=== PATIENT | male | born 1945 | race Caucasian/White ===

== ENCOUNTER 2024-10-17 13:34 | Outpatient (OUT) | payer MEDICARE, BC, SELFPAY ==
--- NOTE | 2024-10-17 13:45 | ECG_ITS ---
[facility] Test Date: 2024-10-17 Pat Name: SINGH BOWMAN Department: Room: - Gender: Male Manager Sap: : 1945 Requested By: MEDINA BUTLER Order Number: [id number] Brayan MD: DWIGHT BARNETT M.D. Measurements Intervals [place] Rate: 78 P: ME: QRS: 12 QRSD: 99 T: 62 QT: 390 QTc: 445 Interpretive Statements ATRIAL FIBRILLATION NONSPECIFIC T-WAVE ABNORMALITY ABNORMAL RHYTHM ECG No previous ECG available for comparison Electronically Signed On 10-17-2024 18:41:51 EDT by DWIGHT BARNETT M.D.
--- NOTE | 2024-10-17 14:52 | XR_ITS ---
[address] [address] Patient Name: SINGH BOWMAN MRN: [id number] date: 1945 Sex: M Assigned Patient Location: [facility] Current Patient Location: [facility] Accession/Order Number: [id number] Exam Date: 10/17/2024 17:53 Report Date: 10/17/2024 17:55 At the request of: MEDINA BUTLER MD Procedure: XR chest 2V Plain film chest 2 view HISTORY: Presurgical evaluation COMPARISON: None FINDINGS: SUPPORT DEVICES: None POSTSURGICAL CHANGES: None HEART: Within normal limits PULMONARY RADHA: Within normal limits MEDIASTINUM: Unremarkable LUNGS AND PLEURA: No acute lung process, pleural effusion or pneumothorax identified. BONY STRUCTURES: Thoracic hyperostosis ADDITIONAL FINDINGS None XR/XR chest 2V IMPRESSION: No acute process. Impression dictated by: Nii Minaya M.D.10/17/2024 5:55 PM Dictation Location: [place] [address] Electronically authenticated by: [id number] Y Date: 10/17/2024 17:55
[2024-10-17 14:57] LABS: Anion Gap 10.8; BUN Creatinine Ratio 13.4; Calcium 8.8 mg/dL (8.5-10.1); Carbon Dioxide 27.4 mmol/L (21.0-32.0); Chloride 104 mmol/L (98-107); Estimated GFR (African America >60 (>=60 mL/min/1.73m^2); Estimated GFR (Non-African Ame 55 (>=60 mL/min/1.73m^2); Glucose 112 mg/dL (74-106); Potassium 4.2 mmol/L (3.5-5.1); Sodium 138 mmol/L (136-145)
[2024-10-17 15:11] LABS: Basophils Absolute Auto 0.1 10^3/uL (0.0-0.1); Basophils Percent Auto 0.7 % (0.2-2.0); Eosinophils Absolute Auto 0.1 10^3/uL (0.0-0.7); Eosinophils Percent Auto 1.1 % (0.9-7.0); Hematocrit 39.8 % (42.0-54.0); Hemoglobin 12.7 g/dL (14.0-18.0); INR 1.23; Immature Granulocytes Abs Auto 0.04 10^3/uL (0.00-0.03); Immature Granulocytes Pct Auto 0.5 % (0.0-0.5); Lymphocytes Absolute Auto 0.8 10^3/uL (1.2-3.8); Mean Corpuscular HGB Conc 31.9 g/dL (29.9-35.2); Mean Corpuscular Hemoglobin 28.7 pg (25.9-34.0); Mean Corpuscular Volume 89.8 fL (80.0-94.0); Mean Platelet Volume 8.6 fL (9.5-13.5); Monocytes Absolute Auto 0.7 10^3/uL (0.3-0.8); Monocytes Percent Auto 7.9 % (1.7-12.0); Neutrophils Absolute Auto 6.9 10^3/uL (1.4-6.5); Neutrophils Percent Auto 80.8 % (43.0-75.0); Partial Thromboplastin Time 39.6 sec (22.3-36.2); Platelet Count 472 10^3/uL (150-450); Prothrombin Time 12.8 sec (9.0-11.6); Red Blood Count 4.43 10^6/uL (4.70-6.10); Red Cell Distribution Width 13.5 % (11.0-15.0); White Blood Count 8.6 10^3/uL (4.0-11.0)
== END 2024-10-17 13:35 | disposition home or self-care (01) ==
LOC: PST 13:36
PROVIDERS: PCP Family Medicine; Visit Provider Urology
DX: Z01.810 Encounter for preprocedural cardiovascular examination (principal); Z01.812 Encounter for preprocedural laboratory examination; N40.1 Benign prostatic hyperplasia with lower urinary tract symptoms
CPT/HCPCS: 36415; 71046; 80048; 85025; 85610; 85730; 93005

== ENCOUNTER 2024-10-17 13:42 | Outpatient (OUT) | payer MEDICARE, BC, SELFPAY ==
[2024-10-17 15:37] LABS: Free T4 2.69 ng/dL (0.76-1.46)
[2024-10-17 15:44] LABS: Free T3 4.44 pg/mL (2.18-3.98); Thyroid Stimulating Hormone <0.007 uIU/mL (0.358-3.740)
== END 2024-10-17 13:43 | disposition home or self-care (01) ==
LOC: LAB 13:43
PROVIDERS: PCP Family Medicine; Visit Provider Internal Medicine
DX: Z01.810 Encounter for preprocedural cardiovascular examination (principal); Z01.812 Encounter for preprocedural laboratory examination; E05.90 Thyrotoxicosis, unspecified without thyrotoxic crisis or storm
CPT/HCPCS: 36415; 80048; 84439; 84443; 84481; 85025; 85610; 85730

== ENCOUNTER 2024-11-01 11:15 | Day surgery (SDC) | payer MEDICARE, BC, SELFPAY ==
[2024-10-17 14:20] VITALS: BP 135/70; PULSE 99; TEMP 36.6; O2SAT 100; BMI 25.0
[2024-11-01] VITALS (18 sets, daily range): BP systolic 102–172; BP diastolic 71–107; PULSE 69–112; TEMP 36.2–36.9; O2SAT 90–97; BMI 23.8
--- OUTSIDE RECORDS SUMMARY | 2024-11-01 11:30 | XMS_ITS | CCD ---
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 Role Phone RACHIDMARY GRACE Referring Unavailable RACHID, MARY GRACE Powell Primary Care Unavailable JUNIE, MENNATALLAH M Admitting Unavailable JUNIE, MENNATALLAH M Attending Unavailable RACHID, MARY GRACE Powell Primary Care Unavailable JUNIE, MENNATALLAH M Attending Unavailable JUINE, MENNATALLAH M Referring Unavailable RACHID, MARY GRACE Powell Primary Care Unavailable JUNIE, MENNATALLAH M Attending Unavailable JUNIE, MENNATALLAH M Referring Unavailable RACHID, MARY GRACE Powell Primary Care Unavailable HERMELINDA GALAN Attending Unavailable RACHID, MARY GRACE Powell Primary Care Unavailable HERMELINDA GALAN Attending Unavailable RACHID, MARY GRACE Powell Primary Care Unavailable EMILIANO ALANIZ Attending Unavailable RACHID, MARY GRACE Powell Referring Unavailable RACHID, MARY GRACE Powell Primary Care Unavailable MEGAN LINO Referring Unavailable RACHID, MARY GRACE Powell Primary Care Unavailable Román IRON CUTTER, Michell R Unavailable Mary Grace Rashid MD Andre Primary Care Provider Román IRON CUTTER, Michell R Unavailable Brooks Jeffery LPN Unavailable RACHID MARY GRACE Powell Primary Care Physician [phone] Medina BUTLER Attending Unavailable Medina BUTLER Attending Unavailable Medina BUTLER Attending Unavailable Medina BUTLER Attending Unavailable Medina BUTLER Attending Unavailable Rachid PALMA, Mary Grace Andre Primary Care Provider Mary Grace Rashid MD Unavailable Rachid PALMA, Mary Grace Andre Primary Care Provider ODELL ROJAS Attending Unavailable RACHID MARY GRACE Powell Referring Unavailable RACHID MARY GRACE Powell Primary Care Unavailable SHIKHA ROWELL Attending Unavailable RACHID MARY GRACE Powell Referring Unavailable SHIKHA ROWELL Attending Unavailable DAVID BYRNE Attending Unavailable MARY GRACE RASHID Referring Unavailable CORNELIO ISSA Attending Unavailable DAVID BYRNE Referring Unavailable MARY GRACE RASHID Attending Unavailable MARY GRACE RASHID Referring Unavailable Medications Current Medications Medication Drug Class(es) Dates Sig (Normalized) Sig (Original) apixaban 5 mg oral tablet (20 sources) Factor Xa Inhibitor Start: 06-15-2022 End: 12-12-2023 take 1 tablet by mouth twice daily apixaban (ELIQUIS) 5 mg tablet TAKE 1 TABLET BY MOUTH TWICE A DAY 60 tablet 11 12/12/2023 Active atorvastatin 20 mg oral tablet (20 sources) HMG-CoA Reductase Inhibitor Start: 06-25-2021 End: 10-19-2024 take 1 tablet by mouth once daily atorvastatin (Lipitor) 20 MG tablet Indications: Mixed hyperlipidemia (CMS/HCC) Take 1 tablet (20 mg) by mouth Daily 90 tablet 11 07/31/2024 Active 24 hr dilTIAZem hydrochloride 180 mg extended release oral capsule (2 sources) Calcium Channel Dara Start: 10-10-2024 take 1 capsule by mouth every twenty-four hours in the morning dilTIAZem XR (DILACOR XR) 180 MG 24 hr capsule Take 1 capsule (180 mg total) by mouth in the morning. 30 capsule 1 10/10/2024 Active donepezil hydrochloride 5 mg oral tablet (6 sources) Start: 10-01-2024 End: 10-01-2025 take 1 tablet by mouth at bedtime donepezil (Aricept) 5 MG tablet Indications: Moderate late onset Alzheimer's dementia, unspecified whether behavioral, psychotic, or mood disturbance or anxiety (CMS/HCC) Take 1 tablet (5 mg) by mouth at bedtime 30 tablet 3 10/01/2024 10/01/2025 Active finasteride 5 mg oral tablet (20 sources) 5-alpha Reductase Inhibitor Start: 10-26-2023 take 1 tablet by mouth once daily finasteride (Proscar) 5 MG tablet Indications: Enlarged prostate TAKE ONE TABLET BY MOUTH DAILY 90 tablet 3 10/26/2023 Active hydroCHLOROthiazide 50 mg / triamterene 75 mg oral tablet (15 sources) Potassium-spar ing Diuretic, Thiazide Diuretic Start: 08-24-2022 End: 10-19-2024 take 1 tablet by mouth once in the morning triamterene-hydroCH LOROthiazid (MAXZIDE) 75-50 mg per tablet Take 1 tablet by mouth in the morning. 30 tablet 11 08/24/2022 10/19/2024 Discontinued (Discontinued by another clinician) Start: 08-24-2022 End: 08-17-2024 take 1 tablet by mouth in the morning triamterene-hydrochlorothiazide (Maxzide ) 75-50 MG tablet Take 1 tablet by mouth in the morning. 08/24/2022 08/17/2024 Discontinued (Therapy completed) methazolAMIDE 50 mg oral tablet (1 source) take 1 tablet by mouth in the morning, then take 1 tablet by mouth at bedtime methazolAMIDE (NEPTAZANE) 50 mg tablet Take 1 tablet (50 mg total) by mouth in the morning and 1 tablet (50 mg total) before bedtime. Active methIMAzole 10 mg oral tablet (9 sources) Thyroid Hormone Synthesis Inhibitor Start: 09-18-19 End: 03-17-20 take 1 tablet by mouth in the morning methIMAzole (Tapazole) 10 MG tablet Indications: Hyperthyroidism (CMS/HCC) Take 1 tablet (10 mg) by mouth in the morning and 1 tablet (10 mg) before bedtime. 180 tablet 1 09/18/2024 03/17/2025 Active metoprolol tartrate 25 mg oral tablet (14 sources) beta-Adrenergic Dara Start: 09-10-19 take 25 mg by mouth once daily metoprolol 25 mg, Oral, Daily, Refills(s) 0 Start Date: 09/10/24 Status: Ordered Start: 09-06-2024 End: 09-06-2025 take 1 tablet by mouth once daily metoprolol succinate XL (Toprol-XL) 25 MG 24 hr tablet Indications: Hyperthyroidism (CMS/HCC) Take 1 tablet (25 mg) by mouth Daily Do not crush or chew. 30 tablet 11 09/06/2024 09/06/2025 Active predniSONE 20 mg oral tablet (7 sources) Start: 09-06-2024 End: 09-20-2024 take 1 tablet by mouth once daily predniSONE (Deltasone) 20 MG tablet Indications: Hyperthyroidism (CMS/HCC) Take 1 tablet (20 mg) by mouth Daily for 14 days 14 tablet 09/06/2024 09/20/2024 Active tamsulosin hydrochloride 0.4 mg oral capsule (20 sources) alpha-Adrenerg ic Dara Start: 09-23-2023 End: 04-12-2025 take 1 capsule by mouth once daily tamsulosin (Flomax) 0.4 MG 24 hr capsule Indications: Enlarged prostate Take 1 capsule (0.4 mg) by mouth Daily 90 capsule 11 04/12/2024 04/12/2025 Active Completed/Discontinued Medications Medication Drug Class(es) Dates Sig (Normalized) Sig (Original) acetaminophen 500 mg oral capsule (4 sources) End: 10-06-2023 acetaminophen 500 mg capsule 2 tablet 0 10/06/2023 Discontinued amiodarone hydrochloride 200 mg oral tablet (5 sources) Antiarrhythmic End: 08-17-2024 amiodarone (Pacerone) 200 MG tablet 1 (one) time each day at the same time. 08/17/2024 Discontinued (Med list cleanup) aspirin 81 mg chewable tablet (5 sources) Platelet Aggregation Inhibitor, Nonsteroidal Anti-inflammatory Drug End: 08-17-2024 ASPIRIN 81 MG chewable tablet 1 (one) time each day at the same time. 08/17/2024 Discontinued (Med list cleanup) ciprofloxacin 500 mg oral tablet (2 sources) Quinolone Antimicrobial Start: 09-10-2024 take 1 tablet by mouth once daily Cipro 500 mg Tab 500 mg = 1 tab(s), Oral, Daily, take one tab day before procedure and one tab after procedure, # 2 tab(s), Refills(s) 0, Pharmacy: [id number], 188, cm, 09/10/24 11:28:00 EST, Height/Length Dosing, 91.1, kg, 09/10/24 11:28:00 EST, Weight Dosing Start Date: 09/10/24 Status: Ordered Problems Active Problems Problem Classification Problem Date Documented Date Episodic/Chronic Biliary tract disease (2 sources) Gallstone 09-10-2024 Episodic Cardiac dysrhythmias (20 sources) Paroxysmal atrial fibrillation; Translations: [Longstanding persistent atrial fibrillation] Onset: 06-01-2021 Resolved: 08-16-2023 01-25-2023 Chronic Conditions associated with dizziness or vertigo (20 sources) Meniere's disease of right inner ear; Translations: [Meniere's disease, right ear] Onset: 01-25-2023 01-25-2023 Chronic Delirium, dementia, and amnestic and other cognitive disorders (8 sources) Senile dementia; 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] Onset: 10-04-2024 10-01-2024 Chronic Disorders of lipid metabolism (20 sources) Mixed hyperlipidemia; Translations: [Mixed hyperlipidemia] Onset: 04-22-2016 01-25-2023 Chronic Essential hypertension (2 sources) Hypertensive disorder 09-10-2024 Chronic Headache; including migraine (2 sources) Headache 09-10-2024 Episodic Hyperplasia of prostate (20 sources) Large prostate ; Translations: [Benign prostatic hyperplasia without lower urinary tract symptoms] Onset: 04-22-2016 04-12-2024 Chronic Osteoarthritis (2 sources) Arthritis 09-10-2024 Chronic Other diseases of bladder and urethra (2 sources) Diverticulum of bladder; Translations: [Diverticulum of bladder] Onset: 09-11-2024 Chronic Other ear and sense organ disorders (20 sources) Bilateral hearing loss; Translations: [Unspecified hearing loss, bilateral] Onset: 01-25-2023 01-25-2023 Chronic Other ear and sense organ disorders (20 sources) Mixed conductive AND sensorineural hearing loss; Translations: [Mixed conductive and sensorineural hearing loss, unilateral, right ear with restricted hearing on the contralateral side] Onset: 01-25-2023 01-25-2023 Chronic Other nervous system disorders (20 sources) Neuropathy; Translations: [Polyneuropathy, unspecified] Onset: 04-22-2016 01-25-2023 Chronic Other nervous system disorders (20 sources) Chronic pain; Translations: [Other chronic pain] Onset: 12-22-2020 01-25-2023 Chronic Residual codes; unclassified (6 sources) Memory impairment; Translations: [Other amnesia] 08-17-2024 Episodic Residual codes; unclassified (2 sources) Tobacco user 09-10-2024 Episodic Substance-related disorders (1 source) Smoker 09-11-2024 Chronic Comment on above: Added secondary to d ocumentation in Social History. Thyroid disorders (20 sources) Hyperthyroidism; Translations: [Thyrotoxicosis, unspecified without thyrotoxic crisis or storm] Onset: 10-04-2024 08-19-2024 Chronic Unclassified (2 sources) Pre-op Exam Onset: 11-16-2023 Unclassified (1 source) history of colon polyps Onset: 10-14-2023 Unclassified (1 source) Longstanding persistent atrial fibrillation; Translations: [Longstanding persistent atrial fibrillation] Onset: 05-24-2022 Unclassified (1 source) New Patient Onset: 10-19-2024 Urinary tract infections (2 sources) Recurrent urinary tract infection 09-10-2024 Episodic Past or Other Problems Problem Classification Problem Date Documented Da te Episodic/Chronic Gastrointestinal hemorrhage (20 sources) Rectal hemorrhage; Translations: [Hemorrhage of anus and rectum] Onset: 08-30-2019 Resolved: 08-16-2023 08-16-2023 Episodic Heart valve disorders (20 sources) Non-rheumatic mitral regurgitation ; Translations: [Nonrheumatic mitral (valve) insufficiency] Onset: 01-25-2023 Resolved: 08-16-2023 08-16-2023 Chronic Mood disorders (20 sources) Mood disorders Onset: 08-16-2023 08-16-2023 Other and unspecified benign neoplasm (1 source) Benign neoplasm of transverse colon; Translations: [Benign neoplasm of transverse colon] Onset: 09-11-2019 Episodic Other and unspecified benign neoplasm (1 source) Personal history of colonic polyps; Translations: [Personal history of colonic polyps] Onset: 08-30-2019 Episodic Other and unspecified benign neoplasm (20 sources) Adenomatous polyp of colon ; Translations: [Benign neoplasm of transverse colon] Onset: 09-11-2019 01-25-2023 Episodic Other and unspecified benign neoplasm (20 sources) History of adenomatous polyp of colon; Translations: [Personal history of colonic polyps] Onset: 08-30-2019 01-25-2023 Episodic Other and unspecified benign neoplasm (1 source) History of polyp of colon; Translations: [Personal history of colonic polyps] 09-05-2023 Episodic Other ear and sense organ disorders (20 sources) Hearing loss; Translations: [Unspecified hearing loss, unspecified ear] Onset: 01-25-2023 Resolved: 08-16-2023 08-16-2023 Chronic Other ear and sense organ disorders (20 sources) Bilateral tinnitus; Translations: [Tinnitus, bilateral] Onset: 01-25-2023 01-25-2023 Episodic Other gastrointestinal disorders (20 sources) Slow transit constipation; Translations: [Slow transit constipation] Onset: 06-14-2019 01-25-2023 Episodic Other lower respiratory disease (1 source) Shortness of breath; Translations: [Shortness of breath] Onset: 06-01-2021 Episodic Other lower respiratory disease (20 sources) Dyspnea; Translations: [Shortness of breath] Onset: 06-01-2021 01-25-2023 Episodic Other nervous system disorders (20 sources) Incoordination; Translations: [Unspecified lack of coordination] Onset: 01-25-2023 01-25-2023 Episodic Other nervous system disorders (20 sources) Unsteady when standing; Translations: [Unsteadiness on feet] Onset: 01-25-2023 Resolved: 08-16-2023 08-16-2023 Episodic Otitis media and related conditions (20 sources) Dysfunction of right eustachian tube; Translations: [Unspecified Eustachian tube disorder, right ear] Onset: 01-25-2023 01-25-2023 Episodic Residual codes; unclassified (1 source) Family history of cancer of colon; Translations: [Family history of malignant neoplasm of digestive organs] 09-05-2023 Episodic Unclassified (10 sources) Onset: 09-11-2019 09-11-2019 Results Test Name Value Interpretation Reference Range Facility ALL BASIC METABOLIC PANELon 10-17-2024 Anion gap [Moles/Vol] 10.8 mmol/L [facility] Calcium [Mass/Vol] 8.8 mg/dL 8.5 - 10. 1 mg/dL [facility] Chloride [Moles/Vol] 104 mmol/L 98 - 10 7 mmol/L [facility] CO2 [Moles/Vol] 27.4 mmol/L 21.0 - 32.0 mmol/L [facility] Creatinine [Mass/Vol] 1.27 mg/dL 0.70 - 1.30 mg/dL [facility] GFR/1.73 sq M.predicted CKD-EPI (S/P/Bld) [Vol rate/Area] >60 >=60 mL/min/1.73m 2 [facility] Glucose [Mass/Vol] 112 mg/dL High 74 - 106 mg/dL NO [facility] Interpretation and review of laboratory results Abnormal [facility] Potassium [Moles/Vol] 4.2 mmol/L 3.5 - 5.1 mmol/L [facility] Sodium [Moles/Vol] 138 mmol/L 136 - 145 mmol/L [facility] EGFR-NON AF SAUDI ARABIAN 55 Low >=60 mL/min/1.73m 2 [facility] Urea nitrogen [Mass/Vol] 17 mg/dL 7.0 - 18.0 mg/dL [facility] Urea nitrogen/Creatinine [Mass ratio] 13.4 mg/mg [facility] Healthcar e ECG 12-LEADon 10-17-2024 [place] [address] Electrocardiograph Report Signed Patient: SINGH BOWMAN MR#: [id number] : 1945 Acct:[id number] Age/Sex: 79 / M ADM Date: 10/17/24 Loc: [facility] [place] Attending Dr: Medina Butler M.D. Ordering Physician: Medina Butler M.D. 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 Measurements Intervals [place] Rate: 78 P: UT: QRS: 12 QRSD: 99 T: 62 QT: 390 QTc: 445 Interpretive Statements ATRIAL FIBRILLATION NONSPECIFIC T-WAVE ABNORMALITY ABNORMAL RHYTHM ECG No previous ECG available for comparison Electronically Signed On 10-17-2024 18:41:51 EDT by DWIGHT BARNETT M.D. Dictated By: DWIHGT BARNETT Signed By: 10/17/24 1841 DD/ 1425 TD/TT: Digital Ad Trafficker: [facility] Radiology, Radiologist, - 10/17/2024 The [place] [id number] Electrocardiograph Report Signed Patient: SINGH BOWMAN MR#: [id number] : 1945 Acct:[id number] Age/Sex: 79 / M ADM Date: 10/17/24 Loc: PST Attending Dr: Medina Butler M.D. Ordering Physician: Medina Butler M.D. 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 Measurements Intervals Borden Rate: 78 P: UT: QRS: 12 QRSD: 99 T: 62 QT: 390 QTc: 445 Interpretive Statements ATRIAL FIBRILLATION NONSPECIFIC T-WAVE ABNORMALITY ABNORMAL RHYTHM ECG No previous ECG available for comparison Electronically Signed On 10-17-2024 18:41:51 EDT by DWIGHT BARNETT M.D. Dictated By: DWIGHT BARNETT Signed By: 10/17/24 1841 DD/ 1425 TD/TT: Digital Ad Trafficker: [facility] [employer] Radiology Study observation (narrative) [facility] [employer] ECG 12-LEADOrdered By: [employer] [facility] on 10-17-2024 [facility] Work Phone: XR CHEST 2Von 10-17-[address] [address] XRay Report Signed Patient: SINGH BOWMAN MR#: [id number] : 1945 Acct:[id number] Age/Sex: 79 / M ADM Date: 10/17/24 Loc: PST Attending Dr: Medina Butler M.D. Ordering Physician: Medina Butler M.D. Date of Service: 10/17/24 Procedure(s): XR chest 2V Accession Number(s): [id number] cc: MARY GRACE RASHID ; Medina Butler M.D. [address] [address] Patient Name: SINGH BOWMAN MRN: [id number] date: 1945 Sex: M Assigned Patient Location: SURGOUT Current Patient Location: [facility] Accession/Order Number: [id number] Exam Date: 10/17/2024 17:53 Report Date: 10/17/2024 17:55 At the request of: MEDINA BUTLER MD Procedure: XR chest 2V Plain film chest 2 view HISTORY: Presurgical evaluation COMPARISON: None FINDINGS: SUPPORT DEVICES: None POSTSURGICAL CHANGES: None HEART: Within normal limits PULMONARY RADHA: Within normal limits MEDIASTINUM: Unremarkable LUNGS AND PLEURA: No acute lung process, pleural effusion or pneumothorax identified. BONY STRUCTURES: Thoracic hyperostosis ADDITIONAL FINDINGS None XR/XR chest 2V IMPRESSION: No acute process. Impression dictated by: Nii Minaya M.D.10/17/2024 5:55 PM Dictation Location: [place] [address] Electronically authenticated by: [id number] Y Date: 10/17/2024 17:55 Dictated By: Nii Minaya D.O. Signed By: 10/17/241757 DD/ 54 TD/TT: Digital Ad Trafficker: [facility] Radiology, Radiologist, MD - 10/17/2024 [place] [address] XRay Report Signed Patient: SINGH BOWMAN MR#: [id number] : 1945 Acct:[id number] Age/Sex: 79 / M ADM Date: 10/17/24 Loc: [facility] [place] Attending Dr: Medina Butler M.D. Ordering Physician: Medina Butler M.D. Date of Service: 10/17/24 Procedure(s): XR chest 2V Accession Number(s): [id number] cc: MARY GRACE RASHID ; Medina Butler M.D. The [address] [address] Patient Name: SINGH BOWMAN MRN: [facility]:[id number] date: 1945 Sex: M Assigned Patient Location: [facility]OUT [facility] Accession/Order Number: [id number] Exam Date: 10/17/2024 17:53 Report Date: 10/17/2024 17:55 At the request of: MEDINA BTULER MD Procedure: XR chest 2V Plain film chest 2 view HISTORY: Presurgical evaluation COMPARISON: None FINDINGS: SUPPORT DEVICES: None POSTSURGICAL CHANGES: None HEART: Within normal limits PULMONARY RADHA: Within normal limits MEDIASTINUM: Unremarkable LUNGS AND PLEURA: No acute lung process, pleural effusion or pneumothorax identified. BONY STRUCTURES: Thoracic hyperostosis ADDITIONAL FINDINGS None XR/XR chest 2V IMPRESSION: No acute process. Impression dictated by: Nii Minaya M.D.10/17/2024 5:55 PM Dictation Location: [place] Electronically authenticated by: [id number] Y Date: 10/17/2024 17:55 Dictated By: Nii Minaya D.O. Signed By: 10/17/241757 DD/ 54 TD/TT: Digital Ad Trafficker: [facility] [employer] Radiology Study observation (narrative) [facility] [employer] XR CHEST 2VOrdered By: [facility] on 10-17-2024 [facility] Work Phone: Ambulatory Visit Summaryon 0 09-11-2024 Ambulatory Visit Summary Ambulatory Visit Summary SINGH BOWMAN :1945 Visit Date:09/11/2024 Ambulatory Visit Instructions Your Diagnosis BPH with obstruction/lower urinary tract symptoms Bladder diverticulum Your Care Team Attending Physician - CARRIE PALMA, Medina Vazquez Primary Care Physician - RACHID PALMA, MARY GRACE Powell This Is Your Medications List ciprofloxacin (Cipro 500 mg Tab) Contact prescribing physician if questions or concerns apixaban (Eliquis 5 mg oral tablet) atorvastatin (atorvastatin 20 mg Tab) finasteride metoprolol predniSONE (predniSONE 20 mg Tab) tamsulosin (tamsulosin 0.4 mg Cap) Procedures Performed Cystoscopy (09/11/2024), Appendectomy, Cataracts, Cholecystectomy, Colonoscopy, Tonsillectomy. Discharge Vitals Heart Rate (Peripheral) 68 Respiratory Rate 16 Blood Pressure 150/90 Height 188 cm Height 74 in Weight 91.1 kg Weight 200.841 lb BMI 25.78 What to do next Scheduled Follow-Up Appointments Tuesday 9:00 AM EDT With: Where: [facility] [address] [place] [address]- Tuesday 10:45 AM EDT With: Medina BUTLER MD Where: [facility] [address] [place] [address]- You Need to Schedule the Following Appointments Follow Up with Medina BUTLER MD, URL When: Where: [facility] [address] [place] [address], [facility] [place] [place] [address]- Medications What How Much When Instructions Unchanged ciprofloxacin (Cipro 500 mg Tab) 1 Tablets By Mouth Every day take one tab day before procedure and one tab after procedure Unchanged apixaban (Eliquis 5 mg oral tablet) 1 Tablets Contact prescribing physician if questions or concerns Unchanged atorvastatin (atorvastatin 20 mg Tab) 1 Tablets Contact prescribing physician if questions or concerns Unchanged finasteride 5 Milligram By Mouth Every day Contact prescribing physician if questions or concerns Unchanged metoprolol 25 Milligram By Mouth Every day Contact prescribing physician if questions or concerns Unchanged predniSONE (predniSONE 20 mg Tab) 1 Tablets Contact prescribing physician if questions or concerns Unchanged tamsulosin (tamsulosin 0.4 mg Cap) 1 Capsules Contact prescribing physician if questions or concerns Medications and Immunizations Administered Given lidocaine Top 2% Gel w/Appl 11 mL, 11 mL, Topical. For: BPH with obstruction/lower urinary tract symptoms Allergies No Known Allergies Problems Ongoing - Any problem that you are currently receiving treatment for. Arthritis Atrial fibrillation Bladder diverticulum BPH with obstruction/lower urinary tract symptoms Frequent UTI Gall stone Headache High cholesterol Hypertension Hyperthyroidism Smoker Patient Survey You may receive a survey via text or e-mail asking about your office visit. Please share your experience with us by completing your survey. We appreciate your feedback and thank you for choosing us for your care. Education Materials Transurethral Resection of the Prostate, Care After The following information offers guidance on how to care for yourself after your procedure. Your health care provider may also give you more specific instructions. If you have problems or questions, contact your health care provider. What can I expect after the procedure? After the procedure, it is common to have: ??? Mild pain in your lower abdomen. ??? Soreness or mild discomfort in your penis or when you urinate. This is from having the catheter inserted during the procedure. ??? A sudden urge to urinate (urgency). ??? A need to urinate often. ??? A small amount of blood in your urine. You may notice some small blood clots in your urine. These are normal. Follow these instructions at home: Medicines ??? Take [id number] and prescription medicines only as told by your health care provider. ??? If you were prescribed an antibiotic medicine, take it as told by your health care provider. Do not stop taking the antibiotic even if you start to feel better. Activity ??? Rest as told by your health care provider. ??? Avoid sitting for a long time without moving. Get up to take short walks every 1???2 hours. This is important to improve blood flow and breathing. Ask for help if you feel weak or unsteady. You may increase your physical activity gradually as you start to feel better. ??? Do not drive or operate machinery until your health care provider says that it is safe. ??? Do not ride in a car for long periods of time, or as told by your health care provider. ??? Avoid intense physical activity for as long as told by your health care provider. ??? Do not lift anything that is heavier than 10 lb (4.5 kg), or the limit that you are told, until your health care provider says that it is s (more content not included)... Normal [facility] [facility] Urology Office/Clinic Noteon 09-11-2024 Urology Office/Clinic Note Urology Office/Clinic Note Chief Complaint Cysto HPI Staff Here for cysto to eval candidacy for prostate procedures. Abx taken. History of Present Illness Tests reviewed: I have reviewed the previous health record information and history for this patient from Dr. Butler. I have reviewed and verified the staff HPI to be accurate for this encounter. Review of Systems PHQ Score Initial Depression Screen Score: 0 SCORE ROS - Provider Constitutional: denies weight loss, denies hot flashes. Eyes: denies eye problems. Gastrointestinal: denies nausea, denies vomiting. Cardiovascular: denies chest pain or angina. Integumentary: no dryness Musculoskeletal: denies musculoskeletal symptoms. ENMT: denies otolaryngeal symptoms. Respiratory: no shortness of breath. Heme/Lymph: denies easy bleeding tendency, denies easy bruising tendency. Psychiatric: no confusion, no anxiety. Genitourinary: See HPI. Physical Exam Vitals & Measurements HR: 68(Peripheral) RR: 16 BP: 150/90 HT: 74 in HT: 188 cm WT: 91.1 kg WT: 200.841 lb BMI: 25.78 General Appearance: alert, no distress, well nourished, well developed male. Procedure Operative Information Anesthesia Type: Local Procedure: Local Cystoscopy Complications: None Surgical risks, benefits, details of the procedure have been explained to the patient. Full informed consent has been obtained. Intraoperative Information Prepped: Patient is brought back to the endoscopy suite. Patient is placed in supine position. Patient prepped in the usual fashion with Betadine solution. 2% Xylocaine Jelly is placed per Urethra. After waiting several minutes, the Cystoscope is introduced. The Urethra is: Normal The Prostatic Urethra is: _Trilobar obstruction and friable. The Bladder: _No tumors or stones, Trabeculated: Severe (3), open deep diverticuli. The Ureteral orifices: Show efflux of clear urine Specimens Removed: None Removal: Cystoscope is removed. The patient tolerated it well. Postoperative Information Patient is discharged home with antibiotic coverage. Follow up arranged. Assessment/Plan 1. BPH with obstruction/lower urinary tract symptoms (N40.1: Benign prostatic hyperplasia with lower urinary tract symptoms) Pt had IO cysto today wo complications to assess candidacy for prostate procedures. Taking Tamsulosin 0.4mg qd and Finasteride 5mg qd per PCP. Recommended TURP. Pt agreeable. -Cont PSA monitoring with PCP. -Will schedule TURP. The procedural risks, benefits, details, and treatment alternatives have been discussed with the patient. These include bleeding, infection, need for blood transfusion, continued urinary difficulties, urinary leakage which could be permanent, need for catheter, retrograde ejaculation, scar tissue formation in the urinary channel or area of prostate shaving, erection problems, blood clot formation in the lower extremities which could travel to the lungs, among others. A secondary operation could also be required. Full informed consent has been obtained. Will order General anesthesia. 2. 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 -TURP above. Follow-up With When Contact Information CARRIE PALMA, Medina Vazquez, URL [facility] [address], [place] [address]- Additional Instructions: schedule TURP Patient Education Transurethral Resection of the Prostate, Care After Transurethral Resection of the Prostate I, Sofy Harrison, personally scribed for Dr. Butler on 09/11/2024 14:10:41. . Documentation recorded by the scribe, Sofy Harrison, accurately reflects the services(s) I performed and decisions made by me. Authenticated by Dr. Butler on 09/11/2024 14:13:46. Problem List/Past Medical History Ongoing Arthritis Atrial fibrillation Bladder diverticulum BPH with obstruction/lower urinary tract symptoms Frequent UTI Gall stone Headache High cholesterol Hypertension Hyperthyroidism Smoker Historical No qualifying data Procedure/Surgical History Cystoscopy (09/11/2024), Appendectomy, Cataracts, Cholecystectomy, Colonoscopy, Tonsillectomy. Medications atorvastatin 20 mg Tab, 20 mg= 1 tab(s) Cipro 500 mg Tab, 500 mg= 1 tab(s), Oral, Daily Eliquis 5 mg oral tablet, 5 mg= 1 tab(s) finasteride, 5 mg, Oral, Daily metoprolol, 25 mg, Oral, Daily predniSONE 20 mg Tab, 20 mg= 1 tab(s) tamsulosin 0.4 mg Cap, 0.4 mg= 1 cap(s) Allergies No Known Allergies Social History Alcohol Never., 09/10/2024 Substance Abuse Never., 09/10/2024 Tobacco 10 or more cigarettes (1/2 pack or more)/day in last 30 days, Smoker, current status unknown, 25 years Tobacco Use:. Never Smokeless Tobacco Use:. Cigarettes, Yes, 09/11/2024 Family History Arthritis: Mother. Breast cancer: Sister.Negative: Mother. Heart disease: Mother and Father. High cholesterol: Mother and Father. (more content not included)... Normal [facility] Comment on above: Result Comment: Elec tronically Signed By: Medina BUTLER MD\.br\Date and Time Signed: 09/11/24 14:13 EST\.br\Electronically Co-Signed By: Sofy Harrison\.br\Date and Time Co-Signed: 09/11/24 14:10 EST Ambulatory Visit Summaryon 0 09-10-2024 Ambulatory Visit Summary Ambulatory Visit Summary SINGH BOWMAN :1945 Visit Date:09/10/2024 Ambulatory Visit Instructions Your Diagnosis BPH with obstruction/lower urinary tract symptoms Your Care Team Attending Physician - CARRIE PALMA, Medina Vazquez Primary Care Physician - MARY GRACE RASHID MD This Is Your Medications List ciprofloxacin (Cipro 500 mg Tab) Contact prescribing physician if questions or concerns apixaban (Eliquis 5 mg oral tablet) atorvastatin (atorvastatin 20 mg Tab) finasteride metoprolol predniSONE (predniSONE 20 mg Tab) tamsulosin (tamsulosin 0.4 mg Cap) Procedures Performed Appendectomy, Cataracts, Cholecystectomy, Colonoscopy, Tonsillectomy. Discharge Vitals Temperature (Oral) 37 ???C Heart Rate (Peripheral) 61 Respiratory Rate 18 Blood Pressure 139/78 Height 188 cm Height 74 in Weight 91.1 kg Weight 200.841 lb BMI 25.78 What to do next You Need to Schedule the Following Appointments Follow Up with CARRIE PALMA, Medina Vazquez, URL When: Comments: sched cysto Where: [facility] [address], [place] [address] [phone] Medications What How Much When Instructions New ciprofloxacin (Cipro 500 mg Tab) 1 Tablets By Mouth Every day take one tab day before procedure and one tab after procedure Pickup at [facility] Unchanged apixaban (Eliquis 5 mg oral tablet) 1 Tablets Contact prescribing physician if questions or concerns Unchanged atorvastatin (atorvastatin 20 mg Tab) 1 Tablets Contact prescribing physician if questions or concerns Unchanged finasteride 5 Milligram By Mouth Every day Contact prescribing physician if questions or concerns Unchanged metoprolol 25 Milligram By Mouth Every day Contact prescribing physician if questions or concerns Unchanged predniSONE (predniSONE 20 mg Tab) 1 Tablets Contact prescribing physician if questions or concerns Unchanged tamsulosin (tamsulosin 0.4 mg Cap) 1 Capsules Contact prescribing physician if questions or concerns Pharmacy Information [facility]: [address] [place], [place] [id number] [phone] Allergies No Known Allergies Problems Ongoing - Any problem that you are currently receiving treatment for. Arthritis Atrial fibrillation BPH with obstruction/lower urinary tract symptoms Frequent UTI Gall stone Headache High cholesterol Hypertension Hyperthyroidism Patient Survey You may receive a survey via text or e-mail asking about your office visit. Please share your experience with us by completing your survey. We appreciate your feedback and thank you for choosing us for your care. Education Materials Cystoscopy Cystoscopy is a procedure that is used to help diagnose and sometimes treat conditions that affect the lower urinary tract. The lower urinary tract includes the bladder and the urethra. The urethra is the tube that drains urine from the bladder. Cystoscopy is done using a thin, tube-shaped instrument with a light and camera at the end (cystoscope). The cystoscope may be hard or flexible, depending on the goal of the procedure. The cystoscope is inserted through the urethra, into the bladder. Cystoscopy may be recommended if you have: ??? Urinary tract infections that keep coming back. ??? Blood in the urine (hematuria). ??? An inability to control when you urinate (urinary incontinence) or an overactive bladder. ??? Unusual cells found in a urine sample. ??? A blockage in the urethra, such as a urinary stone. ??? Painful urination. ??? An abnormality in the bladder found during an intravenous pyelogram (IVP) or CT scan. Cystoscopy may also be done to remove a sample of tissue to be examined under a microscope (biopsy). Tell a health care provider about: ??? Any allergies you have. ??? All medicines you are taking, including vitamins, herbs, eye drops, creams, and quzg-rol-odwuqcs medicines. ??? Any problems you or family members have had with anesthetic medicines. ??? Any blood disorders you have. ??? Any surgeries you have had. ??? Any medical conditions you have. ??? Whether you are or may be . What are the risks? Generally, this is a safe procedure. However, problems may occur, including: ??? Infection. ??? Bleeding. ??? Allergic reactions to medicines. ??? Damage to other structures or organs. What happens before the procedure? Medicines Ask your health care provider about: ??? Changing or stopping your regular medicines. This is especially important if you are taking diabetes medicines or blood thinners. ??? Taking medicines such as aspirin and ibuprofen. These medicines can thin your blood. Do not take these medicines unless your health care provider tells you to take them. ??? Taking edxe-enj-kfowxwh medicines, vitamins, herbs, and supplements. Tests You may have an exam or testing, such as: ??? X-rays o (more content not included)... Normal [facility] US THYROIDon 08-24-2024 US THYROID EXAM: Thyroid Ultrasound: REASON FOR EXAM: Hyperthyroidism. COMPARISON: None. TECHNIQUE: Grayscale imaging with color flow Doppler performed. FINDINGS: Heterogeneous parenchymal echotexture of each lobe of the thyroid gland. Nodularity in the right lobe of the thyroid gland measuring 0.4 x 0.4 x 0.2 cm is anechoic corresponding to a cyst. Solid hypoechoic focus in the mid pole of the right lobe of the thyroid gland measuring 0.5 x 0.3 x 0.2 cm. This is well-defined. No associated calcifications. Hypoechoic solid nodule in the mid portion of the left lobe of the thyroid gland, 0.4 x 0.4 x 0.2 cm. This nodule is well-defined. No associated calcifications. Normal color flow signal in each lobe of the thyroid gland. Measurements: Right Lobe: 4.48 x 1.96 x 2.36 cm Left Lobe: 5.04 x 1.79 x 2.36 cm Isthmus: 0.25 cm IMPRESSION: Subtle multinodular appearing thyroid gland. TI-RADS 2 RECOMMENDATION: Followup as per clinical indication. *This report is generated using voice recognition reporting (SpeakPhone). On occasion ShopPadcribe erroneously drops words from the report or replaces the spoken word with similar sounding words. Please call with any questions/concerns regarding this report.* Dictated and transcribed 08/24/2024/robert This report has been electronically signed and approved by the interpreting radiologist. Normal Not Available POCT EKGon 11-16-2023 [facility] Surgical Pathologyon 024 Surgical Pathology Normal [facility] Comment on above: Result Comment: [facility] [address] [place] [address] Surgical Pathology Consultation Patient Name:SINGH BOWMAN:1945 (Age: 78)Gender:MTaken:4Reported:10/18/2023hysician(s):Promise Zaman MD ([phone])Copy To: Rec. 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 Comment Intradepartmental consultation has been completed on this case by a GI pathologist who concurs with the above diagnosis. Report Electronically Signed Out eak/10/18/2023Annalise David MD Interpretation performed at [facility], [address] [place] [address], License number: [id number]. Clinical History History of colon polyps. Gross Description Received in formalin labeled GRACIE, descending colon polyp are 4 osborn bits/strips of soft tissue, ranging from 0.2-1.0 cm in greatest dimension. Filtered and submitted in a single cassette. (1, ns, [id number], m3) [place] [facility] [place] Specimen(s) Received Descending colon polyp Fee Codes(s): 1; 03174 CBC AND AUTO DIFFon 09-23-19 24 ABSOLUTE BASOPHIL 0.0 X10E9/L Normal 0.0-0.2 [facility] Comment on above: Performed By: #### 1 9123-9, CMP, CBCA, 58605-6 #### [facility] ([id number]) [address], [address] [place] [address] ABSOLUTE NEUTROPHIL 3.8 X10E9/L Normal 1.5-6.6 [facility] Comment on above: Performed By: #### 1 9123-9, CMP, CBCA, 58941-4 #### [facility] ([id number]) [address], [address] [place] [address] Basophils/100 WBC (Bld) 0.7 % Normal [facility] Comment on above: Performed By: #### 1 9123-9, CMP, CBCA, 36642-9 #### [facility] ([id number]) [address], [address] [place] [address] Eosinophils (Bld) [#/Vol] 0.1 10*3/uL Normal 0.0-0.4 [facility] Comment on above: Performed By: #### 1 9123-9, CMP, CBCA, 81474-6 #### [facility] ([id number]) [address], [facility] [facility] [address] [place] [address] Eosinophils/100 WBC (Bld) 2.5 % Normal [facility] Comment on above: Performed By: #### 1 91-9, CMP, CBCA, 68627-5 #### [facility] ([id number]) [address], [facility] [facility] [address] [place] [address] Erythrocyte distribution width (RBC) [Ratio] 13.7 % Normal 11.5-15.0 [facility] Comment on above: Performed By: #### 1 9123-9, CMP, CBCA, 78116-4 #### [facility] ([id number]) [address], [facility] [facility] [address] [place] [address] Hematocrit (Bld) [Volume fraction] 43.3 % Normal 39-49 [facility] Comment on above: Performed By: #### 1 9123-9, CMP, CBCA, 99137-1 #### [facility] ([id number]) [address] [address] [place] [address] Hemoglobin (Bld) [Mass/Vol] 14.5 g/dL Normal 13.0-17.0 [facility] Comment on above: Performed By: #### 1 9123-9, CMP, CBCA, 31474-3 #### [facility] ([id number]) [address] [address] [place] [address] Lymphocytes (Bld) [#/Vol] 1.4 10*3/uL Normal 1.0-3.5 [facility] Comment on above: Performed By: #### 1 9123-9, CMP, CBCA, 58758-8 #### [facility] ([id number]) [address], [address] [place] [address] Lymphocytes/100 WBC (Bld) 23.5 % Normal [facility] Comment on above: Performed By: #### 1 9123-9, CMP, CBCA, 33707-7 #### [facility] ([id number]) [address], [address] [place] [address] MCH (RBC) [Entitic mass] 29.8 pg Normal 27-34 [facility] Comment on above: Performed By: #### 1 91-9, CMP, CBCA, 76500-2 #### [facility] ([id number]) [address], [address] [place] [address] MCHC (RBC) [Mass/Vol] 33.5 g/dL Normal 32-36 [facility] Comment on above: Performed By: #### 1 91-9, CMP, CBCA, 80026-6 #### [facility] ([id number]) [address], [address] [place] [address] MCV (RBC) [Entitic vol] 89 fL Normal 80-100 [facility] Comment on above: Performed By: #### 1 9123-9, CMP, CBCA, 81320-2 #### [facility] ([id number]) [address], [address] [place] [address] Monocytes (Bld) [#/Vol] 0.5 10*3/uL Normal 0-0.9 [facility] Comment on above: Performed By: #### 1 9123-9, CMP, CBCA, 02481-1 #### [facility] ([id number]) [address], [address] [place] [address] Monocytes/100 WBC (Bld) 8.1 % Normal [facility] Comment on above: Performed By: #### 1 9123-9, CMP, CBCA, 61320-3 #### [facility] ([id number]) [address], [address] [place] [address] Neutrophils/100 WBC (Bld) 65.2 % Normal [facility] Comment on above: Performed By: #### 1 9123-9, CMP, CBCA, 57459-6 #### [facility] ([id number]) [address], [address] [place] [address] Platelet mean volume (Bld) [Entitic vol] 7.4 fL Normal 7-12 [facility] Comment on above: Performed By: #### 1 9123-9, CMP, CBCA, 54806-4 #### [facility] ([id number]) [address], [address] [place] [address] Platelets (Bld) [#/Vol] 216 10*3/uL Normal 150-450 [facility] Comment on above: Performed By: #### 1 9123-9, CMP, CBCA, 82367-1 #### [facility] ([id number]) [address], [address] [place] [address] RBC COUNT 4.85 X10E12/L Normal 4.10-5.70 [facility] Comment on above: Performed By: #### 1 9123-9, CMP, CBCA, 91340-6 #### [facility] ([id number]) [address], [address] [place] [address] WBC (Bld) [#/Vol] 5.9 10*3/uL Normal 4.0-11.0 [facility] Comment on above: Performed By: #### 1 9123-9, CMP, CBCA, 16651-9 #### [facility] ([id number]) [address], [address] [place] [address] COMPREHENSIVE METABOLIC PANE John 09-23-2023 Albumin [Mass/Vol] 4.2 g/dL Normal 3.2-5.3 [facility] Comment on above: Performed By: #### 1 9123-9, CMP, CBCA, 29593-5 #### [facility] ([id number]) [address], [address] [place] [address] ALP [Catalytic activity/Vol] 99 U/L Normal 39-130 [facility] Comment on above: Performed By: #### 1 9123-9, CMP, CBCA, 70631-1 #### [facility] ([id number]) [address], [address] [place] [address] ALT [Catalytic activity/Vol] 11 U/L Normal 0-40 [facility] Comment on above: Performed By: #### 1 9123-9, CMP, CBCA, 26199-4 #### [facility] ([id number]) [address], [address] [place] [address] Anion gap [Moles/Vol] 6 mmol/L Normal 5-15 [facility] Comment on above: Performed By: #### 1 9123-9, CMP, CBCA, 73526-9 #### [facility] ([id number]) [address], [address] [place] [address] AST [Catalytic activity/Vol] 12 U/L Normal 0-41 [facility] Comment on above: Performed By: #### 1 9123-9, CMP, CBCA, 12615-6 #### [facility] ([id number]) [address], [address] [place] [address] Bilirubin [Mass/Vol] 0.8 mg/dL Normal 0.3-1.2 [facility] Comment on above: Performed By: #### 1 9123-9, CMP, CBCA, 95076-1 #### [facility] ([id number]) [address], [address] [place] [address] Calcium [Mass/Vol] 9.1 mg/dL Normal 8.5-10.5 [facility] Comment on above: Performed By: #### 1 9123-9, CMP, CBCA, 74442-4 #### [facility] ([id number]) [address], [address] [place] [address] Chloride [Moles/Vol] 105 mmol/L Normal 98-109 [facility] Comment on above: Performed By: #### 1 9123-9, CMP, CBCA, 95047-9 #### [facility] ([id number]) [address], [address] [place] [address] CO2 [Moles/Vol] 30 mmol/L Normal 22-32 [facility] Comment on above: Performed By: #### 1 9123-9, CMP, CBCA, 15988-2 #### [facility] ([id number]) [address], [address] [place] [address] Creatinine [Mass/Vol] 1.25 mg/dL Normal 0.60-1.30 [facility] Comment on above: Result Comment: METH OD TRACEABLE TO IDMS STANDARD Performed By: #### 1 9123-9, CMP, CBCA, 89829-8 #### [facility] ([id number]) [address], [address] [place] [address] GFR/1.73 sq M.predicted among non-blacks MDRD (S/P/Bld) [Vol rate/Area] 59 mL/min/{1.73_m2} Low >59 [facility] Comment on above: Result Comment: Reported eGFR is based on the CKD-EPI 2020 equation that does not use a race coefficient. Performed By: #### 1 9123-9, CMP, CBCA, 38512-4 #### [facility] ([id number]) [address], [address] [place] [address] Glucose [Mass/Vol] 89 mg/dL Normal 65-99 [facility] Comment on above: Performed By: #### 1 9123-9, CMP, CBCA, 84879-3 #### [facility] ([id number]) [address], [address] [place] [address] Potassium [Moles/Vol] 4.4 mmol/L Normal 3.5-5.0 [facility] Comment on above: Performed By: #### 1 9123-9, CMP, CBCA, 81451-1 #### [facility] ([id number]) [address], [address] [place] [address] Protein [Mass/Vol] 7.0 g/dL Normal 6.0-8.0 [facility] Comment on above: Performed By: #### 1 9123-9, CMP, CBCA, 63085-4 #### [facility] ([id number]) [address], [address] [place] [address] Sodium [Moles/Vol] 141 mmol/L Normal 134-146 [facility] Comment on above: Performed By: #### 1 9123-9, CMP, CBCA, 47619-5 #### [facility] ([id number]) [address], [address] [place] [address] Urea nitrogen [Mass/Vol] 23 mg/dL Normal 5-27 [facility] Comment on above: Performed By: #### 1 9123-9, CMP, CBCA, 50616-8 #### [facility] ([id number]) [address], [address] [place] [address] Lipid 1996 panelon 4 Cholesterol [Mass/Vol] 137 mg/dL Low 150-200 [facility] Comment on above: Performed By: #### 1 9123-9, CMP, CBCA, 30426-0 #### [facility] ([id number]) [address], [address] [place] [address] Cholesterol in HDL [Mass/Vol] 44 mg/dL Normal >39 [facility] Comment on above: Result Comment: HDL <40 mg/dL - High Risk HDL > or = 40mg/dL- Desirable HDL >60 mg/dL - Negative Risk Performed By: #### 1 9123-9, CMP, CBCA, 85436-4 #### [facility] ([id number]) [address], [address] [place] [address] Cholesterol in LDL [Mass/Vol] 62 mg/dL Normal <130 [facility] Comment on above: Result Comment: LDL <100 mg/dL - Desirable LDL >160 mg/dL - High Risk Performed By: #### 1 9123-9, CMP, CBCA, 89881-7 #### [facility] ([id number]) [address], [address] [place] [address] Cholesterol in VLDL [Mass/Vol] 31 mg/dL High 0-30 [facility] Comment on above: Performed By: #### 1 9123-9, CMP, CBCA, 58358-6 #### [facility] ([id number]) [address], [address] [place] [address] CHOLESTEROL:HDL 3.1 Normal 1.0-5.0 [facility] Comment on above: Performed By: #### 1 9123-9, CMP, CBCA, 26889-5 #### [facility] ([id number]) [address], [address] [place] [address] Triglyceride [Mass/Vol] 153 mg/dL High 27-150 [facility] Comment on above: Performed By: #### 1 9123-9, CMP, CBCA, 81899-5 #### [facility] ([id number]) [address], [address] [place] [address] MAGNESIUMon 09-23-2023 Magnesium [Mass/Vol] 2.3 mg/dL Normal 1.8-2.6 [facility] Comment on above: Performed By: #### 1 9123-9, CMP, CBCA, 61905-8 #### [facility] ([id number]) [address] [place] [address] Vital Signs Date Time Vital Sign Value Performing Clinician Faci lity 10-19-2024 09:11-0400 Body height 185.4 cm Odell Benjie DO Work Phone: [facility] 10-19-2024 09:11-0400 Body mass index (BMI) [Ratio] 26.78 kg/m2 Odell Benjie DO Work Phone: [facility] 10-19-2024 09:11-0400 Body weight 92.08 kg Odell Benjie DO Work Phone: [facility] 10-19-2024 09:11-0400 Diastolic blood pressure 74 mm[Hg] Odell Benjie DO Work Phone: [facility] 10-19-2024 09:11-0400 Heart rate 92 /min Odell Benjie DO Work Phone: [facility] 10-19-2024 09:11-0400 Systolic blood pressure 140 mm[Hg] Odell Benjie DO Work Phone: [facility] 10-01-2024 09:10-0500 Body mass index (BMI) [Ratio] 25.99 kg/m2 Christopher Caty DO Work Phone: [facility] 10-01-2024 09:10-0500 Body weight 91.81 kg Christopher Caty DO Work Phone: [facility] 10-01-2024 09:10-0500 Diastolic blood pressure 72 mm[Hg] Christopher Caty DO Work Phone: [facility] 10-01-2024 09:10-0500 Heart rate 67 /min Sawmelissa Byrne DO Work Phone: [facility] 10-01-2024 09:10-0500 SaO2% (BldA) [Mass fraction] 96 % Christmelissa Byrne DO Work Phone: [facility] 10-01-2024 09:10-0500 Systolic blood pressure 118 mm[Hg] David Byrne DO Work Phone: [facility] 09-18-2024 11:52-0500 Body mass index (BMI) [Ratio] 25.68 kg/m2 Shikha Rowell MD Work Phone: [facility] 09-18-2024 11:52-0500 Body weight 90.72 kg Shikha Rowell MD Work Phone: [facility] 09-18-2024 11:52-0500 Heart rate 62 /min Shikha Rowell MD Work Phone: [facility] 09-18-2024 11:52-0500 Respiratory rate 16 /min Shikha Rowell MD Work Phone: [facility] 09-18-2024 11:52-0500 SaO2% (BldA) [Mass fraction] 96 % Shikha Rowell MD Work Phone: [facility] 09-11-2024 13:33-0500 Blood Pressure Location Medinagirish BUTLER [facility] 09-11-2024 13:33-0500 Diastolic blood pressure 90 mm[Hg] Medina BUTLER [facility] 09-11-2024 13:33-0500 Heart rate 68 /min Medina BUTLER [facility] 09-11-2024 13:33-0500 Respiratory rate 16 /min Medina BUTLER [facility] 09-11-2024 13:33-0500 Systolic blood pressure 150 mm[Hg] Medina BUTLER [facility] 09-10-2024 11:17-0500 Blood Pressure Location Medina BUTLER [facility] 09-10-2024 11:17-0500 Body temperature 98.6 [degF] Medina BUTLER [facility] 09-10-2024 11:17-0500 Diastolic blood pressure 78 mm[Hg] Medina BUTLER [facility] 09-10-2024 11:17-0500 Heart rate 61 /min Medina BUTLER [facility] 09-10-2024 11:17-0500 Respiratory rate 18 /min Medina BUTLER [facility] 09-10-2024 11:17-0500 Systolic blood pressure 139 mm[Hg] Medina BUTLER [facility] 09-06-2024 09:20-0500 Body height 188 cm Shikha Rowell MD Work Phone: [facility] 09-06-2024 09:20-0500 Body mass index (BMI) [Ratio] 25.16 kg/m2 Shikha Rowell MD Work Phone: [facility] 09-06-2024 09:20-0500 Body weight 88.91 kg Shikha Rowell MD Work Phone: [facility] 09-06-2024 09:20-0500 Heart rate 74 /min Shikha Rowell MD Work Phone: [facility] 09-06-2024 09:20-0500 Respiratory rate 16 /min Shikha Rowell MD Work Phone: [facility] 09-06-2024 09:20-0500 SaO2% (BldA) [Mass fraction] 93 % Shikha Rowell MD Work Phone: [facility] 08-17-2024 10:05-0500 Body height 185.4 cm Mary Grace Rashid MD Work Phone: [facility] 08-17-2024 10:05-0500 Body mass index (BMI) [Ratio] 25.6 kg/m2 Mary Grace Rashid MD Work Phone: [facility] 08-17-2024 10:05-0500 Body weight 88 kg Mary Grace Rashid MD Work Phone: [facility] 08-17-2024 10:05-0500 Diastolic blood pressure 76 mm[Hg] Mary Grace Rashid MD Work Phone: [facility] 08-17-2024 10:05-0500 Heart rate 81 /min Mary Grace Rashid MD Work Phone: [facility] 08-17-2024 10:05-0500 Respiratory rate 18 /min Mary Grace Rashid MD Work Phone: [facility] 08-17-2024 10:05-0500 SaO2% (BldA) [Mass fraction] 97 % Mary Grace Rashid MD Work Phone: [facility] 08-17-2024 10:05-0500 Systolic blood pressure 128 mm[Hg] Mary Grace Rashid MD Work Phone: [facility] 11-16-2023 08:42-0400 Body height 185.4 cm Emiliano Alaniz MD Work Phone: [facility] 11-16-2023 08:42-0400 Body mass index (BMI) [Ratio] 26.39 kg/m2 Emiliano Alaniz MD Work Phone: [facility] 11-16-2023 08:42-0400 Body weight 90.72 kg Emiliano Alaniz MD Work Phone: [facility] 11-16-2023 08:42-0400 Diastolic blood pressure 80 mm[Hg] Emiliano Alaniz MD Work Phone: [facility] 11-16-2023 08:42-0400 Heart rate 84 /min Emiliano Alaniz MD Work Phone: [facility] 11-16-2023 08:42-0400 SaO2% (BldA) [Mass fraction] 96 % Emiliano Alaniz MD Work Phone: [facility] 11-16-2023 08:42-0400 Systolic blood pressure 126 mm[Hg] Emiliano Alaniz MD Work Phone: [facility] 10-06-2023 10:47-0500 Body height 185.4 cm Pmh 1 [facility] 10-06-2023 10:47-0500 Body mass index (BMI) [Ratio] 25.73 kg/m2 Pmh 1 [facility] 10-06-2023 10:47-0500 Body weight 88.45 kg Pmh 1 [facility] 09-06-2023 09:19-0500 Body mass index (BMI) [Ratio] 26.36 kg/m2 Janel Chao HEAD DOFFER-ADMINISTRATIVE ASSOCIATE Work Phone: [facility] 09-06-2023 09:19-0500 Body weight 90.63 kg Janelelisa Chao HEAD DOFFER-ADMINISTRATIVE ASSOCIATE Work Phone: [facility] 09-06-2023 09:19-0500 Diastolic blood pressure 80 mm[Hg] Janel Chao HEAD DOFFER-ADMINISTRATIVE ASSOCIATE Work Phone: [facility] 09-06-2023 09:19-0500 Systolic blood pressure 130 mm[Hg] Janel Chao HEAD DOFFER-ADMINISTRATIVE ASSOCIATE Work Phone: [facility] Encounters Encounter Date Encounter Type Care Provider Facility Start: 11-16-2024 ambulatory Medina Lunai ty:[facility] Start: 11-05-2024 ambulatory Medina Robledo ty:[facility] Start: 11-01-2024 ambulatory Medina Lunai ty:[id number] Start: 10-22-2024 End: 10-22-2024 ambulatory CORNELIO ISSA Not Available Start: 10-19-2024 End: 10-19-2024 Office outpatient new 45 minutes Odell Rojas DO Work Phone: [facility] Comment on above: Longstanding persist ent atrial fibrillation (CMS-HCC) (Primary Dx); Pre-op evaluation Start: 10-19-2024 End: 10-19-2024 Preprocedural examination done Odell Rojas DO Work Phone: [facility] Start: 10-19-2024 Encounter for other preprocedural examination [facility] Start: 10-19-2024 End: 10-19-2024 ambulatory [facility] Start: 10-18-2024 End: 10-18-2024 Telephone encounter Avril Porter MA [facility] Start: 10-17-2024 End: 10-17-2024 Clinisync Result Encounter Generic External Data Provider [facility] External Department Unsolicited Start: 10-17-2024 End: 10-17-2024 Clinisync Result Encounter Generic External Data Provider [facility] External Department Unsolicited Start: 10-09-2024 End: 10-09-2024 Telephone encounter Shikha Rowell MD Work Phone: [facility] Comment on above: Medication Problem Start: 10-05-2024 End: 10-05-2024 ambulatory SHIKHA ROWELL Not Available Start: 10-01-2024 End: 10-01-2024 Bamboo flowsheet Christopher Caty DO Work Phone: [facility] Start: 10-01-2024 End: 10-01-2024 Bamboo flowsheet Christopher Caty DO Work Phone: [facility] Start: 10-01-2024 End: 10-01-2024 Office outpatient new 45 minutes David Byrne DO Work Phone: [facility] Comment on above: Moderate late onset Alzheimer's dementia, unspecified whether behavioral, psychotic, or mood disturbance or anxiety (CMS/HCC) (Primary Dx); Memory changes Start: 10-01-2024 End: 10-01-2024 ambulatory DAVID BYRNE Not Available Start: 09-18-2024 End: 09-18-2024 Pepeboo dylon Rowell MD Work Phone: [facility] Start: 09-18-2024 End: 09-18-2024 Clement Rowell MD Work Phone: [facility] Start: 09-18-2024 End: 09-18-2024 Office outpatient visit 25 minutes Shikha Rowell MD Work Phone: [facility] Comment on above: Hyperthyroidism (CMS /HCC) (Primary Dx); Multinodular goiter (CMS/HCC); Chronic atrial fibrillation (HCC) (CMS/HCC) Start: 09-18-2024 End: 09-18-2024 ambulatory SHIKHA ROWELL Not Available Start: 09-11-2024 End: 09-11-2024 ambulatory Medina BUTLER Facility:[facility] Start: 09-11-2024 End: 09-11-2024 Patient encounter procedure Medina BUTLER [facility] Start: 09-10-2024 End: 09-10-2024 ambulatory Medina BUTLER Facility:[facility] Start: 09-10-2024 End: 09-10-2024 Patient encounter procedure [facility] Start: 09-06-2024 End: 09-06-2024 Clement Rowell MD Work Phone: [facility] Start: 09-06-2024 End: 09-06-2024 Clement Rowell MD Work Phone: [facility] Start: 09-06-2024 End: 09-06-2024 Office outpatient new 60 minutes Shikha Rowell MD Work Phone: [facility] Comment on above: Multinodular goiter (CMS/HCC) (Primary Dx); Hyperthyroidism (CMS/HCC); Chronic atrial fibrillation (HCC) (CMS/HCC) Start: 09-06-2024 End: 09-06-2024 ambulatory SHIKHA ROWELL Not Available Start: 08-24-2024 End: 08-24-2024 ambulatory MARY GRACE RASHID Not Available Start: 08-20-2024 ambulatory Medina BUTLER Facility :[facility] Start: 08-19-2024 End: 08-19-2024 Orders Only Mary Grace Rashid MD Work Phone: [facility] Comment on above: Hyperthyroidism (CMS /HCC) (Primary Dx) Start: 08-17-2024 End: 08-17-2024 Bamboo flowsheet Mary Grace Rashid MD Work Phone: [facility] Start: 08-17-2024 End: 08-17-2024 Bamboo flowsheet Mary Grace Rashid MD Work Phone: [facility] Start: 08-17-2024 End: 08-17-2024 Patient encounter procedure Mary Grace Rashid MD Work Phone: [facility] Comment on above: Routine general medi ann examination at a health care facility (Primary Dx); Longstanding persistent atrial fibrillation (CMS/HCC); Mixed hyperlipidemia (CMS/HCC); Meniere's disease of right ear; Benign prostatic hyperplasia, unspecified whether lower urinary tract symptoms present; Enlarged prostate; Adenomatous polyp of transverse colon; Memory changes; Unspecified atrial fibrillation (CMS/HCC) Start: 08-17-2024 End: 08-17-2024 Patient encounter status Mary Grace Rashid MD Work Phone: [facility] Start: 08-17-2024 End: 08-17-2024 ambulatory MARY GRACE RASHID Not Available Start: 07-31-2024 End: 07-31-2024 Refill Mary Grace Rashid MD Work Phone: [facility] Comment on above: Mixed hyperlipidemia (CMS/HCC) Start: 04-12-2024 End: 04-12-2024 Refill Mary Grace Rashid MD Work Phone: [facility] Comment on above: Enlarged prostate Start: 12-12-2023 End: 12-12-2023 Refill Keli Hines RN [facility] Comment on above: Med Refill Start: 11-16-2023 End: 11-16-2023 ambulatory EMILIANO ALANIZ [facility] Start: 11-16-2023 End: 11-16-2023 Office outpatient visit 15 minutes Emiliano Alaniz MD Work Phone: [facility] Comment on above: Paroxysmal atrial fi brillation ([facility]-HCC) (Primary Dx) Start: 10-24-2023 Telephone encounter Suly Pringle CMA [facility] Start: 10-20-2023 Telephone encounter Keli Hines RN [facility] Comment on above: Holding eliquis Start: 10-15-2023 End: 10-15-2023 Evaluation and management of inpatient HERMELINDA GALAN [facility] Start: 10-14-2023 End: 10-15-2023 Evaluation and management of inpatient JAVIER ZAMAN [facility] Start: 10-06-2023 End: 10-06-2023 ambulatory [facility] Phone Call Provider 1 [facility] - Pre Admit Start: 10-06-2023 End: 10-06-2023 ambulatory MARY GRACE Powell RACHID [facility] Start: 09-23-2023 End: 09-24-2023 ambulatory MEGAN LINO [facility] Start: 09-22-2023 Refill Esther Matos HEAD DOFFER-ADMINISTRATIVE ASSOCIATE Work Phone: [facility] Comment on above: Med Refill Start: 09-06-2023 End: 09-06-2023 Office outpatient new 30 minutes Janel Chao HEAD DOFFER-ADMINISTRATIVE ASSOCIATE Work Phone: [facility] Comment on above: History of colon stephan yps (Primary Dx); Family history of malignant neoplasm of colon; Hematochezia Start: 08-18-2023 Telephone encounter Janel Chao HEAD DOFFER-ADMINISTRATIVE ASSOCIATE Work Phone: [facility] Procedures Date Procedure Procedure Detail Performing Clinician Start: 10-17-2024 XR CHEST 2V Generic Ex ternal Data Provider Start: 10-17-2024 ALL BASIC METABOLIC PANEL Generic External Data Provider Start: 10-17-2024 ECG 12-LEAD Generic Ex ternal Data Provider Start: 09-11-2024 Cystoscopy Medina BARKLEY Start: 11-16-2023 Ecg routine ecg w/le ast 12 lds w/i&r Emiliano Alaniz MD Work Phone: Start: 11-16-2023 Follow-up visit Follow-up EMILIANO ALANIZ Start: 10-14-2023 Colonoscopy Keli allen RN Start: 08-31-2019 Colonoscopy Janel henry HEAD DOFFER-OMG Work Phone: Appendectomy Medina BUTLER Bilateral cataracts (disorder) Medina BUTLER Cholecystectomy Medina BUCKNER Colonoscopy Medina BUTLER Tonsillectomy Medina BUTLER Plan of Treatment Date Care Activity Detail Author Start: 10-13-2026 Screening for malignant neoplasm of colon Colonoscopy [facility] Start: 08-17-2025 Medicare Annual Wellness (AWV) Medicare Annual Wellness (AWV) [facility] Start: 04-22-2025 End: 04-22-2025 Patient encounter procedure 04/22/2025 9:00 AM EDT Office Visit [facility] [address] [place] [address] Savana Marrufo PA-C [address] [place] [address] [facility] Start: 02-12-2025 End: 02-12-2025 Patient encounter procedure 02/12/2025 10:20 AM EDT Office Visit [facility] [address] [place] [phone] Mary Grace Rashid MD [address] [facility] [place], [place] [id number] [facility] Start: 11-21-2024 End: 11-21-2024 Patient encounter procedure 11/21/2024 11:30 AM EDT Office Visit [facility] [address] [place] [address] Shikha Rowell MD [address] [place] [address] [facility] Start: 11-15-2024 Adult BMI Screening Adult BMI Screening [facility] Start: 11-15-2024 Tobacco Screening Tobacco Screening [facility] Start: 11-07-2024 End: 11-07-2024 Patient encounter procedure 11/07/2024 9:45 AM EDT Office Visit [facility] [address] [facility] [address] [place] [address] Emiliano Alaniz MD [address] [place] [address] [facility] Start: 10-22-2024 End: 10-22-2024 Patient encounter procedure 10/22/2024 2:00 PM EDT Office Visit [facility] [address] [facility] [address] [place] [phone] Cornelio Issa, PhD [address] [place] [address] [facility] Start: 10-19-2024 End: 10-19-2024 Patient encounter procedure 10/19/2024 9:45 AM EDT Office Visit [facility] [address] [place] [phone] Odell Rojas, DO [address] [place] [address], [address] [place] [address] [facility] Start: 10-13-2024 Adult BMI Screening Adult BMI Screening [facility] Start: 10-13-2024 Screening for malignant neoplasm of colon Colonoscopy [facility] Start: 10-09-2024 End: 10-09-2024 Patient encounter procedure 10/09/2024 10:00 AM EST Office Visit [facility] [address] [address] [place] [address] Cornelio Issa, PhD [address] [place] [address] [facility] Start: 10-05-2024 Adult BMI Screening Adult BMI Screening [facility] Start: 10-05-2024 Tobacco Screening Tobacco Screening [facility] Start: 10-01-2024 End: 10-01-2024 Patient encounter procedure [facility] Comment on above: Memory changes Start: 09-18-2024 End: 09-18-2025 Thyrotropin [Units/volume] in Serum or Plasma TSH Lab Routine Hyperthyroidism (CMS/HCC) Expected: 09/18/2024 (Approximate), Expires: 09/18/2025 [facility] Comment on above: Expected: 09/18/2024 (Approximate), Expi res: 09/18/2025 Start: 09-18-2024 End: 09-18-2025 Thyroxine (T4) free [Mass/volume] in Serum or Plasma T4, free Lab Routine Hyperthyroidism (CMS/HCC) Expected: 09/18/2024 (Approximate), Expires: 09/18/2025 [facility] Comment on above: Expected: 09/18/2024 (Approximate), Expi res: 09/18/2025 Start: 09-18-2024 End: 09-18-2025 Triiodothyronine (T3) Free [Mass/volume] in Serum or Plasma T3, free Lab Routine Hyperthyroidism (CMS/HCC) Expected: 09/18/2024 (Approximate), Expires: 09/18/2025 [facility] Work Phone: Comment on above: Expected: 09/18/2024 (Approximate), Expi res: 09/18/2025 Start: 09-18-2024 End: 09-18-2024 Patient encounter procedure [facility] Comment on above: Arrived Start: 09-06-2024 Adult BMI Screening Adult BMI Screening [facility] Start: 09-06-2024 End: 09-06-2025 Thyroglobulin Antibody Thyroglobulin Antibody Lab Routine Hyperthyroidism (CMS/HCC) Expected: 09/06/2024 (Approximate), Expires: 09/06/2025 [facility] Work Phone: Comment on above: Expected: 09/06/2024 (Approximate), Expi res: 09/06/2025 Start: 09-06-2024 End: 09-06-2025 Thyroid peroxidase antibody Thyroid peroxidase antibody Lab Routine Hyperthyroidism (CMS/HCC) Expected: 09/06/2024 (Approximate), Expires: 09/06/2025 [facility] Comment on above: Expected: 09/06/2024 (Approximate), Expi res: 09/06/2025 Start: 09-06-2024 End: 09-06-2025 Thyrotropin [Units/volume] in Serum or Plasma TSH Lab Routine Hyperthyroidism (CMS/HCC) Expected: 09/06/2024 (Approximate), Expires: 09/06/2025 [facility] Comment on above: Expected: 09/06/2024 (Approximate), Expi res: 09/06/2025 Start: 09-06-2024 End: 09-06-2025 Thyrotropin receptor antibody Thyrotropin receptor antibody Lab Routine Hyperthyroidism (CMS/HCC) Expected: 09/06/2024 (Approximate), Expires: 09/06/2025 [facility] Comment on above: Expected: 09/06/2024 (Approximate), Expi res: 09/06/2025 Start: 09-06-2024 End: 09-06-2025 Thyroxine (T4) free [Mass/volume] in Serum or Plasma T4, free Lab Routine Hyperthyroidism (CMS/HCC) Expected: 09/06/2024 (Approximate), Expires: 09/06/2025 [facility] Comment on above: Expected: 09/06/2024 (Approximate), Expi res: 09/06/2025 Start: 09-06-2024 Tobacco Screening Tobacco Screening [facility] Start: 09-06-2024 End: 09-06-2025 Triiodothyronine (T3) Free [Mass/volume] in Serum or Plasma T3, free Lab Routine Hyperthyroidism (CMS/HCC) Expected: 09/06/2024 (Approximate), Expires: 09/06/2025 [facility] Comment on above: Expected: 09/06/2024 (Approximate), Expi res: 09/06/2025 Start: 09-06-2024 End: 09-06-2024 Patient encounter procedure 09/06/2024 9:20 AM EST Office Visit [facility] [address] [place] [phone] Shikha Rowell MD [address] [place] [address] Hyperthyroidism (CMS/HCC) [facility] Comment on above: Hyperthyroidism (CMS/HCC) Start: 08-19-2024 End: 08-19-2025 US Thyroid gland US thyroid Imaging Routine Hyperthyroidism (CMS/HCC) Expected: 08/19/2024, Expires: 08/19/2025 [facility] Work Phone: Comment on above: Expected: 08/19/2024, Expires: Start: 08-17-2024 End: 08-17-2025 CBC W Auto Differential panel - Blood CBC and differential Lab Routine Mixed hyperlipidemia (CMS/HCC) Expected: 08/17/2024 (Approximate), Expires: 08/17/2025 [facility] Comment on above: Expected: 08/17/2024 (Approximate), Expi res: 08/17/2025 Start: 08-17-2024 End: 08-17-2025 Cobalamin (Vitamin B12) [Mass/volume] in Serum or Plasma Vitamin B12 Lab Routine Memory changes Expected: 08/17/2024 (Approximate), Expires: 08/17/2025 [facility] Comment on above: Expected: 08/17/2024 (Approximate), Expi res: 08/17/2025 Start: 08-17-2024 End: 08-17-2025 Comprehensive metabolic 2000 panel - Serum or Plasma Comprehensive metabolic panel Lab Routine Mixed hyperlipidemia (CMS/HCC) Expected: 08/17/2024, Expires: 08/17/2025 [facility] Work Phone: Comment on above: Expected: 08/17/2024, Expires: Start: 08-17-2024 End: 08-17-2025 Lipid 1996 panel - Serum or Plasma Lipid panel Lab Routine Mixed hyperlipidemia (CMS/HCC) Expected: 08/17/2024 (Approximate), Expires: 08/17/2025 [facility] Comment on above: Expected: 08/17/2024 (Approximate), Expi res: 08/17/2025 Start: 08-17-2024 End: 08-17-2025 Prostate specific Ag [Mass/volume] in Serum or Plasma PSA Lab Routine Benign prostatic hyperplasia, unspecified whether lower urinary tract symptoms present Expected: 08/17/2024 (Approximate), Expires: 08/17/2025 [facility] Comment on above: Expected: 08/17/2024 (Approximate), Expi res: 08/17/2025 Start: 08-17-2024 End: 08-17-2025 TSH W/REFLEX TO FT4 TSH W/REFLEX TO FT4 Lab Routine Memory changes Expected: 08/17/2024 (Approximate), Expires: 08/17/2025 [facility] Comment on above: Expected: 08/17/2024 (Approximate), Expi res: 08/17/2025 Start: 08-17-2024 End: 08-17-2024 Patient encounter procedure [facility] Comment on above: Arrived Start: 08-16-2024 Medicare Annual Wellness (AWV) Medicare Annual Wellness (AWV) [facility] Start: 04-08-2024 COVID-19 Vaccine ( season) COVID-19 Vaccine ( season) [facility] [employer] [facility] Start: 04-08-2024 Influenza vaccination [facility] Start: 11-18-2023 Adult BMI Screening Adult BMI Screening [facility] Start: 11-18-2023 Tobacco Screening Tobacco Screening [facility] Start: 11-16-2023 End: 11-16-2023 Patient encounter procedure 11/16/2023 8:45 AM EDT Office Visit [facility] [address] [phone] Emiliano Alaniz MD [address] [place] [address] [facility] Start: 10-14-2023 End: 10-14-2023 Admission to same day surgery center 10/14/2023 10:00 AM EST - 10/14/2023 10:40 AM EST Surgery [facility] [address] [place] [phone] Javier Zaman MD [address] [place] [address] COLONOSCOPY DIAGNOSTIC / SCREENING [88833 (CPT )] [facility] Comment on above: COLONOSCOPY DIAGNOSTIC / SCREENING [4537 8 (CPT )] Start: 10-14-2023 End: 10-14-2023 Colonoscopy flx dx w/collj spec when pfrmd COLONOSCOPY DIAGNOSTIC / SCREENING history of colon polyps 10/14/2023 10:00 AM [facility] Start: 10-14-2023 Subsequent hospital visit by physician 10/14/2023 10:00 AM EST Hospital Encounter [facility] [address] [place] [phone] Javier Zaman MD [address] [place] [address] [facility] Start: 10-06-2023 End: 10-06-2023 ambulatory 10/06/2023 3:30 PM EST Support Visit [facility] - Pre Admit [address] [place] [address] [facility] Start: 09-06-2023 End: 09-06-2023 Patient encounter procedure 09/06/2023 9:30 AM EST Office Visit [facility] [address] [place] [phone] Janel Chao, HEAD DOFFER-ADMINISTRATIVE ASSOCIATE [address] [place] [address] [facility] General Surgery Start: 04-08-2023 COVID-19 Vaccine () COVID-19 Vaccine () [facility] Start: 08-31-2022 Screening for malignant neoplasm of colon Colonoscopy [facility] Start: 05-11-2020 DTaP,Tdap and Td Vaccines (4 - Td or Tdap) DTaP,Tdap and Td Vaccines (4 - Td or Tdap) [facility] Start: 2010 Abdominal aortic aneurysm screening Abdominal Aortic Aneurysm (AAA) Screen [facility] Start: 2010 Fall Risk Screening Fall Risk Screening [facility] Start: 1963 Adult BMI Follow Up Plan Adult BMI Follow Up Plan [facility] Start: 1957 Depression Screening Depression Screening [facility] Start: 1945 Medicare Annual Wellness Visit Medicare Annual Wellness Visit [facility] End: 09-05-2024 Colonoscopy Colonoscopy GI Routine History of colon polyps Family history of malignant neoplasm of colon 1 Occurrences starting 09/06/2023 until 09/05/2024 [facility] Work Phone: Comment on above: 1 Occurrences starting 09/06/2023 until 09/05/2024 Immunizations Immunization Date Immunization Notes Care Provider Fa cili 06-15-2024 influenza virus vacc ine, unspecified formulation Medina BUTLER [facility] 05-05-2023 Influenza, High-dose Seasonal, Quadrivalent, Preservative Free Mary Grace Rashid MD Work Phone: [facility] 05-05-2023 influenza virus vacc ine, unspecified formulation Emiliano Alaniz MD Work Phone: [facility] 04-04-2023 zoster vaccine recombinant Mary Grace Rashid MD Work Phone: [facility] 02-01-2023 zoster vaccine recombinant Mary Grace Rashid MD Work Phone: [facility] Work Phone: 05-17-2022 influenza virus vacc ine, unspecified formulation Medina BUTLER [facility] 05-17-2022 Influenza, High-dose Seasonal, Quadrivalent, Preservative Free Mary Grace Rashid MD Work Phone: [facility] 08-12-2021 SARS-CoV-2 (COVID-19 ) [id number] vaccine Medina Skinkers [facility] 06-23-2021 influenza virus vacc ine, unspecified formulation Medina BUTLER [facility] 06-23-2021 Influenza, High-dose Seasonal, Quadrivalent, Preservative Free Mary Grace Rashid MD Work Phone: [facility] 10-09-2020 COVID-19, mRNA, LNP- S, PF, 100mcg/0.5mL Dose Janel Chao HEAD DOFFER-ADMINISTRATIVE ASSOCIATE Work Phone: [facility] Comment on above: Result Comment: 2024: [id number] 09-11-2020 COVID-19, mRNA, LNP- S, PF, 100mcg/0.5mL Dose Janel Chao HEAD DOFFER-ADMINISTRATIVE ASSOCIATE Work Phone: [facility] Comment on above: Result Comment: 2024: [id number] 06-17-2020 influenza virus vacc ine, unspecified formulation Medina BUTLER [facility] 06-17-2020 Influenza, High-dose Seasonal, Quadrivalent, Preservative Free Mary Grace Rashid MD Work Phone: [facility] 06-14-2019 influenza virus vacc ine, unspecified formulation Medina BUTLER [facility] 06-14-2019 Influenza, High-dose Seasonal, Quadrivalent, Preservative Free Mary Grace Rashid MD Work Phone: [facility] 05-15-2018 influenza virus vacc ine, unspecified formulation Medina BUTLER [facility] 05-15-2018 influenza, high dose seasonal, preservative-free Mary Grace Rashid MD Work Phone: [facility] 04-27-2017 influenza virus vacc ine, unspecified formulation Medinagirish BUTLER [facility] 04-27-2017 Influenza, High-dose Seasonal, Quadrivalent, Preservative Free Mary Grace Rashid MD Work Phone: [facility] 04-22-2016 influenza virus vacc ine, unspecified formulation Medinagirish BUTLER [facility] 04-22-2016 influenza, high dose seasonal, preservative-free Mary Grace Rashid MD Work Phone: [facility] 04-21-2015 influenza virus vacc ine, unspecified formulation Medinagirish BUTLER [facility] 04-21-2015 influenza, seasonal, injectable, preservative free Mary Grace Rashid MD Work Phone: [facility] 04-21-2015 pneumococcal conjuga te vaccine, 13 valent Mary Grace Rashid MD Work Phone: [facility] 05-03-2014 influenza, high dose seasonal, preservative-free Mary Grace Rashid MD Work Phone: [facility] 03-04-2014 pneumococcal polysaccharide vaccine, 23 valent Mary Grcae Rashid MD Work Phone: [facility] 04-30-2013 influenza virus vacc ine, unspecified formulation Medina BUTLER [facility] 11-25-2012 varicella virus vaccine Mary Grace Rashid MD Work Phone: [facility] 09-08-2012 zoster vaccine, live Mary Grace oswald MD Work Phone: [facility] 05-03-2012 influenza virus vacc ine, unspecified formulation Medina BUTLER [facility] 05-03-2012 seasonal influenza, intradermal, preservative free Mary Grace Rashid MD Work Phone: [facility] 05-27-2011 influenza virus vacc ine, unspecified formulation Medina BUTLER [facility] 05-11-2010 diphtheria, tetanus toxoids and pertussis vaccine Mary Grace Rashid MD Work Phone: [facility] 05-11-2010 pneumococcal vaccine , unspecified formulation Mary Grace Rashid MD Work Phone: [facility] 05-11-2010 tetanus and diphther ia toxoids, adsorbed, preservative free, for adult use (5 Lf of tetanus toxoid and 2 Lf of diphtheria toxoid) Mary Grace Rashid MD Work Phone: [facility] 05-11-2010 tetanus toxoid, redu brisa diphtheria toxoid, and acellular pertussis vaccine, adsorbed Mary Grace Rashid MD Work Phone: [facility] 05-04-2010 influenza, whole Medina RUIZ [facility] Payers Date Payer Category Payer [facility] er [id number] 2016 [employer]ity [employer]THE[employer] [id number] 2016 Unknown [id number] 2016 Unknown [id number] 2010 Medicare [id number] 2010 Medicare [id number] 1945 Unknown [id number] 2.840.1.018729.3.579. 2.1285 1945 Unknown [id number] 2.840.1.765308.3.579. 2.1285 1945 Unknown [id number] 2.840.1.412051.3.579. 2.1285 1945 Unknown [id number] 2.16840.1.911030.3.579. 2.1285 1945 Unknown [id number] 2.16840.1.802472.3.579. 2.1285 1945 Unknown [id number] 2.16.840.1.684406.3.579. 2.1286 1945 Unknown [id number] 2.16.840.1.383740.3.579. 2.128 1945 Unknown [id number] 2.16.840.1.124509.3.579. 2.128 1945 Unknown [id number] 2.16.840.1.301651.3.579. 2.72 1945 Unknown [id number] 2.16.840.1.794119.3.579. 2.72 1945 Unknown [id number] 2.840.1.601094.3.579. 2. 1945 Unknown [id number] 2..840.1.260005.3.579. 2. 1945 Unknown [id number] 2.840.1.909799.3.579. 2. 1945 Unknown [id number] 2.840.1.680035.3.579. 2.128 1945 Unknown [id number] 2.840.1.570601.3.579. 2.1258 1945 Unknown [id number] 2.840.1.909355.3.579. 2.1258 1945 Unknown [id number] 2.840.1.801745.3.579. 2.1258 1945 Unknown [id number] 2.16.840.1.558768.3.579. 2.125 1945 Unknown [id number] 2.16.840.1.591372.3.579. 2.125 1945 Unknown [id number] 2.16.840.1.242556.3.579. 2.125 1945 Unknown [id number] 2.16.840.1.915008.3.579. 2.1259 Social History Date Type Detail Facility Start: 01-25-2023 End: 11-16-2023 Tobacco smoking status NHIS Ex-smoker [facility] Start: 08-08-1978 End: 08-08-1998 History of tobacco use Current smoker [facility] Start: 08-08-1978 End: 08-08-1998 History of tobacco use Cigarette Smoker [facility] Start: 01-25-2023 End: 11-16-2023 Tobacco use and exposure Smokeless tobacco non-user [facility] Start: 08-16-2023 End: 10-01-2024 Alcoholic beverage intake Ex-drinker (finding) [facility] Start: 09-04-2020 End: 01-25-2023 History of Social function [facility] Start: 09-04-2020 End: 01-25-2023 Humiliation, Afraid, Rape, and Kick questionnaire [HARK] [facility] Within the last year , have you been afraid of your partner or ex-partner? No [facility] Are you now , , , , never or living with a partner? [facility] How often to you hav e a drink containing alcohol? Monthly or less [facility] How many standard dr inks containing alcohol do you have on a typical day? 1 or 2 [facility] How often do you hav e 6 or more drinks on 1 occasion? Never [facility] How hard is it for y ou to pay for the very basics like food, housing, medical care, and heating Not hard at all [facility] Do you feel stress - tense, restless, nervous, or anxious, or unable to sleep at night because your mind is troubled all the time - these days [OSQ] Not at all [facility] (I/We) worried wheth er (my/our) food would run out before (I/we) got money to buy more. Never true [facility] Start: 1945 Sex assigned at Male [facility] Start: 07-07-2021 Gender identity Identifies as male gender (finding) [facility] Start: 07-07-2021 Sexual orientation Heterosexual (finding) [facility] Start: 09-10-2024 End: 09-11-2024 Tobacco smoking status Heavy tobacco smoker (finding) [facility] Start: 10-17-2023 End: 11-16-2023 Alcoholic beverage intake [facility] Start: 04-25-2018 Alcohol Comment not very often [facility] Start: 03-13-2015 Sex Male (finding[facility] Medical Equipment Procedure Code Equipment Code Equipment Origin al Text Equipment Identifier Dates Lens Iol Ultrase rt 18.5d - [id number] - [id number] Start: 04-25-2018 Lens Iol Ultrase rt 19.0d - [id number] - [id number] Start: 05-09-2018 Functional Status Date Assessment Result Facility 09-11-2024 Functional Status N/A [facility] 09-10-2024 Functional Status N/A [facility] Clinical Notes 08-18-2023 to 10-19-2024 Odell Rojas DO - 10/19/2024 9:45 AM EDTTelephone Encounter - Avril Porter MA - 10/18/2024 8:25 AM EDTTelephone Encounter - Avril Porter MA - 10/18/2024 8:25 AM EDT Note Date & Type Note Facility 10-19-2024 History of Present illness Narrative Singh Bowman Date of visit: 10/19/2024 Date of : 1945 Age: 79 y.o. Patient Active Problem List Diagnosis Rectal bleeding Hx of adenomatous colonic polyps Adenomatous polyp of transverse colon Paroxysmal atrial fibrillation (CMS-HCC) Mixed hyperlipidemia Shortness of breath Longstanding persistent atrial fibrillation (CMS-HCC) Pre-op evaluation No Known Allergies Current Outpatient Medications Medication Sig Dispense Refill apixaban (ELIQUIS) 5 mg tablet TAKE 1 TABLET BY MOUTH TWICE A DAY 60 tablet 11 dilTIAZem XR (DILACOR XR) 180 MG 24 hr capsule Take 1 capsule (180 mg total) by mouth in the morning. 30 capsule 1 finasteride (PROSCAR) 5 mg tablet Take 1 tablet (5 mg total) by mouth in the morning. methazolAMIDE (NEPTAZANE) 50 mg tablet Take 1 tablet (50 mg total) by mouth in the morning and 1 tablet (50 mg total) before bedtime. tamsulosin (FLOMAX) 0.4 mg capsule Take 1 capsule (0.4 mg total) by mouth nightly. No current facility-administered medications for this visit. Chief Complaint Patient presents with New Patient Atrial Fibrillation Pre-op Exam Cysto/TURP @ [facility] Dr Butler, 11/01/2024 History of Present Illness Singh was seen today for preoperative evaluation for cystoscopy and prostate procedure. He has been seen by my partner Dr. Alaniz for his history of persistent atrial fibrillation. He has had previous cryo balloon PVI and RF ablation of the RS V August 2022. About 2 weeks ago he was noted to be back in atrial fibrillation after recent viral illness. He has a cardia device which they check on a regular basis. He denied any palpitations. He has not had any orthopnea or paroxysmal nocturnal dyspnea. He has a history normal left ventricular function with mild mitral insufficiency, status post PARTH in 2022. He has had a negative stress test in 2020. He is currently on diltiazem for rate control. He has noticed some chronic lower extremity edema which has been present for number of months. Past Medical History: Diagnosis Date Angina pectoris ([facility]) Atrial fibrillation ([facility]) Back pain Benign prostatic hyperplasia Cataracts, bilateral Colon polyps GERD (gastroesophageal reflux disease) Hemorrhoids Hyperlipidemia Meniere disease 06/2022 Peripheral angiopathy in diseases classified elsewhere ([facility]) No data recorded No data recorded No data recorded Past Surgical History: Procedure Laterality Date Afib Ablation with PARTH-NEL, CRYO, ICE N/A 08/11/2022 Performed by Emiliano Alaniz MD at [facility] (EP) APPENDECTOMY 1967 BACK SURGERY 1986 CHOLECYSTECTOMY 09/26/2013 COLONOSCOPY 08/14/2010 COLONOSCOPY 10/16/2012 COLONOSCOPY 10/20/2015 COLONOSCOPY N/A 08/31/2019 Performed by Jed Worthington MD at [facility] COLONOSCOPY DIAGNOSTIC / SCREENING N/A 10/14/2023 Performed by Javier Zaman MD at [facility] EYE SURGERY 2017 PHACO KELMAN I IMPLANT INTRAOCULAR LENS Right 05/09/2018 Performed by Aracelis Auguste MD at [facility] PHACO KELMAN I IMPLANT INTRAOCULAR LENS Left 04/25/2018 Performed by Aracelis Auguste MD at [facility] SKIN BIOPSY 2007 TONSILLECTOMY 1952 Family History Problem Relation Age of Onset Stroke Mother Heart disease Mother Stroke Father Colon cancer Sister Breast cancer Sister Social History Socioeconomic History Marital status: Spouse name: Not on file Number of children: Not on file Years of education: Not on file Highest education level: Not on file Occupational History Not on file Tobacco Use Smoking status: Former Current packs/day: 0.00 Average packs/day: 1 pack/day for 20.0 years (20.0 ttl pk-yrs) Types: Cigarettes Start date: 1978 Quit date: 1998 Years since quittin.2 Smokeless tobacco: Never Vaping Use Vaping status: Never Used Substance and Sexual Activity Alcohol use: Yes Comment: not very often Drug use: No Sexual activity: Defer Other Topics Concern Caffeine Use Yes Comment: VERY LITTLE Social History Narrative Not on file Social Drivers of Health Financial Resource Strain: Low Risk (01/25/2023) Received from [facility] Healthcare, [facility] Overall Financial Resource Strain (CARDIA) Difficulty of Paying Living Expenses: Not hard at all Food Insecurity: No Food Insecurity (10/19/2024) Hunger Screening Food Insecurity - Worry: Never True Food Insecurity - Inability: Never True Transportation Needs: No Transportation Needs (01/25/2023) Received from [facility] - Transportation Lack of Transportation (Medical): No Lack of Transportation (Non-Medical): No Physical Activity: Sufficiently Active (01/25/2023) Received from [facility] Exercise Vital Sign Days of Exercise per Week: 5 days Minutes of Exercise per Session: 60 min Stress: No Stress Concern Present (01/25/2023) Received from [facility] [place] [facility] Occupational [facility] - Occupational Stress Questionnaire Feeling of Stress : Not at all Social Connections: Moderately Isolated (01/25/2023) Received from [facility] Social Connection and Isolation Panel [NHANES] Frequency of Communication with Friends and Family: More than three times a week Frequency of Social Gatherings with Friends and Family: More than three times a week Attends Voodoo Services: Never Active Member of Clubs or Organizations: No Attends Club or Organization Meetings: Never Marital Status: Interpersonal Safety: Not At Risk (01/25/2023) Received from [facility] Humiliation, Afraid, Rape, and Kick questionnaire Fear of Current or Ex-Partner: No Emotionally Abused: No Physically Abused: No Sexually Abused: No Housing Instability: Low Risk (01/25/2023) Received from [facility] Housing Stability Vital Sign Unable to Pay for Housing in the Last Year: No Number of Places Lived in the Last Year: 1 Unstable Housing in the Last Year: No Review of Systems Review of Systems Constitutional: Negative for chills, fever and malaise/fatigue. HENT: Negative for hearing loss, hoarse voice and nosebleeds. Eyes: Negative for blurred vision, double vision and redness. Respiratory: Negative for shortness of breath and sleep disturbances due to breathing. Endocrine: Negative for cold intolerance and heat intolerance. Hematologic/Lymphatic: Negative for bleeding problem. Does not bruise/bleed easily. Skin: Negative for color change, flushing, itching and nail changes. Musculoskeletal: Positive for joint swelling. Negative for falls, joint pain and myalgias. Gastrointestinal: Negative for heartburn, hematochezia and melena. Genitourinary: Negative for dysuria, frequency and hematuria. Neurological: Positive for dizziness and light-headedness. Negative for focal weakness, loss of balance and weakness. Psychiatric/Behavioral: Negative for altered mental status and memory loss. CARDIOVASCULAR: Please review HPI. Physical Examination General appearance: Alert, oriented and cooperative. In no acute distress. Skin: Warm and dry to touch. Head: Normocephalic, without obvious abnormality, atraumatic. Ears, Nose, Mouth, Throat: Throat clear without erythema or exudate. Dentition intact. Eyes: Conjunctivae unremarkable, EOM intact. Neck: No JVD, No carotid bruit. Neck supple, trachea midline. Respiratory: Clear to auscultation bilaterally, no use of accessory muscles. Cardiovascular: IRRR with normal S1 and S2 with no murmurs. Gastrointestinal: Soft, non-tender. Bowel sounds normal. Musculoskeletal: No peripheral edema. Neurologic: Oriented to time, person and place, affect appropriate. No focal/major motor defects noted. Psychiatric: Appropriate mood, memory and judgement. VITAL SIGNS: BP 140/74 Pulse 92 Ht 185.4 cm (6' 1 ) Wt 92.1 kg (203 lb) BMI 26.78 kg/m Orders Placed or Reconciled This Encounter Medications methazolAMIDE (NEPTAZANE) 50 mg tablet Sig: Take 1 tablet (50 mg total) by mouth in the morning and 1 tablet (50 mg total) before bedtime. Medications Discontinued During This Encounter Medication Reason atorvastatin (LIPITOR) 20 mg tablet Discontinued by another clinician triamterene-hydroCHLOROthiazid (MAXZIDE) 75-50 mg per tablet Discontinued by another clinician IMPRESSIONS/PLAN 1. Longstanding persistent atrial fibrillation (CMS-HCC) 2. Pre-op evaluation Singh figueroa will be at low risk for his planned urological procedure. He may be off his apixaban 3 days prior to the procedure. Recent chest x-ray was negative. His electrocardiogram reveals atrial fibrillation with controlled ventricular response. After his procedure, would like to resume his apixaban and when he has been on it for 3 weeks uninterrupted, most likely will have cardioversion. He has follow-up with Dr. Alaniz in November. He will general cardiology follow-up in the [place] office in 6 months. TODAYS ORDERS No orders of the defined types were placed in this encounter. FOLLOW UP Return in about 6 months (around 04/21/2025). PCP: Mary Grace Rashid MD Referring Physician: Mary Grace Rashid MD [address] [place] [address] documented in this encounter [facility] 10-18-2024 Miscellaneous Notes Called patient to remind them to bring their most current copy of their medication list with them to their appt. Spoke w/spouse verbalizes understanding. documented in this encounter [facility] 10-18-2024 Telephone encounter Note Called patient to remind them to bring their most current copy of their medication list with them to their appt. Spoke w/spouse verbalizes understanding. [facility] 10-09-2024 Miscellaneous Notes Since starting metroprolol, pt has been in AFIB with low blood pressures, he had this reaction before years ago. He's been extremely fatigued, sleeping constantly, having memory problems and some trouble breathing and a rash. took him off metroprolol. Cardio states pt needs inversion since ablation has failed fixing afib. But cannot do until Thyroid is under control. Please advise. documented in this encounter [facility] 10-09-2024 Telephone encounter Note Since starting metroprolol, pt has been in AFIB with low blood pressures, he had this reaction before years ago. He's been extremely fatigued, sleeping constantly, having memory problems and some trouble breathing and a rash. took him off metroprolol. Cardio states pt needs inversion since ablation has failed fixing afib. But cannot do until Thyroid is under control. Please advise. [facility] 10-01-2024 History of Present illness Narrative Images from the original note were not included. Chief Complaint: memory loss Subjective Singh Bowman, 79 y.o., male Patient presents today for a neurologic consult at the request of Dr. Ryan for memory changes. He is accompanied by his , Kary. Patient states he believes he has been having an issue for a few years. His states this has been worse for about one year. He has difficulty remembering names. His notes he also has difficulty with joint terminal attack controller things from a few years ago. She states she has to repeat what they are doing for the day. She states he seems like he just is not there at times. He is independent with all ADL's. He reports he wakes up about every hour to use the restroom. He has a prostate surgery coming up November 01. Patient denies any increase in anxiety and agitation. His states he is more short now then he ever was previously. He reports family history of dementia in his mother and father. MOCA Review of Systems Constitutional: Negative for appetite change, fatigue and fever. Respiratory: Negative for cough, shortness of breath and wheezing. Cardiovascular: Negative for chest pain, palpitations and leg swelling. Gastrointestinal: Negative for abdominal pain, constipation, diarrhea and nausea. Musculoskeletal: Negative for arthralgias, gait problem and myalgias. Neurological: Negative for dizziness, tremors, numbness and headaches. Memory loss Past Medical History: Diagnosis Date Cholecystitis Colon polyps COVID-19 ETD (eustachian tube dysfunction) Gallbladder disorder History of medical problems herniated disk Meniere disease Peripheral angiopathy (CMS/HCC) Sensorineural hearing loss of both ears Past Surgical History: Procedure Laterality Date APPENDECTOMY 1967 BACK SURGERY 1985 CARDIAC ELECTROPHYSIOLOGY STUDY AND ABLATION 08/11/2022 CARDIOVERSION 2021 CATARACT EXTRACTION, BILATERAL 2018 CHOLECYSTECTOMY 2013 COLONOSCOPY W/ POLYPECTOMY 2012 HEMORRHOIDECTOMY 05/2019 Family History Problem Relation Name Age of Onset Heart disease Mother Stroke Mother Coronary artery disease Mother Social History Tobacco Use Smoking status: Former Current packs/day: 0.00 Types: Cigarettes Quit date: 1998 Years since quittin.1 Smokeless tobacco: Never Substance Use Topics Alcohol use: Not Currently Allergies: Patient has no known allergies. Vitals: 10/01/24 0910 BP: 118/72 Pulse: 67 SpO2: 96% Body mass index is 25.99 kg/m . weight: 202 lb 6.4 oz Neurologic exam: Mental status: Awake, alert to person, place and time. MOCA: 16/30 Language is fluent without aphasia. Attention and concentration are normal. Fund of knowledge is appropriate for level of education. Cranial nerves: CN II: Visual acuity is normal. Visual aponte full to confrontation. CN III, IV, : pupils equal round and reactive to light. Extraocular movements intact. No ptosis present. CN V: Facial sensation is normal. CN VII: Full and symmetric facial movement. CN VIII: Hearing is normal to finger rub bilaterally: CN IX and X: Palate elevates symmetrically. CN XI: Shoulder shrug is normal bilaterally. CN XII: Tongue is midline without atrophy or fasciculation. Motor: RUE Strength deltoid, , biceps , triceps , wrist extensors , wrist flexor , laser machine operator strength 5/5. LUE Strength deltoid , biceps , triceps , wrist extensors , wrist flexor , laser machine operator strength 5/5. RLE Strength illopsoas, quadriceps, tibialis anterior, and gastrocnemius strength 5/5. LLE Strength illopsoas, quadriceps, tibialis anterior, and gastrocnemius strength 5/5. Normal tone x4 extremities. Bulk is normal. Sensory: Sensation is intact to light touch throughout Four extremities. Reflexes: RUE biceps reflex 1+ brachioradialis reflex 2+ . LUE biceps reflex 1+ brachioradialis reflex 2+ . RLE knee reflex 1+ . LLE knee reflex 1+ . Harrison's sign negative. Coordination: Eprnln-st-zvkd testing and rapid alternating movements are normal Gait: Normal Review and summary of old records: Halfway cognitive assessment at [facility] on 10/01/2024: 1630 MRI of the brain on 09/02/2023: Chronic microangiopathy. No acute findings. MRI of the cervical spine on 09/02/2023: Multilevel spondylosis along with neural foraminal narrowing which is moderate to severe at multiple levels bilaterally. The spinal cord itself is normal in course and caliber. Carotid ultrasound on 08/23/2023: No evidence of flow-limiting stenosis. Antegrade flow in the vertebral arteries. No significant plaque identified at the carotid bifurcations. B12 is normal on 08/17/2024 TSH with reflex on 08/17/2024: Low. Being managed by PCP. Assessment/Plan Diagnoses and all orders for this visit: Moderate late onset Alzheimer's dementia, unspecified whether behavioral, psychotic, or mood disturbance or anxiety (CMS/HCC) Hyperthyroidism It is my impression that the patient has memory impairment. [facility]ero cognitive assessment at [facility] on 10/01/2024 was 16/30. MRI of the brain does not identify any acute intracranial abnormalities that would account for the patient's symptoms but does show chronic white matter changes. Carotid ultrasound is unremarkable. B12 was normal in August 2024. Thyroid is abnormal and is being managed by primary care. The patient does have hyperthyroidism that is being managed by endocrinology. Patient is now on treatment with methimazole for this. Certainly thyroid dysfunction could be playing a role in the patient's memory impairment but I feel like this is less likely to be a complete picture of the culprit and maybe more of a small component. Hopefully neuropsych testing may be able to tease some of this out. Plan: Start Aricept 5 mg p.o. daily. Side effects discussed and patient is agreeable Neuropsych testing to further understand that patient's degree of memory impairment and other contributing factors and suggestions for care plan I suggest no driving as the patient has a borderline low Halfway cognitive assessment and does have good support through his who is here today. understands and is agreeable. Patient was accompanied by his today who provided additional history and was understanding and agreeable to the plan. Pt has been fully educated on their diagnosis, lab results, treatment options, follow up plan, return instructions, and discussion of mental health issues documented in this encounter [facility] 09-18-2024 History of Present illness Narrative Singh Bowman is a 79 y.o. male No ref. provider found presents with chief complaint of Thyroid Problem and Follow-up (LAB) HPI: IM : 09/2024 Follow-up visit 09/18/2024 for lab still hyper TSH 0.005, free T4 2.1 ( 0.82-1.77), free T3 4.2 ( 2-4.4), TPO 11, TR AP less than 1.1, TG antibodies negative, he finished course of prednisone to for 2 weeks, still in metoprolol 25 HPI : 08/2024 New patient sent from Dr. Mary Grace Rashid for hyper thyroidism TSH 0.01, free T4 2.1 ( 0.8-1.8) in August/2024, back in August/2023 TSH 1.53, ultrasound shows 2 small nodules in the right lobe 4 and 5 mm and 1 small nodule in left lobe 4 mm, denies history of thyroid problem before, he has Afib status post ablation he is on Eliquis. US o thyroid 08/2024: Heterogeneous parenchymal echotexture of each lobe of the thyroid gland. Nodularity in the right lobe of the thyroid gland measuring 0.4 x 0.4 x 0.2 cm is anechoic corresponding to a cyst. Solid hypoechoic focus in the mid pole of the right lobe of the thyroid gland measuring 0.5 x 0.3 x 0.2 cm. This is well-defined. No associated calcifications. Hypoechoic solid nodule in the mid portion of the left lobe of the thyroid gland, 0.4 x 0.4 x 0.2 cm. This nodule is well-defined. No associated calcifications. Normal color flow signal in each lobe of the thyroid gland. Measurements: Right Lobe: 4.48 x 1.96 x 2.36 cm Left Lobe: 5.04 x 1.79 x 2.36 cm Isthmus: 0.25 cm SUBJECTIVE: MEDICATIONS: Current Outpatient Medications Medication Instructions apixaban (Eliquis) 5 MG tablet 1 tablet, 2 times daily atorvastatin (LIPITOR) 20 mg, Oral, Daily finasteride (PROSCAR) 5 mg, Oral, Daily methIMAzole (TAPAZOLE) 10 mg, Oral, 2 times daily metoprolol succinate XL (TOPROL-XL) 25 mg, Oral, Daily, Do not crush or chew. predniSONE (DELTASONE) 20 mg, Oral, Daily tamsulosin (FLOMAX) 0.4 mg, Oral, Daily ALLERGIES: No Known Allergies Past Medical History: Diagnosis Date Cholecystitis Colon polyps COVID-19 ETD (eustachian tube dysfunction) Gallbladder disorder History of medical problems herniated disk Meniere disease Peripheral angiopathy (CMS/HCC) Sensorineural hearing loss of both ears Past Surgical History: Procedure Laterality Date APPENDECTOMY 1967 BACK SURGERY 1986 CARDIAC ELECTROPHYSIOLOGY STUDY AND ABLATION 08/11/2022 CARDIOVERSION 2021 CATARACT EXTRACTION, BILATERAL 2018 CHOLECYSTECTOMY 2013 COLONOSCOPY W/ POLYPECTOMY 2012 HEMORRHOIDECTOMY 05/2019 REVIEW OF SYMPTOMS: 14 POINT OF SYSTEM REVIEWED AND NEGATIVE OBJECTIVE: Lab Results Component Value Date TSH <0.005 (L) 09/06/2024 Lab Results Component Value Date T4FREE 2.1 (H) 08/17/2024 Lab Results Component Value Date FREET3 4.2 09/06/2024 Visit Vitals Pulse 62 Resp 16 Wt 200 lb SpO2 96% BMI 25.68 kg/m Smoking Status Former BSA 2.18 m Physical Exam Constitutional: Appearance: Normal appearance. He is normal weight. HENT: Head: Normocephalic and atraumatic. Right Ear: External ear normal. Nose: Nose normal. Mouth/Throat: Pharynx: Oropharynx is clear. Eyes: Extraocular Movements: Extraocular movements intact. Pupils: Pupils are equal, round, and reactive to light. Cardiovascular: Rate and Rhythm: Normal rate and regular rhythm. Pulmonary: Effort: Pulmonary effort is normal. Abdominal: General: Abdomen is flat. Palpations: Abdomen is soft. Musculoskeletal: General: Normal range of motion. Skin: General: Skin is warm. Neurological: General: No focal deficit present. Mental Status: He is alert. Psychiatric: Mood and Affect: Mood normal. Behavior: Behavior normal. ASSESSMENT AND PLAN: Assessment/Plan Diagnoses and all orders for this visit: Hyperthyroidism (CMS/HCC) - methIMAzole (Tapazole) 10 MG tablet; Take 1 tablet (10 mg) by mouth in the morning and 1 tablet (10 mg) before bedtime. - T3, free; Future - T4, free; Future - TSH; Future Antibodies negative, that is rule out autoimmune disease, might related to thyroiditis, I will start him on methimazole 10 mg twice a day for 2 weeks, then cut back to once a day, meanwhile we will continue with beta dara, we will see him in 2 months and adjust the medication accordingly. 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 documented in this encounter [facility] 09-11-2024 Hospital Discharge instructions Patient Education 09/11/2024 14:07:37 Transurethral Resection of the Prostate, Care After Transurethral Resection of the Prostate, Care After The following information offers guidance on how to care for yourself after your procedure. Your health care provider may also give you more specific instructions. If you have problems or questions, contact your health care provider. What can I expect after the procedure? After the procedure, it is common to have: Mild pain in your lower abdomen. Soreness or mild discomfort in your penis or when you urinate. This is from having the catheter inserted during the procedure. A sudden urge to urinate (urgency). A need to urinate often. A small amount of blood in your urine. You may notice some small blood clots in your urine. These are normal. Follow these instructions at home: Medicines Take tqvh-fmy-sejqhal and prescription medicines only as told by your health care provider. If you were prescribed an antibiotic medicine, take it as told by your health care provider. Do not stop taking the antibiotic even if you start to feel better. Activity Rest as told by your health care provider. Avoid sitting for a long time without moving. Get up to take short walks every 1 2 hours. This is important to improve blood flow and breathing. Ask for help if you feel weak or unsteady. You may increase your physical activity gradually as you start to feel better. Do not drive or operate machinery until your health care provider says that it is safe. Do not ride in a car for long periods of time, or as told by your health care provider. Avoid intense physical activity for as long as told by your health care provider. Do not lift anything that is heavier than 10 lb (4.5 kg), or the limit that you are told, until your health care provider says that it is safe. Do not have sex until your health care provider approves. Return to your normal activities as told by your health care provider. Ask your health care provider what activities are safe for you. Preventing constipation You may need to take these actions to prevent or treat constipation: Drink enough fluid to keep your urine pale yellow. Take unbr-jnl-jagrhyk or prescription medicines. Eat foods that are high in fiber, such as beans, whole grains, and fresh fruits and vegetables. Limit foods that are high in fat and processed sugars, such as fried or sweet foods. General instructions Do not strain when you have a bowel movement. Straining may lead to bleeding from the prostate. This may cause blood clots and trouble urinating. Do not use any products that contain nicotine or tobacco. These products include cigarettes, chewing tobacco, and vaping devices, such as e-cigarettes. If you need help quitting, ask your health care provider. If you go home with a tube draining your urine (urinary catheter), care for the catheter as told by your health care provider. Wear compression stockings as told by your health care provider. These stockings help to prevent blood clots and reduce swelling in your legs. Keep all follow-up visits. This is important. Contact a health care provider if: You have signs of infection, such as: ?Fever or chills. ?Urine that smells very bad. ?Swelling around your urethra that is getting worse. ?Swelling in your penis or testicles. You have difficulty urinating. You have pain that gets worse or does not improve with medicine. You have blood in your urine that does not go away after 1 week of resting and drinking more fluids. You have trouble having a bowel movement. You have trouble having or keeping an erection. No semen comes out during orgasm (dry ejaculation). You have a urinary catheter in place, and you have: ?Spasms or pain. ?Problems with your catheter or your catheter is blocked. Get help right away if: You are unable to urinate. You are having more blood clots in your urine instead of fewer. You have: ?Large blood clots. ?A lot of blood in your urine. ?Pain in your back or lower abdomen. You have difficulty breathing or shortness of breath. You develop swelling or pain in your leg. These symptoms may be an emergency. Get help right away. Call 911. Do not wait to see if the symptoms will go away. Do not drive yourself to the hospital. Summary After the procedure, it is common to have a small amount of blood in your urine. Follow restrictions about lifting and sexual activity as told by your health care provider. Ask what activities are safe for you. Keep all follow-up visits. This is important. This information is not intended to replace advice given to you by your health care provider. Make sure you discuss any questions you have with your health care provider. Document Revised: 04/20/2022 Document Reviewed: 04/20/2022 [employer] Patient Education 2023 T-VIPS. 09/11/2024 14:07:37 Transurethral Resection of the Prostate Transurethral Resection of the Prostate Transurethral resection of the prostate (TURP) is the removal, or resection, of part of the prostate tissue. This procedure is done to treat an enlarged prostate gland (benign prostatic hyperplasia). The goal of TURP is to remove enough prostate tissue to allow for a normal flow of urine. The procedure will allow you to empty your bladder more completely when you urinate so that you can urinate less often. In a transurethral resection, a thin telescope with a light, a camera, and an electric cutting edge (resectoscope) is passed through the urethra and into the prostate. The opening of the urethra is at the end of the penis. Tell a health care provider about: Any allergies you have. All medicines you are taking, including vitamins, herbs, eye drops, creams, and kaaq-drr-sfajvys medicines. Any problems you or family members have had with anesthetic medicines. Any bleeding problems you have. Any surgeries you have had. Any medical conditions you have. Any prostate infections you have had. What are the risks? Generally, this is a safe procedure. However, problems may occur, including: Infection. Bleeding. Allergic reactions to medicines. Blood in the urine (hematuria). Damage to nearby structures or organs. Other problems may occur, but they are rare. They include: Dry ejaculation, or having no semen come out during orgasm. Erectile dysfunction, or being unable to have or keep an erection. Scarring that leads to narrowing of the urethra. This narrowing may block the flow of urine. Inability to control when you urinate (incontinence). Deep vein thrombosis. This is a blood clot that can develop in your leg. TURP syndrome. This can happen when you lose too much sodium during or after the procedure. Some signs and symptoms of this condition include: ?Weakness. ?Headaches. ?Nausea or vomiting. ?Muscle cramping. What happens before the procedure? When to stop eating and drinking Follow instructions from your health care provider about what you may eat and drink before your procedure. These may include: 8 hours before your procedure ?Stop eating most foods. Do not eat meat, fried foods, or fatty foods. ?Eat only light foods, such as toast or crackers. ?All liquids are okay except energy drinks and alcohol. 6 hours before your procedure ?Stop eating. ?Drink only clear liquids, such as water, clear fruit juice, black coffee, plain tea, and sports drinks. ?Do not drink energy drinks or alcohol. 2 hours before your procedure ?Stop drinking all liquids. ?You may be allowed to take medicines with small sips of water. If you do not follow your health care provider's instructions, your procedure may be delayed or canceled. Medicines Ask your health care provider about: Changing or stopping your regular medicines. This is especially important if you are taking diabetes medicines or blood thinners. Taking medicines such as aspirin and ibuprofen. These medicines can thin your blood. Do not take these medicines unless your health care provider tells you to take them. Taking qchy-lzu-nhapglz medicines, vitamins, herbs, and supplements. Surgery safety Ask your health care provider what steps will be taken to help prevent infection. These steps may include: Removing hair at the surgery site. Washing skin with a germ-killing soap. Taking antibiotic medicine. General instructions Do not use any products that contain nicotine or tobacco for at least 4 weeks before the procedure. These products include cigarettes, chewing tobacco, and vaping devices, such as e-cigarettes. If you need help quitting, ask your health care provider. If you will be going home right after the procedure, plan to have a responsible adult: ?Take you home from the hospital or clinic. You will not be allowed to drive. ?Care for you for the time you are told. What happens during the procedure? An IV will be inserted into one of your veins. You will be given one or more of the following: ?A medicine to help you relax (sedative). ?A medicine to make you fall asleep (general anesthetic). ?A medicine that is injected into your spine to numb the area below and slightly above the injection site (spinal anesthetic). Your legs will be placed in foot rests (stirrups) so that your legs are apart and your knees are bent. The resectoscope will be passed through your urethra to your prostate. Parts of your prostate will be resected using the cutting edge of the resectoscope. Fluid will be passed to rinse out the cut tissues (irrigation). The resectoscope will be removed. A small, thin tube (catheter) will be passed through your urethra and into your bladder. The catheter will drain urine into a bag outside of your body. The procedure may vary among health care providers and hospitals. What happens after the procedure? Your blood pressure, heart rate, breathing rate, and blood oxygen level will be monitored until you leave the hospital or clinic. You will be given fluids through the IV. The IV will be removed when you start eating and drinking normally. You may have some pain. Pain medicine will be available to help you. You will have a catheter draining your urine. ?You may have blood in your urine. Your catheter may be kept in until your urine is clear. ?Your urinary drainage will be monitored. If necessary, your bladder may be rinsed out (irrigated) through your catheter. You will be encouraged to walk around as soon as possible. You may have to wear compression stockings. These stockings help to prevent blood clots and reduce swelling in your legs. If you were given a sedative during the procedure, it can affect you for several hours. Do not drive or operate machinery until your health care provider says that it is safe. Summary Transurethral resection of the prostate (TURP) is the removal (resection) of part of the prostate tissue. The goal of this procedure is to remove enough prostate tissue to allow for a normal flow of urine. Follow instructions from your health care provider about taking medicines and about eating and drinking before the procedure. This information is not intended to replace advice given to you by your health care provider. Make sure you discuss any questions you have with your health care provider. Document Revised: 04/20/2022 Document Reviewed: 04/20/2022 [employer] Patient Education 2023 T-VIPS. Follow Up Care 09/10/2024 11:53:09 With:CARRIE PALMA, ALEXX Deluna Address: [facility] [address], [place] [id number]- When: Unknown [facility] 09-11-2024 Note Patient Education Urology Transurethral Resection of the Prostate, Care After The following information offers guidance on how to care for yourself after your procedure. Your health care provider may also give you more specific instructions. If you have problems or questions, contact your health care provider. What can I expect after the procedure? After the procedure, it is common to have: ??? Mild pain in your lower abdomen. ??? Soreness or mild discomfort in your penis or when you urinate. This is from having the catheter inserted during the procedure. ??? A sudden urge to urinate (urgency). ??? A need to urinate often. ??? A small amount of blood in your urine. You may notice some small blood clots in your urine. These are normal. Follow these instructions at home: Medicines ??? Take cahz-tsg-phldrlw and prescription medicines only as told by your health care provider. ??? If you were prescribed an antibiotic medicine, take it as told by your health care provider. Do not stop taking the antibiotic even if you start to feel better. Activity ??? Rest as told by your health care provider. ??? Avoid sitting for a long time without moving. Get up to take short walks every 1?2 hours. This is important to improve blood flow and breathing. Ask for help if you feel weak or unsteady. You may increase your physical activity gradually as you start to feel better. ??? Do not drive or operate machinery until your health care provider says that it is safe. ??? Do not ride in a car for long periods of time, or as told by your health care provider. ??? Avoid intense physical activity for as long as told by your health care provider. ??? Do not lift anything that is heavier than 10 lb (4.5 kg), or the limit that you are told, until your health care provider says that it is safe. ??? Do not have sex until your health care provider approves. ??? Return to your normal activities as told by your health care provider. Ask your health care provider what activities are safe for you. Preventing constipation You may need to take these actions to prevent or treat constipation: ??? Drink enough fluid to keep your urine pale yellow. ??? Take gxsy-dfj-xzlwymx or prescription medicines. ??? Eat foods that are high in fiber, such as beans, whole grains, and fresh fruits and vegetables. ??? Limit foods that are high in fat and processed sugars, such as fried or sweet foods. General instructions ??? Do not strain when you have a bowel movement. Straining may lead to bleeding from the prostate. This may cause blood clots and trouble urinating. ??? Do not use any products that contain nicotine or tobacco. These products include cigarettes, chewing tobacco, and vaping devices, such as e-cigarettes. If you need help quitting, ask your health care provider. ??? If you go home with a tube draining your urine (urinary catheter), care for the catheter as told by your health care provider. ??? Wear compression stockings as told by your health care provider. These stockings help to prevent blood clots and reduce swelling in your legs. ??? Keep all follow-up visits. This is important. Contact a health care provider if: ??? You have signs of infection, such as: ? Fever or chills. ? Urine that smells very bad. ? Swelling around your urethra that is getting worse. ? Swelling in your penis or testicles. ??? You have difficulty urinating. ??? You have pain that gets worse or does not improve with medicine. ??? You have blood in your urine that does not go away after 1 week of resting and drinking more fluids. ??? You have trouble having a bowel movement. ??? You have trouble having or keeping an erection. ??? No semen comes out during orgasm (dry ejaculation). ??? You have a urinary catheter in place, and you have: ? Spasms or pain. ? Problems with your catheter or your catheter is blocked. Get help right away if: ??? You are unable to urinate. ??? You are having more blood clots in your urine instead of fewer. ??? You have: ? Large blood clots. ? A lot of blood in your urine. ? Pain in your back or lower abdomen. ??? You have difficulty breathing or shortness of breath. ??? You develop swelling or pain in your leg. These symptoms may be an emergency. Get help right away. Call 911. ??? Do not wait to see if the symptoms will go away. ??? Do not drive yourself to the hospital. Summary ??? After the procedure, it is common to have a small amount of blood in your urine. ??? Follow restrictions about lifting and sexual activity as told by your health care provider. Ask what activities are safe for you. ??? Keep all follow-up visits. This is important. This information is not intended to replace advice given to you by your health care provider. Make sure you discuss any questions you have with your health care provider. Document Revised: 04/20/2022 D (more content not included)... [facility] 09-10-2024 Hospital Discharge instructions Patient Education 09/10/2024 11:39:28 Cystoscopy Cystoscopy Cystoscopy is a procedure that is used to help diagnose and sometimes treat conditions that affect the lower urinary tract. The lower urinary tract includes the bladder and the urethra. The urethra is the tube that drains urine from the bladder. Cystoscopy is done using a thin, tube-shaped instrument with a light and camera at the end (cystoscope). The cystoscope may be hard or flexible, depending on the goal of the procedure. The cystoscope is inserted through the urethra, into the bladder. Cystoscopy may be recommended if you have: Urinary tract infections that keep coming back. Blood in the urine (hematuria). An inability to control when you urinate (urinary incontinence) or an overactive bladder. Unusual cells found in a urine sample. A blockage in the urethra, such as a urinary stone. Painful urination. An abnormality in the bladder found during an intravenous pyelogram (IVP) or CT scan. Cystoscopy may also be done to remove a sample of tissue to be examined under a microscope (biopsy). Tell a health care provider about: Any allergies you have. All medicines you are taking, including vitamins, herbs, eye drops, creams, and euof-vtm-jemjrns medicines. Any problems you or family members have had with anesthetic medicines. Any blood disorders you have. Any surgeries you have had. Any medical conditions you have. Whether you are or may be . What are the risks? Generally, this is a safe procedure. However, problems may occur, including: Infection. Bleeding. Allergic reactions to medicines. Damage to other structures or organs. What happens before the procedure? Medicines Ask your health care provider about: Changing or stopping your regular medicines. This is especially important if you are taking diabetes medicines or blood thinners. Taking medicines such as aspirin and ibuprofen. These medicines can thin your blood. Do not take these medicines unless your health care provider tells you to take them. Taking banj-sli-xiiaklv medicines, vitamins, herbs, and supplements. Tests You may have an exam or testing, such as: X-rays of the bladder, urethra, or kidneys. CT scan of the abdomen or pelvis. Urine tests to check for signs of infection. General instructions Follow instructions from your health care provider about eating or drinking restrictions. Ask your health care provider what steps will be taken to help prevent infection. These steps may include: ?Washing skin with a germ-killing soap. ?Taking antibiotic medicine. Plan to have a responsible adult take you home from the hospital or clinic. What happens during the procedure? You will be given one or more of the following: ?A medicine to help you relax (sedative). ?A medicine to numb the area (local anesthetic). The area around the opening of your urethra will be cleaned. The cystoscope will be passed through your urethra into your bladder. Germ-free (sterile) fluid will flow through the cystoscope to fill your bladder. The fluid will stretch your bladder so that your health care provider can clearly examine your bladder chacon. Your doctor will look at the urethra and bladder. Your doctor may take a biopsy or remove stones. The cystoscope will be removed, and your bladder will be emptied. The procedure may vary among health care providers and hospitals. What can I expect after the procedure? After the procedure, it is common to have: Some soreness or pain in your abdomen and urethra. Urinary symptoms. These include: ?Mild pain or burning when you urinate. Pain should stop within a few minutes after you urinate. This may last for up to 1 week. ?A small amount of blood in your urine for several days. ?Feeling like you need to urinate but producing only a small amount of urine. Follow these instructions at home: Medicines Take nwke-rbq-krhvseq and prescription medicines only as told by your health care provider. If you were prescribed an antibiotic medicine, take it as told by your health care provider. Do not stop taking the antibiotic even if you start to feel better. General instructions Return to your normal activities as told by your health care provider. Ask your health care provider what activities are safe for you. If you were given a sedative during the procedure, it can affect you for several hours. Do not drive or operate machinery until your health care provider says that it is safe. Watch for any blood in your urine. If the amount of blood in your urine increases, call your health care provider. Follow instructions from your health care provider about eating or drinking restrictions. If a tissue sample was removed for testing (biopsy) during your procedure, it is up to you to get your test results. Ask your health care provider, or the department that is doing the test, when your results will be ready. Drink enough fluid to keep your urine pale yellow. Keep all follow-up visits. This is important. Contact a health care provider if: You have pain that gets worse or does not get better with medicine, especially pain when you urinate. You have trouble urinating. You have more blood in your urine. Get help right away if: You have blood clots in your urine. You have abdominal pain. You have a fever or chills. You are unable to urinate. Summary Cystoscopy is a procedure that is used to help diagnose and sometimes treat conditions that affect the lower urinary tract. Cystoscopy is done using a thin, tube-shaped instrument with a light and camera at the end. After the procedure, it is common to have some soreness or pain in your abdomen and urethra. Watch for any blood in your urine. If the amount of blood in your urine increases, call your health care provider. If you were prescribed an antibiotic medicine, take it as told by your health care provider. Do not stop taking the antibiotic even if you start to feel better. This information is not intended to replace advice given to you by your health care provider. Make sure you discuss any questions you have with your health care provider. Document Revised: 04/07/2022 Document Reviewed: 03/06/2021 [employer] Patient Education 2023 T-VIPS. 09/10/2024 11:34:26 Benign Prostatic Hyperplasia Benign Prostatic Hyperplasia Benign prostatic hyperplasia (BPH) is an enlarged prostate gland that is caused by the normal aging process. The prostate may get bigger as a man gets older. The condition is not caused by cancer. The prostate is a walnut-sized gland that is involved in the production of semen. It is located in front of the rectum and below the bladder. The bladder stores urine. The urethra carries stored urine out of the body. An enlarged prostate can press on the urethra. This can make it harder to pass urine. The buildup of urine in the bladder can cause infection. Back pressure and infection may progress to bladder damage and kidney (renal) failure. What are the causes? This condition is part of the normal aging process. However, not all men develop problems from this condition. If the prostate enlarges away from the urethra, urine flow will not be blocked. If it enlarges toward the urethra and compresses it, there will be problems passing urine. What increases the risk? This condition is more likely to develop in men older than 50 years. What are the signs or symptoms? Symptoms of this condition include: Getting up often during the night to urinate. Needing to urinate frequently during the day. Difficulty starting urine flow. Decrease in size and strength of your urine stream. Leaking (dribbling) after urinating. Inability to pass urine. This needs immediate treatment. Inability to completely empty your bladder. Pain when you pass urine. This is more common if there is also an infection. Urinary tract infection (UTI). How is this diagnosed? This condition is diagnosed based on your medical history, a physical exam, and your symptoms. Tests will also be done, such as: A post-void bladder scan. This measures any amount of urine that may remain in your bladder after you finish urinating. A digital rectal exam. In a rectal exam, your health care provider checks your prostate by putting a lubricated, gloved finger into your rectum to feel the back of your prostate gland. This exam detects the size of your gland and any abnormal lumps or growths. An exam of your urine (urinalysis). A prostate specific antigen (PSA) screening. This is a blood test used to screen for prostate cancer. An ultrasound. This test uses sound waves to electronically produce a picture of your prostate gland. Your health care provider may refer you to a specialist in kidney and prostate diseases (urologist). How is this treated? Once symptoms begin, your health care provider will monitor your condition (active surveillance or watchful waiting). Treatment for this condition will depend on the severity of your condition. Treatment may include: Observation and yearly exams. This may be the only treatment needed if your condition and symptoms are mild. Medicines to relieve your symptoms, including: ?Medicines to shrink the prostate. ?Medicines to relax the muscle of the prostate. Surgery in severe cases. Surgery may include: ?Prostatectomy. In this procedure, the prostate tissue is removed completely through an open incision or with a laparoscope or robotics. ?Transurethral resection of the prostate (TURP). In this procedure, a tool is inserted through the opening at the tip of the penis (urethra). It is used to cut away tissue of the inner core of the prostate. The pieces are removed through the same opening of the penis. This removes the blockage. ?Transurethral incision (TUIP). In this procedure, small cuts are made in the prostate. This lessens the prostate's pressure on the urethra. ?Transurethral microwave thermotherapy (TUMT). This procedure uses microwaves to create heat. The heat destroys and removes a small amount of prostate tissue. ?Transurethral needle ablation (TUNA). This procedure uses radio frequencies to destroy and remove a small amount of prostate tissue. ?Interstitial laser coagulation (ILC). This procedure uses a laser to destroy and remove a small amount of prostate tissue. ?Transurethral electrovaporization (TUVP). This procedure uses electrodes to destroy and remove a small amount of prostate tissue. ?Prostatic urethral lift. This procedure inserts an implant to push the lobes of the prostate away from the urethra. Follow these instructions at home: Take zumn-ebe-doyootl and prescription medicines only as told by your health care provider. Monitor your symptoms for any changes. Contact your health care provider with any changes. Avoid drinking large amounts of liquid before going to bed or out in public. Avoid or reduce how much caffeine or alcohol you drink. Give yourself time when you urinate. Keep all follow-up visits. This is important. Contact a health care provider if: You have unexplained back pain. Your symptoms do not get better with treatment. You develop side effects from the medicine you are taking. Your urine becomes very dark or has a bad smell. Your lower abdomen becomes distended and you have trouble passing urine. Get help right away if: You have a fever or chills. You suddenly cannot urinate. You feel light-headed or very dizzy, or you faint. There are large amounts of blood or clots in your urine. Your urinary problems become hard to manage. You develop moderate to severe low back or flank pain. The flank is the side of your body between the ribs and the hip. These symptoms may be an emergency. Get help right away. Call 911. Do not wait to see if the symptoms will go away. Do not drive yourself to the hospital. Summary Benign prostatic hyperplasia (BPH) is an enlarged prostate that is caused by the normal aging process. It is not caused by cancer. An enlarged prostate can press on the urethra. This can make it hard to pass urine. This condition is more likely to develop in men older than 50 years. Get help right away if you suddenly cannot urinate. This information is not intended to replace advice given to you by your health care provider. Make sure you discuss any questions you have with your health care provider. Document Revised: 02/10/2022 Document Reviewed: 02/10/2022 [employer] Patient Education 2023 T-VIPS. Follow Up Care 08/22/2024 16:15:09 With:CARRIE PALMA, Medina Vazquez, URL Address: [facility] [address], [place] [address] [phone] When: Unknown Comments:sched cysto [facility] 09-10-2024 Note Urology Office/Clini c Note Chief Complaint referral lower urinary tract symptoms HPI Staff 79yr old male pt referred by Mary Grace Rashid MD for BPH with lower urinary tract symptoms. Has c/o frequent urination both during the day, and at night. *finasteride 5mg qd, Flomax 0.4mg qd IPSS - 26, ANAYA - 10 PSA: 08/17/24 - 0.99 Dysuria: denies Incomplete bladder emptying: yes Hematuria: denies Frequency: urinates very frequently Urgency: yes Nocturia: 4-5x per night Stream: very slow, very weak stream Leaking: only if he cannot make it to restroom in time, usually just a small amount Post void dripping: denies Wearing pads/ Depends: denies Urge incontinence: sometimes, very little Stress incontinence: denies Incontinence without Sensory Awareness: denies Abdominal pain: denies Flank pain: denies Sexual complaints: _ History of Present Illness Tests reviewed: reviewed UA, referral records, PSA I have reviewed the previous health record information and history for this patient from external providers. I have reviewed and verified the staff HPI to be accurate for this encounter. Review of Systems PHQ Score Initial Depression Screen Score: 0 SCORE ROS - Provider Constitutional: denies weight loss, denies hot flashes. Eyes: denies eye problems. Gastrointestinal: denies nausea, denies vomiting. Cardiovascular: denies chest pain or angina. Integumentary: no dryness Musculoskeletal: denies musculoskeletal symptoms. ENMT: denies otolaryngeal symptoms. Respiratory: no shortness of breath. Heme/Lymph: denies easy bleeding tendency, denies easy bruising tendency. Psychiatric: no confusion, no anxiety. Genitourinary: See HPI. Physical Exam Vitals & Measurements T: 37 ???C(Oral) HR: 61(Peripheral) RR: 18 BP: 139/78 HT: 74 in HT: 188 cm WT: 91.1 kg WT: 200.841 lb BMI: 25.78 General Appearance: alert, no distress, well nourished, well developed male. Assessment/Plan Singh is a 79 yo male new pt referred by Dr. Mary Grace Rashid for BPH w LUTS. Pt accompanied by today. ANAYA 10. No history of kidney stones but both of his sons have them. Unsure if their mother has hx of kidney stones. 1. BPH with obstruction/lower urinary tract symptoms (N40.1: Benign prostatic hyperplasia with lower urinary tract symptoms) IPSS 25. UA today negative for blood and infection. Taking Tamsulosin 0.4mg qd and Finasteride 5mg qd per PCP. Feels urinary sxs have become more bothersome in the last few years. Does not always feel he empties. Gets up 4-5x/night to void. Denies hx of infections. No prior prostate procedures. PSA 08/17/24 - 0.99. Monitored by PCP. Discussed operative interventions including TURP, versus less invasive options such as Rezum, depending on prostate size and shape. Advised pt a cystoscopy will need done prior to determine candidacy. Risks/benefits of each option have been discussed in detail. -Cont Tamsulosin and Finasteride -Will schedule cystoscopy and probable subsequent TURP. The risks and benefits for cystoscopy have been discussed. The risks include bleeding, infection, and irritation of the bladder and urinary channel, among others. The patient, after being informed of procedural details and after questions have been answered, wishes to proceed. Full informed consent has been obtained. Will order Local anesthesia. Follow-up With When Contact Information CARRIE PALMA, Medina Vazquez, URL [facility] [address] [place] [address]- [phone] Additional Instructions: sched cysto Patient Education Cystoscopy Benign Prostatic Hyperplasia I, Chelsea Casas, personally scribed for Dr. Butler on 09/10/2024 11:40:29. . Documentation recorded by the scribe, Chelsea Casas, accurately reflects the services(s) I performed and decisions made by me. Authenticated by Dr. Butelr on 09/10/2024 11:44:35. Problem List/Past Medical History Ongoing Arthritis Atrial fibrillation BPH with obstruction/lower urinary tract symptoms Frequent UTI Gall stone Headache High cholesterol Hypertension Hyperthyroidism Historical No qualifying data Procedure/Surgical History Appendectomy, Cataracts, Cholecystectomy, Colonoscopy, Tonsillectomy. Medications atorvastatin 20 mg Tab, 20 mg= 1 tab(s) Eliquis 5 mg oral tablet, 5 mg= 1 tab(s) finasteride, 5 mg, Oral, Daily metoprolol, 25 mg, Oral, Daily predniSONE 20 mg Tab, 20 mg= 1 tab(s) tamsulosin 0.4 mg Cap, 0.4 mg= 1 cap(s) Allergies No Known Allergies Social History Alcohol Never., 09/10/2024 Substance Abuse Never., 09/10/2024 Tobacco 10 or more cigarettes (1/2 pack or more)/day in last 30 days, 25 years Tobacco Use:. Never Smokeless Tobacco Use:. Cigarettes, 09/10/2024 Family History Arthritis: Mother. Breast cancer: Sister.Negative: Mother. Heart disease: Mother and Father. High cholesterol: Mother and Father. Hypertension: Mother and Father. Immu (more content not included)... [facility] Comment on above: Result Comment: Elec tronically Signed By: Medina BUTLER MD\.br\Date and Time Signed: 09/10/24 11:44 EST\.br\Electronically Co-Signed By: Chelsea Casas\.br\Date and Time Co-Signed: 09/10/24 11:41 EST 09-10-2024 Note Patient Education Urology Cystoscopy Cystoscopy is a procedure that is used to help diagnose and sometimes treat conditions that affect the lower urinary tract. The lower urinary tract includes the bladder and the urethra. The urethra is the tube that drains urine from the bladder. Cystoscopy is done using a thin, tube-shaped instrument with a light and camera at the end (cystoscope). The cystoscope may be hard or flexible, depending on the goal of the procedure. The cystoscope is inserted through the urethra, into the bladder. Cystoscopy may be recommended if you have: ??? Urinary tract infections that keep coming back. ??? Blood in the urine (hematuria). ??? An inability to control when you urinate (urinary incontinence) or an overactive bladder. ??? Unusual cells found in a urine sample. ??? A blockage in the urethra, such as a urinary stone. ??? Painful urination. ??? An abnormality in the bladder found during an intravenous pyelogram (IVP) or CT scan. Cystoscopy may also be done to remove a sample of tissue to be examined under a microscope (biopsy). Tell a health care provider about: ??? Any allergies you have. ??? All medicines you are taking, including vitamins, herbs, eye drops, creams, and tgni-fuj-qnvwkjw medicines. ??? Any problems you or family members have had with anesthetic medicines. ??? Any blood disorders you have. ??? Any surgeries you have had. ??? Any medical conditions you have. ??? Whether you are or may be . What are the risks? Generally, this is a safe procedure. However, problems may occur, including: ??? Infection. ??? Bleeding. ??? Allergic reactions to medicines. ??? Damage to other structures or organs. What happens before the procedure? Medicines Ask your health care provider about: ??? Changing or stopping your regular medicines. This is especially important if you are taking diabetes medicines or blood thinners. ??? Taking medicines such as aspirin and ibuprofen. These medicines can thin your blood. Do not take these medicines unless your health care provider tells you to take them. ??? Taking vejk-oqr-auzkove medicines, vitamins, herbs, and supplements. Tests You may have an exam or testing, such as: ??? X-rays of the bladder, urethra, or kidneys. ??? CT scan of the abdomen or pelvis. ??? Urine tests to check for signs of infection. General instructions ??? Follow instructions from your health care provider about eating or drinking restrictions. ??? Ask your health care provider what steps will be taken to help prevent infection. These steps may include: ? Washing skin with a germ-killing soap. ? Taking antibiotic medicine. ??? Plan to have a responsible adult take you home from the hospital or clinic. What happens during the procedure? You will be given one or more of the following: ? A medicine to help you relax (sedative). ? A medicine to numb the area (local anesthetic). ??? The area around the opening of your urethra will be cleaned. ??? The cystoscope will be passed through your urethra into your bladder. ??? Germ-free (sterile) fluid will flow through the cystoscope to fill your bladder. The fluid will stretch your bladder so that your health care provider can clearly examine your bladder chacon. ??? Your doctor will look at the urethra and bladder. Your doctor may take a biopsy or remove stones. ??? The cystoscope will be removed, and your bladder will be emptied. The procedure may vary among health care providers and hospitals. What can I expect after the procedure? After the procedure, it is common to have: ??? Some soreness or pain in your abdomen and urethra. ??? Urinary symptoms. These include: ? Mild pain or burning when you urinate. Pain should stop within a few minutes after you urinate. This may last for up to 1 week. ? A small amount of blood in your urine for several days. ? Feeling like you need to urinate but producing only a small amount of urine. Follow these instructions at home: Medicines ??? Take fiix-ykm-ueeyrlm and prescription medicines only as told by your health care provider. ??? If you were prescribed an antibiotic medicine, take it as told by your health care provider. Do not stop taking the antibiotic even if you start to feel better. General instructions ??? Return to your normal activities as told by your health care provider. Ask your health care provider what activities are safe for you. ??? If you were given a sedative during the procedure, it can affect you for several hours. Do not drive or operate machinery until your health care provider says that it is safe. ??? Watch for any blood in your urine. If the amount of blood in your urine increases, call your health care provider. ??? Follow instructions from your health care provider about eating or drinking restrictions. ??? If a tissue sample was removed for testing (biopsy) during your (more content not included)... [facility] 09-06-2024 History of Present illness Narrative Singh Bowman is a 79 y.o. male Mary Grace Rashid MD presents with chief complaint of Thyroid Problem HPI: HPI : 08/2024 New patient sent from Dr. Mary Grace Rashid for hyper thyroidism TSH 0.01, free T4 2.1 ( 0.8-1.8) in August/2024, back in August/2023 TSH 1.53, ultrasound shows 2 small nodules in the right lobe 4 and 5 mm and 1 small nodule in left lobe 4 mm, denies history of thyroid problem before, he has Afib status post ablation he is on Eliquis. US o thyroid 08/2024: Heterogeneous parenchymal echotexture of each lobe of the thyroid gland. Nodularity in the right lobe of the thyroid gland measuring 0.4 x 0.4 x 0.2 cm is anechoic corresponding to a cyst. Solid hypoechoic focus in the mid pole of the right lobe of the thyroid gland measuring 0.5 x 0.3 x 0.2 cm. This is well-defined. No associated calcifications. Hypoechoic solid nodule in the mid portion of the left lobe of the thyroid gland, 0.4 x 0.4 x 0.2 cm. This nodule is well-defined. No associated calcifications. Normal color flow signal in each lobe of the thyroid gland. Measurements: Right Lobe: 4.48 x 1.96 x 2.36 cm Left Lobe: 5.04 x 1.79 x 2.36 cm Isthmus: 0.25 cm SUBJECTIVE: MEDICATIONS: Current Outpatient Medications Medication Instructions apixaban (Eliquis) 5 MG tablet 1 tablet, 2 times daily atorvastatin (LIPITOR) 20 mg, Oral, Daily finasteride (PROSCAR) 5 mg, Oral, Daily metoprolol succinate XL (TOPROL-XL) 25 mg, Oral, Daily, Do not crush or chew. predniSONE (DELTASONE) 20 mg, Oral, Daily tamsulosin (FLOMAX) 0.4 mg, Oral, Daily ALLERGIES: No Known Allergies Past Medical History: Diagnosis Date Cholecystitis Colon polyps COVID-19 ETD (eustachian tube dysfunction) Gallbladder disorder History of medical problems herniated disk Meniere disease Peripheral angiopathy (CMS/HCC) Sensorineural hearing loss of both ears Past Surgical History: Procedure Laterality Date APPENDECTOMY 1967 BACK SURGERY 1985 CARDIAC ELECTROPHYSIOLOGY STUDY AND ABLATION 08/11/2022 CARDIOVERSION 2021 CATARACT EXTRACTION, BILATERAL 2018 CHOLECYSTECTOMY 2013 COLONOSCOPY W/ POLYPECTOMY 2012 HEMORRHOIDECTOMY 05/2019 REVIEW OF SYMPTOMS: 14 POINT OF SYSTEM REVIEWED AND NEGATIVE OBJECTIVE: No results found for: TSH Lab Results Component Value Date T4FREE 2.1 (H) 08/17/2024 No results found for: FREET3 Visit Vitals Pulse 74 Resp 16 Ht 6' 2 Wt 196 lb SpO2 93% BMI 25.16 kg/m Smoking Status Former BSA 2.15 m Physical Exam Constitutional: Appearance: Normal appearance. He is normal weight. HENT: Head: Normocephalic and atraumatic. Right Ear: External ear normal. Nose: Nose normal. Mouth/Throat: Pharynx: Oropharynx is clear. Eyes: Extraocular Movements: Extraocular movements intact. Pupils: Pupils are equal, round, and reactive to light. Cardiovascular: Rate and Rhythm: Normal rate and regular rhythm. Pulmonary: Effort: Pulmonary effort is normal. Abdominal: General: Abdomen is flat. Palpations: Abdomen is soft. Musculoskeletal: General: Normal range of motion. Skin: General: Skin is warm. Neurological: General: No focal deficit present. Mental Status: He is alert. Psychiatric: Mood and Affect: Mood normal. Behavior: Behavior normal. ASSESSMENT AND PLAN: Assessment/Plan Diagnoses and all orders for this visit: Multinodular goiter (CMS/HCC) With toe small nodule in right lobe and 1 in left lobe no need for biopsy we will watch Hyperthyroidism (CMS/HCC) - Ambulatory referral to Endocrinology - metoprolol succinate XL (Toprol-XL) 25 MG 24 hr tablet; Take 1 tablet (25 mg) by mouth Daily Do not crush or chew. - predniSONE (Deltasone) 20 MG tablet; Take 1 tablet (20 mg) by mouth Daily for 14 days - Thyroglobulin Antibody; Future - Thyrotropin receptor antibody; Future - Thyroid peroxidase antibody; Future - T3, free; Future - T4, free; Future - TSH; Future Differential diagnosis Graves disease versus thyroiditis, I doubt to to toxic multinodular goiter, I will check thyroid lab again including antibodies, meanwhile I will start him on small dose of beta dara metoprolol extended-release 25 mg once a day, prednisone 20 mg once a day for 2 weeks until we will see him, and then we will start antithyroid medication if needed. Chronic atrial fibrillation (HCC) ([facility]/HCC) To follow with his final rail cutter he is on [facility] Follow up in about 3 weeks (around 09/27/2024). documented in this encounter [facility] 08-17-2024 History of Present illness Narrative Images from the original note were not included. Singh Bowman is a 79 y.o. male presents with chief complaint of Medicare Annual Wellness Visit Subsequent HPI: HPI Over the past 2 weeks, how often have you been bothered by any of the following problems? Little interest or pleasure in doing things: Not at all Feeling down, depressed, or hopeless: Not at all Patient Health Questionnaire-2 Score: 0 Brothers Fall Risk History of Falling, Immediate or Within 3 Months: Yes Secondary Diagnosis: No Ambulatory Aid: Walks without aid/bedrest/nurse assist Intravenous Therapy/Heparin Lock: No Gait/Transferring: Normal/bedrest/immobile Mental Status: Oriented to own ability Brothers Fall Risk Score: 25 Health Risk Assessment Form Do you need help eating, bathing, using the toilet, dressing, or getting around your home?: No Can you prepare your own meals?: Yes Can you do your own housework without help?: Yes Can you shop for groceries or clothes without help?: Yes Do you exercise for about 20 minutes 3 or more days a week?: Yes How confident are you that you can control and manage most of your health problems?: Very confident Can you mange your money, credit cards and accounts, pay bills and taxes?: Yes Vision Screening: Yes, no gross abnormalities Hearing Screening: Yes, no gross abnormalities Cognitive Screening Self Assessment: No overt cognitive deficiency is apparent by direct observation Three Word Registration: Banana, Alden, Chair Clock Drawing: Normal Clock - 2 Three Word Recall: 1/3 words correct - 1 Total Score (0-5 Points): 3 Pain Assessment Pain Score: 0 - No pain History of Present Illness Bloody stool in early July, now resolved Decreased memory The patient is a 79-year-old male who presents for a routine visit. He reports experiencing hematochezia for 9 consecutive days, starting from 07/02/2024. The severity of the condition was moderate, with a single bowel movement per day. He is scheduled for a colonoscopy on 10/13/2024, but is uncertain about the necessity of the procedure as he was previously advised to return after a year. His last colonoscopy was performed by Dr. Trejo. He has not had a consultation with a household appliance mechanic in the past year. He also mentions frequent urination, both during the day and at night. He is currently on two medications for this issue. He has noticed some memory issues, such as difficulty recalling words during conversations and occasionally using incorrect names. Despite these challenges, he manages his own finances without any reported difficulties. He had a consultation with Dr. Bhatti in 2023. He maintains an active lifestyle, including regular exercise, and reports no issues with his knees or hips. He does not regularly see an internet sales director but reports no significant vision problems. Supplemental Information He is supposed to call Dr. Bedoya, a final rail cutter, on 11/30/2024. SUBJECTIVE: MEDICATIONS: Current Outpatient Medications Medication Instructions apixaban (Eliquis) 5 MG tablet 1 tablet, 2 times daily atorvastatin (LIPITOR) 20 mg, Oral, Daily finasteride (PROSCAR) 5 mg, Oral, Daily tamsulosin (FLOMAX) 0.4 mg, Oral, Daily triamterene-hydrochlorothiazide (Maxzide) 75-50 MG tablet 1 tablet, Daily RT ALLERGIES: No Known Allergies SURGICAL HISTORY: Past Surgical History: Procedure Laterality Date APPENDECTOMY 1967 BACK SURGERY 1985 CARDIAC ELECTROPHYSIOLOGY STUDY AND ABLATION 08/11/2022 CARDIOVERSION 2021 CATARACT EXTRACTION, BILATERAL 2018 CHOLECYSTECTOMY 2013 COLONOSCOPY W/ POLYPECTOMY 2013 HEMORRHOIDECTOMY 05/2019 FAMILY HISTORY: Family History Problem Relation Name Age of Onset Heart disease Mother Stroke Mother Coronary artery disease Mother SOCIAL HISTORY: Social History Tobacco Use Smoking status: Former Current packs/day: 0.00 Types: Cigarettes Quit date: 1998 Years since quittin.0 Smokeless tobacco: Never Substance Use Topics Alcohol use: Not Currently Drug use: Never Depression: Not at risk (08/17/2024) PHQ-2 PHQ-2 Score: 0 REVIEW OF SYMPTOMS: Review of Systems Respiratory: Negative. Cardiovascular: Negative. OBJECTIVE: Visit Vitals BP 128/76 (BP Location: Left arm, Patient Position: Sitting, BP Cuff Size: Large adult) Pulse 81 Resp 18 Ht 6' 1 Wt 194 lb SpO2 97% BMI 25.60 kg/m Smoking Status Former BSA 2.13 m Physical Exam Constitutional: Appearance: He is normal weight. HENT: Head: Normocephalic and atraumatic. Nose: Nose normal. No congestion. Mouth/Throat: Mouth: Mucous membranes are moist. Eyes: Extraocular Movements: Extraocular movements intact. Pupils: Pupils are equal, round, and reactive to light. Cardiovascular: Rate and Rhythm: Normal rate and regular rhythm. Pulmonary: Effort: Pulmonary effort is normal. No respiratory distress. Breath sounds: Normal breath sounds. No wheezing. Musculoskeletal: General: No swelling or deformity. Cervical back: Normal range of motion and neck supple. Right lower leg: No edema. Left lower leg: No edema. Skin: General: Skin is warm and dry. Findings: No rash. Neurological: General: No focal deficit present. Mental Status: He is alert and oriented to person, place, and time. Cranial Nerves: No cranial nerve deficit. Gait: Gait normal. Psychiatric: Mood and Affect: Mood normal. Behavior: Behavior normal. ASSESSMENT AND PLAN: Assessment/Plan Problem List Items Addressed This Visit Adenomatous polyp of transverse colon Managed by dr zaman Enlarged prostate Limited help with proscar and flomax will c/s urolgy Longstanding persistent atrial fibrillation (CMS/HCC) Managed by cardiology Overview Added automatically from request for surgery [id number] Meniere's disease of right ear stable Mixed hyperlipidemia (CMS/HCC) Relevant Orders Comprehensive metabolic panel CBC and differential Lipid panel Other Visit Diagnoses Routine general medical examination at a health care facility - Primary Benign prostatic hyperplasia, unspecified whether lower urinary tract symptoms present Relevant Orders Ambulatory referral to Urology PSA Memory changes Relevant Orders Ambulatory referral to Neurology TSH W/REFLEX TO FT4 Vitamin B12 Unspecified atrial fibrillation (CMS/HCC) As part of your medicare wellness visit , the medical team reviewed your chart and chronic problems and treatment. Your information regarding healthy diet, activity, immunizations, depression screening, advance directives , activities of daily living medications, cognitive screening and risk factors for disease were reviewed or addressed Assessment & Plan 1. Hematochezia. He reported experiencing bloody stools for 9 consecutive days. He is due for a colonoscopy in October [address] Trejo's office to schedule the procedure. 2. Urinary frequency. He experiences frequent urination during the day and night and is currently on two medications for this issue. A referral to a urologist will be made to evaluate the need for further intervention. 3. Memory issues. He has noticed changes in his memory, including difficulty recalling words and names. A referral to a neurologist, Dr. Byrne in [place], will be made to assess his memory concerns and discuss potential treatment options. 4. Health maintenance. His blood pressure is well-regulated. Blood work will be conducted today. He is advised to continue his current healthy habits. Follow-up The patient will follow up in 6 months, or earlier if any complications arise. PROCEDURE Colonoscopy performed by Dr. Trejo. documented in this encounter [facility] 07-31-2024 Telephone encounter Note Approvals with refills [facility] 07-31-2024 Miscellaneous Notes Approvals with refills 90 day supply documented in this encounter [facility] 07-31-2024 Telephone encounter Note 90 day supply [facility] 04-12-2024 Telephone encounter Note Approvals with refills [facility] 04-12-2024 Miscellaneous Notes Approvals with refills documented in this encounter [facility] 11-16-2023 History of Present illness Narrative Singh Bowman Date of visit: 11/16/2023 Date of : 1945 Age: 78 y.o. Patient Active Problem List Diagnosis Rectal bleeding Hx of adenomatous colonic polyps Adenomatous polyp of transverse colon Paroxysmal atrial fibrillation (CMS-HCC) Mixed hyperlipidemia Shortness of breath Longstanding persistent atrial fibrillation (CMS-HCC) No Known Allergies Current Outpatient Medications Medication Sig Dispense Refill apixaban (ELIQUIS) 5 mg tablet TAKE 1 TABLET BY MOUTH TWICE A DAY 60 tablet 1 atorvastatin (LIPITOR) 20 mg tablet Take 1 tablet (20 mg total) by mouth in the morning. finasteride (PROSCAR) 5 mg tablet Take 1 tablet (5 mg total) by mouth in the morning. tamsulosin (FLOMAX) 0.4 mg capsule Take 1 capsule (0.4 mg total) by mouth nightly. triamterene-hydroCHLOROthiazid (MAXZIDE) 75-50 mg per tablet Take 1 tablet by mouth in the morning. 30 tablet 11 No current facility-administered medications for this visit. Chief Complaint Patient presents with Follow-up 1 YR FU L/S JZL NO TESTS SCHED W/ PRE OP ORAL SURGERY NOT YET SCHEDULED FORM SCANNED TO MEDIA Pre-op Exam History of Present Illness Mr. Bowman is a 78M w/ PMH Meniere s disease, HTN, long-standing persistent AF w/ [id number] 3 on apixaban 5 mg BID, s/p cryoballoon PVI and RF ablation of the RSPV with me 08/11/22 who presents to EP clinic at [place] for preoperative evaluation for dental work which he had completed 11/01/23. He was last seen by me 11/17/22 when he remained in NSR off of amiodarone, which was discontinued due to his use of Maxzide for Meniere s disease. Patient presented the appointment by himself today. EKG demonstrates normal sinus rhythm, heart rate 75 beats per minute, UT interval 160 millisecond QRS 90 millisecond QTC 394 millisecond. He has been doing very well since her ablation, no subjective complaints today. Confirmed that he had teeth extracted on 11/01/2023. Past Medical History: Diagnosis Date Angina pectoris ([facility]-HCC) Atrial fibrillation ([facility]) Back pain Benign prostatic hyperplasia Cataracts, bilateral Colon polyps GERD (gastroesophageal reflux disease) Hemorrhoids Hyperlipidemia Meniere disease 06/2022 Peripheral angiopathy in diseases classified elsewhere ([facility]-HCC) No data recorded No data recorded No data recorded Past Surgical History: Procedure Laterality Date Afib Ablation with PARTH-NEL, CRYO, ICE N/A 08/11/2022 Performed by Emiliano Alaniz MD at [facility] (EP) APPENDECTOMY 1967 BACK SURGERY 1986 CHOLECYSTECTOMY 09/26/2013 COLONOSCOPY 08/14/2010 COLONOSCOPY 10/16/2012 COLONOSCOPY 10/20/2015 COLONOSCOPY N/A 08/31/2019 Performed by Jed Worthington MD at [facility] COLONOSCOPY DIAGNOSTIC / SCREENING N/A 10/14/2023 Performed by Javier Zaman MD at [facility] EYE SURGERY 2018 PHACO KELMAN I IMPLANT INTRAOCULAR LENS Right 05/09/2018 Performed by Aracelis Auguste MD at [facility] PHACO KELMAN I IMPLANT INTRAOCULAR LENS Left 04/25/2018 Performed by Aracelis Auguste MD at [facility] SKIN BIOPSY 2008 TONSILLECTOMY 1952 Family History Problem Relation Age of Onset Stroke Mother Heart disease Mother Stroke Father Colon cancer Sister Breast cancer Sister Social History Socioeconomic History Marital status: Spouse name: Not on file Number of children: Not on file Years of education: Not on file Highest education level: Not on file Occupational History Not on file Tobacco Use Smoking status: Former Current packs/day: 0.00 Average packs/day: 1 pack/day for 20.0 years (20.0 ttl pk-yrs) Types: Cigarettes Start date: 1978 Quit date: 1998 Years since quittin.2 Smokeless tobacco: Never Vaping Use Vaping status: Never Used Substance and Sexual Activity Alcohol use: Yes Comment: not very often Drug use: No Sexual activity: Defer Other Topics Concern Caffeine Use Yes Comment: VERY LITTLE Social History Narrative Not on file Social Determinants of Health Financial Resource Strain: Low Risk (01/25/2023) Received from [facility] Overall Financial Resource Strain (CARDIA) Difficulty of Paying Living Expenses: Not hard at all Food Insecurity: No Food Insecurity (11/16/2023) Hunger Screening Food Insecurity - Worry: Never True Food Insecurity - Inability: Never True Transportation Needs: No Transportation Needs (01/25/2023) Received from [facility] PRAPARE - Transportation Lack of Transportation (Medical): No Lack of Transportation (Non-Medical): No Physical Activity: Sufficiently Active (01/25/2023) Received from [facility] Exercise Vital Sign Days of Exercise per Week: 5 days Minutes of Exercise per Session: 60 min Stress: No Stress Concern Present (01/25/2023) Received from [facility] [place] of Occupational Health - Occupational Stress Questionnaire Feeling of Stress : Not at all Social Connections: Moderately Isolated (01/25/2023) Received from [facility] Social Connection and Isolation Panel [NHANES] Frequency of Communication with Friends and Family: More than three times a week Frequency of Social Gatherings with Friends and Family: More than three times a week Attends Voodoo Services: Never Active Member of Clubs or Organizations: No Attends Club or Organization Meetings: Never Marital Status: Interpersonal Safety: Not At Risk (01/25/2023) [facility] Humiliation, Afraid, Rape, and Kick questionnaire Fear of Current or Ex-Partner: No Emotionally Abused: No Physically Abused: No Sexually Abused: No Housing Instability: Low Risk (01/25/2023) [facility] Housing Stability Vital Sign Unable to Pay for Housing in the Last Year: No Number of Places Lived in the Last Year: 1 In the last 12 months, was there a time when you did not have a steady place to sleep or slept in a snf (including now)?: No Review of Systems Review of Systems Constitutional: Negative. HENT: Negative. Eyes: Negative. Cardiovascular: Negative. Respiratory: Negative. Endocrine: Negative. Hematologic/Lymphatic: Bruises/bleeds easily. Skin: Negative. Musculoskeletal: Negative. Gastrointestinal: Negative. Genitourinary: Negative. Neurological: Positive for loss of balance. Psychiatric/Behavioral: Negative. Allergic/Immunologic: Negative. Vascular: Negative. CARDIOVASCULAR: Please review HPI. Physical Examination General appearance: Alert, oriented and cooperative. In no acute distress. Skin: Warm and dry to touch. Head: Normocephalic, without obvious abnormality, atraumatic. Ears, Nose, Mouth, Throat: Throat clear without erythema or exudate. Dentition intact. Eyes: Conjunctivae unremarkable, EOM intact. Neck: No JVD, No carotid bruit. Neck supple, trachea midline. Respiratory: Clear to auscultation bilaterally, no use of accessory muscles. Cardiovascular: RRR with normal S1 and S2 with no murmurs. Gastrointestinal: Soft, non-tender. Bowel sounds normal. Musculoskeletal: No peripheral edema. Neurologic: Oriented to time, person and place, affect appropriate. No focal/major motor defects noted. Psychiatric: Appropriate mood, memory and judgement. VITAL SIGNS: BP 126/80 (BP Site: Left Arm, BP Postition: Sitting) Pulse 84 Ht 185.4 cm (6' 1 ) Wt 90.7 kg (200 lb) SpO2 96% BMI 26.39 kg/m No orders of the defined types were placed in this encounter. There are no discontinued medications. IMPRESSIONS/PLAN 1. Paroxysmal atrial fibrillation (CMS-HCC) - POCT EKG Longstanding persistent atrial fibrillation: CHADS2 Vasc 3 on apixaban 5 mg b.i.d., cryoballoon PVI and RF RSPV 08/11/2022. Continues to remain in normal sinus rhythm off of all antiarrhythmic therapy. Doing very well from a rhythm perspective. Given more than a year out from ablation with no recurrent atrial fibrillation, okay to follow-up with EP on an as-needed basis. I did discuss need for continued long-term anticoagulation given his CHADS2 Vasc score of 3. He is not currently a Watchman candidate, tolerating blood thinners without any issues. Return visit as needed TODAYS ORDERS Orders Placed This Encounter Procedures POCT EKG FOLLOW UP No follow-ups on file. PCP: Mary Grace Rashid MD Referring Physician: Mary Grace Rashid MD [id number] [place] [address] documented in this encounter [facility] 10-24-2023 Miscellaneous Notes ----- Message from Javier Zaman MD sent at 10/21/2023 1:18 PM EDT ----- Regarding: Pathology Please let patient know polyp removed was benign sessile serrated polyp with low-grade dysplasia, this is precancerous. I recommend repeat colonoscopy in 1 year. Thank you ----- Message ----- From: Interface - Lab Results/Orders In Sent: 10/18/2023 2:19 PM EDT To: Javier Zaman MD Spoke with patient regarding pathology results. Patient verbally understood with no further questions. Recall will be put in chart. documented in this encounter [facility] 10-24-2023 Telephone encounter Note ----- Message from Javier Zaman MD sent at 10/21/2023 1:18 PM EDT ----- Regarding: Pathology Please let patient know polyp removed was benign sessile serrated polyp with low-grade dysplasia, this is precancerous. I recommend repeat colonoscopy in 1 year. Thank you ----- Message ----- From: Interface - Lab Results/Orders In Sent: 10/18/2023 2:19 PM EDT To: Javier Zaman MD [facility] 10-24-2023 Telephone encounter Note Spoke with patient regarding pathology results. Patient verbally understood with no further questions. Recall will be put in chart. [facility] 10-20-2023 Miscellaneous Notes Received fax from [facility] oral surgery- Dr. Grier. Pt having 2 teeth extracted 11/01/23. Would like to hold EliAudioCompass x 2 days. Pt last saw Dr. Alaniz. 11/17/22. Next scheduled appt 11/16/23 Workflow Developer called spoke w/ pt. Verified that only 2 teeth are being pulled. Denies ever having a stroke or any DVT/P.Emboli. Will message Dr. Alaniz for advice Okay to hold apixaban for 2 days prior to procedure. Resume as soon as deemed safe by the proceduralist Note created and faxed Pt. Notified documented in this encounter [facility] 10-20-2023 Telephone encounter Note Received fax from [facility] oral surgery- Dr. Grier. Pt having 2 teeth extracted 11/01/23. Would like to hold Eliquis x 2 days. Pt last saw Dr. Alaniz. 11/17/22. Next scheduled appt 11/16/23 Workflow Developer called spoke w/ pt. Verified that only 2 teeth are being pulled. Denies ever having a stroke or any DVT/P.Emboli. Will message Dr. Alaniz for advice [facility] 10-20-2023 Telephone encounter Note Okay to hold apixaban for 2 days prior to procedure. Resume as soon as deemed safe by the proceduralist [facility] Work Phone: 10-20-2023 Telephone encounter Note Note created and faxed Pt. Notified [facility] 10-06-2023 Nurse Note Preoperative Education Checklist- General Surgery date: 10/14/23 Surgery time: 10a Arrival time: 8a 1. Bring a photo ID and your insurance card with you the day of surgery. You will check in at the main lobby of the [facility]- registration desk is straight ahead as soon as you walk in. Tell them you are here for surgery. 2. If you have a Living Will/Durable Power of Public Health Microbiologist for Health Care that is not on file here, please bring a copy the day of surgery. 3. Please shower/bathe the night before surgery with the provided soap or wipes. Do not shower the morning of surgery- you will do use wipes when you arrive here at the hospital before getting into your surgical gown. Do not shave the area of your procedure for 2 days prior to your surgery. 4. NO powder, lotion, perfume/cologne, aftershave, make-up, deodorant, or hair products after you have bathed. 5. NO nail mozambican/acrylic on at least one finger. If you are having a hand, wrist or foot surgery then all nail mozambican and artificial/acrylic nails must be removed from that hand or foot. 6. Avoid ALL Aspirin and non-steroidal anti-inflammatory drugs and certain vitamins (Ibuprofen, Advil, Aleve, Excedrin, Meloxicam, Celebrex, fish/krill oil, etc.) for 7 days prior to surgery as instructed by your surgeon and/or your prescribing doctor. Tylenol IS ALLOWED. If you are on Ticlid, Xarelto, Eliquis, Pradaxa, Plavix or Coumadin, please check with your prescribing doctor for instructions for when to stop them. 7. If you use an inhaler, continue to use it routinely. 8. Nothing to eat or drink (not even water, gum, mints, or hard candy!) AFTER midnight prior to your surgery. 9. Take only medications that you are instructed to on the morning of surgery with a TINY SIP OF WATER. 10. Choose a responsible adult that will be able to drive you home when you are discharged from your hospital stay for your surgery and can stay with you in your home for 24 hours after your procedure. You must NOT drive any vehicle or operate any machinery for 24 hours after surgery. 11. When you dress for your appointment, please wear loose fitting clothing that is appropriate to accommodate your surgical area procedure. BRING WITH YOU ANY DEVICES YOU MAY NEED: FUNMI hose, ice machine, sling/swath, brace or special shoe, oversized zip-up or button up shirt, CPAP machine if staying overnight. 12. Do NOT wear jewelry, watches, or any piercings or metal for surgery- leave these valuables and money at home. 13. Do NOT wear contact lenses for surgery- glasses are okay if needed. 14. The anesthesiologist will talk with you the day of surgery and will ask you to sign a Consent Form. 15. Refrain from smoking or any type of tobacco use for at least 8 hours and marijuana for 24 hours prior to arrival for your surgery. 16. If a GREEN BLOOD band is given to you, please bring it with you for the day of surgery. 17. Notify your surgeon if you develop any illness before your surgery. 18. If you are staying overnight, please DO NOT BRING your home medications with you. 19. If you have any questions prior to surgery, please call the Preadmission Testing office at [phone], Mon.-Fri. 7 a.m.-3 p.m. Leave a voicemail if needed. Pre-Surgery Instructions: Medication Instructions apixaban (ELIQUIS) 5 mg tablet Check with prescribing doctor for instructions atorvastatin (LIPITOR) 20 mg tablet Stop taking 0 days prior to procedure finasteride (PROSCAR) 5 mg tablet Stop taking 0 days prior to procedure tamsulosin (FLOMAX) 0.4 mg capsule Stop taking 0 days prior to procedure triamterene-hydroCHLOROthiazid (MAXZIDE) 75-50 mg per tablet Take morning of procedure [facility] 10-06-2023 Miscellaneous Notes Preoperative Education Checklist- General Surgery date: 10/14/23 Surgery time: 10a Arrival time: 8a 1. Bring a photo ID and your insurance card with you the day of surgery. You will check in at the main lobby of the [facility]- registration desk is straight ahead as soon as you walk in. Tell them you are here for surgery. 2. If you have a Living Will/Durable Power of Public Health Microbiologist for Health Care that is not on file here, please bring a copy the day of surgery. 3. Please shower/bathe the night before surgery with the provided soap or wipes. Do not shower the morning of surgery- you will do use wipes when you arrive here at the hospital before getting into your surgical gown. Do not shave the area of your procedure for 2 days prior to your surgery. 4. NO powder, lotion, perfume/cologne, aftershave, make-up, deodorant, or hair products after you have bathed. 5. NO nail mozambican/acrylic on at least one finger. If you are having a hand, wrist or foot surgery then all nail mozambican and artificial/acrylic nails must be removed from that hand or foot. 6. Avoid ALL Aspirin and non-steroidal anti-inflammatory drugs and certain vitamins (Ibuprofen, Advil, Aleve, Excedrin, Meloxicam, Celebrex, fish/krill oil, etc.) for 7 days prior to surgery as instructed by your surgeon and/or your prescribing doctor. Tylenol IS ALLOWED. If you are on Ticlid, Xarelto, Eliquis, Pradaxa, Plavix or Coumadin, please check with your prescribing doctor for instructions for when to stop them. 7. If you use an inhaler, continue to use it routinely. 8. Nothing to eat or drink (not even water, gum, mints, or hard candy!) AFTER midnight prior to your surgery. 9. Take only medications that you are instructed to on the morning of surgery with a TINY SIP OF WATER. 10. Choose a responsible adult that will be able to drive you home when you are discharged from your hospital stay for your surgery and can stay with you in your home for 24 hours after your procedure. You must NOT drive any vehicle or operate any machinery for 24 hours after surgery. 11. When you dress for your appointment, please wear loose fitting clothing that is appropriate to accommodate your surgical area procedure. BRING WITH YOU ANY DEVICES YOU MAY NEED: FUNMI hose, ice machine, sling/swath, brace or special shoe, oversized zip-up or button up shirt, CPAP machine if staying overnight. 12. Do NOT wear jewelry, watches, or any piercings or metal for surgery- leave these valuables and money at home. 13. Do NOT wear contact lenses for surgery- glasses are okay if needed. 14. The anesthesiologist will talk with you the day of surgery and will ask you to sign a Consent Form. 15. Refrain from smoking or any type of tobacco use for at least 8 hours and marijuana for 24 hours prior to arrival for your surgery. 16. If a GREEN BLOOD band is given to you, please bring it with you for the day of surgery. 17. Notify your surgeon if you develop any illness before your surgery. 18. If you are staying overnight, please DO NOT BRING your home medications with you. 19. If you have any questions prior to surgery, please call the Preadmission Testing office at [phone], Mon.-Fri. 7 a.m.-3 p.m. Leave a voicemail if needed. Pre-Surgery Instructions: Medication Instructions apixaban (ELIQUIS) 5 mg tablet Check with prescribing doctor for instructions atorvastatin (LIPITOR) 20 mg tablet Stop taking 0 days prior to procedure finasteride (PROSCAR) 5 mg tablet Stop taking 0 days prior to procedure tamsulosin (FLOMAX) 0.4 mg capsule Stop taking 0 days prior to procedure triamterene-hydroCHLOROthiazid (MAXZIDE) 75-50 mg per tablet Take morning of procedure documented in this encounter [facility] 09-22-2023 Miscellaneous Notes For further refills, pt needs to complete labs as ordered. Letter sent to [employer]. Last ov 11/17/22 Cbc/cmp 06/15/22 documented in this encounter [facility] 09-22-2023 Telephone encounter Note For further refills, pt needs to complete labs as ordered. Letter sent to [employer]. Last ov 11/17/22 Cbc/cmp 06/15/22 [facility] 09-06-2023 History of Present illness Narrative Images from the original note were not included. Chief Complaint: History of colon polyps History of Present Illness Singh Bowman is a 78 y.o. male who presents to the office for colonoscopy. His last colonoscopy was in [address] Worthington, significant for tubular adenoma and hyperplastic polyp. It was recommended he follow-up in 3 years for surveillance. He reports occasional hematochezia with straining and constipation. He denies any diarrhea, abdominal pain, melena, unexplained weight loss. There is a family history of colon cancer in his sister. He has a history of atrial fibrillation and is on Eliquis daily. He denies chest pain and shortness of breath. Review of Systems Constitutional: Negative for fever and unexpected weight change. HENT: Negative for trouble swallowing. Respiratory: Negative for shortness of breath. Cardiovascular: Negative for chest pain. Gastrointestinal: Positive for constipation and blood in stool. Negative for nausea, vomiting, abdominal pain, diarrhea and black tarry stool. Genitourinary: Positive for urgency. Negative for dysuria and difficulty urinating. BPH Musculoskeletal: Negative for gait problem. Skin: Negative for rash and wound. Neurological: Negative for dizziness, weakness and light-headedness. Hematological: Does not bruise/bleed easily. Psychiatric/Behavioral: Negative for confusion. Past Medical History: Diagnosis Date Angina pectoris (CMS-HCC) Atrial fibrillation (CMS-HCC) Back pain Benign prostatic hyperplasia Cataracts, bilateral Colon polyps GERD (gastroesophageal reflux disease) Hemorrhoids Hyperlipidemia Meniere disease 06/2022 Peripheral angiopathy in diseases classified elsewhere (CMS-HCC) Past Surgical History: Procedure Laterality Date Afib Ablation with PARTH-NEL, CRYO, ICE N/A 08/11/2022 Performed by Emiliano Alaniz MD at [facility] (EP) APPENDECTOMY 1967 BACK SURGERY 1986 CHOLECYSTECTOMY 09/26/2013 COLONOSCOPY 08/14/2010 COLONOSCOPY 10/16/2012 COLONOSCOPY 10/20/2015 COLONOSCOPY N/A 08/31/2019 Performed by Jed Worthington MD at [facility] EYE SURGERY 2017 PHACO KELMAN I IMPLANT INTRAOCULAR LENS Right 05/09/2018 Performed by Aracelis Auguste MD at [facility] PHACO KELMAN I IMPLANT INTRAOCULAR LENS Left 04/25/2018 Performed by Aracelis Auguste MD at [facility] SKIN BIOPSY 2008 TONSILLECTOMY 1952 No Known Allergies Current Outpatient Medications: acetaminophen 500 mg capsule, 2 tablet, Disp: , Rfl: apixaban (ELIQUIS) 5 mg tablet, TAKE ONE TABLET BY MOUTH TWICE A DAY, Disp: 60 tablet, Rfl: 2 atorvastatin (LIPITOR) 20 mg tablet, Take 1 tablet (20 mg total) by mouth in the morning., Disp: , Rfl: finasteride (PROSCAR) 5 mg tablet, Take 1 tablet (5 mg total) by mouth in the morning., Disp: , Rfl: tamsulosin (FLOMAX) 0.4 mg capsule, Take 1 capsule (0.4 mg total) by mouth nightly., Disp: , Rfl: triamterene-hydroCHLOROthiazid (MAXZIDE) 75-50 mg per tablet, Take 1 tablet by mouth in the morning., Disp: 30 tablet, Rfl: 11 Social History Socioeconomic History Marital status: Spouse name: Not on file Number of children: Not on file Years of education: Not on file Highest education level: Not on file Occupational History Not on file Tobacco Use Smoking status: Former Packs/day: 1.00 Years: 20.00 Additional pack years: 0.00 Total pack years: 20.00 Types: Cigarettes Quit date: 1998 Years since quittin.0 Smokeless tobacco: Never Vaping Use Vaping Use: Never used Substance and Sexual Activity Alcohol use: Yes Comment: not very often Drug use: No Sexual activity: Defer Other Topics Concern Caffeine Use Yes Comment: VERY LITTLE Social History Narrative Not on file Social Determinants of Health Financial Resource Strain: Not on file Food Insecurity: No Food Insecurity (11/17/2022) Hunger Screening Food Insecurity - Worry: Never True Food Insecurity - Inability: Never True Transportation Needs: Not on file Physical Activity: Not on file Stress: Not on file Social Connections: Not on file Interpersonal Safety: Not on file Housing Instability: Not on file Family History Problem Relation Age of Onset Stroke Mother Heart disease Mother Stroke Father Colon cancer Sister Breast cancer Sister Objective Physical Exam Constitutional: General: He is not in acute distress. Appearance: Normal appearance. He is not ill-appearing. HENT: Head: Normocephalic and atraumatic. Mouth/Throat: Mouth: Mucous membranes are moist. Eyes: Pupils: Pupils are equal, round, and reactive to light. Cardiovascular: Rate and Rhythm: Normal rate and regular rhythm. Pulmonary: Effort: Pulmonary effort is normal. No respiratory distress. Abdominal: General: Bowel sounds are normal. There is no distension. Palpations: Abdomen is soft. Tenderness: There is no abdominal tenderness. Musculoskeletal: General: Normal range of motion. Skin: General: Skin is warm and dry. Neurological: Mental Status: He is alert and oriented to person, place, and time. Mental status is at baseline. Vital Signs: Blood pressure 130/80, weight 90.6 kg (199 lb 12.8 oz). Respiratory Source: No data recorded Admission Weight: Weight: 90.6 kg (199 lb 12.8 oz) Labs Lab Results Component Value Date WBC 6.4 08/04/2022 HGB 15.0 08/04/2022 HCT 46.0 08/04/2022 MCV 92 08/04/2022 PLT 206 08/04/2022 Lab Results Component Value Date GLU 92 08/04/2022 CALCIUM 8.7 08/04/2022 K 4.2 08/04/2022 CO2 28 08/04/2022 CL 106 08/04/2022 BUN 13 08/04/2022 CREATININE 1.27 08/04/2022 No results found for: AMYLASE No results found for: LIPASE Lab Results Component Value Date ALT 12 06/15/2022 AST 14 06/15/2022 ALKPHOS 100 06/15/2022 No results found for: INR , PROTIME Assessment Personal history of colon polyps Family history of colon cancer in sister Plan Colonoscopy with possible biopsy and/or polypectomy. Risks, benefits, and alternatives discussed with patient. Educated on bowel evacuation preparation. Patient verbalizes understanding and wishes to proceed. Stop Eliquis 2 days prior to the procedure. Evaluation included: Preparing to see the patient (e.g., review of tests) Obtaining and/or reviewing separately obtained history Performing a medically appropriate examination and/or evaluation Counseling and educating the patient/family/caregiver Referring and communicating with other health care assistant History of colon polyps [Z86.010] PEDRO SULLIVAN [facility] General Surgery [place] This note was created with the assistance of a speech recognition program. While intending to generate a timely document that accurately reflects the content of the visit, no guarantee can be provided that every grammatical or spelling mistake has been or will be identified or corrected. Thank you for your understanding. PEDRO Sullivan 09/06/23 0940 documented in this encounter [facility] 08-18-2023 Miscellaneous Notes Called Singh regarding the screening colonoscopy referral that our office received from Dr. Rashid, I left a message on his machine to call the office back to schedule an appointment. Singh called the office back and scheduled an appointment in regard to the colonoscopy referral. documented in this encounter [facility] 08-18-2023 Telephone encounter Note Called Singh regarding the screening colonoscopy referral that our office received from Dr. Rashid, I left a message on his machine to call the office back to schedule an appointment. [facility] 08-18-2023 Telephone encounter Note Singh called the office back and scheduled an appointment in regard to the colonoscopy referral. [facility] Evaluation + Plan note Future Appointments Appointment Date:09/11/2024 02:00:00 PM Scheduled Provider:Mdeina BUTLER MD Location:[facility] Appointment Type:URO Procedure 15 min [facility] Evaluation + Plan note Future Appointments Appointment Date:11/05/2024 09:00:00 AM Scheduled Provider: Location:[facility] Appointment Type:URO Nurse Visit Appointment Date:11/16/2024 10:45:00 AM Scheduled Provider:Medina BUTLER MD Location:[facility] Appointment Type:URO Office Visit [facility] Evaluation note Diagnosis Enlarged prostate Hypertrophy of prostate without urinary obstruction and other lower urinary tract symptoms (LUTS) [facility] Diagnosis Mixed hyperlipidemia (CMS/HCC) Mixed hyperlipidemia [facility] Diagnosis Routine general medical examination at a health care facility- Primary Longstanding persistent atrial fibrillation (CMS/HCC) Mixed hyperlipidemia (CMS/HCC) Mixed hyperlipidemia Meniere's disease of right ear Benign prostatic hyperplasia, unspecified whether lower urinary tract symptoms present Enlarged prostate Hypertrophy of prostate without urinary obstruction and other lower urinary tract symptoms (LUTS) Adenomatous polyp of transverse colon Memory changes Unspecified atrial fibrillation (CMS/HCC) [facility] Diagnosis Hyperthyroidism (CMS/HCC)- Primary Thyrotoxicosis without mention of goiter or other cause, without mention of thyrotoxic crisis or storm [facility]* Diagnosis Hyperthyroidism (CMS/HCC)- Primary Thyrotoxicosis without mention of goiter or other cause, without mention of thyrotoxic crisis or storm [facility]* Diagnosis Multinodular goiter (CMS/HCC)- Primary Nontoxic multinodular goiter Hyperthyroidism (CMS/HCC) Thyrotoxicosis without mention of goiter or other cause, without mention of thyrotoxic crisis or storm Chronic atrial fibrillation (HCC) (CMS/HCC) Atrial fibrillation [facility] Diagnosis Hyperthyroidism (CMS/HCC)- Primary Thyrotoxicosis without mention of goiter or other cause, without mention of thyrotoxic crisis or storm Multinodular goiter (CMS/HCC) Nontoxic multinodular goiter Chronic atrial fibrillation (HCC) (CMS/HCC) Atrial fibrillation [facility] Diagnosis History of colon polyps- Primary Family history of malignant neoplasm of colon Hematochezia Blood in stool [facility] Diagnosis Paroxysmal atrial fibrillation (CMS-HCC)- Primary Atrial fibrillation [facility] Diagnosis Moderate late onset Alzheimer's dementia, unspecified whether behavioral, psychotic, or mood disturbance or anxiety (CMS/HCC)- Primary Memory changes [facility]* Diagnosis Longstanding persistent atrial fibrillation (CMS-HCC)- Primary Pre-op evaluation [facility] Narr[facility] No data available for this section [facility] InstructionsNot on filedocumented in this encounter [facility] filedocumented in [facility] filedocumented in this [facility] filedocumented in this [facility] filedocumented in this [facility] filedocumented in this [facility] filedocumented in this [facility] No data available for this section [facility] reason for visit Narrative* Consultation (Routine) - Closed Specialty Diagnoses / Procedures Referred By Maggie christie Referred To Contact Neurology Diagnoses Memory changes Procedures UT OFFICE/OUTPATIENT NEW HIGH MDM 60 MINUTES Mary Grace Rashid MD [address] [place] [address] Phone: tel: fax: David Byrne DO [address] [place] [id number] Phone: tel: fax: Referral ID Status Reason Start Date Expiration Date V isits Requested Visits Authorized [id number] Closed Consult and Treat 08/17/2024 02/13/2025 1 1 [facility] Summary Purpose Family History No Family History Records Found No data available for this section No data available for this section No Family History Records FoundNo Family History Records FoundNo Family History Records Found Advance Directives No Advanced Directives Records FoundNo Advanced Directives Records FoundNo Advanced Directives Records FoundNo Advanced Directives Records Found Additional Source Comments (unrecognized sect ion and content) No Status Records FoundNo Status Records FoundNo Status Records FoundNo Status Records Found INFORMATION SOURCE (unrecogn ized section and content) DATE CREATED AUTHOR 11/17/2023 [facility] DATE CREATED AUTHOR AUTHOR'S ORGANIZ ATION 09/13/2024 [facility] DATE CREATED AUTHOR AUTHOR'S ORGANIZ ATION 10/22/2024 [facility] DATE CREATED AUTHOR AUTHOR'S ORGANIZ ATION 10/24/[address] [facility] dical Specialists [facility] Care Teams (unrecognized sec tion and content) Grinding Wheel Dresser Relationship Specialty Start Date End Date Michell France NP [address] [place] [address] PCP - ACO Reach 12/30/22 Mary Grace Rashid MD [address] [place] [address] PCP - General Family Medicine 01/25/23 [employer]inding Wheel Dresser Relationship Specialty Start Date End Date Michell France NP PCP - ACO Reach 12/30/22 Mary Grace Rashid MD [address] [place] [address] PCP - General Family Medicine 01/25/23 Grinding Wheel Dresser Relationship Specialty Start Date End Date Michell France NP PCP - ACO Reach 12/30/22 Mary Grace Rashid MD [address] [place] [address] PCP - General Family Medicine 01/25/23 Grinding Wheel Dresser Relationship Specialty Start Date End Date Michell France NP PCP - ACO Reach 12/30/22 Mary Grace Rashid MD [address] [place] [address] PCP - General Family Medicine 01/25/23 Grinding Wheel Dresser Relationship Specialty Start Date End Date Michell France NP PCP - ACO Reach 12/30/22 Mary Grace Rashid MD [address] [place] [address] PCP - General Family Medicine 01/25/23 Grinding Wheel Dresser Relationship Specialty Start Date End Date Michell France NP PCP - ACO Reach 12/30/22 Mary Grace Rashid MD [address] [place] [address] PCP - General Family Medicine 01/25/23 Grinding Wheel Dresser Relationship Specialty Start Date End Date Michell France NP PCP - ACO Reach 12/30/22 Mary Grace Rashid MD [address] [place] [address] PCP - General Family Medicine 01/25/23 Brooks Jeffery, [facility] [address] [place] [address] Licensed Practical Nurse Family Medicine 08/22/24 Grinding Wheel Dresser Relationship Specialty Start Date End Date Michell France NP PCP - ACO Reach 12/30/22 Mary Grace Rashid MD [address] [facility] [place] [address] PCP - General Family Medicine 01/25/23 Brooks Jeffery, [employer]FFIC ENUM[employer]ATOR [address] [address] Licensed Practical Nurse Family Medicine 08/22/24 Grinding Wheel Dresser Relationship Specialty Start Date End Date Mary Grace Rashid MD [address] [facility] [place] [address] PCP - General Family Medicine 05/09/17 Grinding Wheel Dresser Relationship Specialty Start Date End Date Mary Grace Rashid MD [address] [place] [address] PCP - General Family Medicine 05/09/17 Grinding Wheel Dresser Relationship Specialty Start Date End Date Mary Grace Rashid MD [address] [place] [address] PCP - General Family Medicine 01/25/23 Mary Grace Rashid MD [address] [place] [address] PCP - ACO Reach 09/14/24 Brooks Jeffery, TRAFFIC ENUMERATOR [address] [place] [address] Licensed Practical Nurse Family Medicine 08/22/24 Grinding Wheel Dresser Relationship Specialty Start Date End Date Mary Grace Rashid MD [address] [place] [address] PCP - General Family Medicine 01/25/23 Mary Grace Rashid MD [address] [place] [address] PCP - ACO Reach 09/14/24 Brooks Jeffery, TRAFFIC ENUMERATOR [address] [address] Licensed Practical Nurse Family Medicine 08/22/24 Grinding Wheel Dresser Relationship Specialty Start Date End Date Mary Grace Rashid MD [address] [place] [place] [address] PCP - General Family Medicine 05/09/17 Grinding Wheel Dresser Relationship Specialty Start Date End Date Mary Grace Rashid MD [address] [place] [address] PCP - General Family Medicine 05/09/17 Grinding Wheel Dresser Relationship Specialty Start Date End Date Mary Grace Rashid MD [address] [place] [address] PCP - General Family Medicine 05/09/17 Grinding Wheel Dresser Relationship Specialty Start Date End Date Mary Grace Rashid MD [address] [place] [address] PCP - General Family Medicine 01/25/23 Mary Grace Rashid MD [address] [place] [address] PCP - ACO Reach 09/14/24 Brooks Jeffery, TRAFFIC ENUMERATOR [address] [place] [address] Licensed Practical Nurse Family Medicine 08/22/24 Grinding Wheel Dresser Relationship Specialty Start Date End Date Mary Grace Rashid MD [address] [place] [address] PCP - General Family Medicine 01/25/23 Mary Grace Rashid MD [address] [place] [address] PCP - ACO Reach 09/14/24 Brooks Jeffery, TRAFFIC ENUMERATOR [address] [place] [address], [place] [address] Licensed Practical Nurse Family Medicine 08/22/24 Grinding Wheel Dresser Relationship Specialty Start Date End Date Mary Grace Rashid MD [address] [place] [address] PCP - General Family Medicine 01/25/23 Mary Grace Rashid MD [address] [place] [address] PCP - ACO Reach 09/14/24 Brooks Jeffery, TRAFFIC ENUMERATOR [address] [place] [address] Licensed Practical Nurse Family Medicine 08/22/24 Grinding Wheel Dresser Relationship Specialty Start Date End Date Mary Grace Rashid MD [address] [place] [address] PCP - General Family Medicine 01/25/23 Mary Grace Rashid MD [address] [place] [address] PCP - ACO Reach 09/14/24 Brooks Jeffery TRAFFIC ENUMERATOR [address] [facility] [address] [place] [id number] Licensed Practical Nurse Family Medicine 08/22/24 Grinding Wheel Dresser Relationship Specialty Start Date End Date Mary Grace Rashid MD PCP - General Family Medicine 05/09/17 Grinding Wheel Dresser Relationship Specialty Start Date End Date Mary Grace Rashid MD PCP - General Family Medicine 05/09/17 Reason for Visit (unrecogniz ed section and content) Reason Comments Medicare Annual Wellness Visit Subsequen t Reason Comments Thyroid Problem Specialty Diagnoses / Procedures Referred By Contac t Referred To Contact Endocrinology Diagnoses Hyperthyroidism (CMS/HCC) Procedures UT OFFICE/OUTPATIENT [facility] 60 MINUTES Mary Grace Rashid MD [address] [place] [address] Phone: tel: fax: Shikha Rowell MD [address] [place] [address] [address] [place] [address] Phone: tel: fax: Referral ID Status Reason Start Date Expiration Date V isits Requested Visits Authorized [id number] Closed Specialty Services Required 08/19/2024 02/15/2025 1 1 Reason Onset Date Comments Med Refill 12/12/2023 Reason Comments Thyroid Problem Follow-up LAB Reason Comments Colon Cancer Screening 3 year recall, la st colon 08/31/19 Reason Comments Med Refill Reason Onset Date Comments Holding eliquis 10/20/2023 Reason Comments Follow-up 1 YR FU L/S JZL NO T ESTS SCHED W/ PRE OP ORAL SURGERY NOT YET SCHEDULED FORM SCANNED TO MEDIA Pre-op Exam Reason Onset Date Comments Medication Problem 10/09/2024 Reason Comments New Patient Atrial Fibrillation Pre-op Exam Cysto/TURP @ [facility] Dr Butler, 11/01/2024 FOR RECORDS PERTAINING TO PATIENTS WHO ARE OR HAVE BEEN ENROLLED IN A CHEMICAL DEPENDENCY/SUBSTANCEABUSE PROGRAM, SOME INFORMATION MAY BE OMITTED. This clinical summary was aggregated from multiple sources. Caution should be exercised in using it in the provision of clinical care. This summary normalizes information from multiple sources, and as a consequence, information in this document may materially change the coding, format and clinical context of patient data. In addition, data may be omitted in some cases. CLINICAL DECISIONS SHOULD BE BASED ON THE PRIMARY CLINICAL RECORDS. [employer] provides no warranty or guarantee of the accuracy or completeness of information in this document.
[2024-11-01 11:49] LABS: INR 1.07; Partial Thromboplastin Time 36.2 sec (22.3-36.2); Prothrombin Time 11.3 sec (9.0-11.6)
[2024-11-01 12:11] LABS: Glucometer 103 mg/dL (74-106)
[2024-11-01] MEDS: LACTATED RINGER'S SOLUTION 1,000 ML 50 ML IV ×2 (12:11→14:23)
[2024-11-01] MEDS: D5W IV ×2 (13:05→13:32)
[2024-11-01] MEDS: LEVOFLOXACIN 250 MG/50 ML IV ×2 (13:05→13:32)
--- NOTE | 2024-11-01 14:52 | PM.URSON ---
Urology Surgery Operative Note Operative Note Procedure Date: 11/01/24 Time Out Performed: yes Pre-op Diagnosis: BPH with LUTS refractory to max meds Post-op Diagnosis: same as pre-op Procedures performed: 1. Cystoscopy. 2. Transurethral resection of the prostate Anesthesia: CLAUDE Primary Surgeon: Manolo Dotson Complications: None Estimated blood loss (mL): 20 Findings: Very tight trilobar obstruction of the prostate Specimens: Prostate chips Drains: 22 Rwandan three-way coud? Sánchez to the bladder taped to traction and CBI Indications for Procedures: This gentleman has rather significant bladder outlet obstructive symptoms despite maximal medications. He is strongly desirous for TURP. He has signed an informed consent after risks were explained. Some of these risks include bleeding, infection, anesthesia, urinary incontinence both temporary and permanent, retrograde ejaculation, erectile dysfunction and possible need for further operations to name a few. Detailed description of Procedure: The patient was brought to the operating room and placed on the operating room table in the supine position. SCDs were placed on the lower extremities and turned on and functioning during the entire case. Timeout was done by all parties in the room. We all agreed upon the patient's identification and the planned procedures for this patient. Genn. anesthesia was then administered. The patient was then repositioned into the modified dorsal lithotomy position. All pressure points were satisfactorily padded. Genitalia were sterilely prepped and draped in usual fashion. I started by passing a 26 Rwandan Olympus resectoscope with a standard bipolar loop electrode per urethra and into the bladder. The ureteral orifices were tucked under the protruding median lobe. I started on the median lobe and uniformly resected this capacious lobe down to the bladder neck level. I then resected posteriorly from the bladder neck to the Veru level. 1 could see that not only did the median lobe protruded into the bladder but the lateral lobes protruded into the bladder also. I resected both of these protrusions down. I then took down the left lateral lobe from the bladder neck to the Veru level. Copious amounts of purulence pockets were unroofed. The right lateral lobe was then resected similarly. I intermittently used the coagulating loop to maintain hemostasis. I then resected the apex to open up a tight obstruction of the apical lobes. The resection bed was coagulated and not bleeding. The Ilich evacuator was used to get all the chips out of the bladder and these were sent for permanent sections. Final inspection in the bladder revealed no evidence of chips or bleeding. The ureters were untouched. With the scope at the apex, the bladder neck and prostatic urethra were now wide open. The scope was then removed. I then placed a 22 Rwandan three-way coud? Sánchez in the bladder. It was manually irrigated with a Lg syringe verifying correct placement. 30 cc of fluid was placed in the balloon. It was taped to traction and CBI was started. It irrigated to light pink. The anesthetic was then reversed. He was then transferred to a [facility] bed and wheeled to PACU in stable condition. Urinary Catheter Management Urinary Catheter Management Urethral: Cath placed during this visit: no
[2024-11-01] MEDS: SOLIFENACIN SUCCINATE 10 MG TABLET PO (15:03)
[2024-11-01] MEDS: HYDROMORPHONE HCL 0.5 MG/0.5 ML SYRINGE IV (15:05)
--- NOTE | 2024-11-01 15:23 | PC.NURSE ---
pain at meatus
--- NOTE | 2024-11-01 15:27 | PC.NURSE ---
Medicated with Vesicare as ordered
--- NOTE | 2024-11-01 15:32 | PC.NURSE ---
Medicated with Dilaudid as ordered
[2024-11-01] MEDS: DILTIAZEM HCL 180 MG CAP.ER.24H PO (16:10)
[2024-11-01] MEDS: 0.9 % SODIUM CHLORIDE 1,000 ML 80 ML IV (16:13)
[2024-11-01] MEDS: SODIUM CHLORIDE IRRIG SOLUTION 3,000 ML 3000 ML IRR ×7 (16:17→22:11)
[2024-11-01] MEDS: CEFAZOLIN SODIUM/DEXTROSE,ISO 1 GM/50 ML PREMIX IV ×2 (16:20→21:02)
[2024-11-02] MEDS: SODIUM CHLORIDE IRRIG SOLUTION 3,000 ML 3000 ML IRR ×2 (00:15→01:32)
[2024-11-02] MEDS: 0.9 % SODIUM CHLORIDE 1,000 ML 80 ML IV (04:11)
[2024-11-02 05:02] VITALS: BP 114/70; PULSE 73; TEMP 36.6; O2SAT 93
--- NOTE | 2024-11-02 05:03 | PC.NURSE ---
11/02/2024 0503 Traction taken off of urinary catheter. Urine is light pink in color with no clots. Tolerated well.
[2024-11-02 06:31] VITALS: BP 110/71; PULSE 89; O2SAT 94
[2024-11-02 07:20] VITALS: BP 120/72; PULSE 101; TEMP 36.5; O2SAT 96
[2024-11-02] MEDS: SOLIFENACIN SUCCINATE 10 MG TABLET PO (08:45)
[2024-11-02] MEDS: FINASTERIDE 5 MG TABLET PO (08:45)
[2024-11-02] MEDS: METHIMAZOLE 5 MG TABLET 10 MG PO (08:46)
== END 2024-11-02 10:31 | disposition home or self-care (01) ==
LOC: SURGOUT 14:47 → MS 15:50
PROVIDERS: PCP Family Medicine; Visit Provider Urology
PROC: (CPT 52601; principal; 2024-11-01 12:25)
DX: N40.1 Benign prostatic hyperplasia with lower urinary tract symptoms (principal); E78.00 Pure hypercholesterolemia, unspecified; I10 Essential (primary) hypertension; I48.91 Unspecified atrial fibrillation; Z79.01 Long term (current) use of anticoagulants; E03.9 Hypothyroidism, unspecified; Z90.49 Acquired absence of other specified parts of digestive tract; Z87.891 Personal history of nicotine dependence
CPT/HCPCS: 52601; 36415; 82948; 85610; 85730; 88305; J0131; J0690; J1100; J1171; J1956; J2371; J2405; J2704; J3010

== ENCOUNTER 2025-05-07 12:50 | Outpatient (OUT) | payer MEDICARE, BC, SELFPAY ==
[2025-05-07 14:17] LABS: Hematocrit 39.6 % (42.0-54.0); Hemoglobin 12.8 g/dL (14.0-18.0); Immature Granulocytes Abs Auto 0.02 10^3/uL (0.00-0.03); Immature Granulocytes Pct Auto 0.4 % (0.0-0.5); Lymphocytes Absolute Auto 1.1 10^3/uL (1.2-3.8); Mean Corpuscular HGB Conc 32.3 g/dL (29.9-35.2); Mean Corpuscular Hemoglobin 28.3 pg (25.9-34.0); Mean Corpuscular Volume 87.4 fL (80.0-94.0); Platelet Count 165 10^3/uL (150-450); Red Blood Count 4.53 10^6/uL (4.70-6.10); White Blood Count 5.6 10^3/uL (4.0-11.0)
[2025-05-07 14:28] LABS: Anion Gap 14.5; Blood Urea Nitrogen 21.0 mg/dL (7.0-18.0); Calcium 9.0 mg/dL (8.5-10.1); Carbon Dioxide 26.1 mmol/L (21.0-32.0); Chloride 106 mmol/L (98-107); Estimated GFR (African America >60 (>=60 mL/min/1.73m^2); Estimated GFR (Non-African Ame 52 (>=60 mL/min/1.73m^2); Glucose 92 mg/dL (74-106); Potassium 4.6 mmol/L (3.5-5.1); Sodium 142 mmol/L (136-145)
[2025-05-07 15:11] LABS: INR 1.14; Prothrombin Time 11.9 sec (9.0-11.6)
[2025-05-07 16:27] LABS: Partial Thromboplastin Time 45.8 sec (22.3-36.2)
== END 2025-05-07 12:51 | disposition home or self-care (01) ==
LOC: PST 12:51
PROVIDERS: PCP Family Medicine; Visit Provider Urology
DX: Z01.812 Encounter for preprocedural laboratory examination (principal); N20.1 Calculus of ureter
CPT/HCPCS: 36415; 80048; 85025; 85610; 85730

== ENCOUNTER 2025-05-20 11:29 | Outpatient (OUT) | payer MEDICARE, BC, SELFPAY ==
--- OUTSIDE RECORDS SUMMARY | 2025-05-20 11:37 | XMS_ITS | CCD ---
Author Organization [facility] Care Team Providers Care Burr Grinder Name Role Phone Román COLON, Michell R Unavailable Rachid PALMA, Mariela Andre Primary Care Provider Román HEAVY EQUIPMENT RENTAL ASSOCIATE, Michell R Unavailable Brooks Jeffery LPN Unavailable RACHID MARIELA Powell Primary Care Physician Rachid PALMA, Mariela Andre Primary Care Provider [phone] Rachid PALMA, Mariela Powell Unavailable Rachid PALMA, Mariela Powell Primary Care Provider Rachid PALMA, Mariela Powell Primary Care Provider Rachid PALMA, Mariela Powell Primary Care Provider [phone] JANEL CHAO Attending Unavailable RACHID, MARIELA F Referring Unavailable RACHID, MARIELA F Primary Care Unavailable ODELL ROJAS Attending Unavailable RACHID, MARIELA F Referring Unavailable RACHID, MRAIELA F Primary Care Unavailable EMILIANO ALAINZ Attending Unavailable RACHID, MARIELA F Referring Unavailable RACHID, MARIELA F Primary Care Unavailable MARIAELENA, AHMAD F Referring Unavailable RACHID, MARIELA F Primary Care Unavailable RACHID, MARIELA F Primary Care Unavailable VI GARCIA Attending Unavailable ISHAAN ZAMAN Admitting Unavailable JUNIEISHAAN Attending Unavailable JUNIEISHAAN Referring Unavailable RACHID, MARIELA F Primary Care Unavailable ESTHER MATOS Attending Unavail able RACHID, MARIELA F Referring Unavailable RACHID, MARIELA F Primary Care Unavailable MARIAELENA, AHMAD F Referring Unavailable RACHID, MARIELA F Primary Care Unavailable GABRIELLE ALVARADO Attending Unavailable RACHID, MARIELA F Referring Unavailable RACHID, MARIELA F Primary Care Unavailable RACHID, MARIELA F Primary Care Unavailable JASON FERRARI Attending Unavailable MIKE GAMBOA Referring Unavailable RACHID, MARIELA Powell Primary Care Unavailable BUTLER, MEDINA Vazquez Referring Unavailable RACHID, MARIELA Powell Primary Care Unavailable EMILIANO ALANIZ Referring Unavailable RACHID, MARIELA Powell Primary Care Unavailable MARIAELENA, SHIKHA F Attending Unavailable RACHID, MARIELA Powell Referring Unavailable MARIAELENA, SHIKHA F Attending Unavailable CATY, DAVID Attending Unavailable RACHID, MARIELA Powell Referring Unavailable DENBESTEN, CORNELIO Attending Unavailable CATY, DAVID Referring Unavailable MARIAELENA, SHIKHA F Attending Unavailable RACHID, MARIELA Powell Attending Unavailable CHAO, CRISTIANE Attending Unavailable RACHID, MARIELA Powell Attending Unavailable MARIAELENA, SHIKHA Andre Attending Unavailable FELTER, NORMA Olivo Attending Unavailable RACHID, MARIELA Powell Attending Unavailable JESSICA, CLAU Attending Unavailable RUSHER, ZEB Hammond Attending Unavailable JESSICA, CLAU Attending Unavailable RACHID, MARIELA Powell Attending Unavailable RACHID, MARIELA Powell Referring Unavailable BUTLER, Medina Vazquez Attending Unavailable BUTLER, Mednia R Attending Unavailable BUTLER, Medina R Attending Unavailable BUTLER, Medina R Attending Unavailable BUTLER, Medina R Attending Unavailable BUTLER, Medina R Attending Unavailable BUTLER, Medina R Attending Unavailable BUTLER, Medina R Attending Unavailable BUTLER, Medina R Attending Unavailable BUTLER, Medina R Attending Unavailable LI, EMILIANO Rockwell Admitting Unavailable LI, EMILIANO Rockwell Attending Unavailable RACHID, MARIELA Powell Primary Care Unavailable RACHID, MARIELA Powell Referring Unavailable RACHID, MARIELA Powell Primary Care Unavailable Medications Current Medications Medication Drug Class(es) Dates Sig (Normalized) Sig (Original) acetaminophen 325 mg / HYDROcodone bitartrate 5 mg oral tablet (4 sources) Opioid Agonist Start: 03-29-2025 End: 04-18-2025 take 1 tablet by mouth every six hours as needed for pain HYDROcodone-acetamin ophen ([place]) 5-325 MG tablet Take 1 tablet by mouth every 6 (six) hours if needed for severe pain 03/29/2025 04/18/2025 Discontinued (Therapy completed) apixaban 5 mg oral tablet (20 sources) Factor Xa Inhibitor Start: 06-15-2022 End: 01-01-2025 take 1 tablet by mouth in the morning, then take 1 tablet by mouth at bedtime, then take 1 tablet by mouth twice daily apixaban (ELIQUIS) 5 mg tablet Take 1 tablet (5 mg total) by mouth in the morning and 1 tablet (5 mg total) before bedtime. TAKE 1 TABLET BY MOUTH TWICE A DAY. 60 tablet 8 01/01/2025 Active atorvastatin 20 mg oral tablet (20 sources) HMG-CoA Reductase Inhibitor Start: 06-25-2021 End: 02-12-2026 take 1 tablet by mouth once daily atorvastatin (Lipitor) 20 MG tablet Indications: Mixed hyperlipidemia Take 1 tablet (20 mg) by mouth Daily 100 tablet 3 02/12/2025 02/12/2026 Active 24 hr dilTIAZem hydrochloride 180 mg extended release oral capsule (20 sources) Calcium Channel Dara Start: 01-26-2025 take 1 capsule by mouth once daily, then take 1 capsule by mouth every twenty-four hours dilTIAZem CD (Cardizem CD) 180 MG 24 hr capsule Take 180 mg by mouth Daily 01/26/2025 Active Start: 10-10-2024 End: 11-07-2025 take 1 capsule by mouth every twenty-four hours in the morning dilTIAZem XR (DILACOR XR) 180 MG 24 hr capsule Take 1 capsule (180 mg total) by mouth in the morning. 90 capsule 3 11/07/2024 11/07/2025 Active End: 02-12-2025 take 1 tablet by mouth once daily dilTIAZem (Cardizem) 30 MG immediate release tablet Take 30 mg by mouth Daily 02/12/2025 Discontinued (Other) DilTIAZem (Eqv-Cardizem CD) 180 mg/24 hours oral capsule, extended release (2 sources) Start: 11-16-2024 DilTIAZem (Eqv-Cardizem CD) 180 mg/24 hours oral capsule, extended release 180 mg = 1 cap(s), Refills(s) 0 Start Date: 11/16/24 Status: Ordered Repeat number: 1 doxycycline hyclate 100 mg oral tablet (1 source) Tetracycline-c lass Drug Start: 04-19-2025 take 1 tablet by mouth twice daily doxycycline hyclate 100 mg Tab 100 mg = 1 tab(s), Oral, BID, # 20 tab(s), Refills(s) 0, Pharmacy: [id number], 188, cm, 04/19/25 9:22:00 EDT, Height/Length Dosing, 199, kg, 04/19/25 9:22:00 EDT, Weight Dosing Start Date: 04/19/25 Status: Ordered Quantity: 20.0 Unit: tab(s) Repeat number: 1 1 ml fentaNYL 0.05 mg/ml injection (2 sources) Opioid Agonist Start: 05-02-2025 50 mcg, intrav enous, Every 5 min PRN, severe pain - pain scale 7-10, Starting on Uma 05/02/25 at 1517, PACU (only), Maximum fentaNYL (SUBLIMAZE) dose: 200 mcg Look-alike/sound-ali ke medication - verify indication for use. Start: 05-02-2025 25 mcg, intrav enous, Every 5 min PRN, pain scale 1-6, Starting on Uma 05/02/25 at 1517, PACU (only), Maximum fentaNYL (SUBLIMAZE) dose: 200 mcg Look-alike/sound-alike medication - verify indication for use. fentaNYL (SUBLIMAZE) injection 25 mcg (1 source) Start: 05-02-2025 fentaNYL (SUBLIMAZE) injection 25 mcg finasteride 5 mg oral tablet (20 sources) 5-alpha Reductase Inhibitor Start: 02-25-2025 End: 02-20-2026 take 1 tablet by mouth twice daily finasteride 5 mg Tab 5 mg, Oral, BID, X 90 day(s), # 180 tab(s), Refills(s) 3, Pharmacy: [id number], 188, cm, 02/25/25 12:39:00 EDT, Height/Length Dosing, 93.5, kg, 02/25/25 12:39:00 EDT, Weight Dosing Start Date: 02/25/25 Stop Date: 02/20/26 Status: Ordered Quantity: 180.0 Unit: tab(s) Repeat number: 4 Start: 10-26-2023 take 1 tablet by lolly th once daily finasteride (Proscar) 5 MG tablet Indications: Enlarged prostate TAKE ONE TABLET BY MOUTH DAILY 90 tablet 3 10/26/2023 Active furosemide 20 mg oral tablet (18 sources) Loop Diuretic Start: 03-18-2025 furosemide (LA SIX) 20 mg tablet Indications: Lower extremity aneurysm Take 1 tablet (20 mg total) by mouth as needed (LOWER EXTREMITY SWELLING). 180 tablet 3 03/18/2025 Active glucagon (rdna) 1 mg injection (1 source) Antihypoglycemic Agent Start: 05-02-2025 1 mg, i ntramuscular, As needed, low blood sugar, blood glucose less than 70 mg/dL and unconscious or NPO without IV access., Starting on Uma 05/02/25 at 1215, Pre-Procedure (CV), If conscious and not NPO, immediately follow with meal tray or high protein (7Grams) snack if tray not available. If NPO, initiate IV 5% Dextrose/Water at 100 mL/hr and contact prescriber for additional orders. If blood glucose is not greater than 70 mg/dL after initial treatment, repeat treatment. 150 ml glucose 50 mg/ml injection (3 sources) Start: 05-02-2025 15 g, oral, As needed, low blood sugar, blood glucose less than 70 mg/dL, Starting on Uma 05/02/25 at 1215, Pre-Procedure (CV), If patient conscious and taking PO. If blood glucose is not greater than 70 mg/dL after initial treatment, repeat treatment. Start: 05-02-2025 25 mL, intrave nous, As needed, low blood sugar, blood glucose less than 70 mg/dL and unconscious or NPO with IV access, Starting on Uma 05/02/25 at 1215, Pre-Procedure (CV), Push over 1-3 minutes STAT. If conscious and not NPO, immediately follow with meal tray or high protein (7 grams) snack if tray not available. If NPO, initiate 5% dextrose in water at 100 mL/hr and contact prescriber for additional orders. If blood glucose is not greater than 70 mg/dL after initial treatment, repeat treatment. VESICANT (RED) Warning: HYPERTONIC solution. Start: 05-02-2025 End: 05-03-2025 take 70 mg intravenously every hour 100 mL/hr, intravenous, Continuous PRN, blood glucose less than 70 mg/dL, Starting on Uma 05/02/25 at 1215, For 1 day, Pre-Procedure (CV), Use immediately following dextrose 50% or glucagon treatment for patients who are unconscious or NPO. Contact prescriber for additional orders. If blood glucose is not greater than 70 mg/dL after initial treatment, repeat treatment. 1 ml hydrALAZINE hydrochloride 20 mg/ml injection (1 source) Arteriolar Vasodilator Start: 05-02-2025 5 mg, intravenous, Every 10 min PRN, high blood pressure, systolic blood pressure greater than 160 mmHg, Starting on Uma 05/02/25 at 1517, PACU (only), Maximum dose of hydrALAZINE (APRESOLINE) is 20 mg while in PACU Look-alike/sound-alike medication - verify indication for use. Administer IV doses as a slow IV push; maximum rate: 5 mg/minute. hydroCHLOROthiazide 50 mg / triamterene 75 mg oral tablet (15 sources) Potassium-spar ing Diuretic, Thiazide Diuretic Start: 08-24-2022 End: 10-19-2024 take 1 tablet by mouth once in the morning triamterene-hydroCHLOROth iazid (MAXZIDE) 75-50 mg per tablet Take 1 tablet by mouth in the morning. 30 tablet 11 08/24/2022 10/19/2024 Discontinued (Discontinued by another clinician) Start: 08-24-2022 End: 08-17-2024 take 1 tablet by mouth in the morning triamterene-hydrochlorothiazide (Maxzide ) 75-50 MG tablet Take 1 tablet by mouth in the morning. 08/24/2022 08/17/2024 Discontinued (Therapy completed) labetalol hydrochloride 5 mg/ml injectable solution (1 source) beta-Adrenergic Dara Start: 05-02-2025 5 mg, intravenous, Every 5 min PRN, high blood pressure, systolic blood pressure greater than 160 mmHg and heart rate greater than 60 beats per minute, Starting on Uma 05/02/25 at 1517, PACU (only), Maximum dose of labetalol (TRANDATE) is 20 mg while in PACU Look-alike/sound-alike medication - verify indication for use. 10 ml lidocaine hydrochloride 10 mg/ml injection (1 source) Antiarrhythmic, Amide Local Anesthetic Start: 05-02-2025 1 mg (0.1 mL), intradermal, As needed, times 1 per IV attempt for IV start pain control, Starting on Uma 05/02/25 at 1302, Pre-op methazolAMIDE 50 mg oral tablet (10 sources) End: 03-18-2025 take 1 tablet by mouth in the morning, then take 1 tablet by mouth at bedtime methazolAMIDE (NEPTAZANE) 50 mg tablet Take 1 tablet (50 mg total) by mouth in the morning and 1 tablet (50 mg total) before bedtime. 03/18/2025 Discontinued (Discontinued by another clinician) methIMAzole 5 mg oral tablet (20 sources) Thyroid Hormone Synthesis Inhibitor Start: 02-27-2025 End: 08-26-2025 take 1 tablet by mouth once daily methIMAzole (Tapazole) 5 MG tablet Indications: Hyperthyroidism Take 1 tablet (5 mg) by mouth Daily 90 tablet 1 02/27/2025 08/26/2025 Active Start: 09-18-2024 End: 11-16-2025 methimazole 10 mg Tab 10 mg = 1 tab(s), Refills(s) 0 Start Date: 11/16/24 Status: Ordered Repeat number: 1 metoprolol tartrate 25 mg oral tablet (20 sources) beta-Adrenergic Dara Start: 09-10-2024 take 25 mg by mouth once daily metoprolol 25 mg, Oral, Daily, Refills(s) 0 Start Date: 09/10/24 Status: Ordered Start: 09-06-2024 End: 09-06-2025 take 1 tablet by mouth once daily metoprolol succinate XL (Toprol-XL) 25 MG 24 hr tablet Indications: Hyperthyroidism (CMS/HCC) Take 1 tablet (25 mg) by mouth Daily Do not crush or chew. 30 tablet 11 09/06/2024 11/30/2024 Discontinued 5 ml midazolam 1 mg/ml injection (1 source) Benzodiazepine Start: 05-02-2025 1 mg, intraven ous, As needed, anxiety, Starting on Uma 05/02/25 at 1302, For 2 doses, Pre-op, May repeat in 10 minutes, if needed, if original midazolam (VERSED) ineffective, Indication: Other, Indication: anxiety mupirocin 0.02 mg/mg topical ointment (10 sources) RNA Synthetase Inhibitor Antibacterial Start: 04-19-2025 mupirocin Top 2% Oin t 1 frank, Refill(s) 0 Start Date: 04/19/25 Status: Ordered Repeat number: 1 Start: 04-18-2025 mupirocin (Kirti troban) 2 % ointment Indications: Epidermal inclusion cyst Apply to affected area 3x daily for 7 days, 30 day supply 22 g 04/18/2025 Active Naloxone (1 source) Opioid Antagonist Start: 05-02-2025 0.1 mg, intravenous, As needed, respiratory depression, Starting on Uma 05/02/25 at 1517, For 4 doses, PACU (only), Maximum dose: 0.4 mg Look-alike/sound-alike medication - verify indication for use. ondansetron 4 mg disintegrating oral tablet (10 sources) Serotonin-3 Receptor Antagonist Start: 03-29-2025 End: 04-18-2025 take 1 tablet by mouth every eight hours as needed for nausea ondansetron ODT (ZOFRAN ODT) 4 mg disintegrating tablet Dissolve 1 tablet (4 mg total) on tongue every 8 (eight) hours as needed for nausea for up to 10 doses. 10 tablet 03/29/2025 Active predniSONE 20 mg oral tablet (7 sources) Start: 09-06-2024 End: 09-20-2024 take 1 tablet by mouth once daily predniSONE (Deltasone) 20 MG tablet Indications: Hyperthyroidism (CMS/HCC) Take 1 tablet (20 mg) by mouth Daily for 14 days 14 tablet 09/06/2024 09/20/2024 Active 1000 ml sodium chloride 9 mg/ml injection (7 sources) Start: 05-02-2025 take 25 mL intravenously every hour 25 mL/hr, intravenous, Continuous, Starting on Uma 05/02/25 at 1315, Pre-op Start: 05-02-2025 take 2 mL intravenously every hour 20 mL/hr, intravenous, Continuous, Starting on Uma 05/02/25 at 1315, Pre-op, If fluid restriction not indicated, infuse at a rate up to 5 mL/kg/hr not to exceed the total replacement volume (2 ml/kg/hr) from the time NPO status was initiated. Start: 05-02-2025 3 mL, intraven ous, Every 12 hours scheduled, First dose on Uma 05/02/25 at 1315, Pre-op Start: 05-02-2025 End: 05-03-2025 take 20 mL intravenously every hour 20 mL/hr, intravenous, Continuous, Starting on Uma 05/02/25 at 1230, For 1 day, Pre-Procedure (CV), . Start: 05-02-2025 3 mL, intraven ous, As needed, line care, before and after each intermittent use, Starting on Uma 05/02/25 at 1302, Pre-op tamsulosin hydrochloride 0.4 mg oral capsule (20 sources) alpha-Adrenergic Dara Start: 04-04-2025 take 1 capsule by mouth twice daily tamsulosin 0.4 mg Cap 0.4 mg = 1 cap(s), Oral, BID, # 60 cap(s), Refills(s) 11, Pharmacy: [id number], 188, cm, 02/25/25 12:39:00 EDT, Height/Length Dosing, 93.5, kg, 02/25/25 12:39:00 EDT, Weight Dosing Start Date: 04/04/25 Status: Ordered Quantity: 60.0 Unit: cap(s) Repeat number: 12 Start: 09-23-2023 End: 04-12-2025 take 1 capsule [...] procedure, # 2 tab(s), Refills(s) 0, Pharmacy: [id number], 188, cm, 09/10/24 11:28:00 EST, Height/Length Dosing, 91.1, kg, 09/10/24 11:28:00 EST, Weight Dosing Start Date: 09/10/24 Status: Ordered donepezil hydrochloride 5 mg oral tablet (13 sources) Start: 10-01-2024 End: 10-01-2025 take 1 tablet by mouth at bedtime donepezil (Aricept) 5 MG tablet Indications: Moderate late onset Alzheimer's dementia, unspecified whether behavioral, psychotic, or mood disturbance or anxiety (CMS/HCC) Take 1 tablet (5 mg) by mouth at bedtime 30 tablet 3 10/01/2024 11/30/2024 Discontinued Problems Active Problems Problem Classification Problem Date Documented Da te Episodic/Chronic Abdominal pain (1 source) Flank pain Onset: 03-29-2025 Episodic Aortic; peripheral; and visceral artery aneurysms (2 sources) Vascular disorder of lower extremity; Translations: [Aneurysm of artery of lower extremity] Onset: 03-18-2025 03-18-2025 Chronic Biliary tract disease (4 sources) Gallstone 09-10-2024 Episodic Calculus of urinary tract (2 sources) Calculus of kidney; Translations: [Calculus of ureter] Onset: 03-29-2025 Episodic Cardiac dysrhythmias (20 sources) Longstanding persistent atrial fibrillation; Translations: [Longstanding persistent atrial fibrillation] Onset: 06-01-2021 Resolved: 08-16-2023 01-25-2023 Chronic Chronic kidney disease (2 sources) Chronic kidney disease stage 3A ; Translations: [Chronic kidney disease, stage 3a ([facility])] 04-10-2025 Chronic Conditions associated with dizziness or vertigo (20 sources) Meniere's disease of right inner ear; Translations: [Meniere's disease, right ear] Onset: 01-25-2023 01-25-2023 Chronic Delirium, dementia, and amnestic and other cognitive disorders (20 sources) Senile dementia; 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] Onset: 10-04-2024 10-01-2024 Chronic Disorders of lipid metabolism (20 sources) Mixed hyperlipidemia; Translations: [Mixed hyperlipidemia] Onset: 04-22-2016 01-25-2023 Chronic E Codes: Fall (2 sources) Fall; Translations: [Unspecified fall, sequela] 04-10-2025 Episodic Essential hypertension (6 sources) Hypertensive disorder; Translations: [Essential (primary) hypertension] 09-10-2024 Chronic Gastrointestinal hemorrhage (20 sources) Rectal hemorrhage; Translations: [Hemorrhage of anus and rectum] Onset: 08-30-2019 Resolved: 08-16-2023 08-16-2023 Episodic Headache; including migraine (4 sources) Headache 09-10-2024 Episodic Hyperplasia of prostate (20 sources) Large prostate ; Translations: [Benign prostatic hyperplasia without lower urinary tract symptoms] Onset: 04-22-2016 04-12-2024 Chronic Mycoses (2 sources) Onychomycosis; Translations: [Tinea unguium] 04-22-2025 Episodic Nausea and vomiting (2 sources) Vomiting, unspecified; Translations: [Vomiting] Onset: 03-29-2025 Episodic Neoplasms of unspecified nature or uncertain behavior (2 sources) Neoplastic disease; Translations: [Neoplasm of unspecified behavior of bone, soft tissue, and skin] 03-12-2025 Episodic Osteoarthritis (4 sources) Arthritis 09-10-2024 Chronic Other aftercare (2 sources) Long-term current use of anticoagulant; Translations: [foot gatherer (current) use of anticoagulants] Onset: 02-25-2025 Episodic Other aftercare (2 sources) Removal of sutures done; Translations: [Encounter for removal of sutures] 04-26-2025 Episodic Other and unspecified benign neoplasm (2 sources) History of polyp of colon; Translations: [Personal history of colonic polyps] 09-05-2023 Episodic Other and unspecified benign neoplasm (2 sources) Melanocytic nevus of trunk; Translations: [Melanocytic nevi of trunk] 03-12-2025 Episodic Other circulatory disease (2 sources) Spider nevus; Translations: [Nevus, non-neoplastic] 03-12-2025 Episodic Other connective tissue disease (2 sources) Pain in both feet; Translations: [Pain in right foot] 04-22-2025 Episodic Other diseases of bladder and urethra (4 sources) Diverticulum of bladder; Translations: [Diverticulum of bladder] Onset: 09-11-2024 Chronic Other diseases of kidney and ureters (1 source) Urinary tract obstruction; Translations: [Hydronephrosis with renal and ureteral calculous obstruction] Onset: 04-19-2025 Episodic Other diseases of kidney and ureters (1 source) Hydronephrosis with renal and ureteral calculous obstruction; Translations: [Hydronephrosis with renal and ureteral calculous obstruction] Onset: 04-23-2025 Episodic Other ear and sense organ disorders (20 sources) Bilateral hearing loss; Translations: [Unspecified hearing loss, bilateral] Onset: 01-25-2023 01-25-2023 Chronic Other ear and sense organ disorders (20 sources) Mixed conductive AND sensorineural hearing loss; Translations: [Mixed conductive and sensorineural hearing loss, unilateral, right ear with restricted hearing on the contralateral side] Onset: 01-25-2023 01-25-2023 Chronic Other hereditary and degenerative nervous system conditions (4 sources) Mild cognitive disorder ; Translations: [Mild cognitive impairment, so stated] 12-05-2024 Chronic Other lower respiratory disease (4 sources) Snoring; Translations: [Snoring] 02-12-2025 Episodic Other nervous system disorders (20 sources) Neuropathy; Translations: [Polyneuropathy, unspecified] Onset: 04-22-2016 01-25-2023 Chronic Other nervous system disorders (20 sources) Chronic pain; Translations: [Other chronic pain] Onset: 12-22-2020 01-25-2023 Chronic Other nervous system disorders (2 sources) Disturbance of attention; Translations: [Attention and concentration deficit] 12-05-2024 Chronic Other skin disorders (4 sources) Disorder of skin of upper limb; Translations: [Disorder of the skin and subcutaneous tissue, unspecified] 02-12-2025 Episodic Other skin disorders (4 sources) Lesion of skin of face; Translations: [Disorder of the skin and subcutaneous tissue, unspecified] 02-12-2025 Episodic Other skin disorders (4 sources) Actinic keratosis; Translations: [Actinic keratosis] 03-12-2025 Episodic Other skin disorders (2 sources) Lentiginosis; Translations: [Other melanin hyperpigmentation] 03-12-2025 Episodic Other skin disorders (2 sources) Seborrheic keratosis; Translations: [Other seborrheic keratosis] 03-12-2025 Episodic Other skin disorders (4 sources) Epidermoid cyst; Translations: [Epidermal cyst] 03-12-2025 Episodic Other skin disorders (2 sources) Dystrophia unguium; Translations: [Nail dystrophy] 04-22-2025 Episodic Residual codes; unclassified (2 sources) Hypersomnia with sleep apnea; Translations: [Hypersomnia, unspecified] 12-05-2024 Chronic Residual codes; unclassified (8 sources) Memory impairment; Translations: [Other amnesia] 08-17-2024 Episodic Residual codes; unclassified (4 sources) Tobacco user 09-10-2024 Episodic Residual codes; unclassified (2 sources) Family history of dementia; Translations: [Family history of other mental and behavioral disorders] 12-05-2024 Episodic Substance-related disorders (3 sources) Smoker 09-11-2024 Chronic Comment on above: Added secondary to d ocumentation in Social History. Superficial injury; contusion (4 sources) Contusion of face; Translations: [Contusion of other part of head, sequela] 04-10-2025 Episodic Thyroid disorders (20 sources) Hyperthyroidism; Translations: [Thyrotoxicosis, unspecified without thyrotoxic crisis or storm] Onset: 10-04-2024 08-19-2024 Chronic Unclassified (1 source) Autogenerated Problem Onset: 12-06-2024 12-06-2024 Unclassified (3 sources) Longstanding persistent atrial fibrillation; Translations: [Longstanding persistent atrial fibrillation] Onset: 05-24-2022 Unclassified (1 source) New Patient Onset: 10-19-2024 Unclassified (1 source) Pre-op Exam Onset: 10-19-2024 Unclassified (2 sources) Drug therapy finding 11-16-2024 Unclassified (1 source) Obstructive hydronephrosis 04-19-2025 Unclassified (1 source) Medication Problem Onset: 02-13-2025 Unclassified (1 source) Wound Check Onset: 05-10-2025 Unclassified (1 source) i48.1 k62.5 Onset: 05-02-2025 Urinary tract infections (2 sources) Recurrent urinary tract infection 09-10-2024 Episodic Past or Other Problems Problem Classification Problem Date Documented Da te Episodic/Chronic Heart valve disorders (20 sources) Non-rheumatic mitral regurgitation ; Translations: [Nonrheumatic mitral (valve) insufficiency] Onset: 06-20-2023 Resolved: 08-16-2023 08-16-2023 Chronic Mood disorders (20 sources) Mood disorders Onset: 08-16-2023 08-16-2023 Other and unspecified benign neoplasm (20 sources) Adenomatous polyp of colon ; Translations: [Benign neoplasm of transverse colon] Onset: 09-11-2019 01-25-2023 Episodic Other and unspecified benign neoplasm (20 sources) History of adenomatous polyp of colon; Translations: [Personal history of colonic polyps] Onset: 08-30-2019 01-25-2023 Episodic Other ear and sense organ disorders (20 sources) Hearing loss; Translations: [Unspecified hearing loss, unspecified ear] Onset: 01-25-2023 Resolved: 08-16-2023 08-16-2023 Chronic Other ear and sense organ disorders (20 sources) Bilateral tinnitus; Translations: [Tinnitus, bilateral] Onset: 01-25-2023 01-25-2023 Episodic Other gastrointestinal disorders (20 sources) Slow transit constipation; Translations: [Slow transit constipation] Onset: 06-14-2019 01-25-2023 Episodic Other lower respiratory disease (20 sources) [...] neoplasm of digestive organs] 09-05-2023 Episodic Unclassified (20 sources) Onset: 09-11-2019 09-11-2019 Results Test Name Value Interpretation Reference Range Facility ALL BASIC METABOLIC PANELon 05-07-2025 Anion gap [Moles/Vol] 14.5 mmol/L NO [facility] Calcium [Mass/Vol] 9 mg/dL 8.5 - 10. 1 mg/dL [facility] Chloride [Moles/Vol] 106 mmol/L 98 - 10 7 mmol/L [facility] CO2 [Moles/Vol] 26.1 mmol/L 21.0 - 32.0 mmol/L [facility] Creatinine [Mass/Vol] 1.32 mg/dL High 0.70 - 1.30 mg/dL [facility] GFR/1.73 sq M.predicted CKD-EPI (S/P/Bld) [Vol rate/Area] >60 >=60 mL/min/1.73m 2 [facility] Glucose [Mass/Vol] 92 mg/dL 74 - 106 mg/dL [facility] Interpretation and review of laboratory results Abnormal [facility] Potassium [Moles/Vol] 4.6 mmol/L 3.5 - 5.1 mmol/L [facility] Sodium [Moles/Vol] 142 mmol/L 136 - 145 mmol/L [facility] TBH EGFR-NON AF CHADIAN 52 Low >=60 mL/min/1.73m 2 [facility] Urea nitrogen [Mass/Vol] 21 mg/dL High 7.0 - 18.0 mg/dL [facility] Urea nitrogen/Creatinine [Mass ratio] 15.9 mg/mg [facility] leadon 05-02-2025 [facility]EMASTERVUE [facility] EP Invasiveon 05-02-2025 [facility] HEMOCHRON Eryn 05-02-2025 HEMOCHRON CLOT TIME 262 s High 96-152 [facility] Comment on above: Order Comment: This test is used to monitor heparin levels Performed By: #### H ACT #### [facility] (TT) [address] [place] [address] VIR HEMOCHRON CLOT TIME 365 s High 96-152 [facility] Comment on above: Order Comment: This test is used to monitor heparin levels Performed By: #### H ACT #### [facility] (TT) [address] [place] [address] VIR Hemochron Eryn 05-02-2025 ACT Kaolin induced method (Bld) 365 s High 96 - 152 s [facility] ACT Kaolin induced method (Bld) 262 s High 96 - 152 s [facility] Left atrial appendage closur guerline 05-02-2025 [facility] Radiology Study observation (narrative) [facility] No Panel Informationon 05-02 Successful implantation of a 27 mm Watchman FLX Pro device for left atrial appendage closure. Procedure Details IMPLANTATION OF A WATCHMAN FLX PRO FOR LEFT ATRIAL APPENDAGE CLOSURE PROCEDURES PERFORMED: 1. Transseptal puncture 2. Intracardiac echocardiography 3. Left atrial appendage closure with 27 mm Watchman FLX Pro 4. Ultrasound guided access GENERAL ANESTHESIA FOR PROCEDURE Please see anesthesia notes for details. INDICATION FOR PROCEDURE: Briefly, Singh Bowman is a 80 y.o. year old male with PMH dementia, hyperthyroidism, Meniere's disease, HTN, long-standing persistent AF w/ [id number] 3 on apixaban 5 mg BID, s/p cryoballoon PVI and RF ablation of the RSPV with me 08/11/22 who presents for Watchman implantation. He is currently on diltiazem 180 mg qday for rate control, prior prolonged episode of AF 11/2024 in setting of hyperthyroidism. He has a history of GIB 2/[address] cardiac morphology 05/24/22 shows a broccoli shaped appendage measuring 18x26 mm. ANTICOAGULATION STRATEGY PRIOR TO AND POST PROCEDURE: apixaban PROCEDURE NARRATIVE: The patient was able to give written informed consent after revisiting the ramesh portions of the risk versus benefit profile of the procedure. Patient verbalized strong understanding of this discussion and a strong desire to proceed with the procedure. Please note that this detailed informed consent process utilized mutual and shared decision making process between all parties involved, principally the physician and patient, but also potentially with input from the patient's selected family and friends. Please also note that the patient was seen and examined prior to this procedure by a non implanting physician who agreed that this patient would benefit from left atrial appendage closure as an alternative to long-term anticoagulation. The [facility] was [facility] in the post absorptive state. The patient was electively intubated for the procedure and given MAC sedation by my colleagues from anesthesia. Please see the detailed anesthesia records. The patient was then prepared and draped in a routing sterile fashion. Access was obtained at the right common femoral vein under ultrasound guidance with the Seldinger technique x2. Two J-tip wires were advanced into the vascular space. A 10 Fr sheath and a 16 Fr sheath were advanced over these wires into the femoral vein. The patient was then anticoagulated with unfractionated heparin in bolus to maintain an ACT range between 250-350 seconds. A 10F AccuNav ICE catheter was advanced into the RA. A VersaCross system with a pigtail wire and sheath utilizing RF energy was used to perform the transseptal puncture with a combination of fluoroscopic and echocardiographic guidance. The Watchman delivery double-curve curve sheath was advanced over the VersaCross wire into the left atrial body. The left atrial appendage was then cannulated with a 6mm angled pigtail catheter under fluoroscopic/echocard iographic guidance. Contrast injection was then performed through the pigtail catheter for sizing of the ABY os. The Watchman delivery sheath was advanced into the left atrial appendage. The dimensions of the ABY were then confirmed via multiple projections on ICE. A 27 mm Watchman FLX Pro device was then delivered into the left atrial appendage. Tug testing confirmed stable positioning. PASS criteria (positioning, anchoring, size, and seal) was assessed via a combination of doppler ICE and fluoroscopy. Compression of the device was measured to be 16-27%. Device was then released. Catheters and sheaths were withdrawn from the left atrium. Hemostasis was achieved with a figure-of-8 suture over the venotomy site. Protamine was given to reverse anticoagulation. The patient was then extubated and transferred to the PACU in stable condition. It is medically necessary that the patients who undergo percutaneous left atrial occlusion, are admitted as an inpatient. This patient had a recovery that was earlier than expected can be discharged today. COMPLICATIONS: none immediate. EBL: 50 cc RADIATION EXPOSURE: 750 mGy over 7.1 minutes CONCLUSIONS: Successful implantation of a 27 mm Watchman FLX Pro device for left atrial appendage closure. RECOMMENDATIONS: 1. Recovery in the PACU and transfer to CVU for monitoring 2. Bedrest for 2 hours after procedure 3. Resume anticoagulation tonight 4. CT cardiac morphology will be scheduled in 6 weeks to evaluate for lidia-device leaks and device related thrombus, if none seen, can discontinue anticoagulation and start clopidogrel 75 mg daily along with ASA 81 mg daily for 4.5 months after imaging 5. No heavy lifting greater than 30 pounds for 1 week 6. He has groin check scheduled 05/10/25, and return visit with me 07/26/25 at [place]. Emiliano Alaniz MD/[place], [facility], [facility] Cardiac Electrophysiology XPER Interpretation and review of laboratory results Abnormal [facility] This test is used to monitor heparin levels [facility] BASIC METABOLIC PANELon 04-08 Anion gap [Moles/Vol] 9 mmol/L Normal 5-15 [facility] Comment on above: Performed By: #### C TRACE CBCA #### [facility] ([id number]) [address] [place] [address] 45669 Calcium [Mass/Vol] 9.1 mg/dL Normal 8.5-10.5 [facility] Comment on above: Performed By: #### C TRACE CBCA #### [facility] ([id number]) [address] [place] [address] 90642 Chloride [Moles/Vol] 109 mmol/L Normal 98-109 [facility] Comment on above: Performed By: #### C TRACE CBCA #### [facility] ([id number]) [address] [place] [address] 88299 CO2 [Moles/Vol] 24 mmol/L Normal 22-32 [facility] Comment on above: Performed By: #### C TRACE CBCA #### [facility] ([id number]) [address] [place] [address] 66036 Creatinine [Mass/Vol] 1.59 mg/dL High 0.60-1.30 [facility] Comment on above: Result Comment: METH OD TRACEABLE TO IDMS STANDARD Performed By: #### C TRACE CBCA #### [facility] ([id number]) [address] [place] [address] 33339 GFR/1.73 sq M.predicted among non-blacks MDRD (S/P/Bld) [Vol rate/Area] 44 mL/min/{1.73_m2} Low >=60 [facility] Comment on above: Result Comment: Repo rted eGFR is based on the CKD-EPI 2020 equation that does not use a race coefficient. Performed By: #### C TRACE, CBCA #### [facility] ([id number]) [address] [place] [address] 87366 Glucose [Mass/Vol] 88 mg/dL Normal 65-99 [facility] Comment on above: Performed By: #### C TRACE, CBCA #### [facility] ([id number]) [address] [place] [address] 03929 Potassium [Moles/Vol] 4.1 mmol/L Normal 3.5-5.0 [facility] Comment on above: Performed By: #### C TRACE, CBCA #### [facility] ([id number]) [address] [place] [address] 16889 Sodium [Moles/Vol] 142 mmol/L Normal 134-146 [facility] Comment on above: Performed By: #### C TRACE, CBCA #### [facility] ([id number]) [address] [place] [address] 33153 Urea nitrogen [Mass/Vol] 24 mg/dL Normal 5-27 [facility] Comment on above: Performed By: #### C TRACE, CBCA #### [facility] ([id number]) [address] [place] [address] 71923 CBC WITH AUTO DIFFERENTIALon 04-25-2025 BASOPHILS ABSOLUTE COUNT (10*3/UL) BY AUTOMATED COUNT 0.1 10*3/uL Normal 0.0-0.2 [facility] Comment on above: Performed By: #### C TRACE, CBCA #### [facility] ([id number]) [address] [place] [address] 15691 BASOPHILS RELATIVE PERCENT BY AUTOMATED COUNT 1.3 % Normal [facility] Comment on above: Performed By: #### C MP, CBCA #### [facility] ([id number]) [address] [place] [address] 92690 CELLAVISION DIFFERENTIAL TYPE AUTOMATED DIFFERENTIAL Normal [facility] Comment on above: Performed By: #### C MP, CBCA #### [facility] ([id number]) [address] [place] [address] 49490 Eosinophils (Bld) [#/Vol] 0.3 10*3/uL Normal 0.0-0.4 [facility] Comment on above: Performed By: #### C MP, CBCA #### [facility] ([id number]) [address] [place] [address] 35494 EOSINOPHILS RELATIVE PERCENT BY AUTOMATED COUNT 5.6 % Normal [facility] Comment on above: Performed By: #### C MP, CBCA #### [facility] ([id number]) [address] [place] [address] 64108 Erythrocyte distribution width (RBC) [Ratio] 14.9 % Normal 11.5-15 [facility] Comment on above: Performed By: #### C MP, CBCA #### [facility] ([id number]) [address] [place] [address] 75654 Hematocrit (Bld) [Volume fraction] 38.1 % Low 39-50 [facility] Comment on above: Performed By: #### C MP, CBCA #### [facility] ([id number]) [address] [place] [address] 66187 Hemoglobin (Bld) [Mass/Vol] 12.6 g/dL Low 13-17 [facility] Comment on above: Performed By: #### C MP, CBCA #### [facility] ([id number]) [address] [place] [address] 31329 LYMPHOCYTES ABSOLUTE COUNT (10*3/UL) BY AUTOMATED COUNT 1.0 10*3/uL Normal 1.0-3.5 [facility] Comment on above: Performed By: #### C MP, CBCA #### [facility] ([id number]) [address] [place] [address] 43242 LYMPHOCYTES RELATIVE PERCENT BY AUTOMATED COUNT 18.4 % Normal [facility] Comment on above: Performed By: #### C MP, CBCA #### [facility] ([id number]) [address] [place] [address] 67808 MCH (RBC) [Entitic mass] 28.0 pg Normal 27-34 [facility] Comment on above: Performed By: #### C MP, CBCA #### [facility] ([id number]) [address] [place] [address] 77065 MCHC (RBC) [Mass/Vol] 33.2 g/dL Normal 32-36 [facility] Comment on above: Performed By: #### C MP, CBCA #### [facility] ([id number]) [address] [place] [address] 13335 MCV (RBC) [Entitic vol] 85 fL Normal 80-100 [facility] Comment on above: Performed By: #### C MP, CBCA #### [facility] ([id number]) [address] [place] [address] 40195 MONOCYTES ABSOLUTE COUNT (10*3/UL) BY AUTOMATED COUNT 0.4 10*3/uL Normal 0.0-0.9 [facility] Comment on above: Performed By: #### C MP, CBCA #### [facility] ([id number]) [address] [place] [address] 97985 MONOCYTES RELATIVE PERCENT BY AUTOMATED COUNT 6.6 % Normal [facility] Comment on above: Performed By: #### C MP, CBCA #### [facility] ([id number]) [address] [place] [address] 02102 NEUTROPHILS ABSOLUTE COUNT BY AUTOMATED COUNT 3.7 10*3/uL Normal 1.5-6.6 [facility] Comment on above: Performed By: #### C MP, CBCA #### [facility] ([id number]) [address] [place] [address] 49268 NEUTROPHILS RELATIVE PERCENT BY AUTOMATED COUNT 68.1 % Normal [facility] Comment on above: Performed By: #### C MP, CBCA #### [facility] ([id number]) [address] [place] [address] 73932 Platelet mean volume (Bld) [Entitic vol] 7.2 fL Normal 7-12 [facility] Comment on above: Performed By: #### C MP, CBCA #### [facility] ([id number]) [address] [place] [address] 03934 Platelets (Bld) [#/Vol] 245 10*3/uL Normal 150-450 [facility] Comment on above: Performed By: #### C MP, CBCA #### [facility] ([id number]) [address] [place] [address] 89037 RBC COUNT 4.50 X10E12/L Normal 4.1-5.7 [facility] Comment on above: Performed By: #### C MP, CBCA #### [facility] ([id number]) [address] [place] [address] 04545 WBC (Bld) [#/Vol] 5.5 10*3/uL Normal 4-11 [facility] Comment on above: Performed By: #### C MP, CBCA #### [facility] ([id number]) [address] [place] [address] 48183 MAGNESIUMon 04-25-2025 Magnesium [Mass/Vol] 2.1 mg/dL Normal 1.8-2.6 [facility] Comment on above: Performed By: #### C MP, CBCA #### [facility] ([id number]) [address] [place] [address], [place] [address] XR UROGRAPHY IVP W OR WO IRMA OSon 04-23-2025 XR UROGRAPHY IVP W OR WO TOMOS XR UROGRAPHY IVP W OR WO TOMOS Clinical history: Ureteral stone. IVP: 04/23/2025 FINDINGS: Supine piece dyer images the abdomen were obtained. There are no suspicious calcifications overlying the expected location of the kidneys. Multiple calcifications overlying the pelvis. Compared to prior abdominal images from 04/12/2025 a new, 4 mm calcification is present in the right hemipelvis proximal to the ischial spine level. Other phleboliths are present. Degenerative changes are noted within the lower lumbar spine with dextroconvex curvature. Bilateral hip osteoarthritis is present. Bowel gas pattern is within normal limits. After 100 mL Omnipaque 300 intravenously there is prompt concentration and excretion of contrast within the left kidney. Asymmetric, delayed nephrogram is present on the right. On oblique images pelvicalyceal contours appear within normal limits on the left. Opacification of the pelvicalyceal system and ureter is delayed on the right. Course and caliber of the left ureter appears within normal limits. The left distal ureter is not visualized. The bladder appears trabeculated with no gross filling defect. A small post void residual is evident on postcontrast images with lobularity of the inferior aspect of the bladder possibly related to prior procedure. IMPRESSION: Right hydronephrosis and persistent obstruction with a 4 mm calculus that appears to be in the distal ureter near the UVJ at this time. Other chronic appearing findings as described above. Finalized by Jason Peterson MD on 04/23/2025 10:31 AM Normal [facility] Ambulatory Visit Summaryon 0 04-19-2025 Ambulatory Visit Summary Ambulatory Visit Summary SINGH BOWMAN :1945 Visit Date:04/19/2025 Ambulatory Visit Instructions Your Diagnosis Ureteral stone with hydronephrosis BPH with obstruction/lower urinary tract symptoms Anticoagulated Tests Performed XR IVP -- Results Pending -- Please visit your patient portal for your results or contact your primary care physician. Your Care Team Attending Physician - Medina BUTLER MD Primary Care Physician - MARIELA RASHID MD This Is Your Medications List finasteride (finasteride 5 mg Tab) tamsulosin (tamsulosin 0.4 mg Cap) Contact prescribing physician if questions or concerns apixaban (Eliquis 5 mg oral tablet) atorvastatin (atorvastatin 20 mg Tab) diltiazem (DilTIAZem (Eqv-Cardizem CD) 180 mg/24 hours oral capsule, extended release) methimazole (methimazole 10 mg Tab) mupirocin topical (mupirocin Top 2% Oint) Procedures Performed Colonoscopy, flexible; diagnostic, including collection of specimen(s) by brushing or washing, when performed (separate procedure) (12/19/2024), Transurethral prostatectomy (11/01/2024), TURP - Transurethral resection of prostate (11/01/2024), Cystoscopy (09/11/2024), Appendectomy, Cataracts, Cholecystectomy, Colonoscopy, Tonsillectomy. Discharge Vitals Temperature (Tympanic) 36.7 ???C Heart Rate (Peripheral) 68 Respiratory Rate 16 Blood Pressure 126/70 Height 188 cm Height 74 in Weight 199.0 kg Weight 438.719 lb BMI 56.3 What to do next Scheduled Follow-Up Appointments Tuesday2025 11:00 AM EDT With: Medina BUTLER MD Where: [facility] [address] [address]- You Need to Schedule the Following Appointments Follow Up with Medina BUTLER MD, URL When: Where: [address] [place] [address]- Medications What How Much When Instructions Unchanged finasteride (finasteride 5 mg Tab) 5 Milligram By Mouth 2 times a day Duration: 90 Days Unchanged tamsulosin (tamsulosin 0.4 mg Cap) 1 Capsules By Mouth 2 times a day Unchanged apixaban (Eliquis 5 mg oral tablet) 1 Tablets Contact prescribing physician if questions or concerns Unchanged atorvastatin (atorvastatin 20 mg Tab) 1 Tablets Contact prescribing physician if questions or concerns Unchanged diltiazem (DilTIAZem (Eqv-Cardizem CD) 180 mg/ 24 hours oral capsule, extended release) 1 Capsules Contact prescribing physician if questions or concerns Unchanged methimazole (methimazole 10 mg Tab) 1 Tablets Contact prescribing physician if questions or concerns Unchanged mupirocin topical (mupirocin Top 2% Oint) 1 Application Contact prescribing physician if questions or concerns Allergies No Known Allergies Problems Ongoing - Any problem that you are currently receiving treatment for. 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 Please share your experience with us by completing your survey. We appreciate your feedback and thank you for choosing us for your care. Education Materials Intravenous Pyelogram An intravenous pyelogram is a type of X-ray that is used to check for problems in the kidneys, ureters, and bladder. This test can help your doctor find problems, such as: ??? Kidney stones. ??? Bladder stones. ??? A prostate that has become large. ??? Tumors. Tell your doctor about: ??? Any allergies you have. ??? All medicines you are taking. These include vitamins, herbs, eye drops, creams, and lvzg-wlq-noafhqy medicines. ??? Any problems you or family members have had with anesthesia. ??? Any bleeding problems you have. ??? Any surgeries you have had. ??? Any other medical conditions you have. ??? Whether you are or may be . What are the risks? Your doctor will talk with you about risks. These may include: ??? Feeling like you may vomit (nausea). ??? Having a reaction to the dye that is used during the test. What happens before the procedure? Follow instructions from your doctor about eating or drinking. ??? Follow instructions from your doctor about taking an oral bowel prep. ??? Ask your doctor about changing or stopping: ? Your normal medicines. ? Vitamins, herbs, and supplements. ? Yrap-qrm-evghwiz medicines. ??? You may need to remove glasses, jewelry, and any other metal objects. ??? You may be asked to put on a hospital gown. What happens during the procedure? You will lie down on an exam table. ??? An IV tube will be inserted into o (more content not included)... Normal [facility] Urology Office/Clinic Noteon 04-19-2025 Urology Office/Clinic Note Urology Office/Clinic Note Chief Complaint Pt here for ER folow up HPI Staff Pt is a 80 year old male here for an ER follow up Pt was seen at [facility] ED on 03/29/25 for persistent rt flank pain. A mild right hydronephrosis secondary to a mild ureteral 3 mm kidney stone Dx: BPH with obstruction/LUTS, gross hematuria and anticoagulated *Finasteride 5mg qd and Flomax qd Pt denies pain/burning denies visible blood pt denies flank pain IPSS: 11 History of Present Illness Tests reviewed: reviewed UA, CT, ER notes, labs, KUB. I have reviewed the previous health record information and history for this patient from Dr. Butler I have reviewed and verified the staff [...] HPI. Physical Exam Vitals & Measurements T: 36.7 ???C(Tympanic) HR: 68(Peripheral) RR: 16 BP: 126/70 HT: 74 in HT: 188 cm WT: 438.719 lb WT: 199.0 kg BMI: 56.3 General Appearance: alert, no distress, well nourished, well developed male. Flank Pain: none. Assessment/Plan Pt accompanied by who states pt has dementia. 1. Ureteral stone with hydronephrosis (N13.2: Hydronephrosis with renal and ureteral calculous obstruction) [facility] ER 03/29/25 with R flank pain and vomiting. CT AP wo con reveals mild R renal collecting system dilatation and mild dilatation of the proximal R ureter, extending down to a 3 mm calculus in the midportion of the R ureter. RICARDO with Cr of 1.34, eGFR 54. Normal WBC. KUB 04/12/25 [facility] - neg for obvious stones. reports that the ER did not provide a urine strainer. states that their son is a [employer] who suggested they strain his urine. states they started to strain pt's urine and states pt passed a black speck. Unsure if this was the stone. Pt states his pain did resolve shortly after this. UA today shows large blood and large leuks. states his urine is dark, likely secondary to dehydration. Pt was previously experiencing dysuria, has since resolved. Due to this will provide ATB coverage. Also recommended pt to increase fluid intake to ten to twelve 16oz bottles a day; preferably water, clear pop, and sugar free lemonade. R CVA nontender on exam. Discussed next steps. Not convinced that pt passed stone. Recommend IVP to confirm stone passage. Surgical mgmt will be recommended if stone is still present. Pt and his agree with plan. All questions and concerns addressed. -Start Doxycycline 100 mg bid x 10 days -Schedule IVP at [facility], pt to be called with results 2. BPH with obstruction/lower urinary tract symptoms (N40.1: Benign prostatic hyperplasia with lower urinary tract symptoms) PSA 08/17/24 - 0.99 S/p TURP 11/01/24 - Neg. IPSS 11 (8) Taking Finasteride 5 mg qd and Flomax 0.4 mg bid (increased to bid at prior OV). 3. Anticoagulated (Z79.01: foot gatherer (current) use of anticoagulants) On Eliquis for Afib. S/p ablation 08/2022. Normal sinus rhythm since ablation but procedure put him into afib. [2] Watchman procedure scheduled 05/02. Follow-up With When Contact Information CARRIE PALMA, Medina Vazquez, URL [address] [place] [address]- Additional Instructions: F/up dependent on IVP results Patient Education Intravenous Pyelogram, Oytq-pp-Bips Dietary Guidelines to Help Prevent Kidney Stones I, Jacqueline Lerner, personally scribed for Dr. Butler on 04/19/2025 10:15:33. . Documentation recorded by the Jacqueline griffiths, accurately reflects the services(s) I performed and decisions made by me. Authenticated by Dr. Butler on 04/19/2025 10:18:40. 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 Medications atorvastatin 20 mg Tab, 20 (more content not included)... Normal [facility] Comment on above: Result Comment: Elec tronically Signed By: Medina BUTLER MD\.br\Date and Time Signed: 04/19/25 10:18 EDT\.br\Electronically Co-Signed By: Jacqueline Lerner.br\Date and Time Co-Signed: 04/19/25 10:15 EDT No Panel Informationon 04-18 Excision method: elliptical Lesion length (cm): 2 Lesion width (cm): 1.6 Margin per side (cm): 0 Total excision diameter (cm): 2 Informed consent: discussed and consent obtained Anesthesia: the lesion was anesthetized in a standard fashion Anesthetic: 1% lidocaine w/ epinephrine 1-100,000 local infiltration (3 cc) Instrument used: #15 blade Hemostasis achieved with: electrodesiccation Outcome: patient tolerated procedure well with no complications [facility] Complexity: Intermediate Final length (cm): 2.6 Subcutaneous layers (deep stitches): Suture size: 5-0 Suture type: Monocryl (poliglecaprone 25) Stitches: Running subcuticular Fine/surface layer approximation (top stitches): Suture size: 5-0 Suture type comment: Surgipro Stitches: simple running Suture removal (days): 7 Post-procedure details: sterile dressing applied and wound care instructions given Dressing type: pressure dressing and petrolatum [facility] No Panel InformationOrdered By: Clau Ignacio on 04-18-2025 [facility] XR ABDOMEN AP 1 VWon 025 XR ABDOMEN AP 1 VW XR ABDOMEN AP 1 VW XR ABDOMEN AP 1 VW HISTORY: Kidney stone surveillance COMPARISON: CT abdomen and pelvis 03/29/2025 FINDINGS: AP views obtained. Nonobstructive bowel gas pattern. No abnormal calcifications overlying the kidneys or ureters. Multilevel degenerative changes and dextroscoliosis of the lumbar spine. Surgical clips present in the right hemiabdomen. Phleboliths present in the pelvis. Moderate to severe degenerative changes of the bilateral hips. IMPRESSION: * No abnormal calcifications overlying the kidneys or ureters. Approved by Gardenia Moore MD on 04/15/2025 10:26 AM IWilliam MD have personally reviewed the image(s) and agree with and/or edited the report Finalized by William Frias MD on 04/15/2025 11:00 AM Normal [facility] APTTon 03-29-2025 aPTT Coag (Bld) [Time] 59 s High 26-37 [facility] Comment on above: Performed By: #### T HYR, 3051-0 #### [facility] ([id number]) [address], [address] [place] [address] CBC WITH AUTO DIFFERENTIALon 03-29-2025 BASOPHILS ABSOLUTE COUNT (10*3/UL) BY AUTOMATED COUNT 0.0 10*3/uL Normal 0.0-0.2 [facility] Comment on above: Performed By: #### C BCA #### [facility] ([facility]) [address] [place] [address]. [place] [address] VIR BASOPHILS RELATIVE PERCENT BY AUTOMATED COUNT 0.5 % Normal [facility] Comment on above: Performed By: #### C BCA #### [facility] ([address] [place] [address] VIR CELLAVISION DIFFERENTIAL TYPE AUTOMATED DIFFERENTIAL Normal [facility] Comment on above: Performed By: #### C BCA #### [facility] ([address] [place] [address] VIR Eosinophils (Bld) [#/Vol] 0.0 10*3/uL Normal 0.0-0.4 [facility] Comment on above: Performed By: #### C BCA #### [facility] ([address] [place] [address] VIR EOSINOPHILS RELATIVE PERCENT BY AUTOMATED COUNT 0.6 % Normal [facility] Comment on above: Performed By: #### C BCA #### [facility] ([address] [place] [address] VIR Erythrocyte distribution width (RBC) [Ratio] 15.0 % Normal 11.5-15 [facility] Comment on above: Performed By: #### C BCA #### [facility] ([address] [address] VIR Hematocrit (Bld) [Volume fraction] 42.7 % Normal 39-50 [facility] Comment on above: Performed By: #### C BCA #### [facility] ([address] [place] [address] VIR Hemoglobin (Bld) [Mass/Vol] 14.5 g/dL Normal 13-17 [facility] Comment on above: Performed By: #### C BCA #### [facility] ([address] [place] [address] VIR LYMPHOCYTES ABSOLUTE COUNT (10*3/UL) BY AUTOMATED COUNT 0.6 10*3/uL Low 1.0-3.5 [facility] Comment on above: Performed By: #### C BCA #### [facility] ([address] [place] [address] VIR LYMPHOCYTES RELATIVE PERCENT BY AUTOMATED COUNT 6.8 % Normal [facility] Comment on above: Performed By: #### C BCA #### [facility] ([address] [place] [address] VIR MCH (RBC) [Entitic mass] 28.0 pg Normal 27-34 [facility] Comment on above: Performed By: #### C BCA #### [facility] ([address] [address] VIR MCHC (RBC) [Mass/Vol] 33.9 g/dL Normal 32-36 [facility] Comment on above: Performed By: #### C BCA #### [facility] ([address] [address] VIR MCV (RBC) [Entitic vol] 83 fL Normal 80-100 [facility] Comment on above: Performed By: #### C BCA #### [facility] ([address] [address] VIR MONOCYTES ABSOLUTE COUNT (10*3/UL) BY AUTOMATED COUNT 0.3 10*3/uL Normal 0.0-0.9 [facility] Comment on above: Performed By: #### C BCA #### [facility] ([address] [address] VIR MONOCYTES RELATIVE PERCENT BY AUTOMATED COUNT 3.6 % Normal [facility] Comment on above: Performed By: #### C BCA #### [facility] ([address] [address] VIR NEUTROPHILS ABSOLUTE COUNT BY AUTOMATED COUNT 7.4 10*3/uL High 1.5-6.6 [facility] Comment on above: Performed By: #### C BCA #### [facility] ([address] [address] VIR NEUTROPHILS RELATIVE PERCENT BY AUTOMATED COUNT 88.5 % Normal [facility] Comment on above: Performed By: #### C BCA #### [facility] ([address] [place] [address] VIR Platelet mean volume (Bld) [Entitic vol] 6.8 fL Low 7-12 [facility] Comment on above: Performed By: #### C BCA #### [facility] ([address] [place] [address] VIR Platelets (Bld) [#/Vol] 211 10*3/uL Normal 150-450 [facility] Comment on above: Performed By: #### C BCA #### [facility] ([address] [address] VIR RBC COUNT 5.17 X10E12/L Normal 4.1-5.7 [facility] Comment on above: Performed By: #### C BCA #### [facility] ([address] [address] VIR WBC (Bld) [#/Vol] 8.3 10*3/uL Normal 4-11 [facility] Comment on above: Performed By: #### C BCA #### [facility] ([address] [address] VIR COMPREHENSIVE METABOLIC PANE John 03-29-2025 Albumin [Mass/Vol] 4.1 g/dL Normal 3.2-5.3 [facility] Comment on above: Performed By: #### T CHRISTIAN, 305-0 #### [facility] ([id number]) [address], [address] [place] [address] ALP [Catalytic activity/Vol] 153 U/L High 39-130 [facility] Comment on above: Performed By: #### T HYR, 305-0 #### [facility] ([id number]) [address] [place] [address] ALT [Catalytic activity/Vol] 12 U/L Normal <=40 [facility] Comment on above: Performed By: #### Viktor GONZALES, #### [facility] ([id number]) [address], [address] [place] [address] Anion gap [Moles/Vol] 10 mmol/L Normal 5-15 [facility] Comment on above: Performed By: #### Viktor GONZALES #### [facility] ([id number]) [address], [address] [place] [address] AST [Catalytic activity/Vol] 17 U/L Normal <=41 [facility] Comment on above: Performed By: #### Viktor GONZALES, #### [facility] ([id number]) [address], [address] [place] [address] Bilirubin [Mass/Vol] 0.9 mg/dL Normal 0.3-1.2 [facility] Comment on above: Performed By: #### Viktor GONZALES, #### [facility] ([id number]) [address], [address] [place] [address] Calcium [Mass/Vol] 8.9 mg/dL Normal 8.5-10.5 [facility] Comment on above: Performed By: #### Viktor GONZALES #### [facility] ([id number]) [address], [address] [place] [address] Chloride [Moles/Vol] 107 mmol/L Normal 98-109 [facility] Comment on above: Performed By: #### Viktor GONZALES, #### [facility] ([id number]) [address], [address] [place] [address] CO2 [Moles/Vol] 21 mmol/L Low 22-32 [facility] Comment on above: Performed By: #### Viktor GONZALES, #### [facility] ([id number]) [address], [address] [place] [address] Creatinine [Mass/Vol] 1.34 mg/dL High 0.70-1.20 [facility] Comment on above: Result Comment: METH OD TRACEABLE TO IDMS STANDARD Performed By: #### T CHRISTIAN, 0 #### [facility] ([id number]) [address], [address] [place] [address] GFR/1.73 sq M.predicted among non-blacks MDRD (S/P/Bld) [Vol rate/Area] 54 mL/min/{1.73_m2} Low >=60 [facility] Comment on above: Result Comment: eGFR not reported due to non-numeric value for Creatinine. Reported eGFR is based on the CKD-EPI 2020 equation that does not use a race coefficient. Performed By: #### T CHRISTIAN, 0 #### [facility] ([id number]) [address] [address] [place] [address] Glucose [Mass/Vol] 162 mg/dL High 65-99 [facility] Comment on above: Performed By: #### T CHRISTIAN, #### [facility] ([id number]) [address] [address] [place] [address] Potassium [Moles/Vol] 4.1 mmol/L Normal 3.5-5.0 [facility] Comment on above: Performed By: #### T CHRISTIAN, 0 #### [facility] ([id number]) [address], [address] [place] [address] Protein [Mass/Vol] 7.4 g/dL Normal 6.0-8.0 [facility] Comment on above: Performed By: #### T CHRISTIAN, 0 #### [facility] ([id number]) [address], [address] [place] [address] Sodium [Moles/Vol] 138 mmol/L Normal 134-146 [facility] Comment on above: Performed By: #### T HYR, 3051-0 #### [facility] ([id number]) [address], [address] [place] [address] Urea nitrogen [Mass/Vol] 19 mg/dL Normal 5-27 [facility] Comment on above: Performed By: #### T HYR, 3051-0 #### [facility] ([id number]) [address] [place] [address] CT ABDOMEN AND PELVIS WO CON Ton 03-29-2025 CT ABDOMEN AND PELVIS WO CONT CT ABDOMEN AND PELVIS WO CONT History: Right-sided abdominal pain. Fall one week ago. Exam/Technique: Images are obtained through the abdomen and pelvis without either IV or oral contrast. Comparison: None Findings: There is no evidence of active pulmonary disease in the lung bases. There is mild right renal collecting system dilatation and mild dilatation of the proximal right ureter, extending down to a 3 mm diameter calculus in the midportion of the right ureter. There is ectasia and minimal aneurysmal dilatation of the infrarenal abdominal aorta. Maximum diameter of just 3.1 cm. Lack of contrast of course significantly compromises their assessment, but as seen with this technique, the liver, spleen, pancreas, adrenal glands, and left kidney display no significant abnormalities. There is no collecting system dilatation in the left kidney.Status post cholecystectomy. No left ureteral, or bladder calculi are seen, and the unopacified urinary bladder displays no other gross abnormalities. Small left inguinal hernia is demonstrated with the sac containing only fat. No dilatation or other gross abnormalities of the unopacified bowel loops are demonstrated. There is no free intraperitoneal fluid or gas and no gross abnormal fluid collections. IMPRESSION: Mild right hydronephrosis with 3 mm calculus in the midportion of the right ureter. All CT scans at this facility use dose modulation, iterative reconstruction, and/or weight based dosing when appropriate to reduce radiation dose to as low as reasonably achievable. Finalized by Edilberto Eckert MD on 03/29/2025 10:20 AM Normal [facility] CT BRAIN WO CONTon 08-22-[address] BRAIN WO CONT CT BRAIN WO CONT CT BRAIN WO CONT: 03/29/2025 9:56 AM CLINICAL INFORMATION: vomiting previous head injury TECHNIQUE: CT Head without intravenous contrast. Coronal sagittal reformatted images were also obtained. All CT scans at this facility use dose modulation, iterative reconstruction, and/or weight based dosing when appropriate to reduce radiation dose to as low as reasonably achievable. COMPARISON: No relevant prior studies available. FINDINGS: The ventricular system is normal in caliber. No large vessel territory infarct or acute intracranial hemorrhage. No extra-axial fluid collection. No midline shift. Scott-white matter differentiation is maintained. No effacement of the basal cisterns. The calvarium is intact. Paranasal sinuses are well pneumatized. IMPRESSION: * No acute intracranial abnormality K Finalized by Meena Tran MD on 03/29/2025 10:01 AM Normal [facility] CT CHEST WO CONTon 5 CT CHEST WO CONT CT CHEST WO CONT CT CHEST WO CONT CLINICAL INFORMATION: right sided pain s/p fall 1 week ago. COMPARISON: None. PROCEDURE: Routine CT chest obtained without contrast. Multiplanar reformats obtained from the axial data. All CT scans at this facility use dose modulation, iterative reconstruction, and/or weight based dosing when appropriate to reduce radiation dose to as low as reasonably achievable. Computer aided detection for pulmonary nodules was performed utilizing [employer] software. FINDINGS: Please note, assessment of the vascular/cardiac structures is limited without contrast. Bibasilar atelectasis, minimal scarring. Some calcified granulomas are present. No effusions. Atherosclerotic calcifications in the aorta which is mildly ectatic. The pulmonary arteries are of normal caliber. No enlarged lymph nodes. No evidence of acute fracture. Degenerative changes. IMPRESSION: * No acute traumatic findings in the chest. Finalized by Mekhi Shook MD on 03/29/2025 10:10 AM Normal [facility] CT FACIAL BONES WO CONTon CT FACIAL BONES WO CONT CT FACIAL BONES WO CONT History: Pain following Exam/Technique: Thin axial images through the facial bones were obtained. Study was supplemented by sagittal and coronal reconstructed images. Automated exposure control was utilized. Comparison: None Findings: There is no evidence for an acute osseous abnormality. No facial bone fractures are seen. The orbital floors are intact. The paranasal sinuses are well aerated. IMPRESSION: Normal CT facial bones. Finalized by Siddhartha Alexander MD on 03/29/2025 10:03 AM Normal [facility] CT LUMBAR SPINE WO CONTon CT LUMBAR SPINE WO CONT CT LUMBAR SPINE WO CONT CT LUMBAR SPINE WO CONT CLINICAL INFORMATION: back pain s/p fall. COMPARISON: None. PROCEDURE: Routine lumbosacral spine protocol CT was obtained without intravenous contrast. Sagittal and coronal reformatted images were obtained from the axial data. All CT scans at this facility use dose modulation, iterative reconstruction, and/or weight based dosing when appropriate to reduce radiation dose to as low as reasonably achievable. FINDINGS: Degenerative changes, no fracture. Vacuum disc phenomenon, anterior osteophyte formation. Vascular calcifications and aortic ectasia. IMPRESSION: * No fracture or malalignment. * Multilevel degenerative changes. Finalized by Mekhi Shook MD on 03/29/2025 10:18 AM Normal [facility] LIPASEon 03-29-2025 Lipase [Catalytic activity/Vol] 30 U/L Normal 17-40 [facility] Comment on above: Performed By: #### T CHRISTIAN, 3050-0 #### [facility] ([id number]) [address], [address] [place] [address] POCT NURSING URINE MACROSCOP IC UAon 03-29-2025 BILIRUBIN FERNANDEZ Negative Normal Negative [facility] Comment on above: Performed By: #### T BARBARAR, 3050-0 #### [facility] ([id number]) [address], [address] [place] [address] BLOOD/HGB FERNANDEZ Large Abnormal Negative [facility] Comment on above: Performed By: #### T BARBARAR, 3050-0 #### [facility] ([id number]) [address], [address] [place] [address] GLUCOSE FERNANDEZ Negative Normal Negative [facility] Comment on above: Performed By: #### T HYR, #### [facility] ([id number]) [address], [address] [place] [address] KETONES FERNANDEZ Negative Normal Negative [facility] Comment on above: Performed By: #### Viktor GONZALES, #### [facility] ([id number]) [address], [address] [place] [address] LEUKOCYTE ESTERASE FERNANDEZ Negative Normal Negative [facility] Comment on above: Performed By: #### Viktor GONZALES #### [facility] ([id number]) [address], [address] [place] [address] NITRITE FERNANDEZ Negative Normal Negative [facility] Comment on above: Performed By: #### Viktor GONZALES, #### [facility] ([id number]) [address], [address] [place] [address] PH FERNANDEZ 6.5 Normal 5.0, 6.0, 6.5, 7.0, 7.5, 8.0, 8.5, 5.5 [facility] Comment on above: Performed By: #### Viktor GONZALES, #### [facility] ([id number]) [address], [address] [place] [address] PROTEIN FERNANDEZ Trace Abnormal Negative [facility] Comment on above: Performed By: #### Viktor GONZALES, #### [facility] ([id number]) [address], [address] [place] [address] SPECIFIC GRAVITY FERNANDEZ 1.025 Normal 1.010, 1.015, 1.020, 1.025 [facility] Comment on above: Performed By: #### Viktor GONZALES, #### [facility] ([id number]) [address], [address] [place] [address] UROBILINOGEN FERNANDEZ 0.2 E.U./dL Normal [facility] Comment on above: Performed By: #### T HYR, 3051-0 #### [facility] ([id number]) [address] [place] [address], [address] [place] [address] PROTIME AND INRon 03-29-2025 INR 1.2 Normal 0.9-1.2 [facility] Comment on above: Performed By: #### P INR #### [facility] ([facility]) [address] [place] [address] VIR PT Coag (PPP) [Time] 14.2 s High 9.8-13.2 [facility] Comment on above: Performed By: #### P INR #### [facility] ([address] [address] VIR TROP I, HIGH SENSITIVITY 1 H OURon 03-29-2025 TROPONIN I, HIGH SENSITIVITY 6 ng/L Normal <21 [facility] Comment on above: Performed By: #### C TRACE CBCA #### [facility] ([id number]) [address] [place] [address] TROPONIN I, HIGH SENSITIVITY 0 HOURon 03-29-2025 TROPONIN I, HIGH SENSITIVITY 4 ng/L Normal <21 [facility] Comment on above: Performed By: #### T HYR, 3051-0 #### [facility] ([id number]) [address] [place] [address], [address] [place] [address] URINE CULTUREon 03-29-2025 Bacteria identified Cx Nom (U) CULTURE RESULTS <10,000 ORGANISMS/mL NORMAL URO GENITAL TAMMY Normal [facility] Comment on above: Performed By: #### C TRACE CBCA #### [facility] ([id number]) [address] [place] [address] No Panel Informationon 03-12 Type of biopsy: tangential Informed consent: discussed and consent obtained Informed consent comment: The risks and benefits of the biopsy were discussed. Risks include but are not limited to bleeding, infection, scarring, pain, and nerve damage. An opportunity to ask questions prior to the procedure was permitted and all questions were answered. Patient was prepped and draped in usual sterile fashion: area cleansed with alcohol. Anesthesia: the lesion was anesthetized in a standard fashion Anesthetic: 1% lidocaine w/ epinephrine 1-100,000 buffered w/ 8.4% NaHCO3 Instrument used: DermaBlade Hemostasis achieved with: electrodesiccation Outcome: patient tolerated procedure well Outcome comment: The specimen was placed in a prelabeled formalin container to be sent for pathology Post-procedure details: sterile dressing applied and wound care instructions given Post-procedure details comment: Emphasized need to contact clinic for any signs of infection, uncontrollable bleeding, or complications. Dressing type: bandage Additional details: Photo taken Amount of lidocaine used: [facility] Type of biopsy: tangential Informed consent: discussed and consent obtained Informed consent comment: The risks and benefits of the biopsy were discussed. Risks include but are not limited to bleeding, infection, scarring, pain, and nerve damage. An opportunity to ask questions prior to the procedure was permitted and all questions were answered. Patient was prepped and draped in usual sterile fashion: area cleansed with alcohol. Anesthesia: the lesion was anesthetized in a standard fashion Anesthetic: 1% lidocaine w/ epinephrine 1-100,000 buffered w/ 8.4% NaHCO3 Instrument used: DermaBlade Hemostasis achieved with: electrodesiccation Outcome: patient tolerated procedure well Outcome comment: The specimen was placed in a prelabeled formalin container to be sent for pathology Post-procedure details: sterile dressing applied and wound care instructions given Post-procedure details comment: Emphasized need to contact clinic for any signs of infection, uncontrollable bleeding, or complications. Dressing type: bandage Additional details: Photo taken Amount of lidocaine used: [facility] Type of biopsy: tangential Informed consent: discussed and consent obtained Informed consent comment: The risks and benefits of the biopsy were discussed. Risks include but are not limited to bleeding, infection, scarring, pain, and nerve damage. An opportunity to ask questions prior to the procedure was permitted and all questions were answered. Patient was prepped and draped in usual sterile fashion: area cleansed with alcohol. Anesthesia: the lesion was anesthetized in a standard fashion Anesthetic: 1% lidocaine w/ epinephrine 1-100,000 buffered w/ 8.4% NaHCO3 Instrument used: DermaBlade Hemostasis achieved with: electrodesiccation Outcome: patient tolerated procedure well Outcome comment: The specimen was placed in a prelabeled formalin container to be sent for pathology Post-procedure details: sterile dressing applied and wound care instructions given Post-procedure details comment: Emphasized need to contact clinic for any signs of infection, uncontrollable bleeding, or complications. Dressing type: bandage Additional details: Photo taken Amount of lidocaine used: [address] [place] [address] [facility] [employer] Ambulatory Visit Summaryon 0 02-25-2025 Ambulatory Visit Summary Ambulatory Visit Summary SINGH BOWMAN :1945 Visit Date:02/25/2025 Ambulatory Visit Instructions Your Diagnosis BPH with obstruction/lower urinary tract symptoms Anticoagulated Your Care Team Attending Physician - CARRIE PALMA, Medina Vazquez Primary Care Physician - RACHID PALMA, MARIELA Powell This Is Your Medications List finasteride (finasteride 5 mg Tab) Contact prescribing physician if questions or concerns apixaban (Eliquis 5 mg oral tablet) atorvastatin (atorvastatin 20 mg Tab) diltiazem (DilTIAZem (Eqv-Cardizem CD) 180 mg/24 hours oral capsule, extended release) methimazole (methimazole 10 mg Tab) tamsulosin (tamsulosin 0.4 mg Cap) Procedures Performed TURP - Transurethral resection of prostate (11/01/2024), Cystoscopy (09/11/2024), Appendectomy, Cataracts, Cholecystectomy, Colonoscopy, Tonsillectomy. Discharge Vitals Heart Rate (Peripheral) 70 Respiratory Rate 18 Blood Pressure 120/68 Height 188 cm Height 74 in Weight 93.5 kg Weight 206.132 lb BMI 26.45 What to do next You Need to Schedule the Following Appointments Follow Up with CARRIE PALMA, Medina Vazquez, URDaily When: Where: [facility] [address] [place] [address]- Medications What How Much When Instructions Changed finasteride (finasteride 5 mg Tab) 5 Milligram By Mouth 2 times a day Duration: 90 Days Pickup at [facility] 4447 Unchanged apixaban (Eliquis 5 mg oral tablet) 1 Tablets Contact prescribing physician if questions or concerns Unchanged atorvastatin (atorvastatin 20 mg Tab) 1 Tablets Contact prescribing physician if questions or concerns Unchanged diltiazem (DilTIAZem (Eqv-Cardizem CD) 180 mg/ 24 hours oral capsule, extended release) 1 Capsules Contact prescribing physician if questions or concerns Unchanged methimazole (methimazole 10 mg Tab) 1 Tablets Contact prescribing physician if questions or concerns Unchanged tamsulosin (tamsulosin 0.4 mg Cap) 1 Capsules Contact prescribing physician if questions or concerns Pharmacy Information [facility]29: [address] [place], [place] [id number] [phone] Allergies No Known Allergies Problems Ongoing - Any problem that you are currently receiving treatment for. 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 Please share your experience with us by completing your survey. We appreciate your feedback and thank you for choosing us for your care. Education Materials Benign Prostatic Hyperplasia Benign prostatic hyperplasia (BPH) [...] or symptoms? Symptoms of this condition include: ??? Getting up often during the night to urinate. ??? Needing to urinate frequently during the day. ??? Difficulty starting urine flow. ??? Decrease in size and strength of your urine stream. ??? Leaking (dribbling) after urinating. ??? Inability to pass urine. This needs immediate treatment. ??? Inability to completely empty your bladder. ??? Pain when you pass urine. This is more common if there is also an infection. ??? Urinary tract infection (UTI). How is this diagnosed? This condition is diagnosed based on your medical history, a physical exam, and your symptoms. Tests will also be done, such as: ??? A post-void bladder scan. This measures any amount of urine that may remain in your bladder after you finish urinating. ??? A digital rectal exam. In a rectal exam, your health care provider checks your prostate by putting a lubricated, gloved finger into your rectum to feel the back of your prostate gland. This exam detects the size of your gland and any abnormal lumps or growths. ??? An (more content not included)... Normal [facility] Urology Office/Clinic Noteon 02-25-2025 Urology Office/Clinic Note Urology Office/Clinic Note Chief Complaint follow up after restarting finastride HPI Staff 3 month f/u to restarting Finasteride. Dx: BPH with obstruction/LUTS, gross hematuria and anticoagulated Finasteride 5mg qd and Flomax qd IPSS: 8 pt denies pain/burning denies visible blood denies flank pain pt complains of nocturia about 3 time nightly History of Present Illness Tests reviewed: UA I have reviewed the previous health record [...] HPI. Physical Exam Vitals & Measurements HR: 70(Peripheral) RR: 18 BP: 120/68 HT: 188 cm HT: 74 in WT: 93.5 kg WT: 206.132 lb BMI: 26.45 General Appearance: alert, no distress, well nourished, well developed adult. Assessment/Plan Pt here with his today. Pt does have mild dementia but is a good historian. also assisted with history. [1] 1. BPH with obstruction/lower urinary tract symptoms (N40.1: Benign prostatic hyperplasia with lower urinary tract symptoms) PSA: 08/17/24 - 0.99 S/p TURP 11/01/24 - Neg. UA neg. IPSS 8 (7). Taking Finasteride 5 mg qd and Flomax 0.4 mg qd. Overall doing much better after the TURP but waking 3x/night still. Has not tried bid Flomax. Feels he empties completely. No urgency or incontinence. Does timed voids q1.5hr, this is helping prevent urgency episodes. If pt is still having bothersome urinary sx, may consider a different prostate procedure. Follow up 1 yr no labs or sooner if needed. Pt understands and agrees with plan. -Increase Flomax to bid, SEs discussed, sent to -Cont Finasteride (will help minimize bleeding) -Cont PSA management with PCP -Cont timed voids q2-3hr during the day regardless of sensation -Call office if pt develops infection or infection sx 2. Anticoagulated (Z79.01: correction (current) use of anticoagulants) Eliquis, afib. S/p ablation 08/2022. Normal sinus rhythm since ablation but procedure put him into afib. [2] reports pt is no longer in Afib and is going to have watchman. Follow-up With When Contact Information CARRIE PALMA, Medina Vazquez, URL [facility] [address], [place] [address]- Additional Instructions: 1 yr no labs Patient Education Benign Prostatic Hyperplasia I, Sofy Harrison, personally scribed for Dr. Butler on 02/25/2025 14:09:11. . Documentation recorded by the scribe, Sofy Harrison, accurately reflects the services(s) I performed and decisions made by me. Authenticated by Dr. Butler on 02/25/2025 14:10:23. 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 Medications atorvastatin 20 mg Tab, 20 mg= 1 tab(s) DilTIAZem (Eqv-Cardizem CD) 180 mg/24 hours oral capsule, extended release, 180 mg= 1 cap(s) Eliquis 5 mg oral tablet, 5 mg= 1 tab(s) finasteride 5 mg Tab, 5 mg, Oral, Daily, 11 refills methimazole 10 mg Tab, 10 mg= 1 tab(s) tamsulosin 0.4 mg Cap, 0.4 mg= 1 cap(s) Allergies No Known Allergies Social History Alcohol Never., 09/10/2024 Substance Abuse Never., 09/10/2024 Tobacco Former smoker, quit more than 30 days ago, 25 years Tobacco Use:. Never Smokeless Tobacco Use:. Cigarettes, Yes, 02/25/2025 Family History Arthritis: Mother. Breast cancer: Sister.Negative: Mother. Heart disease: Mother and Father. High cholesterol: Mother and Father. Hypertension: Mother and Father. Immunizations Vaccine Date Status Comments influenza virus vaccine, inactivated 06/15/2024 Recorded influenza virus vaccine, inactivated 05/05/2023 Recorded zoster vaccine, inactivated 04/04/2023 Recorded zoster vaccine, inactivated 02/01/2023 Recorded influenza virus vaccine, inactivated 05/17/2022 Recorded SARS-CoV-2 (COVID-19) mRNA-1273 vaccine 08/12/2021 Recorded influenza virus vaccine, inactivated 06/23/2021 Recorded SARS-CoV-2 (COVID-19) mRNA-1273 vaccine 10/09/2020 Skip (more content not included)... Normal [facility] Comment on above: Result Comment: Elec tronically Signed By: Medina BUTLER MD\.br\Date and Time Signed: 02/25/25 14:10 EDT\.br\Electronically Co-Signed By: Sofy Harrison\.br\Date and Time Co-Signed: 02/25/25 14:09 EDT T3, FREEon 02-19-2025 Free T3 [Mass/Vol] 4.16 pg/mL High 2.50-3.90 [facility] Comment on above: Performed By: #### F T3 #### [facility] ([facility]) [address] [place] [address] VIR THYROID PROFILE INCLUDES TSH FT4on 02-19-2025 Free T4 [Mass/Vol] 0.67 ng/dL Normal 0.61-1.60 [facility] Comment on above: Performed By: #### T HYR #### [facility] ([facility]) [address] [place] [address] VIR TSH 20.09 uIU/mL High 0.49-4.67 [facility] Comment on above: Performed By: #### T HYR #### [facility] ([facility]) [address] [place] [address] VIR POCT EKGon 02-13-2025 [facility] CBC AND AUTO DIFFon 11-30-20 25 ABSOLUTE BASOPHIL 0.1 X10E9/L Normal 0.0-0.2 [facility] Comment on above: Performed By: #### C MP, CBCA #### [facility] ([id number]) [address] [place] [address]150 ABSOLUTE NEUTROPHIL 4.9 X10E9/L Normal 1.5-6.6 [facility] Comment on above: Performed By: #### C MP, CBCA #### [facility] ([id number]) [address] [place] [address] 89285 Basophils/100 WBC (Bld) 0.7 % Normal [facility] Comment on above: Performed By: #### C MP, CBCA #### [facility] ([id number]) [address] [place] [address] 62688 Eosinophils (Bld) [#/Vol] 0.4 10*3/uL Normal 0.0-0.4 [facility] Comment on above: Performed By: #### C MP, CBCA #### [facility] ([id number]) [address] [place] [address] 37741 Eosinophils/100 WBC (Bld) 5.1 % Normal [facility] Comment on above: Performed By: #### C MP, CBCA #### [facility] ([id number]) [address] [place] [address] 12162 Erythrocyte distribution width (RBC) [Ratio] 16.6 % High 11.5-15.0 [facility] Comment on above: Performed By: #### C MP, CBCA #### [facility] ([id number]) [address] [place] [address] 66637 Hematocrit (Bld) [Volume fraction] 38.1 % Low 39-49 [facility] Comment on above: Performed By: #### C MP, CBCA #### [facility] ([id number]) [address] [place] [address] 99137 Hemoglobin (Bld) [Mass/Vol] 12.9 g/dL Low 13.0-17.0 [facility] Comment on above: Performed By: #### C MP, CBCA #### [facility] ([id number]) [address] [place] [address] 08480 Lymphocytes (Bld) [#/Vol] 1.3 10*3/uL Normal 1.0-3.5 [facility] Comment on above: Performed By: #### C MP, CBCA #### [facility] ([id number]) [address] [place] [address] 82045 Lymphocytes/100 WBC (Bld) 18.2 % Normal [facility] Comment on above: Performed By: #### C MP, CBCA #### [facility] ([id number]) [address] [place] [address] 98572 MCH (RBC) [Entitic mass] 29.0 pg Normal 27-34 [facility] Comment on above: Performed By: #### C MP, CBCA #### [facility] ([id number]) [address] [place] [address] 31582 MCHC (RBC) [Mass/Vol] 33.7 g/dL Normal 32-36 [facility] Comment on above: Performed By: #### C MP, CBCA #### [facility] ([id number]) [address] [place] [address] 24822 MCV (RBC) [Entitic vol] 86 fL Normal 80-100 [facility] Comment on above: Performed By: #### C MP, CBCA #### [facility] ([id number]) [address] [place] [address] 07315 Monocytes (Bld) [#/Vol] 0.4 10*3/uL Normal 0-0.9 [facility] Comment on above: Performed By: #### C MP, CBCA #### [facility] ([id number]) [address] [place] [address] 28818 Monocytes/100 WBC (Bld) 5.8 % Normal [facility] Comment on above: Performed By: #### C MP, CBCA #### [facility] ([id number]) [address] [place] [address] 15381 Neutrophils/100 WBC (Bld) 70.2 % Normal [facility] Comment on above: Performed By: #### C MP, CBCA #### [facility] ([id number]) [address] [place] [address] 09802 Platelet mean volume (Bld) [Entitic vol] 6.7 fL Low 7-12 [facility] Comment on above: Performed By: #### C MP, CBCA #### [facility] ([id number]) [address] [place] [address] 95300 Platelets (Bld) [#/Vol] 259 10*3/uL Normal 150-450 [facility] Comment on above: Performed By: #### C MP, CBCA #### [facility] ([id number]) [address] [place] [address] 95700 RBC COUNT 4.43 X10E12/L Normal 4.10-5.70 [facility] Comment on above: Performed By: #### C MP, CBCA #### [facility] ([id number]) [address] [place] [address] 81781 WBC (Bld) [#/Vol] 7.0 10*3/uL Normal 4.0-11.0 [facility] Comment on above: Performed By: #### C MP, CBCA #### [facility] ([id number]) [address] [place] [address] 65915 COMPREHENSIVE METABOLIC PANE John 11-30-2024 Albumin [Mass/Vol] 3.8 g/dL Normal 3.2-5.3 [facility] Comment on above: Performed By: #### C MP, CBCA #### [facility] ([id number]) [address] [place] [address] 76084 ALP [Catalytic activity/Vol] 187 U/L High 39-130 [facility] Comment on above: Performed By: #### C MP, CBCA #### [facility] ([id number]) [address] [place] [address] 88427 ALT [Catalytic activity/Vol] 15 U/L Normal 0-40 [facility] Comment on above: Performed By: #### C MP, CBCA #### [facility] ([id number]) [address] [place] [address] 21660 Anion gap [Moles/Vol] 7 mmol/L Normal 5-15 [facility] Comment on above: Performed By: #### C MP, CBCA #### [facility] ([id number]) [address] [place] [address] 30752 AST [Catalytic activity/Vol] 19 U/L Normal 0-41 [facility] Comment on above: Performed By: #### C MP, CBCA #### [facility] ([id number]) [address] [place] [address] 91453 Bilirubin [Mass/Vol] 0.8 mg/dL Normal 0.3-1.2 [facility] Comment on above: Performed By: #### C TRACE, CBCA #### [facility] ([id number]) [address] [place] [address] 61182 Calcium [Mass/Vol] 8.7 mg/dL Normal 8.5-10.5 [facility] Comment on above: Performed By: #### C TRACE, CBCA #### [facility] ([id number]) [address] [place] [address] 98013 Chloride [Moles/Vol] 108 mmol/L Normal 98-109 [facility] Comment on above: Performed By: #### C MP, CBCA #### [facility] ([id number]) [address] [place] [address] 38431 CO2 [Moles/Vol] 23 mmol/L Normal 22-32 [facility] Comment on above: Performed By: #### C MP, CBCA #### [facility] ([id number]) [address] [place] [address] 04172 Creatinine [Mass/Vol] 1.24 mg/dL High 0.70-1.20 [facility] Comment on above: Result Comment: METH OD TRACEABLE TO IDMS STANDARD Performed By: #### C MP, CBCA #### [facility] ([id number]) [address] [place] [address] 77032 GFR/1.73 sq M.predicted among non-blacks MDRD (S/P/Bld) [Vol rate/Area] 59 mL/min/{1.73_m2} Low >59 [facility] Comment on above: Result Comment: Reported eGFR is based on the CKD-EPI 2020 equation that does not use a race coefficient. Performed By: #### C MP, CBCA #### [facility] ([id number]) [address] [place] [address] 00976 Glucose [Mass/Vol] 154 mg/dL High 65-99 [facility] Comment on above: Performed By: #### C TRACE, CBCA #### [facility] ([id number]) [address] [place] [address] 71651 Potassium [Moles/Vol] 3.8 mmol/L Normal 3.5-5.0 [facility] Comment on above: Performed By: #### C MP, CBCA #### [facility] ([id number]) [address] [place] [address] 16708 Protein [Mass/Vol] 7.1 g/dL Normal 6.0-8.0 [facility] Comment on above: Performed By: #### C MP, CBCA #### [facility] ([id number]) [address] [place] [address] 57027 Sodium [Moles/Vol] 138 mmol/L Normal 134-146 [facility] Comment on above: Performed By: #### C MP, CBCA #### [facility] ([id number]) [address] [place] [address] 67033 Urea nitrogen [Mass/Vol] 15 mg/dL Normal 5-27 [facility] Comment on above: Performed By: #### C MP, CBCA #### [facility] ([id number]) [address] [place] [address] 43920 Lactate (P júnior) [Moles/Vol]o n 11-30-2024 LACTATE W/REFLEX 1.7 mmol/L Normal 0.4-2.0 [facility] Comment on above: Result Comment: Result did not trigger repeat Lactate, re-order if needed. Performed By: #### 3 2133-1 #### [facility] ([id number]) [address] [place] [address] 96008 FERNANDEZ FECAL OCCULT BLDon 11-30 Hemoglobin.gastrointe stinal Ql (Stl) Positive Abnormal NEG [facility] Comment on above: Performed By: #### 2 335-8 #### [facility] ([id number]) [address] [place] [address] 62875 Ambulatory Visit Summaryon 0 11-16-2024 Ambulatory Visit Summary Ambulatory Visit Summary SINGH BOWMAN :1945 Visit Date:11/16/2024 Ambulatory Visit Instructions Your Diagnosis BPH with obstruction/lower urinary tract symptoms Gross hematuria Anticoagulated Your Care Team Attending Physician - Medina BUTLER MD Primary Care Physician - MARIELA RASHID MD This Is Your Medications List finasteride tamsulosin (tamsulosin 0.4 mg Cap) Contact prescribing physician if questions or concerns apixaban (Eliquis 5 mg oral tablet) atorvastatin (atorvastatin 20 mg Tab) diltiazem (DilTIAZem (Eqv-Cardizem CD) 180 mg/24 hours oral capsule, extended release) methimazole (methimazole 10 mg Tab) Procedures Performed TURP - Transurethral resection of prostate (11/01/2024), Cystoscopy (09/11/2024), Appendectomy, Cataracts, Cholecystectomy, Colonoscopy, Tonsillectomy. Discharge Vitals Temperature (Temporal Artery) 37 ???C Heart Rate (Peripheral) 78 Respiratory Rate 17 Blood Pressure 110/62 Height 188 cm Height 74 in Weight 87.9 kg Weight 193.786 lb BMI 24.87 What to do next You Need to Schedule the Following Appointments Follow Up with CARRIE PALMA, Medina Vazquez, URL When: Where: [facility] [address], [place] [address]- Medications What How Much When Instructions Unchanged finasteride 5 Milligram By Mouth Every day Unchanged tamsulosin (tamsulosin 0.4 mg Cap) 1 Capsules Unchanged apixaban (Eliquis 5 mg oral tablet) 1 Tablets Contact prescribing physician if questions or concerns Unchanged atorvastatin (atorvastatin 20 mg Tab) 1 Tablets Contact prescribing physician if questions or concerns Unchanged diltiazem (DilTIAZem (Eqv-Cardizem CD) 180 mg/ 24 hours oral capsule, extended release) 1 Capsules Contact prescribing physician if questions or concerns Unchanged methimazole (methimazole 10 mg Tab) 1 Tablets Contact prescribing physician if questions or concerns Allergies No Known Allergies Problems Ongoing - Any problem that you are currently receiving treatment for. 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 Please share your experience with us by completing your survey. We appreciate your feedback and thank you for choosing us for your care. Education Materials Benign Prostatic Hyperplasia Benign prostatic hyperplasia (BPH) [...] or symptoms? Symptoms of this condition include: ??? Getting up often during the night to urinate. ??? Needing to urinate frequently during the day. ??? Difficulty starting urine flow. ??? Decrease in size and strength of your urine stream. ??? Leaking (dribbling) after urinating. ??? Inability to pass urine. This needs immediate treatment. ??? Inability to completely empty your bladder. ??? Pain when you pass urine. This is more common if there is also an infection. ??? Urinary tract infection (UTI). How is this diagnosed? This condition is diagnosed based on your medical history, a physical exam, and your symptoms. Tests will also be done, such as: ??? A post-void bladder scan. This measures any amount of urine that may remain in your bladder after you finish urinating. ??? A digital rectal exam. In a rectal exam, your health care provider checks your prostate by putting a lubricated, gloved finger into your rectum to feel the back of your prostate gland. This exam detects the size of your gland and any abnormal lumps or growths. ??? An exam of your urine (urinalysis). ??? A prostate specific antigen (PSA) screening. This is a blood test used to screen for prostate cancer. ??? An ultrasound. This test uses so (more content not included)... Normal [facility] Urology Office/Clinic Noteon 11-16-2024 Urology Office/Clinic Note Urology Office/Clinic Note Chief Complaint Post Op TURP to review pathology. HPI Staff 79 yr old male here for PO TURP - Path rev Dx: BPH with obstruction/ lower urinary tract symptoms, bladder diverticulum *Tamsulosin 0.4mg qd, finasteride 5mg qd per PCP PCP monitoring PSA PSA 08/17/24 - 0.99 Pt is still having gross hematuria with what he states is slight discomfort with urination. Nocturia x2 States less frequency than before the procedure. History of Present Illness Tests reviewed: UA, op note, path I have reviewed the previous health record [...] Physical Exam Vitals & Measurements T: 37 ???C(Temporal Artery) HR: 78(Peripheral) RR: 17 BP: 110/62 HT: 188 cm HT: 74 in WT: 87.9 kg WT: 193.786 lb BMI: 24.87 General Appearance: alert, no distress, well nourished, well developed male. Assessment/Plan Pt accompanied with his today. Pt does have mild dementia but is a good historian. also assisted with history. 1. BPH with obstruction/lower urinary tract symptoms (N40.1: Benign prostatic hyperplasia with lower urinary tract symptoms) PSA: 08/17/24 - 0.99 S/p TURP 11/01/24 - Neg. Cath removed 11/05/24. IPSS 7 (26). Taking Flomax 0.4 mg qd. Stopped Finasteride 5 mg qd on Tuesday since he ran out of rx. Wasn't sure if he was to cont taking after TURP so he did not call. Slight sting as beginning of stream which is gradually improving. Voiding ~q2hr. He voids prior to getting urge. Reviewed path with pt. Follow up 3 mos with UA or sooner if needed. Pt understands and agrees with plan. -Cont Flomax and restart Finasteride (will help minimize bleeding) -Cont PSA management with PCP -Cont timed voids q2-3hr during the day regardless of sensation 2. Gross hematuria (R31.0: Gross hematuria) UA shows large blood and small leuks. Expected after TURP, will cont to monitor for resolution with time and healing. He has resumed his BT and does have dark red urine with mild clotting. Would be more of an issue if pt develops larger clots or unable to void. Normally can resume strenuous activity at this point, however, given degree of hematuria, cont to avoid. -Cont limiting physical/strenuous activity given degree of hematuria (avoid mowing lawn too), if urine clears, can slowly start to resume activity -Dramatically increase fluid intake, at least 6 bottles of water daily in addition to other fluids 3. Anticoagulated (Z79.01: correction (current) use of anticoagulants) Eliquis, afib. S/p ablation 08/2022. Normal sinus rhythm since ablation but procedure put him into afib. Has been monitoring at home and sinus rhythm has been normal the past 7 days. -Pt to discuss w cardiology if BT can be decrease or changed given #2 Follow-up With When Contact Information Medina BUTLER MD, URL [facility] [address], [place] [address]- Additional Instructions: 3 mos with UA Patient Education Benign Prostatic Hyperplasia I, Sofy Harrison, personally scribed for Dr. Butler on 11/16/2024 11:33:17. . Documentation recorded by the scribe, Sofy Harrison, accurately reflects the services(s) I performed and decisions made by me. Authenticated by Dr. Butler on 11/16/2024 11:42:10. 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 Medications atorvastatin 20 mg Tab, 20 mg= 1 tab(s) DilTIAZem (Eqv-Cardizem CD) 180 mg/24 hours oral capsule, extended release, 180 mg= 1 cap(s) Eliquis 5 mg oral tablet, 5 mg= 1 tab(s) finasteride, 5 mg, Oral, Daily methimazole 10 mg Tab, 10 mg= 1 tab(s) tamsulosin 0.4 mg Cap, 0.4 mg= 1 cap(s) Allergies No Known Allergies Social History Alcohol Never., 09/10/2024 Substance Abuse Never., 09/10/2024 Tobacco Former smoker, quit more than 30 days ago, 25 years Tobacco Use: (more content not included)... Normal [facility] Comment on above: Result Comment: Elec tronically Signed By: Medina BUTLER MD\.br\Date and Time Signed: 11/16/24 11:42 EDT\.br\Electronically Co-Signed By: Sofy Harrison P\.br\Date and Time Co-Signed: 11/16/24 11:33 EDT\.br\Electronically Co-Signed By: Sofy Harrison P\.br\Date and Time Co-Signed: 11/16/24 11:35 EDT\.br\Electronically Co-Signed By: Sofy Harrison P\.br\Date and Time Co-Signed: 11/16/24 11:36 EDT\.br\Electronically Co-Signed By: Sofy Harrison P\.br\Date and Time Co-Signed: 11/16/24 11:37 EDT FREE T3on 11-13-2024 Free T3 [Mass/Vol] 3.01 pg/mL Normal 2.50-3.90 [facility] Comment on above: Performed By: #### T HYR, 305-0 #### [facility] ([id number]) [address], [address] [place] [address] THYROID PROFILEon 11-13-2024 Free T4 [Mass/Vol] 0.97 ng/dL Normal 0.61-1.60 [facility] Comment on above: Performed By: #### T HYR, 3050-0 #### [facility] ([id number]) [address] [place] [address] TSH 0.09 uIU/mL Low 0.49-4.67 [facility] Comment on above: Performed By: #### T HYR, 3050-0 #### [facility] ([id number]) [address] [place] [address] POCT EKGon 11-07-2024 [facility] Ambulatory Visit Summaryon 0 11-05-2024 Ambulatory Visit Summary Ambulatory Visit Summary SINGH BOWMAN :1945 Visit Date:11/05/2024 Ambulatory Visit Instructions Your Care Team Attending Physician - Medina BUTLER MD Primary Care Physician - RACHID PALMA, MARIELA Powell This Is Your Medications List apixaban (Eliquis 5 mg oral tablet) atorvastatin (atorvastatin 20 mg Tab) ciprofloxacin (Cipro 500 mg Tab) finasteride metoprolol predniSONE (predniSONE 20 mg Tab) tamsulosin (tamsulosin 0.4 mg Cap) Procedures Performed Cystoscopy (09/11/2024), Appendectomy, Cataracts, Cholecystectomy, Colonoscopy, Tonsillectomy. What to do next Scheduled Follow-Up Appointments Tuesday 10:45 AM EDT With: Medina BUTLER MD Where: [facility] [place] [address]- Medications What How Much When Instructions Unchanged apixaban (Eliquis 5 mg oral tablet) 1 Tablets Unchanged atorvastatin (atorvastatin 20 mg Tab) 1 Tablets Unchanged ciprofloxacin (Cipro 500 mg Tab) 1 Tablets By Mouth Every day take one tab day before procedure and one tab after procedure Unchanged finasteride 5 Milligram By Mouth Every day Unchanged metoprolol 25 Milligram By Mouth Every day Unchanged predniSONE (predniSONE 20 mg Tab) 1 Tablets Unchanged tamsulosin (tamsulosin 0.4 mg Cap) 1 Capsules Allergies No Known Allergies Problems Ongoing - [...] you for choosing us for your care. Normal [facility] APTTon 11-01-2024 aPTT Coag (Bld) [Time] 36.[address] [facility] No Panel Informationon 11-01 [facility] SRMCO[facility] PROTHROMBIN TIME INR W/O COUMon 11-01-2024 PT Coag (PPP) [Time] 11.[address] [facility] Healthcare TB INR 1.07 [facility] Comment on above: DESIRED INR: 2.0-3.0 CONDITIONS NOT LISTED BELOW 2.5-3.5 FOR PROSTHETIC HEART VALVE REPLACEMENT 2.5-3.5 RECURRENT THROMBOSIS ALL BASIC METABOLIC PANELon 10-17-2024 Anion gap [Moles/Vol] 10.8 mmol/L [facility] Calcium [Mass/Vol] 8.8 mg/dL 8.5 - 10. 1 mg/dL [facility] Chloride [Moles/Vol] 104 mmol/L 98 - 10 7 mmol/L [facility] CO2 [Moles/Vol] 27.4 mmol/L 21.0 - 32.0 mmol/L [facility] Creatinine [Mass/Vol] 1.27 mg/dL 0.70 - 1.30 mg/dL [facility] GFR/1.73 sq M.predicted CKD-EPI (S/P/Bld) [Vol rate/Area] >60 >=60 mL/min/1.73m 2 [facility] Glucose [Mass/Vol] 112 mg/dL High 74 - 106 mg/dL [facility] Interpretation and review of laboratory results Abnormal [facility] Potassium [Moles/Vol] 4.2 mmol/L 3.5 - 5.1 mmol/L [facility] Sodium [Moles/Vol] 138 mmol/L 136 - 145 mmol/L [facility] TBH EGFR-NON AF CHADIAN 55 Low >=60 mL/min/1.73m 2 [facility] Urea nitrogen [Mass/Vol] 17 mg/dL 7.0 - 18.0 mg/dL [facility] Urea nitrogen/Creatinine [Mass ratio] 13.4 mg/mg [facility]-LEADon 10-17-2024 [place] [address] Electrocardiograph Report Signed Patient: SINGH BOWMAN MR#: [id number] : 1945 Acct:[id number] Age/Sex: 79 / M ADM Date: 10/17/24 Loc: [facility] Attending Dr: Medina Butler M.D. Ordering Physician: Medina Butler M.D. 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 Measurements Intervals [place] Rate: 78 P: MS: QRS: 12 QRSD: 99 T: 62 QT: 390 QTc: 445 Interpretive Statements ATRIAL FIBRILLATION NONSPECIFIC T-WAVE ABNORMALITY ABNORMAL RHYTHM ECG No previous ECG available for comparison Electronically Signed On 10-17-2024 18:41:51 EDT by DWIGHT BARNETT M.D. Dictated By: DWIGHT BARNETT Signed By: 10/17/241840 DD/ 24 TD/TT: Patent Legal Assistant: [facility] Radiology, Radiologist, MD - 10/17/2024 [place] [address] Electrocardiograph Report Signed Patient: SINGH BOWMAN MR#: [id number] : 1945 Acct:[id number] Age/Sex: 79 / M ADM Date: 10/17/24 Loc: [facility] Attending Dr: Medina Butler M.D. Ordering Physician: Medina Butler M.D. 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 Measurements Intervals [place] Rate: 78 P: MS: QRS: 12 QRSD: 99 T: 62 QT: 390 QTc: 445 Interpretive Statements ATRIAL FIBRILLATION NONSPECIFIC T-WAVE ABNORMALITY ABNORMAL RHYTHM ECG No previous ECG available for comparison Electronically Signed On 10-17-2024 18:41:51 EDT by DWIGHT BARNETT M.D. Dictated By: DWIGHT BARNETT Signed By: 10/17/241840 DD/ 24 TD/TT: Patent Legal Assistant: [facility] Radiology Study observation (narrative) [facility] ECG 12-LEADOrdered By: Radio logist Radiology on 10-17-2024 [facility] Work Phone: XR CHEST 2Von 10-17-[address] [address] XRay Report Signed Patient: SINGH BOWMAN MR#: [id number] : 1945 Acct:[id number] Age/Sex: 79 / M ADM Date: 10/17/24 Loc: [facility] Attending Dr: Medina Butler M.D. Ordering Physician: Medina Butler M.D. Date of Service: 10/17/24 Procedure(s): XR chest 2V Accession Number(s): [id number] cc: MARIELA RASHID ; Medina Butler M.D. The [address] [address] Patient Name: SINGH BOWMAN MRN: [facility]:[id number] date: 1945 Sex: M Assigned Patient Location: [facility] Current Patient Location: [facility] Accession/Order Number: [id number] Exam Date: 10/17/2024 17:53 Report Date: 10/17/2024 17:55 At the request of: MEIDNA BUTLER MD Procedure: XR chest 2V Plain [...] Nii Minaya M.D.10/17/2024 5:55 PM Dictation Location: [place] [address] Electronically authenticated by: [id number] Y Date: 10/17/2024 17:55 Dictated By: Nii Minaya D.O. Signed By: 10/17/241757 DD/ 54 TD/TT: Patent Legal Assistant: [facility] Radiology, Radiologist, MD - 10/17/[address] [address] XRay Report Signed Patient: SINGH BOWMAN MR#: [id number] : 1945 Acct:[id number] Age/Sex: 79 / M ADM Date: 10/17/24 Loc: PST Attending Dr: Medina Butler M.D. Ordering Physician: Medina Butler M.D. Date of Service: 10/17/24 Procedure(s): XR chest 2V Accession Number(s): [id number] cc: MARIELA RASHID ; Medina Butler M.D. [address] [address] Patient Name: SINGH BOWMAN MRN: [id number] date: 1945 Sex: M Assigned Patient Location: [facility] Current Patient Location: [facility] Accession/Order Number: [id number] Exam Date: 10/17/2024 17:53 Report Date: 10/17/2024 [...] Nii Minaya M.D.10/17/2024 5:55 PM Dictation Location: [place] [address] Electronically authenticated by: [id number] Y Date: 10/17/2024 17:55 Dictated By: Nii Minaya D.O. Signed By: 10/17/241757 DD/ 54 TD/TT: Patent Legal Assistant: [facility] [employer] Radiology Study observation (narrative) [facility] [employer] XR CHEST 2VOrdered By: Ideal [facility] Rad[facility] on 10-17-2024 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 Your Care Team Attending Physician - Medina BUTLER MD Primary Care Physician - MARIELA RASHDI MD This Is Your Medications List ciprofloxacin [...] AM EDT With: Where: [facility] [address] [place] [address]- Tuesday 10:45 AM EDT With: Medina BUTLER MD Where: [facility] [address] [place] [address]- You Need to Schedule the Following Appointments Follow Up with Medina BUTLER MD, URL When: Where: [facility] [address] [place] [address]- Medications What How Much When Instructions Unchanged [...] these instructions at home: Medicines ??? Take zanx-nvq-lnzgggc and prescription medicines only as told by [...] is s (more content not included)... Normal [facility] Urology Office/Clinic Noteon 09-11-2024 Urology Office/Clinic Note [...] Vazquez, URL [facility] [address], [place] [address]- Additional Instructions: schedule TURP Patient Education Transurethral Resection of the Prostate, Care After Transurethral Resection of the Prostate ISofy, personally scribed for Dr. Butler on 09/11/2024 [...] and Father. (more content not included)... Normal [facility] Comment on above: Result Comment: Elec tronically Signed By: Medina BUTLER MD\.br\Date and Time Signed: 09/11/24 14:13 EST\.br\Electronically Co-Signed By: Sofy Harrison\.br\Date and Time Co-Signed: 09/11/24 14:10 EST Ambulatory Visit Summaryon 0 09-10-2024 Ambulatory Visit Summary Ambulatory Visit Summary SINGH BOWMAN :1945 Visit Date:09/10/2024 Ambulatory Visit Instructions Your Diagnosis BPH with obstruction/lower urinary tract symptoms Your Care Team Attending Physician - Medina BUTLER MD Primary Care Physician - MARIELA RASHID MD This Is Your Medications List [...] Up with Medina BUTLER MD, URL When: Comments: sched cysto Where: [facility] [address] [place] [phone] Medications What How Much When Instructions New ciprofloxacin (Cipro 500 mg Tab) 1 Tablets By Mouth Every day take one tab day before procedure and one tab after procedure Pickup at [facility] Unchanged apixaban (Eliquis 5 mg oral tablet) [...] physician if questions or concerns Pharmacy Information [facility]: [address] [place], [place] [id number] [phone] Allergies No Known Allergies Problems Ongoing - [...] including vitamins, herbs, eye drops, creams, and mbvm-wjd-trckirn medicines. ??? Any problems you or family [...] tells you to take them. ??? Taking tbgb-fsh-dkzuhao medicines, vitamins, herbs, and supplements. Tests You may have an exam or testing, such as: ??? X-rays o (more content not included)... Normal [facility] US THYROIDon 08-24-2024 US THYROID EXAM: Thyroid [...] report is generated using voice recognition reporting (Nimb[employer] Cloud App[employer]). On occasion PowerScribe erroneously drops words from the report or replaces the spoken word with similar sounding words. Please call with any questions/concerns regarding this report.* Dictated and transcribed 08/24/2024/robert This report has been electronically signed and approved by the interpreting radiologist. Normal Not Available POCT EKGon 11-16-2023 [facility] Vital Signs Date Time Vital Sign Value Performing Clinician Hosseini marc 05-02-2025 18:00-0400 Diastolic blood pressure 77 mm[Hg] Emiliano Alaniz MD Work Phone: [facility] 05-02-2025 18:00-0400 Heart rate 66 /min Emiliano Alaniz MD Work Phone: [facility] 05-02-2025 18:00-0400 Respiratory rate 14 /min Emiliano Alaniz MD Work Phone: [facility] 05-02-2025 18:00-0400 SaO2% (BldA) [Mass fraction] 96 % Emiliano Alaniz MD Work Phone: [facility] 05-02-2025 18:00-0400 Systolic blood pressure 136 mm[Hg] Emiliano Alaniz MD Work Phone: [facility] 05-02-2025 15:32-0400 Body temperature 96.8 [degF] Emiliano Alaniz MD Work Phone: [facility] 05-02-2025 12:29-0400 Body height 188 cm Emiliano Alaniz MD Work Phone: [facility] 05-02-2025 12:29-0400 Body mass index (BMI) [Ratio] 25.68 kg/m2 Emiliano Alaniz MD Work Phone: [facility] 05-02-2025 12:29-0400 Body weight 90.72 kg Emiliano Alaniz MD Work Phone: [facility] 04-22-2025 09:25-0400 Body height 186.7 cm Zeb Decker [facility] Work Phone: [facility] 04-22-2025 09:25-0400 Body mass index (BMI) [Ratio] 25.9 kg/m2 Zeb Jeronimo DPM Work Phone: [facility] 04-22-2025 09:25-0400 Body weight 90.27 kg Zeb Jeronimo MAYO Work Phone: [facility] 04-10-2025 10:26-0400 Body height 188 cm Mariela Rashid MD Work Phone: [facility] 04-10-2025 10:26-0400 Body mass index (BMI) [Ratio] 25.5 kg/m2 Mariela Rashid MD Work Phone: [facility] 04-10-2025 10:26-0400 Body weight 90.08 kg Mariela Rashid MD Work Phone: [facility] 04-10-2025 10:26-0400 Diastolic blood pressure 78 mm[Hg] Mariela Rashid MD Work Phone: [facility] 04-10-2025 10:26-0400 Heart rate 78 /min Mariela Rashid MD Work Phone: [facility] 04-10-2025 10:26-0400 Respiratory rate 18 /min Mariela Rashid MD Work Phone: [facility] 04-10-2025 10:26-0400 SaO2% (BldA) [Mass fraction] 98 % Mariela Rashid MD Work Phone: [facility] 04-10-2025 10:26-0400 Systolic blood pressure 124 mm[Hg] Mariela Rashid MD Work Phone: [facility] 03-18-2025 10:15-0400 Body height 185.4 cm Gabrielle Alvarado MD Work Phone: [facility] 03-18-2025 10:15-0400 Body mass index (BMI) [Ratio] 27.31 kg/m2 Gabrielle Alvarado MD Work Phone: [facility] 03-18-2025 10:15-0400 Body weight 93.89 kg Gabrielle Alvarado MD Work Phone: [facility] 03-18-2025 10:15-0400 Diastolic blood pressure 72 mm[Hg] Gabrielle Alvarado MD Work Phone: [facility] 03-18-2025 10:15-0400 Heart rate 75 /min Gabrielle Alvarado MD Work Phone: [facility] 03-18-2025 10:15-0400 SaO2% (BldA) [Mass fraction] 93 % Gabrielle Alvarado MD Work Phone: [facility] 03-18-2025 10:15-0400 Systolic blood pressure 134 mm[Hg] Gabrielle Alvarado MD Work Phone: [facility] 02-13-2025 08:48-0400 Body height 185.4 cm Esther Dechristophe r DRIVER ENGINEER-GLUE JOINTER OPERATOR Work Phone: [facility] 02-13-2025 08:48-0400 Body mass index (BMI) [Ratio] 26.91 kg/m2 Esther Dechristopher DRIVER ENGINEER-GLUE JOINTER OPERATOR Work Phone: [facility] 02-13-2025 08:48-0400 Body weight 92.53 kg Esther Dechristophe r DRIVER ENGINEER-GLUE JOINTER OPERATOR Work Phone: [facility] 02-13-2025 08:48-0400 Diastolic blood pressure 70 mm[Hg] Esther Dechristopher DRIVER ENGINEER-GLUE JOINTER OPERATOR Work Phone: [facility] 02-13-2025 08:48-0400 Heart rate 67 /min Esther Dechristophe r DRIVER ENGINEER-GLUE JOINTER OPERATOR Work Phone: [facility] 02-13-2025 08:48-0400 Systolic blood pressure 124 mm[Hg] Esther Dechristopher DRIVER ENGINEER-GLUE JOINTER OPERATOR Work Phone: [facility] 02-12-2025 09:55-0400 Body height 188 cm Mariela Rashid MD Work Phone: [facility] 02-12-2025 09:55-0400 Body mass index (BMI) [Ratio] 26.06 kg/m2 Mariela Rashid MD Work Phone: [facility] 02-12-2025 09:55-0400 Body temperature 97.11 [degF] Mariela Rashid MD Work Phone: [facility] 02-12-2025 09:55-0400 Body weight 92.08 kg Mariela Rashid MD Work Phone: [facility] 02-12-2025 09:55-0400 Diastolic blood pressure 82 mm[Hg] Mariela Rashid MD Work Phone: [facility] 02-12-2025 09:55-0400 Heart rate 73 /min Mariela Rashid MD Work Phone: [facility] 02-12-2025 09:55-0400 SaO2% (BldA) [Mass fraction] 98 % Mariela Rashid MD Work Phone: [facility] 02-12-2025 09:55-0400 Systolic blood pressure 132 mm[Hg] Mariela Rashid MD Work Phone: [facility] 01-03-2025 12:56-0400 Body mass index (BMI) [Ratio] 25.94 kg/m2 Cristiane Chao HEAVY EQUIPMENT RENTAL ASSOCIATE Work Phone: [facility] 01-03-2025 12:56-0400 Body weight 91.63 kg Cristiane Chao HEAVY EQUIPMENT RENTAL ASSOCIATE Work Phone: [facility] 01-03-2025 12:56-0400 Diastolic blood pressure 68 mm[Hg] Cristiane Chao HEAVY EQUIPMENT RENTAL ASSOCIATE Work Phone: [facility] 01-03-2025 12:56-0400 Heart rate 76 /min Cristiane Chao HEAVY EQUIPMENT RENTAL ASSOCIATE Work Phone: [facility] 01-03-2025 12:56-0400 SaO2% (BldA) [Mass fraction] 97 % Cristiane Chao HEAVY EQUIPMENT RENTAL ASSOCIATE Work Phone: [facility] 01-03-2025 12:56-0400 Systolic blood pressure 122 mm[Hg] Cristiane Chao HEAVY EQUIPMENT RENTAL ASSOCIATE Work Phone: [facility] 12-06-2024 09:55-0400 Body height 185.4 cm Janel Chao DRIVER ENGINEER-GLUE JOINTER OPERATOR Work Phone: [facility] 12-06-2024 09:55-0400 Body mass index (BMI) [Ratio] 26.15 kg/m2 Janel Chao DRIVER ENGINEER-GLUE JOINTER OPERATOR Work Phone: [facility] 12-06-2024 09:55-0400 Body weight 89.9 kg Janel Chao DRIVER ENGINEER-GLUE JOINTER OPERATOR Work Phone: [facility] 12-06-2024 09:55-0400 Diastolic blood pressure 78 mm[Hg] Janel Chao DRIVER ENGINEER-GLUE JOINTER OPERATOR Work Phone: [facility] 12-06-2024 09:55-0400 Heart rate 74 /min Janel Chao DRIVER ENGINEER-GLUE JOINTER OPERATOR Work Phone: [facility] 12-06-2024 09:55-0400 Systolic blood pressure 149 mm[Hg] Janel Chao DRIVER ENGINEER-GLUE JOINTER OPERATOR Work Phone: [facility] 11-30-2024 10:17-0400 Body height 188 cm Mariela Rashid MD Work Phone: [facility] 11-30-2024 10:17-0400 Body mass index (BMI) [Ratio] 23.88 kg/m2 Mariela Rashid MD Work Phone: [facility] 11-30-2024 10:17-0400 Body weight 84.37 kg Mariela Rashid MD Work Phone: [facility] 11-30-2024 10:17-0400 Diastolic blood pressure 62 mm[Hg] Mariela Rashid MD Work Phone: [facility] 11-30-2024 10:17-0400 Heart rate 72 /min Mariela Rashid MD Work Phone: [facility] 11-30-2024 10:17-0400 Respiratory rate 18 /min Mariela Rashid MD Work Phone: [facility] 11-30-2024 10:17-0400 SaO2% (BldA) [Mass fraction] 98 % Mariela Rashid MD Work Phone: [facility] 11-30-2024 10:17-0400 Systolic blood pressure 118 mm[Hg] Mariela Rashid MD Work Phone: [facility] 11-07-2024 09:29-0400 Body height 185.4 cm Emiliano Alaniz MD Work Phone: [facility] 11-07-2024 09:29-0400 Body mass index (BMI) [Ratio] 25.38 kg/m2 Emiliano Alaniz MD Work Phone: [facility] 11-07-2024 09:29-0400 Body weight 87.27 kg Emiliano Alaniz MD Work Phone: [facility] 11-07-2024 09:29-0400 Diastolic blood pressure 64 mm[Hg] Emiliano Alaniz MD Work Phone: [facility] 11-07-2024 09:29-0400 Heart rate 111 /min Emiliano Alaniz MD Work Phone: [facility] 11-07-2024 09:29-0400 SaO2% (BldA) [Mass fraction] 99 % Emiliano Alaniz MD Work Phone: [facility] 11-07-2024 09:29-0400 Systolic blood pressure 90 mm[Hg] Emiliano Alaniz MD Work Phone: [facility] 10-19-2024 09:11-0400 Body height 185.4 cm Odell Benjie DO Work Phone: [facility] 10-19-2024 09:11-0400 Body mass index (BMI) [Ratio] 26.78 kg/m2 Odell Benjie DO Work Phone: [facility] 10-19-2024 09:11-0400 Body weight 92.08 kg Odell Benjie DO Work Phone: [facility] 10-19-2024 09:11-0400 Diastolic blood pressure 74 mm[Hg] Odell Benjie DO Work Phone: [facility] 10-19-2024 09:11-0400 Heart rate 92 /min Odell Benjie DO Work Phone: [facility] 10-19-2024 09:11-0400 Systolic blood pressure 140 mm[Hg] Odell Benjie DO Work Phone: [facility] 10-01-2024 09:10-0500 Body mass index (BMI) [Ratio] 25.99 kg/m2 Christopher Caty DO Work Phone: [facility] 10-01-2024 09:10-0500 Body weight 91.81 kg Christopher Caty DO Work Phone: [facility] 10-01-2024 09:10-0500 Diastolic blood pressure 72 mm[Hg] Christopher Caty DO Work Phone: [facility] 10-01-2024 09:10-0500 Heart rate 67 /min Christopher Caty DO Work Phone: [facility] 10-01-2024 09:10-0500 SaO2% (BldA) [Mass fraction] 96 % Christopher Caty DO Work Phone: [facility] 10-01-2024 09:10-0500 Systolic blood pressure 118 mm[Hg] Christopher Caty DO Work Phone: [facility] 09-18-2024 11:52-0500 Body mass index (BMI) [Ratio] 25.68 kg/m2 Shikha Rowell MD Work Phone: [facility] 09-18-2024 11:52-0500 Body weight 90.72 kg Shikha Rowell MD Work Phone: [facility] 09-18-2024 11:52-0500 Heart rate 62 /min Shikha Rowell MD Work Phone: [facility] 09-18-2024 11:52-0500 Respiratory rate 16 /min Shikha Rowell MD Work Phone: [facility] 09-18-2024 11:52-0500 SaO2% (BldA) [Mass fraction] 96 % Shikha Rowell MD Work Phone: [facility] 09-11-2024 13:33-0500 Blood Pressure Location Medina BUTLER [facility] 09-11-2024 13:33-0500 Diastolic blood pressure 90 mm[Hg] Medina BUTLER [facility] 09-11-2024 13:33-0500 Heart rate 68 /min Medina BUTLER [facility] 09-11-2024 13:33-0500 Respiratory rate 16 /min Medina BUTLER [facility] 09-11-2024 13:33-0500 Systolic blood pressure 150 mm[Hg] Medina BUTLER [facility] 09-10-2024 11:17-0500 Blood Pressure Location Medina BUTLER [facility] 09-10-2024 11:17-0500 Body temperature 98.6 [degF] Medina BUTLER [facility] 09-10-2024 11:17-0500 Diastolic blood pressure 78 mm[Hg] Medina BUTLER [facility] 09-10-2024 11:17-0500 Heart rate 61 /min Medina BUTLER [facility] 09-10-2024 11:17-0500 Respiratory rate 18 /min Medina BUTLER [facility] 09-10-2024 11:17-0500 Systolic blood pressure 139 mm[Hg] Medina BUTLER [facility] 09-06-2024 09:20-0500 Body height 188 cm Shikha Rowell MD Work Phone: [facility] 09-06-2024 09:20-0500 Body mass index (BMI) [Ratio] 25.16 kg/m2 Shikha Rowell MD Work Phone: [facility] 09-06-2024 09:20-0500 Body weight 88.91 kg Shikha Rowell MD Work Phone: [facility] 09-06-2024 09:20-0500 Heart rate 74 /min Shikha Rowell MD Work Phone: [facility] 09-06-2024 09:20-0500 Respiratory rate 16 /min Shikha Rowell MD Work Phone: [facility] 09-06-2024 09:20-0500 SaO2% (BldA) [Mass fraction] 93 % Shikha Rowell MD Work Phone: [facility] 08-17-2024 10:05-0500 Body height 185.4 cm Mariela Rashid MD Work Phone: [facility] 08-17-2024 10:05-0500 Body mass index (BMI) [Ratio] 25.6 kg/m2 Mariela Rashid MD Work Phone: [facility] 08-17-2024 10:05-0500 Body weight 88 kg Mariela Rashid MD Work Phone: [facility] 08-17-2024 10:05-0500 Diastolic blood pressure 76 mm[Hg] Mariela Rashid MD Work Phone: [facility] 08-17-2024 10:05-0500 Heart rate 81 /min Mariela Rashid MD Work Phone: [facility] 08-17-2024 10:05-0500 Respiratory rate 18 /min Mariela Rashid MD Work Phone: [facility] 08-17-2024 10:05-0500 SaO2% (BldA) [Mass fraction] 97 % Mariela Rashid MD Work Phone: [facility] 08-17-2024 10:05-0500 Systolic blood pressure 128 mm[Hg] Mariela Rashid MD Work Phone: [facility] 11-16-2023 08:42-0400 Body height 185.4 cm Emiliano Alaniz MD Work Phone: [facility] 11-16-2023 08:42-0400 Body mass index (BMI) [Ratio] 26.39 kg/m2 Emiliano Alaniz MD Work Phone: [facility] 11-16-2023 08:42-0400 Body weight 90.72 kg Emiliano Alaniz MD Work Phone: [facility] 11-16-2023 08:42-0400 Diastolic blood pressure 80 mm[Hg] Emiliano Alaniz MD Work Phone: [facility] 11-16-2023 08:42-0400 Heart rate 84 /min Emiliano Alaniz MD Work Phone: [facility] 11-16-2023 08:42-0400 SaO2% (BldA) [Mass fraction] 96 % Emiliano Alaniz MD Work Phone: [facility] 11-16-2023 08:42-0400 Systolic blood pressure 126 mm[Hg] Emiliano Alaniz MD Work Phone: [facility] 10-06-2023 10:47-0500 Body height 185.4 cm Pmh 1 [facility] 10-06-2023 10:47-0500 Body mass index (BMI) [Ratio] 25.73 kg/m2 Pmh 1 [facility] 10-06-2023 10:47-0500 Body weight 88.45 kg Pmh 1 [facility] 09-06-2023 09:19-0500 Body mass index (BMI) [Ratio] 26.36 kg/m2 Janel Chao DRIVER ENGINEER-GLUE JOINTER OPERATOR Work Phone: [facility] 09-06-2023 09:19-0500 Body weight 90.63 kg Janel Chao DRIVER ENGINEER-GLUE JOINTER OPERATOR Work Phone: [facility] 09-06-2023 09:19-0500 Diastolic blood pressure 80 mm[Hg] Janel Chao DRIVER ENGINEER-GLUE JOINTER OPERATOR Work Phone: [facility] 09-06-2023 09:19-0500 Systolic blood pressure 130 mm[Hg] Janel Chao DRIVER ENGINEER-GLUE JOINTER OPERATOR Work Phone: [facility] Encounters Encounter Date Encounter Type Care Provider Facility Start: 02-28-2026 ambulatory Medina [facility]ai ty:[facility] Start: 06-14-2025 ambulatory Medina Lunai ty:[facility] Start: 05-21-2025 ambulatory Medina Lunai ty:[id number] Start: 05-10-2025 End: 05-10-2025 Clinical Support Ppc Ep Wound Check [facility] Comment on above: Longstanding persist ent atrial fibrillation ([facility]) (Primary Dx); Rectal bleeding Start: 05-10-2025 End: 05-10-2025 ambulatory [facility] Start: 05-07-2025 End: 05-07-2025 Clinisync Result Encounter Generic External Data Provider [facility] External Department Unsolicited Start: 05-07-2025 End: 05-07-2025 Clinisync Result Encounter Generic External Data Provider [facility] External Department Unsolicited Start: 05-02-2025 End: 05-02-2025 Evaluation and management of inpatient Emiliano Alaniz MD Work Phone: [facility] Comment on above: Paroxysmal atrial fi brillation ([facility]) (Primary Dx); Longstanding persistent atrial fibrillation ([facility]); Rectal bleeding Start: 05-01-2025 End: 05-02-2025 Telephone encounter Felicity Johnson RN [facility] Start: 04-26-2025 End: 04-26-2025 Bamboo flowsheet Clau Lopez MD Work Phone: [facility] Start: 04-26-2025 End: 04-26-2025 Bamboo flowsheet Clau Lopez MD Work Phone: [facility] Start: 04-26-2025 End: 04-26-2025 Postop follow up visit related to original px Clau Lopez MD Work Phone: [facility] Comment on above: Encounter for remova l of sutures Start: 04-26-2025 End: 04-26-2025 ambulatory CLAU LOPEZ Not Available Start: 04-25-2025 End: 04-26-2025 Follow-up encounter Fanny Ambrose RN [facility] Comment on above: Basic Metabolic Pane l, Magnesium, CBC auto differential Start: 04-25-2025 End: 04-25-2025 Telephone encounter Lakeisha Tai RN [facility] Start: 04-25-2025 ambulatory EMILIANO Rockwell EARL [facility] Start: 04-23-2025 End: 04-23-2025 ambulatory MEDINA George BUTLER [facility] Start: 04-22-2025 End: 04-22-2025 Bamboo flowsheet Zeb Decker DPM Work Phone: [facility] Start: 04-22-2025 End: 04-22-2025 Bamboo flowsheet Zeb Decker DPM Work Phone: [facility] Start: 04-22-2025 End: 04-22-2025 Office outpatient new 30 minutes Zeb Decker DPM Work Phone: [facility] Comment on above: Contusion of left gr eat toe with damage to nail, initial encounter (Primary Dx); Onychomycosis; Onychodystrophy; Pain in both feet Start: 04-22-2025 End: 04-22-2025 ambulatory ZEB DECKER Not Available Start: 04-19-2025 End: 04-19-2025 ambulatory Medina BUTLER Facility:[facility] Start: 04-19-2025 End: 04-19-2025 Patient encounter procedure Medina George BUTLER [facility] Start: 04-18-2025 End: 04-18-2025 Patient encounter procedure Clau Lopez MD Work Phone: [facility] Comment on above: Epidermal inclusion cyst (Primary Dx); Actinic keratosis Start: 04-18-2025 End: 04-18-2025 ambulatory CLAU LOPEZ Not Available Start: 04-12-2025 End: 04-12-2025 ambulatory [facility] Start: 04-10-2025 End: 04-10-2025 Bamboo flowsheet Mariela Rashid MD Work Phone: [facility] Start: 04-10-2025 End: 04-10-2025 Bamboo flowsheet Mariela Rashid MD Work Phone: [facility] Start: 04-10-2025 End: 04-10-2025 Office outpatient visit 15 minutes Mariela Rashid MD Work Phone: [facility] Comment on above: Fall, sequela (Prima ry Dx); Chronic kidney disease, stage 3a ([facility]); Contusion of face, sequela; Memory changes; Longstanding persistent atrial fibrillation (HCC) Start: 04-10-2025 End: 04-10-2025 ambulatory MARIELA RASHID Not Available Start: 03-29-2025 End: 03-29-2025 Emergency department patient visit MARIELA RASHID [facility] Start: 03-19-2025 End: 03-19-2025 Telephone encounter Norma Lovell APRN-GLUE JOINTER OPERATOR Work Phone: [facility] Start: 03-18-2025 End: 03-18-2025 Office outpatient visit 25 minutes Gabrielle Alvarado MD Work Phone: [facility] Comment on above: Lower extremity aneu rysm (Primary Dx) Start: 03-18-2025 End: 03-18-2025 ambulatory BALTIMOREJENIFER [facility] Start: 03-12-2025 End: 03-12-2025 Office outpatient new 30 minutes Norma Lovell DRIVER ENGINEER-GLUE JOINTER OPERATOR Work Phone: [facility] Comment on above: Neoplasm of unspecif ied behavior of bone, soft tissue, and skin; Actinic keratosis; Capillary angioma; Lentigines; Melanocytic nevus of trunk; Seborrheic keratosis; EIC (epidermal inclusion cyst) Start: 03-12-2025 End: 03-12-2025 ambulatory NORMA LOVELL Not Available Start: 03-12-2025 End: 03-12-2025 BamWinchannelo Neon Labsheet Norma Olivo Felter DRIVER ENGINEER-GLUE JOINTER OPERATOR Work Phone: [facility] Start: 03-12-2025 End: 03-12-2025 Bamboo flowsheet Norma Olivo Felter DRIVER ENGINEER-GLUE JOINTER OPERATOR Work Phone: [facility] Start: 02-27-2025 End: 02-27-2025 Office outpatient visit 25 minutes Shikha Rowell MD Work Phone: [facility] Comment on above: Hyperthyroidism (Angela mariela Dx); Multinodular goiter ; Chronic atrial fibrillation (HCC) Start: 02-27-2025 End: 02-27-2025 ambulatory SHIKHA ROWELL Not Available Start: 02-25-2025 End: 02-25-2025 ambulatory Medina BUTLER Facility:[facility] Start: 02-25-2025 End: 02-25-2025 Patient encounter procedure Medina BUTLER [facility] Start: 02-19-2025 ambulatory SHIKHA ROWELL [facility] Start: 02-18-2025 End: 02-18-2025 Telephone encounter Nay Sorensno LPN [facility] Comment on above: EP Surgery (PT Educa tion) Start: 02-13-2025 End: 02-13-2025 Telephone encounter Esther Matos APRN-GLUE JOINTER OPERATOR [facility] Start: 02-13-2025 End: 02-13-2025 Office outpatient visit 15 minutes Esther Matos DRIVER ENGINEER-GLUE JOINTER OPERATOR Work Phone: [facility] Comment on above: Longstanding persist ent atrial fibrillation (CMS-HCC) (Primary Dx); Paroxysmal atrial fibrillation ([facility]) Start: 02-13-2025 End: 02-13-2025 [facility] Start: 02-12-2025 End: 02-12-2025 Bamboo flowsheet Mariela Rashid MD Work Phone: [facility] Start: 02-12-2025 End: 02-12-2025 Bamboo flowsheet Mariela Rashid MD Work Phone: [facility] Start: 02-12-2025 End: 02-12-2025 Office outpatient visit 25 minutes Mariela Rashid MD Work Phone: [facility] Comment on above: Hyperthyroidism (Angela mariela Dx); Chronic atrial fibrillation (HCC); Moderate late onset Alzheimer's dementia without behavioral disturbance, psychotic disturbance, mood disturbance, or anxiety (HCC); Hypertension, unspecified type ; Skin lesion of left arm; Skin lesion of face; Snoring; Mixed hyperlipidemia Start: 02-12-2025 End: 02-12-2025 ambulatory MARIELA RASHID Not Available Start: 01-03-2025 End: 01-03-2025 Bamboo flowsheet Cristiane Chao HEAVY EQUIPMENT RENTAL ASSOCIATE Work Phone: [facility] Start: 01-03-2025 End: 01-03-2025 Bamboo flowsheet Cristiane Chao HEAVY EQUIPMENT RENTAL ASSOCIATE Work Phone: [facility] Start: 01-03-2025 End: 01-03-2025 Office outpatient visit 25 minutes Cristiane Chao NP Work Phone: [facility] Comment on above: Mild neurocognitive disorder (Primary Dx); Hyperthyroidism (CMS/HCC) Start: 01-03-2025 End: 01-03-2025 ambulatory CRISTIANE ENMA Not Available Start: 01-01-2025 End: 01-01-2025 Refill Felicity Johnson RN [facility] Comment on above: Med Refill Start: 12-19-2024 End: 12-19-2024 Evaluation and management of inpatient ISHAAN Tena JUNIE [facility] Start: 12-06-2024 End: 12-06-2024 Office outpatient visit 15 minutes Janel Chao DRIVER ENGINEER-GLUE JOINTER OPERATOR Work Phone: [facility] Comment on above: Rectal bleeding (Angela mariela Dx); Encounter for colonoscopy due to history of colonic polyp Start: 12-06-2024 End: 12-06-2024 ambulatory [facility] Geovani CHAO [facility] Start: 12-05-2024 End: 12-05-2024 Patient encounter procedure Cornelio Issa PhD Work Phone: [facility] Comment on above: Mild neurocognitive disorder (Primary Dx); Concentration deficit; Hypersomnia with sleep apnea; Family history of dementia Start: 12-05-2024 End: 12-05-2024 ambulatory SHIKHA ROWELL Not Available Start: 11-30-2024 End: 11-30-2024 Bamboo flowsheet Mariela Rashid MD Work Phone: [facility] Start: 11-30-2024 End: 11-30-2024 Bamboo flowsheet Mariela Rashid MD Work Phone: [facility] Start: 11-30-2024 End: 11-30-2024 Emergency department patient visit MARIELA Andre RASHID [facility] Start: 11-30-2024 End: 11-30-2024 Office outpatient visit 25 minutes Mariela Rashid MD Work Phone: [facility] Comment on above: Hyperthyroidism (CMS /HCC) (Primary Dx); Longstanding persistent atrial fibrillation (CMS/HCC); Mixed hyperlipidemia (CMS/HCC); Moderate late onset Alzheimer's dementia without behavioral disturbance, psychotic disturbance, mood disturbance, or anxiety (CMS/HCC); Paroxysmal atrial fibrillation (CMS/HCC); Hematochezia Start: 11-30-2024 End: 11-30-2024 ambulatory MARIELA RASHID Not Available Start: 11-21-2024 End: 11-21-2024 Bamboo flowsheet Shikha Rowell MD Work Phone: [facility] Start: 11-21-2024 End: 11-21-2024 Bamboo flowsheet Shikha Rowell MD Work Phone: [facility] Start: 11-21-2024 End: 11-27-2024 Telephone [facility] Start: 11-21-2024 End: 11-21-2024 ambulatory SHIKHA ROWELL Not Available Start: 11-21-2024 End: 11-21-2024 Office outpatient visit 25 minutes Shikha Rowell MD Work Phone: [facility] Comment on above: Hyperthyroidism (CMS /HCC) (Primary Dx); Multinodular goiter (CMS/HCC); Chronic atrial fibrillation (HCC) ([facility]/HCC) Start: 11-16-2024 End: 11-16-2024 ambulatory Medina BUTLER Facility:[facility] Start: 11-13-2024 End: 11-13-2024 ambulatory [facility] Andre [facility] Start: 11-07-2024 End: 11-07-2024 Office outpatient visit 25 minutes Emiliano Alaniz MD Work Phone: [facility] Comment on above: Longstanding persist ent atrial fibrillation (CMS-HCC) (Primary Dx) Start: 11-07-2024 End: 11-07-2024 ambulatory EMILIANO ALANIZ [facility] Start: 11-06-2024 End: 11-06-2024 Telephone encounter Bettie Wharton CMA [facility] Start: 11-05-2024 End: 11-05-2024 ambulatory Medina BUTLER Facility:[facility] Start: 11-01-2024 End: 11-01-2024 Clinisync Result Encounter Generic External Data Provider [facility] External Department Unsolicited Start: 11-01-2024 End: 11-01-2024 Clinisync Result Encounter Generic External Data Provider [facility] External Department Unsolicited Start: 11-01-2024 End: 11-01-2024 ambulatory Medina BUTLER Facility:[id number] Start: 10-22-2024 End: 10-22-2024 ambulatory CORNELIO ISSA Not Available Start: 10-19-2024 End: 10-19-2024 Office outpatient new 45 minutes Odell Lenka JenkinsBenjie DO Work Phone: [facility] Comment on above: Longstanding persist ent atrial fibrillation (CMS-HCC) (Primary Dx); Pre-op evaluation Start: 10-19-2024 End: 10-19-2024 Preprocedural examination done Odell [facility] DO Work Phone: [facility] Start: 10-19-2024 Encounter for other preprocedural examination [facility] Start: 10-19-2024 End: 10-19-2024 ambulatory [facility] Start: 10-18-2024 End: 10-18-2024 Telephone encounter Avril Porter MA [facility] Start: 10-17-2024 End: [...] Available Start: 10-01-2024 End: 10-01-2024 Bamboo flowsheet David Byrne DO Work Phone: [facility] Start: 10-01-2024 End: 10-01-2024 Bamboo flowsheet David Byrne DO Work Phone: [facility] Start: 10-01-2024 End: 10-01-2024 Office outpatient new 45 minutes David Byrne DO Work Phone: [facility] Comment on above: Moderate late onset Alzheimer's dementia, unspecified whether behavioral, psychotic, or mood disturbance or anxiety (CMS/HCC) (Primary Dx); Memory changes Start: 10-01-2024 End: 10-01-2024 ambulatory DAVID BYRNE Not Available Start: 09-18-2024 End: 09-18-2024 Bamboo flowsheet Shikha Rowell MD Work Phone: [facility] Start: 09-18-2024 End: 09-18-2024 Bamboo flowsheet Shikha Rowell MD Work Phone: [facility] Start: 09-18-2024 End: 09-18-2024 Office outpatient visit 25 minutes Shikha Rowell MD Work Phone: [facility] Comment on above: Hyperthyroidism (CMS /HCC) (Primary Dx); Multinodular goiter (CMS/HCC); Chronic atrial fibrillation (HCC) (CMS/HCC) Start: 09-18-2024 End: 09-18-2024 ambulatory SHIKHA ROWELL Not Available Start: 09-11-2024 End: 09-11-2024 ambulatory Medina BUTLER Facility:[facility] Start: 09-11-2024 End: 09-11-2024 Patient encounter procedure Medina BUTLER [facility] Start: 09-10-2024 End: 09-10-2024 ambulatory Medina BUTLER Facility:[facility] Start: 09-10-2024 End: 09-10-2024 Patient encounter procedure Medina BUTLER [facility] [place] Start: 09-06-2024 End: 09-06-2024 Bamboo flowsheet Shikha Rowell MD Work Phone: [facility] Start: 09-06-2024 End: 09-06-2024 Bamboo flowsheet Shikha Rowell MD Work Phone: [facility] Start: 09-06-2024 End: 09-06-2024 Office outpatient new 60 minutes Shikha Rowell MD Work Phone: [facility] Comment on above: Multinodular goiter (CMS/HCC) (Primary Dx); Hyperthyroidism (CMS/HCC); Chronic atrial fibrillation (HCC) (CMS/HCC) Start: 09-06-2024 End: 09-06-2024 ambulatory SHIKHA ROWELL Not Available Start: 08-24-2024 End: 08-24-2024 ambulatory MARIELA RASHID Not Available Start: 08-[facility] Start: 08-19-2024 End: 08-19-2024 Orders Only Mariela Rashid MD Work Phone: [facility] Comment on above: Hyperthyroidism (CMS /HCC) (Primary Dx) Start: 08-17-2024 End: 08-17-2024 Bamboo flowsheet Mariela Rashid MD Work Phone: [facility] Start: 08-17-2024 End: 08-17-2024 Bamboo flowsheet Mariela Rashid MD Work Phone: [facility] Start: 08-17-2024 End: 08-17-2024 Patient encounter procedure Mariela Rashid MD Work Phone: [facility] Comment on above: Routine general medi ann examination at a health care facility (Primary Dx); Longstanding persistent atrial fibrillation (CMS/HCC); Mixed hyperlipidemia (CMS/HCC); Meniere's disease of right ear; Benign prostatic hyperplasia, unspecified whether lower urinary tract symptoms present; Enlarged prostate; Adenomatous polyp of transverse colon; Memory changes; Unspecified atrial fibrillation (CMS/HCC) Start: 08-17-2024 End: 08-17-2024 Patient encounter status Mariela Rashid MD Work Phone: [facility] Start: 08-17-2024 End: 08-17-2024 ambulatory MARIELA RASHID Not Available Start: 07-31-2024 End: 07-31-2024 Refill Mariela Rashid MD Work Phone: [facility] Comment on above: Mixed hyperlipidemia (CMS/HCC) Start: 04-12-2024 End: 04-12-2024 Refill Mariela Rashid MD Work Phone: [facility] Comment on above: Enlarged prostate Start: 12-12-2023 End: 12-12-2023 Refill Keli Hines RN [facility] Cardiology Comment on above: Med Refill Start: 11-16-2023 End: 11-16-2023 Office outpatient visit 15 minutes Emiliano Alaniz MD Work Phone: [facility] Comment on above: Paroxysmal atrial fi brillation (CMS-HCC) (Primary Dx) Start: 10-24-2023 Telephone encounter [facility] Start: 10-20-2023 Telephone encounter Keli Hines RN [facility] Comment on above: Holding eliquis Start: 10-06-2023 End: 10-06-2023 ambulatory Pmh Pat Phone Call Provider 1 [facility] Admit Start: 09-22-2023 Refill Esther Matos DRIVER ENGINEER-GLUE JOINTER OPERATOR Work Phone: [facility] Comment on above: Med Refill Start: 09-06-2023 End: 09-06-2023 Office outpatient new 30 minutes Janel Chao DRIVER ENGINEER-GLUE JOINTER OPERATOR [facility] Phone: [facility] Comment on above: History of colon stephan yps (Primary Dx); Family history of malignant neoplasm of colon; Hematochezia Start: 08-18-2023 Telephone encounter Janel Chao DRIVER ENGINEER-GLUE JOINTER OPERATOR Work Phone: [facility] Procedures Date Procedure Procedure Detail Performing Clinician Start: 09-30-2025 ALL BASIC METABOLIC PANEL Generic Airline Pilot al Data Provider Start: 05-02-2025 EP INVASIVE Emiliano Alaniz MD Work Phone: Start: 05-02-2025 WATCHMAN Emiliano Alaniz MD Work Phone: Start: 05-02-2025 End: 05-02-2025 Coagulation time activated Emiliano Alaniz MD Work Phone: Start: 05-02-2025 Ecg routine ecg w/least 12 lds trcg only w/o i&r Emiliano Alaniz MD Work Phone: Start: 04-18-2025 SKIN EXCISION Clau Lopez MD Work Phone: Start: 04-18-2025 SKIN REPAIR Clau Lopez MD Work Phone: Start: 03-12-2025 CRYOTHERAPY SKIN LESION Norma Osheaer DRIVER ENGINEER-GLUE JOINTER OPERATOR Work Phone: Start: 03-12-2025 End: 03-12-2025 SKIN / NAIL BIOPSY Norma Olivo Felter APR N-GLUE JOINTER OPERATOR Work Phone: Start: 02-13-2025 Ecg routine ecg w/least 12 lds w/i&r Esthergriselda Carpioistmelissa DRIVER ENGINEER-GLUE JOINTER OPERATOR Work Phone: Start: 12-19-2024 Colonoscopy flx dx w/collj spec when pfrmd Medina CARRIE Start: 11-07-2024 Ecg routine ecg w/least 12 lds w/i&r Emiliano Alaniz MD Work Phone: Start: 11-07-2024 Follow-up visit Follow-up EMILIANO ALANIZ Start: 11-01-2024 [facility] APTT Generic External Song a Provider Start: 11-01-2024 SRMCOH PROTHROMBIN TIME INR W/O COUM Generic External Data Provider Start: 11-01-2024 Transurethral prostatectomy Medina DENTON RS Start: 11-01-2024 Transurethral prostatectomy Medina DENTON RS Start: 10-17-2024 XR CHEST 2V Generic External Song a Provider Start: 10-17-2024 ALL BASIC METABOLIC PANEL Generic Airline Pilot al Data Provider Start: 10-17-2024 ECG 12-LEAD Generic External Song a Provider Start: 09-11-2024 Cystoscopy Medina BUTLER Start: 11-16-2023 Ecg routine ecg w/least 12 lds w/i&r Emiliano Alaniz MD Work Phone: Start: 10-14-2023 Colonoscopy Keli Hines RN Start: 08-31-2019 Colonoscopy Janel Chao DRIVER ENGINEER -GLUE JOINTER OPERATOR Work Phone: Appendectomy Medina BUTLER Bilateral cataracts (disorder) Medina BUTLER Cholecystectomy Medina BUCKNER Colonoscopy Medina BUTLER Tonsillectomy Medina BUTLER Plan of Treatment Date Care Activity Detail Author Start: 10-13-2026 Screening for malignant neoplasm of colon Colonoscopy [facility] Start: 05-02-2026 Tobacco Screening Tobacco Screening [facility] Start: 03-29-2026 Tobacco Screening Tobacco Screening [facility] Start: 02-13-2026 Tobacco Screening Tobacco Screening [facility] Start: 02-04-2026 Influenza vaccination [facility] Comment on above: Postponed from 04/08/2025 (Patient Refus ed) Start: 12-19-2025 Tobacco Screening Tobacco Screening [facility] Start: 12-06-2025 Tobacco Screening Tobacco Screening [facility] Start: 11-07-2025 Tobacco Screening Tobacco Screening [facility] Start: 09-09-2025 End: 09-09-2025 Patient encounter procedure 09/09/2025 2:05 PM EST Office Visit [facility] [address] [place] [phone] Norma Lovell, DRIVER ENGINEER-GLUE JOINTER OPERATOR [address] [place] [address] [facility] Start: 08-17-2025 Medicare Annual Wellness (AWV) Medicare Annual Wellness (AWV) [facility] Start: 08-15-2025 End: 08-15-2025 Patient encounter procedure [facility] Start: 07-26-2025 End: 07-26-2025 Patient encounter procedure 07/26/2025 4:15 PM EST Office Visit [facility] [address] [place] [phone] Emiliano Alaniz MD [address] [place] [address] [facility] Start: 07-22-2025 End: 07-22-2025 Patient encounter procedure 07/22/2025 8:30 AM EST Procedure Visit [facility] [address] [place] [address] Zeb Decker, DPM [address] [place], [place] [phone] [facility] Start: 06-13-2025 End: 05-02-2026 CTA Heart and Coronary arteries W contrast IV CT cardiac morphology Imaging Routine Paroxysmal atrial fibrillation ([facility]-HCC) Expected: 06/13/2025, Expires: 05/02/2026 [facility] Work Phone: Comment on above: Expected: 06/13/2025, Expires: Start: 06-05-2025 End: 06-05-2025 Telemedicine consultation with patient [facility] Start: 05-24-2025 End: 05-24-2025 Patient encounter procedure 05/24/2025 9:30 AM EDT Office Visit [facility] [address] [place] [phone] Clau Lopez MD [address] [place] [address] [facility] Start: 05-10-2025 End: 05-10-2025 Clinical Support 05/10/2025 10:00 AM EDT Clinical Support [facility] [address] [place] [phone] [facility] Start: 05-02-2025 End: 05-02-2025 Admission to same day surgery center 05/02/2025 1:30 PM EDT - 05/02/2025 3:30 PM EDT Surgery [facility] [address] [place] [address] Emiliano Alaniz MD [address] [place] [address] Watchman Implant with ICE - BSI, ICE [77054 (CPT )] [facility] Comment on above: Watchman Implant with ICE - BSI, ICE [33 340 (CPT )] Start: 05-02-2025 Subsequent hospital visit by physician 05/02/2025 1:30 PM EDT Hospital Encounter [facility] [address] [facility] [place] [phone] Emiliano Alaniz MD [address] [place] [phone] Longstanding persistent atrial fibrillation ([facility]-HCC); Rectal bleeding [facility] Comment on above: Longstanding persistent atrial fibrillat ion ([facility]-HCC); Rectal bleeding Start: 04-26-2025 End: 04-26-2025 Patient encounter procedure [facility] Comment on above: Arrived Start: 04-22-2025 End: 04-22-2025 Patient encounter procedure [facility] Comment on above: Arrived Start: 04-18-2025 End: 04-18-2025 Patient encounter procedure 04/18/2025 11:15 AM EDT Office Visit [facility] [address] [place] [address] Clau Lopez MD [address] [place] [address] [facility] Start: 04-10-2025 End: 04-10-2025 Patient encounter procedure 04/10/2025 10:20 AM EDT Office Visit General acute hospital Family Medicine [address] [place] [address] Mariela Rashid MD [address] [place], [place] [phone] Arrived [facility] Comment on above: Arrived Start: 04-08-2025 COVID-19 Vaccine () COVID-19 Vaccine () [facility] Start: 04-08-2025 Influenza vaccination [facility] Start: 03-12-2025 End: 03-12-2025 Patient encounter procedure [facility] Comment on above: Arrived Start: 02-27-2025 End: 02-27-2026 Hepatic function 2000 panel - Serum or Plasma Hepatic function panel Lab Routine Hyperthyroidism Expected: 02/27/2025 (Approximate), Expires: 02/27/2026 [facility] Comment on above: Expected: 02/27/2025 (Approximate), Expi res: 02/27/2026 Start: 02-27-2025 End: 02-27-2026 Thyrotropin [Units/volume] in Serum or Plasma TSH Lab Routine Hyperthyroidism Expected: 02/27/2025 (Approximate), Expires: 02/27/2026 [facility] Comment on above: Expected: 02/27/2025 (Approximate), Expi res: 02/27/2026 Start: 02-27-2025 End: 02-27-2026 Thyroxine (T4) free [Mass/volume] in Serum or Plasma T4, free Lab Routine Hyperthyroidism Expected: 02/27/2025 (Approximate), Expires: 02/27/2026 [facility] Comment on above: Expected: 02/27/2025 (Approximate), Expi res: 02/27/2026 Start: 02-27-2025 End: 02-27-2026 Triiodothyronine (T3) Free [Mass/volume] in Serum or Plasma T3, free Lab Routine Hyperthyroidism Expected: 02/27/2025 (Approximate), Expires: 02/27/2026 [facility] Work Phone: Comment on above: Expected: 02/27/2025 (Approximate), Expi res: 02/27/2026 Start: 02-27-2025 End: 02-27-2025 Telemedicine consultation with patient 02/27/2025 11:50 AM EDT Telemedicine [facility] [address] [place] [address] Shikha Rowell MD [address] [place] [address] [facility] Start: 02-13-2025 End: 02-13-2025 Patient encounter procedure 02/13/2025 9:00 AM EDT [facility] [address] [place] [phone] Esther Matos, DRIVER ENGINEER-GLUE JOINTER OPERATOR [address] [place] [address] [facility] Start: 02-12-2025 End: 02-12-2025 Patient encounter procedure [facility] Comment on above: Arrived Start: 01-03-2025 End: 01-03-2025 Patient encounter procedure [facility] Comment on above: Arrived Start: 12-20-2024 End: 12-20-2024 Patient encounter procedure 12/20/2024 2:00 PM EDT Appointment [facility] CVU-IVU [address] [place] [phone] Emiliano Alaniz MD [address] [place] [address] [facility] - [facility]IVU Start: 12-19-2024 End: 12-19-2024 Admission to same day surgery center 12/19/2024 8:00 AM EDT - 12/19/2024 8:30 AM EDT Surgery [facility] [address] [place] [phone] Ishaan Zaman MD [address] [place] [address] COLONOSCOPY DIAGNOSTIC / SCREENING [46056 (CPT )] [facility] Comment on above: COLONOSCOPY DIAGNOSTIC / SCREENING [4537 8 (CPT )] Start: 12-19-2024 End: 12-19-2024 Colonoscopy flx dx w/collj spec when pfrmd COLONOSCOPY DIAGNOSTIC / SCREENING rectal bleeding, history of colon polyps 12/19/2024 8:[address] [facility] Start: 12-19-2024 Subsequent hospital visit by physician 12/19/2024 8:00 AM EDT Hospital Encounter [facility] [address] [place] [address] Ishaan Zaman MD [address] [facility] [facility] [place] [phone] [facility] Start: 12-12-2024 End: 12-12-2024 ambulatory 12/12/2024 2:00 PM EDT Support Visit [facility] Pre [facility] [address] [place] [address] [facility] Start: 12-05-2024 End: 12-05-2024 Patient encounter procedure 12/05/2024 9:00 AM EDT Office Visit [facility] [address] [address] [place] [phone] [facility] Start: 11-30-2024 End: 11-30-2024 Patient encounter procedure 11/30/2024 10:20 AM EDT Office Visit [facility] [address] [place] [phone] Mariela Rashid MD [address] [facility] [place] [address] [facility] Comment on above: Arrived Start: 11-26-2024 End: 11-26-2024 Patient encounter procedure 11/26/2024 12:30 PM EDT Office Visit [facility] [address] [address] [place] [address] [facility] Start: 11-21-2024 End: 11-21-2025 Hepatic function 2000 panel - Serum or Plasma Hepatic function panel Lab Routine Hyperthyroidism (CMS/HCC) Expected: 11/21/2024 (Approximate), Expires: 11/21/2025 [facility] Comment on above: Expected: 11/21/2024 (Approximate), Expi res: 11/21/2025 Start: 11-21-2024 End: 11-21-2025 Thyrotropin [Units/volume] in Serum or Plasma TSH Lab Routine Hyperthyroidism (CMS/HCC) Expected: 11/21/2024 (Approximate), Expires: 11/21/2025 [facility] Comment on above: Expected: 11/21/2024 (Approximate), Expi res: 11/21/2025 Start: 11-21-2024 End: 11-21-2025 Thyroxine (T4) free [Mass/volume] in Serum or Plasma T4, free Lab Routine Hyperthyroidism (CMS/HCC) Expected: 11/21/2024 (Approximate), Expires: 11/21/2025 [facility] Comment on above: Expected: 11/21/2024 (Approximate), Expi res: 11/21/2025 Start: 11-21-2024 End: 11-21-2025 Triiodothyronine (T3) Free [Mass/volume] in Serum or Plasma T3, free Lab Routine Hyperthyroidism (CMS/HCC) Expected: 11/21/2024 (Approximate), Expires: 11/21/2025 [facility] Work Phone: Comment on above: Expected: 11/21/2024 (Approximate), Expi res: 11/21/2025 Start: 11-21-2024 End: 11-21-2024 Patient encounter procedure 11/21/2024 11:30 AM EDT Office Visit [facility] [address] [place] [phone] Shikha Rowell MD [address] [place] [id number] [facility] Start: 11-21-2024 End: 11-21-2024 Telemedicine consultation with patient 11/21/2024 11:30 AM EDT Telemedicine [facility] [address] [place] [phone] Shikha Rowell MD [address] [place] [id number] [facility] Start: 11-15-2024 Adult BMI Screening Adult BMI Screening [facility] Start: 11-15-2024 Tobacco Screening Tobacco Screening [facility] Start: 11-07-2024 End: 11-07-2024 Patient encounter procedure 11/07/2024 9:45 AM EDT Office Visit [facility] [address] [facility] [address] [place] [address] Emiliano Alaniz MD [address] [place] [address] [facility] Start: 10-22-2024 End: 10-22-2024 Patient encounter procedure 10/22/2024 2:00 PM EDT Office Visit [facility] [address] [employer] [address] [place] [phone] Cornelio Issa, PhD [address] [place] [address] [facility] Start: 10-19-2024 End: 10-19-2024 Patient encounter procedure 10/19/2024 9:45 AM EDT Office Visit [facility] [address] [place] [address] Odell Rojas, DO [address] [place] [address], [address] [place] [address] [facility] Start: 10-13-2024 Adult BMI Screening Adult BMI Screening [facility] Start: 10-13-2024 Screening for malignant neoplasm of colon Colonoscopy [facility] Start: 10-09-2024 End: 10-09-2024 Patient encounter procedure 10/09/2024 10:00 AM EST Office Visit [facility] [address] [place] [phone] Cornelio Issa, PhD [address] [place], [place] [id number] [facility] Start: 10-05-2024 Adult BMI Screening Adult BMI Screening [facility] Start: 10-05-2024 Tobacco Screening Tobacco Screening [facility] Start: 10-01-2024 End: 10-01-2024 Patient encounter procedure [facility] Comment on above: Memory changes Start: 09-18-2024 End: 09-18-2025 Thyrotropin [Units/volume] in Serum or Plasma TSH Lab Routine Hyperthyroidism (CMS/HCC) Expected: 09/18/2024 (Approximate), Expires: 09/18/2025 [facility] Comment on above: Expected: 09/18/2024 (Approximate), Expi res: 09/18/2025 Start: 09-18-2024 End: 09-18-2025 Thyroxine (T4) free [Mass/volume] in Serum or Plasma T4, free Lab Routine Hyperthyroidism (CMS/HCC) Expected: 09/18/2024 (Approximate), Expires: 09/18/2025 [facility] Comment on above: Expected: 09/18/2024 (Approximate), Expi res: 09/18/2025 Start: 09-18-2024 End: 09-18-2025 Triiodothyronine (T3) Free [Mass/volume] in Serum or Plasma T3, free Lab Routine Hyperthyroidism (CMS/HCC) Expected: 09/18/2024 (Approximate), Expires: 09/18/2025 [facility] Work Phone: Comment on above: Expected: 09/18/2024 (Approximate), Expi res: 09/18/2025 Start: 09-18-2024 End: 09-18-2024 Patient encounter procedure [facility] Comment on above: Arrived Start: 09-06-2024 Adult BMI Screening Adult BMI Screening [facility] Start: 09-06-2024 End: 09-06-2025 Thyroglobulin Antibody Thyroglobulin Antibody Lab Routine Hyperthyroidism (CMS/HCC) Expected: 09/06/2024 (Approximate), Expires: 09/06/2025 [facility] Work Phone: Comment on above: Expected: 09/06/2024 (Approximate), Expi res: 09/06/2025 Start: 09-06-2024 End: 09-06-2025 Thyroid peroxidase antibody Thyroid peroxidase antibody Lab Routine Hyperthyroidism (CMS/HCC) Expected: 09/06/2024 (Approximate), Expires: 09/06/2025 [facility] Comment on above: Expected: 09/06/2024 (Approximate), Expi res: 09/06/2025 Start: 09-06-2024 End: 09-06-2025 Thyrotropin [Units/volume] in Serum or Plasma TSH Lab Routine Hyperthyroidism (CMS/HCC) Expected: 09/06/2024 (Approximate), Expires: 09/06/2025 [facility] Comment on above: Expected: 09/06/2024 (Approximate), Expi res: 09/06/2025 Start: 09-06-2024 End: 09-06-2025 Thyrotropin receptor antibody Thyrotropin receptor antibody Lab Routine Hyperthyroidism (CMS/HCC) Expected: 09/06/2024 (Approximate), Expires: 09/06/2025 [facility] Comment on above: Expected: 09/06/2024 (Approximate), Expi res: 09/06/2025 Start: 09-06-2024 End: 09-06-2025 Thyroxine (T4) free [Mass/volume] in Serum or Plasma T4, free Lab Routine Hyperthyroidism (CMS/HCC) Expected: 09/06/2024 (Approximate), Expires: 09/06/2025 [facility] Comment on above: Expected: 09/06/2024 (Approximate), Expi res: 09/06/2025 Start: 09-06-2024 Tobacco Screening Tobacco Screening [facility] Start: 09-06-2024 End: 09-06-2025 Triiodothyronine (T3) Free [Mass/volume] in Serum or Plasma T3, free Lab Routine Hyperthyroidism (CMS/HCC) Expected: 09/06/2024 (Approximate), Expires: 09/06/2025 [facility] Comment on above: Expected: 09/06/2024 (Approximate), Expi res: 09/06/2025 Start: 09-06-2024 End: 09-06-2024 Patient encounter procedure 09/06/2024 9:20 AM EST Office Visit [facility] [address] [place] [address] Shikha Rowell MD [address] [place] [address] Hyperthyroidism (CMS/HCC) [facility] Comment on above: Hyperthyroidism (CMS/HCC) Start: 08-19-2024 End: 08-19-2025 US Thyroid gland US thyroid Imaging Routine Hyperthyroidism (CMS/HCC) Expected: 08/19/2024, Expires: 08/19/2025 [facility] Work Phone: Comment on above: Expected: 08/19/2024, Expires: Start: 08-17-2024 End: 08-17-2025 CBC W Auto Differential panel - Blood CBC and differential Lab Routine Mixed hyperlipidemia (CMS/HCC) Expected: 08/17/2024 (Approximate), Expires: 08/17/2025 [facility] Comment on above: Expected: 08/17/2024 (Approximate), Expi res: 08/17/2025 Start: 08-17-2024 End: 08-17-2025 Cobalamin (Vitamin B12) [Mass/volume] in Serum or Plasma Vitamin B12 Lab Routine Memory changes Expected: 08/17/2024 (Approximate), Expires: 08/17/2025 [facility] Comment on above: Expected: 08/17/2024 (Approximate), Expi res: 08/17/2025 Start: 08-17-2024 End: 08-17-2025 Comprehensive metabolic 2000 panel - Serum or Plasma Comprehensive metabolic panel Lab Routine Mixed hyperlipidemia (CMS/HCC) Expected: 08/17/2024, Expires: 08/17/2025 [facility] Work Phone: Comment on above: Expected: 08/17/2024, Expires: Start: 08-17-2024 End: 08-17-2025 Lipid 1996 panel - Serum or Plasma Lipid panel Lab Routine Mixed hyperlipidemia (CMS/HCC) Expected: 08/17/2024 (Approximate), Expires: 08/17/2025 [facility] Comment on above: Expected: 08/17/2024 (Approximate), Expi res: 08/17/2025 Start: 08-17-2024 End: 08-17-2025 Prostate specific Ag [Mass/volume] in Serum or Plasma PSA Lab Routine Benign prostatic hyperplasia, unspecified whether lower urinary tract symptoms present Expected: 08/17/2024 (Approximate), Expires: 08/17/2025 [facility] Comment on above: Expected: 08/17/2024 (Approximate), Expi res: 08/17/2025 Start: 08-17-2024 End: 08-17-2025 TSH W/REFLEX TO FT4 TSH W/REFLEX TO FT4 Lab Routine Memory changes Expected: 08/17/2024 (Approximate), Expires: 08/17/2025 [facility] Comment on above: Expected: 08/17/2024 (Approximate), Expi res: 08/17/2025 Start: 08-17-2024 End: 08-17-2024 Patient encounter procedure [facility] Comment on above: Arrived Start: 08-16-2024 Medicare Annual Wellness (AWV) Medicare Annual Wellness (AWV) [facility] Start: 04-08-2024 COVID-19 Vaccine () COVID-19 Vaccine () [facility] Start: 04-08-2024 Influenza vaccination [facility] Start: 11-18-2023 Adult BMI Screening Adult BMI Screening [facility] Start: 11-18-2023 Tobacco Screening Tobacco Screening [facility] Start: 11-16-2023 End: 11-16-2023 Patient encounter procedure 11/16/2023 8:45 AM EDT Office Visit [facility] [address] [phone] Emiliano Alaniz MD [address] [place] [address] [facility] Start: 10-14-2023 End: 10-14-2023 Admission to same day surgery center 10/14/2023 10:00 AM EST - 10/14/2023 10:40 AM EST Surgery [facility] [address] [place] [address] Ishaan Zaman MD [address] [place] [address] COLONOSCOPY DIAGNOSTIC / SCREENING [97242 (CPT )] [facility] Comment on above: COLONOSCOPY DIAGNOSTIC / SCREENING [4537 8 (CPT )] Start: 10-14-2023 End: 10-14-2023 Colonoscopy flx dx w/collj spec when pfrmd COLONOSCOPY DIAGNOSTIC / SCREENING history of colon polyps 10/14/2023 10:00 AM EST [facility] Start: 10-14-2023 Subsequent hospital visit by physician 10/14/2023 10:00 AM EST Hospital Encounter [facility] [address] [place] [phone] Ishaan Zaman MD [address] [place] [address] [facility] Start: 10-06-2023 End: 10-06-2023 ambulatory 10/06/2023 3:30 PM EST Support Visit [facility] [address] [place] [phone] [facility] Start: 09-06-2023 End: 09-06-2023 Patient encounter procedure 09/06/2023 9:30 AM EST Office Visit [facility] General Surgery [address] [place] [phone] Janel Chao, DRIVER ENGINEER-GLUE JOINTER OPERATOR [address] [place] [address] [facility] Surgery Start: 04-08-2023 COVID-19 Vaccine ( season) COVID-19 Vaccine ( season) [facility] Start: 08-31-2022 Screening for malignant neoplasm of colon Colonoscopy [facility] Start: 05-11-2020 DTaP,Tdap and Td Vaccines (4 - Td or Tdap) DTaP,Tdap and Td Vaccines (4 - Td or Tdap) [facility] Start: 2010 Abdominal aortic aneurysm screening Abdominal Aortic Aneurysm (AAA) Screen [facility] Start: 2010 Fall Risk Screening Fall Risk Screening [facility] Start: 1963 Adult BMI Follow Up Plan Adult BMI Follow Up Plan [facility] Start: 1957 Depression Screening Depression Screening [facility] Start: 1945 Medicare Annual Wellness Visit Medicare Annual Wellness Visit [facility] End: 09-05-2024 Colonoscopy Colonoscopy GI Routine History of colon polyps Family history of malignant neoplasm of colon 1 Occurrences starting 09/06/2023 until 09/05/2024 [employer] Work Phone: Comment on above: 1 Occurrences starting 09/06/2023 until 09/05/2024 End: 12-06-2025 Colonoscopy Colonoscopy GI Routine Rectal bleeding Encounter for colonoscopy due to history of colonic polyp 1 Occurrences starting 12/06/2024 until 12/06/2025 [employer] Work Phone: Comment on above: 1 Occurrences starting 12/06/2024 until 12/06/2025 Dermatopathology exam Dermatopat hology exam Pathology and Cytology Timed Neoplasm of unspecified behavior of bone, soft tissue, and skin Release Upon Ordering for 1 Occurrences starting 03/12/2025 [employer] Work Phone: Comment on above: Release Upon Ordering for 1 Occurrences starting 03/12/2025 Dermatopathology exam Dermatopat hology exam Pathology and Cytology Timed Epidermal inclusion cyst Release Upon Ordering for 1 Occurrences starting 04/18/2025 [employer] Work Phone: Comment on above: Release Upon Ordering for 1 Occurrences starting 04/18/2025 Oxygen Therapy - Maintain SpO2: 90% or greater; *MONUMENT CARVER Guidelines for O2: Yes; Document: [email or web address] c\EPIC_Reference\Orders\ Respiratory Care Guidelines\CPG Oxygen 2022.pdf Oxygen Therapy - Maintain SpO2: 90% or greater; *MONUMENT CARVER Guidelines for O2: Yes; Document: [email or web address] c\EPIC_Reference\Orders\ Respiratory Care Guidelines\CPG Oxygen 2022.pdf Respiratory Care Routine Every 12 hour check until discontinued starting 05/02/2025 [employer] Work Phone: Comment on above: Every 12 hour check until discontinued s tarting 05/02/2025 POCT EKG POCT EKG ECG Blossom ivey Longstanding persistent atrial fibrillation ([facility]) Ordered: 11/27/2024 [facility] Work Phone: Comment on above: Ordered: 11/27/2024 Immunizations Immunization Date Immunization Notes Care Provider Micah laureano 06-15-2024 influenza virus vacc ine, unspecified formulation Medina CARRIE [facility] 06-15-2024 influenza, high dose seasonal, preservative-free Mariela Rashid MD Work Phone: [facility] 05-05-2023 Influenza, High-dose Seasonal, Quadrivalent, Preservative Free Mariela Rashid MD Work Phone: [facility] 05-05-2023 influenza virus vacc ine, unspecified formulation Emiliano Alaniz MD Work Phone: [facility] 04-04-2023 zoster vaccine recombinant Mariela Rashid MD Work Phone: [facility] 02-01-2023 zoster vaccine recombinant Mariela Rashid MD Work Phone: [facility] Work Phone: 05-17-2022 influenza virus vacc ine, unspecified formulation Medina BUTLER [facility] 05-17-2022 Influenza, High-dose Seasonal, Quadrivalent, Preservative Free Mariela Rashid MD Work Phone: [facility] 08-12-2021 SARS-CoV-2 (COVID-19 ) [id number] vaccine Medina BUTLER [facility] 06-23-2021 influenza virus vacc ine, unspecified formulation Medina BUTLER [facility] 06-23-2021 Influenza, High-dose Seasonal, Quadrivalent, Preservative Free Mariela Rashid MD Work Phone: [facility] 10-09-2020 COVID-19, mRNA, LNP- S, PF, 100mcg/0.5mL Dose Janel Chao DRIVER ENGINEER-GLUE JOINTER OPERATOR Work Phone: [facility] Comment on above: Result Comment: 2024: [id number] 09-11-2020 COVID-19, mRNA, LNP- S, PF, 100mcg/0.5mL Dose Janel Chao DRIVER ENGINEER-GLUE JOINTER OPERATOR Work Phone: [facility] Comment on above: Result Comment: 2024: [id number] 06-17-2020 influenza virus vacc ine, unspecified formulation Medina BUTLER [facility] 06-17-2020 influenza, high dose seasonal, preservative-free Mariela Rashid MD Work Phone: [facility] 06-17-2020 Influenza, High-dose Seasonal, Quadrivalent, Preservative Free Mariela Rashid MD Work Phone: [facility] 06-14-2019 influenza virus vacc ine, unspecified formulation Medina BUTLER [facility] 06-14-2019 influenza, high dose seasonal, preservative-free Mariela Rashid MD Work Phone: [facility] 06-14-2019 Influenza, High-dose Seasonal, Quadrivalent, Preservative Free Mariela Rashid MD Work Phone: [facility] 05-15-2018 influenza virus vacc ine, unspecified formulation Medina BUTLER [facility] 05-15-2018 influenza, high dose seasonal, preservative-free Mariela Rashid MD Work Phone: [facility] 05-15-2018 influenza, injectabl e, quadrivalent, preservative free Mariela Rashid MD Work Phone: [facility] 04-27-2017 influenza virus vacc ine, unspecified formulation Medina BUTLER [facility] 04-27-2017 influenza, high dose seasonal, preservative-free Mariela Rashid MD Work Phone: [facility] 04-27-2017 Influenza, High-dose Seasonal, Quadrivalent, Preservative Free Mariela Rashid MD Work Phone: [facility] 04-22-2016 influenza virus vacc ine, unspecified formulation Mdeina BUTLER [facility] 04-22-2016 influenza, high dose seasonal, preservative-free Mariela Rashid MD Work Phone: [facility] 04-21-2015 influenza virus vacc ine, unspecified formulation Medina BUTLER [facility] 04-21-2015 influenza, high dose seasonal, preservative-free Mariela Rashid MD Work Phone: [facility] 04-21-2015 influenza, seasonal, injectable, preservative free Mariela Rashid MD Work Phone: [facility] 04-21-2015 pneumococcal conjuga te vaccine, 13 valent Mariela Rashid MD Work Phone: [facility] 05-03-2014 influenza, high dose seasonal, preservative-free Mariela Rashid MD Work Phone: [facility] 03-04-2014 pneumococcal polysaccharide vaccine, 23 valent Mariela Rashid MD Work Phone: [facility] 04-30-2013 influenza virus vacc ine, unspecified formulation Medina BUTLER [facility] 04-30-2013 influenza, high dose seasonal, preservative-free Mariela Rashid MD Work Phone: [facility] 11-25-2012 varicella virus vaccine aMriela Rashid MD Work Phone: [facility] 09-08-2012 zoster vaccine, live Mariela oswald MD Work Phone: [facility] 05-03-2012 influenza virus vacc ine, unspecified formulation Medina BUTLER [facility] 05-03-2012 influenza, seasonal, injectable, preservative free Mariela Rashid MD Work Phone: [facility] 05-03-2012 seasonal influenza, intradermal, preservative free Mariela Rashid MD Work Phone: [facility] 05-27-2011 influenza virus vacc ine, unspecified formulation Medina BUTLER [facility] 05-27-2011 influenza, seasonal, injectable, preservative free Mariela Rashid MD Work Phone: [facility] 05-11-2010 diphtheria, tetanus toxoids and pertussis vaccine Mariela Rashid MD Work Phone: [facility] 05-11-2010 pneumococcal vaccine , unspecified formulation Mariela Rashid MD Work Phone: [facility] 05-11-2010 tetanus and diphther ia toxoids, adsorbed, preservative free, for adult use (5 Lf of tetanus toxoid and 2 Lf of diphtheria toxoid) Mariela Rashid MD Work Phone: [facility] 05-11-2010 tetanus toxoid, redu brisa diphtheria toxoid, and acellular pertussis vaccine, adsorbed Mariela Rashid MD Work Phone: [facility] 05-04-2010 influenza virus vacc ine, whole virus Mariela Rashid MD Work Phone: [facility] 05-04-2010 influenza, whole Medina PAVITHRA ERS [facility] Payers Date Payer Category Payer Private Health Insurance [id number] 2016 [facility] BCBS Memb er Subscriber Plan / Payer (Effective 2016-Present) Name: Singh Bowman Relation to Subscriber: Self Name: Singh Bowman Payer ID: Not on file Group ID: [id number] Type: Not on file Address: [place] [id number] [place] [id number] 2016 [facility] [id number]. [id number] 2016 Unknown [id number]. 1.13.693. 2.7.3.733944.315 2016 Unknown [id number] 2010 Medicare [id number]. 1.13.693. [id number] 2010 Medicare [id number] 1945 Unknown [id number] 2.16.840.1.752507.3.579. 2.1285 1945 Unknown [id number] 2.16.840.1.654655.3.579. 2.1285 1945 Unknown [id number] 2.16.840.1.213029.3.579. 2.1285 1945 Unknown [id number] 2.16.840.1.557322.3.579. 2.128 1945 Unknown [id number] 2.16.840.1.503696.3.579. 2.1285 1945 Unknown [id number] 2.16.840.1.811795.3.579. 2.1285 1945 Unknown [id number] 2.16.840.1.348235.3.579. 2.1285 1945 Unknown [id number] 2.16.840.1.125394.3.579. 2.128 1945 Unknown [id number] 2.16.840.1.483484.3.579. 2.1285 1945 Unknown [id number] 2.16.840.1.943552.3.579. 2.128 1945 Unknown [id number] 2.16.840.1.484381.3.579. 2.1285 1945 Unknown [id number] 2.16.840.1.241140.3.579. 2.1286 1945 Unknown [id number] 2.16.840.1.669905.3.579. 2.1286 1945 Unknown [id number] 2.16.840.1.141759.3.579. 2.1259 1945 Unknown [id number] 2.16.840.1.401655.3.579. 2.125 1945 Unknown [id number] 2.16.840.1.308596.3.579. 2.125 1945 Unknown [id number] 2.16.840.1.487726.3.579. 2.1258 1945 Unknown [id number] 2.16.840.1.476424.3.579. 2.1258 1945 Unknown [id number] 2..840.1.407394.3.579. 2.125 1945 Unknown [id number] 2..840.1.403625.3.579. 2.1258 1945 Unknown [id number] 2.16.840.1.594518.3.579. 2.125 1945 Unknown [id number] 2..840.1.630064.3.579. 2.125 1945 Unknown [id number] 2.16.840.1.428025.3.579. 2.125 1945 Unknown [id number] 2.16.840.1.168633.3.579. 2.125 1945 Unknown [id number] 2.16.840.1.711631.3.579. 2.125 1945 Unknown [id number] 2.16.840.1.367283.3.579. 2.125 1945 Unknown [id number] 2.16.840.1.647387.3.579. 2.1259 1945 Unknown [id number] 2.16.840.1.217594.3.579. 2.1259 1945 Unknown [id number] 2.16.840.1.801883.3.579. 2.1259 1945 Unknown [id number] 2.16.840.1.743132.3.579. 2.125 1945 Unknown [id number] 2.16.840.1.978276.3.579. 2.125 1945 Unknown [id number] 2.840.1.750188.3.579. 2.72 1945 Unknown [id number] 2.840.1.383816.3.579. 2.72 1945 Unknown [id number] 2.840.1.575526.3.579. 2.72 1945 Unknown [id number] 2.840.1.546058.3.579. 2.72 1945 Unknown [id number] 2.840.1.996276.3.579. 2. 1945 Unknown [id number] 2.840.1.130248.3.579. 2.72 1945 Unknown [id number] 2.840.1.300075.3.579. 2.72 1945 Unknown [id number] 2.840.1.674927.3.579. 2.72 1945 Unknown [id number] 2.840.1.627507.3.579. 2.72 1945 Unknown [id number] 2.840.1.845256.3.579. 2.72 1945 Unknown [id number] 2.16840.1.301966.3.579. 2.1286 1945 Unknown [id number] 2.16.840.1.654930.3.579. 2.1286 Social History Date Type Detail Facility Start: 01-25-2023 End: 12-06-2024 Tobacco smoking status NHIS Ex-smoker [facility] Start: 08-08-1964 End: 08-08-1998 History of tobacco use Current smoker [facility] Start: 08-08-1964 End: 08-08-1998 History of tobacco use Cigarette Smoker [facility] Start: 01-25-2023 End: 12-06-2024 Tobacco use and exposure Smokeless tobacco non-user [facility] Start: 08-16-2023 End: 04-26-2025 Alcoholic beverage intake Ex-drinker (finding) [facility] Start: 09-04-2020 End: 01-25-2023 History of Social function [facility] Start: 09-04-2020 End: 01-25-2023 Humiliation, Afraid, [...] Healthcare Start: 1945 Sex assigned at Male [facility] Start: 07-07-2021 Gender identity Identifies as male gender (finding) [facility] Start: 07-07-2021 Sexual orientation Heterosexual (finding) [facility] Start: 09-10-2024 End: 09-11-2024 Tobacco smoking status Heavy tobacco smoker (finding) [facility] Start: 11-16-2023 End: 05-03-2025 Alcoholic beverage intake Current drinker of alcohol (finding) [facility] Start: 04-25-2018 Alcohol Comment not very often [facility] Start: 03-13-2015 Sex Male (finding) [facility] How often do you nee d to have someone help you when you read instructions, pamphlets, or other written material from your doctor or pharmacy [SILS] Sometimes [facility] Do you belong to any clubs or organizations such as jewish groups, unions, fraternal or athletic groups, or school groups? Yes [facility] Do you feel stress - tense, restless, nervous, or anxious, or unable to sleep at night because your mind is troubled all the time - these days [OSQ] Only a little [facility] Sexual Orientation [facility] Start: 05-02-2025 Alcohol Comment not very often - rare [facility] Medical Equipment Procedure Code Equipment Code Equipment Origin al Text Equipment Identifier Dates Lens Iol Ultrase rt 18.5d - [id number] - [id number] Start: 04-25-2018 Lens Iol Ultrase rt 19.0d - [id number] - [id number] Start: 05-09-2018 Watchman Flx Pro Aby Clsr 27mm - [id number] FDA Start: 05-02-2025 Watchman Flx Pro Prd Device - [id number] Start: 05-02-2025 Goals Date Patient Goal Desired Activity /State Personal health goal Functional Status Date Assessment Result Facility 09-11-2024 Functional Status N/A [facility] 09-10-2024 Functional Status N/A [facility] Clinical Notes 08-18-2023 to 05-10-2025 Nay Sorenson LPN - 05/10/2025 10:00 AM EDTPerioperative Nursing Note - Tawnya Burnett RN - 05/02/2025 6:45 PM EDTDischarge Sayra Alaniz MD - 05/02/2025 3:24 PM EDT Note Date & Type Note Facility 05-10-2025 History of Present illness Narrative Groin check s/p watchman with JZL on 05/02 Pt reports compliance with medications and all medications reviewed Groin site exam Puncture(s) site: right Bruising: mild Swelling: none Palpation of site(s): yes Tenderness: none Drainage: none Closure device appreciated: no Activity/restrictions: pt cleared to resume normal activity All questions and concerns addressed with pt - advised to notify office of return of symptoms/signs of arrhythmia F/u appt: pt to call and schedule CT Cardiac morph after 06/16. documented in this encounter [facility] 05-02-2025 Miscellaneous Notes Patient ambulated in hallway without issue. Denies chest pain or shortness of breath. Upon return to room, right femoral site checked. Dressing clean, dry, and intact. Discharge instructions reviewed including medications, activity restrictions, and follow ups. Patient stated understanding with no further questions. documented in this encounter [facility] 05-02-2025 Nurse Note Patient ambulated in hallway without issue. Denies chest pain or shortness of breath. Upon return to room, right femoral site checked. Dressing clean, dry, and intact. Discharge instructions reviewed including medications, activity restrictions, and follow ups. Patient stated understanding with no further questions. [facility] 05-02-2025 Hospital Discharge instructions Tawnya Burnett RN - 05/02/2025 6:08 PM EDT Post WATCHMAN Discharge Instructions 1 week from day of discharge, you will need a follow up visit with the Nurse Practitioner. The director of casework services can facilitate arranging these appointments. After a minimum of 45 days from date of procedure you will need to return to hospital to have an outpatient PARTH performed to determine if the implant has closed the opening of the appendage. If the PARTH reveals the appendage is not fully closed - you will require another PARTH at a later date to reassess. Once the results from PARTH have been reviewed the physicians will determine what medication changes need to be made. The director of casework services will facilitate arranging these appointments. 6 months post implant you will need to see the implanting physician for a routine follow up and potentially EKG, and lab work. Our hand tennis ball coverer will facilitate with setting up these appointments. Prior to any dental work or surgery notify your dentist or surgeon about your Watchman implant and the medications you are on. Maintain regular follow up visits with your supervisor mill Keep all bloodwork appointments. FEMORAL ACCESS: RIGHT GROIN Call your VP PLATFORMS if you have any of the following symptoms or health problems after you leave the hospital: Sudden pain, swelling, and/or bright red bleeding at puncture site(s). If swelling and/or bright read bleeding occurs: STOP what you are doing, lie down and elevate your LEG. Apply firm pressure with 1-2 fingers above the puncture site for approximately 10 minutes. Once the bleeding has stopped, gently clean the area and cover with a Band-Aid (remove after 24 hours) and call cardiology to inform them of bleeding. IF YOU ARE UNABLE TO STOP THE BLEEDING OR APPLY ADEQUATE PRESSURE, CALL 9-1-1 IMMEDIATELY. Persistent tenderness/pain or swelling, discoloration; numbness/tingling, coolness or pain in the extremity when walking. MILD bruising/discoloration and/or tenderness is common during the healing process. Signs of infection: swelling, warmth around the wound, rash/redness, drainage, or fever greater than or equal to 100.4 F and/or chills Call 9-1-1 if you have signs or symptoms of a stroke, chest pain/angina, difficulty breathing, you become very pale, louis/blue or if you become confused and cannot be easily awakened Activity: Follow your doctor's recommendations Return to normal activities gradually, pacing yourself as you feel better, resting when tired. A week after your procedure you may walk up and down stairs A week after your procedure walk as much as you can Do NOT lift more than five to ten pounds for the first week. If swelling or bright red bleeding occurs from the femoral puncture site, STOP what you are doing, lie down and elevate your leg. Apply firm pressure with 1-2 fingers above the puncture site. Hold for approximately 10 minutes. If you are unable to stop the bleeding or minimize the swelling, call 9-1-1 immediately. Incision / Wound Care: Remove dressing after 24 hours and leave open to air, at which time you may shower. NO tub baths or hot tubs until approved by your doctor. Cleanse wounds with mild soap and water. Keep wound dry. A small amount of bloody or clear drainage is normal. Watch for redness, swelling, incision site hot to touch, foul or colored drainage from the incision site, these are all signs of infection and should be reported immediately to the physicians. If there is site concern please notify your implanting physician. Medications: DO NOT STOP TAKING YOUR BLOOD THINNER OR ASPIRIN (and/or PLAVIX) WITHOUT SPEAKING WITH YOUR VP PLATFORMS FIRST! Take your medications as ordered at the time of discharge. Do NOT stop taking any medications without first discussing it with your doctor. Do NOT take over the counter medications, herbal or natural supplements without discussing with your doctor first. Notify all your doctors of current medication lists. Follow instructions on medication administration especially if blood thinning medications are prescribed. Your doctor will monitor your medications and advise you when or if you can stop taking them. Notify your doctor immediately if any of the following: Sudden weight gain Increasing shortness of breath Pain, change in color, temperature or swelling in lower legs or feet. Fevers greater than 101 degrees, redness, swelling, incision site hot to touch, foul or colored drainage from the incision site, these are all signs of infection and should be reported immediately to the physicians. If you have any questions, please contact our office at [phone]. Sedation Instructions: You were given medicine today to decrease anxiety, pain, or to make you drowsy during a medical procedure or test. Although you are now alert and ready to go home, some of the effects of the medicine may last for several hours. You must have someone with you to drive home. You are advised to go directly home from the hospital. You may be groggy, dizzy, or less alert for the rest of the day. Common side effects include: drowsiness, dizziness, nausea, unsteady gait, and/or blurry vision. Because of these side effects, you should not work, drive, operate machines, or make important decisions for the next 24 hours. Also, do not drink alcohol, take tranquilizers, sleeping medication, or any non-prescription drugs for 24 hours; unless ordered by your physician. You are at a higher risk of falling for at least 24 hours after receiving sedation medications. For that reason: Take extra care when you get up Do not change positions quickly Do not gonzalez when you need to go to the bathroom or to answer the phone Ask for help if you feel unsteady when you try to walk Wear shoes with non-slip soles and low heels Diet: You may feel sick to your stomach and/or vomit after receiving sedation medications. Start with a light diet and/or clear liquid diet, which include things that are easy to swallow. If you are not able to keep anything down for 24 hours or more, please give your physician's office a call or go to the nearest emergency center. Medications: A detailed medication list is included with your discharge instructions. Please refer to that in regards to medications that were held, continued and/or discontinued. CALL YOUR DOCTOR, 911, OR GO TO THE NEAREST HOSPITAL EMERGENCY ROOM RIGHT AWAY: If you have difficulty breathing If your skin color is very pale or scott/blue If you become confused or cannot be easily awakened Feeling faint or have a very bad headache Additional Instructions: If you smoke or have quit in the last 12 months: Tobacco is not good for your heart or lungs. Smoking increases your chances of getting a lung infection and makes shortness of breath worse. Tobacco causes your blood vessels to become smaller so your heart has to work harder to pump blood. For further assistance with quitting, you can contact [facility] at [phone] ( ), or consult your physician. *Discharge instructions were reviewed with patient and/or family and they verbalize understanding, including: follow-ups, medications, activity restrictions, and what to do for emergency. Opportunity has been given for patient and/or family to voice any questions or concerns. documented in this encounter [facility] 05-02-2025 Hospital course Narrative Images from the original note were not included. [facility] [address] [place] [address] DISCHARGE SUMMARY Singh Bowman Primary Transporter Radiology: Dr. Emiliano Alaniz PCP: Mariela Rashid MD Admission Date: 05/02/2025 Discharge Date: Reason for Admission: Principal Problem: Longstanding persistent atrial fibrillation ([facility]) Active Problems: Rectal bleeding HOSPITAL SUMMARY Briefly, Singh Bowman is a 80 y.o. year old male with PMH dementia, hyperthyroidism, Meniere s disease, HTN, long-standing persistent AF w/ [id number] 3 on apixaban 5 mg BID, s/p cryoballoon PVI and RF ablation of the RSPV with md 08/11/22 who presents for Watchman implantation. He is currently on diltiazem 180 mg qday for rate control, prior prolonged episode of AF 11/2024 in setting of hyperthyroidism. He has a history of GIB 2/[address] cardiac morphology 05/24/22 shows a broccoli shaped appendage measuring 18x26 mm. Patient underwent successful implantation of a Watchman FLX Pro 27mm to the left atrial appendage. There was no evidence of pericardial effusion. Patient will be discharged home w/ continued apixaban until CT cardiac morphology to be scheduled in 6 weeks. He has follow-up visit for groin check and return visit with me already scheduled. PHYSICAL EXAM BP 122/66 Pulse 71 Temp 36.7 C (98 F) (Oral) Resp 16 Ht 188 cm (6' 2 ) Wt 90.7 kg (200 lb) BMI 25.68 kg/m Admit Weight Weight: 90.7 kg (200 lb) Last 3 Weight Readings 05/02/25 1229 Weight: 90.7 kg (200 lb) General appearance: Awake, alert, cooperative Neck: no adenopathy, no carotid bruit, no JVD, supple, symmetrical, trachea midline, and thyroid: not enlarged, symmetric, no tenderness/mass/nodules Lungs: clear to auscultation bilaterally Heart:: regular rate and rhythm, S1, S2 normal, no murmur, click, rub or gallop Abdomen: Soft, non-tender, bowel sounds normal, no masses, no organomegaly Extremities: extremities normal, atraumatic, no cyanosis or edema PROCEDURES [facility] Course: ECHO: No results found. STRESS: No results found. HOLTER: No results found. CARDIAC CATH: Left atrial appendage closure Result Date: 05/02/2025 Successful implantation of a 27 mm Watchman FLX Pro device for left atrial appendage closure. CAROTID: Vas carotid duplex bilateral Result Date: 08/23/2023 EXAM: [facility] US CAROTID ARTERY DUPLEX BILATERAL DATE:08/23/2023 2:28 PM CLINICAL HISTORY: Facial numbness. COMPARISON: 05/19/2022. TECHNIQUE: Grayscale, color and waveform Doppler analysis of the cervical carotid and vertebral arteries was performed. Optimization of duplex velocity criteria for diagnosis of internal carotid artery (ICA) stenosis: A report of the [employer]ters[employer]reditation Commission (IAC) Vascular Testing Division Carotid Diagnostic Criteria Committee. Vascular Medicine 2020; https://journals.sagepub.com/doi/ full/10.1177/9881743C701596941 FINDINGS: No significant plaques are identified at the carotid bifurcation. There is antegrade blood flow in the right and left vertebral arteries in the neck. On Doppler images, the peak systolic and end diastolic velocity measurements in centimeters per second are as follows: Right proximal common carotid artery is 70/15, right distal common carotid artery is 78/18, right proximal internal carotid artery is 77/23, right mid internal carotid artery is 62/22, right distal internal carotid artery is 41 / 16, right external carotid artery maximum systolic velocity is 99, The peak systolic internal carotid to common carotid artery ratio on the right is 1.0 left proximal common carotid artery is 78/21, left distal common carotid artery is 45/13, left proximal internal carotid artery is 62/19, left mid internal carotid artery is 62/23, left distal internal carotid artery is 75/30, left external carotid artery maximum systolic velocity is 68. The peak systolic internal carotid to common carotid artery ratio on the left is 1.0 NO EVIDENCE OF FLOW-LIMITING STENOSIS. Stenosis PSV EDV ICA/CCA Ratio <50% <180 cm/s <40 <2 50-69% 180-230 cm/s 40-100 2-4 > 70%, but less than near occlusion >230 cm/s >100 >4 ELECTRONICALLY SIGNED BY: Herbert Celaya MD CXR: @CXR24@ LABORATORY CBC: BMP: PT/INR: APTT: MAG: D Dimer: Troponin I ProBNP Lipid Panel: Lab Results Component Value Date CHOL 137 (L) 09/23/2023 TRIG 153 (H) 09/23/2023 HDL 44 09/23/2023 Liver Panel: No results found for: TBIL , ALB HgA1C: No results found for: HGBA1C DISCHARGE INSTRUCTIONS Discharge to: Home Activity: No heavy lifting >30 pounds for 1 week. Diet: general Medications: Medication List CONTINUE taking these medications Instructions Last Dose Given Next Dose Due apixaban 5 mg tablet Commonly known as: ELIQUIS Take 1 tablet (5 mg total) by mouth in the morning and 1 tablet (5 mg total) before bedtime. TAKE 1 TABLET BY MOUTH TWICE A DAY. dilTIAZem XR 180 MG 24 hr capsule Commonly known as: DILACOR XR Take 1 capsule (180 mg total) by mouth in the morning. finasteride 5 mg tablet Commonly known as: PROSCAR Take 1 tablet (5 mg total) by mouth in the morning. furosemide 20 mg tablet Commonly known as: LASIX Take 1 tablet (20 mg total) by mouth as needed (LOWER EXTREMITY SWELLING). methIMAzole 5 mg tablet Commonly known as: TAPAZOLE Take 1 tablet (5 mg total) by mouth in the morning and 1 tablet (5 mg total) before bedtime. ondansetron ODT 4 mg disintegrating tablet Commonly known as: ZOFRAN ODT Dissolve 1 tablet (4 mg total) on tongue every 8 (eight) hours as needed for nausea for up to 10 doses. tamsulosin 0.4 mg capsule Commonly known as: FLOMAX Take 1 capsule (0.4 mg total) by mouth nightly. Follow-up - He has groin check scheduled 05/10/25, and return visit with me 07/26/25 at [place] - He will be scheduled for CT cardiac morphology in 6 weeks PHYSICIANS Consulting Providers: Consulting Providers Not on file This note was completed using a voice malt house loader system. Every effort was made to ensure accuracy. However, inadvertent computerized malt house loader errors may be present. documented in this encounter [facility] 05-02-2025 Procedure note Images from the original note were not included. IMPLANTATION OF A WATCHMAN FLX PRO FOR LEFT ATRIAL APPENDAGE CLOSURE PROCEDURES PERFORMED: Transseptal puncture Intracardiac echocardiography Left atrial appendage closure with 27 mm Watchman FLX Pro Ultrasound guided access GENERAL ANESTHESIA FOR PROCEDURE Please see anesthesia notes for details. INDICATION FOR PROCEDURE: Briefly, Singh Bowman is a 80 y.o. year old male with PMH dementia, hyperthyroidism, Meniere s disease, HTN, long-standing persistent AF w/ [id number] 3 on apixaban 5 mg BID, s/p cryoballoon PVI and RF ablation of the RSPV with me 08/11/22 who presents for Watchman implantation. He is currently on diltiazem 180 mg qday for rate control, prior prolonged episode of AF 11/2024 in setting of hyperthyroidism. He has a history of GIB 2/[address] cardiac morphology 05/24/22 shows a broccoli shaped appendage measuring 18x26 mm. ANTICOAGULATION STRATEGY PRIOR TO AND POST PROCEDURE: apixaban PROCEDURE NARRATIVE: The patient was able to give written informed consent after revisiting the ramesh portions of the risk versus benefit profile of the procedure. Patient verbalized strong understanding of this discussion and a strong desire to proceed with the procedure. Please note that this detailed informed consent process utilized mutual and shared decision making process between all parties involved, principally the physician and patient, but also potentially with input from the patient's selected family and friends. Please also note that the patient was seen and examined prior to this procedure by a non implanting physician who agreed that this patient would benefit from left atrial appendage closure as an alternative to long-term anticoagulation. The [facility] was [facility] in the post absorptive state. The patient was electively intubated for the procedure and given MAC sedation by my colleagues from anesthesia. Please see the detailed anesthesia records. The patient was then prepared and draped in a routing sterile fashion. Access was obtained at the right common femoral vein under ultrasound guidance with the Seldinger technique x2. Two J-tip wires were advanced into the vascular space. A 10 Fr sheath and a 16 Fr sheath were advanced over these wires into the femoral vein. The patient was then anticoagulated with unfractionated heparin in bolus to maintain an ACT range between 250-350 seconds. A 10F AccuNav ICE catheter was advanced into the RA. A VersaCross system with a pigtail wire and sheath utilizing RF energy was used to perform the transseptal puncture with a combination of fluoroscopic and echocardiographic guidance. The Watchman delivery double-curve curve sheath was advanced over the VersaCross wire into the left atrial body. The left atrial appendage was then cannulated with a 6mm angled pigtail catheter under fluoroscopic/echocardiographic guidance. Contrast injection was then performed through the pigtail catheter for sizing of the ABY os. The Watchman delivery sheath was advanced into the left atrial appendage. The dimensions of the ABY were then confirmed via multiple projections on ICE. A 27 mm Watchman FLX Pro device was then delivered into the left atrial appendage. Tug testing confirmed stable positioning. PASS criteria (positioning, anchoring, size, and seal) was assessed via a combination of doppler ICE and fluoroscopy. Compression of the device was measured to be 16-27%. Device was then released. Catheters and sheaths were withdrawn from the left atrium. Hemostasis was achieved with a figure-of-8 suture over the venotomy site. Protamine was given to reverse anticoagulation. The patient was then extubated and transferred to the PACU in stable condition. It is medically necessary that the patients who undergo percutaneous left atrial occlusion, are admitted as an inpatient. This patient had a recovery that was earlier than expected can be discharged today. COMPLICATIONS: none immediate. EBL: 50 cc RADIATION EXPOSURE: 750 mGy over 7.1 minutes CONCLUSIONS: Successful implantation of a 27 mm Watchman FLX Pro device for left atrial appendage closure. RECOMMENDATIONS: Recovery in the PACU and transfer to CVU for monitoring Bedrest for 2 hours after procedure Resume anticoagulation tonight CT cardiac morphology will be scheduled in 6 weeks to evaluate for lidia-device leaks and device related thrombus, if none seen, can discontinue anticoagulation and start clopidogrel 75 mg daily along with ASA 81 mg daily for 4.5 months after imaging No heavy lifting greater than 30 pounds for 1 week He has groin check scheduled 05/10/25, and return visit with me 07/26/25 at [place]. Emiliano Alaniz MD/[place], [facility], [facility] 05-02-2025 Procedure note Images from the original note were not included. IMPLANTATION OF A WATCHMAN FLX PRO FOR LEFT ATRIAL APPENDAGE CLOSURE PROCEDURES PERFORMED: Transseptal puncture Intracardiac echocardiography Left atrial appendage closure with 27 mm Watchman FLX Pro Ultrasound guided access GENERAL ANESTHESIA FOR PROCEDURE Please see anesthesia notes for details. INDICATION FOR PROCEDURE: Briefly, Singh Bowman is a 80 y.o. year old male with PMH dementia, hyperthyroidism, Meniere s disease, HTN, long-standing persistent AF w/ [id number] 3 on apixaban 5 mg BID, s/p cryoballoon PVI and RF ablation of the RSPV with me 08/11/22 who presents for Watchman implantation. He is currently on diltiazem 180 mg qday for rate control, prior prolonged episode of AF 11/2024 in setting of hyperthyroidism. He has a history of GIB 2/[address] cardiac morphology 05/24/22 shows a broccoli shaped appendage measuring 18x26 mm. ANTICOAGULATION STRATEGY PRIOR TO AND POST PROCEDURE: apixaban PROCEDURE NARRATIVE: The patient was able to give written informed consent after revisiting the ramesh portions of the risk versus benefit profile of the procedure. Patient verbalized strong understanding of this discussion and a strong desire to proceed with the procedure. Please note that this detailed informed consent process utilized mutual and shared decision making process between all parties involved, principally the physician and patient, but also potentially with input from the patient's selected family and friends. Please also note that the patient was seen and examined prior to this procedure by a non implanting physician who agreed that this patient would benefit from left atrial appendage closure as an alternative to long-term anticoagulation. The patient was [facility] in the post absorptive state. The patient was electively intubated for the procedure and given MAC sedation by my colleagues from anesthesia. Please see the detailed anesthesia records. The patient was then prepared and draped in a routing sterile fashion. Access was obtained at the right common femoral vein under ultrasound guidance with the Seldinger technique x2. Two J-tip wires were advanced into the vascular space. A 10 Fr sheath and a 16 Fr sheath were advanced over these wires into the femoral vein. The patient was then anticoagulated with unfractionated heparin in bolus to maintain an ACT range between 250-350 seconds. A 10F AccuNav ICE catheter was advanced into the RA. A VersaCross system with a pigtail wire and sheath utilizing RF energy was used to perform the transseptal puncture with a combination of fluoroscopic and echocardiographic guidance. The Watchman delivery double-curve curve sheath was advanced over the VersaCross wire into the left atrial body. The left atrial appendage was then cannulated with a 6mm angled pigtail catheter under fluoroscopic/echocardiographic guidance. Contrast injection was then performed through the pigtail catheter for sizing of the ABY os. The Watchman delivery sheath was advanced into the left atrial appendage. The dimensions of the ABY were then confirmed via multiple projections on ICE. A 27 mm Watchman FLX Pro device was then delivered into the left atrial appendage. Tug testing confirmed stable positioning. PASS criteria (positioning, anchoring, size, and seal) was assessed via a combination of doppler ICE and fluoroscopy. Compression of the device was measured to be 16-27%. Device was then released. Catheters and sheaths were withdrawn from the left atrium. Hemostasis was achieved with a figure-of-8 suture over the venotomy site. Protamine was given to reverse anticoagulation. The patient was then extubated and transferred to the PACU in stable condition. It is medically necessary that the patients who undergo percutaneous left atrial occlusion, are admitted as an inpatient. This patient had a recovery that was earlier than expected can be discharged today. COMPLICATIONS: none immediate. EBL: 50 cc RADIATION EXPOSURE: 750 mGy over 7.1 minutes CONCLUSIONS: Successful implantation of a 27 mm Watchman FLX Pro device for left atrial appendage closure. RECOMMENDATIONS: Recovery in the PACU and transfer to CVU for monitoring Bedrest for 2 hours after procedure Resume anticoagulation tonight CT cardiac morphology will be scheduled in 6 weeks to evaluate for lidia-device leaks and device related thrombus, if none seen, can discontinue anticoagulation and start clopidogrel 75 mg daily along with ASA 81 mg daily for 4.5 months after imaging No heavy lifting greater than 30 pounds for 1 week He has groin check scheduled 05/10/25, and return visit with me 07/26/25 at [place]. Emiliano Alaniz MD/[place], [facility], [facility] Cardiac Electrophysiology documented in this encounter [facility] 05-02-2025 History and physical note EP Pre-Procedural H&P HPI: Singh Bowman is a 80 y.o. year old male with PMH dementia, hyperthyroidism, Meniere s disease, HTN, long-standing persistent AF w/ [id number] 3 on apixaban 5 mg BID, s/p cryoballoon PVI and RF ablation of the RSPV with me 08/11/22 who presents for Watchman implantation. He is currently on diltiazem 180 mg qday for rate control, prior prolonged episode of AF 11/2024 in setting of hyperthyroidism. He has a history of GIB 2/[address] cardiac morphology 05/24/22 shows a broccoli shaped appendage measuring 18x26 mm. Medications: Current Outpatient Medications Medication Instructions apixaban (ELIQUIS) 5 mg, oral, 2 times daily, TAKE 1 TABLET BY MOUTH TWICE A DAY atorvastatin (LIPITOR) 20 mg, Daily dilTIAZem XR (DILACOR XR) 180 mg, oral, Daily finasteride (PROSCAR) 5 mg, Daily furosemide (LASIX) 20 mg, oral, As needed methIMAzole (TAPAZOLE) 5 mg, 2 times daily ondansetron ODT (ZOFRAN ODT) 4 mg, oral, Every 8 hours PRN tamsulosin (FLOMAX) 0.4 mg, Nightly Allergies: No Known Allergies Family History: Family History Problem Relation Age of Onset Stroke Mother Heart disease Mother Arthritis Mother Stroke Father Arthritis Father Colon cancer Sister Breast cancer Sister Physical Exam: There were no vitals taken for this visit. General: No acute distress, alert, awake, and oriented x3 HEENT: clear oropharynx, moist mucous membranes, no JVD Cardiovascular: Regular rate rhythm, normal S1-S2, no rubs murmurs or gallops Pulmonary: Clear to auscultation bilaterally, no wheezes, rales, rhonchi Extremities: Warm and well perfused, no lower extremity edema Plan: Risks and benefits reviewed/discussed with the patient and available family members, and the patient is willing to proceed. He has groin check scheduled 10/3/25, and return visit with me 07/26/25 at [place]. He will be scheduled for CT cardiac morphology in 6 weeks. Emiliano Alaniz MD/[place], [facility], [facility] 05-02-[facility] History and physical note EP Pre-Procedural H&P HPI: Singh Bowman is a 80 y.o. year old male with PMH dementia, hyperthyroidism, Meniere s disease, HTN, long-standing persistent AF w/ [id number] 3 on apixaban 5 mg BID, s/p cryoballoon PVI and RF ablation of the RSPV with me 08/11/22 who presents for Watchman implantation. He is currently on diltiazem 180 mg qday for rate control, prior prolonged episode of AF 11/2024 in setting of hyperthyroidism. He has a history of GIB 2/[address] cardiac morphology 05/24/22 shows a broccoli shaped appendage measuring 18x26 mm. Medications: Current Outpatient Medications Medication Instructions apixaban (ELIQUIS) 5 mg, oral, 2 times daily, TAKE 1 TABLET BY MOUTH TWICE A DAY atorvastatin (LIPITOR) 20 mg, Daily dilTIAZem XR (DILACOR XR) 180 mg, oral, Daily finasteride (PROSCAR) 5 mg, Daily furosemide (LASIX) 20 mg, oral, As needed methIMAzole (TAPAZOLE) 5 mg, 2 times daily ondansetron ODT (ZOFRAN ODT) 4 mg, oral, Every 8 hours PRN tamsulosin (FLOMAX) 0.4 mg, Nightly Allergies: No Known Allergies Family History: Family History Problem Relation Age of Onset Stroke Mother Heart disease Mother Arthritis Mother Stroke Father Arthritis Father Colon cancer Sister Breast cancer Sister Physical Exam: There were no vitals taken for this visit. General: No acute distress, alert, awake, and oriented x3 HEENT: clear oropharynx, moist mucous membranes, no JVD Cardiovascular: Regular rate rhythm, normal S1-S2, no rubs murmurs or gallops Pulmonary: Clear to auscultation bilaterally, no wheezes, rales, rhonchi Extremities: Warm and well perfused, no lower extremity edema Plan: Risks and benefits reviewed/discussed with the patient and available family members, and the patient is willing to proceed. He has groin check scheduled 05/10/25, and return visit with me 07/26/25 at [place]. He will be scheduled for CT cardiac morphology in 6 weeks. Emiliano Alaniz MD/[place], [facility], [facility] Cardiac Electrophysiology documented in this encounter [facility] 05-01-2025 Miscellaneous Notes Surgeon: Dr Butler Type of surgery: rt thulium laser stone surgery Date of surgery: 05/21/25 Surgery location: [facility] Type of anesthesia: general On a blood thinner?: Eliquis Indication? A-Fib On an antiplatelet?: none SDate of last EK03/29/25 Last office visit date and who they saw: 03/18/25 Their preference of how long to hold blood thinners/antiplatelet: 48 hours prior History of CVA/TIA, DVT/PE? Not documented ATTN: Do they need any additional info faxed(such as office note, ekg, testing, Etc?) pt needs pre-op clearance also thx slm Moderate cardiac preoperative risk, non prohibitive, can proceed, Eliquis can be held 2-3 days periprocedurally Clearance note faxed back. documented in this encounter [facility] 05-01-2025 Telephone encounter Note Surgeon: Dr Butler Type of surgery: rt thulium laser stone surgery Date of surgery: 05/21/25 Surgery location: [facility] Type of anesthesia: general On a blood thinner?: Eliquis Indication? A-Fib On an antiplatelet?: none SDate of last EK03/29/25 Last office visit date and who they saw: 03/18/25 Their preference of how long to hold blood thinners/antiplatelet: 48 hours prior History of CVA/TIA, DVT/PE? Not documented ATTN: Do they need any additional info faxed(such as office note, ekg, testing, Etc?) pt needs pre-op clearance also thx slm [facility] 05-01-2025 Telephone encounter Note Moderate cardiac preoperative risk, non prohibitive, can proceed, Eliquis can be held 2-3 days periprocedurally [facility] 05-01-2025 Telephone encounter Note Clearance note faxed back. [facility] 04-26-2025 History of Present illness Narrative Images from the original note were not included. Suture Removal Patient here for suture removal: No complaints of redness, drainage or swelling at site, compliant with wound care. Location: left quaker Procedure Performed: Excision Date of Procedure: 04/18/2025 Medications: none All pertinent medical history, medications, and allergies were reviewed. General Exam: alert, oriented to person, place, and time, normal affect, well appearing Unaccompanied A focused exam completed based on patient reported problems, see below: Skin Exam 1. ENCOUNTER FOR REMOVAL OF SUTURES Left Sabianism Sutures are intact, Skin edges are well-approximated, Mild erythema along incision line, Crusting noted along incision line Suture Removal: Procedure: Sutures were removed without difficulty. Tincture of Benzoin was applied around site in preparation of steri-strips. Steri-strips were applied Post-Procedure instructions: Instructed to discontinue wound care., Instructed to keep steri strips on for at least 5-7 days., Pathology results discussed. Next Visit: as scheduled documented in this encounter [facility] 04-25-2025 Miscellaneous Notes No answer, no voicemail for reminder call. Will try again later. tkm JZL: during reminder call for Watchman, mentioned pt had IVP a few days ago for kidney stones and was placed on doxycycline for possible UTI. confirms pt did not miss any doses of Eliquis and that pt never had any UTI symptoms (denied fever, frequency, etc) and will have completed doxy before the Watchman date. Anything to change? Thank you, Lakeisha Called and spoke with pt's to provide pre op reminder call (pt was driving) Procedure: Watchman Date: 05/02 at 1:30 PM Location - [facility] Entrance C Arrive @ Noon Fasting - NPO after MN Medications to hold - Hold Eliquis night before/morning of New SGLT2/GLP1 - denies Continue A/C for CDVN - n/a LABS - reminded to go Pre op test - n/a Vendor confirmed - yes Anesthesia added to case - yes PARTH added to case - n/a, ICE Vendor invited See note to JZL above [x] Pt v/u of all discussed. Questions answered, denied further and v/u of all. Advised to call back if any further questions. [] Left message with details and reviewed instructions above - Advised pt to review instructions and call with any new meds, questions or to review pre op instructions [] Unable to leave message No changes, proceed to procedure Called pt back with JZL response below and LM on VM. Advised to call back if any questions, provided call back number. tkm [facility] Telephone encounter Note No answer, no voicemail for reminder call. Will try again later. tkm [facility] 04-25-2025 Telephone encounter Note JZL: during reminder call for Watchman, mentioned pt had IVP a few days ago for kidney stones and was placed on doxycycline for possible UTI. confirms pt did not miss any doses of Eliquis and that pt never had any UTI symptoms (denied fever, frequency, etc) and will have completed doxy before the Watch date. Anything to change? Thank you, Lakeisha Called and spoke with pt's to provide pre op reminder call (pt was driving) Procedure: Watchman Date: 05/02 at 1:30 PM Location - [facility] Entrance C Arrive @ Noon Fasting - NPO after MN Medications to hold - Hold Eliquis night before/morning of New SGLT2/GLP1 - denies Continue A/C for CDVN - n/a LABS - reminded to go Pre op test - n/a Vendor confirmed - yes Anesthesia added to case - yes PARTH added to case - n/a, ICE Vendor invited See note to JZL above [x] Pt v/u of all discussed. Questions answered, denied further and v/u of all. Advised to call back if any further questions. [] Left message with details and reviewed instructions above - Advised pt to review instructions and call with any new meds, questions or to review pre op instructions [] Unable to leave message [facility] 04-25-2025 Telephone encounter Note No changes, proceed to procedure [facility] 04-25-2025 Telephone encounter Note Called pt back with JZL response below and LM on VM. Advised to call back if any questions, provided call back number. tkm [facility] 04-22-2025 History of Present illness Narrative Images from the original note were not included. Subjective Patient ID: Singh Bowman is a 80 y.o. male who presents for Toe Pain (Singh Bowman 80yo New Patient relates he dropped wheel kletsel dehe wintun on his Left great toe. DOI 03/16/2025,Patient states his pain is gone, but the nail was loose. Bleeding and bruising at the time. Patient is requesting all nails be trimmed if possible today and questions concerning nail fungus. Patient is taking Eliquis at this time. SS 11.5/DOI 03/16/2025. ). HPI This is a new patient who presents to clinic with his for concern of the an injury to the left great toe sustained in early March. He states that 03/16/2025 he had a wheel barrel fall on his toe. He had pain initially but that pain has since subsided. He states that the thing that is most concerning is that he still has color changes to the nail in the nail appears very loose. He states that the bleeding which was present for a few weeks has slowed down and almost stopped. He does also relate very thickened, elongated toenails which are very difficult for him to trim. He relates discomfort when the nails get thick, long. His son has tried trimming them in the past but they are very difficult for him to trim as well. Review of Systems Constitutional: Negative for activity change and appetite change. Respiratory: Negative for chest tightness and shortness of breath. Cardiovascular: Negative for chest pain. Musculoskeletal: Positive for arthralgias and gait problem. Skin: Positive for color change. Negative for wound. Neurological: Negative for weakness and numbness. Psychiatric/Behavioral: Negative for agitation and behavioral problems. Hematological: Does not bruise/bleed easily. Endocrine: Negative for cold intolerance and heat intolerance. Allergic/Immunologic: Negative for immunocompromised state. Past medical History Past Medical History: Diagnosis Date Arthritis Cataract 2020 Cholecystitis Colon polyps COVID-19 Disease of thyroid gland 2023 ETD (eustachian tube dysfunction) Gallbladder disorder GERD (gastroesophageal reflux disease) 1998 History of medical problems herniated disk Hypertension Memory loss 2023 Meniere disease Numbness 2009 Peptic ulceration 1986 Peripheral angiopathy Peripheral neuropathy 2009 Sensorineural hearing loss of both ears Varicella 1950 Visual impairment 1965 Medications Current Outpatient Medications: apixaban (Eliquis) 5 MG tablet, Take 1 tablet by mouth in the morning and 1 tablet before bedtime., Disp: , Rfl: atorvastatin (Lipitor) 20 MG tablet, Take 1 tablet (20 mg) by mouth Daily, Disp: 100 tablet, Rfl: 3 dilTIAZem CD (Cardizem CD) 180 MG 24 hr capsule, Take 180 mg by mouth Daily, Disp: , Rfl: finasteride (Proscar) 5 MG tablet, TAKE ONE TABLET BY MOUTH DAILY, Disp: 90 tablet, Rfl: 3 furosemide (Lasix) 20 MG tablet, Take 20 mg by mouth Daily as needed, Disp: , Rfl: methIMAzole (Tapazole) 5 MG tablet, Take 1 tablet (5 mg) by mouth Daily, Disp: 90 tablet, Rfl: 1 mupirocin (Bactroban) 2 % ointment, Apply to affected area 3x daily for 7 days, 30 day supply, Disp: 22 g, Rfl: 0 Allergies Patient has no known allergies. Past Surgical History Past Surgical History: Procedure Laterality Date APPENDECTOMY 1967 BACK SURGERY 1986 CARDIAC ELECTROPHYSIOLOGY STUDY AND ABLATION 08/11/2022 CARDIAC SURGERY 2020 CARDIOVERSION 2021 CATARACT EXTRACTION, BILATERAL 2018 CHOLECYSTECTOMY 2014 COLONOSCOPY 12/19/2024 COLONOSCOPY W/ POLYPECTOMY 2013 CYST REMOVAL Left 04/2025 Sabianism area EYE SURGERY 2021 HEMORRHOIDECTOMY 05/2019 SPINE SURGERY 1986 TONSILLECTOMY 195 Family History Family History Problem Relation Name Age of Onset Heart disease Mother Milka Stroke Mother Milka Coronary artery disease Mother Milka Alzheimer's disease Mother Milka Alcohol abuse Father Eulogio Hearing loss Father Eulogio Cancer Sister Rebecca Cancer Sister Rebecca Cancer Sister Leda Cancer Sister Rebecca Cancer Sister Rebecca Objective Physical Exam Constitutional: General: He is not in acute distress. Comments: Presents to clinic ambulating unassisted. Accompanied by his . HENT: Head: Normocephalic and atraumatic. Cardiovascular: Pulses: Normal pulses. Pulmonary: Effort: Pulmonary effort is normal. No respiratory distress. Musculoskeletal: Cervical back: Neck supple. Skin: Capillary Refill: Capillary refill takes less than 2 seconds. Comments: Six toenails exhibit clinical mycosis with thickened appearance, yellow discoloration, crumbly texture and subungual debris. Left hallux toenail exhibits 100 percent onycholysis. There is some ecchymosis of the nailbed without active drainage. There is no cellulitis or purulence. No tenderness to palpation of the hallux on the left side. All 10 toenails are elongated. Tenderness to palpation: Right hallux toenail. Neurological: Mental Status: He is alert. Comments: No loss of protective sensation, gross sensation intact. Psychiatric: Mood and Affect: Mood normal. Behavior: Behavior normal. Assessment/Plan ICD-10-CM 1. Contusion of left great toe with damage to nail, initial encounter S90.212A 2. Onychomycosis B35.1 3. Onychodystrophy L60.3 4. Pain in both feet M79.671 M79.672 Patient was examined and evaluated. 10 toenails were debrided in length and thickness today utilizing a nail nipper and electric bur crankshaft grinder without incident. I was able to debride the entirety of the left hallux toenail without incident. Nailbed is intact after debridement. No active drainage. He will monitor the area closely for drainage and call immediately if he notices drainage or increased pain of the left hallux. Patient noted relief of symptomatology post-debridement. I have recommended moisturizing the feet on a daily basis and discussed proper pedal hygiene. Follow-up 3 months for continued palliative nail care. This note was created with the assistance of a speech recognition program. While intending to generate a timely document that accurately reflects the content of the visit, no guarantee can be provided that every grammatical or spelling mistake has been or will be identified or corrected. Thank you for your understanding. Zeb Decker DPM documented in this encounter [facility] 04-19-2025 Hospital Discharge instructions Patient Education 04/19/2025 10:11:55 Intravenous Pyelogram, Pbzo-id-Noln Intravenous Pyelogram An intravenous pyelogram is a type of X-ray that is used to check for problems in the kidneys, ureters, and bladder. This test can help your doctor find problems, such as: Kidney stones. Bladder stones. A prostate that has become large. Tumors. Tell your doctor about: Any allergies you have. All medicines you are taking. These include vitamins, herbs, eye drops, creams, and iual-fez-rkbmyzt medicines. Any problems you or family members have had with anesthesia. Any bleeding problems you have. Any surgeries you have had. Any other medical conditions you have. Whether you are or may be . What are the risks? Your doctor will talk with you about risks. These may include: Feeling like you may vomit (nausea). Having a reaction to the dye that is used during the test. What happens before the procedure? Follow instructions from your doctor about eating or drinking. Follow instructions from your doctor about taking an oral bowel prep. Ask your doctor about changing or stopping: ?Your normal medicines. ?Vitamins, herbs, and supplements. ?Oelm-plt-abgskdr medicines. You may need to remove glasses, jewelry, and any other metal objects. You may be asked to put on a hospital gown. What happens during the procedure? You will lie down on an exam table. An IV tube will be inserted into one of your veins. A dye will be put into the IV tube. The dye helps your doctor to see your kidneys, ureters, and bladder better on X-rays. When the dye goes in, you may feel warm or have a strange taste in your mouth. The feeling or the taste will go away in a short time. A network technician will take X-rays. To make the X-rays clearer, the network technician: ?May press on your belly (abdomen). ?May ask you not to move for long periods of time. ?May ask you to change positions from time to time. You may be asked to pee before the last X-ray. The procedure may vary among doctors and hospitals. What can I expect after the procedure? You can go back to your normal activities. You can safely drive home. Follow these instructions at home: Drink enough fluid to keep your pee pale yellow. This will help flush out the dye in your body. Take frxe-zqm-pgfwvgx and prescription medicines only as told by your doctor. Return to your normal activities when your doctor says that it is safe. It is up to you to get your test results. Ask how to get your results when they are ready. Contact a doctor if: You start peeing less than you normally do. Get help right away if: You feel like you may vomit. You vomit. You have itching or itchy, red, swollen areas on the skin (hives). You have trouble breathing. Your throat swells. You have chest pain. You have chills or a fever. These symptoms may be an emergency. Get help right away. Call 911. Do not wait to see if the symptoms will go away. Do not drive yourself to the hospital. This information is not intended to replace advice given to you by your health care provider. Make sure you discuss any questions you have with your health care provider. Document Revised: 05/03/2023 Document Reviewed: 05/03/2023 [employer] Patient Education 2023 [employer]. 04/19/2025 09:53:49 Dietary Guidelines to Help Prevent Kidney Stones Dietary Guidelines to Help Prevent Kidney Stones Kidney stones are deposits of minerals and salts that form inside your kidneys. Your risk of developing kidney stones may be greater depending on your diet, your lifestyle, the medicines you take, and whether you have certain medical conditions. Most people can lower their risks of developing kidney stones by following these dietary guidelines. Your dietitian may give you more specific instructions depending on your overall health and the type of kidney stones you tend to develop. What are tips for following this plan? Reading food labels Choose foods with no salt added or low-salt labels. Limit your salt (sodium) intake to less than 1,500 mg a day. Choose foods with calcium for each meal and snack. Try to eat about 300 mg of calcium at each meal. Foods that contain 200 500 mg of calcium a serving include: ?8 oz (237 mL) of milk, zkxmhxn-bzqprsvucric-qzeej milk, and calcium-fortifiedfruit juice. Calcium-fortified means that calcium has been added to these drinks. ?8 oz (237 mL) of kefir, yogurt, and soy yogurt. ?4 oz (114 g) of tofu. ?1 oz (28 g) of cheese. ?1 cup (150 g) of dried figs. ?1 cup (91 g) of cooked broccoli. ?One 3 oz (85 g) can of sardines or mackerel. Most people need 1,000 1,500 mg of calcium a day. Talk to your dietitian about how much calcium is recommended for you. Shopping Buy plenty of fresh fruits and vegetables. Most people do not need to avoid fruits and vegetables, even if these foods contain nutrients that may contribute to kidney stones. When shopping for convenience foods, choose: ?Whole pieces of fruit. ?Pre-made salads with dressing on the side. ?Low-fat fruit and yogurt smoothies. Avoid buying frozen meals or prepared deli foods. These can be high in sodium. Look for foods with live cultures, such as yogurt and kefir. Choose high-fiber grains, such as whole-wheat breads, oat bran, and wheat cereals. Cooking Do not add salt to food when cooking. Place a salt shaker on the table and allow each person to add their own salt to taste. Use vegetable protein, such as beans, textured vegetable protein (TVP), or tofu, instead of meat in pasta, casseroles, and soups. Meal planning Eat less salt, if told by your dietitian. To do this: ?Avoid eating processed or pre-made food. ?Avoid eating fast food. Eat less animal protein, including cheese, meat, poultry, or fish, if told by your dietitian. To do this: ?Limit the number of times you have meat, poultry, fish, or cheese each week. Eat a diet free of meat at least 2 days a week. ?Eat only one serving each day of meat, poultry, fish, or seafood. ?When you prepare animal proteins, cut pieces into small portion sizes. For most meat and fish, one serving is about the size of the palm of your hand. Eat at least five servings of fresh fruits and vegetables each day. To do this: ?Keep fruits and vegetables on hand for snacks. ?Eat one piece of fruit or a handful of berries with breakfast. ?Have a salad and fruit at lunch. ?Have two kinds of vegetables at dinner. You may be told to limit foods that are high in a substance called oxalate. These include: ?Spinach (cooked), rhubarb, beets, sweet potatoes, and Malian chard. ?Peanuts. ?Potato chips, moroccan fries, and baked potatoes with skin on. ?Nuts and nut products. ?Chocolate. If you regularly take a diuretic medicine, make sure to eat at least 1 or 2 servings of fruits or vegetables that are high in potassium each day. These include: ?Avocado. ?Banana. ?Sharon, prune, carrot, or tomato juice. ?Baked potato. ?Cabbage. ?Beans and split peas. Lifestyle Drink enough fluid to keep your urine pale yellow. This is the most important thing you can do. Spread your fluid intake throughout the day. If you drink alcohol: ?Limit how much you have to: ?0 1 drink a day for women who are not . ?0 2 drinks a day for men. ?Know how much alcohol is in your drink. In the [place] one drink equals one 12 oz bottle of beer (355 mL), one 5 oz glass of wine (148 mL), or one 1 oz glass of hard liquor (44 mL). Lose weight if told by your health care provider. Work with your dietitian to find an eating plan and weight loss strategies that work best for you. General information Talk to your health care provider and dietitian about taking daily supplements. Depending on your health and the cause of your kidney stones, you may be told: ?Do not take high-dose supplements of vitamin C (1,000 mg a day or more). ?To take a calcium supplement. ?To take a daily probiotic supplement. ?To take other supplements such as magnesium, fish oil, or vitamin B6. Take quhb-jdr-msbrkta and prescription medicines only as told by your health care provider. These include supplements. What foods should I limit? Limit your intake of the following foods, or eat them as told by your dietitian. Vegetables Spinach. Rhubarb. Beets. Canned vegetables. Pickles. Olives. Baked potatoes with skin. Grains Wheat bran. Baked goods. Salted crackers. Cereals high in sugar. Meats and other proteins Nuts. Nut butters. Large portions of meat, poultry, or fish. Salted, precooked, or cured meats, such as sausages, meat loaves, and hot dogs. Dairy Cheeses. Beverages Regular soft drinks. Regular vegetable juice. Seasonings and condiments Seasoning blends with salt. Salad dressings. Soy sauce. Ketchup. Barbecue sauce. Other foods Canned soups. Canned pasta sauce. Casseroles. Pizza. Lasagna. Frozen meals. Potato chips. Cambodian fries. The items listed above may not be a complete list of foods and beverages you should limit. Contact a dietitian for more information. What foods should I avoid? Talk to your dietitian about specific foods you should avoid based on the type of kidney stones you have and your overall health. Fruits Grapefruit. The item listed above may not be a complete list of foods and beverages you should avoid. Contact a dietitian for more information. Summary Kidney stones are deposits of minerals and salts that form inside your kidneys. You can lower your risk of kidney stones by making changes to your diet. The most important thing you can do is drink enough fluid. Drink enough fluid to keep your urine pale yellow. Talk to your dietitian about how much calcium you should have each day, and eat less salt and animal protein as told by your dietitian. This information is not intended to replace advice given to you by your health care provider. Make sure you discuss any questions you have with your health care provider. Document Revised: 11/04/2022 Document Reviewed: 11/04/2022 Elsevier Patient Education 2023 [employer] Follow Up Care 04/01/2025 10:12:36 With:CARRIE PALMA, Medina Vazquez, URL Address: [address] [place] [address] [place] [address]- When: Unknown [facility] 04-19-2025 Note Patient Education Nephrology Dietary Guidelines to Help Prevent Kidney Stones Kidney stones are deposits of minerals and salts that form inside your kidneys. Your risk of developing kidney stones may be greater depending on your diet, your lifestyle, the medicines you take, and whether you have certain medical conditions. Most people can lower their risks of developing kidney stones by following these dietary guidelines. Your dietitian may give you more specific instructions depending on your overall health and the type of kidney stones you tend to develop. What are tips for following this plan? Reading food labels ??? Choose foods with no salt added or low-salt labels. Limit your salt (sodium) intake to less than 1,500 mg a day. ??? Choose foods with calcium for each meal and snack. Try to eat about 300 mg of calcium at each meal. Foods that contain 200?500 mg of calcium a serving include: ? 8 oz (237 mL) of milk, ryaronm-etwsackyybjl-gbyef milk, and calcium-fortifiedfruit juice. Calcium-fortified means that calcium has been added to these drinks. ? 8 oz (237 mL) of kefir, yogurt, and soy yogurt. ? 4 oz (114 g) of tofu. ? 1 oz (28 g) of cheese. ? 1 cup (150 g) of dried figs. ? 1 cup (91 g) of cooked broccoli. ? One 3 oz (85 g) can of sardines or mackerel. Most people need 1,000?1,500 mg of calcium a day. Talk to your dietitian about how much calcium is recommended for you. Shopping ??? Buy plenty of fresh fruits and vegetables. Most people do not need to avoid fruits and vegetables, even if these foods contain nutrients that may contribute to kidney stones. ??? When shopping for convenience foods, choose: ? Whole pieces of fruit. ? Pre-made salads with dressing on the side. ? Low-fat fruit and yogurt smoothies. ??? Avoid buying frozen meals or prepared deli foods. These can be high in sodium. ??? Look for foods with live cultures, such as yogurt and kefir. ??? Choose high-fiber grains, such as whole-wheat breads, oat bran, and wheat cereals. Cooking ??? Do not add salt to food when cooking. Place a salt shaker on the table and allow each person to add their own salt to taste. ??? Use vegetable protein, such as beans, textured vegetable protein (TVP), or tofu, instead of meat in pasta, casseroles, and soups. Meal planning ??? Eat less salt, if told by your dietitian. To do this: ? Avoid eating processed or pre-made food. ? Avoid eating fast food. ??? Eat less animal protein, including cheese, meat, poultry, or fish, if told by your dietitian. To do this: ? Limit the number of times you have meat, poultry, fish, or cheese each week. Eat a diet free of meat at least 2 days a week. ? Eat only one serving each day of meat, poultry, fish, or seafood. ? When you prepare animal proteins, cut pieces into small portion sizes. For most meat and fish, one serving is about the size of the palm of your hand. ??? Eat at least five servings of fresh fruits and vegetables each day. To do this: ? Keep fruits and vegetables on hand for snacks. ? Eat one piece of fruit or a handful of berries with breakfast. ? Have a salad and fruit at lunch. ? Have two kinds of vegetables at dinner. ??? You may be told to limit foods that are high in a substance called oxalate. These include: ? Spinach (cooked), rhubarb, beets, sweet potatoes, and Malian chard. ? Peanuts. ? Potato chips, moroccan fries, and baked potatoes with skin on. ? Nuts and nut products. ? Chocolate. ??? If you regularly take a diuretic medicine, make sure to eat at least 1 or 2 servings of fruits or vegetables that are high in potassium each day. These include: ? Avocado. ? Banana. ? Sharon, prune, carrot, or tomato juice. ? Baked potato. ? Cabbage. ? Beans and split peas. Lifestyle ??? Drink enough fluid to keep your urine pale yellow. This is the most important thing you can do. Spread your fluid intake throughout the day. ??? If you drink alcohol: ? Limit how much you have to: ? 0?1 drink a day for women who are not . ? 0?2 drinks a day for men. ? Know how much alcohol is in your drink. In the [place] one drink equals one 12 oz bottle of beer (355 mL), one 5 oz glass of wine (148 mL), or one 1? oz glass of hard liquor (44 mL). ??? Lose weight if told by your health care provider. Work with your dietitian to find an eating plan and weight loss strategies that work best for you. General information ??? Talk to your health care provider and dietitian about taking daily supplements. Depending on your health and the cause of your kidney stones, you may be told: ? Do not take high-dose supplements of vitamin C (1,000 mg a day or more). ? To take a calcium supplement. ? To take a daily probiotic supplement. ? To take other supplements such as magnesium, fish oil, or vitamin B6. ??? Take uqeg-wmx-xrusarh and prescription medicines only as told by your health (more content not included)... [facility] 04-18-2025 History of Present illness Narrative Images from the original note were not included. Subjective Singh Bowman is a 80 y.o. male who presents for the following: Excision. Location: Left quaker Date of biopsy: 03/12/25 Diagnosis: Epidermal inclusion cyst Pre-Op Checklist: History of pacemaker/defibrillator: No History of joint replacement in the past 2 years: No History of HIV/Hepatitis B/Hepatitis C: No Latex allergy: No Is the patient currently on a blood thinner? Yes. Eliquis (apixaban). The patient was recommended to continue taking their blood thinner as usual before, during, and after the procedure. All pertinent medical history, medications, and allergies were reviewed. Surgical assistants: Divya Baez CMA and Cristina Hector MA Objective Well appearing patient in no apparent distress; mood and affect are within normal limits. Skin Exam 1. EPIDERMAL INCLUSION CYST Left Sabianism 2.0 x 1.6 cm erythematous, subcutaneous nodule Skin excision - Left Sabianism Excision method: elliptical Lesion length (cm): 2 Lesion width (cm): 1.6 Margin per side (cm): 0 Total excision diameter (cm): 2 Informed consent: discussed and consent obtained Anesthesia: the lesion was anesthetized in a standard fashion Anesthetic: 1% lidocaine w/ epinephrine 1-100,000 local infiltration (3 cc) Instrument used: #15 blade Hemostasis achieved with: electrodesiccation Outcome: patient tolerated procedure well with no complications Skin repair - Left Sabianism Complexity: Intermediate Final length (cm): 2.6 Subcutaneous layers (deep stitches): Suture size: 5-0 Suture type: Monocryl (poliglecaprone 25) Stitches: Running subcuticular Fine/surface layer approximation (top stitches): Suture size: 5-0 Suture type comment: Surgipro Stitches: simple running Suture removal (days): 7 Post-procedure details: sterile dressing applied and wound care instructions given Dressing type: pressure dressing and petrolatum mupirocin (Bactroban) 2 % ointment - Left Sabianism Apply to affected area 3x daily for 7 days, 30 day supply Specimen A - Dermatopathology exam Differential Diagnosis: EIC Check Margins: No Size of lesion: 2.0 x 1.6 cm 2. ACTINIC KERATOSIS Right Medial [place] Erythematous scaly papules Patient was counseled regarding these sun-induced growths that can develop into squamous cell carcinoma if left untreated. Discussed treatment options, including cryotherapy and topical preparations. It was emphasized that any treated lesions that fail to resolve should be re-evaluated. Patient to have this area treated at suture removal in 7 days. Follow up: 7 days for s/r documented in this encounter [facility] 04-10-2025 History of Present illness Narrative Associated Problem(s): Longstanding persistent atrial fibrillation (HCC) Managed by cardiol mara watchman Images from the original note were not included. Subjective ?Quick Links Last Note in Specialty Snapshot Edit RFV/CC Edit Screenings Current Meds Patient ID: Singh Bowman is a 80 y.o. male who presents for Hospital Follow-up. HPI Flowsheet Row Patient Outreach from 04/03/2025 in [facility] with Brooks Jeffery LPN Hospital Information ED, Hospital or Senior Care Facility Discharge? ED Patient has been contacted within 2 days of being seen in the ED Yes Diagnosis Right ureteral stone (Primary Dx). Discharge Date 03/29/25 Discharged To: Home Setting Discharge Hospital Engagement Admission Date 03/29/25 Medications Discharge [...] have a primary care provider? Yes [Dr. Mariela Rashid, [facility].] Nursing Interventions Educated patient [...] with 3 mm calculus in the midportion of the right ureter.), CT CHEST WO CONT (IMPRESSION: * No acute traumatic findings in the chest.), CT facial bones without contrast (IMPRESSION: Normal CT facial bones.), CT BRAIN WO CONT (IMPRESSION: * No acute intracranial abnormality). History of Present Illness The patient presents for a routine check and follow-up from the ER. He has been under the care of Dr. Butler, a urologist, who performed a TURP procedure earlier this year. A follow-up appointment with Dr. Sanchez is scheduled for next week, during which he will undergo a KUB x-ray. His last visit to the ER was due to significant pain, which was initially managed with [place]. However, this medication seemed to exacerbate his [...] (Flomax) 0.4 MG 24 hr capsule HYDROcodone-acetaminophen ([place]) 5-325 MG tablet ondansetron ODT (Zofran-ODT) 4 [...] lb 9.6 oz SpO2 98% BMI 25.50 kg/m Physical Exam Constitutional: Appearance: He is normal [...] which he will undergo a KUB x-ray. - He is advised to continue with his current medication regimen and maintain adequate hydration. 2. Fall: - He experienced a fall recently, tripping over his dog's hose. He has a little balance problem and uses a cane most of the time. - Monitoring for any further balance issues is recommended. Follow-up: The patient will follow up in August 2025 or sooner if any complications arise. documented in this encounter [facility] 03-18-2025 History of Present illness Narrative Singh Barrow Jose Date of visit: 03/18/2025 Date of : 1945 Age: 80 y.o. Patient Active Problem List Diagnosis Rectal bleeding Hx of adenomatous colonic polyps Adenomatous polyp of transverse colon Paroxysmal atrial fibrillation (CMS-HCC) Mixed hyperlipidemia Shortness of breath Longstanding persistent atrial fibrillation (CMS-HCC) Pre-op evaluation No Known Allergies Current Outpatient Medications Medication Sig Dispense Refill apixaban (ELIQUIS) 5 mg tablet Take 1 tablet (5 mg total) by mouth in the morning and 1 tablet (5 mg total) before bedtime. TAKE 1 TABLET BY MOUTH TWICE A DAY. 60 tablet 8 dilTIAZem XR (DILACOR XR) 180 MG 24 hr capsule Take 1 capsule (180 mg total) by mouth in the morning. 90 capsule 3 finasteride (PROSCAR) 5 mg tablet Take 1 tablet (5 mg total) by mouth in the morning. methIMAzole (TAPAZOLE) 5 mg tablet Take 1 tablet (5 mg total) by mouth in the morning and 1 tablet (5 mg total) before bedtime. tamsulosin (FLOMAX) 0.4 mg capsule Take 1 capsule (0.4 mg total) by mouth nightly. atorvastatin (LIPITOR) 20 mg tablet Take 1 tablet (20 mg total) by mouth in the morning. (Patient not taking: Reported on 03/18/2025) methazolAMIDE (NEPTAZANE) 50 mg tablet Take 1 tablet (50 mg total) by mouth in the morning and 1 tablet (50 mg total) before bedtime. (Patient not taking: Reported on 11/07/2024) No current facility-administered medications for this visit. Chief Complaint Patient presents with Follow-up OV to discuss watchman with BRIDGET 05/02 Glen QUEZADA - sandra w. pt History of Present Illness 80-year-old male is here for pre Watchman procedure evaluation He has longstanding persistent atrial fibrillation he does have mild dementia with some balance issues no history of falls however he did have a recent lower GI bleed due to hemorrhoids with drop of hemoglobin from 14-12.5 g of dL Currently he is not actively bleeding and there is no evidence of hematochezia He does have bilateral lower extremity edema. Has been a little worse over the past few months no shortness of breath orthopnea or weight gain Past Medical History: Diagnosis Date Angina pectoris Arthritis 2009 Atrial fibrillation ([facility]) Back pain Benign prostatic hyperplasia Cataracts, bilateral Colon polyps GERD (gastroesophageal reflux disease) Hemorrhoids HL (hearing loss) 2021 Hyperlipidemia Hypertension 2018 Meniere disease 06/2022 Neuromuscular disorder ([facility]) 2009 Peptic ulceration 1979 Peripheral angiopathy in diseases classified elsewhere Peripheral neuropathy Varicella 1952 Visual impairment 1965 No data recorded No data recorded No data recorded Past Surgical History: Procedure Laterality Date Afib Ablation with PARTH-NEL, CRYO, ICE N/A 08/11/2022 Performed by Emiliano Alaniz MD at [facility] () APPENDECTOMY 1967 BACK SURGERY 1985 CARDIAC SURGERY 08/11/2022 Ablation for Afib CHOLECYSTECTOMY 09/26/2013 COLONOSCOPY 08/14/2010 COLONOSCOPY 10/16/2012 COLONOSCOPY 10/20/2015 COLONOSCOPY N/A 08/31/2019 Performed by Jed Worthington MD at [facility] COLONOSCOPY DIAGNOSTIC / SCREENING N/A 12/19/2024 Performed by Ishaan Zaman MD at [facility] COLONOSCOPY DIAGNOSTIC / SCREENING N/A 10/14/2023 Performed by Ishaan Zaman MD at [facility] EYE SURGERY 2018 PHACO KELMAN I IMPLANT INTRAOCULAR LENS Right 05/09/2018 Performed by Aracelis Auguste MD at [facility] PHACO KELMAN I IMPLANT INTRAOCULAR LENS Left 04/25/2018 Performed by Aracelis Auguste MD at [facility] SKIN BIOPSY 2008 SPINE SURGERY 1985 TONSILLECTOMY 1952 Family History Problem Relation Age of Onset Stroke Mother Heart disease Mother Arthritis Mother Stroke Father Arthritis Father Colon cancer Sister Breast cancer Sister Social History Socioeconomic History Marital status: Spouse name: Not on file Number of children: Not on file Years of education: Not on file Highest education level: Not on file Occupational History Not on file Tobacco Use Smoking status: Former Current packs/day: 0.00 Average packs/day: 1 pack/day for 34.0 years (34.0 ttl pk-yrs) Types: Cigarettes Start date: 08/08/1964 Quit date: 1998 Years since quittin.6 Smokeless tobacco: Never Vaping Use Vaping status: Never Used Substance and Sexual Activity Alcohol use: Yes Comment: not very often Drug use: No Sexual activity: Not Currently Partners: Female control/protection: None Other Topics Concern Caffeine Use Yes Comment: VERY LITTLE Social History Narrative Not on file Social Drivers of Health Financial Resource Strain: Low Risk (02/08/2025) Received from [facility] Overall Financial Resource Strain (CARDIA) Difficulty of Paying Living Expenses: Not hard at all Food Insecurity: No Food Insecurity (03/18/2025) Hunger Screening Food Insecurity - Worry: Never True Food Insecurity - Inability: Never True Transportation Needs: No Transportation Needs (02/08/2025) Received from [facility] PRAPARE - Transportation Lack of Transportation (Medical): No Lack of Transportation (Non-Medical): No Physical Activity: Inactive (02/08/2025) Received from [facility] Exercise Vital Sign Days of Exercise per Week: 0 days Minutes of Exercise per Session: 0 min Stress: No Stress Concern Present (02/08/2025) Received from [facility] [employer] - Occupational Stress Questionnaire Feeling of Stress : Only a little Social Connections: Socially Integrated (02/08/2025) Received from [facility] Social Connection and Isolation Panel [NHANES] Frequency of Communication with Friends and Family: Once a week Frequency of Social Gatherings with Friends and Family: Twice a week Attends Yarsani Services: More than 4 times per year Active Member of Clubs or Organizations: Yes Attends Club or Organization Meetings: More than 4 times per year Marital Status: Interpersonal Safety: Not At Risk (02/08/2025) Received from [facility] Humiliation, Afraid, Rape, and Kick questionnaire Fear of Current or Ex-Partner: No Emotionally Abused: No Physically Abused: No Sexually Abused: No Housing Instability: Low Risk (02/08/2025) Received from [facility] Housing Stability Vital Sign Unable to Pay for Housing in the Last Year: No Number of Times Moved in the Last Year: 0 Homeless in the Last Year: No Review of Systems Review of Systems Constitutional: Negative. HENT: Positive for hearing loss. Eyes: Positive for blurred vision. Cardiovascular: Negative. Respiratory: Negative. Endocrine: Negative. Hematologic/Lymphatic: Bruises/bleeds easily. Skin: Negative. Musculoskeletal: Positive for joint swelling. Gastrointestinal: Negative. Genitourinary: Negative. Neurological: Positive for headaches, loss of balance and numbness. Psychiatric/Behavioral: Negative. Allergic/Immunologic: Negative. Vascular: Negative. CARDIOVASCULAR: Please review HPI. Physical Examination General appearance: Alert, oriented and cooperative. In no acute distress. Respiratory: Clear to auscultation bilaterally, no use of accessory muscles. Cardiovascular: RRR with normal S1 and S2 with no murmurs. Gastrointestinal: Soft, non-tender. Bowel sounds normal. Musculoskeletal: 2+ bilateral lower extremity edema Neurologic: Oriented to time, person and place, affect appropriate. No focal/major motor defects noted. Psychiatric: Appropriate mood, memory and judgement. VITAL SIGNS: BP 134/72 Pulse 75 Ht 185.4 cm (6' 1 ) Wt 93.9 kg (207 lb) SpO2 93% BMI 27.31 kg/m No orders of the defined types were placed in this encounter. There are no discontinued medications. IMPRESSIONS/PLAN There are no diagnoses linked to this encounter. longstanding persistent atrial fibrillation with cryo PVI, RFA of the RS PV August 2022. CHADS-VASc 3. Mild left atrial enlargement Chronic diastolic heart failure, mild exacerbation with 2+ bilateral lower extremity edema Low risk SPECT MPI in 2020 Essential hypertension Hyperthyroidism on methimazole Meniere disease Lower GI bleed due to hemorrhoids with acute blood loss anemia most recent hemoglobin 12.5 grams/deciliter Dementia Balance issues Patient has a CHADS-VASc score of 3 and a has bled score of 3 which puts him at high-risk of bleeding, left atrial appendage occlusion device procedure is appropriate and I agree with proceeding with Watchman. Lasix 20 mg daily for 2 days and as needed for bilateral lower extremity edema - GABRIELLE ALVARADO MD 03/18/25 11:02 AM ' TODAYS ORDERS No orders of the defined types were placed in this encounter. FOLLOW UP No follow-ups on file. PCP: Mariela Rashid MD Referring Physician: Mariela Rashid MD [address] [place] [address] documented in this encounter [facility] 03-12-2025 History of Present illness Narrative Skin Check Location: Patient requests a skin examination from the waist up, A full body skin exam was offered, patient declined Dermatologic history: history of Basal Cell Carcinoma Last visit: Last skin check 20 years ago, last office visit new patient New patient, referred by Mariela Rashid MD All pertinent medical history, medications, and allergies were reviewed. General Exam: alert, oriented to person, place, and time, normal affect, well appearing Accompanied by spouse A complete skin exam was offered, pt declined. Areas not examined despite medical recommendation: From the waist down Scalp, Examined , exam limited by hair Head, Face Examined Neck Examined Chest Examined Back Examined Abdomen Examined Right arm Examined Left arm Examined Hands Examined Digits,nails: Examined Lymphatics: Not examined Skin Exam 1. NEOPLASM OF UNSPECIFIED BEHAVIOR OF BONE, SOFT TISSUE, AND SKIN (3) Left Upper Arm - Anterior Mar-Mac papule Lesion biopsy Type of biopsy: tangential Informed consent: discussed and consent obtained Informed consent comment: The risks and benefits of the biopsy were discussed. Risks include but are not limited to bleeding, infection, scarring, pain, and nerve damage. An opportunity to ask questions prior to the procedure was permitted and all questions were answered. Patient was prepped and draped in usual sterile fashion: area cleansed with alcohol. Anesthesia: the lesion was anesthetized in a standard fashion Anesthetic: 1% lidocaine w/ epinephrine 1-100,000 buffered w/ 8.4% NaHCO3 Instrument used: DermaBlade Hemostasis achieved with: electrodesiccation Outcome: patient tolerated procedure well Outcome comment: The specimen was placed in a prelabeled formalin container to be sent for pathology Post-procedure details: sterile dressing applied and wound care instructions given Post-procedure details comment: Emphasized need to contact clinic for any signs of infection, uncontrollable bleeding, or complications. Dressing type: bandage Additional details: Photo taken Amount of lidocaine used: 1cc Specimen A - Dermatopathology exam Differential Diagnosis: BCC vs MM Check Margins: No Size of lesion: Left Abdomen Lateral Irregularly pigmented papule Lesion biopsy Type of biopsy: tangential Informed consent: discussed and consent obtained Informed consent comment: The risks and benefits of the biopsy were discussed. Risks include but are not limited to bleeding, infection, scarring, pain, and nerve damage. An opportunity to ask questions prior to the procedure was permitted and all questions were answered. Patient was prepped and draped in usual sterile fashion: area cleansed with alcohol. Anesthesia: the lesion was anesthetized in a standard fashion Anesthetic: 1% lidocaine w/ epinephrine 1-100,000 buffered w/ 8.4% NaHCO3 Instrument used: DermaBlade Hemostasis achieved with: electrodesiccation Outcome: patient tolerated procedure well Outcome comment: The specimen was placed in a prelabeled formalin container to be sent for pathology Post-procedure details: sterile dressing applied and wound care instructions given Post-procedure details comment: Emphasized need to contact clinic for any signs of infection, uncontrollable bleeding, or complications. Dressing type: bandage Additional details: Photo taken Amount of lidocaine used: 1cc Specimen B - Dermatopathology exam Differential Diagnosis: Dysplastic Nevus vs other Check Margins: No Size of lesion: Left Abdomen Medial Irregularly pigmented papule Lesion biopsy Type of biopsy: tangential Informed consent: discussed and consent obtained Informed consent comment: The risks and benefits of the biopsy were discussed. Risks include but are not limited to bleeding, infection, scarring, pain, and nerve damage. An opportunity to ask questions prior to the procedure was permitted and all questions were answered. Patient was prepped and draped in usual sterile fashion: area cleansed with alcohol. Anesthesia: the lesion was anesthetized in a standard fashion Anesthetic: 1% lidocaine w/ epinephrine 1-100,000 buffered w/ 8.4% NaHCO3 Instrument used: DermaBlade Hemostasis achieved with: electrodesiccation Outcome: patient tolerated procedure well Outcome comment: The specimen was placed in a prelabeled formalin container to be sent for pathology Post-procedure details: sterile dressing applied and wound care instructions given Post-procedure details comment: Emphasized need to contact clinic for any signs of infection, uncontrollable bleeding, or complications. Dressing type: bandage Additional details: Photo taken Amount of lidocaine used: 1cc Specimen C - Dermatopathology exam Differential Diagnosis: Dysplastic Nevus vs other Check Margins: No Size of lesion: 2. ACTINIC KERATOSIS (2) Dorsum of Nose, Right Parotid Area Erythematous scaly papules Patient was counseled regarding these sun-induced growths that can develop into squamous cell carcinoma if left untreated. Discussed treatment with cryotherapy. It was emphasized that any treated lesions that fail to resolve should be re-evaluated. Cryotherapy performed today; see procedure note Diagnosis: Actinic keratosis Indication: Precancerous Location: see skin exam Consent: Verbal consent was obtained and risks were discussed, including, but not limited to risks of scarring, darker or sexual assault counselor pigmentary changes, recurrence, incomplete removal and infection. Method: Liquid nitrogen was used to treat the lesion(s) with two 5-10 second freeze-thaw cycles. Number of lesions treated: 2 Post-procedure instructions: Instructions were given orally and in writing. The office will be contacted if the lesion fails to resolve despite treatment, or if a side effect develops such as abnormal crusting, scabbing, redness or tenderness Cryotherapy, skin lesion - Dorsum of Nose, Right Parotid Area 3. CAPILLARY ANGIOMA Generalized Scattered yeboah-red papule(s). The patient was informed that angiomas are benign growths on the the skin. No treatment is necessary. 4. LENTIGINES Generalized Scattered osborn macules in sun-exposed areas. The patient was informed that lentigines are benign pigmented lesions that occur on sun-exposed and sun-damaged skin. No treatment is necessary. Recommended regular use of broad spectrum sunscreen SPF 30 or higher 5. MELANOCYTIC NEVUS OF TRUNK Generalized Scattered benign appearing, regular brown to light brown melanocytic papules and macules with similar morphology Counseled regarding these benign growths. Rarely, a nevus can develop into malignant melanoma, so any changing nevi should be promptly re-evaluated. 6. SEBORRHEIC KERATOSIS Generalized Stuck on verrucous, osborn-brown papules and plaques. Patient was counseled regarding these benign growths. Removal is normally not necessary, but they may be removed if they are symptomatic or for cosmetic reasons. 7. EIC (EPIDERMAL INCLUSION CYST) Left Sabianism 2.0 x 1.6 cm erythematous, subcutaneous nodule Patient was counseled regarding cysts. Although benign, cysts often slowly enlarge and can occasionally become inflamed. Discussed the only way to definitively diagnose the lesion would be to have it removed and tested. Discussed treatment options including observation vs. excision. Patient elected for excision. Reviewed procedure and what to expect. Patient has medicare and was scheduled for procedure. Next Visit: 6 months documented in this encounter [facility] 02-27-2025 History of Present illness Narrative Singh Bowman is a 80 y.o. male No ref. provider found presents with chief complaint of No chief complaint on file. HPI: IM : 02/2025 Follow-up visit 02/27/2025 for lab on 02/2025 TSH 20 , free T4 0.67 ( 0.61-1.16), free T3 4.16 ( 2.5-3.9, He is on methimazole 10 mg once a day. I saw him with tele. IM : 09/2024 Follow-up visit 09/18/2024 for lab still hyper TSH 0.005, free T4 2.1 ( 0.82-1.77), free T3 4.2 ( 2-4.4), TPO 11, TRAb less than 1.1, TG antibodies negative, he finished course of prednisone to for 2 weeks, still in metoprolol 25 HPI : 08/2024 New patient sent from Dr. Mariela Rashid for hyper thyroidism TSH 0.01, free [...] daily atorvastatin (LIPITOR) 20 mg, Oral, Daily dilTIAZem CD (CARDIZEM CD) 180 mg, Daily finasteride (PROSCAR) 5 mg, Oral, Daily methIMAzole (TAPAZOLE) 5 mg, Oral, Daily tamsulosin (FLOMAX) 0.4 mg, Oral, Daily ALLERGIES: No Known Allergies Past Medical History: Diagnosis Date Cholecystitis Colon polyps COVID-19 ETD (eustachian tube dysfunction) Gallbladder disorder History of medical problems herniated disk Meniere disease Peripheral angiopathy Sensorineural hearing loss of both ears Past Surgical History: Procedure Laterality Date APPENDECTOMY 1967 BACK SURGERY 1986 CARDIAC ELECTROPHYSIOLOGY STUDY AND ABLATION 08/11/2022 CARDIOVERSION 2021 CATARACT EXTRACTION, BILATERAL 2018 CHOLECYSTECTOMY 2014 COLONOSCOPY 12/19/2024 COLONOSCOPY W/ POLYPECTOMY 2013 HEMORRHOIDECTOMY 05/2019 REVIEW OF SYMPTOMS: 14 POINT OF SYSTEM REVIEWED AND NEGATIVE OBJECTIVE: Lab Results Component Value Date TSH <0.005 (L) 09/06/2024 Lab Results Component Value Date T4FREE 2.1 (H) 08/17/2024 Lab Results Component Value Date FREET3 4.2 09/06/2024 Visit Vitals Smoking Status Former ASSESSMENT AND PLAN: Assessment/Plan Diagnoses and all orders for this visit: Hyperthyroidism - methIMAzole (Tapazole) 5 MG tablet; Take 1 tablet (5 mg) by mouth Daily - T3, free; Future - T4, free; Future - TSH; Future - Hepatic function panel; Future Might related to thyroiditis, thyroid antibodies negative, currently he has overcorrected, I will cut his methimazole to 5 mg 6 days a week, new prescription sent. Multinodular goiter We will watch, no need for biopsy. Chronic atrial fibrillation (HCC) To follow with his supervisor mill [facility] Follow up in about 3 months (around 05/30/2025). documented in this encounter [facility] 02-25-2025 Hospital Discharge instructions Patient Education 02/25/2025 14:04:14 Benign Prostatic Hyperplasia Benign Prostatic Hyperplasia Benign [...] urethra. Follow these instructions at home: Take [id number] and prescription medicines only as told by [...] provider. Document Revised: 02/10/2022 Document Reviewed: 02/10/2022 [employer] Patient Education 2023 [employer]. Follow Up Care 11/16/2024 11:42:01 With:CARRIE PALMA, Medina Vazquez, URL Address: [facility] [address], [place] [address]- When: Unknown [facility] 02-25-2025 Note Patient Education Urology Benign Prostatic Hyperplasia Benign prostatic hyperplasia (BPH) [...] or symptoms? Symptoms of this condition include: ??? Getting up often during the night to urinate. ??? Needing to urinate frequently during the day. ??? Difficulty starting urine flow. ??? Decrease in size and strength of your urine stream. ??? Leaking (dribbling) after urinating. ??? Inability to pass urine. This needs immediate treatment. ??? Inability to completely empty your bladder. ??? Pain when you pass urine. This is more common if there is also an infection. ??? Urinary tract infection (UTI). How is this diagnosed? This condition is diagnosed based on your medical history, a physical exam, and your symptoms. Tests will also be done, such as: ??? A post-void bladder scan. This measures any amount of urine that may remain in your bladder after you finish urinating. ??? A digital rectal exam. In a rectal exam, your health care provider checks your prostate by putting a lubricated, gloved finger into your rectum to feel the back of your prostate gland. This exam detects the size of your gland and any abnormal lumps or growths. ??? An exam of your urine (urinalysis). ??? A prostate specific antigen (PSA) screening. This is a blood test used to screen for prostate cancer. ??? An ultrasound. This test uses sound waves [...] severity of your condition. Treatment may include: ??? Observation and yearly exams. This may be the only treatment needed if your condition and symptoms are mild. ??? Medicines to relieve your symptoms, including: ? Medicines to shrink the prostate. ? Medicines to relax the muscle of the prostate. ??? Surgery in severe cases. Surgery may include: ? Prostatectomy. In this procedure, the prostate tissue is removed completely through an open incision or with a laparoscope or robotics. ? Transurethral resection of the prostate (TURP). In this procedure, a tool is inserted through the opening at the tip of the penis (urethra). It is used to cut away tissue of the inner core of the prostate. The pieces are removed through the same opening of the penis. This removes the blockage. ? Transurethral incision (TUIP). In this procedure, small cuts are made in the prostate. This lessens the prostate's pressure on the urethra. ? Transurethral microwave thermotherapy (TUMT). This procedure uses microwaves to create heat. The heat destroys and removes a small amount of prostate tissue. ? Transurethral needle ablation (TUNA). This procedure uses radio frequencies to destroy and remove a small amount of prostate tissue. ? Interstitial laser coagulation (ILC). This procedure uses a laser to destroy and remove a small amount of prostate tissue. ? Transurethral electrovaporization (TUVP). This procedure uses electrodes to destroy and remove a small amount of prostate tissue. ? Prostatic urethral lift. This procedure inserts an implant to push the lobes of the prostate away from the urethra. Follow these instructions at home: ??? Take vlag-taf-gwtdjac and prescription medicines only as told by your health care provider. ??? Monitor your symptoms for any changes. Contact your health care provider with any changes. ??? Avoid drinking large amounts of liquid before going to bed or out in public. ??? Avoid or reduce how much caffeine or alcohol you drink. ??? Give yourself time when you urinate. ??? Keep all follow-up visits. This is important. Contact a health care provider if: ??? You have unexplained back pain. ??? Your symptoms do not get (more content not included)... [facility] 02-18-2025 Miscellaneous Notes Images from the original note were not included. [facility]: Watchman Procedures YOUR PROCEDURE: Watchman YOUR DOCTOR: Dr. Emiliano Alaniz DATE/TIME OF YOUR PROCEDURE: 05/02 @ 1:30 pm - ARRIVE AT 12 pm DATES/TIMES ARE SUBJECT TO CHANGE, PLEASE SEE BELOW LOCATION OF YOUR PROCEDURE: [facility] [address] [place] [address] Arrive to Entrance C, check in at the registration desk Please see the map on the last page for directions PRE OP REQUIREMENTS BELOW MUST BE COMPLETED PRIOR TO YOUR PROCEDURE OR IT MAY RESULT IN A DELAY OR CANCELLATION OF YOUR PROCEDURE PRE OP TESTING: NONE PRE OP LABS: You MUST complete your labs before your procedure. Draw pre op labs on or after 04/25 at any [facility], no paper orders are required, your orders are already in the system. NO FASTING REQUIRED FOR WARFARIN/COUMADIN PATIENTS: N/A FASTING: NO FOOD OR DRINK AFTER MIDNIGHT, night before your procedure. MEDICATIONS: HOLD the following medications before your procedure: Eliquis DO NOT TAKE NIGHT BEFORE OR MORNING OF If you were instructed to hold medications, you may take all your other medications as prescribed with sips of water. We recommend holding any over the counter supplements or vitamins the morning of your procedure. If you are started on any of these GLP-1/SGLT-2 medications after your procedure has been scheduled, call our office IMMEDIATELY: Jardiance (empaglifloxin), Farxiga (dapaglifloxin), Invokana (canaglifloxin), Steglatro (ertuglifloxin), Brenzavvy (bexaglifloxin), Inpefa (sotagliflozin), Byetta/Bydureon (exenatide), Victoza/saxenda (liraglutide), Soliqua (lixisenatide), Trulicity (dulaglutide), Ozempic, Wegovy, Rybelsus (semaglutide), Mounjaro, Zepbound (tirzepatide) Second Decision Making Appointment It is required by your insurance and protocol for the Watchman Procedure to have a second opinion by a physician that agrees to the Watchman procedure. This must be completed by a physician, that does NOT implant Watchmans before your Watchman procedure. If this is not completed, your Watchman procedure will be cancelled You need to schedule this appointment with a physician. Please call [phone] and ask for scheduling If you need to reschedule your appointment please call [phone] and ask for scheduling IMPORTANT INFORMATION PLEASE BE ADVISED! Dates and times of procedures are subject to change, at times due to emergencies with the hospital or physician. You will be notified as soon as possible if/when these changes may occur by the nurse at the office The automated [employer] messages about your procedure can be incorrect. Please do NOT follow any automated [employer] messages as these can provide incorrect information about your procedure time, arrival time or pre op instructions. Please follow the instructions provided by the nurse in the office at the time of your visit, in the mail or through a separate [employer] message labeled pre-op instructions . If you are unsure, please call the EP Surgery office [phone] WHAT TO BRING WITH YOU TO THE HOSPITAL: Bring your photo ID, insurance card and a current list of all your medications (including over the counter medications, vitamins and supplements) There may be a chance you will have to stay overnight. Bring with you an overnight bag with a change of clothes, ALL of your prescription medications in their original containers from the pharmacy and any medical equipment you may need during your stay. You MUST have a shuttle van driver take you home after your procedure. You MAY NOT use a driving service (Taxi, Uber, Lyft, etc) and must be driven home by a family member or friend. You may have up to TWO visitors for your procedure CALL THE EP SURGERY OFFICE AT [phone] IMMEDIATELY IF: You have any illness, infection or tested positive for COVID in the last 5 days. You are unable to come to your procedure and need to cancel or reschedule, please provide at least a 24 business hour notice Follow your blood thinner instructions as provided above. You may have your procedure cancelled or delayed if you do not follow these instructions, if you are unsure call the EP surgery office and spoke with the nurse YOU HAVE STARTED ANY NEW MEDICATIONS AFTER YOUR PROCEDURE HAS BEEN SCHEDULED If you had an allergy to contrast dye and it was NOT addressed during your office visit. You did not complete your required pre op testing, pre op labs or follow the medication instructions as listed above. This may result in a delay or cancellation of your procedure POST OP - AFTER YOUR PROCEDURE: You MUST have a shuttle van driver to drive you home after your procedure, even if you stay overnight You will have an incision(s), follow the instructions provided by the hospital at your discharge on how to properly care for your incision and when to remove your dressing. If you are unsure or were not instructed, ask the post op staff at the hospital or call the [facility] Cardiology office at [phone], option 7, Nurses Inspect your incisions every day. Call immediately if you have any swelling, redness, bumps, drainage, your skin around your incision feels warm/hot or if you have a fever. Call your doctor if you have any signs of illness (fever 100 degrees or higher, chills, shivering, nausea, vomiting, discharge from your incision. If you have any symptoms of immediate concern, call 911, go the nearest emergency room or call our office at any time. ACTIVITY RESTRICTIONS: NO DRIVING FOR 24 HOURS AFTER YOUR PROCEDURE Do not lift anything heavier than 10 pounds or do any strenuous activity for a minimum of 1 week. Avoid sitting more than 1 consecutive hour the first 3 days. If traveling, stop and walk for 5 minutes every hour. BLOOD THINNER: You must continue to take your blood thinner (Coumadin/Warfarin, Eliquis, Xarelto, Pradaxa, Savaysa), if you are taking one, until you are told by your physician, when you can safely stop it (see PARTH below). Call the office if you have any questions. You may experience some mild to moderate bruising to your incision area after your procedure. You may also notice a small lump or bump, this is from the closure devices and/or manual pressure to stop the bleeding after the procedure is complete. Bruising and lump/bumps are normal however if you notice any redness, swelling, pain, drainage or the bruising is worsening please call the office at any time at [phone]. 45 DAY POST OP PARTH/CT: You will have a Transesophageal Echocardiogram (PARTH) or CT (cat scan) of your heart 45 days after the implant of your Watchman to assess its placement. Blood thinners will be discussed after your PARTH/CT is completed. Do not stop your blood thinner until you are advised it is safe to do so. Dentist Visits: The 1st 6 months after the procedure, you will need antibiotics before you have dental work. FOLLOW UP APPOINTMENT: You will have follow up appointments after your procedure. You will have at least a 1-2 weeks follow up to assess your incision and may have additional follow ups post op. You will have these appointments scheduled at your office visit or with the nurse when you are scheduled. If any of your follow up appointments have NOT been scheduled, call [phone] and select the option for EP scheduling documented in this encounter [facility] 02-18-2025 Telephone encounter Note Images from the original note were not included. [facility]: Watchman Procedures YOUR PROCEDURE: Watchman YOUR DOCTOR: Dr. Emiliano Alaniz DATE/TIME OF YOUR PROCEDURE: 05/02 @ 1:30 pm - ARRIVE AT 12 pm DATES/TIMES ARE SUBJECT TO CHANGE, PLEASE SEE BELOW LOCATION OF YOUR PROCEDURE: [address] [place] [address] Arrive to Entrance C, check in at the registration desk Please see the map on the last page for directions PRE OP REQUIREMENTS BELOW MUST BE COMPLETED PRIOR TO YOUR PROCEDURE OR IT MAY RESULT IN A DELAY OR CANCELLATION OF YOUR PROCEDURE PRE OP TESTING: NONE PRE OP LABS: You MUST complete your labs before your procedure. Draw pre op labs on or after 04/25 at any [facility], no paper orders are required, your orders are already in the system. NO FASTING REQUIRED FOR WARFARIN/COUMADIN PATIENTS: N/A FASTING: NO FOOD OR DRINK AFTER MIDNIGHT, night before your procedure. MEDICATIONS: HOLD the following medications before your procedure: Eliquis DO NOT TAKE NIGHT BEFORE OR MORNING OF If you were instructed to hold medications, you may take all your other medications as prescribed with sips of water. We recommend holding any over the counter supplements or vitamins the morning of your procedure. If you are started on any of these GLP-1/SGLT-2 medications after your procedure has been scheduled, call our office IMMEDIATELY: Jardiance (empaglifloxin), Farxiga (dapaglifloxin), Invokana (canaglifloxin), Steglatro (ertuglifloxin), Brenzavvy (bexaglifloxin), Inpefa (sotagliflozin), Byetta/Bydureon (exenatide), Victoza/saxenda (liraglutide), Soliqua (lixisenatide), Trulicity (dulaglutide), Ozempic, Wegovy, Rybelsus (semaglutide), Mounjaro, Zepbound (tirzepatide) Second Decision Making Appointment It is required by your insurance and protocol for the Watchman Procedure to have a second opinion by a physician that agrees to the Watchman procedure. This must be completed by a physician, that does NOT implant Watchmans before your Watchman procedure. If this is not completed, your Watchman procedure will be cancelled You need to schedule this appointment with a physician. Please call [phone] and ask for scheduling If you need to reschedule your appointment please call [phone] and ask for scheduling IMPORTANT INFORMATION PLEASE BE ADVISED! Dates and times of procedures are subject to change, at times due to emergencies with the hospital or physician. You will be notified as soon as possible if/when these changes may occur by the nurse at the office The automated [employer] messages about your procedure can be incorrect. Please do NOT follow any automated MyChart messages as these can provide incorrect information about your procedure time, arrival time or pre op instructions. Please follow the instructions provided by the nurse in the office at the time of your visit, in the mail or through a separate [employer] message labeled pre-op instructions . If you are unsure, please call the Surgery office [phone] WHAT TO BRING WITH YOU TO THE HOSPITAL: Bring your photo ID, insurance card and a current list of all your medications (including over the counter medications, vitamins and supplements) There may be a chance you will have to stay overnight. Bring with you an overnight bag with a change of clothes, ALL of your prescription medications in their original containers from the pharmacy and any medical equipment you may need during your stay. You MUST have a shuttle van driver take you home after your procedure. You MAY NOT use a driving service (Taxi, Uber, Lyft, etc) and must be driven home by a family member or friend. You may have up to TWO visitors for your procedure CALL THE SURGERY OFFICE AT [phone] IMMEDIATELY IF: You have any illness, infection or tested positive for COVID in the last 5 days. You are unable to come to your procedure and need to cancel or reschedule, please provide at least a 24 business hour notice Follow your blood thinner instructions as provided above. You may have your procedure cancelled or delayed if you do not follow these instructions, if you are unsure call the surgery office and spoke with the nurse YOU HAVE STARTED ANY NEW MEDICATIONS AFTER YOUR PROCEDURE HAS BEEN SCHEDULED If you had an allergy to contrast dye and it was NOT addressed during your office visit. You did not complete your required pre op testing, pre op labs or follow the medication instructions as listed above. This may result in a delay or cancellation of your procedure POST OP - AFTER YOUR PROCEDURE: You MUST have a shuttle van driver to drive you home after your procedure, even if you stay overnight You will have an incision(s), follow the instructions provided by the hospital at your discharge on how to properly care for your incision and when to remove your dressing. If you are unsure or were not instructed, ask the post op staff at the hospital or call the [facility] Cardiology office at [phone], option 7, Nurses Inspect your incisions every day. Call immediately if you have any swelling, redness, bumps, drainage, your skin around your incision feels warm/hot or if you have a fever. Call your doctor if you have any signs of illness (fever 100 degrees or higher, chills, shivering, nausea, vomiting, discharge from your incision. If you have any symptoms of immediate concern, call [phone], go the nearest emergency room or call our office at any time. ACTIVITY RESTRICTIONS: NO DRIVING FOR 24 HOURS AFTER YOUR PROCEDURE Do not lift anything heavier than 10 pounds or do any strenuous activity for a minimum of 1 week. Avoid sitting more than 1 consecutive hour the first 3 days. If traveling, stop and walk for 5 minutes every hour. BLOOD THINNER: You must continue to take your blood thinner (Coumadin/Warfarin, Eliquis, Xarelto, Pradaxa, Savaysa), if you are taking one, until you are told by your physician, when you can safely stop it (see PARTH below). Call the office if you have any questions. You may experience some mild to moderate bruising to your incision area after your procedure. You may also notice a small lump or bump, this is from the closure devices and/or manual pressure to stop the bleeding after the procedure is complete. Bruising and lump/bumps are normal however if you notice any redness, swelling, pain, drainage or the bruising is worsening please call the office at any time at [phone]. 45 DAY POST OP PARTH/CT: You will have a Transesophageal Echocardiogram (PARTH) or CT (cat scan) of your heart 45 days after the implant of your Watchman to assess its placement. Blood thinners will be discussed after your PARTH/CT is completed. Do not stop your blood thinner until you are advised it is safe to do so. Dentist Visits: The 1st 6 months after the procedure, you will need antibiotics before you have dental work. FOLLOW UP APPOINTMENT: You will have follow up appointments after your procedure. You will have at least a 1-2 weeks follow up to assess your incision and may have additional follow ups post op. You will have these appointments scheduled at your office visit or with the nurse when you are scheduled. If any of your follow up appointments have NOT been scheduled, call [phone] and select the option for EP scheduling [facility] 02-13-2025 Miscellaneous Notes EP surgery schedulers, please arrange Watchman implantation w/ me next available. MAC sedation, NPO after MN, clears 6h prior, routine preop labs. Hold apixaban 2 doses, no other medications held. No need for PARTH/CT (CT previously done in 2021). Will need SDM from non-implanting physician. Would you like an cloth finishing range tender or ICE ICE only, thanks! documented in this encounter [facility] 02-13-2025 Telephone encounter Note EP surgery schedulers, please arrange Watchman implantation w/ me next available. MAC sedation, NPO after MN, clears 6h prior, routine preop labs. Hold apixaban 2 doses, no other medications held. No need for PARTH/CT (CT previously done in 2021). Will need SDM from non-implanting physician. [facility] 02-13-2025 Telephone encounter Note Would you like an cloth finishing range tender or ICE [facility] 02-13-2025 Telephone encounter Note ICE only, thanks! [facility] 02-13-2025 History of Present illness Narrative Singh Danial Bowman Date of visit: 02/13/2025 Date of : 1945 Age: 80 y.o. Patient Active Problem List Diagnosis Rectal bleeding Hx of adenomatous colonic polyps Adenomatous polyp of transverse colon Paroxysmal atrial fibrillation (CMS-HCC) Mixed hyperlipidemia Shortness of breath Longstanding persistent atrial fibrillation (CMS-HCC) Pre-op evaluation No Known Allergies Current Outpatient Medications Medication Sig Dispense Refill apixaban (ELIQUIS) 5 mg tablet Take 1 tablet (5 mg total) by mouth in the morning and 1 tablet (5 mg total) before bedtime. TAKE 1 TABLET BY MOUTH TWICE A DAY. 60 tablet 8 atorvastatin (LIPITOR) 20 mg tablet Take 1 tablet (20 mg total) by mouth in the morning. dilTIAZem XR (DILACOR XR) 180 MG 24 hr capsule Take 1 capsule (180 mg total) by mouth in the morning. 90 capsule 3 finasteride (PROSCAR) 5 mg tablet Take 1 tablet (5 mg total) by mouth in the morning. methIMAzole (TAPAZOLE) 10 mg tablet Take 1 tablet (10 mg total) by mouth in the morning and 1 tablet (10 mg total) before bedtime. tamsulosin (FLOMAX) 0.4 mg capsule Take 1 capsule (0.4 mg total) by mouth nightly. methazolAMIDE (NEPTAZANE) 50 mg tablet Take 1 tablet (50 mg total) by mouth in the morning and 1 tablet (50 mg total) before bedtime. (Patient not taking: Reported on 02/13/2025) No current facility-administered medications for this visit. Chief Complaint Patient presents with Follow-up EST PT F/U 3 MS L/S JZL SCHED W/PT, DISCUSS WATCHMAN D/T RECENT BLEERDING ISSUES Medication Problem Pt has not been currently taking Atorvastatin, Pt saw PCP on 02/12/2025, PCP stated that pt should continue medication pt's would like to discuss if medication is necessary, pt's and son decided to discontinue Atorvastatin. Pt has not been on medication since October of 2024. History of Present Illness Singh Bwoman is a 80-year-old with history of dementia, many years disease, hyperthyroidism, hypertension, longstanding persistent atrial fibrillation with cryo PVI, RFA of the RS PV 2022. He did have recurrence of arrhythmia in the setting of hyperthyroidism in November however spontaneously converted. He did have some rectal bleeding. He has been diagnosed with hemorrhoids He is here today for follow-up. He is accompanied by his . reports previously they removed hemorrhoids, however this time they chose to leave them. He has not had any further bleeding for now. Patient has been doing well overall. No significant symptoms today. They are following with endocrinology. He was losing weight with his thyroid being abnormal, however she does report he has gained some of that weight back. EKG today in office shows sinus rhythm. Past Medical History: Diagnosis Date Angina pectoris Arthritis 2009 Atrial fibrillation ([facility]) Back pain Benign prostatic hyperplasia Cataracts, bilateral Colon polyps GERD (gastroesophageal reflux disease) Hemorrhoids HL (hearing loss) 2021 Hyperlipidemia Hypertension 2017 Meniere disease 06/2022 Neuromuscular disorder ([facility]) 2009 Peptic ulceration 1979 Peripheral angiopathy in diseases classified elsewhere Peripheral neuropathy Varicella 1952 Visual impairment 1965 No data recorded No data recorded No data recorded Past Surgical History: Procedure Laterality Date Afib Ablation with PARTH-NEL, CRYO, ICE N/A 08/11/2022 Performed by Emiliano Alaniz MD at [facility] (EP) APPENDECTOMY 1967 BACK SURGERY 1985 CARDIAC SURGERY 08/11/2022 Ablation for Afib CHOLECYSTECTOMY 09/26/2013 COLONOSCOPY 08/14/2010 COLONOSCOPY 10/16/2012 COLONOSCOPY 10/20/2015 COLONOSCOPY N/A 08/31/2019 Performed by Jed Worthington MD at [facility] COLONOSCOPY DIAGNOSTIC / SCREENING N/A 12/19/2024 Performed by Ishaan Zaman MD at [facility] COLONOSCOPY DIAGNOSTIC / SCREENING N/A 10/14/2023 Performed by Ishaan Zaman MD at [facility] EYE SURGERY 2018 PHACO KELMAN I IMPLANT INTRAOCULAR LENS Right 05/09/2018 Performed by Aracelis Auguste MD at [facility] PHACO KELMAN I IMPLANT INTRAOCULAR LENS Left 04/25/2018 Performed by Aracelis Auguste MD at [facility] SKIN BIOPSY 2008 SPINE SURGERY 1985 TONSILLECTOMY 1952 Family History Problem Relation Age of Onset Stroke Mother Heart disease Mother Arthritis Mother Stroke Father Arthritis Father Colon cancer Sister Breast cancer Sister Social History Socioeconomic History Marital status: Spouse name: Not on file Number of children: Not on file Years of education: Not on file Highest education level: Not on file Occupational History Not on file Tobacco Use Smoking status: Former Current packs/day: 0.00 Average packs/day: 1 pack/day for 34.0 years (34.0 ttl pk-yrs) Types: Cigarettes Start date: 08/08/1964 Quit date: 1998 Years since quittin.5 Smokeless tobacco: Never Vaping Use Vaping status: Never Used Substance and Sexual Activity Alcohol use: Yes Comment: not very often Drug use: No Sexual activity: Not Currently Partners: Female control/protection: None Other Topics Concern Caffeine Use Yes Comment: VERY LITTLE Social History Narrative Not on file Social Drivers of Health Financial Resource Strain: Low Risk (02/08/2025) Received from [facility] Overall Financial Resource Strain (CARDIA) Difficulty of Paying Living Expenses: Not hard at all Food Insecurity: No Food Insecurity (02/08/2025) Received from [facility] Hunger Vital Sign Worried About Running Out of Food in the Last Year: Never true Ran Out of Food in the Last Year: Never true Transportation Needs: No Transportation Needs (02/08/2025) Received from [facility] PRAPARE - Transportation Lack of Transportation (Medical): No Lack of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 0 days Minutes of Exercise per Session: 0 min Stress: No Stress Concern Present (11/29/2024) Received from [facility] [place] of Occupational Health - Occupational Stress Questionnaire Feeling of Stress : Not at all Social Connections: Socially Integrated (11/29/2024) Received from [facility] Social Connection and Isolation Panel [NHANES] Frequency of Communication with Friends and Family: Twice a week Frequency of Social Gatherings with Friends and Family: Twice a week Attends Yarsani Services: More than 4 times per year Active Member of Clubs or Organizations: Yes Attends Club or Organization Meetings: Never Marital Status: Interpersonal Safety: Not At Risk (11/29/2024) Received from [facility] Humiliation, Afraid, Rape, and Kick questionnaire Fear of Current or Ex-Partner: No Emotionally Abused: No Physically Abused: No Sexually Abused: No Housing Instability: Low Risk (11/29/2024) Received from [facility] Housing Stability Vital Sign Unable to Pay for Housing in the Last Year: No Number of Times Moved in the Last Year: 0 Homeless in the Last Year: No Family History Problem Relation Age of Onset Stroke Mother Heart disease Mother Arthritis Mother Stroke Father Arthritis Father Colon cancer Sister Breast cancer Sister Objective Physical Exam Constitutional: General: He is not in acute distress. Appearance: Normal appearance. He is not ill-appearing. HENT: Head: Normocephalic and atraumatic. Mouth/Throat: Mouth: Mucous membranes are moist. Eyes: Pupils: Pupils are equal, round, and reactive to light. Cardiovascular: Rate and Rhythm: Normal rate. Pulmonary: Effort: Pulmonary effort is normal. No respiratory distress. Abdominal: General: There is no distension. Musculoskeletal: General: Normal range of motion. Skin: General: Skin is warm and dry. Neurological: Mental Status: He is alert and oriented to person, place, and time. Mental status is at baseline. Vital Signs: Blood pressure 149/78, pulse 74, height 185.4 cm (6' 1 ), weight 89.9 kg (198 lb 3.2 oz). Respiratory Source: No data recorded Admission Weight: Weight: 89.9 kg (198 lb 3.2 oz) Labs Lab Results Component Value Date WBC 7.0 11/30/2024 HGB 12.9 (L) 11/30/2024 HCT 38.1 (L) 11/30/2024 MCV 86 11/30/2024 PLT 259 11/30/2024 Lab Results Component Value Date GLU 154 (H) 11/30/2024 CALCIUM 8.7 11/30/2024 K 3.8 11/30/2024 CO2 23 11/30/2024 CL 108 11/30/2024 BUN 15 11/30/2024 CREATININE 1.24 (H) 11/30/2024 No results found for: AMYLASE No results found for: LIPASE Lab Results Component Value Date ALT 15 11/30/2024 AST 19 11/30/2024 ALKPHOS 187 (H) 11/30/2024 No results found for: INR , PROTIME Assessment Rectal bleeding Sessile serrated polyp with low-grade dysplasia on colonoscopy 2023, due for surveillance History of atrial fibrillation on Eliquis Plan Colonoscopy with possible biopsy and/or polypectomy. Risks, benefits, and alternatives discussed with patient. Patient verbalizes understanding and wishes to proceed. Evaluation included: Preparing to see the patient (e.g., review of tests) Obtaining and/or reviewing separately obtained history Performing a medically appropriate examination and/or evaluation Counseling and educating the patient/family/caregiver Referring and communicating with other health healthcare liaison Rectal bleeding [K62.5] PEDRO [place] [place] This note was created with the assistance of a speech recognition program. While intending to generate a timely document that accurately reflects the content of the visit, no guarantee can be provided that every grammatical or spelling mistake has been or will be identified or corrected. Thank you for your understanding. PEDRO [place] 12/06/24 1027 documented in this encounter [facility] 12-05-2024 History of Present illness Narrative Images from the original note were not included. Neuropsychology Cornelio Issa, PhD NEUROPSYCHOLOGICAL EVALUATION Singh Bowman is a 79 y.o. male referred for neuropsychological evaluation to assist with facilitating and informing medical differential diagnosis and clinical decision-making. The following information was obtained during an interview with the patient and family, as well as review of available records. PRESENTING PROBLEM: Cognitive concerns over the past 1+ years especially noticeable following recent UTI. Additionally, patient has experienced several medical complications over the past 4 months with associated severe physical decline. Patient denied noticing any cognitive changes. Family reported that he forgets names and places, has difficulty following instructions, asks the same questions, forgets his schedule, has become less engaging in large group settings, as well as fluctuating attention/concentration. Also described as mildly hard of hearing as well as poor balance. Remains independent in ADLs and household responsibilities. is in the process of taking over finances. sets up medication. Driving is currently on hold due to the combination of physical and cognitive concerns. Sleep concerns include hypersomnia, acting out and speaking during sleep, as well as snoring and gasping. No pain complaints. No prior neurological history. MRI of the brain did not identify any acute intracranial abnormalities that would account for the patient's symptoms but did show chronic white matter changes. 10/01/24 MoCA . Family neurological history includes dementia (mother and father). Denied any psychiatric history. No history of alcohol/substance abuse. Reformed smoker. [place] language Syriac. Completed high school education as well as 2 years of college coursework. 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 Resides with of 25 years. Has 3 children as well as one stepchild. MEDICAL HISTORY/MEDICATION: MEDICATIONS: Current Outpatient Medications Medication Instructions apixaban (Eliquis) 5 MG tablet 1 tablet, 2 times daily atorvastatin (LIPITOR) 20 mg, Oral, Daily finasteride (PROSCAR) 5 mg, Oral, Daily methIMAzole (TAPAZOLE) 10 mg, Oral, Daily tamsulosin (FLOMAX) 0.4 mg, Oral, Daily ASSESSMENT: Presented to appointment on time, alert, and Ox3. Rapport easily established. Good eye contact. Socially appropriate during conversation and testing. Mildly hard of hearing. Ambulated via cane. Purpose for current evaluation explained and patient agreed to participate. Overall appeared to put forth good effort. Vision/Visuoconstruction: Binocular near-point visual acuity 20/50. Visual aponte full to confrontation. Visuoconstruction 27th %ile. Nonverbal abstract reasoning 38th %ile. Copy of a complex geometric design >16th %ile. Motor/Speed of Processing: Right-handed. Planning Lead strength <1st %ile with right-hand, 3rd %ile with left. Speeded graphomotor transcoding 31st %ile. Attention/Working Memory: Auditory attention/working memory 12th %ile (5 digits forward, 3 digits backward, 4 digits during sequencing). Speeded visual scanning/attention 5th %ile. Speeded visual divided attention d/c. Speech/Language: Expressive speech fluent and absent of paraphasic errors. Comprehension adequate for current purposes. Single-word reading 16th %ile. Generative naming to phonemic cues 2nd %ile, 7th %ile to semantic cues. Confrontation naming 34th %ile. Verbal abstract reasoning 6th %ile. Learning and Memory: Learning of a word list 2nd %ile (2-3-4-5-6), delayed recall 7th %ile. Recognition discriminability 7th %ile. Forced-choice /16. Immediate recall for prose passages 6th %ile, delayed 12th %ile. Recognition 26-50th %ile. Immediate and delayed recall for a variety of geometric figures 24th %ile. Recognition 26-50th %ile. Executive Functioning: Novel problem-solving and cognitive flexibility >16th %ile, 2/6 categories completed in 64 sorts. Responding absent of significant perseveration. Emotional Functioning: Minimal depression. FINDINGS AND RECOMMENDATIONS: CONCLUSIONS: 1. Estimated low average to average pre-morbid intellectual functioning. 2. Preserved visual acuity without signs of visual field cut or neglect. 3. Severely deficient right-hand gross motor function, moderately deficient with left. 4. Minimal depression. OPINION: Current neuropsychological evaluation demonstrates variable struggles with memory as well as reduced verbal fluency and visual scanning/complex divided attention. Minimal psychiatric contribution. Overall findings and history are most consistent with mild cognitive impairment (MCI) exacerbated by likely untreated TC. RECOMMENDATIONS: Results and recommendations forwarded to treating physician for review during their next appointment. Patient encouraged to contact this office with any additional questions. No activity restrictions from a cognitive standpoint. PSG/HST to assess and treat the suspected underlying TC. Memory strategies: Regularly and frequently review information that must be remembered. Link new information in as many ways as possible to already known information. This strategy creates several avenues for remembering the information later. Utilize external memory sources such as lists, date books, calendars, and pocket-size recorders for information that must be remembered. A smartphone is a useful tool in consolidating all this information into one source. Active listening, such as repeating and summarizing information back to presenter when learning important information for future recall may be beneficial as opposed to simply passive listening. Establish a consistent structured routine. Regular physical activity for stress relief, improved cognitive efficiency, and optimal sleep. Attempt new hobbies and skills, keep learning. Proper nutritional intake, such as Mediterranean-style diet, while paying close attention to food sourcing. Neuropsychological re-evaluation in 12-18 months to monitor progression, or lack of, and update recommendations. Thank you for allowing me to participate in the care of this individual. Please contact me with any questions at [phone]. documented in this encounter [facility] 11-30-2024 History of Present illness Narrative Images from the original note were not included. Singh Bowman is a 79 y.o. male presents with chief complaint of Rectal Bleeding HPI: HPI History of Present Illness The patient presents for evaluation of rectal bleeding, hyperthyroidism, atrial fibrillation, and urinary tract infection. History is reported by another person in the presence of the patient. Rectal bleeding, described as bright red and copious, began on 11/28/2024, with 7 episodes of blood in the stool. A sensation of needing to defecate even when there is no stool present is reported. The bleeding is particularly severe during episodes of diarrhea. Blood has been observed on his underwear, and the bleeding seems to worsen when exerting pressure during bowel movements. No associated lightheadedness or dizziness is reported. The presence of 2 small polyps, which have since disappeared, is mentioned. He is currently on Eliquis, taking 1 tablet in the morning and another in the evening, but did not take his dose last night or this morning. A Transurethral Resection of the Prostate (TURP) procedure was performed, following which a severe infection developed. Although the infection has largely resolved, hematuria continues. Prior to the infection, he was in a significantly weakened state, necessitating testing for a potential urinary tract infection (UTI). He is currently under the care of Dr. Adams. Cognitive function appears to be improving, with a neuropsychological test scheduled for 12/05/2024. He is considering transitioning his care from Dr. Ortega to Dr. Adams, who also administers Botox treatments. Currently on methimazole for hyperthyroidism, under the care of Dr. Cross. Recent lab results indicate normal T3 and T4 levels, but persistently low TSH levels. Hyperthyroidism has led to weight loss and recurrent episodes of atrial fibrillation (A-Fib), managed by Dr. Bedoya, a supervisor mill at [facility]. Ablation therapy was performed in 2022, and a normal rhythm has been maintained for the past 2.5 weeks. A cardioversion was considered but deemed unnecessary due to his return to normal rhythm. He was previously on atorvastatin but discontinued it during his illness. PAST SURGICAL HISTORY: Transurethral Resection of the Prostate (TURP) - 2024 Ablation therapy - 2022 SUBJECTIVE: MEDICATIONS: Current Outpatient Medications Medication Instructions apixaban (Eliquis) 5 MG tablet 1 tablet, 2 times daily finasteride (PROSCAR) 5 mg, Oral, Daily methIMAzole (TAPAZOLE) 10 mg, Oral, Daily tamsulosin (FLOMAX) 0.4 mg, Oral, Daily ALLERGIES: No Known Allergies SURGICAL HISTORY: Past Surgical History: Procedure Laterality Date APPENDECTOMY 1967 BACK SURGERY 1986 CARDIAC ELECTROPHYSIOLOGY STUDY AND ABLATION 08/11/2022 CARDIOVERSION 2021 CATARACT EXTRACTION, BILATERAL 2018 CHOLECYSTECTOMY 2013 COLONOSCOPY W/ POLYPECTOMY 2013 HEMORRHOIDECTOMY 05/2019 FAMILY HISTORY: Family History Problem Relation Name Age of Onset Heart disease Mother Milka Stroke Mother Milka Coronary artery disease Mother Milka Alzheimer's disease Mother Milka Alcohol abuse Father Eulogio Hearing loss Father Eulogio Cancer Sister Rebecca Cancer Sister Rebecca SOCIAL HISTORY: Social History Tobacco Use Smoking status: Former Current packs/day: 0.00 Average packs/day: 1 pack/day for 34.0 years (34.0 ttl pk-yrs) Types: Cigarettes Start date: 08/08/1964 Quit date: 1998 Years since quittin.3 Smokeless tobacco: Never Substance Use Topics Alcohol use: Not Currently Drug use: Never Depression: Not at risk (08/17/2024) PHQ-2 PHQ-2 Score: 0 REVIEW OF SYMPTOMS: Review of Systems Respiratory: Negative. Cardiovascular: Negative. OBJECTIVE: Visit Vitals BP 118/62 (BP Location: Left arm, Patient Position: Sitting, BP Cuff Size: Large adult) Pulse 72 Resp 18 Ht 6' 2 Wt 186 lb SpO2 98% BMI 23.88 kg/m Smoking Status Former BSA 2.1 m Physical Exam Constitutional: Appearance: He is [...] Breath sounds: Normal breath sounds. No wheezing. Abdominal: General: Abdomen is flat. Palpations: Abdomen is soft. Genitourinary: Rectum: Normal. Comments: External hemorrhoids No palpable rectal mass , exam grossly neg for blood Musculoskeletal: General: No swelling or deformity. Cervical [...] Assessment/Plan Problem List Items Addressed This Visit Longstanding persistent atrial fibrillation ([facility]/HCC) Overview Stable managed by cardiology Mixed hyperlipidemia ([facility]) Relevant Medications atorvastatin (Lipitor) 20 MG tablet Moderate late onset Alzheimer's dementia ([facility]/HCC) Managed by neurology Hyperthyroidism ([facility]) - Primary Managed by endo Other Visit Diagnoses Paroxysmal atrial fibrillation ([facility]) Hematochezia Assessment & Plan 1. Rectal bleeding. - The etiology of the bleeding remains uncertain- The volume of internal bleeding is concerning due to its potential severity. Despite this, vital signs, including heart rate and blood pressure, are within normal limits. - A referral to the emergency department will be made for further evaluation and blood work to ensure safety over the weekend and to monitor for any rapid decrease in blood count. - Blood work will be drawn at the [facility] to assess blood count stability. 2. Hyperthyroidism. - T3 and T4 levels are normal, but TSH is still low, indicating ongoing hyperthyroidism. - This condition has contributed to weight loss and may have triggered atrial fibrillation. - He will continue to follow up with his band master for management. - Monitoring of thyroid function tests will continue. 3. Atrial fibrillation. - He has been in normal rhythm for the past 2-3 weeks after a recent episode of atrial fibrillation likely triggered by hyperthyroidism. - Cardioversion was considered but deemed unnecessary as he returned to normal rhythm. - He will continue to follow up with his supervisor mill. - Continued monitoring of cardiac rhythm and symptoms. On eliquis 4. Urinary tract infection (UTI). - He had a severe UTI following his TURP surgery, which has since resolved. - He still experiences slight hematuria, which is expected to improve. - Follow-up with the urologist for ongoing hematuria. - Monitoring for signs of recurrent infection or complications. 5. Medication management. - He will restart atorvastatin as previously prescribed by his supervisor mill. - Review of medication adherence and effectiveness. - Monitoring for any side effects or interactions with other medications. - Coordination with the supervisor mill for ongoing lipid management. Follow-up - Follow-up appointment towards the end of next week. documented in this encounter [facility] 11-21-2024 Miscellaneous Notes FYI Pt called states pt had labs T3-T4 was normal. TSH was still low. By pt cardio mobile it shows he is in NSR. states you had ask them to call back with update. Janeth leavittjoe Longstanding persistent atrial fibrillation: CHADS2 Vasc 3 on apixaban 5 mg b.i.d., cryoballoon and RF PVI 08/11/2022. First episode of recurrent persistent atrial fibrillation since his ablation, likely related to underlying hyperthyroidism. Asked patient/ to send us a message after his endocrinology appointment on 11/21/2024. If his free T4/TSH has normalized at that point, will plan on cardioversion in early December to allow for 4 weeks of uninterrupted anticoagulation due to recent TURP. Would not cardiovert currently as chance of staying in rhythm with active hyperthyroidism is low. Will arrange follow-up visit in 3 months. EP surgery schedulers: Please schedule cardioversion with me, next available/service week okay. Prefer cardioversion to be done sometime beginning of December. NPO after midnight, clear 6 hours, no medication changes, ensure no missed doses of apixaban over past 30 days, point of care labs. Assistant Program Manager called patients Taryn to update JZLs response. She will await a p/c from EP surgery schedulers. Called and spoke with Taryn (HIPAA) they are agreeable toe 12/20 for CDVN, pt education to be sent via my chart as discussed. Taryn stated that pt has been in NSR for about 2 weesk per his [employer] mobile. I told taryn we could schedule the cardioversion and have the pt come in for an EKG the day before and if in NSR cancel the CDVN. Taryn is agreeable with this plan Let's just have him send a current Kardia tracing and if NSR, ok to cancel RN visit for EKG and cardioversion. Addended by: NAY SORENSON on: 11/27/2024 11:27 AM Modules accepted: [facility]24 Note Addended by: Joe SORENSON on: 11/27/2024 11:27 AM Modules accepted: [facility] 11-21-2024 Telephone encounter Note FYI Pt called states pt had labs T3-T4 was normal. TSH was still low. By pt cardio mobile it shows he is in NSR. states you had ask them to call back with update. Thx slm Longstanding persistent atrial fibrillation: CHADS2 Vasc 3 on apixaban 5 mg b.i.d., cryoballoon and RF PVI 08/11/2022. First episode of recurrent persistent atrial fibrillation since his ablation, likely related to underlying hyperthyroidism. Asked patient/ to send us a message after his endocrinology appointment on 11/21/2024. If his free T4/TSH has normalized at that point, will plan on cardioversion in early December to allow for 4 weeks of uninterrupted anticoagulation due to recent TURP. Would not cardiovert currently as chance of staying in rhythm with active hyperthyroidism is low. Will arrange follow-up visit in 3 months. [facility] 11-21-2024 Telephone encounter Note EP surgery schedulers: Please schedule cardioversion with me, next available/service week okay. Prefer cardioversion to be done sometime beginning of December. NPO after midnight, clear 6 hours, no medication changes, ensure no missed doses of apixaban over past 30 days, point of care labs. [facility] 11-21-2024 Telephone encounter Note Assistant Program Manager called patients Taryn to update JZLs response. She will await a p/c from EP surgery schedulers. [facility] 11-21-2024 Telephone encounter Note Called and spoke with Taryn (HIPAA) they are agreeable toe 12/20 for CDVN, pt education to be sent via my chart as discussed. Taryn stated that pt has been in NSR for about 2 weesk per his [employer] mobile. I told taryn we could schedule the cardioversion and have the pt come in for an EKG the day before and if in NSR cancel the CDVN. Taryn is agreeable with this plan [facility] 11-21-2024 Telephone encounter Note Let's just have him send a current Kardia tracing and if NSR, ok to cancel RN visit for EKG and cardioversion. [facility] 11-21-2024 History of Present illness Narrative Singh Bowman is a 79 y.o. male No ref. provider found presents with chief complaint of No chief complaint on file. HPI: IM : 11/2024 Follow-up visit 11/21/2024 for lab still hyper TSH 0.09, free T4 0.97 ( 0.61-1.12), free T3 3.01 ( 2-4.4), he is still methimazole 10 mg twice a day, he is back to sinus rhythm. IM : 09/2024 Follow-up visit 09/18/2024 for lab still hyper TSH 0.005, free T4 2.1 ( 0.82-1.77), free T3 4.2 ( 2-4.4), TPO 11, TR AP less than 1.1, TG antibodies negative, he finished course of prednisone to for 2 weeks, still in metoprolol 25 HPI : 08/2024 New patient sent from Dr. Mariela Rashid for hyper thyroidism TSH 0.01, free [...] daily atorvastatin (LIPITOR) 20 mg, Oral, Daily donepezil (ARICEPT) 5 mg, Oral, Nightly finasteride (PROSCAR) 5 mg, Oral, Daily methIMAzole (TAPAZOLE) 10 mg, Oral, Daily metoprolol succinate XL (TOPROL-XL) 25 mg, Oral, Daily, Do not crush or chew. tamsulosin (FLOMAX) 0.4 mg, Oral, Daily ALLERGIES: [...] Value Date FREET3 4.2 09/06/2024 Visit Vitals Smoking Status Former Physical Exam Constitutional: Appearance: Normal appearance. He [...] orders for this visit: Hyperthyroidism (CMS/HCC) - T3, free; Future - T4, free; Future - TSH; Future - Hepatic function panel; Future - methIMAzole (Tapazole) 10 MG tablet; Take 1 tablet (10 mg) by mouth We will decrease his methimazole to 10 mg once a day we will see him in 3 months and adjust. Multinodular goiter (CMS/HCC) No need for biopsy, he had small nodules Chronic atrial fibrillation (HCC) (CMS/HCC) To follow with his supervisor mill he is on Eliquis Follow up in about 3 months (around 02/20/2025). documented in this encounter [facility] 11-16-2024 Note Patient Education Urology Benign Prostatic Hyperplasia Benign prostatic hyperplasia (BPH) [...] or symptoms? Symptoms of this condition include: ??? Getting up often during the night to urinate. ??? Needing to urinate frequently during the day. ??? Difficulty starting urine flow. ??? Decrease in size and strength of your urine stream. ??? Leaking (dribbling) after urinating. ??? Inability to pass urine. This needs immediate treatment. ??? Inability to completely empty your bladder. ??? Pain when you pass urine. This is more common if there is also an infection. ??? Urinary tract infection (UTI). How is this diagnosed? This condition is diagnosed based on your medical history, a physical exam, and your symptoms. Tests will also be done, such as: ??? A post-void bladder scan. This measures any amount of urine that may remain in your bladder after you finish urinating. ??? A digital rectal exam. In a rectal exam, your health care provider checks your prostate by putting a lubricated, gloved finger into your rectum to feel the back of your prostate gland. This exam detects the size of your gland and any abnormal lumps or growths. ??? An exam of your urine (urinalysis). ??? A prostate specific antigen (PSA) screening. This is a blood test used to screen for prostate cancer. ??? An ultrasound. This test uses sound waves [...] severity of your condition. Treatment may include: ??? Observation and yearly exams. This may be the only treatment needed if your condition and symptoms are mild. ??? Medicines to relieve your symptoms, including: ? Medicines to shrink the prostate. ? Medicines to relax the muscle of the prostate. ??? Surgery in severe cases. Surgery may include: ? Prostatectomy. In this procedure, the prostate tissue is removed completely through an open incision or with a laparoscope or robotics. ? Transurethral resection of the prostate (TURP). In this procedure, a tool is inserted through the opening at the tip of the penis (urethra). It is used to cut away tissue of the inner core of the prostate. The pieces are removed through the same opening of the penis. This removes the blockage. ? Transurethral incision (TUIP). In this procedure, small cuts are made in the prostate. This lessens the prostate's pressure on the urethra. ? Transurethral microwave thermotherapy (TUMT). This procedure uses microwaves to create heat. The heat destroys and removes a small amount of prostate tissue. ? Transurethral needle ablation (TUNA). This procedure uses radio frequencies to destroy and remove a small amount of prostate tissue. ? Interstitial laser coagulation (ILC). This procedure uses a laser to destroy and remove a small amount of prostate tissue. ? Transurethral electrovaporization (TUVP). This procedure uses electrodes to destroy and remove a small amount of prostate tissue. ? Prostatic urethral lift. This procedure inserts an implant to push the lobes of the prostate away from the urethra. Follow these instructions at home: ??? Take ngjv-okb-ipqhjjg and prescription medicines only as told by your health care provider. ??? Monitor your symptoms for any changes. Contact your health care provider with any changes. ??? Avoid drinking large amounts of liquid before going to bed or out in public. ??? Avoid or reduce how much caffeine or alcohol you drink. ??? Give yourself time when you urinate. ??? Keep all follow-up visits. This is important. Contact a health care provider if: ??? You have unexplained back pain. ??? Your symptoms do not get (more content not included)... [facility] 11-07-2024 History of Present illness Narrative Singh Danial Jose Date of visit: 11/07/2024 Date of : 1945 Age: 79 y.o. [...] mg total) by mouth in the morning. methIMAzole (TAPAZOLE) 10 mg tablet Take 1 tablet (10 mg total) by mouth in the morning and 1 tablet (10 mg total) before bedtime. tamsulosin (FLOMAX) 0.4 mg capsule Take 1 capsule (0.4 mg total) by mouth nightly. methazolAMIDE (NEPTAZANE) 50 mg tablet Take 1 tablet (50 mg total) by mouth in the morning and 1 tablet (50 mg total) before bedtime. (Patient not taking: Reported on 11/07/2024) No current facility-administered medications for this visit. Chief Complaint Patient presents with Follow-up EST PT F/U A FIB SCHED W/PT History of Present Illness Mr. Bowman is a 79M w/ PMH dementia, hyperthyroidism, Meniere s disease, HTN, long-standing persistent AF w/ [id number] 3 on apixaban 5 mg BID, s/p cryoballoon PVI and RF ablation of the RSPV with me 08/11/22 who presents to EP clinic at [place] for follow-up. He was last seen by me 11/16/23 and has been off of all antiarrhythmics including amiodarone which was discontinued 11/2022. He had recurrent AF on his home Kardia device 10/08/24 in the setting of recent metoprolol and methimazole initiation due to hyperthyroidism. Metoprolol was discontinued 10/08/24 due to severe fatigue. He was then started on diltiazem 180 mg qday for rate control by me. Patient presented the appointment his today. EKG in clinic shows rate controlled atrial fibrillation, heart rate 84 beats per minute, QRS 92 millisecond QTC 384 milliseconds. He has expressed symptoms of dyspnea with exertion, no syncope or presyncope. Also noted increased fatigue. Could not tolerate his metoprolol at all due to fatigue, tolerating diltiazem well. Of note, he had recent TURP last week and was taken off blood thinners for approximately 3-4 days periprocedurally. He has a follow-up appointment with his band master Dr. Brown on 11/21/24. Past Medical History: Diagnosis Date Angina pectoris Atrial fibrillation (CMS-HCC) Back pain Benign prostatic hyperplasia Cataracts, bilateral Colon polyps GERD (gastroesophageal reflux disease) Hemorrhoids Hyperlipidemia Meniere disease 06/2022 Peripheral angiopathy in diseases classified elsewhere No data recorded No data recorded No data recorded Past Surgical History: Procedure Laterality Date Afib Ablation with PARTH-NEL, CRYO, ICE N/A 08/11/2022 Performed by Emiliano Alaniz MD at [facility] () APPENDECTOMY 1967 BACK SURGERY 1985 CHOLECYSTECTOMY 09/26/2013 COLONOSCOPY 08/14/2010 COLONOSCOPY 10/16/2012 COLONOSCOPY 10/20/2015 COLONOSCOPY N/A 08/31/2019 Performed by Jed Worthington MD at [facility] COLONOSCOPY DIAGNOSTIC / SCREENING N/A 10/14/2023 Performed by Ishaan Zaman MD at [facility] EYE SURGERY 2017 PHACO KELMAN I IMPLANT INTRAOCULAR LENS Right 05/09/2018 Performed by Aracelis Auguste MD at [facility] PHACO KELMAN I IMPLANT INTRAOCULAR LENS Left 04/25/2018 Performed by Aracelis Auguste MD at [facility] SKIN BIOPSY 2008 TONSILLECTOMY 1952 Family History [...] Resource Strain: Low Risk (01/25/2023) Received from [facility] Overall Financial Resource Strain (CARDIA) Difficulty of Paying Living Expenses: Not hard at all Food Insecurity: No Food Insecurity (11/07/2024) Hunger Screening Food Insecurity - Worry: Never True Food Insecurity - Inability: Never True Transportation Needs: No Transportation Needs (01/25/2023) Received from [facility] PRAPARE - Transportation Lack of Transportation (Medical): No Lack of Transportation (Non-Medical): No Physical Activity: Sufficiently Active (01/25/2023) Received from [facility] Exercise Vital Sign Days of Exercise per Week: 5 days Minutes of Exercise per Session: 60 min Stress: No Stress Concern Present (01/25/2023) Received from [facility] [employer] - Occupational Stress Questionnaire Feeling of Stress : Not at all Social Connections: Moderately Isolated (01/25/2023) Received from [facility] Social Connection and Isolation Panel [NHANES] Frequency of Communication with Friends and Family: More than three times a week Frequency of Social Gatherings with Friends and Family: More than three times a week Attends Yarsani Services: Never Active Member of Clubs or Organizations: No Attends Club or Organization Meetings: Never Marital Status: Interpersonal Safety: Not At Risk (01/25/2023) Received from [facility] Humiliation, Afraid, Rape, and Kick questionnaire Fear of Current or Ex-Partner: No Emotionally Abused: No Physically Abused: No Sexually Abused: No Housing Instability: Low Risk (01/25/2023) Received from [facility] Housing Stability Vital Sign Unable to Pay for Housing in the Last Year: No Number of Places Lived in the Last Year: 1 Unstable Housing in the Last Year: No Review of Systems Review of Systems Constitutional: Negative. HENT: Negative. Eyes: Negative. Cardiovascular: Negative. Respiratory: Positive for cough and shortness of breath. Endocrine: Negative. Hematologic/Lymphatic: Negative. Skin: Negative. Musculoskeletal: Positive for joint swelling. Gastrointestinal: Negative. Genitourinary: Negative. Neurological: Positive for light-headedness and loss of balance. Psychiatric/Behavioral: Negative. Allergic/Immunologic: Negative. [...] bilaterally, no use of accessory muscles. Cardiovascular: irregularly irregular with normal S1 and S2 with no murmurs. Gastrointestinal: Soft, non-tender. Bowel sounds normal. Musculoskeletal: No peripheral edema. Neurologic: Oriented to time, person and place, affect appropriate. No focal/major motor defects noted. Psychiatric: Appropriate mood, memory and judgement. VITAL SIGNS: BP 90/64 Pulse 111 Ht 185.4 cm (6' 1 ) Wt 87.3 kg (192 lb 6.4 oz) SpO2 99% BMI 25.38 kg/m Orders Placed or Reconciled This Encounter Medications methIMAzole (TAPAZOLE) 10 mg tablet Sig: Take 1 tablet (10 mg total) by mouth in the morning and 1 tablet (10 mg total) before bedtime. There are no discontinued medications. IMPRESSIONS/PLAN 1. Longstanding persistent atrial fibrillation ([facility]) - POCT EKG Longstanding persistent atrial fibrillation: CHADS2 Vasc 3 on apixaban 5 mg b.i.d., cryoballoon and RF PVI 08/11/2022. First episode of recurrent persistent atrial fibrillation since his ablation, likely related to underlying hyperthyroidism. Asked patient/ to send us a message after his endocrinology appointment on 11/21/2024. If his free T4/TSH has normalized at that point, will plan on cardioversion in early December to allow for 4 weeks of uninterrupted anticoagulation due to recent TURP. Would not cardiovert currently as chance of staying in rhythm with active hyperthyroidism is low. Will arrange follow-up visit in 3 months. TODAYS ORDERS Orders Placed This Encounter Procedures POCT EKG FOLLOW UP No follow-ups on file. PCP: Mariela Rashid MD Referring Physician: Mariela Rashid MD [address] [place] [address] documented in this encounter [facility] 11-06-2024 Miscellaneous Notes [employer] MESSAGE REMINDER SENT TO PT TO REMIND OF PPC APPT. documented in this encounter [facility] 11-06-2024 Telephone encounter Note [employer] MESSAGE REMINDER SENT TO PT TO REMIND OF PPC APPT. [facility] 10-19-2024 History of Present illness Narrative Singh Danial Bowman Date of visit: 10/19/2024 Date of [...] Patient Atrial Fibrillation Pre-op Exam Cysto/TURP @ [facility] Dr Butler, 11/01/2024 History of Present [...] Peripheral angiopathy in diseases classified elsewhere (CMS-HCC) No data recorded No data recorded No data recorded Past Surgical History: Procedure Laterality Date Afib Ablation with PARTH-NEL, CRYO, ICE N/A 08/11/2022 Performed by Emiliano Alaniz MD at [facility] () APPENDECTOMY 1967 BACK SURGERY 1985 CHOLECYSTECTOMY 09/26/2013 COLONOSCOPY 08/14/2010 COLONOSCOPY 10/16/2012 COLONOSCOPY 10/20/2015 COLONOSCOPY N/A 08/31/2019 Performed by Jed Worthington MD at [facility] COLONOSCOPY DIAGNOSTIC / SCREENING N/A 10/14/2023 Performed by Ishaan Zaman MD at [facility] EYE SURGERY 2018 PHACO KELMAN I IMPLANT INTRAOCULAR LENS Right 05/09/2018 Performed by Aracelis Auguste MD at [facility] PHACO KELMAN I IMPLANT INTRAOCULAR LENS Left 04/25/2018 Performed by Aracelis Auguste MD at [facility] SKIN BIOPSY 2008 TONSILLECTOMY 1952 Family History [...] Resource Strain: Low Risk (01/25/2023) Received from [facility] Overall Financial Resource Strain (CARDIA) Difficulty of Paying Living Expenses: Not hard at all Food Insecurity: No Food Insecurity (10/19/2024) Hunger Screening Food Insecurity - Worry: Never True Food Insecurity - Inability: Never True Transportation Needs: No Transportation Needs (01/25/2023) Received from [facility] PRAPARE - Transportation Lack of Transportation (Medical): No Lack of Transportation (Non-Medical): No Physical Activity: Sufficiently Active (01/25/2023) Received from [facility] Exercise Vital Sign Days of Exercise per Week: 5 days Minutes of Exercise per Session: 60 min Stress: No Stress Concern Present (01/25/2023) Received from [facility] [employer] - Occupational Stress Questionnaire Feeling of Stress : Not at all Social Connections: Moderately Isolated (01/25/2023) Received from [facility] Social Connection and Isolation Panel [NHANES] Frequency of Communication with Friends and Family: More than three times a week Frequency of Social Gatherings with Friends and Family: More than three times a week Attends Yarsani Services: Never Active Member of Clubs or Organizations: No Attends Club or Organization Meetings: Never Marital Status: Interpersonal Safety: Not At Risk (01/25/2023) Received from [facility] Humiliation, Afraid, Rape, and Kick questionnaire Fear of Current or Ex-Partner: No Emotionally Abused: No Physically Abused: No Sexually Abused: No Housing Instability: Low Risk (01/25/2023) Received from [facility] Housing Stability Vital Sign Unable to Pay [...] He will general cardiology follow-up in the [place] office in 6 months. TODAYS ORDERS No orders of the defined types were placed in this encounter. FOLLOW UP Return in about 6 months (around 04/21/2025). PCP: Mariela Rashid MD Referring Physician: Mariela Rashid MD [address] [place] [address] documented in this encounter [facility] 10-18-2024 Miscellaneous Notes Called patient to remind them to bring their most current copy of their medication list with them to their appt. Spoke w/spouse verbalizes understanding. documented in this encounter [facility] 10-18-2024 Telephone encounter Note Called patient to remind them to bring their most current copy of their medication list with them to their appt. Spoke w/spouse verbalizes understanding. [facility] 10-09-2024 Miscellaneous Notes Since starting metroprolol, pt [...] control. Please advise. documented in this encounter [facility] 10-09-2024 Telephone encounter Note Since starting metroprolol, [...] until Thyroid is under control. Please advise. [facility] 10-01-2024 History of Present illness Narrative Images from the original note were not included. Chief Complaint: memory loss Subjective Singh Bowman, 79 y.o., male Patient presents today for a neurologic consult at the request of Dr. Ryan for memory changes. He is accompanied by his , Taryn. Patient states he believes he has been having an issue for a few years. His states this has been worse for about one year. He has difficulty remembering names. 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 She [...] CARDIOVERSION 2021 CATARACT EXTRACTION, BILATERAL 2018 CHOLECYSTECTOMY 2014 COLONOSCOPY W/ POLYPECTOMY 2013 HEMORRHOIDECTOMY 05/2019 Family History Problem Relation Name [...] alert to person, place and time. MOCA: Language is fluent without aphasia. Attention and [...] , wrist extensors , wrist flexor , front end driver strength 5/5. LUE Strength deltoid , biceps , triceps , wrist extensors , wrist flexor , front end driver strength 5/5. RLE Strength illopsoas, quadriceps, tibialis [...] reflex 1+ . Harrison's sign negative. Coordination: Byerlz-ie-rybv testing and rapid alternating movements are normal Gait: Normal Review and summary of old records: Wero cognitive assessment at [facility] on 10/01/2024: MRI of the brain on 09/02/2023: Chronic [...] has memory impairment. Wero cognitive assessment at [facility] on 10/01/2024 was 16/30. MRI of the [...] as the patient has a borderline low [place] cognitive assessment and does have good support through his who is here today. understands and is agreeable. Patient was accompanied by his today who provided additional history and was understanding and agreeable to the plan. Pt has been fully educated on their diagnosis, lab results, treatment options, follow up plan, return instructions, and discussion of mental health issues documented in this encounter [facility] 09-18-2024 History of Present illness Narrative Singh [...] : 08/2024 New patient sent from Dr. Mariela Rashid for hyper thyroidism TSH 0.01, free [...] fibrillation (HCC) (CMS/HCC) To follow with his supervisor mill he is on Eliquis Follow up in about 2 months (around 11/16/2024). documented in this encounter [facility] 09-11-2024 Hospital Discharge instructions Patient Education 09/11/2024 [...] Follow these instructions at home: Medicines Take fecn-xeh-uveqdha and prescription medicines only as told by [...] to keep your urine pale yellow. Take mbra-htx-grssdmi or prescription medicines. Eat foods that are [...] provider. Document Revised: 04/20/2022 Document Reviewed: 04/20/2022 Elsevier Patient Education 2023 Myreks. 09/11/2024 14:07:37 Transurethral Resection of the Prostate [...] including vitamins, herbs, eye drops, creams, and iwkc-lff-wvlgzir medicines. Any problems you or family members [...] provider tells you to take them. Taking hila-czr-fydkqhi medicines, vitamins, herbs, and supplements. Surgery safety [...] provider. Document Revised: 04/20/2022 Document Reviewed: 04/20/2022 [employer] Patient Education 2023 Myreks. Follow Up Care 09/10/2024 11:53:09 With:CARRIE PALMA, Medina Vazquez, URL Address: [facility] [address] , [place] [address]- When: Unknown [facility] 09-11-2024 Note Patient Education Urology Transurethral Resection [...] these instructions at home: Medicines ??? Take odww-jti-ujflrxx and prescription medicines only as told by [...] keep your urine pale yellow. ??? Take scny-ngu-xidubmp or prescription medicines. ??? Eat foods that [...] Revised: 04/20/2022 D (more content not included)... [facility] 09-10-2024 Hospital Discharge instructions Patient Education 09/10/2024 [...] including vitamins, herbs, eye drops, creams, and waun-vkm-fajnbee medicines. Any problems you or family members [...] provider tells you to take them. Taking vqiv-lka-bkjcxfk medicines, vitamins, herbs, and supplements. Tests You [...] Follow these instructions at home: Medicines Take gmwu-pjh-parhpja and prescription medicines only as told by [...] provider. Document Revised: 04/07/2022 Document Reviewed: 03/06/2021 [employer] Patient Education 2023 Myreks. 09/10/2024 11:34:26 Benign Prostatic Hyperplasia Benign Prostatic [...] urethra. Follow these instructions at home: Take pzxh-vfo-gmiqrxy and prescription medicines only as told by [...] provider. Document Revised: 02/10/2022 Document Reviewed: 02/10/2022 [employer] Patient Education 2023 Myreks. Follow Up Care 08/22/2024 16:15:09 With:CARRIE PALMA, Medina Vazquez, URL Address: [facility] [address], [place] [phone] When: Unknown Comments:sched cysto [facility] 09-10-2024 Note Urology Office/Clini c Note Chief Complaint referral lower urinary tract symptoms HPI Staff 79yr old male pt referred by Mariela Rashid MD for BPH with lower urinary [...] yo male new pt referred by Dr. Mariela Rashid for BPH w LUTS. Pt accompanied [...] Medina Vazquez, URL [facility] [address] [place] [phone] Additional Instructions: sched cysto Patient Education Cystoscopy Benign Prostatic Hyperplasia I, Chelsea Casas, personally scribed for Dr. Butler on 09/10/2024 11:40:29. . Documentation recorded by the queibeChelsea, accurately reflects the services(s) I performed and decisions made by me. Authenticated by Dr. Butler on 09/10/2024 11:44:35. Problem List/Past Medical History [...] and Father. Immu (more content not included)... [facility] Comment on above: Result Comment: Elec tronically Signed By: Medina BUTLER MD\.br\Date and Time Signed: 09/10/24 11:44 EST\.br\Electronically Co-Signed By: Chelsea Casas.br\Date and Time Co-Signed: 09/10/24 11:41 EST 09-10-2024 [...] including vitamins, herbs, eye drops, creams, and gjlh-med-ixrjmst medicines. ??? Any problems you or family [...] tells you to take them. ??? Taking fsbb-lzu-hotioms medicines, vitamins, herbs, and supplements. Tests You [...] these instructions at home: Medicines ??? Take rwzd-hoa-workomu and prescription medicines only as told by [...] (biopsy) during your (more content not included)... [facility] 09-06-2024 History of Present illness Narrative Singh Bowman is a 79 y.o. male Mariela Rashid MD presents with chief complaint of Thyroid Problem HPI: HPI : 08/2024 New patient sent from Dr. Mariela Rashid for hyper thyroidism TSH 0.01, free [...] 2013 COLONOSCOPY W/ POLYPECTOMY 2013 HEMORRHOIDECTOMY 05/2019 REVIEW OF SYMPTOMS: 14 POINT [...] medication if needed. Chronic atrial fibrillation (HCC) (CMS/HCC) To follow with his supervisor mill he is on Eliquis Follow up in about 3 weeks (around 09/27/2024). documented in this encounter [facility] 08-17-2024 History of Present illness Narrative Images [...] at all Patient Health Questionnaire-2 Score: 0 Zev Fall Risk History of Falling, Immediate or [...] by direct observation Three Word Registration: Banana, Winlock, Chair Clock Drawing: Normal Clock - 2 [...] has not had a consultation with a sales program manager in the past year. He also mentions [...] hips. He does not regularly see an billboard mechanic but reports no significant vision problems. Supplemental Information He is supposed to call Dr. Bedoya, a supervisor mill, on 11/30/2024. SUBJECTIVE: MEDICATIONS: Current Outpatient Medications [...] Overview Added automatically from request for surgery [id number] Meniere's disease of right ear stable Mixed [...] referral to a neurologist, Dr. Byrne in [place], will be made to assess his memory concerns and discuss potential treatment options. 4. Health maintenance. His blood pressure is well-regulated. Blood work will be conducted today. He is advised to continue his current healthy habits. Follow-up The patient will follow up in 6 months, or earlier if any complications arise. PROCEDURE Colonoscopy performed by Dr. Trejo. documented in this encounter [facility] 07-31-2024 Telephone encounter Note Approvals with refills [facility] 07-31-2024 Miscellaneous Notes Approvals with refills 90 day supply documented in this encounter [facility] 07-31-2024 Telephone encounter Note 90 day supply [facility] 04-12-2024 Telephone encounter Note Approvals with refills [facility] 04-12-2024 Miscellaneous Notes Approvals with refills documented in this encounter [facility] 11-16-2023 History of Present illness Narrative Singh [...] SURGERY NOT YET SCHEDULED FORM SCANNED TO [place] Pre-op Exam History of Present Illness Mr. Bowman is a 78M w/ PMH Meniere s disease, HTN, long-standing persistent AF w/ [id number] 3 on apixaban 5 mg BID, s/p cryoballoon PVI and RF ablation of the RSPV with me 08/11/22 who presents to EP clinic at [place] for preoperative evaluation for dental work which he had completed 11/01/23. He was last seen by me 11/17/22 when he remained in NSR off of amiodarone, which was discontinued due to his use of Maxzide for Meniere s disease. Patient presented the appointment by himself today. EKG demonstrates normal sinus rhythm, heart rate 75 beats per minute, MS interval 160 millisecond QRS 90 millisecond QTC 394 millisecond. He has been doing very well since her ablation, no subjective complaints today. Confirmed that he had teeth extracted on 11/01/2023. Past Medical History: Diagnosis Date Angina pectoris ([facility]) Atrial fibrillation ([facility]) Back pain Benign prostatic hyperplasia Cataracts, bilateral Colon polyps GERD (gastroesophageal reflux disease) Hemorrhoids Hyperlipidemia Meniere disease 06/2022 Peripheral angiopathy in diseases classified elsewhere ([facility]) No data recorded No data recorded No data recorded Past Surgical History: Procedure Laterality Date Afib Ablation with PARTH-NEL, CRYO, ICE N/A 08/11/2022 Performed by Emiliano Alaniz MD at [facility] () APPENDECTOMY 1967 BACK SURGERY 1985 CHOLECYSTECTOMY 09/26/2013 COLONOSCOPY 08/14/2010 COLONOSCOPY 10/16/2012 COLONOSCOPY 10/20/2015 COLONOSCOPY N/A 08/31/2019 Performed by Jed Worthington MD at [facility] COLONOSCOPY DIAGNOSTIC / SCREENING N/A 10/14/2023 Performed by Ishaan Zaman MD at [facility] EYE SURGERY 2017 PHACO KELMAN I IMPLANT INTRAOCULAR LENS Right 05/09/2018 Performed by Aracelis Auguste MD at [facility] PHACO KELMAN I IMPLANT INTRAOCULAR LENS Left 04/25/2018 Performed by Aracelis Auguste MD at [facility] SKIN BIOPSY 2008 TONSILLECTOMY 1952 Family History [...] Resource Strain: Low Risk (01/25/2023) Received from [facility] Overall Financial Resource Strain (CARDIA) Difficulty of Paying Living Expenses: Not hard at all Food Insecurity: No Food Insecurity (11/16/2023) Hunger Screening Food Insecurity - Worry: Never True Food Insecurity - Inability: Never True Transportation Needs: No Transportation Needs (01/25/2023) Received from [facility] PRAPARE - Transportation Lack of Transportation (Medical): No Lack of Transportation (Non-Medical): No Physical Activity: Sufficiently Active (01/25/2023) Received from [facility] Exercise Vital Sign Days of Exercise per Week: 5 days Minutes of Exercise per Session: 60 min Stress: No Stress Concern Present (01/25/2023) Received from [facility] [place] of Occupational Health - Occupational Stress Questionnaire Feeling of Stress : Not at all Social Connections: Moderately Isolated (01/25/2023) Received from [facility] Social Connection and Isolation Panel [NHANES] Frequency of Communication with Friends and Family: More than three times a week Frequency of Social Gatherings with Friends and Family: More than three times a week Attends Yarsani Services: Never Active Member of Clubs or Organizations: No Attends Club or Organization Meetings: Never Marital Status: Interpersonal Safety: Not At Risk (01/25/2023) Received from [facility] Humiliation, Afraid, Rape, and Kick questionnaire Fear of Current or Ex-Partner: No Emotionally Abused: No Physically Abused: No Sexually Abused: No Housing Instability: Low Risk (01/25/2023) Received from [facility] Housing Stability Vital Sign Unable to Pay for Housing in the Last Year: No Number of Places Lived in the Last Year: 1 In the last 12 months, was there a time when you did not have a steady place to sleep or slept in a chcf (including now)?: No Review of Systems Review [...] FOLLOW UP No follow-ups on file. PCP: Mariela Rashid MD Referring Physician: Mariela Rashid MD [address] [place] [id number] documented in this encounter [facility] 10-24-2023 Miscellaneous Notes ----- Message from Ishaan Zaman MD sent at 10/21/2023 1:18 PM EDT ----- Regarding: Pathology Please let patient know polyp removed was benign sessile serrated polyp with low-grade dysplasia, this is precancerous. I recommend repeat colonoscopy in 1 year. Thank you ----- Message ----- From: Interface - Lab Results/Orders In Sent: 10/18/2023 2:19 PM EDT To: Ishaan Zaman MD Spoke with patient regarding pathology results. Patient verbally understood with no further questions. Recall will be put in chart. documented in this encounter [facility] 10-24-2023 Telephone encounter Note ----- Message from Ishaan Zaman MD sent at 10/21/2023 1:18 PM EDT ----- Regarding: Pathology Please let patient know polyp removed was benign sessile serrated polyp with low-grade dysplasia, this is precancerous. I recommend repeat colonoscopy in 1 year. Thank you ----- Message ----- From: Interface - Lab Results/Orders In Sent: 10/18/2023 2:19 PM EDT To: Ishaan Zaman MD [facility] 10-24-2023 Telephone encounter Note Spoke with patient regarding pathology results. Patient verbally understood with no further questions. Recall will be put in chart. [facility] 10-20-2023 Miscellaneous Notes Received fax from [facility] oral surgery- Dr. Grier. Pt having 2 teeth extracted 11/01/23. Would like to hold Eliquis x 2 days. Pt last saw Dr. Alaniz. 11/17/22. Next scheduled appt 11/16/23 Assistant Program Manager called spoke w/ pt. Verified that only 2 teeth are being pulled. Denies ever having a stroke or any DVT/P.Emboli. Will message Dr. Alaniz for advice Okay to hold apixaban for 2 days prior to procedure. Resume as soon as deemed safe by the proceduralist Note created and faxed Pt. Notified documented in this encounter [facility] 10-20-2023 Telephone encounter Note Received fax from [facility] oral surgery- Dr. Clemow. Pt having 2 teeth extracted 11/01/23. Would like to hold Eliquis x 2 days. Pt last saw Dr. Alaniz. 11/17/22. Next scheduled appt 11/16/23 Assistant Program Manager called spoke w/ pt. Verified that only 2 teeth are being pulled. Denies ever having a stroke or any DVT/P.Emboli. Will message Dr. Alaniz for advice [facility] 10-20-2023 Telephone encounter Note Okay to hold apixaban for 2 days prior to procedure. Resume as soon as deemed safe by the proceduralist [facility] Work Phone: 10-20-2023 Telephone encounter Note Note created and faxed Pt. Notified [facility] 10-06-2023 Nurse Note Preoperative Education Checklist- General Surgery date: 10/14/23 Surgery time: 10a Arrival time: 8a 1. Bring a photo ID and your insurance card with you the day of surgery. You will check in at the main lobby of the [facility]- registration desk is straight ahead as soon as you walk in. Tell them you are here for surgery. 2. If you have a Living Will/Durable Power of Glass Cutting Machine Operator for Health Care that is not on [...] after you have bathed. 5. NO nail micronesian/acrylic on at least one finger. If you are having a hand, wrist or foot surgery then all nail micronesian and artificial/acrylic nails must be removed from [...] please call the Preadmission Testing office at [phone], Mon.-Fri. 7 a.m.-3 p.m. Leave a voicemail [...] mg per tablet Take morning of procedure [facility] 10-06-2023 Miscellaneous Notes Preoperative Education Checklist- General Surgery date: 10/14/23 Surgery time: 10a Arrival time: 8a 1. Bring a photo ID and your insurance card with you the day of surgery. You will check in at the main lobby of the [facility]- registration desk is straight ahead as soon as you walk in. Tell them you are here for surgery. 2. If you have a Living Will/Durable Power of Glass Cutting Machine Operator for Health Care that is not on [...] after you have bathed. 5. NO nail micronesian/acrylic on at least one finger. If you are having a hand, wrist or foot surgery then all nail micronesian and artificial/acrylic nails must be removed from [...] please call the Preadmission Testing office at [phone], Mon.-Fri. 7 a.m.-3 p.m. Leave a voicemail [...] morning of procedure documented in this encounter [facility] 09-22-2023 Miscellaneous Notes For further refills, pt needs to complete labs as ordered. Letter sent to [facility]. Last ov 11/17/22 Cbc/cmp 06/15/22 documented in this encounter [facility] 09-22-2023 Telephone encounter Note For further refills, pt needs to complete labs as ordered. Letter sent to [facility]. Last ov 11/17/22 Cbc/cmp 06/15/22 [facility] 09-06-2023 History of Present illness Narrative Images [...] Past Medical History: Diagnosis Date [place] Atrial fibrillation [place] Back pain Benign prostatic hyperplasia Cataracts, bilateral Colon polyps GERD (gastroesophageal reflux disease) Hemorrhoids Hyperlipidemia Meniere disease 06/2022 Peripheral angiopathy in diseases classified elsewhere ([facility] Past Surgical History: Procedure Laterality Date Afib Ablation with PARTH-NEL, CRYO, ICE N/A 08/11/2022 Performed by Emiliano Alaniz MD at [facility] () APPENDECTOMY 1967 BACK SURGERY 1985 CHOLECYSTECTOMY 09/26/2013 COLONOSCOPY 08/14/2010 COLONOSCOPY 10/16/2012 COLONOSCOPY 10/20/2015 COLONOSCOPY N/A 08/31/2019 Performed by Jed Worthington MD at [facility] EYE SURGERY 2017 PHACO KELMAN I IMPLANT INTRAOCULAR LENS Right 05/09/2018 Performed by Aracelis Auguste MD at [facility] PHACO KELMAN I IMPLANT INTRAOCULAR LENS Left 04/25/2018 Performed by Aracelis Auguste MD at [facility] SKIN BIOPSY 2008 TONSILLECTOMY 1952 No Known [...] patient/family/caregiver Referring and communicating with other health healthcare liaison History of colon polyps [Z86.010] PEDRO SULLIVAN [facility] [place] This note was created with the assistance of a speech recognition program. While intending to generate a timely document that accurately reflects the content of the visit, no guarantee can be provided that every grammatical or spelling mistake has been or will be identified or corrected. Thank you for your understanding. PEDRO Sullivan 09/06/23 0940 documented in this encounter [facility] 08-18-2023 Miscellaneous Notes Called Singh regarding the screening colonoscopy referral that our office received from Dr. Rashid, I left a message on his machine to call the office back to schedule an appointment. Singh called the office back and scheduled an appointment in regard to the colonoscopy referral. documented in this encounter [facility] 08-18-2023 Telephone encounter Note Called Singh regarding the screening colonoscopy referral that our office received from Dr. Rashid, I left a message on his machine to call the office back to schedule an appointment. [facility] 08-18-2023 Telephone encounter Note Singh called the office back and scheduled an appointment in regard to the colonoscopy referral. [facility] Evaluation + Plan note Future Appointments Appointment Date:09/11/2024 02:00:00 PM Scheduled Provider:Medina BUTLER MD Location:[facility] Appointment Type:URO Procedure 15 min [facility] Evaluation + Plan note Future Appointments Appointment Date:11/05/2024 09:00:00 AM Scheduled Provider: Location:[facility] Appointment Type:URO Nurse Visit Appointment Date:11/16/2024 10:45:00 AM Scheduled Provider:Medina BUTLER MD Location:[facility] Appointment Type:URO Office Visit [facility] Evaluation + Plan note Future Appointments Appointment Date:02/28/2026 11:00:00 AM Scheduled Provider:Medina BUTLER MD Location:[facility] Appointment Type:URO Office Visit [facility] Evaluation + Plan note Future Appointments Appointment Date:06/14/2025 10:45:00 AM Scheduled Provider:Medina BUTLER MD Location[facility] Appointment Type:URO Office Visit Appointment Date:02/28/2026 11:00:00 AM Scheduled Provider:Medina BUTLER MD Location:[facility] Appointment Type:URO Office Visit [facility] Evaluation note Diagnosis Enlarged prostate Hypertrophy [...] atrial fibrillation (CMS/HCC) documented in this encounter [facility]* Diagnosis Hyperthyroidism (CMS/HCC)- Primary Thyrotoxicosis without mention of goiter or other cause, without mention of thyrotoxic crisis or storm documented in this encounter [facility]* Diagnosis Hyperthyroidism (CMS/HCC)- Primary Thyrotoxicosis without mention of goiter or other cause, without mention of thyrotoxic crisis or storm documented in this encounter [facility]* Diagnosis Multinodular goiter (CMS/HCC)- Primary Nontoxic multinodular goiter Hyperthyroidism (CMS/HCC) Thyrotoxicosis without mention of goiter or other cause, without mention of thyrotoxic crisis or storm Chronic atrial fibrillation (HCC) (CMS/HCC) Atrial fibrillation documented in this encounter [facility]* Diagnosis Hyperthyroidism (CMS/HCC)- Primary Thyrotoxicosis without mention of goiter or other cause, without mention of thyrotoxic crisis or storm Multinodular goiter (CMS/HCC) Nontoxic multinodular goiter Chronic atrial fibrillation (HCC) (CMS/HCC) Atrial fibrillation documented in this encounter [facility]* Diagnosis History of colon polyps- Primary Family history of malignant neoplasm of colon Hematochezia Blood in stool [facility] Diagnosis Paroxysmal atrial fibrillation (CMS-HCC)- Primary Atrial fibrillation [facility] Diagnosis Moderate late onset Alzheimer's dementia, unspecified whether behavioral, psychotic, or mood disturbance or anxiety (CMS/HCC)- Primary Memory changes documented in this encounter [facility]* Diagnosis Longstanding persistent atrial fibrillation (CMS-HCC)- Primary Pre-op evaluation [facility]* Diagnosis Longstanding persistent atrial fibrillation (CMS-HCC)- Primary [facility]* Diagnosis Hyperthyroidism (CMS/HCC)- Primary Thyrotoxicosis without mention of goiter or other cause, without mention of thyrotoxic crisis or storm Multinodular goiter (CMS/HCC) Nontoxic multinodular goiter Chronic atrial fibrillation (HCC) (CMS/HCC) Atrial fibrillation documented in this encounter [facility]* Diagnosis Longstanding persistent atrial fibrillation (CMS-HCC)- Primary documented in this encounter [facility]* Diagnosis Hyperthyroidism (CMS/HCC)- Primary Thyrotoxicosis without mention of goiter or other cause, without mention of thyrotoxic crisis or storm Longstanding persistent atrial fibrillation (CMS/HCC) Mixed hyperlipidemia (CMS/HCC) Mixed hyperlipidemia Moderate late onset Alzheimer's dementia without behavioral disturbance, psychotic disturbance, mood disturbance, or anxiety (CMS/HCC) Paroxysmal atrial fibrillation (CMS/HCC) Atrial fibrillation Hematochezia Blood in stool documented in this encounter [facility]* Diagnosis Mild neurocognitive disorder- Primary Concentration deficit 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* Diagnosis Hyperthyroidism- Primary Thyrotoxicosis without mention of goiter or other cause, without mention of thyrotoxic crisis or storm Chronic atrial fibrillation (HCC) Atrial fibrillation Moderate late onset Alzheimer's dementia without behavioral disturbance, psychotic disturbance, mood disturbance, or anxiety (HCC) Hypertension, unspecified type Skin lesion of left arm Unspecified disorder of skin and subcutaneous tissue Skin lesion of face Unspecified disorder of skin and subcutaneous tissue Snoring Other dyspnea and respiratory abnormality Mixed hyperlipidemia Mixed hyperlipidemia documented in this encounter [facility]* Diagnosis Longstanding persistent atrial fibrillation (CMS-HCC)- Primary Paroxysmal atrial fibrillation (CMS-HCC) Atrial fibrillation documented in this encounter [facility]* Diagnosis Hyperthyroidism- Primary Thyrotoxicosis without mention of goiter or other cause, without mention of thyrotoxic crisis or storm Chronic atrial fibrillation (HCC) Atrial fibrillation Moderate late onset Alzheimer's dementia without behavioral disturbance, psychotic disturbance, mood disturbance, or anxiety (HCC) Hypertension, unspecified type Skin lesion of left arm Unspecified disorder of skin and subcutaneous tissue Skin lesion of face Unspecified disorder of skin and subcutaneous tissue Snoring Other dyspnea and respiratory abnormality Mixed hyperlipidemia Mixed hyperlipidemia Hyperthyroidism- Primary Thyrotoxicosis without mention of goiter or other cause, without mention of thyrotoxic crisis or storm Multinodular goiter Nontoxic multinodular goiter Chronic atrial fibrillation (HCC) Atrial fibrillation documented in this encounter [facility]* Diagnosis Hyperthyroidism- Primary Thyrotoxicosis without mention of goiter or other cause, without mention of thyrotoxic crisis or storm Chronic atrial fibrillation (HCC) Atrial fibrillation Moderate late onset Alzheimer's dementia without behavioral disturbance, psychotic disturbance, mood disturbance, or anxiety (HCC) Hypertension, unspecified type Skin lesion of left arm Unspecified disorder of skin and subcutaneous tissue Skin lesion of face Unspecified disorder of skin and subcutaneous tissue Snoring Other dyspnea and respiratory abnormality Mixed hyperlipidemia Mixed hyperlipidemia Neoplasm of unspecified behavior of bone, soft tissue, and skin Actinic keratosis Capillary angioma Nevus, non-neoplastic Lentigines Melanocytic nevus of trunk Benign neoplasm of skin of trunk, except scrotum Seborrheic keratosis EIC (epidermal inclusion cyst) Sebaceous cyst documented in this encounter [facility]* Diagnosis Longstanding persistent atrial fibrillation (CMS-HCC) Rectal bleeding Hemorrhage of rectum and anus 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 Longstanding persistent atrial fibrillation (CMS-HCC) Rectal bleeding Hemorrhage of rectum and anus documented in this encounter [facility]* Diagnosis Hyperthyroidism- Primary Thyrotoxicosis without mention of goiter or other cause, without mention of thyrotoxic crisis or storm Chronic atrial fibrillation (HCC) Atrial fibrillation Moderate late onset Alzheimer's dementia without behavioral disturbance, psychotic disturbance, mood disturbance, or anxiety (HCC) Hypertension, unspecified type Skin lesion of left arm Unspecified disorder of skin and subcutaneous tissue Skin lesion of face Unspecified disorder of skin and subcutaneous tissue Snoring Other dyspnea and respiratory abnormality Mixed hyperlipidemia Mixed hyperlipidemia Fall, sequela- Primary Chronic kidney disease, stage 3a (CMS-HCC) Contusion of face, sequela Memory changes Longstanding persistent atrial fibrillation (HCC) documented in this encounter [facility]* Diagnosis Hyperthyroidism- Primary Thyrotoxicosis without mention of goiter or other cause, without mention of thyrotoxic crisis or storm Chronic atrial fibrillation (HCC) Atrial fibrillation Moderate late onset Alzheimer's dementia without behavioral disturbance, psychotic disturbance, mood disturbance, or anxiety (HCC) Hypertension, unspecified type Skin lesion of left arm Unspecified disorder of skin and subcutaneous tissue Skin lesion of face Unspecified disorder of skin and subcutaneous tissue Snoring Other dyspnea and respiratory abnormality Mixed hyperlipidemia Mixed hyperlipidemia Fall, sequela- Primary Chronic kidney disease, stage 3a (CMS-HCC) Contusion of face, sequela Memory changes Longstanding persistent atrial fibrillation (HCC) Epidermal inclusion cyst- Primary Sebaceous cyst Actinic keratosis documented in this encounter [facility]* Diagnosis Hyperthyroidism- Primary Thyrotoxicosis without mention of goiter or other cause, without mention of thyrotoxic crisis or storm Chronic atrial fibrillation (HCC) Atrial fibrillation Moderate late onset Alzheimer's dementia without behavioral disturbance, psychotic disturbance, mood disturbance, or anxiety (HCC) Hypertension, unspecified type Skin lesion of left arm Unspecified disorder of skin and subcutaneous tissue Skin lesion of face Unspecified disorder of skin and subcutaneous tissue Snoring Other dyspnea and respiratory abnormality Mixed hyperlipidemia Mixed hyperlipidemia Fall, sequela- Primary Chronic kidney disease, stage 3a (CMS-HCC) Contusion of face, sequela Memory changes Longstanding persistent atrial fibrillation (HCC) Contusion of left great toe with damage to nail, initial encounter- Primary Onychomycosis Dermatophytosis of nail Onychodystrophy Other specified disease of nail Pain in both feet documented in this encounter [facility]* Diagnosis Hyperthyroidism- Primary Thyrotoxicosis without mention of goiter or other cause, without mention of thyrotoxic crisis or storm Chronic atrial fibrillation (HCC) Atrial fibrillation Moderate late onset Alzheimer's dementia without behavioral disturbance, psychotic disturbance, mood disturbance, or anxiety (HCC) Hypertension, unspecified type Skin lesion of left arm Unspecified disorder of skin and subcutaneous tissue Skin lesion of face Unspecified disorder of skin and subcutaneous tissue Snoring Other dyspnea and respiratory abnormality Mixed hyperlipidemia Mixed hyperlipidemia Fall, sequela- Primary Chronic kidney disease, stage 3a (CMS-HCC) Contusion of face, sequela Memory changes Longstanding persistent atrial fibrillation (HCC) Encounter for removal of sutures documented in this encounter [facility]* Diagnosis Longstanding persistent atrial fibrillation (CMS-HCC)- Primary Longstanding persistent atrial fibrillation (CMS-HCC) Rectal bleeding Hemorrhage of rectum and anus Paroxysmal atrial fibrillation (CMS-HCC) Atrial fibrillation Rectal bleeding Hemorrhage of rectum and anus Longstanding persistent atrial fibrillation (CMS-HCC) Rectal bleeding Hemorrhage of rectum and anus [facility] Longstanding persistent atrial fibrillation (CMS-HCC)- Primary Rectal bleeding Hemorrhage of rectum and anus [facility] N[facility] No data available for this section [facility] InstructionsNot on filedocumented in this encounter [...] available for this section [facility] reason for visit Narrative* Consultation (Routine) - Closed Specialty Diagnoses / Procedures Referred By Maggie christie Referred To Contact Neurology Diagnoses Memory changes Procedures MS OFFICE/OUTPATIENT [facility] 60 MINUTES Mariela Rashid MD [address] [place] [address] Phone: tel: fax: David Byrne DO [address] [place] [address] Phone: tel: fax: Referral ID Status Reason Start Date Expiration Date V isits Requested Visits Authorized [id number] Closed Consult and Treat 08/17/2024 02/13/2025 1 [facility] N[facility] Auth/Cert Specialty Diagnoses / Procedures Referred By Maggie christie Referred To Contact Diagnoses Longstanding persistent atrial fibrillation (CMS-HCC) Rectal bleeding i48.1 k62.5 Procedures MS PERQ CLSR TCAT L ATR APNDGE W/ENDOCARDIAL IMPLNT Watchman Implant with ICE - BSI, ICE EP Invasive Emiliano Alaniz MD [address] [place] [address] Phone: tel: fax: Referral ID Status Reason Start Date Expiration Date Visits Re quested Visits Authorized [id number] 1 1 [facility] Summary Purpose Family History No Family History Records Found Advance Directives No Advanced Directives Records Found Date Activated Date Inactivated Comments 05/02/2025 1:46 PM Date Activated Date Inactivated Comments 05/02/2025 1:46 PM Date Activated Date Inactivated Comments 05/02/2025 1:46 PM 05/02/2025 9:11 PM Additional Source Comments Care Teams (unrecognized sec tion and content) Burr Grinder Relationship Specialty Start Date End Date Michell France NP [address] [place] [address] PCP - ACO Reach 12/30/22 Mariela Rashid MD [address] [place] [address] PCP - General Family Medicine 01/25/23 Burr Grinder Relationship Specialty Start Date End Date Michell France NP PCP - ACO Reach 12/30/22 Mariela Rashid MD [address] [place] [address] PCP - General Family Medicine 01/25/23 Burr Grinder Relationship Specialty Start Date End Date Michell France NP PCP - ACO Reach 12/30/22 Mariela Rashid MD [address] [place] [address] PCP - General Family Medicine 01/25/23 Burr Grinder Relationship Specialty Start Date End Date Michell France NP PCP - ACO Reach 12/30/22 Mariela Rashid MD [address] [place] [address] PCP - General Family Medicine 01/25/23 Burr Grinder Relationship Specialty Start Date End Date Michell France NP PCP - ACO Reach 12/30/22 Mariela Rashid MD [address] [place] [address] PCP - General Family Medicine 01/25/23 Burr Grinder Relationship Specialty Start Date End Date Michell France NP PCP - ACO Reach 12/30/22 Mariela Rashid MD [address] [place] [address] PCP - General Family Medicine 01/25/23 Burr Grinder Relationship Specialty Start Date End Date Michell France NP PCP - ACO Reach 12/30/22 Mariela Rashid MD [address] [place] [address] PCP - General Family Medicine 01/25/23 Brooks Jeffery, ADJUNCT TRAINER [address] [facility] [address] [place] [address] Licensed Practical Nurse Family Medicine 08/22/24 Burr Grinder Relationship Specialty Start Date End Date Michell France NP PCP - ACO Reach 12/30/22 Mariela Rashid MD [address] [place] [address] PCP - General Family Medicine 01/25/23 Brooks Jeffery, ADJUNCT TRAINER [address] [place] [address], [place] [address] Licensed Practical Nurse Family Medicine 08/22/24 Burr Grinder Relationship Specialty Start Date End Date Mariela Rashid MD [address] [place] [address] PCP - General Family Medicine 05/09/17 Burr Grinder Relationship Specialty Start Date End Date Mariela Rashid MD [address] [place] [address] PCP - General Family Medicine 05/09/17 Burr Grinder Relationship Specialty Start Date End Date Mariela Rashid MD [address] [place] [address] PCP - General Family Medicine 01/25/23 Mariela Rashid MD [address] [place] [address] PCP - ACO Reach 09/14/24 Brooks Jeffery, ADJUNCT TRAINER [address] [place] [address], [place] [address] Licensed Practical Nurse Family Medicine 08/22/24 Burr Grinder Relationship Specialty Start Date End Date Mariela Rashid MD [address] [place] [address] PCP - General Family Medicine 01/25/23 Mariela Rashid MD [address] [place] [address] PCP - ACO Reach 09/14/24 Jose D Brooks, ADJUNCT TRAINER [address] [place] [address], [place] [id number] Licensed Practical Nurse Family Medicine 08/22/24 Burr Grinder Relationship Specialty Start Date End Date Mariela Rashid MD [address] [place] [address] PCP - General Family Medicine 05/09/17 Burr Grinder Relationship Specialty Start Date End Date Mariela Rashid MD [address] [place] [address] PCP - General Family Medicine 05/09/17 Burr Grinder Relationship Specialty Start Date End Date Mariela Rashid MD [address] [place] [address] PCP - General Family Medicine 05/09/17 Burr Grinder Relationship Specialty Start Date End Date Mariela Rashid MD [address] [place] [address] PCP - General Family Medicine 01/25/23 Mariela Rashid MD [address] [place] [address] PCP - ACO Reach 09/14/24 Brooks Jeffery, ADJUNCT TRAINER [address] [place] [address], [place] [address] Licensed Practical Nurse Family Medicine 08/22/24 Burr Grinder Relationship Specialty Start Date End Date Mariela Rashid MD [address] [facility] [place] [address] PCP - General Family Medicine 01/25/23 Mariela Rashid MD [address] [facility] [place] [address] PCP - ACO Reach 09/14/24 Brooks Jeffery, ADJUNCT TRAINER [address] [place] [address], [place] [id number] Licensed Practical Nurse Family Medicine 08/22/24 Burr Grinder Relationship Specialty Start Date End Date Mariela Rashid MD [address] [facility] [place] [address] PCP - General Family Medicine 01/25/23 Mariela Rashid MD [address] [facility] [place] [address] PCP - ACO Reach 09/14/24 Brooks Jeffery, ADJUNCT TRAINER [address] [place] [address], [place] [address] Licensed Practical Nurse Family Medicine 08/22/24 Burr Grinder Relationship Specialty Start Date End Date Mariela Rashid MD [address] [facility] [place] [address] PCP - General Family Medicine 01/25/23 Mariela Rashid MD [address] [facility] [place] [address] PCP - ACO Reach 09/14/24 Brooks Jeffery, ADJUNCT TRAINER [address] [place] [address], [place] [address] Licensed Practical Nurse Family Medicine 08/22/24 Burr Grinder Relationship Specialty Start Date End Date Mariela Rashid MD PCP - General Family Medicine 05/09/17 Burr Grinder Relationship Specialty Start Date End Date Mariela Rashid MD PCP - General Family Medicine 05/09/17 Burr Grinder Relationship Specialty Start Date End Date Mariela Rashid MD [address] [place] [address] PCP - General Family Medicine 01/25/23 Mariela Rashid MD [address] [place] [address] PCP - ACO Reach 09/14/24 Brooks Jeffery, ADJUNCT TRAINER [address] [place] [address] Licensed Practical Nurse Family Medicine 08/22/24 Burr Grinder Relationship Specialty Start Date End Date Mariela Rashid MD PCP - General Family Medicine 05/09/17 Burr Grinder Relationship Specialty Start Date End Date Mariela Rashid MD [address] [place] [address] PCP - General Family Medicine 01/25/23 Mariela Rashid MD [address] [place] [address] PCP - ACO Reach 09/14/24 Brooks Jeffery, ADJUNCT TRAINER [address] [place] [address], [place] [id number] Licensed Practical Nurse Family Medicine 08/22/24 Burr Grinder Relationship Specialty Start Date End Date Mariela Rashid MD [address] [place] [address] PCP - General Family Medicine 01/25/23 Mariela Rashid MD [address] [place] [address] PCP - ACO Reach 09/14/24 Brooks Jeffery, ADJUNCT TRAINER [address] [place] [address], [place] [address] Licensed Practical Nurse Family Medicine 08/22/24 Burr Grinder Relationship Specialty Start Date End Date Mariela Rashid MD [address] [place] [address] PCP - General Family Medicine 01/25/23 Mariela Rashid MD [address] [place] [address] PCP - ACO Reach 09/14/24 Brooks Jeffery, ADJUNCT TRAINER [address] [place] [address], [place] [address] Licensed Practical Nurse Family Medicine 08/22/24 Burr Grinder Relationship Specialty Start Date End Date Mariela Rashid MD [address] [place] [address] PCP - General Family Medicine 12/06/24 Burr Grinder Relationship Specialty Start Date End Date Mariela Rashid MD [address] [place] [address] PCP - General Family Medicine 12/06/24 Burr Grinder Relationship Specialty Start Date End Date Mariela Rashid MD [address] [place] [address] PCP - General Family Medicine 01/25/23 Mraiela Rashid MD [address] [place] [address] PCP - ACO Reach 09/14/24 Brooks Jeffery, ADJUNCT TRAINER [address] [place] [address], [place] [id number] Licensed Practical Nurse Family Medicine 08/22/24 Burr Grinder Relationship Specialty Start Date End Date Mariela Rashid MD [address] [facility] [place] [address] PCP - General Family Medicine 01/25/23 Mariela Rashid MD [address] [facility] [place] [address] PCP - ACO Reach 09/14/24 Jose D Brooks, ADJUNCT TRAINER [address] [place] [address], [place] [id number] Licensed Practical Nurse Family Medicine 08/22/24 Burr Grinder Relationship Specialty Start Date End Date Mariela Rashid MD [address] [facility] [place] [address] PCP - General Family Medicine 12/06/24 Burr Grinder Relationship Specialty Start Date End Date Mariela Rashid MD [address] [facility] [place] [address] PCP - General Family Medicine 12/06/24 Burr Grinder Relationship Specialty Start Date End Date Mariela Rashid MD [address] [place] [address] PCP - General Family Medicine 01/25/23 Mariela Rashid MD [address] [facility] [place] [address] PCP - ACO Reach 09/14/24 JefferyBrooks wheat, ADJUNCT TRAINER [address] [place] [address], [place] [address] Licensed Practical Nurse Family Medicine 08/22/24 Burr Grinder Relationship Specialty Start Date End Date Mariela Rashid MD [address] [place] [address] PCP - General Family Medicine 01/25/23 Mariela Rashid MD [address] [place] [address] PCP - ACO Reach 09/14/24 Brooks Jeffery, ADJUNCT TRAINER [address] [place] [address], [place] [address] Licensed Practical Nurse Family Medicine 08/22/24 Burr Grinder Relationship Specialty Start Date End Date Mariela Rashid MD [address] [place] [address] PCP - General Family Medicine 01/25/23 Mariela Rashid MD [address] [place] [address] PCP - ACO Reach 09/14/24 Brooks Jeffery, [facility] [address] [place] [address], [place] [address] Licensed Practical Nurse Family Medicine 08/22/24 Burr Grinder Relationship Specialty Start Date End Date Mariela Rashid MD [address] [place] [address] PCP - General Family Medicine 01/25/23 Mariela Rashid MD [address] [place] [address] PCP - ACO Reach 09/14/24 Brooks Jeffery, [facility] [address] [place] [address], [place] [address] Licensed Practical Nurse Family Medicine 08/22/24 Burr Grinder Relationship Specialty Start Date End Date Mariela Rashid MD [address] [place] [address] PCP - General Family Medicine 01/25/23 Mariela Rashid MD [address] [place] [address] PCP - ACO Reach 09/14/24 Brooks Jeffery, ADJUNCT TRAINER [address] [place] [address], [place] [address] Licensed Practical Nurse Family Medicine 08/22/24 Burr Grinder Relationship Specialty Start Date End Date Mariela Rashid MD [address] [place] [address] PCP - General Family Medicine 01/25/23 Mariela Rahsid MD [address] [place] [address] PCP - ACO Reach 09/14/24 JefferyBrooks wheat, [facility] [address] [place] [address], [place] [address] Licensed Practical Nurse Family Medicine 08/22/24 Burr Grinder Relationship Specialty Start Date End Date Mariela Rashid MD [address] [place] [address] PCP - General Family Medicine 01/25/23 Mariela Rashid MD [address] [place] [address] PCP - ACO Reach 09/14/24 Brooks Jeffery, ADJUNCT TRAINER [address] [place] [address], [place] [address] Licensed Practical Nurse Family Medicine 08/22/24 Burr Grinder Relationship Specialty Start Date End Date Mariela Rashid MD [address] [place] [address] PCP - General Family Medicine 01/25/23 Mariela Rashid MD [address] [place] [address] PCP - ACO Reach 09/14/24 Brooks Jeffery, ADJUNCT TRAINER [address] [place] [address], [place] [address] Licensed Practical Nurse Family Medicine 08/22/24 Burr Grinder Relationship Specialty Start Date End Date Mariela Rashid MD [address] [place] [address] PCP - General Family Medicine 01/25/23 Mariela Rashid MD [address] [place] [address] PCP - ACO Reach 09/14/24 Brooks Jeffery, ADJUNCT TRAINER [address] [place] [address], [place] [address] Licensed Practical Nurse Family Medicine 08/22/24 Burr Grinder Relationship Specialty Start Date End Date Mariela Rashid MD [address] [place] [address] PCP - General Family Medicine 12/06/24 Burr Grinder Relationship Specialty Start Date End Date Mariela Rashid MD [address] [place] [address] PCP - General Family Medicine 12/06/24 Burr Grinder Relationship Specialty Start Date End Date Mariela Rashid MD [address] [facility] [place] [address] PCP - General Family Medicine 01/25/23 Mariela Rashid MD [address] [facility] [place] [address] PCP - ACO Reach 09/14/24 Brooks Jeffery, ADJUNCT TRAINER [address] [place] [address] Licensed Practical Nurse Family Medicine 08/22/24 Burr Grinder Relationship Specialty Start Date End Date Mariela Rashid MD [address] [facility] [place] [address] PCP - General Family Medicine 12/06/24 Burr Grinder Relationship Specialty Start Date End Date Mariela aRshid MD [address] [facility] [place] [address] PCP - General Family Medicine 12/06/24 Burr Grinder Relationship Specialty Start Date End Date Mariela Rashid MD [address] [facility] [place] [address] PCP - General Family Medicine 01/25/23 Mariela Rashid MD [address] [facility] [place] [address] PCP - ACO Reach 09/14/24 Brooks Jeffery, ADJUNCT TRAINER [address] [place] [address], [place] [address] Licensed Practical Nurse Family Medicine 08/22/24 Reason for Visit (unrecogniz ed section and content) Reason Comments Medicare Annual Wellness Visit Subsequen t Reason Comments Thyroid Problem Specialty Diagnoses / Procedures Referred By Maggie t Referred To Contact Endocrinology Diagnoses Hyperthyroidism (CMS/HCC) Procedures MS OFFICE/OUTPATIENT [facility] 60 MINUTES Mariela Rashid MD [address] [place] [address] Phone: tel: fax: Shikha Rowell MD [address] [place] [address] Phone: tel: fax: Referral ID Status Reason Start Date Expiration Date V isits Requested Visits Authorized [id number] Closed Specialty Services Required 08/19/2024 02/15/2025 1 1 Reason Onset Date Comments Med Refill 12/12/2023 Reason Comments Thyroid Problem Follow-up LAB Reason Comments Colon Cancer Screening 3 year recall, la colon 08/31/19 Reason Comments Med Refill Reason Onset Date Comments Holding eliquis 10/20/2023 Reason Comments Follow-up 1 YR FU L/S JZL NO T ESTS SCHED W/ PRE OP ORAL SURGERY NOT YET SCHEDULED FORM SCANNED TO MEDIA Pre-op Exam Reason Onset Date Comments Medication Problem 10/09/2024 Reason Comments New Patient Atrial Fibrillation Pre-op Exam Cysto/TURP @ [facility] Dr [facility], 11/01/2024 Reason Comments Follow-up EST PT F/U A FIB [facility] W/PT Reason Comments Rectal Bleeding Reason Comments Rectal Bleeding Rectal bleeding, [facility] ER 11/30/24, last colon 10/14/23 Specialty Diagnoses / Procedures Referred By Maggie t Referred To Contact General Surgery Diagnoses Rectal bleeding Anette Hannon, DRIVER ENGINEER-GLUE JOINTER OPERATOR [address] [place] [address] Phone: tel: fax: Ishaan Zaman MD [address] [place] [address] Phone: tel: fax: Referral ID Status Reason Start Date Expiration Date V isits Requested Visits Authorized [id number] Closed Specialty Services Required 11/30/2024 11/30/2025 1 1 Reason Onset Date Comments Med Refill 01/01/2025 Reason Comments Memory Loss Reason Comments Follow-up Reason Comments Follow-up EST PT F/U 3 MS L/S JZL SCHED W/PT, DISCUSS WATCHMAN D/T RECENT BLEERDING ISSUES Medication Problem Pt has not been curr ently taking Atorvastatin, Pt saw PCP on 02/12/2025, PCP stated that pt should continue medication pt's would like to discuss if medication is necessary, pt's and son decided to discontinue Atorvastatin. Pt has not been on medication since October of 2024. Reason Onset Date Comments EP Surgery (PT Education) 02/18/2025 Reason Comments Suspicious Skin Lesion Reason Comments Follow-up OV to discuss watchm an with BRIDGET 05/02 - l.s BCD - schd w. pt Reason Comments Hospital Follow-up Reason Comments Excision Reason Comments Toe Pain Singh Bowman 80yo New Patient relates he dropped wheel kletsel dehe wintun on his Left great toe. DOI 03/16/2025,Patient states his pain is gone, but the nail was loose. Bleeding and bruising at the time. Patient is requesting all nails be trimmed if possible today and questions concerning nail fungus. Patient is taking Eliquis at this time. SS 11.5DOI 03/16/2025. Reason Comments Suture / Staple Removal Reason Comments Wound Check (unrecognized sect ion and content) No Status Records FoundNo Status Records FoundNo Status Records FoundNo Status Records FoundNo Status Records Found INFORMATION SOURCE (unrecogn ized section and content) DATE CREATED AUTHOR 12/11/2024 [facility] DATE CREATED AUTHOR AUTHOR'S ORGANIZ ATION 04/26/2025 [facility] DATE CREATED AUTHOR AUTHOR'S ORGANIZ ATION 04/27/2025 [facility] EP[facility] DATE CREATED AUTHOR AUTHOR'S ORGANIZ ATION 04/30/2025 [facility] DATE CREATED AUTHOR AUTHOR'S ORGANIZ ATION 05/14/[address] [facility] Scheduled Active and Recently Administ ered Medications (unrecognized section and content) Medication Order 04/30/2025 05/01/2025 05/02/2025 sodium chloride 0.9 % flush 3 mL 3 mL, intravenous, Every 12 hours scheduled, First dose on Uma 05/02/25 at 1230, Pre-Procedure (CV) 1230 (Due)2100 (Due) sodium chloride 0.9 % flush 3 mL 3 mL, intravenous, Every 12 hours scheduled, First dose on Uma 05/02/25 at 1315, Pre-op 1315 (Due)2100 (Due) Continuous Medication Order 04/30/2025 05/01/2025 05/02/2025 sodium chloride 0.9 % infusion 20 mL/hr, intravenous, Continuous, Starting on Uma 05/02/25 at 1230, For 1 day, Pre-Procedure (CV), . 1230 (Due) sodium chloride 0.9 % infusion 20 mL/hr, intravenous, Continuous, Starting on Uma 05/02/25 at 1315, Pre-op, If fluid restriction not indicated, infuse at a rate up to 5 mL/kg/hr not to exceed the total replacement volume (2 ml/kg/hr) from the time NPO status was initiated. 1315 (Due) sodium chloride 0.9 % infusion 25 mL/hr, intravenous, Continuous, Starting on Uma 05/02/25 at 1315, Pre-op 1315 (Due) PRN Medication Order 04/30/2025 05/01/2025 05/02/2025 dextrose (GLUTOSE) 40 % gel 15 g 15 g, oral, As needed, low blood sugar, blood glucose less than 70 mg/dL, Starting on Uma 05/02/25 at 1215, Pre-Procedure (CV), If patient conscious and taking PO. If blood glucose is not greater than 70 mg/dL after initial treatment, repeat treatment. dextrose 5 % (D5W) infusion 100 mL/hr, intravenous, Continuous PRN, blood glucose less than 70 mg/dL, Starting on Uma 05/02/25 at 1215, For 1 day, Pre-Procedure (CV), Use immediately following dextrose 50% or glucagon treatment for patients who are unconscious or NPO. Contact prescriber for additional orders. If blood glucose is not greater than 70 mg/dL after initial treatment, repeat treatment. dextrose 50 % in water (D50W) 50% solution 25 mL 25 mL, intravenous, As needed, low blood sugar, blood glucose less than 70 mg/dL and unconscious or NPO with IV access, Starting on Uma 05/02/25 at 1215, Pre-Procedure (CV), Push over 1-3 minutes STAT. If conscious and not NPO, immediately follow with meal tray or high protein (7 grams) snack if tray not available. If NPO, initiate 5% dextrose in water at 100 mL/hr and contact prescriber for additional orders. If blood glucose is not greater than 70 mg/dL after initial treatment, repeat treatment. VESICANT (RED) Warning: HYPERTONIC solution. fentaNYL (SUBLIMAZE) injection 25 mcg(Linked Group 1) 25 mcg, intravenous, Every 10 min PRN, pain scale 1-6, Starting on Uma 05/02/25 at 1302, Pre-op, Maximum fentaNYL (SUBLIMAZE) dose is 100 mcg Look-alike/sound-alike medication - verify indication for use. fentaNYL (SUBLIMAZE) injection 25 mcg 25 mcg, intravenous, Every 5 min PRN, pain scale 1-6, Starting on Uma 05/02/25 at 1517, PACU (only), Maximum fentaNYL (SUBLIMAZE) dose: 200 mcg Look-alike/sound-alike medication - verify indication for use. fentaNYL (SUBLIMAZE) injection 50 mcg(Linked Group 1) 50 mcg, intravenous, Every 10 min PRN, severe pain - pain scale 7-10, Starting on Uma 05/02/25 at 1302, Pre-op, Maximum fentaNYL (SUBLIMAZE) dose is 100 mcg Look-alike/sound-alike medication - verify indication for use. fentaNYL (SUBLIMAZE) injection 50 mcg 50 mcg, intravenous, Every 5 min PRN, severe pain - pain scale 7-10, Starting on Uma 05/02/25 at 1517, PACU (only), Maximum fentaNYL (SUBLIMAZE) dose: 200 mcg Look-alike/sound-alike medication - verify indication for use. glucagon HCL injection 1 mg 1 mg, intramuscular, As needed, low blood sugar, blood glucose less than 70 mg/dL and unconscious or NPO without IV access., Starting on Uma 05/02/25 at 1215, Pre-Procedure (CV), If conscious and not NPO, immediately follow with meal tray or high protein (7Grams) snack if tray not available. If NPO, initiate IV 5% Dextrose/Water at 100 mL/hr and contact prescriber for additional orders. If blood glucose is not greater than 70 mg/dL after initial treatment, repeat treatment. hydrALAZINE (APRESOLINE) injection 5 mg 5 mg, intravenous, Every 10 min PRN, high blood pressure, systolic blood pressure greater than 160 mmHg, Starting on Uma 05/02/25 at 1517, PACU (only), Maximum dose of hydrALAZINE (APRESOLINE) is 20 mg while in PACU Look-alike/sound-alike medication - verify indication for use. Administer IV doses as a slow IV push; maximum rate: 5 mg/minute. iohexoL (OMNIPAQUE) 300 mg iodine/mL (CANCELED) Code/trauma/sedation medication, Starting on Uma 05/02/25 at 1517, Intra-Procedure (CV) 1517 (Given - Provid er: Emiliano Alaniz MD - Comment: used throughout procedure) labetaloL (NORMODYNE,TRANDATE) injection 5 mg 5 mg, intravenous, Every 5 min PRN, high blood pressure, systolic blood pressure greater than 160 mmHg and heart rate greater than 60 beats per minute, Starting on Uma 05/02/25 at 1517, PACU (only), Maximum dose of labetalol (TRANDATE) is 20 mg while in PACU Look-alike/sound-alike medication - verify indication for use. lidocaine PF (XYLOCAINE) 10 mg/mL (1 %) injection 1 mg 1 mg (0.1 mL), intradermal, As needed, times 1 per IV attempt for IV start pain control, Starting on Uma 05/02/25 at 1302, Pre-op lidocaine PF (XYLOCAINE) 10 mg/mL (1 %) injection (CANCELED) Code/trauma/sedation medication, Starting on Uma 05/02/25 at 1424, Intra-Procedure (CV) 1424 (Given - Provid er: Emiliano Alaniz MD) midazolam (VERSED) injection 1 mg 1 mg, intravenous, As needed, anxiety, Starting on Uma 05/02/25 at 1302, For 2 doses, Pre-op, May repeat in 10 minutes, if needed, if original midazolam (VERSED) ineffective, Indication: Other, Indication: anxiety 1341 (Given - Provid er: Danyell Zepeda RN) naloxone (NARCAN) injection 0.1 mg 0.1 mg, intravenous, As needed, respiratory depression, Starting on Uma 05/02/25 at 1517, For 4 doses, PACU (only), Maximum dose: 0.4 mg Look-alike/sound-alike medication - verify indication for use. sodium chloride 0.9 % flush 3 mL 3 mL, intravenous, As needed, line care, before and after each intermittent use, Starting on Uma 05/02/25 at 1216, Pre-Procedure (CV) sodium chloride 0.9 % flush 3 mL 3 mL, intravenous, As needed, line care, before and after each intermittent use, Starting on Uma 05/02/25 at 1302, Pre-op Linked Groups Order Group 1: fentaNYL (SUBLIMAZE) injection 25 mcgJump to med 25 mcg, intravenous, Every 10 min PRN, pain scale 1-6, Starting on Uma 05/02/25 at 1302, Pre-op, Maximum fentaNYL (SUBLIMAZE) dose is 100 mcg Look-alike/sound-alike medication - verify indication for use. Or fentaNYL (SUBLIMAZE) injection 50 mcgJump to med 50 mcg, intravenous, Every 10 min PRN, severe pain - pain scale 7-10, Starting on Uma 05/02/25 at 1302, Pre-op, Maximum fentaNYL (SUBLIMAZE) dose is 100 mcg Look-alike/sound-alike medication - verify indication for use. FOR RECORDS PERTAINING TO PATIENTS WHO ARE [...] BE BASED ON THE PRIMARY CLINICAL RECORDS. [employer] [facility]. provides no warranty or guarantee of the accuracy or completeness of information in this document.
[2025-05-20 12:39] LABS: INR 1.07; Partial Thromboplastin Time 37.5 sec (22.3-36.2); Prothrombin Time 11.3 sec (9.0-11.6)
== END 2025-05-20 11:30 | disposition home or self-care (01) ==
PROVIDERS: PCP Family Medicine; Visit Provider Urology
DX: Z51.81 Encounter for therapeutic drug level monitoring (principal); Z79.01 Long term (current) use of anticoagulants
CPT/HCPCS: 36415; 85610; 85730

== ENCOUNTER 2025-05-21 07:59 | Day surgery (SDC) | payer MEDICARE, BC, SELFPAY ==
--- OUTSIDE RECORDS SUMMARY | 2025-04-10 10:20 | XMS_ITS | Encounter Summary ---
Author Organization [facility] Healthcare Address [address] [facility] [place] [address] Care Team Providers Care Staining Machine Operator Name Role Phone Mary Grace Rashid MD Primary Care Provider [phone] Brooks Jeffery LPN Unavailable [phone] Mary Grace Rashid MD Unavailable Reason for Visit * Reason Comments Hospital Follow-up Encounter Details Date Type Department Care Team (Late st Contact Info) Description 04/10/2025 10:20 AM EDT Office Visit [facility] Family Medicine [address] [place] [address] Mary Grace Rashid MD [address], [place] [id number] Fall, sequela (Primary Dx); Chronic kidney disease, stage 3a (CMS-HCC); Contusion of face, sequela; Memory changes; Longstanding persistent atrial fibrillation (HCC) Social History Tobacco Use Types Packs/Day Years Used Date Smoking Tobacco: Former Cigarettes 1 34 0 [birth year]/08/1964 - 1998 Smokeless Tobacco: Never Tobacco Cessation:Counseling Given: Not Answered Alcohol Use Standard Drinks/Week Comments Not Currently 0 (1 standard drink = 0.6 oz pur e alcohol) B1300 Health Literacy Answer Date Recor ded How often do you need to hav e someone help you when you read instructions, pamphlets, or other written material from your doctor or pharmacy? Sometimes 02/08/2025 Humiliation, Afraid, Rape, and Kick questionnair e Answer Date Recorded Within the last year, have y ou been afraid of your partner or ex-partner? No 02/08/2025 Within the last year, have y ou been humiliated or emotionally abused in other ways by your partner or ex-partner? No Within the last year, have y ou been kicked, hit, slapped, or otherwise physically hurt by your partner or ex-partner? No 02/08/2025 Within the last year, have y ou been raped or forced to have any kind of sexual activity by your partner or ex-partner? No 02/08/2025 Social Connection and Isolation Panel Answer Date Recorded In a typical week, how many times do you talk on the phone with family, friends, or neighbors? Once a week 02/08/2025 How often do you get togethe r with friends or relatives? Twice a week 02/08/2025 How often do you attend [facility] or muslim services? More than 4 times per year 02/08/2025 Do you belong to any clubs o r organizations such as jew groups, unions, fraternal or athletic groups, or school groups? Yes 02/08/2025 How often do you attend meet ings of the clubs or organizations you belong to? More than 4 times per year 02/08/2025 Are you , , di vorced, , never , or living with a partner? 02/08/2025 AUDIT-C Answer Date Recorded Q1: How often do you have a drink containing alc ohol? Monthly or less 02/08/2025 Q2: How many drinks containi ng alcohol do you have on a typical day when you are drinking? 1 or 2 02/08/2025 Q3: How often do you have si x or more drinks on one occasion? Never 02/08/2025 Overall Financial Resource Strain (CARDIA) Answe r Date Recorded How hard is it for you to pa y for the very basics like food, housing, medical care, and heating? Not hard at all 02/08/2025 PHQ-2 Answer Date Recorded Patient Health Questionnaire-2 Score 0 08/17/2024 [facility] - Occupational Stress Questionnaire Answer Date Recorded Do you feel stress - tense, restless, nervous, or anxious, or unable to sleep at night because your mind is troubled all the time - these days? Only a little 02/08/2025 Exercise Vital Sign Answer Date Recorde d On average, how many days pe r week do you engage in moderate to strenuous exercise (like a brisk walk)? 0 days 02/08/2025 On average, how many minutes do you engage in exercise at this level? 0 min 02/08/2025 Hunger Vital Sign Answer Date Recorded Within the past 12 months, y ou worried that your food would run out before you got the money to buy more. Never true 02/09/20 25 Within the past 12 months, t he food you bought just didn't last and you didn't have money to get more. Never true 02/08/2025 PRAPARE - Transportation Answer Date Re corded In the past 12 months, has l ack of transportation kept you from medical appointments or from getting medications? No 11/2024 In the past 12 months, has l ack of transportation kept you from meetings, work, or from getting things needed for daily living? No 02/08/2025 Housing Stability Vital Sign Answer Song e Recorded In the last 12 months, was t here a time when you were not able to pay the mortgage or rent on time? No 01/25/2023 In the last 12 months, how many places have you lived? 1 01/25/2023 In the last 12 months, was t here a time when you did not have a steady place to sleep or slept in a mcfp (including now)? No 01/25/2023 Housing Stability Vital Sign Answer Song e Recorded In the last 12 months, was t here a time when you were not able to pay the mortgage or rent on time? No 02/08/2025 In the past 12 months, how m any times have you moved where you were living? 0 02/08/2025 At any time in the past 12 m [facility], were you homeless or living in a mcfp (including now)? No 02/08/2025 Sex and Gender Information Value Date Recorded Sex Assigned at Male 01/26/2023 5:11 PM EDT Legal Sex Male 7:14 PM EDT Gender Identity Male 01/26/2023 5:11 PM EDT Sexual Orientation Straight 01/26/2023 5: 11 PM EDT documented as of this encounter Last Filed Vital Signs Vital Sign Reading Time Taken Comments Blood Pressure 124/78 04/10/2025 10:26 AM EDT Pulse 78 04/10/2025 10:26 AM EDT Temperature - - Respiratory Rate 18 04/10/2025 10:26 AM EDT Oxygen Saturation 98% 04/10/2025 10:26 AM EDT Inhaled Oxygen Concentration - - Weight 90.1 kg (198 lb 9.6 oz) 04/10/2025 10:26 AM EDT Height 188 cm (6' 2 ) 04/10/2025 10:26 AM EDT Body Mass Index 25.5 04/10/2025 10:26 AM EDT documented in this encounter Progress Notes * Mary Grace Rashid MD - 04/10/2025 10:20 AM EDTAssociated Problem(s): Longstanding persistent atrial fibrillation (HCC) Managed by cardiol considering watchman * Mary Grace Rashid MD - 04/10/2025 10:20 AM EDT Images from the original note were not included. Subjective ?Quick Links Last Note in Specialty Snapshot Edit RFV/CC Edit Screenings Current Meds Patient ID: Mauro Garcia is a 80 y.o. male who presents for Hospital Follow-up. HPI Flowsheet Row Patient Outreach from 04/03/2025 in [facility] with Brooks Jeffery LPN Hospital Information ED, Hospital or Fci Facility Discharge? ED Patient has been contacted within 2 days of being seen in the ED Yes Diagnosis Right ureteral stone (Primary Dx). Discharge Date 03/29/25 Discharged To: Home Setting Discharge Hospital [facility] Engagement Admission Date 03/29/25 Medications Discharge medications reviewed and reconciled from hospital? Yes Prescription Comments Ordered: ondansetron ODT (ZOFRAN ODT) 4 mg - Dissolve 1 tablet (4 mg total) on tongue every 8 (eight) hours as needed for nausea for up to 10 doses - Qty. 10, HYDROcodone-acetaminophen (NORCO) 5-325 mg - Indications: Right ureteral stone - Take 1 tablet by mouth every 6 (six) hours as needed for pain for up to 5 days. Max Daily Amount: 4 tablets - Qty. 15. Appointments Does the patient have a primary care provider? Yes [Dr. Mary Grace Rashid, [facility].] Nursing Interventions Educated patient on importance of making appointment if symptoms persist/worsen, Patient declined follow up appointment w/ PCP Does the patient have any upcoming specialty appointments? Yes [ - Urology.] Self Management Patient Teaching Does the patient have access to their discharge instructions? Yes What is the patient's perception of their health status since discharge? Improving Is the patient/caregiver able to teach back the hierarchy of who to call/visit for symptoms/problems? PCP, Specialist, Home Health nurse, Urgent Care, ED, 911 Yes Wrap Up Wrap Up Additional Comments Procedures: Urinalysis, Blood work, ECG 12-Lead, CT LUMBAR SPINE WO CONT (IMPRESSION: * No fracture or malalignment. * Multilevel degenerative changes.), CT abdomen and pelvis without contrast (IMPRESSION: Mild right hydronephrosis with 3 mm calculus in the midportion ofthe right ureter.), CT CHEST WO CONT (IMPRESSION: * No acute traumatic findings in the chest.), CT f acial bones without contrast (IMPRESSION: Normal CT facial bones.), CT BRAIN WO CONT (IMPRESSION: *No acute intracranial abnormality). History of Present Illness The patient presents for a routine check and follow-up from the ER. He has been under the care of Dr. Dotson, a urologist, who performed a TURP procedure earlier this year. A follow-up appointment with Dr. Sanchez is scheduled for next week, during which he will undergo a KUB x-ray. His last visit to the ER was due to significant pain, which was initially managed with [place]. However, this medication seemed to exacerbate his dementia symptoms, so it was replaced with Tylenol. He has been maintaining good hydration by drinking water and Gatorade, and reports no issues with urination. His current medication regimen includes tamsulosin, taken twice daily. He recently experienced a fall after tripping over hose, resulting in an eye injury. He also reports some balance issues and uses a cane for support. Additionally, he has some eye problems that are being monitoredHe is also scheduled for a procedure to address basal cell carcinoma on 05/24/2025. PAST SURGICAL HISTORY: - TURP procedure earlier this year - Scheduled procedure for basal cell carcinoma on 05/24/2025 ?Quick Review Review Full History Edit History Meds - apixaban (Eliquis) 5 MG tablet atorvastatin (Lipitor) 20 MG tablet dilTIAZem CD (Cardizem CD) 180 MG 24 hr capsule finasteride (Proscar) 5 MG tablet furosemide (Lasix) 20 MG tablet methIMAzole (Tapazole) 5 MG tablet tamsulosin (Flomax) 0.4 MG 24 hr capsule HYDROcodone-acetaminophen (Cleveland) 5-325 MG tablet ondansetron ODT (Zofran-ODT) 4 MG disintegrating tablet --- PMH - Arthritis Cataract Cholecystitis Colon polyps COVID-19 Disease of thyroid gland ETD (eustachian tube dysfunction) Gallbladder disorder GERD (gastroesophageal reflux disease) History of medical problems Hypertension Meniere disease Peptic ulceration Peripheral angiopathy Sensorineural hearing loss Varicella Visual impairment Objective ?Quick Links Add Vitals Timeline (Adult) Labs Imaging Results Review Trend Vitals ?? Avoid pulling in long tables of results. Comment on relevant results to support your medical decision making. BP 124/78 (BP Location: Left arm, Patient Position: Sitting, BP Cuff Size: Large adult) Pulse 78 Resp 18 Ht 6' 2 Wt 198 lb 9.6 oz SpO2 98% BMI 25.50 kg/m?? Physical Exam Constitutional: Appearance: He is normal [...] and Affect: Mood normal. Behavior: Behavior normal. Physical Exam Neurological: Memory intact today. Respiratory: Clear to auscultation, no wheezing, rales or rhonchi ?Quick Links Full Problem List Cardiology Chronic Pain GI Hypertension Thyroid Assessment & Plan Chronic kidney disease, stage 3a (CMS-HCC) stable Fall, sequela Contusion of face, sequela resolving Memory changes stable Longstanding persistent atrial fibrillation (HCC) Managed by cardiol considering watchman Assessment & Plan 1. Post-ER follow-up: - A follow-up appointment with Dr. Sanchez is scheduled for next week, during which he will undergo aKUB x-ray. - He is advised to continue with his current medication regimen and maintain adequate hydration. 2. Fall: - He experienced a fall recently, tripping over his dog's hose. He has a little balance problem anduses a cane most of the time. - Monitoring for any further balance issues is recommended. Follow-up: The patient will follow up in August 2025 or sooner if any complications arise. documented in this encounter Plan of Treatment Upcoming Encounters Date Type Department Care Team (Late st Contact Info) Description 05/24/2025 9:30 AM EDT Office Visit [facility] [address] [place] [address] Clau Franklin MD [address] [place] [address] 06/05/2025 11:50 AM EDT Telemedicine [facility] [address] [place] [id number] Shikha Rowell MD [address] [place] [address] 07/22/2025 8:30 AM EST Procedure Visit [facility] [address] [place] [address] Zeb Decker DPM [address] [place] [address] 08/15/2025 10:40 AM EST Office Visit [facility] [address] [facility] [place] [phone] Mary Grace Rashid MD [address] [facility] [place] [address] 09/09/2025 2:05 PM EST Office Visit [facility] [address] [place] [address] Danika Lovell, RN [facility] [address] [place] [address] documented as of this encounter Visit Diagnoses Diagnosis Fall, sequela- Primary Chronic kidney disease, stage 3a (CMS-HCC) Contusion of face, sequela Memory changes Longstanding persistent atrial fibrillation (HCC) documented in this encounter Additional Health Concerns Assessment Noted Time PHQ-9 Depression Total Score: 3 08/16/19 24 10:00 AM EST documented as of this encounter Care Teams Staining Machine Operator Relationship Specialty Start Date End Date Mary Grace Rashid MD [address] [facility] [place], [place] [phone] PCP - General Family Medicine 01/25/23 Mary Grace Rashid MD [address] [place], [place] [id number] PCP - ACO Reach 09/14/24 Brooks Jeffery LPN [address] [place] [id number] Licensed Practical Nurse Family Medicine 08/22/24 documented as of this encounter
[2025-05-07 13:45] VITALS: BP 131/79; PULSE 66; TEMP 36.6; O2SAT 98; BMI 25.7
--- OUTSIDE RECORDS SUMMARY | 2025-05-10 10:00 | XMS_ITS | Encounter Summary ---
[facility] Organization [id number] [address] [place] [address] Care Team Providers Care Intelligence Senior Sergeant Name Role Phone Mary Grace Rashid MD Primary Care Provider [phone] Reason for Visit * Reason Comments Wound Check Encounter Details Date Type Department Care Team (Latest Contact Info) Description 05/10/2025 10:00 AM EDT Clinical [facility] [address] [place] [phone] Longstanding persistent atrial fibrillation (CMS-HCC) (Primary Dx); Rectal bleeding Social History Tobacco Use Types Packs/Day Years Used Date Smoking Tobacco: Former Cigarettes 1 34 0 [birth year]/08/1964 - 1998 Smokeless Tobacco: Never Alcohol Use Standard Drinks/Week Comments Yes 0 (1 standard drink = 0.6 oz pur e alcohol) not very often - rare Childcare Answer Date Recorded Childcare Unknown 01/17/2019 Employment Answer Date Recorded Employment Unknown 01/17/2019 Hunger Screening Answer Date Recorded Within the past 12 months we worried whether our food would run out before we got money to buy more. Never True 03/29/2025 Within the past 12 months th e food we bought just didn't last and we didn't have money to get more. Never True 03/29/2025 Purpose - Life Answer Date Recorded Purpose and direction in life Unknown Sex and Gender Information Value Date Recorded Sex Assigned at Male 07/07/2021 6:25 PM EST Legal Sex Male 11:28 AM EDT Gender Identity Male 07/07/2021 6:25 PM EST Sexual Orientation Straight 07/07/2021 6: 25 PM EST documented as of this encounter Progress Notes * Nay Levy LPN - 05/10/2025 10:00 AM EDT Groin check s/p watchman with JZL on 05/02 Pt reports compliance with medications and all medications reviewed Groin site exam Puncture(s) site: right Bruising: mild Swelling: none Palpation of site(s): yes Tenderness: none Drainage: none Closure device appreciated: no Activity/restrictions: pt cleared to resume normal activity All questions and concerns addressed with pt - advised to notify office of return of symptoms/signsof arrhythmia F/u appt: pt to call and schedule CT Cardiac morph after 06/16. documented in this encounter Plan of Treatment Upcoming Encounters Date Type Department Care Team (Late st Contact Info) Description 06/18/2025 10:[address] [facility] [place] [address] [place] [address] 07/26/2025 4:15 PM EST Office Visit [facility] Card[facility] [address] [address] Emiliano Alaniz MD [address] [place] [phone] documented as of this encounter Visit Diagnoses Diagnosis Longstanding persistent atrial fibrillation (CMS-HCC)- Primary Rectal bleeding Hemorrhage of rectum and anus documented in this encounter Additional Health Concerns Assessment Noted Time A Body Mass Index follow-up plan has been documented for the patient 09/11/2019 9:35 AM EST documented as of this encounter Care Teams Intelligence Senior Sergeant Relationship Specialty Start Date End Date Mary Grace Rashid MD [address] [place] [address] PCP - General Family Medicine 12/06/24 documented as of this encounter
[2025-05-21] VITALS (12 sets, daily range): BP systolic 117–152; BP diastolic 70–93; PULSE 57–78; TEMP 36.4; O2SAT 94–100; BMI 26.2
--- OUTSIDE RECORDS SUMMARY | 2025-05-21 08:01 | XMS_ITS | Encounter Summary ---
Author Organization [facility] Healthcare Address [address] [place] [address] Care Team Providers Care Explosive Ordnance Specialist Name Role Phone Michell France NP Unavailable Mary Grace Rashid MD Primary Care Provider [phone] Brooks Jeffery LPN Unavailable [phone] Mary Grace Rashid MD Unavailable Encounter Details Date Type Department Care Team (Late st Contact Info) Description 02/03/2023 [facility] Family Medicine [address] [place] [address] Michell France NP Social History Tobacco Use Types Packs/Day Years Used Date Smoking Tobacco: Former Cigarettes Q uit: 1998 Smokeless Tobacco: Never Alcohol Use Standard Drinks/Week Comments Not Currently 0 (1 standard drink = 0.6 oz pur e alcohol) Humiliation, Afraid, Rape, and Kick questionnair e Answer Date Recorded Within the last year, have y ou been afraid of your partner or ex-partner? No 01/25/2023 Within the last year, have y ou been humiliated or emotionally abused in other ways by your partner or ex-partner? No Within the last year, have y ou been kicked, hit, slapped, or otherwise physically hurt by your partner or ex-partner? No 01/25/2023 Within the last year, have y ou been raped or forced to have any kind of sexual activity by your partner or ex-partner? No 01/25/2023 Social Connection and Isolation Panel Answer Date Recorded In a typical week, how many times do you talk on the phone with family, friends, or neighbors? More than three times a week 01/25/2023 How often do you get togethe r with friends or relatives? More than three times a week 01/25/2023 How often do you attend chur ch or buddhist services? Never 01/25/2023 Do you belong to any clubs o r organizations such as presybeterian groups, unions, fraternal or athletic groups, or school groups? No 01/25/2023 How often do you attend meet ings of the clubs or organizations you belong to? Never 01/25/2023 Are you , , di vorced, , never , or living with a partner? 01/25/2023 AUDIT-C Answer Date Recorded Q1: How often do you have a drink containing alc ohol? Monthly or less 01/25/2023 Q2: How many drinks containi ng alcohol do you have on a typical day when you are drinking? 1 or 2 01/25/2023 Q3: How often do you have si x or more drinks on one occasion? Never 01/25/2023 Overall Financial Resource Strain (CARDIA) Answe r Date Recorded How hard is it for you to pa y for the very basics like food, housing, medical care, and heating? Not hard at all 01/25/2023 PHQ-2 Answer Date Recorded Patient Health Questionnaire-2 Score 0 01/25/2023 [facility] - Occupational Stress Questionnaire Answer Date Recorded Do you feel stress - tense, restless, nervous, or anxious, or unable to sleep at night because your mind is troubled all the time - these days? Not at all 01/25/2023 Exercise Vital Sign Answer Date Recorde d On average, how many days pe r week do you engage in moderate to strenuous exercise (like a brisk walk)? 5 days 01/25/2023 On average, how many minutes do you engage in exercise at this level? 60 min 01/25/2023 Hunger Vital Sign Answer Date Recorded Within the past 12 months, y ou worried that your food would run out before you got the money to buy more. Never true 01/26/20 Within the past 12 months, t he food you bought just didn't last and you didn't have money to get more. Never true 01/25/2023 PRAPARE - Transportation Answer Date Re corded In the past 12 months, has l ack of transportation kept you from medical appointments or from getting medications? No 01/07 In the past 12 months, has l ack of transportation kept you from meetings, work, or from getting things needed for daily living? No 01/25/2023 Housing Stability Vital Sign Answer [...] in a mcfp (including now)? No 01/25/2023 Sex and Gender Information Value Date Recorded Sex Assigned at Male 01/26/2023 5:11 PM EDT Legal Sex Male 7:14 PM EDT Gender Identity Male 01/26/2023 5:11 PM EDT Sexual Orientation Straight 01/26/2023 5: 11 PM EDT documented as of this encounter Plan of Treatment Upcoming Encounters Date Type Department Care Team (Late st Contact Info) Description 05/24/2025 9:30 AM EDT Office Visit [facility] [address] [place] [address] Clau Franklin MD [address] [place] [address] 06/05/2025 11:50 AM EDT Telemedicine [facility] [address] [place] [phone] Shikha Rowell MD [address] [place] [address] 07/22/2025 8:30 AM EST Procedure Visit [facility] [address] [place] [phone] Zeb Decker, DPMallika [address] [place] [address] 08/15/2025 10:40 AM EST Office Visit [facility] [place] [facility] [address] [place] [phone] Mary Grace Rashid MD [address] [place], [place] [phone] 09/09/2025 2:05 PM EST Office Visit [facility] [address] [place] [address] Danika Lovell, COMPANY MARKER-DOUBLE BOTTOM DRIVER [address] [place] [address] documented as of this encounter Visit Diagnoses Not on filedocumented in this encounter Care Teams Explosive Ordnance Specialist Relationship Specialty Start Date End Date Michell France NP PCP - ACO Reach 12/30/22 09/13/24 Mary Grace Rashid MD [address] [place] [address] PCP - General Family Medicine 01/25/23 Mary Grace Rashid MD [address] [place] [address] PCP - ACO Reach 09/14/24 Brooks Jeffery LPN [address] [place] [id number] Licensed Practical Nurse Family Medicine 08/22/24 documented as of this encounter
--- OUTSIDE RECORDS SUMMARY | 2025-05-21 08:01 | XMS_ITS | Encounter Summary ---
Author Organization [facility] tem Address [id number] [address] [place] [address] Care Team Providers Care Drainage Inspector Name Role Phone Mary Grace Rashid MD Primary Care Provider [phone] Encounter Details Date Type Department Care Team (Late st Contact Info) Description 10/23/2024 Orders Only [facility] [address] [place] [phone] External, Scanning Provider Social History Tobacco Use Types Packs/Day Years Used Date Smoking Tobacco: Former Cigarettes 1 20 1 979 - 1998 Smokeless Tobacco: Never Alcohol Use Standard Drinks/Week Comments Yes 0 (1 standard drink = 0.6 oz pur e alcohol) not very often Childcare Answer Date Recorded Childcare Unknown 01/17/2019 Employment Answer Date Recorded Employment Unknown 01/17/2019 Hunger Screening Answer Date Recorded Within the past 12 months we worried whether our food would run out before we got money to buy more. Never True 10/19/2024 Within the past 12 months th e food we bought just didn't last and we didn't have money to get more. Never True 10/19/2024 Purpose - Life Answer Date Recorded Purpose and direction in life Unknown Sex and Gender Information Value Date Recorded Sex Assigned at Male 07/07/2021 6:25 PM EST Legal Sex Male 11:28 AM EDT Gender Identity Male 07/07/2021 6:25 PM EST Sexual Orientation Straight 07/07/2021 6: 25 PM EST documented as of this encounter Plan of Treatment Upcoming Encounters Date Type Department Care Team (Late st Contact Info) Description 06/18/2025 10:40 AM EST Appointment [facility] [place] [address] [place] [address] 07/26/2025 4:15 PM EST Office Visit [facility] [address] [facility] [address] [place] [address] Emiliano Alaniz MD [address] [place] [address] documented as of this encounter Procedures Procedure Name Priority Date/Time Associated Diagnosis Comments ECG 12-LEAD Routine 10/17/2024 3:06 PM EDT XR CHEST 2 VWS Routine 10/17/2024 3:05 PM EDT THYROID PROFILE INCLUDES TSH FT4 Routine 10/17/2024 3:04 PM EDT documented in this encounter Results * ECG 12 lead (10/17/2024 3:06 PM EDT) us Scanning Provider External ECG ORDERABLES Final Result Performing Organization Address City/[facility] Co de Phone Number MANUALLY TRANSCRIBED RESULTS * X-ray chest 2 views (10/17/2024 3:05 PM EDT) Anatomical Region Laterality Modality Body, Chest N/A Computed Radiogr aphy us Scanning Provider External IMG DIAGNOSTIC IMAGIN G ORDERABLES Final Result * Thyroid profile includes TSH FT4 (10/17/2024 3:04 PM EDT) us Scanning Provider External LAB BLOOD ORDERABLES Final Result Performing Organization Address City/[facility]/ZIP Co de Phone Number MANUALLY TRANSCRIBED RESULTS documented in this encounter Visit Diagnoses Not on filedocumented in this encounter Additional Health Concerns Assessment Noted Time A Body Mass Index follow-up plan has been documented for the patient 09/11/2019 9:35 AM EST documented as of this encounter Care Teams Drainage Inspector Relationship Specialty Start Date End Date Mary Grace Rashid MD [address] [place] [address] PCP - General Family Medicine 12/06/24 documented as of this encounter
--- OUTSIDE RECORDS SUMMARY | 2025-05-21 08:01 | XMS_ITS | Encounter Summary ---
Author Organization [facility] Address [address] [place] [address] Care Team Providers Care Scalder Name Role Phone Mary Grace Rashid MD Primary Care Provider [phone] Brooks Jeffery LPN Unavailable [phone] Mary Grace Rashid MD Unavailable Encounter Details Date Type Department Care Team (Latest Contact Info) Description 04/24/2025 Results Follow-Up [facility] [address] [facility] [address] [place] [address] Clau Franklin MD [address] [facility] [address] [place] [address] Dermatopathology exam Social History Tobacco Use Types Packs/Day Years [...] week 02/08/2025 How often do you attend chur or pentecostal services? More than 4 times per year 02/08/2025 Do you belong to any clubs o r organizations such as moravian groups, unions, fraternal or athletic groups, or [...] Recorded Patient Health Questionnaire-2 Score 0 08/17/2024 [facility] ional [facility] - Occupational Stress [...] any time in the past 12 m [facility], were you homeless or living in a mcfp (including now)? No 02/08/2025 Sex and Gender Information Value Date Recorded Sex Assigned at Male 01/26/2023 5:11 PM EDT Legal Sex Male 7:14 PM EDT Gender Identity Male 01/26/2023 5:11 PM EDT Sexual Orientation Straight 01/26/2023 5: 11 PM EDT documented as of this encounter Miscellaneous Notes * Result Encounter Note - Clau Franklin MD - 04/24/2025 12:35 PM EDT Red [employer] message sent regarding benign results documented in this encounter Plan of Treatment Upcoming Encounters Date Type Department Care Team (Late st Contact Info) Description 05/24/2025 9:30 AM EDT Office Visit [facility] [address] [place] [address] Clau Franklin MD [address] [place] [address] 06/05/2025 11:50 AM EDT Telemedicine [facility] [address] [place] [phone] Shikha Rowell MD [address] [place] [address] 07/22/2025 8:30 AM EST Procedure Visit [facility] [address] [place] [phone] Zeb Decker, DPM [address] [place] [address] 08/15/2025 10:40 AM EST [facility] [address] [place] [phone] Mary Grace Rashid MD [address] [place] [address] 09/09/2025 2:05 PM EST Office Visit [facility] [place] [facility] [address] [place] [address] Danika Lovell APRN-GERSON [address] [place] [address] documented as of this encounter Visit Diagnoses Not on filedocumented in this encounter Additional Health Concerns Assessment Noted Time PHQ-9 Depression Total Score: 3 08/16/19 24 10:00 AM EST documented as of this encounter Care Teams Scalder Relationship Specialty Start Date End Date Mary Grace Rashid MD [address] [place], [place] [phone] PCP - General Family Medicine 01/25/23 Mary Grace Rashid MD [address] [place], [place] [phone] PCP - ACO Reach 09/14/24 Brooks Jeffery, JYOTI [address] [place] [address] Licensed Practical Nurse Family Medicine 08/22/24 documented as of this encounter
--- OUTSIDE RECORDS SUMMARY | 2025-05-21 08:01 | XMS_ITS | Encounter Summary ---
Author Organization [address] [facility] Address [id number] [address] [place] [address] Care Team Providers Care Biztalk Architect Name Role Phone Mary Grace Rashid MD Primary Care Provider [phone] Reason for Visit * Reason Onset Date Comments Atrial Fibrillation 10/08/2024 Encounter Details Date Type Department Care Team (Late st Contact Info) Description 10/08/2024 [facility] [address] [place] [phone] Kari Barajas LPN Atrial Fibrillation Social History Tobacco Use Types Packs/Day Years [...] got money to buy more. Never True 11/16/2023 Within the past 12 months th e food we bought just didn't last and we didn't have money to get more. Never True 11/16/2023 Purpose - Life Answer Date Recorded Purpose and direction in life Unknown Sex and Gender Information Value Date Recorded Sex Assigned at Male 07/07/2021 6:25 PM EST Legal Sex Male 11:28 AM EDT Gender Identity Male 07/07/2021 6:25 PM EST Sexual Orientation Straight 07/07/2021 6: 25 PM EST documented as of this encounter Miscellaneous Notes * Telephone Encounter - Kari Barajas LPN - 10/08/2024 1:32 PM EST calls pt was recently started on Metoprolol and Methimazole per his erp implementation consultant for thyroid issues - states they have a [email or web address] and it looks like pt has gone back to at fib- pt istaking his Eliquis Is scheduled for appt with you 11/07/24 * Telephone Encounter - Emiliano Alaniz MD - 10/08/2024 1:32 PM EST Would have patient call back end of week to see if still in AF, if so may need cardioversion. Also,I don't see any thyroid labs in our system, they must follow a non-[facility] erp implementation consultant, please have them send in recent thyroid lab work * Telephone Encounter - Kari Barajas LPN - 10/08/2024 1:32 PM EST Images from the original note were not included. * Telephone Encounter - Kari Barajas LPN - 10/08/2024 1:32 PM EST Images from the original note were not included. * Telephone Encounter - Emiliano Alaniz MD - 10/08/2024 1:32 PM EST Ah I saw those but they were from more than 1 month ago, anything more recent? Do we know when theywill recheck his thyroid levels? I would not cardiovert him until his TSH has normalized. * Telephone Encounter - Kari Barajas LPN - 10/08/2024 1:32 PM EST Spoke with , she states she does not know when they are rechecking his labs- he has an appt 11/21/24- she has reached out to Dr Shikha Rowell to see if they are going to recheck * Telephone Encounter - Keli Hines RN - 10/08/2024 1:32 PM EST returned call. Spoke w/ endocrine office. States labs will be rechecked after being on Methimazole for 4 wks. Which will be 10/17/24 and have labs drawn then. States stopped metoprolol 10/08/24 c/o severe fatigue. Sleeping all the time. BP today is 100/77 HR [address] [employer] Will message [address] Alaniz for advice * Telephone Encounter - Emiliano Alaniz MD - 10/08/2024 1:32 PM EST We did not start metoprolol, endocrinology did. Will defer to them regarding medication. Meanwhile,should await labs from 10/17/24 to ensure euthyroid state. Given AF w/ RVR, should start diltiazem 180 mg qday for rate control, short term, ok to provide 30d prescription. * Telephone Encounter - Keli Hines RN - 10/08/2024 1:32 PM EST Response called to . * Telephone Encounter - Emiliano Alaniz MD - 10/08/2024 1:32 PM EST Prescription signed. * Telephone Encounter - Gaudencio Obrien RN - 10/08/2024 1:32 PM EST P/c from pts . She states they have been hesitant on starting diltiazem d/t pts fatigue and lower BP reading. Today BP is 104/88, HR 114. Pt denies any LH/dizziness. Retail Coverage Merchandiser Lead recommends pt start diltiazem for heart rate control and keep pt hydrated. She states since pt starting new thyroid meds and hx of Alzheimers, pts taste buds have changed and he doesn't prefer much to drink. She will keep our office updated and have pt report to ER for any worsening symptoms. documented in this encounter Plan of Treatment Upcoming Encounters Date Type Department Care Team (Late st Contact Info) Description 06/18/2025 10:40 AM EST Appointment [facility] [place] [address] [place] [address] 07/26/2025 4:15 PM EST Office Visit [facility] [address] [facility] [address] [place] [address] Emiliaon Alaniz MD [address] [place] [address] documented as of this encounter Visit Diagnoses Not on filedocumented in this encounter Additional Health Concerns Assessment Noted Time A Body Mass Index follow-up plan has been documented for the patient 09/11/2019 9:35 AM EST documented as of this encounter Care Teams Biztalk Architect Relationship Specialty Start Date End Date Mary Grace Rashid MD [address] [place] [address] PCP - General Family Medicine 12/06/24 documented as of this encounter
--- OUTSIDE RECORDS SUMMARY | 2025-05-21 08:02 | XMS_ITS | Encounter Summary ---
Author Organization [facility] Address [address] [facility] [facility] [place] [address] Care Team Providers Care Tilt Wall Supervisor Name Role Phone Mary Grace Rashid MD Primary Care Provider [phone] Brooks Jeffery LPN Unavailable [phone] Mary Grace Rashid MD Unavailable Encounter Details Date Type Department Care Team (Late st Contact Info) Description 11/23/2024 Orders Only [facility] [address] [place] [address] Mary Grace Rashid MD [address] [place] [address] Benign prostatic hyperplasia, unspecified whether lower urinary tract symptoms present Social History Tobacco Use Types Packs/Day Years [...] 01/25/2023 How often do you attend chur or mormon services? Never 01/25/2023 Do you belong to any clubs o r organizations such as alevism groups, unions, fraternal or athletic groups, or [...] Recorded Patient Health Questionnaire-2 Score 0 08/17/2024 [facility]at ional Health - Occupational Stress [...] place to sleep or slept in a long-term (including now)? No 01/25/2023 Sex and Gender [...] Dermatology [address] [place] [address] Clau Franklin MD [address] [place] [address] 06/05/2025 11:50 AM EDT Telemedicine [facility] [address] [place] [phone] Shikha Rowell MD [address] [place] [address] 07/22/2025 8:30 AM EST [facility] [address] [place] [phone] Zeb Decker DPM [address] [place] [address] 08/15/2025 10:40 AM EST [facility] [address] [place] [address] Mary Grace Rashid MD [address] [place], [place] [phone] 09/09/2025 2:05 PM EST Office Visit [facility] [address] [place] [phone] Danika Lovell APRN-ELECTROCARDIOGRAPHIC TECHNICIAN [address] [place] [address] documented as of this encounter Procedures Procedure Name Priority Date/Time Associated Diagnosis Comments AMB REFERRAL TO UROLOGY Routine 11/23/2024 6:03 AM EDT Benign prostatic hyperplasia, unspecified whether lower urinary tract symptoms present documented in this encounter Results * Ambulatory referral to Urology (11/23/2024 6:03 AM EDT) Mary Grace Rashid MD OUTPATIENT REFERRAL ORDERABLES F inal Result documented in this encounter Visit Diagnoses Diagnosis Benign prostatic hyperplasia, unspecified whether lower urinary tract symptoms present documented in this encounter Additional Health Concerns Assessment Noted Time PHQ-9 Depression Total Score: 3 08/16/19 24 10:00 AM EST documented as of this encounter Care Teams Tilt Wall Supervisor Relationship Specialty Start Date End Date Mary Grace Rashid MD [address] [place], [place] [phone] PCP - General Family Medicine 01/25/23 Mary Grace Rashid MD [address] [place], [place] [address] PCP - ACO Reach 09/14/24 Brooks Jeffery, JYOTI [address] [place] [address] Licensed Practical Nurse Family Medicine 08/22/24 documented as of this encounter
--- OUTSIDE RECORDS SUMMARY | 2025-05-21 08:02 | XMS_ITS | Encounter Summary ---
[facility] Organization [id number] [place] [address] Care Team Providers Care Monologist Name Role Phone Mary Grace Rashid MD Primary Care Provider [phone] Encounter Details Date Type Department Care Team (Late st Contact Info) Description 08/11/2022 Telephone [facility] [address] [place] [phone] Gaudencio Obrien RN Social History Tobacco Use Types Packs/Day Years Used Date Smoking Tobacco: Former Cigarettes 1 20 1 979 - 1998 Smokeless Tobacco: Never Alcohol Use Standard Drinks/Week Comments Yes 0 (1 standard drink = 0.6 oz pur e alcohol) not very often Childcare Answer Date Recorded Childcare Unknown 01/17/2019 Employment Answer Date Recorded Employment Unknown 01/17/2019 Purpose - Life Answer Date Recorded Purpose and direction in life Unknown Sex and Gender Information Value Date Recorded Sex Assigned at Male 07/07/2021 6:25 PM EST Legal Sex Male 11:28 AM EDT Gender Identity Male 07/07/2021 6:25 PM EST Sexual Orientation Straight 07/07/2021 6: 25 PM EST COVID-19 Exposure Response Date Recorded In the last month, have you been in contact with someone who was confirmed or suspected to have Coronavirus / COVID-19? No / Unsure 08/11/2022 10:59 AM EST documented as of this encounter Miscellaneous Notes * Telephone Encounter - Gaudencio Obrien RN - 08/11/2022 9:09 AM EST ----- Message from Emiliano Alaniz MD sent at 08/11/2022 7:03 AM EST ----- Pt will undergo cryoballoon PVI with me today. Please arrange for 1 week RN visit for groin check, and 3 month RV with me at [facility], thanks! documented in this encounter Plan of Treatment Upcoming Encounters Date Type Department Care Team (Late st Contact Info) Description 06/18/2025 10:40 AM EST Appointment [facility] [place] [address] [place] [phone] 07/26/2025 4:15 PM EST Office Visit [facility] [address] [facility] [address] [phone] Emiliano Alaniz MD [address] [place] [phone] documented as of this encounter Visit Diagnoses Not on filedocumented in this encounter Additional Health Concerns Assessment Noted Time A Body Mass Index follow-up plan has been documented for the patient 09/11/2019 9:35 AM EST documented as of this encounter Care Teams Monologist Relationship Specialty Start Date End Date Mary Grace Rashid MD [address] [place] [address] PCP - General Family Medicine 12/06/24 documented as of this encounter
--- OUTSIDE RECORDS SUMMARY | 2025-05-21 08:02 | XMS_ITS | Encounter Summary ---
Author Organization [facility] Address [address] [facility] [place] [address] Care Team Providers Care Radio Repair Teacher Name Role Phone Mary Grace Rashid MD Primary Care Provider [phone] Brooks Jeffery LPN Unavailable [phone] Mary Grace Rashid MD Unavailable Encounter Details Date Type Department Care Team (Late st Contact Info) Description 12/19/2024 Orders Only [facility] Family Medicine [address] [place] [address] Mary Grace Rashid MD [address] [place] [address] Social History Tobacco Use Types Packs/Day Years [...] material from your doctor or pharmacy? Sometimes 11/29/2024 Humiliation, Afraid, Rape, and Kick questionnair e Answer Date Recorded Within the last year, have y ou been afraid of your partner or ex-partner? No 11/29/2024 Within the last year, have y ou been humiliated or emotionally abused in other ways by your partner or ex-partner? No Within the last year, have y ou been kicked, hit, slapped, or otherwise physically hurt by your partner or ex-partner? No 11/29/2024 Within the last year, have y ou been raped or forced to have any kind of sexual activity by your partner or ex-partner? No 11/29/2024 Social Connection and Isolation Panel Answer Date Recorded In a typical week, how many times do you talk on the phone with family, friends, or neighbors? Twice a week 11/29/2024 How often do you get togethe r with friends or relatives? Twice a week 11/29/2024 How often do you attend chur or oriental orthodox services? More than 4 times per year 11/29/2024 Do you belong to any clubs o r organizations such as episcopalian groups, unions, fraternal or athletic groups, or school groups? Yes 11/29/2024 How often do you attend meet ings of the clubs or organizations you belong to? Never 11/29/2024 Are you , , di vorced, , never , or living with a partner? 11/29/2024 AUDIT-C Answer Date Recorded Q1: How often do you have a drink containing alcohol? Never 11/29/2024 Q2: How many drinks containi ng alcohol do you have on a typical day when you are drinking? Patient does not drink Q3: How often do you have si x or more drinks on one occasion? Never 11/29/2024 Overall Financial Resource Strain (CARDIA) Answe r Date Recorded How hard is it for you to pa y for the very basics like food, housing, medical care, and heating? Not hard at all 11/29/2024 PHQ-2 Answer Date Recorded Patient Health Questionnaire-2 Score 0 08/17/2024 [facility]ational Stress Questionnaire Answer Date Recorded Do you feel stress - tense, restless, nervous, or anxious, or unable to sleep at night because your mind is troubled all the time - these days? Not at all 11/29/2024 Exercise Vital Sign Answer Date Recorde d On average, how many days pe r week do you engage in moderate to strenuous exercise (like a brisk walk)? 0 days 11/29/2024 On average, how many minutes do you engage in exercise at this level? 0 min 11/29/2024 Hunger Vital Sign Answer Date Recorded Within the past 12 months, y ou worried that your food would run out before you got the money to buy more. Never true 11/30/19 25 Within the past 12 months, t he food you bought just didn't last and you didn't have money to get more. Never true 11/29/2024 PRAPARE - Transportation Answer Date Re corded In the past 12 months, has l ack of transportation kept you from medical appointments or from getting medications? No 11/07 In the past 12 months, has l ack of transportation kept you from meetings, work, or from getting things needed for daily living? No 11/29/2024 Housing Stability Vital Sign Answer Song e [...] in a long-term (including now)? No 01/25/2023 Housing Stability Vital Sign Answer Song e Recorded In the last 12 months, was t here a time when you were not able to pay the mortgage or rent on time? No 11/29/2024 In the past 12 months, how m any times have you moved where you were living? 0 11/29/2024 At any time in the past [address] [facility], were you homeless or living in a long-term (including now)? No 11/29/2024 Sex and Gender Information Value Date Recorded [...] Dermatology [address] [place] [phone] Clau Franklin MD [address] [place] [address] 06/05/2025 11:50 AM EDT [facility] [address] [place] [address] Shikha Rowell MD [address] [place] [address] 07/22/2025 8:30 AM EST Procedure Visit [facility] [address] [place] [phone] Zeb Decker, DPM [address] [place] [address] 08/15/2025 10:40 AM EST Office [facility] [address] [place] [phone] Mary Grace Rashid MD [address] [place], [place] [phone] 09/09/2025 2:05 PM EST Office Visit [facility] [place] [facility] [address] [place] [phone] Danika Lovell, TECHNOLOGY AND ENGINEERING TEACHER-STREET COMMISSIONER [address] [place] [address] documented as of this encounter Procedures Procedure Name Priority Date/Time Associated Diagnosis Comments HM COLONOSCOPY Routine 12/19/2024 2:17 PM EDT documented in this encounter Results * Hm Colonoscopy (12/19/2024 2:17 PM EDT) Anatomical Region Laterality Modality Other Mary Grace Rashid MD HEALTH MAINTENANCE Final Result documented in this encounter Visit Diagnoses Not on filedocumented in this encounter Additional Health Concerns Assessment Noted Time PHQ-9 Depression Total Score: 3 08/16/19 24 10:00 AM EST documented as of this encounter Care Teams Radio Repair Teacher Relationship Specialty Start Date End Date Mary Grace Rashid MD [address] [place] [address] PCP - General Family Medicine 01/25/23 Mary Grace Rashid MD [address] [place], [place] [phone] PCP - ACO Reach 09/14/24 Brooks Jeffery, JYOTI [address] [place] [address] Licensed Practical Nurse Family Medicine 08/22/24 documented as of this encounter
--- OUTSIDE RECORDS SUMMARY | 2025-05-21 08:02 | XMS_ITS | Encounter Summary ---
Author Organization [facility] Address [address] [place] [address] Care Team Providers Care Plating Stripper Name Role Phone Mary Grace Rashid MD Primary Care Provider [phone] Brooks Jeffery LPN Unavailable [phone] Mary Grace Rashid MD Unavailable Encounter Details Date Type Department Care Team (Late st Contact Info) Description 05/20/2025 Clinisync Result Encounter [facility] External Department Unsolicited Provider, Generic External Data Social History Tobacco Use Types Packs/Day Years [...] How often do you attend chur or shinto services? More than 4 times per year 02/08/2025 Do you belong to any clubs o r organizations such as voodoo groups, unions, fraternal or athletic groups, or [...] Recorded Patient Health Questionnaire-2 Score 0 08/17/2024 [facility] - [...] place to sleep or slept in a alf (including now)? No 01/25/2023 Housing Stability Vital Sign Answer Song e Recorded In the last 12 months, was t here a time when you were not able to pay the mortgage or rent on time? No 02/08/2025 In the past 12 months, how m any times have you moved where you were living? 0 02/08/2025 At any time in the past 12 m ont, were you homeless or living in a alf (including now)? No 02/08/2025 Sex and Gender [...] Dermatology [address] [place] [phone] Clau Franklin MD [address] [place] [address] 06/05/2025 11:50 AM EDT [facility]medicine [facility] [address] [place] [address] Shikha Rowell MD [address] [place] [address] 07/22/2025 8:30 AM EST Procedure Visit [facility] [address] [place] [phone] Zeb Decker, DPM [address] [place], [place] [phone] 08/15/2025 10:40 AM EST Office Visit [facility] Family Medicine [address] [place] [phone] Mary Grace Rashid MD [address] [place], [place] [phone] 09/09/2025 2:05 PM EST [facility] [address] [place] [address] Danika Lovell, CHIEF LOAD DISPATCHER-PRODUCTION ASSEMBLER [address] [place], [place] [phone] documented as of this encounter Procedures Procedure Name Priority Date/Time Associated Diagnosis Comments [facility] PROTHROMBIN TIME INR W/O COUM Routine 05/20/2025 11:39 AM EDT [facility] APTT Routine 05/20/2025 11:39 AM EDT documented in this encounter Results * (ABNORMAL) [facility] APTT (05/20/2025 11:39 AM EDT) [facility] Signature PARTIAL THROMBOPLASTIN TIME 37.5(H) 22.3 - 36.2 sec [facility] 05/20/2025 11:3 9 AM EDT 05/20/2025 11:41 AM EDT Narrative [facility] - 05/20/2025 12:40 PM EDT Generic External Data Provider [facility] F inal Result Performing Organization Address [facility] de Phone Number [facility] * [facility] PROTHROMBIN TIME INR W/O COUM (05/20/2025 11:39 AM EDT) PROTHROMBIN TIME 11.3 9.0 - 11.6 sec [facility] INR 1.07 [facility] Comment: DESIRED INR: 2.0-3.0 CONDITIONS NOT LISTED BELOW 2.5-3.5 FOR PROSTHETIC HEART VALVE REPLACEMENT 2.5-3.5 RECURRENT THROMBOSIS 05/20/2025 11:3 9 AM EDT 05/20/2025 11:41 AM EDT Narrative [facility] - 05/20/2025 12:40 PM EDT Generic External Data Provider [facility] F inal Result Performing Organization Address [facility] de Phone Number [facility] documented in this encounter Visit Diagnoses Not on filedocumented in this encounter Additional Health Concerns Assessment Noted Time PHQ-9 Depression Total Score: 3 08/16/19 24 10:00 AM EST documented as of this encounter Care Teams Plating Stripper Relationship Specialty Start Date End Date Mary Grace Rashid MD [address] [place] [address] PCP - General Family Medicine 01/25/23 Mary Grace Rashid MD [address] [place] [address] PCP - ACO Reach 09/14/24 Brooks Jeffery LPN [address] [place] [phone] Licensed Practical Nurse Family Medicine 08/22/24 documented as of this encounter
--- OUTSIDE RECORDS SUMMARY | 2025-05-21 08:02 | XMS_ITS | Clinical Summary ---
Author Organization [employer] [facility] Address [id number] 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 Active finasteride (PROSCAR) 5 mg tablet Take 1 tablet (5 mg total) by mouth in the morning. Active methIMAzole (TAPAZOLE) 5 mg tablet Take 1 tablet (5 mg total) by mouth in the morning and 1 tablet (5 mg total) before bedtime. Active dilTIAZem XR (DILACOR XR) 180 MG 24 hr capsule Take 1 capsule (180 mg total) by mouth in the morning. 90 capsule 3 11/08/19 25 026 Active apixaban (ELIQUIS) 5 mg tablet Take 1 tablet (5 mg total) by mouth in the morning and 1 tablet (5 mg total) before bedtime. TAKE 1 TABLET BY MOUTH TWICE A DAY. 60 tablet 8 01/02/20 25 Active furosemide (LASIX) 20 mg tabletIndications: Lower extremity aneurysm Take 1 tablet (20 mg total) by mouth as needed (LOWER EXTREMITY SWELLING). 180 tablet 3 03/18/20 25 Active ondansetron ODT (ZOFRAN ODT) 4 mg disintegrating tablet Dissolve 1 tablet (4 mg total) on tongue every 8 (eight) hours as needed for nausea for up to 10 doses. 10 tablet 03/29/20 Active atorvastatin (LIPITOR) 20 mg tablet Take 1 tablet (20 mg total) by mouth in the morning. 12/01/19 025 Discontin ued(Thera py completed ) Active Problems Problem Noted Date Diagnosed Date Pre-op evaluation 10/19/2024 Longstanding persistent atrial fibrillation 05/08 Overview (05/24/2022): Added automatically from request for surgery [id number] Paroxysmal atrial fibrillation 06/01/2021 Mixed hyperlipidemia 06/01/2021 Shortness of breath 06/01/2021 Adenomatous polyp of transverse colon 09/11/2019 Rectal bleeding 08/30/2019 Hx of adenomatous colonic polyps 08/30/2019 Encounters Date Type Department Care Team Description 05/10/2025 10:00 AM EDT Clinical Support [facility] [address] [place] [address] Longstanding persistent atrial fibrillation (CMS-HCC) (Primary Dx); Rectal bleeding 05/10/2025 Travel 05/02/2025 1:45 PM EDT Anesthesia Event [facility] [place] [address] [place] [address] Jose Shirley MD 05/02/2025 1:30 PM EDT - 05/02/2025 3:30 PM EDT Surgery [facility] [place] [address] [place] [address] Emiliano Alaniz MD Watchman Implant with ICE - BSI, ICE [05302 (CPT )] 05/02/2025 11:45 AM EDT - 05/02/2025 6:58 PM EDT Hospital Encounter [facility] CVU-IVU [address] [place] [address] Emiliano Alaniz MD Paroxysmal atrial fibrillation (CMS-HCC) (Primary Dx); Longstanding persistent atrial fibrillation (CMS-HCC); Rectal bleeding Discharge Disposition: Home 05/02/2025 Travel 05/01/2025 Telephone [facility] [address] [place] [phone] Felicity Johnson RN 04/25/2025 Results Follow-Up [facility] [address] [place] [address] Fanny Ambrose, JOHAN Basic Metabolic Panel, Magnesium, CBC auto differential 04/25/2025 Telephone [facility] [address] [place] [phone] Lakeisha Tai RN 04/23/2025 9:15 AM EDT - 04/23/2025 11:59 PM EDT Hospital Encounter [facility] [address] [place] [address] Ureteral stone with hydronephrosis Discharge Disposition: Home 04/23/2025 Travel 04/12/2025 11:40 AM EDT - 04/12/2025 11:59 PM EDT Hospital Encounter [facility] [address] [place] [address] Kidney stones Discharge Disposition: Home 04/12/2025 Travel 03/31/2025 Results Follow-Up [facility] Emergency [address] [place] [address] Anastasiya Magana, JOHAN Urine Culture Urine, Clean Catch Midstream 03/29/2025 9:04 AM EDT - 03/29/2025 11:20 AM EDT Emergency [facility] [address] [place] [address] Paco Hill MD Right ureteral stone (Primary Dx) Discharge Disposition: Home 03/29/2025 Travel 03/18/2025 10:15 AM EDT Office Visit [facility] [address] [place] [phone] Gabrielle Alvarado MD Lower extremity aneurysm (Primary Dx) 03/18/2025 Travel 02/19/2025 Travel 02/18/2025 Telephone [facility] [address] [place] [address] Nay Levy LPN EP Surgery (PT Education) from Last 3 Months Immunizations Immunization Administration Dates Next Due COVID-19, mRNA, LNP-S, PF, 100mcg/0.5mL Dose 11/2020,09/11/2020 Family History Medical History Relation Name Comments Arthritis Father Eulogio Stroke Father Eulogio Arthritis Mother Milka Heart disease Mother Milka Stroke Mother Milka Breast cancer Sister Rebecca Colon cancer Sister Rebecca Relation Name Status Comments Father Eulogio (Age 90) Maternal Grandfather Maternal Grandmother Mother Milka (Age 89) Paternal Grandfather Paternal Grandmother Sister Rebecca (Age 65) Social History Tobacco Use Types Packs/Day Years Used Date Smoking Tobacco: Former Cigarettes 1 34 0 08/08/1964 - 1998 Smokeless Tobacco: Never Tobacco Cessation:Counseling Given: Not Answered Alcohol Use Standard Drinks/Week Comments Yes 0 [...] Orientation Straight 07/07/2021 6: 25 PM EST Last Filed Vital Signs Vital Sign Reading Time Taken Comments Blood Pressure 136/77 05/02/2025 6:00 PM EDT Pulse 66 05/02/2025 6:00 PM EDT Temperature 36 C (96.8 F) 05/02/2025 3:32 PM EDT Respiratory Rate 14 05/02/2025 6:00 PM EDT Oxygen Saturation 96% 05/02/2025 6:00 PM EDT Inhaled Oxygen Concentration - - Weight 90.7 kg (200 lb) 05/02/2025 12:29 PM EDT Height 188 cm (6' 2 ) 05/02/2025 12:29 PM EDT Body Mass Index 25.68 05/02/2025 12:29 PM EDT Plan of Treatment Upcoming Encounters Date Type Department Care Team (Late st Contact Info) Description 06/18/2025 10:40 AM EST Appointment [facility] [place] [address] [place] [address] 07/26/2025 4:15 PM EST [facility] [address] [place] [phone] Emiliano Alaniz MD [address] [place] [address] Health Maintenance Due Date Last Done Comments Depression Screening 1957 Abdominal Aortic Aneurysm (A AA) Screen 2010 Fall Risk Screening 2010 DTaP,Tdap and Td Vaccines (4 - Td or Tdap) 05/11/2020 05/11/2010, 05/11/2010, 05/11/2010 COVID-19 Vaccine (4 - 2024-2 6 season) 2025 08/12/2021, 10/09/2020, 09/11/2020 Influenza Vaccine 04/08/2025 06/15/2024, , 05/17/2022, Additional history exists Tobacco Screening 05/02/2026 05/02/2025 Zoster (Shingles) Vaccine Completed 2022, 02/01/2023, 11/25/2012, Additional history exists Colonoscopy Discontinued 12/19/2024, 12/06, 12/19/2024, Additional history exists Medical Devices Implanted Type Area Morning Show Host Device Identifier Shelf Expiration Date Model / Serial / Lot Lens Iol Ultrasert 18.5d - [id number] - [id number] Implanted:Q ty: 1 on 04/25/2018 by Aracelis Auguste MD at [facility] Lens Left: [employer] 01/05/2021 AU00T0 18.5 / [id number] / NA Lens Iol Ultrasert 19.0d - [id number] - [id number] Implanted:Q ty: 1 on 05/09/2018 by Aracelis Auguste MD at [facility] Lens Right: Eye [employer] 02/04/2021 AU00T0 19.0 / [id number] / N/A Watchman Flx Pro Rangel Clsr 27mm Us - [id number] Implanted:Q ty: 1 on 05/02/2025 by Emiliano Alaniz MD at [facility] Other Implant [employer] [id number] 02/19/2028 [id number] / / [id number] Watchman Flx Pro Prd Device - [id number] Implanted:Q ty: 1 on 05/02/2025 by Emiliano Alaniz MD at [facility] Other Implant [employer] [id number] / / Procedures Procedure Name Priority Date/Time Associated Diagnosis Comments WATCHMAN Routine 05/02/2025 3:25 PM EDT Longstanding persistent atrial fibrillation (CMS-HCC) Rectal bleeding EP INVASIVE Routine 05/02/2025 3:25 PM EDT Longstanding persistent atrial fibrillation (CMS-HCC) Rectal bleeding HEMOCHRON ACT Routine 05/02/2025 3:06 PM EDT HEMOCHRON ACT Routine 05/02/2025 2:47 PM EDT ECG 12-LEAD Routine 05/02/2025 12:49 PM EDT CBC WITH AUTO DIFFERENTIAL Routine 04/25/2025 10:15 AM EDT Longstanding persistent atrial fibrillation (CMS-HCC) Rectal bleeding MAGNESIUM Routine 04/25/2025 10:15 AM EDT Longstanding persistent atrial fibrillation (CMS-HCC) Rectal bleeding BASIC METABOLIC PANEL Routine 04/25/2025 10:15 AM EDT Longstanding persistent atrial fibrillation (CMS-HCC) Rectal bleeding XR UROGRAPHY IVP W OR WO TOMOS Routine 04/23/2025 10:20 AM EDT Ureteral stone with hydronephrosis XR ABDOMEN AP 1 VW Routine 04/12/2025 12 :07 PM EDT Kidney stones POCT NURSING URINE MACROSCOPIC UA Routine 03/29/2025 10:37 AM EDT ER EXTRA URINE CULTURE STAT 03/29/2025 10:29 AM EDT ER EXTRA URINE STAT 03/29/2025 10:29 AM EDT URINE CULTURE STAT 03/29/2025 10:29 AM EDT TROP I, HIGH SENSITIVITY 1 HOUR STAT 03/29/2025 10:26 AM EDT ER EXTRA URINE MARBLE STAT 03/29/2025 10:[address] LUMBAR SPINE WO CONT STAT 03/29/2025 10:[address] ABDOMEN AND PELVIS WO CONT STAT 03/29/2025 10:[address] CHEST WO CONT STAT 03/29/2025 10:[address] FACIAL BONES WO CONT STAT 03/29/2025 9:[address] BRAIN WO CONT STAT 03/29/2025 9:59 AM EDT ECG 12-LEAD STAT 03/29/2025 9:28 AM EDT TROPONIN I, HIGH SENSITIVITY 0 HOUR STAT 03/29/2025 9:21 AM EDT TROPONIN I, HIGH SENSITIVITY 0 HOUR STAT 03/29/2025 9:21 AM EDT LIPASE STAT 03/29/2025 9:21 AM EDT COMPREHENSIVE METABOLIC PANEL STAT 03/29/2025 9:21 AM EDT APTT STAT 03/29/2025 9:21 AM EDT PROTIME & INR STAT 03/29/2025 9:21 AM EDT CBC WITH AUTO DIFFERENTIAL STAT 03/29/2025 9:21 AM EDT T3, FREE Routine 02/19/2025 10:37 AM EDT Thyrotoxicosis, unspecified without thyrotoxic crisis or storm THYROID PROFILE INCLUDES TSH FT4 Routine 02/19/2025 10:37 AM EDT Thyrotoxicosis, unspecified without thyrotoxic crisis or storm PROVATION COLONOSCOPY Routine 12/19/2024 7:58 AM EDT from Last 3 Months or Most Recently Relevant to Health Maintenance Results * EP INVASIVE (05/02/2025 3:25 PM EDT) Narrative TONG - 05/02/2025 3:26 PM EDT Successful implantation of a 27 mm Watchman [...] notes for details. INDICATION FOR PROCEDURE: Briefly, Mauro Garcia is a 80 y.o. year old male with PMH dementia, hyperthyroidism, Meniere's disease, HTN, long-standing persistent AF w/ [id number] 3 on apixaban 5 mg BID, s/p [...] the pigtail catheter for sizing of the RANGEL os. The Watchman delivery sheath was advanced into the left atrial appendage. The dimensions of the RANGEL were then confirmed via multiple projections on ICE. A 27 mm Watchman FLX Pro device was then delivered into the left atrial appendage. Tug testing confirmed stable positioning. PASS criteria (positioning, anchoring, size, and seal) was assessed via a combination of doppler ICE and fluoroscopy. Compression of the device was measured to be 16- 27%. Device was then released. Catheters and sheaths [...] scheduled in 6 weeks to evaluate for lidia- device leaks and device related thrombus, if none seen, can discontinue anticoagulation and start clopidogrel 75 mg daily along with ASA 81 mg daily for 4.5 months after imaging 5. No heavy lifting greater than 30 pounds for 1 week 6. He has groin check scheduled 05/10/25, and return visit with me 07/26/25 at [place]. Emiliano Alaniz MD/PORTIA, FAC, RS Cardiac Electrophysiology us Emiliano Alaniz MD CV ELECTROPHYSIOLOGY ORDERABLES Final Result TONG * ERICH (05/02/2025 3:25 PM EDT) Anatomical Region Laterality Modality Cardiac Electrop hysiology Narrative 05/02/2025 3:26 PM EDT Successful implantation of a 27 mm Watchman [...] notes for details. INDICATION FOR PROCEDURE: Briefly, Mauro Garcia is a 80 y.o. year old male with PMH dementia, hyperthyroidism, Meniere's disease, HTN, long-standing persistent AF w/ [id number] 3 on apixaban 5 mg BID, s/p [...] catheter was advanced into the RA. A [employer] system with a pigtail wire and sheath [...] the pigtail catheter for sizing of the RANGEL os. The Watchman delivery sheath was advanced into the left atrial appendage. The dimensions of the RANGEL were then confirmed via multiple projections on ICE. A 27 mm Watchman FLX Pro device was then delivered into the left atrial appendage. Tug testing confirmed stable positioning. PASS criteria (positioning, anchoring, size, and seal) was assessed via a combination of doppler ICE and fluoroscopy. Compression of the device was measured to be 16- 27%. Device was then released. Catheters and sheaths [...] scheduled in 6 weeks to evaluate for lidia- device leaks and device related thrombus, if none seen, can discontinue anticoagulation and start clopidogrel 75 mg daily along with ASA 81 mg daily for 4.5 months after imaging 5. No heavy lifting greater than 30 pounds for 1 week 6. He has groin check scheduled 05/10/25, and return visit with la 07/26/25 at [place]. Emiliano Alaniz MD/PORTIA, FAC, [facility] Cardiac Electrophysiology us Emiliano Alaniz MD CV CARDIAC CATH ORDERABLES Final Result * (ABNORMAL) Hemochron ACT (05/02/2025 3:06 PM EDT) Only the most recent of2 resultswithin the time period is included. [employer] Signature Activated Clotting Time 262(H) 96 - 152 s 05/02/2025 3:16 PM EDT [facility] Blood Venous blood / Unknown 05/02/2025 3:06 PM EDT 05/02/2025 3:16 PM EDT Narrative [facility] - 05/02/2025 3:16 PM EDT This test is used to monitor heparin levels us Emiliano Alaniz MD LAB BLOOD ORDERABLES Final Resul t [facility] [address] [place] [address], [place] * ECG 12 lead (05/02/2025 12:49 PM EDT) Only the most recent of2 resultswithin the time period is included. 05/02/2025 12:4 9 PM EDT Narrative [facility] - 05/02/2025 1:59 PM EDT us Emiliano Alaniz MD ECG ORDERABLES Final Result Performing Organization Address City/[facility]/ZIP Co de Phone Number [facility] * (ABNORMAL) CBC auto differential (04/25/2025 10:15 AM EDT) Only the most recent of2 resultswithin the time period is included. [facility] WBC 5.5 4 - 11 x10E9/L 04/25/2025 1:24 PM EDT [facility] RBC Count 4.50 4.1 - 5.7 X10E12/L 04/25/2025 1:24 PM EDT [facility] Hemoglobin 12.6(L) 13 - 17 g/dL 04/25/2025 1:24 PM EDT [facility] Hematocrit 38.1(L) 39 - 50 % 04/25/2025 1:24 PM EDT [facility] MCV 85 80 - 100 fL 04/25/2025 1:24 PM EDT [facility] MCH 28.0 27 - 34 pg 04/25/2025 1:24 PM EDT [facility] MCHC 33.2 32 - 36 g/dL 04/25/2025 1:24 PM EDT [facility] RDW 14.9 11.5 - 15 % 04/25/2025 1:24 PM EDT [facility] Platelet Count 245 150 - 450 X10E9/L 04/25/2025 1:24 PM EDT [facility] MPV 7.2 7 - 12 fL 04/25/2025 1:24 PM EDT [facility] Neutrophils % 68.1 % 04/25/2025 1:24 PM EDT [facility] Lymphocytes % 18.4 % 04/25/2025 1:24 PM EDT [facility] Monocytes % 6.6 % 04/25/2025 1:24 PM EDT [facility] Eosinophils % 5.6 % 04/25/2025 1:24 PM EDT [facility] Basophils % 1.3 % 04/25/2025 1:24 PM EDT [facility] Neutrophils Absolute (A) 3.7 1.5 - 6.6 10*3/uL 04/25/2025 1:24 PM EDT [facility] Lymphocytes Absolute 1.0 1.0 - 3.5 10*3/uL 04/25/2025 1:24 PM EDT [facility] Monocytes Absolute 0.4 0.0 - 0.9 10*3/uL 04/25/2025 1:24 PM EDT [facility] Eosinophils Absolute 0.3 0.0 - 0.4 10*3/uL 04/25/2025 1:24 PM EDT [facility] Basophils Absolute 0.1 0.0 - 0.2 10*3/uL 04/25/2025 1:24 PM EDT [facility] Differential Type AUTOMATED DIFFERENTIAL 04/25/2025 1:24 PM EDT [facility] Blood Venous blood / Unknown Venipuncture / Unknown 04/25/2025 10:15 AM EDT 04/25/2025 10:15 AM EDT us Emiliano Alaniz MD LAB BLOOD ORDERABLES Final Resul t Performing Organization Address City/[facility]/ZIP Co de Phone Number [facility] [address] [place] [address], [place] [phone] * Magnesium (04/25/2025 10:15 AM EDT) MAGNESIUM 2.1 1.8 - 2.6 mg/dL 04/25/2025 1:47 PM EDT [facility] Blood Venous blood / Unknown Venipuncture / Unknown 04/25/2025 10:15 AM EDT 04/25/2025 10:15 AM EDT us Emiliano Alaniz MD LAB BLOOD ORDERABLES Final Resul t Performing Organization Address [facility] Co de Phone Number [facility] [address] [place] [address], [place] [phone] * (ABNORMAL) Basic Metabolic Panel (04/25/2025 10:15 AM EDT) SODIUM 142 134 - 146 mmol/L 04/25/2025 1:47 PM EDT [facility] POTASSIUM 4.1 3.5 - 5.0 mmol/L 04/25/2025 1:47 PM EDT [facility] CHLORIDE 109 98 - 109 mmol/L 04/25/2025 1:47 PM EDT [facility] CARBON DIOXIDE 24 22 - 32 mmol/L 04/25/2025 1:47 PM EDT [facility] ANION GAP 9 5 - 15 mmol/L 04/25/2025 1:47 PM EDT [facility] BLOOD UREA NITROGEN 24 5 - 27 mg/dL 04/25/2025 1:47 PM EDT [facility] CREATININE 1.59(H) 0.60 - 1.30 mg/dL 04/25/2025 1:47 PM EDT [facility] Comment:METHOD TRACEABLE TO IDMS STANDARD GLUCOSE 88 65 - 99 mg/dL 04/25/2025 1:47 PM EDT [facility] CALCIUM 9.1 8.5 - 10.5 mg/dL 04/25/2025 1:47 PM EDT [facility] EGFR Non-Race Dependent 44(L) >=60 ml/min/1.7 3sq.m 04/25/2025 1:47 PM EDT [facility] Comment: Reported eGFR is based on the CKD-EPI 2020 equation that does not use a race coefficient. Blood Venous blood / Unknown Venipuncture / Unknown 04/25/2025 10:15 AM EDT 04/25/2025 10:15 AM EDT us Emiliano Alaniz MD LAB BLOOD ORDERABLES Final Resul t [facility] [address] [place] [address], * X-ray urography IVP with or without tomography (04/23/2025 10:20 AM EDT) Anatomical Region Laterality Modality Body, Abdomen N/A Computed Radiogr aphy 04/23/2025 10:2 6 AM EDT Narrative 04/23/2025 10:31 AM EDT Clinical history: Ureteral stone. IVP: 04/23/2025 FINDINGS: Supine imaging services director images the abdomen were obtained. There are [...] appearing findings as described above. Finalized by Paco Peterson MD on 04/23/2025 10:31 AM Procedure Note Paco Peterson MD - 04/23/2025 Clinical history: Ureteral stone. IVP: 04/23/2025 FINDINGS: Supine imaging services director images the abdomen were obtained. There are no suspiciouscalcifications overlying the expected location of the kidneys. Multiplecalcifications overlying the pelvis. Compared to prior abdominal imagesfrom 04/12/2025 a new, 4 mm calcification is present in the right hemipelvisproximal to the ischial spine level. Other phleboliths are present. Degenerative changes are noted within the lower lumbar spine withdextroconvex curvature. Bilateral hip osteoarthritis is present. Bowel gaspattern is within normal limits. After 100 mL Omnipaque 300 intravenously there is prompt concentration andexcretion of contrast within the left kidney. Asymmetric, delayednephrogram is present on the right. On oblique images pelvicalyceal contours appear within normal limits onthe left. Opacification of the pelvicalyceal system and ureter is delayedon the right. Course and caliber of the left ureter appears within normal limits. Theleft distal ureter is not visualized. The bladder appears trabeculated with no gross filling defect. A smallpost void residual is evident on postcontrast images with lobularity ofthe inferior aspect of the bladder possibly related to prior procedure. IMPRESSION: Right hydronephrosis and persistent obstruction with a 4 mm calculus thatappears to be in the distal ureter near the UVJ at this time. Other chronic appearing findings as described above. Finalized by Paco Peterson MD on 04/23/2025 10:31 AM us Manolo Dotson MD [facility] ORDER TEOFILO Final Result * X-ray abdomen ap 1 view (04/12/2025 12:07 PM EDT) Anatomical Region Laterality Modality Body, Abdomen N/A Computed Radiogr aphy 04/15/2025 10:2 6 AM EDT Narrative 04/15/2025 11:00 AM EDT XR ABDOMEN AP 1 VW HISTORY: Kidney [...] Gardenia Moore MD on 04/15/2025 10:26 AM William Dennis MD have personally reviewed the image(s) and agree with and/or edited the report Finalized by William Frias MD on 04/15/2025 11:00 AM Procedure Note William Frias MD - 04/15/2025 XR ABDOMEN AP 1 VW HISTORY: Kidney stone surveillance COMPARISON: CT abdomen and pelvis 03/29/2025 FINDINGS: AP views obtained. Nonobstructive bowel gas pattern. No abnormal calcifications overlyingthe kidneys or ureters. Multilevel degenerative changes anddextroscoliosis of the lumbar spine. Surgical clips present in the righthemiabdomen. Phleboliths present in the pelvis. Moderate to severedegenerative changes of the bilateral hips. IMPRESSION: * No abnormal calcifications overlying the kidneys or ureters. Approved by Gardenia Moore MD on 04/15/2025 10:26 AM William Dennis MD have personally reviewed the image(s) and agree withand/or edited the report Finalized by William Frias MD on 04/15/2025 11:00 AM us Bevleif Quarles INTERPRETIVE NATURALIST-FRICTION WELDING MACHINE OPERATOR IMG DIAGNOSTIC IMAGING O RDERABLES Final Result * (ABNORMAL) POCT Nursing Urine Macroscopic UA (03/29/2025 10:37 AM EDT) POC Urine Specific [place] 1.025 1.010, 1.015, 1.020, 1.025 03/29/2025 10:28 AM EDT [facility] POC Urine Leukocyte Esterase Negative Negative 03/29/2025 10:28 AM EDT [facility] POC Urine Nitrite Negative Negative 03/29/2025 10:28 AM EDT [facility] POC Urine pH 6.5 5.0, 6.0, 6.5, 7.0, 7.5, 8.0, 8.5, 5.5 03/29/2025 10:28 AM EDT [facility] POC Urine Protein Trace(A) Negative 03/29/2025 10:28 AM EDT [facility] POC Urine Glucose Negative Negative 03/29/2025 10:28 AM EDT [facility] POC Urine Ketones Negative Negative 03/29/2025 10:28 AM EDT [facility] POC Urine Urobilinogen 0.2 E.U./dL 03/29/2025 10:28 AM EDT [facility] POC Urine Bilirubin Negative Negative 03/29/2025 10:28 AM EDT [facility] POC Urine Blood/HGB Large(A) Negative 03/29/2025 10:28 AM EDT [facility] Urine 03/29/2025 10:3 7 AM EDT 03/29/2025 10:27 AM EDT us Paco Hill MD POINT OF CARE TEST ORDERABLE S Final Result [facility] [address] [place] [address], * Extra Urine Culture (03/29/2025 10:29 AM EDT) Extra Tube Auto Resulted 03/29/2025 12:02 PM EDT [facility] Urine Urine specimen collection, clean catch / Unknown Collection / Unknown 03/29/2025 10:29 AM EDT 03/29/2025 10:29 AM EDT Paco Hill MD URINE ORDERABLES Final Resul t Performing Organization Address City/[facility]/ZIP Co de Phone Number [address] [place] [address], [place] * Extra Urine (03/29/2025 10:29 AM EDT) Extra Tube Auto Resulted 03/29/2025 12:02 PM EDT [facility] Urine Urine specimen collection, clean catch / Unknown Collection / Unknown 03/29/2025 10:29 AM EDT 03/29/2025 10:29 AM EDT Paco Hill MD URINE ORDERABLES Final Resul t Performing Organization Address City/[facility] Co de Phone Number [address] [place] [address], [place] * Urine Culture Urine, Clean Catch Midstream (03/29/2025 10:29 AM EDT) CULTURE RESULTS <10,000 ORGANISMS/m L NORMAL URO GENITAL TAMMY 03/30/2025 8:16 AM EDT [facility] Urine Urine specimen collection, clean catch / Unknown Collection / Unknown 03/29/2025 10:29 AM EDT 03/29/2025 10:29 AM EDT Paco Hill MD MICROBIOLOGY - GENERAL ORDER TEOFILO Final Result Performing Organization Address City/[facility]/ZIP Co de Phone Number [facility] [address] [place] [address], [place] [phone] * Troponin I, High Sensitivity 1 Hour (03/29/2025 10:26 AM EDT) TROPONIN I, HIGH SENSITIVITY 6 <21 ng/L 03/29/2025 10:56 AM EDT [facility] Blood Venous blood / Unknown Venipuncture / Unknown 03/29/2025 10:26 AM EDT 03/29/2025 10:28 AM EDT Paco Hill MD LAB BLOOD ORDERABLES Final R esult Performing Organization Address [facility] Co de Phone Number [address] [place] [address], * Extra Urine [place] (03/29/2025 10:24 AM EDT) Extra Tube Auto Resulted 03/29/2025 12:02 PM EDT [facility] Urine Urine specimen collection, clean catch / Unknown 03/29/2025 10:24 AM EDT 03/29/2025 10:29 AM EDT Paco Hill MD URINE ORDERABLES Final Resul t Performing Organization Address [facility] de Phone Number [address] [place] [address], * CT lumbar spine without contrast (03/29/2025 10:11 AM EDT) Anatomical Region Laterality Modality MSK, Neuro, Spine, L-spine, Spine Covera N/A Computed Tomography 03/29/2025 10:1 6 AM EDT Narrative 03/29/2025 10:[address] LUMBAR SPINE WO CONT CLINICAL INFORMATION: [...] Mekhi Shook MD on 03/29/2025 10:18 AM Procedure Note Mekhi Shook MD - 03/29/2025 CT LUMBAR SPINE WO CONT CLINICAL INFORMATION: back pain s/p fall. COMPARISON: None. PROCEDURE: Routine lumbosacral spine protocol CT was obtained without intravenouscontrast. Sagittal and coronal reformatted images were obtained from theaxial data. All CT scans at this facility use dose modulation, iterativereconstruction, and/or weight based dosing when appropriate to reduceradiation dose to as low as reasonably achievable. FINDINGS: Degenerative changes, no fracture. Vacuum disc phenomenon, anteriorosteophyte formation. Vascular calcifications and aortic ectasia. IMPRESSION: * No fracture or malalignment. * Multilevel degenerative changes. Finalized by Mekhi Shook MD on 03/29/2025 10:18 AM us Paco Hill MD IMG CT ORDERABLES Final Resu lt * CT abdomen and pelvis without contrast (03/29/2025 10:06 AM EDT) Anatomical Region Laterality Modality Body, Abdomen, Body Covera N/A Compu carlos Tomography 03/29/2025 10:0 9 AM EDT Narrative 03/29/2025 10:20 AM EDT History: Right-sided abdominal pain. Fall one week [...] Edilberto Eckert MD on 03/29/2025 10:20 AM Procedure Note Edilberto Eckert MD - 03/29/2025 History: Right-sided abdominal pain. Fall one week ago. Exam/Technique: Images are obtained through the abdomen and pelviswithout either IV or oral contrast. Comparison: None Findings: There is no evidence of active pulmonary disease in the lungbases. There is mild right renal collecting system dilatation and mild dilatationof the proximal right ureter, extending down to a 3 mm diameter calculusin the midportion of the right ureter. 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 Maximum diameter of just 3.1 cm. Lack of contrast of course significantly compromises their assessment, butas seen with this technique, the liver, spleen, pancreas, adrenal glands,and left kidney display no significant abnormalities. There is nocollecting system dilatation in the left kidney.Status postcholecystectomy. No left ureteral, or bladder calculi are seen, and the unopacifiedurinary bladder displays no other gross abnormalities. Small left inguinal hernia is demonstrated with the sac containing onlyfat. No dilatation or other gross abnormalities of the unopacified bowel loopsare demonstrated. There is no free intraperitoneal fluid or gas and no gross abnormal fluidcollections. IMPRESSION: Mild right hydronephrosis with 3 mm calculus in themidportion of the right ureter. All CT scans at this facility use dose modulation, iterativereconstruction, and/or weight based dosing when appropriate to reduceradiation dose to as low as reasonably achievable. Finalized by Edilberto Eckert MD on 03/29/2025 10:20 AM Paco Hill MD IMG CT ORDERABLES Final Resu lt * CT chest without contrast (03/29/2025 10:03 AM EDT) Anatomical Region Laterality Modality Body, Lung, Chest, Body Covera N/A C omputed Tomography 03/29/2025 10:0 7 AM EDT Narrative 03/29/2025 10:[address] CHEST WO CONT CLINICAL INFORMATION: right [...] detection for pulmonary nodules was performed utilizing [employer] software. FINDINGS: Please note, assessment of the [...] Mekhi Shook MD on 03/29/2025 10:10 AM Procedure Note Mekhi Shook MD - 03/29/2025 CT CHEST WO CONT CLINICAL INFORMATION: right sided pain s/p fall 1 week ago. COMPARISON: None. PROCEDURE: Routine CT chest obtained without contrast. Multiplanar reformats obtainedfrom the axial data. All CT scans at this facility use dose modulation,iterative reconstruction, and/or weight based dosing when appropriate toreduce radiation dose to as low as reasonably achievable. Computer aided detection for pulmonary nodules was performed utilizing [employer]. FINDINGS: Please note, assessment of the vascular/cardiac structures is limitedwithout contrast. Bibasilar atelectasis, minimal scarring. Some calcified granulomas arepresent. No effusions. Atherosclerotic calcifications in the aorta whichis mildly ectatic. The pulmonary arteries are of normal caliber. Noenlarged lymph nodes. No evidence of acute fracture. Degenerativechanges. IMPRESSION: * No acute traumatic findings in the chest. Finalized by Mekhi Shook MD on 03/29/2025 10:10 AM Paco Hill MD [facility] [place] ORDERABLES Final Resu lt * CT facial bones without contrast (03/29/2025 9:59 AM EDT) Anatomical Region Laterality Modality Neuro, Face, Neuro Covera N/A Comput ed Tomography 03/29/2025 10:0 0 AM EDT Narrative 03/29/2025 10:03 AM EDT History: Pain following Exam/Technique: Thin axial images [...] Siddhartha Alexander MD on 03/29/2025 10:03 AM Procedure Note Siddhartha Alexander MD - 03/29/2025 History: Pain following Exam/Technique: Thin axial images through the facial bones were obtained.Study was supplemented by sagittal and coronal reconstructed images.Automated exposure control was utilized. Comparison: None Findings: There is no evidence for an acute osseous abnormality. Nofacial bone fractures are seen. The orbital floors are intact. Theparanasal sinuses are well aerated. IMPRESSION: Normal CT facial bones. Finalized by Siddhartha Alexander MD on 03/29/2025 10:03 AM Paco Hill MD [facility] [place] ORDERABLES Final Resu lt * CT brain without contrast (03/29/2025 9:59 AM EDT) Anatomical Region Laterality Modality Neuro, Head, Head and Neck, Neuro Covera N/A Computed Tomography 03/29/2025 10:0 0 AM EDT Narrative 03/29/2025 10:[address] BRAIN WO CONT: 03/29/2025 9:56 AM [...] pneumatized. IMPRESSION: * No acute intracranial abnormality Finalized by Meena Tran MD on 03/29/2025 10:01 AM Procedure Note Meena Tran MD - 03/29/2025 CT BRAIN WO CONT: 03/29/2025 9:56 AM CLINICAL INFORMATION: vomiting previous head injury TECHNIQUE: CT Head without intravenous contrast. Coronal sagittal reformatted imageswere also obtained. All CT scans at this facility use dose modulation, iterativereconstruction, and/or weight based dosing when appropriate to reduceradiation dose to as low as reasonably achievable. COMPARISON: No relevant prior studies available. FINDINGS: The ventricular system is normal in caliber. No large vessel territoryinfarct or acute intracranial hemorrhage. No extra-axial fluidcollection. No midline shift. Scott-white matter differentiation ismaintained. No effacement of the basal cisterns. The calvarium isintact. Paranasal sinuses are well pneumatized. IMPRESSION: * No acute intracranial abnormality Finalized by Meena Tran MD on 03/29/2025 10:01 AM us Paco Hill MD IM CT ORDERABLES Final Resu lt * Troponin I, High Sensitivity 0 Hour (03/29/2025 9:21 AM EDT) TROPONIN I, HIGH SENSITIVITY 4 <21 ng/L 03/29/2025 10:03 AM EDT [facility] Blood Venous blood / Unknown Venipuncture / Unknown 03/29/2025 9:21 AM EDT 03/29/2025 9:32 AM EDT us Paco Hill MD LAB BLOOD ORDERABLES Final R esult Performing Organization Address City/[facility] Co de Phone Number [address] [address], [place] * (ABNORMAL) APTT (03/29/2025 9:21 AM EDT) APTT 59(H) 26 - 37 sec 03/29/2025 9:44 AM EDT [facility] Blood Venous blood / Unknown Venipuncture / Unknown 03/29/2025 9:21 AM EDT 03/29/2025 9:32 AM EDT Paco Hill MD LAB BLOOD ORDERABLES Final R esult Performing Organization Address [facility] Co de Phone Number [address] [address], [place] * (ABNORMAL) Protime & INR (03/29/2025 9:21 AM EDT) PROTIME 14.2(H) 9.8 - 13.2 sec 03/29/2025 9:44 AM EDT [facility] INR 1.2 0.9 - 1.2 03/29/2025 9:44 AM EDT [facility] Blood Venous blood / Unknown Venipuncture / Unknown 03/29/2025 9:21 AM EDT 03/29/2025 9:32 AM EDT Paco Hill MD LAB BLOOD ORDERABLES Final R esult Performing Organization Address City/[facility] Co de Phone Number [address] [place] [address], [place] * Lipase (03/29/2025 9:21 AM EDT) LIPASE 30 17 - 40 U/L 03/29/2025 9:50 AM EDT [facility] Blood Venous blood / Unknown Venipuncture / Unknown 03/29/2025 9:21 AM EDT 03/29/2025 9:32 AM EDT us Paco Hill MD LAB BLOOD ORDERABLES Final R esult [facility] [address] [place] [address], * (ABNORMAL) Comprehensive metabolic panel (03/29/2025 9:21 AM EDT) SODIUM 138 134 - 146 mmol/L 03/29/2025 9:52 AM EDT [facility] POTASSIUM 4.1 3.5 - 5.0 mmol/L 03/29/2025 9:52 AM EDT [facility] CHLORIDE 107 98 - 109 mmol/L 03/29/2025 9:52 AM EDT [facility] CARBON DIOXIDE 21(L) 22 - 32 mmol/L 03/29/2025 9:52 AM EDT [facility] ANION GAP 10 5 - 15 mmol/L 03/29/2025 9:52 AM EDT [facility] BLOOD UREA NITROGEN 19 5 - 27 mg/dL 03/29/2025 9:52 AM EDT [facility] CREATININE 1.34(H) 0.70 - 1.20 mg/dL 03/29/2025 9:52 AM EDT [facility] Comment:METHOD TRACEABLE TO IDMS STANDARD GLUCOSE 162(H) 65 - 99 mg/dL 03/29/2025 9:52 AM EDT [facility] CALCIUM 8.9 8.5 - 10.5 mg/dL 03/29/2025 9:52 AM EDT [facility] TOTAL PROTEIN 7.4 6.0 - 8.0 g/dL 03/29/2025 9:52 AM EDT [facility] ALBUMIN 4.1 3.2 - 5.3 g/dL 03/29/2025 9:52 AM EDT [facility] ALKALINE PHOSPHATASE 153(H) 39 - 130 U/L 03/29/2025 9:52 AM EDT [facility] AST 17 <=41 U/L 03/29/2025 9:52 AM EDT [facility] ALT 12 <=40 U/L 03/29/2025 9:52 AM EDT [facility] BILIRUBIN,TOTAL 0.9 0.3 - 1.2 mg/dL 03/29/2025 9:52 AM EDT [facility] EGFR Non-Race Dependent 54(L) >=60 ml/min/1.7 3sq.m 03/29/2025 9:52 AM EDT [facility] Comment: eGFR not reported due to non-numeric value for Creatinine. Reported eGFR is based on the CKD-EPI 2020 equation that does not use a race coefficient. Blood Venous blood / Unknown Venipuncture / Unknown 03/29/2025 9:21 AM EDT 03/29/2025 9:32 AM EDT us Paco Hill MD LAB BLOOD ORDERABLES Final R esult [facility] [address] [place] [address], [place] * (ABNORMAL) Thyroid profile includes TSH FT4 (02/19/2025 10:37 AM EDT) FREE T4 0.67 0.61 - 1.60 ng/dL 02/19/2025 2:09 PM EDT [facility] TSH 20.09(H) 0.49 - 4.67 uIU/mL 02/19/2025 2:09 PM EDT [facility] Blood Venous blood / Unknown Venipuncture / Unknown 02/19/2025 10:37 AM EDT 02/19/2025 10:37 AM EDT Shikha Rowell MD LAB BLOOD ORDERABLES Final Re sult Performing Organization Address City/[facility]/ZIP Co de Phone Number [facility] [address] [place] [address], * (ABNORMAL) T3, free (02/19/2025 10:37 AM EDT) FREE T3 4.16(H) 2.50 - 3.90 pg/mL 02/19/2025 2:08 PM EDT [facility] Blood Venous blood / Unknown Venipuncture / Unknown 02/19/2025 10:37 AM EDT 02/19/2025 10:37 AM EDT Shikha Rowell MD LAB BLOOD ORDERABLES Final Re sult Performing Organization Address [facility] Co de Phone Number [facility] [address] [place] [address], [place] [phone] * Colonoscopy Report (12/19/2024 7:58 AM EDT) Narrative SYSTEMGENERATED, DOCUMENTATION - 12/19/2024 7:58 AM EDT This order has been auto-finalized for image and report archival in PACs. *For full report details, please reach out to your physician. This image is visible to you in MyChart.* Ishaan Dickinson MD IMG OR IMG ORDERABLES Lidya l Result from Last 3 Months or Most Recently Relevant to Health Maintenance Insurance MEDICARE ANTHEM Advance Directives * Full Code (Latest Code Status on File) Date Activated Date Inactivated Comments 05/02/2025 1:46 PM 05/02/2025 9:11 PM Care Teams Plasma Cutting Machine Operator Relationship Specialty Start Date End Date Mary Grace Rashid MD [address] [place] [address] PCP - General Family Medicine 12/06/24
--- OUTSIDE RECORDS SUMMARY | 2025-05-21 08:02 | XMS_ITS | Encounter Summary ---
Author Organization [facility] Address [id number] [address] [place] [address] Care Team Providers Care School Bus Technician Name Role Phone Mary Grace Rashid MD Primary Care Provider [phone] Reason for Visit * Reason Comments Med Refill Encounter Details Date Type Department Care Team (Late st Contact Info) Description 12/27/2024 Refill [facility] [address] [place] [phone] Esther Matos, GAMBRELER-RETAIL SUPERVISOR [address] [place] [address] Med Refill Social History Tobacco Use Types Packs/Day Years [...] got money to buy more. Never True 12/06/2024 Within the past 12 months th e food we bought just didn't last and we didn't have money to get more. Never True 12/06/2024 Purpose - Life Answer Date Recorded Purpose and direction in life Unknown Sex and Gender Information Value Date Recorded Sex Assigned at Male 07/07/2021 6:25 PM EST Legal Sex Male 11:28 AM EDT Gender Identity Male 07/07/2021 6:25 PM EST Sexual Orientation Straight 07/07/2021 6: 25 PM EST documented as of this encounter Miscellaneous Notes * Telephone Encounter - Lisa Jackson LPN - 12/27/2024 6:28 PM EDT original prescription was reordered on 01/01/2025 by Paco Stover APRN-RETAIL SUPERVISOR. documented in this encounter Plan of Treatment Upcoming Encounters Date Type Department Care Team (Late st Contact Info) Description 06/18/2025 10:40 AM EST Appointment [facility] - [place] [address] [place] [address] 07/26/2025 4:15 PM EST Office Visit [facility] [address] [facility] [address] [place] [phone] Emiliano Alaniz MD [address] [place] [address] documented as of this encounter Visit Diagnoses Not on filedocumented in this encounter Additional Health Concerns Assessment Noted Time A Body Mass Index follow-up plan has been documented for the patient 09/11/2019 9:35 AM EST documented as of this encounter Care Teams School Bus Technician Relationship Specialty Start Date End Date Mary Grace Rashid MD [address] [place] [address] PCP - General Family Medicine 12/06/24 documented as of this encounter
--- OUTSIDE RECORDS SUMMARY | 2025-05-21 08:02 | XMS_ITS ---
Author Organization [facility] Address [address] [place] [address] Care Team Providers Care Ict Analyst Name Role Phone Mary Grace Rashid MD Primary Care Provider [phone] Brooks Jeffery LPN Unavailable [phone] Mary Grace Rashdi MD Unavailable Chronic Care Management (CCM) Status:Enrolled (Active) Start date:08/22/2024 Enrollment date:08/22/2024 Enrollment reason:Referred by provider Overview Please assess for Care Management needs. 08/22/24, 2:16 PM - Brooks Jeffery LPN- Patient gives verbal consent to be enrolled in CCM Program and understands there could be a bill for this service should insurer/policy change in the future. Case Team Name Relationship Phone Brooks Jeffery LPN(Responsible Staff) Licensed Pr actical Nurse [phone] Continued Care and Services Coordination
--- OUTSIDE RECORDS SUMMARY | 2025-05-21 08:02 | XMS_ITS | Encounter Summary ---
Author Organization [facility] Address [id number] [address] [place] [address] Care Team Providers Care Camp Dining Room Attendant Name Role Phone Mary Grace Rashid MD Primary Care Provider [phone] Encounter Details Date Type Department Care Team (Late st Contact Info) Description 11/09/2021 Telephone [facility] [address] [place] [phone] Felicity Johnson RN Social History Tobacco Use Types Packs/Day [...] Exposure Response Date Recorded In the last 10 days, have yo u been in contact with someone who was confirmed or suspected to have Coronavirus/COVID-19? No / Unsure 11/05/2021 7:13 AM EDT documented as of this encounter Miscellaneous Notes * Telephone Encounter - Felicity Johnson RN - 11/09/2021 11:34 AM EDT Pt had cardioversion 11/05/21 the called and states Mauro went back in A-Fib his HR 91/min. They were told to call if he goes into A-Fib. Please address thx slm * Telephone Encounter - Emiliano Alaniz MD - 11/09/2021 11:34 AM EDT Did pt experience any symptomatic benefit after cardioversion and before return of AF? If no benefit, ok to keep his currently scheduled f/u w/ me in January. * Telephone Encounter - Felicity Johnson RN - 11/09/2021 11:34 AM EDT Pt states may have felt a tiny bit better,but he would rather just keep doing what he is doing now and see you in January. Thx slm documented in this encounter Plan of Treatment Upcoming Encounters Date Type Department Care Team (Late st Contact Info) Description 06/18/2025 10:40 AM EST Appointment [facility] - [place] [address] [place] [address] 07/26/2025 4:15 PM EST Office Visit [facility] [address] [place] [address] [address] [place] [address] Emiliano Alaniz MD [address] [place] [phone] documented as of this encounter Visit Diagnoses Not on filedocumented in this encounter Additional Health Concerns Assessment Noted Time A Body Mass Index follow-up plan has been documented for the patient 09/11/2019 9:35 AM EST documented as of this encounter Care Teams Camp Dining Room Attendant Relationship Specialty Start Date End Date Mary Grace Rashid MD [address] [place] [address] PCP - General Family Medicine 12/06/24 documented as of this encounter
--- OUTSIDE RECORDS SUMMARY | 2025-05-21 08:02 | XMS_ITS | Clinical Summary ---
Author Organization [facility] Healthcare Address [address] [place] [address] Care Team Providers Care Joiners Supervisor Name Role Phone Mary Grace Rashid MD Primary Care Provider [phone] Brooks Jeffery LPN Unavailable [phone] Mary Grace Rashid MD Unavailable Allergies No known active allergies Medications apixaban (Eliquis) 5 MG tablet Take 1 tablet by mouth in the morning and 1 tablet before bedtime. 2 Active finasteride (Proscar) 5 MG tabletIndications:E nlarged prostate TAKE ONE TABLET BY MOUTH DAILY 90 tablet 3 4 Active dilTIAZem CD (Cardizem CD) 180 MG 24 hr capsule Take 180 mg by mouth Daily 5 Active atorvastatin (Lipitor) 20 MG tabletIndications:M ixed hyperlipidemia Take 1 tablet (20 mg) by mouth Daily 100 tablet 3 5 02/13/20 26 Active methIMAzole (Tapazole) 5 MG tabletIndications:H yperthyroidism Take 1 tablet (5 mg) by mouth Daily 90 tablet 1 5 08/26/19 26 Active furosemide (Lasix) 20 MG tablet Take 20 mg by mouth Daily as needed 5 Active mupirocin (Bactroban) 2 % ointmentIndications :Epidermal inclusion cyst Apply to affected area 3x daily for 7 days, 30 day supply 22 g 5 Active Active Problems Problem Noted Date Diagnosed Date Moderate late onset Alzheimer's dementia 025 Assessment & Plan (02/12/2025 10:23 PM EDT): Imprved Hyperthyroidism 10/04/2024 Assessment & Plan (02/12/2025 10:23 PM EDT): Improved managed by endo Multinodular goiter 10/04/2024 Chronic atrial fibrillation 10/04/2024 Assessment & Plan (02/12/2025 10:23 PM EDT): Stale managed by cardiology Bilateral hearing loss 01/25/2023 Bilateral tinnitus 01/25/2023 Dysfunction of right eustachian tube 01/25/2023 Lack of coordination 01/25/2023 Mixed conductive and sensori neural hearing loss of right ear with restricted hearing of left ear 01/25/2023 Meniere's disease of right ear 01/25/2023 Longstanding persistent atrial fibrillation 05/08 Overview (01/25/2023): Added automatically from request for surgery [id number] Assessment & Plan (04/10/2025 4:51 PM EDT): Managed by cardiol considering watchman Shortness of breath 06/01/2021 Other chronic pain 12/22/2020 Adenomatous polyp of transverse colon 09/11/2019 Hx of adenomatous colonic polyps 08/30/2019 Slow transit constipation 06/14/2019 Enlarged prostate 04/22/2016 Mixed hyperlipidemia 04/22/2016 Assessment & Plan (02/12/2025 10:56 AM EDT): Orders: atorvastatin (Lipitor) 20 MG tablet; Take 1 tablet (20 mg) by mouth Daily Neuropathy 04/22/2016 Resolved Problems Problem Noted Date Diagnosed Date Resolved Date Nonrheumatic mitral valve regurgitation 01/25/2023 08/16/2023 Nonrheumatic tricuspid valve regurgitation 01/25/2023 08/16/2023 Unilateral hearing loss 01/25/2023 01/0 04/2024 Unsteadiness on feet 01/25/2023 024 Cardiac arrhythmia 06/01/2021 Paroxysmal atrial fibrillation 06/01/2021 08/16/2023 Rectal bleeding 08/30/2019 08/16/2023 Encounters Date Type Department Care Team Description 05/20/2025 Clinisync Result Encounter [facility] External Department Unsolicited Provider, Generic External Data 05/07/2025 Clinisync Result Encounter [facility] External Department Unsolicited Provider, Generic External Data 04/26/2025 10:30 AM EDT [facility] [address] [place] [address] Clau Franklin MD Encounter for removal of sutures 04/26/2025 Bamboo flowsheet [facility] [address] [place] [address] Clau Franklin MD 04/26/2025 Travel 04/24/2025 Results Follow-Up [facility] [address] [place] [address] Clau Franklin MD Dermatopathology exam 04/22/2025 9:30 AM EDT Office Visit [facility] [address] [place] [phone] Zeb Decker DPM Contusion of left great toe with damage to nail, initial encounter (Primary Dx); Onychomycosis; Onychodystrophy; Pain in both feet 04/22/2025 Bamboo flowsheet [facility] [address] [place] [address] Zeb Decker DPM 04/22/2025 Travel 04/21/2025 Travel 04/19/2025 Travel 04/18/2025 11:15 AM EDT Office Visit [facility] [address] [place] [phone] Clau Franklin MD Epidermal inclusion cyst (Primary Dx); Actinic keratosis 04/18/2025 Travel 04/15/2025 Travel 04/10/2025 10:20 AM EDT Office Visit [facility] [address] [place] [phone] Mary Grace Rashid MD Fall, sequela (Primary Dx); Chronic kidney disease, stage 3a (CMS-HCC); Contusion of face, sequela; Memory changes; Longstanding persistent atrial fibrillation (HCC) 04/10/2025 Bamboo flowsheet [facility] [address] [place] [phone] Mary Grace Rashid MD 04/10/2025 Travel 04/03/2025 [facility] [address] [place] [address] Brooks Jeffery LPN 03/28/2025 Travel 03/19/2025 Results Follow-Up [facility] [address] [place] [address] Danika Lovell APRN-GERSON Dermatopathology exam 03/19/2025 Telephone [facility] [address] [place] [address] Danika Lovell APRN-GERSON 03/12/2025 3:35 PM EDT Office Visit [facility] [address] [place] [address] Danika Lovlel APRN-GERSON Neoplasm of unspecified behavior of bone, soft tissue, and skin; Actinic keratosis; Capillary angioma; Lentigines; Melanocytic nevus of trunk; Seborrheic keratosis; EIC (epidermal inclusion cyst) 03/12/2025 Bamboo flowsheet [facility] [address] [place] [address] Danika Lovell APRN-GERSON 03/12/2025 Travel 02/27/2025 11:50 AM EDT Telemedicine [facility] [address] [place] [address] Shikha Rowell MD Hyperthyroidism (Primary Dx); Multinodular goiter ; Chronic atrial fibrillation (HCC) 02/20/2025 Travel from Last 3 Months Immunizations Immunization Administration Dates Next Due DTP 05/11/2010 Influenza Whole 05/04/2010 Influenza, High Dose Seasona l, Preservative Free 06/15/2024,06/17/2020,06/14/2019,05/15,04/27/2017,04/22/2016,04/21/2015 ,05/03/2014,04/30/2013 Influenza, High-dose Seasona l, Quadrivalent, Preservative Free 05/05/2023,05/17/2022,06/23/2021,06/17,06/14/2019,04/27/2017 Influenza, injectable, quadr ivalent, preservative free 05/15/2018 Influenza, seasonal, injecta ble, preservative free 04/21/2015,05/03/2012,05/27/2011 Influenza, seasonal, intrade rmal, preservative free 05/03/2012 Pneumococcal Conjugate PCV 13 04/21/2015 Pneumococcal Polysaccharide PPSV23 03/04/2014 Pneumococcal, Unspecified 05/11/2010 Td (adult), 5 Lf tetanus tox oid, preservative free, adsorbed 05/11/2010 Tdap 05/11/2010 Varicella 11/25/2012 Zoster, Recombinant 04/04/2023,02/01/2023 Zoster, live 09/08/2012 Family History Medical History Relation Name Comments Alcohol abuse Father Eulogio Hearing loss Father Eulogio Alzheimer's disease Mother Milka Coronary artery disease Mother Milka Heart disease Mother Milka Stroke Mother Milka Cancer Sister 1 Rebecca Cancer Sister 2 Rebecca Cancer Sister 3 Leda Cancer Sister 4 Rebecca Cancer Sister 5 Rebecca Relation Name Status Comments Father Eulogio Mother Milka Sister 1 Rebecca Alive Sister 2 Rebecca Alive Sister 3 Leda Alive Sister 4 Rebecca Alive Sister 5 Rebecca Alive Social History Tobacco Use Types Packs/Day Years [...] week 02/08/2025 How often do you attend [facility] or [facility] services? More than 4 times per year [...] Recorded Patient Health Questionnaire-2 Score 0 08/17/2024 [facility] [place] [facility] Occup[facility] ional Health - Occupational Stress [...] any time in the past 12 m [facility], were you homeless or living in a long-term (including now)? No 02/08/2025 Sex and Gender Information Value Date Recorded Sex Assigned at Male 01/26/2023 5:11 PM EDT Legal Sex Male 7:14 PM EDT Gender Identity Male 01/26/2023 5:11 PM EDT Sexual Orientation Straight 01/26/2023 5: 11 PM EDT Last Filed Vital Signs Vital Sign Reading Time Taken Comments Blood Pressure 124/78 04/10/2025 10:26 AM EDT Pulse 78 04/10/2025 10:26 AM EDT Temperature 36.2 C (97.1 F) 02/12/2025 9:55 AM EDT Respiratory Rate 18 04/10/2025 10:26 AM EDT Oxygen Saturation 98% 04/10/2025 10:26 AM EDT Inhaled Oxygen Concentration - - Weight 90.3 kg (199 lb) 04/22/2025 9:25 AM EDT Height 186.7 cm (6' 1.5 ) 04/22/2025 9:25 AM EDT Body Mass Index 25.9 04/22/2025 9:25 AM EDT Plan of Treatment Upcoming Encounters Date Type Department Care Team (Late st Contact Info) Description 05/24/2025 9:30 AM EDT Office Visit [facility] [address] [place] [phone] Clau Franklin MD [address] [place] [address] 06/05/2025 11:50 AM EDT Telemedicine [facility] [address] [place] [address] Shikha Rowell MD [address] [place] [address] 07/22/2025 8:30 AM EST Procedure Visit [facility] [address] [place] [phone] Zeb Decker DPM [address] [place] [address] 08/15/2025 10:40 AM EST Office Visit [facility] [address] [place] [facility] [phone] Mary Grace Rashid MD [address], [place] [phone] 09/09/2025 2:05 PM EST Office Visit [facility] [address] [place] [address] Danika Lovell, SWEETBREAD TRIMMER-ATTORNEY RECRUITER [address] [place] [address] Health Maintenance Due Date Last Done Comments Influenza Vaccine (#1) 2026 , 05/05/2023, 05/17/2022, Additional history exists Postponed from 04/08/2025 (Patient Refused) Pneumococcal Vaccine: 65+ Years Completed 04/21/2015, 03/04/2014, 05/11/2010 Procedures Procedure Name Priority Date/Time Associated Diagnosis Comments [facility] APTT Routine 05/20/2025 11:39 AM EDT [facility] PROTHROMBIN TIME INR W/O COUM Routine 05/20/2025 11:39 AM EDT [facility] APTT Routine 05/07/2025 2:05 PM EDT [facility] PROTHROMBIN TIME INR W/O COUM Routine 05/07/2025 2:05 PM EDT ALL CBC WITH AUTO DIFF Routine 2:05 PM EDT ALL BASIC METABOLIC PANEL Routine 2024 2:05 PM EDT SKIN REPAIR Routine 04/18/2025 11:13 AM EDT Epidermal inclusion cyst SKIN EXCISION Routine 04/18/2025 11:13 AM EDT Epidermal inclusion cyst DERMATOPATHOLOGY EXAM Routine 04/18/2025 12:00 AM EDT Epidermal inclusion cyst SKIN / NAIL BIOPSY Routine 03/12/2025 3: 22 PM EDT Neoplasm of unspecified behavior of bone, soft tissue, and skin SKIN / NAIL BIOPSY Routine 03/12/2025 3: 22 PM EDT Neoplasm of unspecified behavior of bone, soft tissue, and skin CRYOTHERAPY SKIN LESION Routine 03/12/20 3:20 PM EDT Actinic keratosis SKIN / NAIL BIOPSY Routine 03/12/2025 3: 20 PM EDT Neoplasm of unspecified behavior of bone, soft tissue, and skin ZZDERMATOPATHOLOGY EXAM UNORDERABLE Routine 03/12/2025 12:00 AM EDT Neoplasm of unspecified behavior of bone, soft tissue, and skin DERMATOPATHOLOGY EXAM Routine 03/12/2025 12:00 AM EDT Neoplasm of unspecified behavior of bone, soft tissue, and skin TSH Routine 02/20/2025 8:31 AM EDT Hyperthyroidism T4, FREE Routine 02/20/2025 8:31 AM EDT Hyperthyroidism T3, FREE Routine 02/20/2025 8:31 AM EDT Hyperthyroidism from Last 3 Months Results * [facility] PROTHROMBIN TIME INR W/O COUM (05/20/2025 11:39 AM EDT) Only the most recent of2 resultswithin the time period is included. PROTHROMBIN TIME 11.3 9.0 - 11.6 sec TBH TBH INR 1.07 TBH Comment: DESIRED INR: 2.0-3.0 CONDITIONS NOT LISTED BELOW 2.5-3.5 FOR PROSTHETIC HEART VALVE REPLACEMENT 2.5-3.5 RECURRENT THROMBOSIS 05/20/2025 11:3 9 AM EDT 05/20/2025 11:41 AM EDT Narrative MYKE - 05/20/2025 12:40 PM EDT us Generic External Data Provider MYKE Powell inal Result MYKE LUNDBERG * (ABNORMAL) [facility] APTT (05/20/2025 11:39 AM EDT) Only the most recent of2 resultswithin the time period is included. Pathologist [facility] PARTIAL THROMBOPLASTIN TIME 37.5(H) 22.3 - 36.2 sec TB 05/20/2025 11:3 9 AM EDT 05/20/2025 11:41 AM EDT Narrative [facility]IN[facility] - 05/20/2025 12:40 PM EDT us Generic External Data Provider [facility]IN[facility] F inal Result MYKE [facility] * (ABNORMAL) ALL CBC WITH AUTO DIFF (05/07/2025 2:05 PM EDT) Pathologist [facility] TB WBC 5.6 4.0 - 11.0 10 3/uL TBH TB RBC 4.53(L) 4.70 - 6.10 10 6/uL TBH TBH HGB 12.8(L) 14.0 - 18.0 g/dL TB TB HCT 39.6(L) 42.0 - 54.0 % TBH TB MCV 87.4 80.0 - 94.0 fL TBH TB MCH 28.3 25.9 - 34.0 pg TBH TB MCHC 32.3 29.9 - 35.2 g/dL TB TB RDW 14.6 11.0 - 15.0 % TBH TBH PLT 165 150 - 450 10 3/uL TBH TB MPV 9.0(L) 9.5 - 13.5 fL TBH NEUTROPHILS PERCENT AUTO 60.9 43.0 - 75.0 % TBH LYMPHOCYTES PERCENT AUTO 19.7(L) 20.5 - 60.0 % TBH MONOCYTES PERCENT AUTO 7.6 1.7 - 12.0 % TBH TBH EO % 10.5(H) 0.9 - 7.0 % TBH BASOPHILS PERCENT AUTO 0.9 0.2 - 2.0 % TBH IMMATURE GRANULOCYTES PCT AUTO 0.4 0.0 - 0.5 % TBH NEUTROPHILS ABSOLUTE AUTO 3.4 1.4 - 6.5 10 3/uL TBH LYMPHOCYTES ABSOLUTE AUTO 1.1(L) 1.2 - 3.8 10 3/uL TBH MONOCYTES ABSOLUTE AUTO 0.4 0.3 - 0.8 10 3/uL TBH TBH EO # 0.6 0.0 - 0.7 10 3/uL TBH BASOPHILS ABSOLUTE AUTO 0.1 0.0 - 0.1 10 3/uL TBH IMMATURE GRANULOCYTES ABS AUTO 0.02 0.00 - 0.03 10 3/uL TBH 05/07/2025 2:05 PM EDT 05/07/2025 2:08 PM EDT Narrative [facility]IN[facility] - 05/07/2025 2:31 PM EDT Generic External Data Provider MYKE sanchez Result Performing Organization Address [facility] de Phone Number [facility] * (ABNORMAL) ALL BASIC METABOLIC PANEL (05/07/2025 2:05 PM EDT) SODIUM 142 136 - 145 mmol/L TBH POTASSIUM 4.6 3.5 - 5.1 mmol/L TBH CHLORIDE 106 98 - 107 mmol/L TBH CARBON DIOXIDE 26.1 21.0 - 32.0 mmol/L TBH ANION GAP 14.5 TBH GLUCOSE 92 74 - 106 mg/dL TBH BLOOD UREA NITROGEN 21.0(H) 7.0 - 18.0 mg/dL TBH CREATININE 1.32(H) 0.70 - 1.30 mg/dL TBH TBH EGFR-AF SUDANESE >60 >=60 mL/min/1.7 3m 2 TBH TBH EGFR-NON AF SUDANESE 52(L) >=60 mL/min/1.7 3m 2 TBH BUN CREATININE RATIO 15.9 TBH CALCIUM 9.0 8.5 - 10.1 mg/dL TBH 05/07/2025 2:05 PM EDT 05/07/2025 2:08 PM EDT Narrative CLIN[facility] - 05/07/2025 2:28 PM EDT Generic External Data Provider [facility] F inal Result Performing Organization Address [facility] Co de Phone Number [facility]H * Skin repair (04/18/2025 11:13 AM EDT) Narrative Clau Ignacio LPN - 04/18/2025 11:13 AM EDT Complexity: Intermediate Final length (cm): 2.6 Subcutaneous layers (deep stitches): Suture size: 5-0 Suture type: Monocryl (poliglecaprone 25) Stitches: Running subcuticular Fine/surface layer approximation (top stitches): Suture size: 5-0 Suture type comment: Surgipro Stitches: simple running Suture removal (days): 7 Post-procedure details: sterile dressing applied and wound care instructions given Dressing type: pressure dressing and petrolatum Clau Franklin MD DERM PROCEDURE ORDERABLES Fin al Result * Skin excision (04/18/2025 11:13 AM EDT) Narrative Clau Ignacio LPN - 04/18/2025 11:13 AM EDT Excision method: elliptical Lesion length (cm): 2 Lesion width (cm): 1.6 Margin per side (cm): 0 Total excision diameter (cm): 2 Informed consent: discussed and consent obtained Anesthesia: the lesion was anesthetized in a standard fashion Anesthetic: 1% lidocaine w/ epinephrine 1-100,000 local infiltration (3 cc) Instrument used: #15 blade Hemostasis achieved with: electrodesiccation Outcome: patient tolerated procedure well with no complications Clau Franklin MD DERM PROCEDURE ORDERABLES Fin al Result * Dermatopathology exam (04/18/2025 12:00 AM EDT) SPECIMEN TYPE --- SPECIMEN: LFET JEWISH --- [facility] ICD10 Code L72.9 [facility] PROTOCOL EXC - EXCISION [facility] Final Diagnosis FOLLICULAR INFUNDIBULAR CYST. [facility] Gross Text [facility] Microscopic Description Microscopic examination performed. [facility] CPT 27105*1 [facility] Skin Topography unknown / Unknown 04/18/2025 11:13 AM EDT Comment:Differential Diagnos is: EIC Check Margins: No Size of lesion: 2.0 x 1.6 cm Clau Franklin MD LAB PATHOLOGY ORDERABLES Lidya medina Result [facility] * Lesion biopsy (03/12/2025 3:22 PM EDT) Narrative Rhiannon Hector MA - 03/12/2025 3:22 PM EDT Type of biopsy: tangential Informed consent: discussed [...] Photo taken Amount of lidocaine used: 1cc Danika Lovell SWEETBREAD TRIMMER-ATTORNEY RECRUITER DERM PROCEDURE ORDERAB LES Final Result * Lesion biopsy (03/12/2025 3:22 PM EDT) Narrative Rhiannon Hector MA - 03/12/2025 3:22 PM EDT Type of biopsy: tangential Informed consent: discussed [...] Photo taken Amount of lidocaine used: 1cc Result [facility] us Danika Osheaer SWEETBREAD TRIMMER-ATTORNEY RECRUITER DERM PROCEDURE ORDERAB LES Final Result * Cryotherapy, skin lesion (03/12/2025 3:20 PM EDT) Result [facility] us Danika Lovell SWEETBREAD TRIMMER-ATTORNEY RECRUITER DERM PROCEDURE ORDERAB LES Final Result * Lesion biopsy (03/12/2025 3:20 PM EDT) Narrative Rhiannon Hector MA - 03/12/2025 3:20 PM EDT Type of biopsy: tangential Informed consent: discussed [...] Photo taken Amount of lidocaine used: 1cc Result [facility] us Danika Lovell SWEETBREAD TRIMMER-ATTORNEY RECRUITER DERM PROCEDURE ORDERAB LES Final Result * Dermatopathology exam (03/12/2025 12:00 AM EDT) SPECIMEN TYPE ------ SPECIMEN: LEFT UPPER ARM- ANTERIOR ------ [facility] ICD10 Code C44.611 [facility] PROTOCOL FF - FLAT, FRAGMENT [facility] Final Diagnosis NODULAR BASAL CELL CARCINOMA. [facility] Gross Text fragment measuring 0.6x0.6x0.1cm bisected (mw/kb) (03/14/25) [facility] Microscopic Description Microscopic examination performed. [facility] SPECIMEN TYPE ------ SPECIMEN: LEFT ABDOMEN LATERAL ------ [facility] ICD10 Code D23.5 [facility] PROTOCOL F - FLAT [facility] Final Diagnosis COMPOUND NEVUS WITH MILD TO MODERATE ATYPIA. COMMENT: Multiple levels were evaluated. Clinical follow-up of this site is advised, with re-excision if there is any evidence of recurrence. This material was reviewed with Dr. Hartman. Slingjot Gross Text [facility] Microscopic Description Microscopic examination performed. [facility] SPECIMEN TYPE ------ SPECIMEN: LEFT ABDOMEN MEDIAL ------ [facility] ICD10 Code D23.5 [facility] PROTOCOL F - FLAT [facility] Final Diagnosis COMPOUND NEVUS WITH MILD ATYPIA. COMMENT: This material was reviewed with Dr. Fuentes. [facility] Gross Text [facility] Microscopic Description Microscopic examination performed. [facility] CPT 33275*3 [facility] Skin (tissue) specimen (specimen) Topography unknown / Unknown 03/12/2025 3:20 PM EDT Comment:Differential Diagnos is: BCC vs MM Check Margins: No Size of lesion: Skin (tissue) specimen (specimen) Topography unknown / Unknown 03/12/2025 3:22 PM EDT Comment:Differential Diagnos is: Dysplastic Nevus vs other Check Margins: No Size of lesion: Skin (tissue) specimen (specimen) Topography unknown / Unknown 03/12/2025 3:22 PM EDT Comment:Differential Diagnos is: Dysplastic Nevus vs other Check Margins: No Size of lesion: Danika Lovell SWEETBREAD TRIMMER-ATTORNEY RECRUITER LAB PATHOLOGY ORDERABL ES Final Result Performing Organization Address [facility] Co de Phone Number [facility] * T3, free (02/20/2025 8:31 AM EDT) Blood Venous blood specimen / Unknown Shikha Rowell MD LAB BLOOD ORDERABLES Final Re sult Performing Organization Address [facility] Co de Phone Number [facility] * TSH (02/20/2025 8:31 AM EDT) Blood Venous blood specimen / Unknown Shikha Rowell MD LAB BLOOD ORDERABLES Final Re sult Performing Organization Address [facility] Co de Phone Number [facility] * T4, free (02/20/2025 8:31 AM EDT) Blood Venous blood specimen / Unknown Shikha Rowell MD LAB BLOOD ORDERABLES Final Re sult Performing Organization Address [facility] de Phone Number [facility] from Last 3 Months Insurance MEDICARE [facility] Care Teams Joiners Supervisor Relationship Specialty Start Date End Date Mary Grace Rashid MD [address] [place] [address] PCP - General Family Medicine 01/25/23 Mary Grace Rashid MD [address] [place] [address] PCP - ACO Reach 09/14/24 Brooks Jeffery, JYOTI [address] [place] [id number] Licensed Practical Nurse Family Medicine 08/22/24
--- OUTSIDE RECORDS SUMMARY | 2025-05-21 08:02 | XMS_ITS | Encounter Summary ---
Author Organization [facility] Address [id number] [address] [place] [address] Care Team Providers Care Production Potter Name Role Phone Mary Grace Rashid MD Primary Care Provider [phone] Encounter Details Date Type Department Care Team (Latest Contact Info) Description 05/10/2025 Travel Social History Tobacco Use Types Packs/Day Years [...] Description 06/18/2025 10:40 AM EST Appointment [facility] [place] [address] [place] [phone] 07/26/2025 4:15 PM EST Office Visit [facility] [address] [place] [phone] Emiliano Alaniz MD [address] [place] [address] documented as of this encounter Visit Diagnoses Not on filedocumented in this encounter Additional Health Concerns Assessment Noted Time A Body Mass Index follow-up plan has been documented for the patient 09/11/2019 9:35 AM EST documented as of this encounter Care Teams Production Potter Relationship Specialty Start Date End Date Mary Grace Rashid MD [address] [place] [address] PCP - General Family Medicine 12/06/24 documented as of this encounter
--- OUTSIDE RECORDS SUMMARY | 2025-05-21 08:02 | XMS_ITS | Encounter Summary ---
Author Organization [facility] Address [address] [place] [address] Care Team Providers Care Bar Examiner Name Role Phone Mary Grace Rashid MD Primary Care Provider [phone] Brooks Jeffery LPN Unavailable [phone] Mary Grace Rashid MD Unavailable Encounter Details Date Type Department Care Team (Late st Contact Info) Description 05/07/2025 Clinisync Result Encounter [facility] External Department [...] How often do you attend chur or religion services? More than 4 times per year 02/08/2025 Do you belong to any clubs o r organizations such as mormon groups, unions, fraternal or athletic groups, or [...] Recorded Patient Health Questionnaire-2 Score 0 08/17/2024 [facility] - Occupational [...] place to sleep or slept in a long term (including now)? No 01/25/2023 Housing Stability Vital [...] were you homeless or living in a long term (including now)? No 02/08/2025 Sex and Gender [...] Dermatology [address] [place] [phone] Clau Franklin MD [address] [place] [address] 06/05/2025 11:50 AM EDT Telemedicine [facility] [address] [place] [phone] Shikha Rowell MD [address] [place], [place] [phone] 07/22/2025 8:30 AM EST Procedure Visit [facility] Podiatry [address] [place] [phone] Zeb Decker, DPM [address] [place] [address] 08/15/2025 10:40 AM EST Office Visit [facility] Family Medicine [address] [place] [phone] Mary Grace Rashid MD [address] [place] [address] 09/09/2025 2:05 PM EST Office Visit [facility] [address] [place] [address] Danika Lovell, NET C DEVELOPER-UNDER CUTTER [address] [place], [place] [phone] documented as of this encounter Procedures Procedure Name Priority Date/Time Associated Diagnosis Comments SRMCOH PROTHROMBIN TIME INR W/O COUM Routine 05/07/2025 2:05 PM EDT [facility] APTT Routine 05/07/2025 2:05 PM EDT ALL CBC WITH AUTO DIFF Routine 05/07/2025 2:05 PM EDT ALL BASIC METABOLIC PANEL Routine 05/07/2025 2:05 PM EDT documented in this encounter Results * (ABNORMAL) [facility] APTT (05/07/2025 2:05 PM EDT) PARTIAL THROMBOPLASTIN TIME 45.8(HH) 22.3 - 36.2 sec [facility]H Comment:RESULTS CALLED TO 05/07/2025 2:05 PM EDT 05/07/2025 2:08 PM EDT Narrative CLINISYNC - 05/07/2025 4:27 PM EDT Generic External Data Provider CLINISYNC F inal Result Performing Organization Address [facility] de Phone Number [facility] * (ABNORMAL) SRM[facility] PROTHROMBIN TIME INR W/O COUM (05/07/2025 2:05 PM EDT) PROTHROMBIN TIME 11.9(H) 9.0 - 11.6 sec TBH TBH INR 1.14 TBH Comment: DESIRED INR: 2.0-3.0 CONDITIONS NOT LISTED BELOW 2.5-3.5 FOR PROSTHETIC HEART VALVE REPLACEMENT 2.5-3.5 RECURRENT THROMBOSIS 05/07/2025 2:05 PM EDT 05/07/2025 2:08 PM EDT Narrative CLINISYIL - 05/07/2025 4:27 PM EDT Generic External Data Provider CLINISYNC F inal Result Performing Organization Address [facility] de Phone Number [facility] * (ABNORMAL) ALL CBC WITH AUTO DIFF (05/07/2025 2:05 PM EDT) TBH WBC 5.6 4.0 - 11.0 10 3/uL TBH TBH RBC 4.53(L) 4.70 - 6.10 10 6/uL TBH TBH HGB 12.8(L) 14.0 - 18.0 g/dL TBH TBH HCT 39.6(L) 42.0 - 54.0 % TBH TBH MCV 87.4 80.0 - 94.0 fL TBH TBH MCH 28.3 25.9 - 34.0 pg TBH TBH MCHC 32.3 29.9 - 35.2 g/dL TBH TBH RDW 14.6 11.0 - 15.0 % TBH TBH PLT 165 150 - 450 10 3/uL TBH TBH MPV 9.0(L) 9.5 - 13.5 fL TBH [...] Narrative CLINISYNC - 05/07/2025 2:31 PM EDT us Generic External Data Provider [facility] F inal Result [facility] * (ABNORMAL) ALL BASIC METABOLIC PANEL [...] 0.70 - 1.30 mg/dL TBH TBH EGFR-AF MALAYSIAN >60 >=60 mL/min/1.7 3m 2 TBH TBH EGFR-NON AF MALAYSIAN 52(L) >=60 mL/min/1.7 3m 2 TBH BUN CREATININE RATIO 15.9 TBH CALCIUM 9.0 8.5 - 10.1 mg/dL TBH 05/07/2025 2:05 PM EDT 05/07/2025 2:08 PM EDT Narrative CLINISYNC - 05/07/2025 2:28 PM EDT us Generic External Data Provider [facility] F inal Result [facility] documented in this encounter Visit Diagnoses Not on filedocumented in this encounter Additional Health Concerns Assessment Noted Time PHQ-9 Depression Total Score: 3 08/16/19 24 10:00 AM EST documented as of this encounter Care Teams Bar Examiner Relationship Specialty Start Date End Date Mary Grace Rashid MD [address] [place] [address] PCP - General Family Medicine 01/25/23 Mary Grace Rashid MD [address] [place], [place] [phone] PCP - ACO Reach 09/14/24 Brooks Jeffery, JYOTI [address] [place] [address] Licensed Practical Nurse Family Medicine 08/22/24 documented as of this encounter
--- OUTSIDE RECORDS SUMMARY | 2025-05-21 08:02 | XMS_ITS | Encounter Summary ---
Author Organization [facility] Address [id number] [address] [place] [address] Care Team Providers Care Digital Marketing Associate Name Role Phone Mary Grace Rashid MD Primary Care Provider [phone] Encounter Details Date Type Department Care Team (Late st Contact Info) Description 03/31/2025 Results Follow-Up [facility] - Emergency [address] [place] [phone] Anastasiya Magana RN Urine Culture Urine, Clean Catch Midstream Social History Tobacco Use Types Packs/Day Years [...] Description 06/18/2025 10:40 AM EST Appointment [facility] [place] [address] [place] [phone] 07/26/2025 4:15 PM EST Office Visit [facility] [address] [facility] [address] [place] [phone] Emiliano Alaniz MD [address] [place] [address] documented as of this encounter Visit Diagnoses Not on filedocumented in this encounter Additional Health Concerns Assessment Noted Time A Body Mass Index follow-up plan has been documented for the patient 09/11/2019 9:35 AM EST documented as of this encounter Care Teams Digital Marketing Associate Relationship Specialty Start Date End Date Mary Grace Rashid MD [address] [place] [address] PCP - General Family Medicine 12/06/24 documented as of this encounter
--- OUTSIDE RECORDS SUMMARY | 2025-05-21 08:02 | XMS_ITS | Encounter Summary ---
Author Organization [facility] Address [id number] [address] [place] [address] Care Team Providers Care Cloth Mercerizer Back Tender Name Role Phone Mary Grace Rashid MD Primary Care Provider [phone] Encounter Details Date Type Department Care Team (Late st Contact Info) Description 06/03/2021 Orders Only [facility] [address] [place] [phone] External, Scanning Provider Social History Tobacco Use [...] have Coronavirus / COVID-19? No / Unsure 06/01/2021 2:04 PM EDT documented as of this encounter Plan of Treatment Upcoming Encounters Date Type Department Care Team (Late st Contact Info) Description 06/18/2025 10:40 AM EST Appointment [facility] [place] [address] [place] [address] 07/26/2025 4:15 PM EST Office Visit [facility] [address] [facility] [address] [place] [phone] Emiliano Alaniz MD [address] [place] [phone] documented as of this encounter Procedures Procedure Name Priority Date/Time Associated Diagnosis Comments ECG 12-LEAD Routine 06/01/2021 1:54 PM EDT documented in this encounter Results * ECG 12 lead (06/01/2021 1:54 PM EDT) us Scanning Provider External ECG ORDERABLES Final Result Performing Organization Address City/State/[facility] Co de Phone Number MANUALLY TRANSCRIBED RESULTS documented in this encounter Visit Diagnoses Not on filedocumented in this encounter Additional Health Concerns Infection Onset Date Last Indicated Resolved Time COVID-19 Rule-Out 11/02/2021 11/02/2021 11/03/2021 3:26 AM EDT Assessment Noted Time A Body Mass Index follow-up plan has been documented for the patient 09/11/2019 9:35 AM EST documented as of this encounter Care Teams Cloth Mercerizer Back Tender Relationship Specialty Start Date End Date Mary Grace Rashid MD [address] [place] [address] PCP - General Family Medicine 12/06/24 documented as of this encounter
--- OUTSIDE RECORDS SUMMARY | 2025-05-21 08:02 | XMS_ITS | Encounter Summary ---
Author Organization [facility] Address [address] [place] [address] Care Team Providers Care Receivable Manager Name Role Phone Mary Grace Rashid MD Primary Care Provider [phone] Brooks Jeffery LPN Unavailable [phone] Mary Grace Rashid MD Unavailable Reason for Visit * Reason Onset Date Comments Results 03/19/2025 Encounter Details Date Type Department Care Team (Latest Contact Info) Description 03/19/2025 Results Follow-Up [facility] Dermatology [address] [facility] [address] [place] [address] Danika Lovell, BOTTLE SELECTOR-EXTRUDER OPERATOR MULTIPLE [address] [facility] [address] [place] [address] Dermatopathology exam Social History Tobacco [...] week 02/08/2025 How often do you attend [facility] or islam services? More than 4 times per year 02/08/2025 Do you belong to any clubs o r organizations such as adventism groups, unions, fraternal or athletic groups, or [...] Recorded Patient Health Questionnaire-2 Score 0 08/17/2024 [facility] - Occupational Stress [...] place to sleep or slept in a detention (including now)? No 01/25/2023 Housing Stability Vital [...] time in the past 12 m [facility], were you homeless or living in a detention (including now)? No 02/08/2025 Sex and Gender [...] 05/24/2025 9:30 AM EDT Office Visit [facility] [place] [facility] [address] [place] [phone] Clau Franklin MD [address] [place], [place] [phone] 06/05/2025 11:50 AM EDT [facility]medicine [facility] [address] [place] [phone] Shikha Rowell MD [address] [place] [phone] 07/22/2025 8:30 AM EST Procedure Visit [facility] [address] [place] [phone] Zeb Decker DPM [address] [place] [address] 08/15/2025 10:40 AM EST [facility] [address] [place] [phone] Mary Grace Rashid MD [address] [place], [place] [phone] 09/09/2025 2:05 PM EST Office Visit [facility] [address] [place] [phone] Danika Lovell APRN-GERSON [address] [place] [address] documented as of this encounter Visit Diagnoses Not on filedocumented in this encounter Additional Health Concerns Assessment Noted Time PHQ-9 Depression Total Score: 3 08/16/19 24 10:00 AM EST documented as of this encounter Care Teams Receivable Manager Relationship Specialty Start Date End Date Mary Grace Rashid MD [address] [place], [place] [phone] PCP - General Family Medicine 01/25/23 Mary Grace Rashid MD [address] [place] [address] PCP - ACO Reach 09/14/24 Brooks Jeffery LPN [address] [place] [address] Licensed Practical Nurse Family Medicine 08/22/24 documented as of this encounter
--- OUTSIDE RECORDS SUMMARY | 2025-05-21 08:03 | XMS_ITS | CCD ---
Author Organization [facility] Care Team Providers Care Clinical Assoc Name Role Phone Román COLON, Michell R Unavailable Rachid PALMA, Mariela Powell Primary Care Provider [phone] Román DISPENSING OPTICIAN, Michell R Unavailable Brooks Jeffery LPN Unavailable [phone] MARIELA RASHID Primary Care Physician Rachid PALMA, Mariela Powell Primary Care Provider [phone] Rachid PALMA, Mariela Powell Unavailable Rachid PALMA, Mariela Andre Primary Care Provider [phone] Rachid PALMA, Mariela Andre Primary Care Provider [phone] Rachid PALMA, Mariela Andre Primary Care Provider JANEL CHAO Attending Unavailable RACHID, MARIELA F Referring Unavailable RACHID, MARIELA F Primary Care Unavailable ODELL ROJAS Attending Unavailable RACHID, MARIELA F Referring Unavailable RACHID, MARIELA F Primary Care Unavailable EMILIANO ALANIZ Attending Unavailable RACHID, MARIELA F Referring Unavailable RACHID, MARIELA F Primary Care Unavailable MARIAELENA, ESSENCEMAD F Referring Unavailable RACHID, MARIELA F Primary Care Unavailable RACHID, MARIELA F Primary Care Unavailable VI GARCIA Attending Unavailable ISHAAN ZAMAN Admitting Unavailable ISHAAN ZAMAN Attending Unavailable ISHAAN ZAMAN Referring Unavailable RACHID, MARIELA F Primary Care [...] Unavailable MIKE GAMBOA Referring Unavailable RACHID, MARIELA F Primary Care Unavailable BUTLER, MEDINA Vazquez Referring Unavailable RACHID, MARIELA F Primary Care Unavailable EMILIANO ALANIZ Referring Unavailable RACIHD, MARIELA F Primary Care Unavailable MARIAELENA, SHIKHA F Attending Unavailable RACHID, MARIELA F Referring Unavailable MARIAELENA, SHIKHA F Attending Unavailable CATY, DAVID Attending Unavailable RACHID, MARIELA F Referring Unavailable DENBECORNELIO GUILLERMO Attending Unavailable CATY, DAVID Referring Unavailable MARIAELENA, SHIKHA F Attending Unavailable RACHID, MARIELA F Attending Unavailable CHAO, CRISTIANE Attending Unavailable RACHID, MAREILA F Attending Unavailable MARIAELENA, SHIKHA F Attending Unavailable GABINOER, NORMA Olivo Attending Unavailable RACHID, MARIELA F Attending Unavailable JESSICA, CLAU Attending Unavailable RUSHER, ZEB Hammond Attending Unavailable JESSICA, CLAU Attending Unavailable RACHID, MARIELA Andre Attending Unavailable RACHID, MARIELA Powell Referring Unavailable BUTLER, Medina Vazquez Attending Unavailable BUTLER, Medina R Attending Unavailable BUTLER, Medina R Attending Unavailable BUTLER, Medina R Attending Unavailable BUTLER, Medina R Attending Unavailable BUTLER, Medina R Attending Unavailable BUTLER, Medina R Attending Unavailable BUTLER, Medina R Attending Unavailable BUTLER, Medina R Attending Unavailable BUTLER, Medina R Attending Unavailable EMILIANO ALANIZ Admitting Unavailable EARL, EMILIANO Rockwell Attending Unavailable RACHID, MARIELA F Primary Care Unavailable RACHID, MARIELA F Referring Unavailable RACHID, MARIELA F Primary Care Unavailable Jose D MONTES Brooks Unavailable Medications Current Medications Medication Drug Class(es) Dates Sig (Normalized) Sig (Original) acetaminophen 325 mg / HYDROcodone bitartrate 5 mg oral tablet (4 sources) Opioid Agonist Start: 03-29-2025 End: 04-18-2025 take 1 tablet by mouth every six hours as needed for pain HYDROcodone-acetamin ophen ([place]) 5-325 MG tablet Take 1 tablet by mouth every 6 (six) hours if needed for severe pain 03/29/2025 04/18/2025 Discontinued (Therapy completed) apixaban 5 mg oral tablet (20 sources) Factor Xa Inhibitor Start: 06-15-2022 End: 01-01-2025 take 1 tablet by mouth in the morning apixaban (Eliquis) 5 MG tablet Take 1 tablet by mouth in the morning and 1 tablet before bedtime. 06/15/2022 Active atorvastatin 20 mg oral tablet (20 [...] BID, # 20 tab(s), Refills(s) 0, Pharmacy: [facility], 188, cm, 04/19/25 9:22:00 EDT, [...] day(s), # 180 tab(s), Refills(s) 3, Pharmacy: [facility], 188, cm, 02/25/25 12:39:00 EDT, [...] 10/26/2023 Active furosemide 20 mg oral tablet (19 sources) Loop Diuretic Start: 03-18-2025 take 1 tablet by mouth every twenty-four hours as needed furosemide (Lasix) 20 MG tablet Take 20 mg by mouth Daily as needed 03/18/2025 Active glucagon (rdna) 1 mg injection (1 source) Antihypoglycemic Agent Start: 05-02-2025 1 mg, intramuscular, As needed, low blood [...] Indication: anxiety mupirocin 0.02 mg/mg topical ointment (11 sources) RNA Synthetase Inhibitor Antibacterial Start: 04-19-2025 [...] BID, # 60 cap(s), Refills(s) 11, Pharmacy: [facility], 188, cm, 02/25/25 12:39:00 EDT, [...] procedure, # 2 tab(s), Refills(s) 0, Pharmacy: 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] Onset: 02-25-2025 Episodic [...] Test Name Value Interpretation Reference Range Facility [facility] APTTon 05-20-2025 aPTT Coag (Bld) [Time] 37.5 s High [facility] Interpretation and review of laboratory results Abnormal [facility] Healthcare No Panel Informationon 05-20 [facility] SRMCOH PROTHROMBIN TIME INR W/O COUMon 05-20-2025 PT Coag (PPP) [Time] 11.3 s [facility] INR 1.07 [facility] Healthcar e Comment on above: DESIRED INR: 2.0-3.0 CONDITIONS NOT LISTED BELOW 2.5-3.5 FOR PROSTHETIC HEART VALVE REPLACEMENT 2.5-3.5 RECURRENT THROMBOSIS ALL BASIC METABOLIC PANELon 05-07-2025 Anion gap [Moles/Vol] 14.5 mmol/L [facility] Calcium [Mass/Vol] 9 mg/dL 8.5 - 10. 1 mg/dL [facility] Chloride [Moles/Vol] 106 mmol/L 98 - 10 7 mmol/L [facility] CO2 [Moles/Vol] 26.1 mmol/L 21.0 - 32.0 mmol/L [facility] Creatinine [Mass/Vol] 1.32 mg/dL High 0.70 - 1.30 mg/dL [facility] GFR/1.73 sq M.predicted CKD-EPI (S/P/Bld) [Vol rate/Area] >60 >=60 mL/min/1.73m 2 [facility] Glucose [Mass/Vol] 92 mg/dL 74 - 106 mg/dL [facility] Interpretation and review of laboratory results Abnormal [facility] Potassium [Moles/Vol] 4.6 mmol/L 3.5 - 5.1 mmol/L [facility] Sodium [Moles/Vol] 142 mmol/L 136 - 145 mmol/L [facility] EGFR-NON AF TONGAN 52 Low >=60 mL/min/1.73m 2 [facility] Urea nitrogen [Mass/Vol] 21 mg/dL High 7.0 - 18.0 mg/dL [facility] Urea nitrogen/Creatinine [Mass ratio] 15.9 mg/mg [facility] ECG 12 leadon 05-02-[address] [facility] EP Invasiveon 05-02-2025 [facility] HEMOCHRON Eryn 05-02-2025 HEMOCHRON CLOT TIME 262 s High 96-152 [facility] Comment on above: Order Comment: This test is used to monitor heparin levels Performed By: #### H ACT #### [facility] ([facility]) [address] [place] [address] VIR HEMOCHRON CLOT TIME 365 s High 96-152 [facility] Comment on above: Order Comment: This test is used to monitor heparin levels Performed By: #### H ACT #### [facility] ([facility]) [address] [place] [address] VIR Hemochron Eryn 05-02-2025 ACT Kaolin induced method (Bld) 365 s High 96 - 152 s [facility] ACT Kaolin induced method (Bld) 262 s High 96 - 152 s [facility] Left atrial appendage closur guerline 05-02-2025 [facility] Radiology Study observation (narrative) [facility] No Panel Informationon 05-02 Successful implantation of [...] Meniere's disease, HTN, long-standing persistent AF w/ [id number] 3 on apixaban 5 mg BID, s/p [...] check scheduled 05/10/25, and return visit with pr 07/26/25 at [facility]. Emiliano Alaniz MD/[place] Cardiac Electrophysiology XPER Interpretation and review of laboratory results Abnormal [facility] This test is used to monitor heparin levels [facility] BASIC METABOLIC PANELon 04-08 Anion gap [Moles/Vol] 9 mmol/L Normal 5-15 [facility] Comment on above: Performed By: #### C MP, CBCA #### [facility] ([id number]) [address] [place] [address] Calcium [Mass/Vol] 9.1 mg/dL Normal 8.5-10.5 [facility] Comment on above: Performed By: #### C MP, CBCA #### [facility] ([id number]) [address] [place] [address] Chloride [Moles/Vol] 109 mmol/L Normal 98-109 [facility] Comment on above: Performed By: #### C MP, CBCA #### [facility] ([id number]) [address] [place] [address] CO2 [Moles/Vol] 24 mmol/L Normal 22-32 [facility] Comment on above: Performed By: #### C MP, CBCA #### [facility] ([id number]) [address] [place] [address] Creatinine [Mass/Vol] 1.59 mg/dL High 0.60-1.30 [facility] Comment on above: Result Comment: METH OD TRACEABLE TO IDMS STANDARD Performed By: #### C VERONICA WOODWARDA #### [facility] ([id number]) [address] [place] [address] GFR/1.73 sq M.predicted among non-blacks MDRD (S/P/Bld) [Vol rate/Area] 44 mL/min/{1.73_m2} Low >=60 [facility] Comment on above: Result Comment: Repo rted eGFR is based on the CKD-EPI 2020 equation that does not use a race coefficient. Performed By: #### C VERONICA WOODWARDA #### [facility] ([id number]) [address] [place] [address] Glucose [Mass/Vol] 88 mg/dL Normal 65-99 [facility] Comment on above: Performed By: #### C VERONICA WOODWARDA #### [facility] ([id number]) [address] [place] [address] Potassium [Moles/Vol] 4.1 mmol/L Normal 3.5-5.0 [facility] Comment on above: Performed By: #### C VERONICA WOODWARDA #### [facility] ([id number]) [address] [place] [address] Sodium [Moles/Vol] 142 mmol/L Normal 134-146 [facility] Comment on above: Performed By: #### C TRACE CBCA #### [facility] ([id number]) [address] [place] [address] 6[address] Urea nitrogen [Mass/Vol] 24 mg/dL Normal 5-27 [facility] Comment on above: Performed By: #### C TRACE CBCA #### [facility] ([id number]) [address] [place] [address] CBC WITH AUTO DIFFERENTIALon 04-25-2025 BASOPHILS ABSOLUTE COUNT (10*3/UL) BY AUTOMATED COUNT 0.1 10*3/uL Normal 0.0-0.2 [facility] Comment on above: Performed By: #### C MP, CBCA #### [facility] ([id number]) [address] [place] [address]155 BASOPHILS RELATIVE PERCENT BY AUTOMATED COUNT 1.3 % Normal [facility] Comment on above: Performed By: #### C MP, CBCA #### [facility] ([id number]) [address] [place] [address] 76735 CELLAVISION DIFFERENTIAL TYPE AUTOMATED DIFFERENTIAL Normal [facility] Comment on above: Performed By: #### C MP, CBCA #### [facility] ([id number]) [address] [place] [address]251 Eosinophils (Bld) [#/Vol] 0.3 10*3/uL Normal 0.0-0.4 [facility] Comment on above: Performed By: #### C TRACE, CBCA #### [facility] ([id number]) [address] [place] [address] 31878 EOSINOPHILS RELATIVE PERCENT BY AUTOMATED COUNT 5.6 % Normal [facility] Comment on above: Performed By: #### C MP, CBCA #### [facility] ([id number]) [address] [place] [address] 21737 Erythrocyte distribution width (RBC) [Ratio] 14.9 % Normal 11.5-15 [facility] Comment on above: Performed By: #### C MP, CBCA #### [facility] ([id number]) [address] [place] [address] 95295 Hematocrit (Bld) [Volume fraction] 38.1 % Low 39-50 [facility] Comment on above: Performed By: #### C MP, CBCA #### [facility] ([id number]) [address] [place] [address] 94350 Hemoglobin (Bld) [Mass/Vol] 12.6 g/dL Low 13-17 [facility] Comment on above: Performed By: #### C MP, CBCA #### [facility] ([id number]) [address] [place] [address] 15796 LYMPHOCYTES ABSOLUTE COUNT (10*3/UL) BY AUTOMATED COUNT 1.0 10*3/uL Normal 1.0-3.5 [facility] Comment on above: Performed By: #### C MP, CBCA #### [facility] ([id number]) [address] [place] [address] 11593 LYMPHOCYTES RELATIVE PERCENT BY AUTOMATED COUNT 18.4 % Normal [facility] Comment on above: Performed By: #### C MP, CBCA #### [facility] ([id number]) [address] [place] [address] 96050 MCH (RBC) [Entitic mass] 28.0 pg Normal 27-34 [facility] Comment on above: Performed By: #### C MP, CBCA #### [facility] ([id number]) [address] [place] [address] 36572 MCHC (RBC) [Mass/Vol] 33.2 g/dL Normal 32-36 [facility] Comment on above: Performed By: #### C MP, CBCA #### [facility] ([id number]) [address] [place] [address] 51646 MCV (RBC) [Entitic vol] 85 fL Normal 80-100 [facility] Comment on above: Performed By: #### C MP, CBCA #### [facility] ([id number]) [address] [place] [address] 17523 MONOCYTES ABSOLUTE COUNT (10*3/UL) BY AUTOMATED COUNT 0.4 10*3/uL Normal 0.0-0.9 [facility] Comment on above: Performed By: #### C MP, CBCA #### [facility] ([id number]) [address] [place] [address] 24858 MONOCYTES RELATIVE PERCENT BY AUTOMATED COUNT 6.6 % Normal [facility] Comment on above: Performed By: #### C MP, CBCA #### [facility] ([id number]) [address] [place] [address] 41043 NEUTROPHILS ABSOLUTE COUNT BY AUTOMATED COUNT 3.7 10*3/uL Normal 1.5-6.6 [facility] Comment on above: Performed By: #### C MP, CBCA #### [facility] ([id number]) [address] [place] [address] 28846 NEUTROPHILS RELATIVE PERCENT BY AUTOMATED COUNT 68.1 % Normal [facility] Comment on above: Performed By: #### C MP, CBCA #### [facility] ([id number]) [address] [place] [address] 83452 Platelet mean volume (Bld) [Entitic vol] 7.2 fL Normal 7-12 [facility] Comment on above: Performed By: #### C MP, CBCA #### [facility] ([id number]) [address] [place] [address] 85964 Platelets (Bld) [#/Vol] 245 10*3/uL Normal 150-450 [facility] Comment on above: Performed By: #### C MP, CBCA #### [facility] ([id number]) [address] [place] [address] 13162 RBC COUNT 4.50 X10E12/L Normal 4.1-5.7 [facility] Comment on above: Performed By: #### C MP, CBCA #### [facility] ([id number]) [address] [place] [address] 09455 WBC (Bld) [#/Vol] 5.5 10*3/uL Normal 4-11 [facility] Comment on above: Performed By: #### C MP, CBCA #### [facility] ([id number]) [address] [place] [address] MAGNESIUMon 04-25-2025 Magnesium [Mass/Vol] 2.1 mg/dL Normal 1.8-2.6 [facility] Comment on above: Performed By: #### C MP, CBCA #### [facility] ([id number]) [address] [place] [address] XR UROGRAPHY IVP W OR WO IRMA OSon 04-23-2025 XR UROGRAPHY IVP W OR WO TOMOS XR UROGRAPHY IVP W OR WO TOMOS Clinical history: Ureteral stone. IVP: 04/23/2025 FINDINGS: Supine handkerchief folder images the abdomen were obtained. There are [...] Peterson MD on 04/23/2025 10:31 AM Normal [facility] Ambulatory Visit Summaryon 0 04-19-2025 Ambulatory Visit [...] Medina BUTLER MD Where: [facility] [address] [address]- You Need to Schedule the Following Appointments Follow Up with Medina BUTLER MD, URL When: Where: [address] [place] [address]- Medications What How Much When Instructions Unchanged [...] include vitamins, herbs, eye drops, creams, and lcrt-ytd-tzkvltn medicines. ??? Any problems you or family [...] medicines. ? Vitamins, herbs, and supplements. ? Kovh-qmf-gxaanvd medicines. ??? You may need to remove glasses, jewelry, and any other metal objects. ??? You may be asked to put on a hospital gown. What happens during the procedure? You will lie down on an exam table. ??? An IV tube will be inserted into o (more content not included)... Normal [facility] Urology Office/Clinic Noteon 04-19-2025 Urology Office/Clinic Note Urology Office/Clinic Note Chief Complaint Pt here for ER folow up HPI Staff Pt is a 80 year old male here for an ER follow up Pt was seen at [facility] ED on 03/29/25 for persistent rt flank [...] Hydronephrosis with renal and ureteral calculous obstruction) [facility] ER 03/29/25 with R flank pain and [...] strainer. states that their son is a [employer] who suggested they strain his urine. states [...] bid x 10 days -Schedule IVP at [facility], pt to be called with results 2. BPH with obstruction/lower urinary tract symptoms (N40.1: Benign prostatic hyperplasia with lower urinary tract symptoms) PSA 08/17/24 - 0.99 S/p TURP 11/01/24 - Neg. IPSS 11 (8) Taking Finasteride 5 mg qd and Flomax 0.4 mg bid (increased to bid at prior OV). 3. 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 S/p ablation 08/2022. Normal sinus rhythm since ablation but procedure put him into afib. [2] Watchman procedure scheduled 05/02. Follow-up With When Contact Information Medina BUTLER MD, URL [address] [id number]- Additional Instructions: F/up dependent on IVP results Patient Education Intravenous Pyelogram, Klhf-qd-Msuo Dietary Guidelines to Help Prevent Kidney Stones I, Jacqueline Lerner, personally scribed for Dr. Butler on 04/19/2025 10:15:33. . Documentation recorded by the scribe, Jacqueline Lerner, accurately reflects the services(s) I performed and [...] 20 (more content not included)... Normal [facility] Comment on above: Result Comment: Elec tronically Signed By: Medina BUTLER MD\.br\Date and Time Signed: 04/19/25 10:18 EDT\.br\Electronically Co-Signed By: Jacqueline Lerner\.br\Date and Time Co-Signed: 04/19/25 10:15 EDT No [...] patient tolerated procedure well with no complications [facility] Complexity: Intermediate Final length (cm): 2.6 Subcutaneous layers (deep stitches): Suture size: 5-0 Suture type: Monocryl (poliglecaprone 25) Stitches: Running subcuticular Fine/surface layer approximation (top stitches): Suture size: 5-0 Suture type comment: Surgipro Stitches: simple running Suture removal (days): 7 Post-procedure details: sterile dressing applied and wound care instructions given Dressing type: pressure dressing and petrolatum [facility] for Medicine No Panel InformationOrdered By: Clau Ignacio on 04-18-2025 [facility] [email or web address] e XR ABDOMEN AP 1 VWon 025 [...] Frias MD on 04/15/2025 11:00 AM Normal [facility] APTTon 03-29-2025 aPTT Coag (Bld) [Time] 59 s High 26-37 [facility] Comment on above: Performed By: #### T HYR, 3051-0 #### [facility] ([id number]) [address], [address] [place] [address] CBC WITH AUTO DIFFERENTIALon 03-29-2025 BASOPHILS ABSOLUTE COUNT (10*3/UL) BY AUTOMATED COUNT 0.0 10*3/uL Normal 0.0-0.2 [facility] Comment on above: Performed By: #### C BCA #### [facility] ([address] [address] VIR BASOPHILS RELATIVE PERCENT BY AUTOMATED COUNT 0.5 % Normal [facility] Comment on above: Performed By: #### C BCA #### [facility] ([address] [address] VIR CELLAVISION DIFFERENTIAL TYPE AUTOMATED DIFFERENTIAL Normal [facility] Comment on above: Performed By: #### C BCA #### [facility] ([address] [address] VIR Eosinophils (Bld) [#/Vol] 0.0 10*3/uL Normal 0.0-0.4 [facility] Comment on above: Performed By: #### C BCA #### [facility] ([address] [address] VIR EOSINOPHILS RELATIVE PERCENT BY AUTOMATED COUNT 0.6 % Normal [facility] Comment on above: Performed By: #### C BCA #### [facility] ([address] [address] VIR Erythrocyte distribution width (RBC) [Ratio] 15.0 % Normal 11.5-15 [facility] Comment on above: Performed By: #### C BCA #### [facility] ([address] [address] VIR Hematocrit (Bld) [Volume fraction] 42.7 % Normal 39-50 [facility] Comment on above: Performed By: #### C BCA #### [facility] ([address] [address] VIR Hemoglobin (Bld) [Mass/Vol] 14.5 g/dL Normal 13-17 [facility] Comment on above: Performed By: #### C BCA #### [facility] ([address] [address] VIR LYMPHOCYTES ABSOLUTE COUNT (10*3/UL) BY AUTOMATED COUNT 0.6 10*3/uL Low 1.0-3.5 [facility] Comment on above: Performed By: #### C BCA #### [facility] ([address] [address] VIR LYMPHOCYTES RELATIVE PERCENT BY AUTOMATED COUNT 6.8 % Normal [facility] Comment on above: Performed By: #### C BCA #### [facility] ([address] [address] VIR MCH (RBC) [Entitic mass] 28.0 pg Normal 27-34 [facility] Comment on above: Performed By: #### C BCA #### [facility] ([address] [address] VIR MCHC (RBC) [Mass/Vol] 33.9 g/dL Normal 32-36 [facility] Comment on above: Performed By: #### C BCA #### [facility] ([address] [address] VIR MCV (RBC) [Entitic vol] 83 fL Normal 80-100 [facility] Comment on above: Performed By: #### C BCA #### [facility] ([address] [address] VIR MONOCYTES ABSOLUTE COUNT (10*3/UL) BY AUTOMATED COUNT 0.3 10*3/uL Normal 0.0-0.9 [facility] Comment on above: Performed By: #### C BCA #### [facility] ([address] [address] VIR MONOCYTES RELATIVE PERCENT BY AUTOMATED COUNT 3.6 % Normal [facility] Comment on above: Performed By: #### C BCA #### [facility] [address] [place] [address]. [place] [address] VIR NEUTROPHILS ABSOLUTE COUNT BY AUTOMATED COUNT 7.4 10*3/uL High 1.5-6.6 [facility] Comment on above: Performed By: #### C BCA #### [facility] ([address] [place] [address] VIR NEUTROPHILS RELATIVE PERCENT BY AUTOMATED COUNT 88.5 % Normal [facility] Comment on above: Performed By: #### C BCA #### [facility] ([address] [place] [address] VIR Platelet mean volume (Bld) [Entitic vol] 6.8 fL Low 7-12 [facility] Comment on above: Performed By: #### C BCA #### [facility] ([address] [place] [address] VIR Platelets (Bld) [#/Vol] 211 10*3/uL Normal 150-450 [facility] Comment on above: Performed By: #### C BCA #### [facility] ([address] [place] [address] VIR RBC COUNT 5.17 X10E12/L Normal 4.1-5.7 [facility] Comment on above: Performed By: #### C BCA #### [facility] ([address] [place] [address] VIR WBC (Bld) [#/Vol] 8.3 10*3/uL Normal 4-11 [facility] Comment on above: Performed By: #### C BCA #### [facility] ([address] [place] [address] VIR COMPREHENSIVE METABOLIC PANE John 03-29-2025 Albumin [Mass/Vol] 4.1 g/dL Normal 3.2-5.3 [facility] Comment on above: Performed By: #### T HYR, 3051-0 #### [facility] ([id number]) [address], [address] [place] [address] ALP [Catalytic activity/Vol] 153 U/L High 39-130 [facility] Comment on above: Performed By: #### T CHRISTIAN, #### [facility] ([id number]) [address], [address] [place] [address] ALT [Catalytic activity/Vol] 12 U/L Normal <=40 [facility] Comment on above: Performed By: #### Viktor GONZALES, #### [facility] ([id number]) [address], [address] [place] [address] Anion gap [Moles/Vol] 10 mmol/L Normal 5-15 [facility] Comment on above: Performed By: #### Viktor GONZALES, #### [facility] ([id number]) [address], [address] [place] [address] AST [Catalytic activity/Vol] 17 U/L Normal <=41 [facility] Comment on above: Performed By: #### Viktor GONZALES, #### [facility] ([id number]) [address], [address] [place] [address] Bilirubin [Mass/Vol] 0.9 mg/dL Normal 0.3-1.2 [facility] Comment on above: Performed By: #### T CHRISTIAN, #### [facility] ([id number]) [address], [address] [place] [address] Calcium [Mass/Vol] 8.9 mg/dL Normal 8.5-10.5 [facility] Comment on above: Performed By: #### T CHRISTIAN, #### [facility] ([id number]) [address], [address] [place] [address] Chloride [Moles/Vol] 107 mmol/L Normal 98-109 [facility] Comment on above: Performed By: #### Viktor GONZALES, #### [facility] ([id number]) [address], [address] [place] [address] CO2 [Moles/Vol] 21 mmol/L Low 22-32 [facility] Comment on above: Performed By: #### Viktor GONZALES, #### [facility] ([id number]) [address] [address] [place] [address] Creatinine [Mass/Vol] 1.34 mg/dL High 0.70-1.20 [facility] Comment on above: Result Comment: METH OD TRACEABLE TO IDMS STANDARD Performed By: #### Viktor GONZALES, #### [facility] ([id number]) [address] [address] GFR/1.73 sq M.predicted among non-blacks MDRD (S/P/Bld) [Vol rate/Area] 54 mL/min/{1.73_m2} Low >=60 [facility] Comment on above: Result Comment: eGFR not reported due to non-numeric value for Creatinine. Reported eGFR is based on the CKD-EPI 2020 equation that does not use a race coefficient. Performed By: #### Viktor GONZALES, #### [facility] ([id number]) [address], [address] [place] [address] Glucose [Mass/Vol] 162 mg/dL High 65-99 [facility] Comment on above: Performed By: #### Viktor GONZALES, #### [facility] ([id number]) [address] [address] [place] [address] Potassium [Moles/Vol] 4.1 mmol/L Normal 3.5-5.0 [facility] Comment on above: Performed By: #### Viktor GONZALES, 3051-0 #### [facility] ([id number]) [address], [address] [place] [address] Protein [Mass/Vol] 7.4 g/dL Normal 6.0-8.0 [facility] Comment on above: Performed By: #### T HYR, 3051-0 #### [facility] ([id number]) [address], [address] [place] [address] Sodium [Moles/Vol] 138 mmol/L Normal 134-146 [facility] Comment on above: Performed By: #### T HYR, 305-0 #### [facility] ([id number]) [address], [address] [place] [address] Urea nitrogen [Mass/Vol] 19 mg/dL Normal 5-27 [facility] Comment on above: Performed By: #### T HYR, 305-0 #### [facility] ([id number]) [address], [address] [place] [address] CT ABDOMEN AND PELVIS WO CON Ton [...] Eckert MD on 03/29/2025 10:20 AM Normal [facility] CT BRAIN WO CONTon 5 CT BRAIN WO CONT CT BRAIN [...] Tran MD on 03/29/2025 10:01 AM Normal [facility] CT CHEST WO CONTon 5 CT CHEST [...] detection for pulmonary nodules was performed utilizing [employer] software. FINDINGS: Please note, assessment of the [...] Shook MD on 03/29/2025 10:10 AM Normal [facility] CT FACIAL BONES WO CONTon CT FACIAL [...] Alexander MD on 03/29/2025 10:03 AM Normal [facility] CT LUMBAR SPINE WO CONTon CT LUMBAR [...] Shook MD on 03/29/2025 10:18 AM Normal [facility] LIPASEon 03-29-2025 Lipase [Catalytic activity/Vol] 30 U/L Normal 17-40 [facility] Comment on above: Performed By: #### T HYR, 3051-0 #### [facility] ([id number]) [address] [facility], [address] [place] [address] POCT NURSING URINE MACROSCOP IC UAon 03-29-2025 BILIRUBIN FERNANDEZ Negative Normal Negative [facility] Comment on above: Performed By: #### T HYR, 3051-0 #### [facility] ([id number]) [address] [place] [address] BLOOD/HGB FERNANDEZ Large Abnormal Negative [facility] Comment on above: Performed By: #### Viktor GONZALES, #### [facility] ([id number]) [address] [place] [address] GLUCOSE FERNANDEZ Negative Normal Negative [facility] Comment on above: Performed By: #### Viktor GONZALES, #### [facility] ([id number]) [address], [address] [place] [address] KETONES FERNANDEZ Negative Normal Negative [facility] Comment on above: Performed By: #### Viktor GONZALES, #### [facility] ([id number]) [address], [address] [place] [address] LEUKOCYTE ESTERASE FERNANDEZ Negative Normal Negative [facility] Comment on above: Performed By: #### Viktor GONZALES, #### [facility] ([id number]) [address] [place] [address] NITRITE FERNANDEZ Negative Normal Negative [facility] Comment on above: Performed By: #### Viktro GONZALES, #### [facility] ([id number]) [address], [address] [place] [address] PH FERNANDEZ 6.5 Normal 5.0, 6.0, 6.5, 7.0, 7.5, 8.0, 8.5, 5.5 [facility] Comment on above: Performed By: #### Viktor GONZALES, 0 #### [facility] ([id number]) [address] [place] [address] PROTEIN FERNANDEZ Trace Abnormal Negative [facility] Comment on above: Performed By: #### Viktor GONZALES, 0 #### [facility] ([id number]) [address], [address] [place] [address] SPECIFIC GRAVITY FERNANDEZ 1.025 Normal 1.010, 1.015, 1.020, 1.025 [facility] Comment on above: Performed By: #### T CHRISTIAN, 0 #### [facility] ([id number]) [address] [facility], [address] [place] [address] UROBILINOGEN FERNANDEZ 0.2 E.U./dL Normal [facility] Comment on above: Performed By: #### T CHRISTIAN, 0 #### [facility] ([id number]) [address] [facility], [address] [place] [address] PROTIME AND INRon 03-29-2025 INR 1.2 Normal 0.9-1.2 [facility] Comment on above: Performed By: #### P INR #### [facility] ([facility]) [address] [place] [address] VIR PT Coag (PPP) [Time] 14.2 s High 9.8-13.2 [facility] Comment on above: Performed By: #### P INR #### [facility] ([address] [address] VIR TROP I, HIGH SENSITIVITY 1 H OURon 03-29-2025 TROPONIN I, HIGH SENSITIVITY 6 ng/L Normal <21 [facility] Comment on above: Performed By: #### C MP, CBCA #### [facility] ([id number]) [address] [place] [address], [place] [address] TROPONIN I, HIGH SENSITIVITY 0 HOURon 03-29-2025 TROPONIN I, HIGH SENSITIVITY 4 ng/L Normal <21 [facility] Comment on above: Performed By: #### T HYR, 0 #### [facility] ([id number]) [address] [facility] [place] [address] URINE CULTUREon 08-22-2025 Bacteria identified Cx Nom (U) CULTURE RESULTS <10,000 ORGANISMS/mL NORMAL URO GENITAL TAMMY [facility] Comment on above: Performed By: #### C TRACE, CBCA #### [facility] ([id number]) [address] [place] [address], [place] [address] No Panel Informationon 03-12 Type of biopsy: [...] details: Photo taken Amount of lidocaine used: [address] [place] [address] [employer] Type of biopsy: tangential Informed [...] Photo taken Amount of lidocaine used: 1cc [facility] [employer] [facility] Type of biopsy: tangential Informed consent: [...] details: Photo taken Amount of lidocaine used: [address] [place] [address] [employer] Ambulatory Visit Summaryon 0 02-25-2025 Ambulatory [...] Following Appointments Follow Up with CARRIE PALMA, ALEXX Deluna When: Where: [facility] [address], [place] [address] Medications What How Much When Instructions Changed finasteride (finasteride 5 mg Tab) 5 Milligram By Mouth 2 times a day Duration: [address] [facility] Unchanged apixaban (Eliquis 5 mg [...] physician if questions or concerns Pharmacy Information [facility]: [address] [place], [place] [id number] [phone] Allergies No Known Allergies Problems Ongoing - [...] ??? An (more content not included)... Normal [facility] Urology Office/Clinic Noteon 02-25-2025 Urology Office/Clinic [...] infection or infection sx 2. 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 S/p ablation 08/2022. Normal sinus rhythm since ablation but procedure put him into afib. [2] reports pt is no longer in Afib and is going to have watchman. Follow-up With When Contact Information CARRIE PALMA, Medina R, URL [facility] [address], [place] [address]- Additional Instructions: 1 yr no labs Patient [...] 10/09/2020 Skip (more content not included)... Normal [facility] Comment on above: Result Comment: Elec tronically Signed By: Medina BUTLER MD\.br\Date and Time Signed: 02/25/25 14:10 EDT\.br\Electronically Co-Signed By: Sofy Harrison\.br\Date and Time Co-Signed: 02/25/25 14:09 EDT T3, FREEon 02-19-2025 Free T3 [Mass/Vol] 4.16 pg/mL High 2.50-3.90 [facility] Comment on above: Performed By: #### F T3 #### [facility] ([facility]) [address] [place] [address] VIR THYROID PROFILE INCLUDES TSH FT4on 02-19-2025 Free T4 [Mass/Vol] 0.67 ng/dL Normal 0.61-1.60 [facility] Comment on above: Performed By: #### T HYR #### [facility] ([facility]) [address] [place] [address] VIR TSH 20.09 uIU/mL High 0.49-4.67 [facility] Comment on above: Performed By: #### T HYR #### [facility] ([facility]) [address] [place] [address] VIR POCT EKGon 02-13-2025 [facility] CBC AND AUTO DIFFon 12-01-19 25 ABSOLUTE BASOPHIL 0.1 X10E9/L Normal 0.0-0.2 [facility] Comment on above: Performed By: #### C MP, CBCA #### [facility] ([id number]) [address] [place] [address], [place] [address] ABSOLUTE NEUTROPHIL 4.9 X10E9/L Normal 1.5-6.6 [facility] Comment on above: Performed By: #### C MP, CBCA #### [facility] ([id number]) [address] [place] [address] Basophils/100 WBC (Bld) 0.7 % Normal [facility] Comment on above: Performed By: #### C MP, CBCA #### [facility] ([id number]) [address] [place] [address] Eosinophils (Bld) [#/Vol] 0.4 10*3/uL Normal 0.0-0.4 [facility] Comment on above: Performed By: #### C MP, CBCA #### [facility] ([id number]) [address] [place] [address] Eosinophils/100 WBC (Bld) 5.1 % Normal [facility] Comment on above: Performed By: #### C MP, CBCA #### [facility] ([id number]) [address] [place] [address] Erythrocyte distribution width (RBC) [Ratio] 16.6 % High 11.5-15.0 [facility] Comment on above: Performed By: #### C TRACE, CBCA #### [facility] ([id number]) [address] [place] [address] Hematocrit (Bld) [Volume fraction] 38.1 % Low 39-49 [facility] Comment on above: Performed By: #### C MP, CBCA #### [facility] ([id number]) [address] [place] [address] Hemoglobin (Bld) [Mass/Vol] 12.9 g/dL Low 13.0-17.0 [facility] Comment on above: Performed By: #### C MP, CBCA #### [facility] ([id number]) [address] [place] [address] Lymphocytes (Bld) [#/Vol] 1.3 10*3/uL Normal 1.0-3.5 [facility] Comment on above: Performed By: #### C MP, CBCA #### [facility] ([id number]) [address] [place] [address] Lymphocytes/100 WBC (Bld) 18.2 % Normal [facility] Comment on above: Performed By: #### C MP, CBCA #### [facility] ([id number]) [address] [place] [address] MCH (RBC) [Entitic mass] 29.0 pg Normal 27-34 [facility] Comment on above: Performed By: #### C MP, CBCA #### [facility] ([id number]) [address] [place] [address] MCHC (RBC) [Mass/Vol] 33.7 g/dL Normal 32-36 [facility] Comment on above: Performed By: #### C MP, CBCA #### [facility] ([id number]) [address] [place] [address] MCV (RBC) [Entitic vol] 86 fL Normal 80-100 [facility] Comment on above: Performed By: #### C MP, CBCA #### [facility] ([id number]) [address] [place] [address] Monocytes (Bld) [#/Vol] 0.4 10*3/uL Normal 0-0.9 [facility] Comment on above: Performed By: #### C MP, CBCA #### [facility] ([id number]) [address] [place] [address] Monocytes/100 WBC (Bld) 5.8 % Normal [facility] Comment on above: Performed By: #### C MP, CBCA #### [facility] ([id number]) [address] [place] [address] Neutrophils/100 WBC (Bld) 70.2 % Normal [facility] Comment on above: Performed By: #### C MP, CBCA #### [facility] ([id number]) [address] [place] [address] Platelet mean volume (Bld) [Entitic vol] 6.7 fL Low 7-12 [facility] Comment on above: Performed By: #### C MP, CBCA #### [facility] ([id number]) [address] [place] [address] Platelets (Bld) [#/Vol] 259 10*3/uL Normal 150-450 [facility] Comment on above: Performed By: #### C MP, CBCA #### [facility] ([id number]) [address] [place] [address] RBC COUNT 4.43 X10E12/L Normal 4.10-5.70 [facility] Comment on above: Performed By: #### C MP, CBCA #### [facility] ([id number]) [address] [place] [address] WBC (Bld) [#/Vol] 7.0 10*3/uL Normal 4.0-11.0 [facility] Comment on above: Performed By: #### C MP, CBCA #### [facility] ([id number]) [address] [place] [address] COMPREHENSIVE METABOLIC PANE John 11-30-2024 Albumin [Mass/Vol] 3.8 g/dL Normal 3.2-5.3 [facility] Comment on above: Performed By: #### C MP, CBCA #### [facility] ([id number]) [address] [place] [address] ALP [Catalytic activity/Vol] 187 U/L High 39-130 [facility] Comment on above: Performed By: #### C MP, CBCA #### [facility] ([id number]) [address] [place] [address] [place] [address] ALT [Catalytic activity/Vol] 15 U/L Normal 0-40 [facility] Comment on above: Performed By: #### C TRACE, CBCA #### [facility] ([id number]) [address] [place] [address] Anion gap [Moles/Vol] 7 mmol/L Normal 5-15 [facility] Comment on above: Performed By: #### C TRACE, CBCA #### [facility] ([id number]) [address] [place] [address] AST [Catalytic activity/Vol] 19 U/L Normal 0-41 [facility] Comment on above: Performed By: #### C TRACE, CBCA #### [facility] ([id number]) [address] [place] [address] Bilirubin [Mass/Vol] 0.8 mg/dL Normal 0.3-1.2 [facility] Comment on above: Performed By: #### C TRACE CBCA #### [facility] ([id number]) [address] [place] [address] Calcium [Mass/Vol] 8.7 mg/dL Normal 8.5-10.5 [facility] Comment on above: Performed By: #### C TRACE, CBCA #### [facility] ([id number]) [address] [place] [address] [place] [address] Chloride [Moles/Vol] 108 mmol/L Normal 98-109 [facility] Comment on above: Performed By: #### C TRACE, CBCA #### [facility] ([id number]) [address] [place] [address] [place] [address] CO2 [Moles/Vol] 23 mmol/L Normal 22-32 [facility] Comment on above: Performed By: #### C MP, CBCA #### [facility] ([id number]) [address] [place] [address] Creatinine [Mass/Vol] 1.24 mg/dL High 0.70-1.20 [facility] Comment on above: Result Comment: METH OD TRACEABLE TO IDMS STANDARD Performed By: #### C BECKA WOODWARD #### [facility] ([id number]) [address] [place] [address] GFR/1.73 sq M.predicted among non-blacks MDRD (S/P/Bld) [Vol rate/Area] 59 mL/min/{1.73_m2} Low >59 [facility] Comment on above: Result Comment: Reported eGFR is based on the CKD-EPI 2020 equation that does not use a race coefficient. Performed By: #### C BECKA WOODWARD #### [facility] ([id number]) [address] [place] [address] Glucose [Mass/Vol] 154 mg/dL High 65-99 [facility] Comment on above: Performed By: #### C BECKA WOODWARD #### [facility] ([id number]) [address] [place] [address] Potassium [Moles/Vol] 3.8 mmol/L Normal 3.5-5.0 [facility] Comment on above: Performed By: #### C BECKA WOODWARD #### [facility] ([id number]) [address] [place] [address] Protein [Mass/Vol] 7.1 g/dL Normal 6.0-8.0 [facility] Comment on above: Performed By: #### C BECKA WOODWARD #### [facility] ([id number]) [address] [place] [address] Sodium [Moles/Vol] 138 mmol/L Normal 134-146 [facility] Comment on above: Performed By: #### C BECKA WOODWARD #### [facility] ([id number]) [address] [place] [address] Urea nitrogen [Mass/Vol] 15 mg/dL Normal - [facility] Comment on above: Performed By: #### C MP, CBCA #### [facility] ([id number]) [address] [place] [address] Lactate (P júnior) [Moles/Vol]o n 11-30-2024 LACTATE W/REFLEX 1.7 mmol/L Normal 0.4-2.0 [facility] Comment on above: Result Comment: Result did not trigger repeat Lactate, re-order if needed. Performed By: #### 3 2133-1 #### [facility] ([id number]) [address] [place] [address] FERNANDEZ FECAL OCCULT BLDon 11-30 Hemoglobin.gastrointe stinal Ql (Stl) Positive Abnormal NEG [facility] Comment on above: Performed By: #### 2 335-8 #### [facility] ([id number]) [address] [place] [address] Ambulatory Visit Summaryon 0 11-16-2024 Ambulatory Visit Summary Ambulatory Visit Summary SINGH BOWMAN :1945 Visit Date:11/16/2024 Ambulatory Visit Instructions Your Diagnosis BPH with obstruction/lower urinary tract symptoms Gross hematuria Anticoagulated Your Care Team Attending Physician - CARRIE PALMA, Medina Vazquez Primary Care Physician - RACHID PALMA, MARIELA Powell This Is Your Medications List finasteride tamsulosin [...] Following Appointments Follow Up with CARRIE PALMA, ALEXX Deluna When: Where: [facility] [address] [place] [address]- Medications What How Much When Instructions Unchanged [...] uses so (more content not included)... Normal [facility] Urology Office/Clinic Noteon 11-16-2024 Urology Office/Clinic [...] addition to other fluids 3. 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 S/p ablation 08/2022. Normal sinus rhythm since ablation but procedure put him into afib. Has been monitoring at home and sinus rhythm has been normal the past 7 days. -Pt to discuss w cardiology if BT can be decrease or changed given #2 Follow-up With When Contact Information CARRIE PALMA, Medina Vazquez, URL [facility] [address], [place] [address]- Additional Instructions: 3 mos with UA Patient [...] Tobacco Use: (more content not included)... Normal [facility] Comment on above: Result Comment: Elec tronically Signed By: Medina BUTLER MD\.br\Date and Time Signed: 11/16/24 11:42 EDT\.br\Electronically Co-Signed By: Sofy Harrison P\.br\Date and Time Co-Signed: 11/16/24 11:33 EDT\.br\Electronically Co-Signed By: Sofy Harrison P\.br\Date and Time Co-Signed: 11/16/24 11:35 EDT\.br\Electronically Co-Signed By: Sofy Harrison\.br\Date and Time Co-Signed: 11/16/24 11:36 EDT\.br\Electronically Co-Signed By: Sofy Harrison\.br\Date and Time Co-Signed: 11/16/24 11:37 EDT FREE T3on 11-13-2024 Free T3 [Mass/Vol] 3.01 pg/mL Normal 2.50-3.90 [facility] Comment on above: Performed By: #### Viktor GONZALES, 0 #### [facility] ([id number]) [address] [address] [facility], [address] [place] [address] THYROID PROFILEon 11-13-2024 Free T4 [Mass/Vol] 0.97 ng/dL Normal 0.61-1.60 [facility] Comment on above: Performed By: #### Viktor GONZALES, 0 #### [facility] ([id number]) [address] [address] [place] [address] TSH 0.09 uIU/mL Low 0.49-4.67 [facility] Comment on above: Performed By: #### Viktor GONZALES, 0 #### [facility] ([id number]) [address] [address] [place] [address] POCT EKGon 11-07-[address] [facility] Ambulatory Visit Summaryon 0 11-05-2024 Ambulatory Visit Summary Ambulatory Visit Summary SINGH BOWMAN :1945 Visit Date:11/05/2024 Ambulatory Visit Instructions Your Care Team Attending Physician - CARRIE PALMA, Medina Vazquez Primary Care Physician - MARIELA RASHID MD This Is Your Medications List apixaban (Eliquis 5 mg oral tablet) atorvastatin (atorvastatin 20 mg Tab) ciprofloxacin (Cipro 500 mg Tab) finasteride metoprolol predniSONE (predniSONE 20 mg Tab) tamsulosin (tamsulosin 0.4 mg Cap) Procedures Performed Cystoscopy (09/11/2024), Appendectomy, Cataracts, Cholecystectomy, Colonoscopy, Tonsillectomy. What to do next Scheduled Follow-Up Appointments Tuesday 10:45 AM EDT With: CARRIE PALMA, Medina Vazquez Where: [facility] [address] [place] [address] [place] [address]- Medications What How Much When Instructions Unchanged [...] for choosing us for your care. Normal [facility] APTTon 11-01-2024 aPTT Coag (Laura) [Time] 36.2 s [facility] No Panel Informationon 11-01 [facility] W/O COUMon 11-01-2024 PT Coag (PPP) [Time] 11.3 s [facility] Comment on above: DESIRED INR: 2.0-3.0 CONDITIONS NOT LISTED BELOW 2.5-3.5 FOR PROSTHETIC HEART VALVE REPLACEMENT 2.5-3.5 RECURRENT THROMBOSIS ALL BASIC METABOLIC PANELon 10-17-2024 Anion gap [Moles/Vol] 10.8 mmol/L [facility] Calcium [Mass/Vol] 8.8 mg/dL 8.5 - 10. 1 mg/dL [facility] Chloride [Moles/Vol] 104 mmol/L 98 - 10 7 mmol/L [facility] CO2 [Moles/Vol] 27.4 mmol/L 21.0 - 32.0 mmol/L [facility] Creatinine [Mass/Vol] 1.27 mg/dL 0.70 - 1.30 mg/dL [facility] GFR/1.73 sq M.predicted CKD-EPI (S/P/Bld) [Vol rate/Area] >60 >=60 mL/min/1.73m 2 [facility] Glucose [Mass/Vol] 112 mg/dL High 74 - 106 mg/dL [facility] Interpretation and review of laboratory results Abnormal [facility] Potassium [Moles/Vol] 4.2 mmol/L 3.5 - 5.1 mmol/L [facility] Sodium [Moles/Vol] 138 mmol/L 136 - 145 mmol/L [facility] EGFR-NON AF TONGAN 55 Low >=60 mL/min/1.73m 2 [facility] Urea nitrogen [Mass/Vol] 17 mg/dL 7.0 - 18.0 mg/dL [facility] Urea nitrogen/Creatinine [Mass ratio] 13.4 mg/mg [facility] ECG 12-LEADon 10-17-[address] [address] Electrocardiograph Report Signed Patient: SINGH BOWMAN MR#: [id number] : 1945 Acct:[id number] Age/Sex: 79 / M ADM Date: 10/17/24 Loc: PST Attending Dr: Medina Butler M.D. Ordering Physician: Medina Butler M.D. Date of Service: 10/17/24 Procedure(s): ECG 12 lead Accession Number(s): [id number] cc: [facility] Test Date: 2024-10-17 Pat Name: SINGH BOWMAN Department: Room: - Gender: Male Blender: : 1945 Requested By: MEDINA BUTLER Order Number: [id number] Reading MD: DWIGHT BARNETT M.D. Measurements Intervals [place] Rate: 78 P: MD: QRS: 12 QRSD: 99 T: 62 QT: 390 QTc: 445 Interpretive Statements ATRIAL FIBRILLATION NONSPECIFIC T-WAVE ABNORMALITY ABNORMAL RHYTHM ECG No previous ECG available for comparison Electronically Signed On 10-17-2024 18:41:51 EDT by DWIGHT BARNETT M.D. Dictated By: DWIGHT BARNETT Signed By: 10/17/24 1841 DD/ 1425 TD/TT: Mother Repairer: [facility] Radiology, Radiologist, MD - 10/17/2024 [place] [address] Electrocardiograph Report Signed Patient: SINGH BOWMAN MR#: [id number] : 1945 Acct:[id number] Age/Sex: 79 / M ADM Date: 10/17/24 Loc: PST Attending Dr: Medina Butler M.D. Ordering Physician: Medina Butler M.D. Date of Service: 10/17/24 Procedure(s): ECG 12 lead Accession Number(s): [id number] cc: [facility] Test Date: 2024-10-17 Pat Name: SINGH BOWMAN Department: Room: - Gender: Male Blender: : 1945 Requested By: MEDINA BUTLER Order Number: [id number] Reading MD: DWIGHT BARNETT M.D. Measurements Intervals [place] Rate: 78 P: MD: QRS: 12 QRSD: 99 T: 62 QT: 390 QTc: 445 Interpretive Statements ATRIAL FIBRILLATION NONSPECIFIC T-WAVE ABNORMALITY ABNORMAL RHYTHM ECG No previous ECG available for comparison Electronically Signed On 10-17-2024 18:41:51 EDT by DWIGHT BARNETT M.D. Dictated By: DWIGHT BARNETT Signed By: 10/17/24 1841 DD/ 1425 TD/TT: Mother Repairer: [facility] Radiology Study observation (narrative) [facility] ECG 12-LEADOrdered By: Radio logist Radiology on 10-17-2024 [facility] [email or web address] Work Phone: XR CHEST 2Von 10-17-2024 [place] [address] XRay Report Signed Patient: SINGH BOWMAN MR#: [id number] : 1945 Acct:[id number] Age/Sex: 79 / M ADM Date: 10/17/24 Loc: [facility] Attending Dr: Medina Butler M.D. Ordering Physician: Medina Butler M.D. Date of Service: 10/17/24 Procedure(s): XR chest 2V Accession Number(s): [id number] cc: MARIELA RASHID ; Medina Butler M.D. [place] [id number] Patient Name: SINGH BWOMAN MRN: [id number] date: 1945 Sex: M Assigned Patient Location: [facility] Current Patient Location: [facility] Accession/Order Number: [id number] Exam Date: 10/17/2024 17:53 Report Date: 10/17/2024 [...] Nii Minaya M.D.10/17/2024 5:55 PM Dictation Location: RADIO-PC-20 Electronically authenticated by: [id number] Y Date: 10/17/2024 17:55 Dictated By: Nii Minaya D.O. Signed By: 10/17/241757 DD/ 54 TD/TT: Mother Repairer: [facility] Radiology, Radiologist, - 10/17/2024 [place] [address] XRay Report Signed Patient: SINGH BOWMAN MR#: [id number] : 1945 Acct:[id number] Age/Sex: 79 / M ADM Date: 10/17/24 Loc: [facility] Attending Dr: Medina Butler M.D. Ordering Physician: Medina Butler M.D. Date of Service: 10/17/24 Procedure(s): XR chest 2V Accession Number(s): [id number] cc: MARIELA RASHID ; Medina Butler M.D. [place] [address] Patient Name: SINGH BOWMAN MRN: [facility]:[id number] date: 1945 Sex: M Assigned Patient Location: [facility] Current Patient Location: [facility] Accession/Order Number: [id number] Exam Date: 10/17/2024 17:53 Report Date: 10/17/2024 [...] Nii Minaya M.D.10/17/2024 5:55 PM Dictation Location: [facility]PC-20 Electronically authenticated by: [id number] Y Date: 10/17/2024 17:55 Dictated By: Nii Minaya D.O. Signed By: 10/17/241757 DD/ 54 TD/TT: Mother Repairer: [facility] [facility] Radiology Study observation (narrative) [facility] [facility] XR CHEST 2VOrdered By: Radio logist Radiology on 10-17-2024 [employer] Work Phone: Ambulatory Visit Summaryon 0 [...] AM EDT With: Where: [facility] of [address] [address]- Tuesday 10:45 AM EDT With: Medina BUTLER MD Where: [facility] [address] [address]- You Need to Schedule the Following Appointments Follow Up with Medina BUTLER MD, URL When: Where: [facility] [address] [place] [address]- Medications What How Much When Instructions Unchanged [...] these instructions at home: Medicines ??? Take misu-ttq-wkvaoej and prescription medicines only as told by [...] is s (more content not included)... Normal [facility] Urology Office/Clinic Noteon 09-11-2024 Urology Office/Clinic [...] Vazquez, URL [facility] [address] [place] [address]- Additional Instructions: schedule TURP Patient Education Transurethral Resection of the Prostate, Care After Transurethral Resection of the Prostate Sofy Dennis, personally scribed for Dr. Butler on 09/11/2024 14:10:41. . Documentation recorded by the scribeSofy, accurately reflects the services(s) I performed and [...] and Father. (more content not included)... Normal [facility] Comment on above: Result Comment: Elec tronically Signed By: Medina BUTLER MD\.br\Date and Time Signed: 09/11/24 14:13 EST\.br\Electronically Co-Signed By: Sofy Harrison\.br\Date and Time Co-Signed: 09/11/24 14:10 EST Ambulatory Visit Summaryon 0 09-10-2024 Ambulatory Visit Summary Ambulatory Visit Summary SINGH BOWMAN Eduardo :1945 Visit Date:09/10/2024 Ambulatory Visit Instructions Your [...] Following Appointments Follow Up with CARRIE PALMA, ALEXX Deluna When: Comments: sched cysto Where: [facility] [address] , [place] [phone] Medications What How Much When Instructions New ciprofloxacin (Cipro 500 mg Tab) 1 Tablets By Mouth Every day take one tab day before procedure and one tab after procedure Pickup at [facility] Unchanged apixaban (Eliquis 5 mg [...] physician if questions or concerns Pharmacy Information [facility]: [address] [place], [place] [id number] [phone] Allergies No Known Allergies Problems Ongoing - [...] including vitamins, herbs, eye drops, creams, and lrwq-dos-cngzmak medicines. ??? Any problems you or family [...] tells you to take them. ??? Taking fmjx-boy-vdrbwfn medicines, vitamins, herbs, and supplements. Tests You may have an exam or testing, such as: ??? X-rays o (more content not included)... Normal [facility] US THYROIDon 08-24-2024 US THYROID EXAM: [...] report is generated using voice recognition reporting ([employer] On occasion [employer] erroneously drops words from the report or replaces the spoken word with similar sounding words. Please call with any questions/concerns regarding this report.* Dictated and transcribed 08/24/2024/robert This report has been electronically signed and approved by the interpreting radiologist. Normal Not Available POCT EKGon 11-16-2023 [facility] Vital Signs Date Time Vital Sign Value Performing Clinician Faci lity 05-02-2025 18:00-0400 Diastolic blood pressure 77 mm[Hg] Emiliano Alaniz MD Work Phone: [facility] 05-02-2025 18:00-0400 Heart rate 66 /min Emiliano Alaniz MD Work Phone: [facility] [email or web address] [facility] 05-02-2025 18:00-0400 Respiratory rate 14 /min Emiliano Alaniz MD Work Phone: [facility] 05-02-2025 18:00-0400 SaO2% (BldA) [Mass fraction] 96 % Emiliano Alaniz MD Work Phone: [facility] 05-02-2025 18:00-0400 Systolic blood pressure 136 mm[Hg] Emiliano Alaniz MD Work Phone: [facility] [email or web address] [facility] 05-02-2025 15:32-0400 Body temperature 96.8 [degF] Emiliano Alaniz MD Work Phone: [facility] [email or web address] [facility] 05-02-2025 12:29-0400 Body height 188 cm [facility]iliano Alaniz MD [facility] 05-02-2025 12:29-0400 Body mass index (BMI) [Ratio] 25.68 kg/m2 Emiliano Alaniz MD Work Phone: [facility] 05-02-2025 12:29-0400 Body weight 90.72 kg Emiliano Alaniz MD Work Phone: [facility] 04-22-2025 09:25-0400 Body height 186.7 cm Zeb Decker DPM Work Phone: [facility] 04-22-2025 09:25-0400 Body mass index (BMI) [Ratio] 25.9 kg/m2 Zeb Jeronimo DPM Work Phone: [facility] 04-22-2025 09:25-0400 Body weight 90.27 kg Zeb Jeronimo DPM Work Phone: [facility] 04-10-2025 10:26-0400 Body height 188 cm Mariela Rashid MD Work Phone: [facility] 04-10-2025 10:26-0400 Body mass index (BMI) [Ratio] 25.5 kg/m2 Mariela Rashid MD Work Phone: [facility] 04-10-2025 10:26-0400 Body weight 90.08 kg Mariela Rashid MD Work Phone: [facility] 04-10-2025 10:26-0400 Diastolic blood pressure 78 mm[Hg] Mariela Rashid MD Work Phone: [facility] 04-10-2025 10:26-0400 Heart rate 78 /min Mariela Rashid MD Work Phone: [facility] 04-10-2025 10:26-0400 Respiratory rate 18 /min Mariela Rashid MD Work Phone: [facility] 04-10-2025 10:26-0400 SaO2% (BldA) [Mass fraction] 98 % Mariela Rashid MD Work Phone: [facility] 04-10-2025 10:26-0400 Systolic blood pressure 124 mm[Hg] Mariela Rashid MD Work Phone: [facility] 03-18-2025 10:15-0400 Body height 185.4 cm Gabrielle Alvarado MD Work Phone: [facility] 03-18-2025 10:15-0400 Body mass index (BMI) [Ratio] 27.31 kg/m2 Gabrielle Alvarado MD Work Phone: [facility] 03-18-2025 10:15-0400 Body weight 93.89 kg Gabrielle Alvarado MD Work Phone: [facility] 03-18-2025 10:15-0400 Diastolic blood pressure 72 mm[Hg] Gabrielle Alvarado MD Work Phone: [facility] 03-18-2025 10:15-0400 Heart rate 75 /min Gabrielle Alvarado MD Work Phone: [facility] 03-18-2025 10:15-0400 SaO2% (BldA) [Mass fraction] 93 % Gabrielle Alvarado MD Work Phone: [facility] 03-18-2025 10:15-0400 Systolic blood pressure 134 mm[Hg] Gabrielle Alvarado MD Work Phone: [facility] 02-13-2025 08:48-0400 Body height 185.4 cm Esther Dechristophe r [employer]KEMAN-ELEVATOR WORKER Work Phone: [facility] 02-13-2025 08:48-0400 Body mass index (BMI) [Ratio] 26.91 kg/m2 Esther Dechristopher [employer]KEMAN-ELEVATOR WORKER Work Phone: [facility] 02-13-2025 08:48-0400 Body weight 92.53 kg Esther Dechristophe r COKEMAN[employer]ELEVATOR WORKER Work Phone: [facility] 02-13-2025 08:48-0400 Diastolic blood pressure 70 mm[Hg] Esther Dechristopher [employer]KEMAN-ELEVATOR WORKER Work Phone: [facility] 02-13-2025 08:48-0400 Heart rate 67 /min Esther vazquez [employer]KEMAN-ELEVATOR WORKER Work Phone: [facility] 02-13-2025 08:48-0400 Systolic blood pressure 124 mm[Hg] Eshter Matos COKEMAN-ELEVATOR WORKER Work Phone: [facility] 02-12-2025 09:55-0400 Body height 188 cm Mariela Rashid MD Work Phone: [facility] 02-12-2025 09:55-0400 Body mass index (BMI) [Ratio] 26.06 kg/m2 Mariela Rashid MD Work Phone: [facility] 02-12-2025 09:55-0400 Body temperature 97.11 [degF] Mariela Rashid MD Work Phone: [facility] 02-12-2025 09:55-0400 Body weight 92.08 kg Mariela Rashid MD Work Phone: [facility] 02-12-2025 09:55-0400 Diastolic blood pressure 82 mm[Hg] Mariela Rashid MD Work Phone: [facility] 02-12-2025 09:55-0400 Heart rate 73 /min Mariela Rashid MD Work Phone: [facility] 02-12-2025 09:55-0400 SaO2% (BldA) [Mass fraction] 98 % Mariela Rashid MD Work Phone: [facility] 02-12-2025 09:55-0400 Systolic blood pressure 132 mm[Hg] Mariela Rashid MD Work Phone: [facility] 01-03-2025 12:56-0400 Body mass index (BMI) [Ratio] 25.94 kg/m2 Cristiane Chao DISPENSING OPTICIAN Work Phone: [facility] 01-03-2025 12:56-0400 Body weight 91.63 kg Cristiane Chao DISPENSING OPTICIAN Work Phone: [facility] 01-03-2025 12:56-0400 Diastolic blood pressure 68 mm[Hg] Cristiane Chao DISPENSING OPTICIAN Work Phone: [facility] 01-03-2025 12:56-0400 Heart rate 76 /min Cristiane Chao DISPENSING OPTICIAN Work Phone: [facility] 01-03-2025 12:56-0400 SaO2% (BldA) [Mass fraction] 97 % Cristiane Chao DISPENSING OPTICIAN Work Phone: [facility] 01-03-2025 12:56-0400 Systolic blood pressure 122 mm[Hg] Cristiane Chao DISPENSING OPTICIAN Work Phone: [facility] 12-06-2024 09:55-0400 Body height 185.4 cm Janel Chao COKEMAN-ELEVATOR WORKER Work Phone: [facility] 12-06-2024 09:55-0400 Body mass index (BMI) [Ratio] 26.15 kg/m2 Janel Chao COKEMAN-ELEVATOR WORKER Work Phone: [facility] 12-06-2024 09:55-0400 Body weight 89.9 kg Janel Chao COKEMAN-ELEVATOR WORKER Work Phone: [facility] 12-06-2024 09:55-0400 Diastolic blood pressure 78 mm[Hg] Janel Chao COKEMAN-ELEVATOR WORKER Work Phone: [facility] 12-06-2024 09:55-0400 Heart rate 74 /min Janel Chao COKEMAN-ELEVATOR WORKER Work Phone: [facility] 12-06-2024 09:55-0400 Systolic blood pressure 149 mm[Hg] Janel Chao COKEMAN-ELEVATOR WORKER Work Phone: [facility] 11-30-2024 10:17-0400 Body height 188 cm Mariela Rashid MD Work Phone: [facility] 11-30-2024 10:17-0400 Body mass index (BMI) [Ratio] 23.88 kg/m2 Mariela Rashid MD Work Phone: [facility] 11-30-2024 10:17-0400 Body weight 84.37 kg Mariela Rashid MD Work Phone: [facility] 11-30-2024 10:17-0400 Diastolic blood pressure 62 mm[Hg] Mariela Rashid MD Work Phone: [facility] 11-30-2024 10:17-0400 Heart rate 72 /min Mariela Rashid MD Work Phone: [facility] 11-30-2024 10:17-0400 Respiratory rate 18 /min Mariela Rashid MD Work Phone: [facility] 11-30-2024 10:17-0400 SaO2% (BldA) [Mass fraction] 98 % Mariela Rashid MD Work Phone: [facility] 11-30-2024 10:17-0400 Systolic blood pressure 118 mm[Hg] Mariela Rashid MD Work Phone: [facility] 11-07-2024 09:29-0400 Body height 185.4 cm Emiliano Alaniz MD Work Phone: [facility] [email or web address] [facility] 11-07-2024 09:29-0400 Body mass index (BMI) [Ratio] 25.38 kg/m2 Emiliano Alaniz MD Work Phone: [facility] 11-07-2024 09:29-0400 Body weight 87.27 kg Emiliano Alaniz MD Work Phone: [facility] [email or web address] [facility] 11-07-2024 09:29-0400 Diastolic blood pressure 64 mm[Hg] Emiliano Alaniz MD Work Phone: [facility] 11-07-2024 09:29-0400 Heart rate 111 /min Emiliano Alaniz MD Work Phone: [facility] [email or web address] [facility] 11-07-2024 09:29-0400 SaO2% (BldA) [Mass fraction] 99 % Emiliano Alaniz MD Work Phone: [facility] 11-07-2024 09:29-0400 Systolic blood pressure 90 mm[Hg] Emiliano Alaniz MD Work Phone: [facility] 10-19-2024 09:11-0400 Body height 185.4 cm Odell Benjie DO Work Phone: [facility] 10-19-2024 09:11-0400 Body mass index (BMI) [Ratio] 26.78 kg/m2 Odell Benjie DO Work Phone: [facility] 10-19-2024 09:11-0400 Body weight 92.08 kg Odell Benjie DO Work Phone: [facility] 10-19-2024 09:11-0400 Diastolic blood pressure 74 mm[Hg] Odell Benjie DO Work Phone: [facility] 10-19-2024 09:11-0400 Heart rate 92 /min Odell Benjie DO Work Phone: [facility] 10-19-2024 09:11-0400 Systolic blood pressure 140 mm[Hg] Odell Benjie DO Work Phone: [facility] 10-01-2024 09:10-0500 Body mass index (BMI) [Ratio] 25.99 kg/m2 Christopher Caty DO Work Phone: [facility] 10-01-2024 09:10-0500 Body weight 91.81 kg Christopher Caty DO Work Phone: [facility] 10-01-2024 09:10-0500 Diastolic blood pressure 72 mm[Hg] Christopher Caty DO Work Phone: [facility] 10-01-2024 09:10-0500 Heart rate 67 /min Christopher Caty DO Work Phone: [facility] 10-01-2024 09:10-0500 SaO2% (BldA) [Mass fraction] 96 % Christopher Caty DO Work Phone: [facility] 10-01-2024 09:10-0500 Systolic blood pressure 118 mm[Hg] Christopher Caty DO Work Phone: [facility] 09-18-2024 11:52-0500 Body mass index (BMI) [Ratio] 25.68 kg/m2 Shikha Rowell MD Work Phone: [facility] 09-18-2024 11:52-0500 Body weight 90.72 kg Shikha Rowell MD Work Phone: [facility] 09-18-2024 11:52-0500 Heart rate 62 /min Shikha Rowell MD Work Phone: [facility] 09-18-2024 11:52-0500 Respiratory rate 16 /min Shikha Rowell MD Work Phone: [facility] 09-18-2024 11:52-0500 SaO2% (BldA) [Mass fraction] 96 % Shikha Rowell MD Work Phone: [facility] 09-11-2024 13:33-0500 Blood Pressure Location Medina BUTLER [facility] 09-11-2024 13:33-0500 Diastolic blood pressure 90 mm[Hg] Medina BUTLER [facility] 09-11-2024 13:33-0500 Heart rate 68 /min Medina BUTLER [facility] 09-11-2024 13:33-0500 Respiratory rate 16 /min Medina BUTLER [facility] 09-11-2024 13:33-0500 Systolic blood pressure 150 mm[Hg] Medina BUTLER [facility] 09-10-2024 11:17-0500 Blood Pressure Location Medina BUTLER [facility] 09-10-2024 11:17-0500 Body temperature 98.6 [degF] Medinagirish BUTLER [facility] 09-10-2024 11:17-0500 Diastolic blood pressure 78 mm[Hg] Medina BUTLER [facility] 09-10-2024 11:17-0500 Heart rate 61 /min Medina BUTLER [facility] 09-10-2024 11:17-0500 Respiratory rate 18 /min Medina BUTLER [facility] 09-10-2024 11:17-0500 Systolic blood pressure 139 mm[Hg] Medina BUTLER [facility] 09-06-2024 09:20-0500 Body height 188 cm Shikha Rowell MD Work Phone: [facility] 09-06-2024 09:20-0500 Body mass index (BMI) [Ratio] 25.16 kg/m2 Shikha Rowell MD Work Phone: [facility] 09-06-2024 09:20-0500 Body weight 88.91 kg Shikha Rowell MD Work Phone: [facility] 09-06-2024 09:20-0500 Heart rate 74 /min Shikha Rowell MD Work Phone: [facility] 09-06-2024 09:20-0500 Respiratory rate 16 /min Shikha Rowell MD Work Phone: [facility] 09-06-2024 09:20-0500 SaO2% (BldA) [Mass fraction] 93 % Shikha Rowell MD Work Phone: [facility] 08-17-2024 10:05-0500 Body height 185.4 cm Mariela Rashid MD Work Phone: [facility] 08-17-2024 10:05-0500 Body mass index (BMI) [Ratio] 25.6 kg/m2 Mariela Rashid MD Work Phone: [facility] 08-17-2024 10:05-0500 Body weight 88 kg Mariela Rashid MD Work Phone: [facility] 08-17-2024 10:05-0500 Diastolic blood pressure 76 mm[Hg] Mariela Rashid MD Work Phone: [facility] 08-17-2024 10:05-0500 Heart rate 81 /min Mariela Rashid MD Work Phone: [facility] 08-17-2024 10:05-0500 Respiratory rate 18 /min Mariela Rashid MD Work Phone: [facility] 08-17-2024 10:05-0500 SaO2% (BldA) [Mass fraction] 97 % Mariela Rashid MD Work Phone: [facility] 08-17-2024 10:05-0500 Systolic blood pressure 128 mm[Hg] Mariela Rashid MD Work Phone: [facility] 11-16-2023 08:42-0400 Body height 185.4 cm Emiliano Alaniz MD Work Phone: [facility] 11-16-2023 08:42-0400 Body mass index (BMI) [Ratio] 26.39 kg/m2 Emiliano Alaniz MD Work Phone: [facility] 11-16-2023 08:42-0400 Body weight 90.72 kg Emiliano Alaniz MD Work Phone: [facility] 11-16-2023 08:42-0400 Diastolic blood pressure 80 mm[Hg] Emiliano Alaniz MD Work Phone: [facility] 11-16-2023 08:42-0400 Heart rate 84 /min Emiliano Alaniz MD Work Phone: [facility] 11-16-2023 08:42-0400 SaO2% (BldA) [Mass fraction] 96 % Emiliano Alaniz MD Work Phone: [facility] 04-10-2024 08:42-0400 Systolic blood pressure 126 mm[Hg] Emiliano Alaniz MD Work Phone: [employer] 10-06-2023 10:47-0500 Body height 185.4 cm [facility] 10-06-2023 10:47-0500 Body mass index (BMI) [Ratio] 25.73 kg/m2 [facility] [facility] 10-06-2023 10:47-0500 Body weight 88.45 kg [facility]23 09:19-0500 Body mass index (BMI) [Ratio] 26.36 kg/m2 Janelelisa Chao COKEMAN-ELEVATOR WORKER Work Phone: [employer] 09-06-2023 09:19-0500 Body weight 90.63 kg Janel Chao COKEMAN-ELEVATOR WORKER Work Phone: [employer] 09-06-2023 09:19-0500 Diastolic blood pressure 80 mm[Hg] Janel Chao COKEMAN-ELEVATOR WORKER Work Phone: [employer] 09-06-2023 09:19-0500 Systolic blood pressure 130 mm[Hg] Janel Chao COKEMAN-ELEVATOR WORKER [facility] En[facility]ters Encounter Date Encounter Type Care Provider Facility Start: 02-28-2026 ambulatory Medina Lunai ty:[facility] Start: 06-14-2025 ambulatory Medina Lunai ty:[facility] [place] Start: 05-21-2025 ambulatory Medina Lunai ty:[id number] Start: 05-20-2025 End: 05-20-2025 Clinisync Result Encounter Generic External Data Provider [facility] External Department Unsolicited Start: 05-20-2025 End: 05-20-2025 Clinisync Result Encounter Generic External Data Provider [facility] External Department Unsolicited Start: 05-10-2025 End: 05-10-2025 Clinical Support Ppc Ep Wound Check [facility] Comment on above: Longstanding persist ent atrial fibrillation (CMS-HCC) (Primary Dx); Rectal bleeding Start: 05-10-2025 End: 05-10-2025 ambulatory MARIELA RASHID [facility] Start: 05-07-2025 End: 05-07-2025 Clinisync Result Encounter Generic External Data Provider [facility] External Department Unsolicited Start: 05-07-2025 End: 05-07-2025 Clinisync Result Encounter Generic External Data Provider [facility] External Department Unsolicited Start: 05-02-2025 End: 05-02-2025 Evaluation and management of inpatient Emiliano Alaniz MD Work Phone: [facility] - [facility]IV[facility] Comment on above: Paroxysmal atrial fi brillation (CMS-HCC) (Primary Dx); Longstanding persistent atrial fibrillation (CMS-HCC); Rectal bleeding Start: 05-01-2025 End: 05-02-2025 Telephone encounter Felicity Johnson RN [facility] Start: 04-26-2025 End: 04-26-2025 Bamboo tapvivaheet Clau Lopez MD [facility] Start: 04-26-2025 End: 04-26-2025 Bamboo tapvivaheet Clau Lopez MD Work Phone: [facility] Start: 04-26-2025 End: 04-26-2025 Postop follow up visit related to original px Clau Lopez MD Work Phone[facility] Comment on above: Encounter for remova l of sutures Start: 04-26-2025 End: 04-26-2025 ambulatory CLAU LOPEZ Not Available Start: 04-25-2025 End: 04-26-2025 Follow-up encounter Fanny Ambrose RN [facility] Comment on above: Basic Metabolic Pane l, Magnesium, CBC auto differential Start: 04-25-2025 End: 04-25-2025 Telephone encounter Lakeisha Tai RN [facility] Start: 04-25-2025 ambulatory EMILIANO ALANIZ [facility] Start: 04-23-2025 End: 04-23-2025 ambulatory MEDINA BUTLER [facility] Start: 04-22-2025 End: 04-22-2025 Bamboo tapvivaheet Zeb Decker DPM Work Phone: [facility] Start: 04-22-2025 End: 04-22-2025 Bamboo flowsheet Zeb Hammond Prieto DPM Work Phone: [facility] Start: 04-22-2025 End: 04-22-2025 Office outpatient new 30 minutes Zeb Hammond Jeronimo DPM Work Phone: [facility] Comment on above: Contusion of left gr eat toe with damage to nail, initial encounter (Primary Dx); Onychomycosis; Onychodystrophy; Pain in both feet Start: 04-22-2025 End: 04-22-2025 ambulatory ZBE S JERONIMO Not Available Start: 04-19-2025 End: 04-19-2025 ambulatory Medina BUTLER Facility:[facility] Start: 04-19-2025 End: 04-19-2025 Patient encounter procedure Medina BUTLER [facility] Start: 04-18-2025 End: 04-18-2025 Patient encounter procedure Clau Lopez MD Work Phone: [facility] Comment on above: Epidermal inclusion cyst (Primary Dx); Actinic keratosis Start: 04-18-2025 End: 04-18-2025 ambulatory CLAU LOPEZ Not Available Start: 04-12-2025 End: 04-12-2025 ambulatory [facility] Start: 04-10-2025 End: 04-10-2025 Bamboo flowsheet Mariela Rashid MD Work Phone: [facility] Start: 04-10-2025 End: 04-10-2025 Bamboo flowsheet Mariela Rashid MD Work Phone: [facility] Start: 04-10-2025 End: 04-10-2025 Office outpatient visit 15 minutes Mariela Rashid MD Work Phone: [facility] Comment on above: Fall, sequela (Prima ry Dx); Chronic kidney disease, stage 3a (CMS-HCC); Contusion of face, sequela; Memory changes; Longstanding persistent atrial fibrillation (HCC) Start: 04-10-2025 End: 04-10-2025 ambulatory MARIELA RASHID Not Available Start: 03-29-2025 End: 03-29-2025 Emergency department patient visit MARIELA RASHID [facility] Start: 03-19-2025 End: 03-19-2025 Telephone encounter Norma Olivo Liliya COKEMAN-ELEVATOR WORKER Work Phone: [facility] Start: 03-18-2025 End: 03-18-2025 Office outpatient visit 25 minutes Gabrielle Alvarado MD Work Phone: [facility] Comment on above: Lower extremity aneu rysm (Primary Dx) Start: 03-18-2025 End: 03-18-2025 ambulatory [facility] Start: 03-12-2025 End: 03-12-2025 Office outpatient new 30 minutes Norma Geovani Gabinoer COKEMAN-ELEVATOR WORKER Work Phone: [facility] Comment on above: Neoplasm of unspecif ied behavior of bone, soft tissue, and skin; Actinic keratosis; Capillary angioma; Lentigines; Melanocytic nevus of trunk; Seborrheic keratosis; EIC (epidermal inclusion cyst) Start: 03-12-2025 End: 03-12-2025 ambulatory NORMA Geovani LILIYA Not Available Start: 03-12-2025 End: 03-12-2025 Bamboo flowsheet Norma Geovani Felter COKEMAN-ELEVATOR WORKER Work Phone[facility] Start: 03-12-2025 End: 03-12-2025 Bamboo flowsheet Norma Geovani Felter COKEMAN-ELEVATOR WORKER Work Phone[facility] Start: 02-27-2025 End: 02-27-2025 Office outpatient visit 25 minutes Shikha Rowell MD Work Phone: [facility] Comment on above: Hyperthyroidism (Angela mariela Dx); Multinodular goiter ; Chronic atrial fibrillation (HCC) Start: 02-27-2025 End: 02-27-2025 ambulatory SHIKHA ROWELL Not Available Start: 02-25-2025 End: 02-25-2025 ambulatory Medina BUTLER Facility:[facility] Start: 02-25-2025 End: 02-25-2025 Patient encounter procedure Medina BUTLER [facility] Start: 02-19-2025 ambulatory SHIKHA ROWELL [facility] Start: 02-18-2025 End: 02-18-2025 Telephone encounter [facility] Comment on above: EP Surgery (PT Educa tion) Start: 02-13-2025 End: 02-13-2025 Telephone encounter Esther Matos APRN-ELEVATOR WORKER Work Phone: [facility] Start: 02-13-2025 End: 02-13-2025 Office outpatient visit 15 minutes Esther Matos COKEMAN-ELEVATOR WORKER Work Phone: [facility] Comment on above: Longstanding persist ent atrial fibrillation (CMS-HCC) (Primary Dx); Paroxysmal atrial fibrillation (CMS-HCC) Start: 02-13-2025 End: 02-13-2025 ambulatory ESTHER MATOS [facility] Start: 02-12-2025 End: 02-12-2025 Bamboo flowsheet Mariela [...] 01-03-2025 End: 01-03-2025 Bamboo flowsheet Cristiane Chao DISPENSING OPTICIAN Work Phone: [facility] Start: 01-03-2025 End: 01-03-2025 Bamboo flowsheet Cristiane Chao DISPENSING OPTICIAN Work Phone: [facility] Start: 01-03-2025 End: 01-03-2025 Office outpatient visit 25 minutes Cristiane Chao DISPENSING OPTICIAN Work Phone: [facility] Comment on above: Mild neurocognitive disorder (Primary Dx); Hyperthyroidism (CMS/HCC) Start: 01-03-2025 End: 01-03-2025 ambulatory CRISTIANE CHAO Not Available Start: 01-01-2025 End: 01-01-2025 Refill Felicity Johnson RN [facility] Comment on above: Med Refill Start: 12-19-2024 End: 12-19-2024 Evaluation and management of inpatient [facility] Start: 12-06-2024 End: 12-06-2024 Office outpatient visit 15 minutes Janel Chao COKEMAN-ELEVATOR WORKER Work Phone: [facility] Comment on above: Rectal bleeding (Angela mariela Dx); Encounter for colonoscopy due to history of colonic polyp Start: 12-06-2024 End: 12-06-2024 ambulatory JANEL CHAO [facility] Start: 12-05-2024 End: 12-05-2024 Patient [...] End: 11-30-2024 Emergency department patient visit MARIELA RASHID [facility] Start: 11-30-2024 End: 11-30-2024 Office outpatient visit [...] Bamboo flowsheet Shikha Rowell MD Work Phone: [facility] Start: 11-21-2024 End: 11-21-2024 Bamboo flowsheet Shikha Rowell MD Work Phone: [facility] Start: 11-21-2024 End: 11-27-2024 Telephone encounter Felicity Johnson RN [facility] Start: 11-21-2024 End: 11-21-2024 ambulatory SHIKHA ROWELL Not Available Start: 11-21-2024 End: 11-21-2024 Office outpatient visit 25 minutes Shikha Rowell MD Work Phone: [facility] Comment on above: Hyperthyroidism (CMS /HCC) (Primary Dx); Multinodular goiter (CMS/HCC); Chronic atrial fibrillation (HCC) (CMS/HCC) Start: 11-16-2024 End: 11-16-2024 ambulatory Medina BUTLER Facility:[facility] Start: 11-13-2024 End: 11-13-2024 ambulatory SHIKHA ROWELL [facility] Start: 11-07-2024 End: 11-07-2024 Office outpatient visit 25 minutes Emiliano Alaniz MD Work Phone: [facility] Comment on above: Longstanding persist ent atrial fibrillation ([facility]-HCC) (Primary Dx) Start: 11-07-2024 End: 11-07-2024 ambulatory EMILIANO ALANIZ [facility] Start: 11-06-2024 End: 11-06-2024 Telephone encounter Bettie Wharton CMA [facility] Start: 11-05-2024 End: 11-05-2024 ambulatory Medina BUTLER Facility:[facility] [place] Start: 11-01-2024 End: 11-01-2024 Clinisync Result Encounter Generic External Data Provider [facility] External Department Unsolicited Start: 11-01-2024 End: 11-01-2024 Clinisync Result Encounter Generic External Data Provider [facility] External Department Unsolicited Start: 11-01-2024 End: 11-01-2024 ambulatory Medina BUTLER Facility:[id number] Start: 10-22-2024 End: 10-22-2024 ambulatory CORNELIO ISSA Not Available Start: 10-19-2024 End: 10-19-2024 Office outpatient new 45 minutes Odell Rojas DO Work Phone: [facility] Comment on above: Longstanding persist ent atrial fibrillation ([facility]-HCC) (Primary Dx); Pre-op evaluation Start: 10-19-2024 End: 10-19-2024 Preprocedural examination done Odell Rojas DO Work Phone: [facility] Start: 10-19-2024 Encounter for other preprocedural examination ODELL [facility] Start: 10-19-2024 End: 10-19-2024 ambulatory ODELL [facility] Start: 10-18-2024 End: 10-18-2024 Telephone encounter Avril Porter MA [facility] Start: 10-17-2024 End: 10-17-2024 Clinisync Result Encounter Generic External Data Provider [facility] External Department Unsolicited Start: 10-17-2024 End: 10-17-2024 Clinisync Result Encounter Generic External Data Provider [facility] External Department Unsolicited Start: 10-09-2024 End: 10-09-2024 Telephone encounter Shikha Rowell MD Work Phone: [facility] Comment on above: Medication Problem Start: 10-05-2024 End: 10-05-2024 ambulatory SHIKHA ROWELL Not Available Start: 10-01-2024 End: 10-01-2024 Bamboo flowsheet David Byrne DO Work Phone: [facility] Start: 10-01-2024 End: 10-01-2024 Bamboo flowsheet David Byrne DO Work Phone: [facility] Start: 10-01-2024 End: 10-01-2024 Office outpatient new 45 minutes David Byrne DO Work Phone: [facility] Comment on above: Moderate late onset Alzheimer's dementia, unspecified whether behavioral, psychotic, or mood disturbance or anxiety (CMS/HCC) (Primary Dx); Memory changes Start: 10-01-2024 End: 10-01-2024 ambulatory DAVID BYRNE Not Available Start: 09-18-2024 End: 09-18-2024 Bamboo flowsheet Shikha Rowell MD Work Phone: [facility] Start: 09-18-2024 End: 09-18-2024 Bamboo flowsheet Shikha Rowell MD Work Phone: [facility] Start: 09-18-2024 End: 09-18-2024 Office outpatient visit 25 minutes Shikha Rowell MD Work Phone: [facility] Comment on above: Hyperthyroidism (CMS /HCC) (Primary Dx); Multinodular goiter (CMS/HCC); Chronic atrial fibrillation (HCC) (CMS/HCC) Start: 09-18-2024 End: 09-18-2024 ambulatory SHIKHA ROWELL Not Available Start: 09-11-2024 End: 09-11-2024 ambulatory Medina BUTLER Facility:[facility] Start: 09-11-2024 End: 09-11-2024 Patient encounter procedure Medina BUTLER [facility] Start: 09-10-2024 End: 09-10-2024 ambulatory Medina BUTLER Facility: [facility] Start: 09-10-2024 End: 09-10-2024 Patient encounter procedure Medina BUTLER [facility] Start: 09-06-2024 End: 09-06-2024 Bamboo flowsheet Shikha Rowell MD Work Phone: [facility] Start: 09-06-2024 End: 09-06-2024 Bamboo flowsheet Shikha Rowell MD Work Phone: [facility] Start: 09-06-2024 End: 09-06-2024 Office outpatient new 60 minutes Shikha Rowell MD Work Phone: [facility] Comment on above: Multinodular goiter (CMS/HCC) (Primary Dx); Hyperthyroidism (CMS/HCC); Chronic atrial fibrillation (HCC) ([facility]/HCC) Start: 09-06-2024 End: 09-06-2024 ambulatory SHIKHA ROWELL Not Available Start: 08-24-2024 End: 08-24-2024 ambulatory MARIELA RASHID Not Available Start: 08-20-2024 ambulatory Medina BUTLER Facility : [facility] Start: 08-19-2024 End: 08-19-2024 Orders Only Mariela [...] Mariela Rashid MD Work Phone: [facility] Comment on above: Routine general medi [...] encounter status Mariela Rashid MD Work Phone: [facility] Start: 08-17-2024 End: 08-17-2024 ambulatory MARIELA RASHID Not Available Start: 07-31-2024 End: 07-31-2024 Refill Mariela Rashid MD Work Phone: [facility] Comment on above: Mixed hyperlipidemia (CMS/HCC) Start: 04-12-2024 End: 04-12-2024 Refill Mariela Rashid MD Work Phone: [facility] Comment on above: Enlarged prostate Start: 12-12-2023 End: 12-12-2023 Refill Keli Hines RN [facility] Comment on above: Med Refill Start: 11-16-2023 End: 11-16-2023 Office outpatient visit 15 minutes Emiliano Alaniz MD Work Phone: [facility] Comment on above: Paroxysmal atrial fi brillation (CMS-HCC) (Primary Dx) Start: 10-24-2023 Telephone encounter Suly Pringle CMA [facility] Start: 10-20-2023 Telephone encounter Keli Hines RN [facility] Comment on above: Holding eliquis Start: 10-06-2023 End: 10-06-2023 ambulatory [facility] Pat Phone Call Provider 1 [facility] Admit Start: 09-22-2023 Refill Esther Matos COKEMAN-ELEVATOR WORKER Work Phone: [facility] Comment on above: Med Refill Start: 09-06-2023 End: 09-06-2023 Office outpatient new 30 minutes Janel Chao COKEMAN-ELEVATOR WORKER Work Phone: [facility] Comment on above: History of colon stephan yps (Primary Dx); Family history of malignant neoplasm of colon; Hematochezia Start: 08-18-2023 Telephone encounter Janel Chao COKEMAN-ELEVATOR WORKER Work Phone: [facility] Procedures Date Procedure Procedure Detail Performing Clinician Start: 05-20-2025 [facility] APTT Generic External Song a Provider Start: 05-20-2025 SRMCOH PROTHROMBIN TIME INR W/O COUM Generic External Data Provider Start: 05-07-2025 ALL BASIC METABOLIC PANEL Generic Archaeologist al Data Provider Start: 05-02-2025 EP INVASIVE [...] Phone: Start: 03-12-2025 CRYOTHERAPY SKIN LESION Norma Lovell COKEMAN-ELEVATOR WORKER Work Phone: Start: 03-12-2025 End: 03-12-2025 SKIN / NAIL BIOPSY Norma Lovell APR N-ELEVATOR WORKER Work Phone: Start: 02-13-2025 Ecg routine ecg w/least 12 lds w/i&r Esther Matos COKEMAN-ELEVATOR WORKER Work Phone: Start: 12-19-2024 Colonoscopy flx dx w/collj spec when pfrmd Medina BUTLER Start: 11-07-2024 Ecg routine ecg w/least 12 lds w/i&r Emiliano Alaniz MD Work Phone: Start: 11-07-2024 Follow-up visit Follow-up EMILIANO ALANIZ Start: 11-01-2024 [facility] APTT Generic External Song a Provider Start: 11-01-2024 SRMCOH PROTHROMBIN TIME INR W/O COUM Generic External Data Provider Start: 11-01-2024 Transurethral prostatectomy Medina BUCKNER Start: 11-01-2024 Transurethral prostatectomy Medina BUCKNER Start: 10-17-2024 XR CHEST 2V Generic External Song a Provider Start: 10-17-2024 ALL BASIC METABOLIC PANEL Generic Archaeologist al Data Provider Start: 10-17-2024 ECG 12-LEAD Generic External Song a Provider Start: 09-11-2024 Cystoscopy Medina BUTLER Start: 11-16-2023 Ecg routine ecg w/least 12 lds w/i&r Emiliano Alaniz MD Work Phone: Start: 10-14-2023 Colonoscopy Keli Hines RN Start: 08-31-2019 Colonoscopy Janel Chao COKEMAN -ELEVATOR WORKER Work Phone: Appendectomy Medina BUTLER Bilateral cataracts (disorder) Medina BUTLER Cholecystectomy Medina BUCKNER Colonoscopy Medina BUTLER Tonsillectomy Medina BUTLER Plan of Treatment Date Care Activity Detail Author Start: 10-13-2026 Screening for malignant neoplasm of colon Colonoscopy [facility] Start: 05-02-2026 Tobacco Screening Tobacco Screening [facility] Start: 03-29-2026 Tobacco Screening Tobacco Screening [facility] Start: 02-13-2026 Tobacco Screening Tobacco Screening [facility] Start: 02-04-2026 Influenza vaccination Influenza Vaccine (#1) [facility] Comment on above: Postponed from 04/08/2025 (Patient Refus ed) Start: 12-19-2025 Tobacco Screening Tobacco Screening [facility] Start: 12-06-2025 Tobacco Screening Tobacco Screening [facility] Start: 11-07-2025 Tobacco Screening Tobacco Screening [facility] Start: 09-09-2025 End: 09-09-2025 Patient encounter procedure 09/09/2025 2:05 PM EST Office Visit [facility] [address] [place] [address] Norma Lovell APRN-ELEVATOR WORKER [address] [place] [address] [facility] [place] [facility] Start: 08-17-2025 Medicare Annual Wellness (AWV) Medicare Annual Wellness (AWV) [facility] Start: 08-15-2025 End: 08-15-2025 Patient encounter procedure [facility] Start: 07-26-2025 End: 07-26-2025 Patient encounter procedure 07/26/2025 4:15 PM EST Office Visit [facility] [address] [place] [phone] Emiliano Alaniz MD [address] [place] [address] [facility] Start: 07-22-2025 End: 07-22-2025 Patient encounter procedure 07/22/2025 8:30 AM EST Procedure Visit [facility] [address] [place] [address] Zeb Decker, GAEL [address] [place], [place] [id number] [facility] Start: 06-13-2025 End: 05-02-2026 CTA Heart and Coronary arteries W contrast IV CT cardiac morphology Imaging Routine Paroxysmal atrial fibrillation ([facility]-HCC) Expected: 06/13/2025, Expires: 05/02/2026 [facility] Work Phone: Comment on above: Expected: 06/13/2025, Expires: Start: 06-05-2025 End: 06-05-2025 Telemedicine consultation with patient [facility] Start: 05-24-2025 End: 05-24-2025 Patient encounter procedure 05/24/2025 9:30 AM EDT Office Visit [facility] [address] [place] [phone] Clau Lopez MD [address] [place] [address] [facility] Start: 05-10-2025 End: 05-10-2025 Clinical Support 05/10/2025 10:00 AM EDT Clinical Support [facility] [address] [place] [address] [facility] Start: 05-02-2025 End: 05-02-2025 Admission to same day surgery center 05/02/2025 1:30 PM EDT - 05/02/2025 3:30 PM EDT Surgery [facility] [address] [place] [address] Emiliano Alaniz MD [address] [place] [address] Watchman Implant with ICE - BSI, ICE [[id number] (CPT )] [facility] Comment on above: Watchman Implant with ICE - BSI, ICE [[id number] (CPT )] Start: 05-02-2025 Subsequent hospital visit by physician 05/02/2025 1:30 PM EDT Hospital Encounter [facility] [address] [place] [address] Emiliano Alaniz MD [address] [place] [phone] Longstanding persistent atrial fibrillation ([facility]-HCC); Rectal bleeding [facility] Comment on above: Longstanding persistent atrial fibrillat ion ([facility]-HCC); Rectal bleeding Start: 04-26-2025 End: 04-26-2025 Patient encounter procedure [facility] Comment on above: Arrived Start: 04-22-2025 End: 04-22-2025 Patient encounter procedure [facility] Comment on above: Arrived Start: 04-18-2025 End: 04-18-2025 Patient encounter procedure 04/18/2025 11:15 AM EDT Office Visit [facility] [address] [place] [phone] Clau Lopez MD [address] [place] [address] [facility] Start: 04-10-2025 End: 04-10-2025 Patient encounter procedure 04/10/2025 10:20 AM EDT Office Visit [facility] [address] [place] [phone] Mariela Rashid MD [address] [place], [place] [phone] Arrived [facility] Comment on above: Arrived Start: 04-08-2025 COVID-19 Vaccine ( season) COVID-19 Vaccine ( season) [facility] Start: 04-08-2025 Influenza vaccination [facility] Start: 03-12-2025 End: 03-12-2025 Patient encounter procedure [facility] Comment on above: Arrived Start: 02-27-2025 End: 02-27-2026 Hepatic function 2000 panel - Serum or Plasma Hepatic function panel Lab Routine Hyperthyroidism Expected: 02/27/2025 (Approximate), Expires: 02/27/2026 [facility] Comment on above: Expected: 02/27/2025 (Approximate), Expi res: 02/27/2026 Start: 02-27-2025 End: 02-27-2026 Thyrotropin [Units/volume] in Serum or Plasma TSH Lab Routine Hyperthyroidism Expected: 02/27/2025 (Approximate), Expires: 02/27/2026 [facility] Comment on above: Expected: 02/27/2025 (Approximate), Expi res: 02/27/2026 Start: 02-27-2025 End: 02-27-2026 Thyroxine (T4) free [Mass/volume] in Serum or Plasma T4, free Lab Routine Hyperthyroidism Expected: 02/27/2025 (Approximate), Expires: 02/27/2026 [facility] Comment on above: Expected: 02/27/2025 (Approximate), Expi res: 02/27/2026 Start: 02-27-2025 End: 02-27-2026 Triiodothyronine (T3) Free [Mass/volume] in Serum or Plasma T3, free Lab Routine Hyperthyroidism Expected: 02/27/2025 (Approximate), Expires: 02/27/2026 [facility] Work Phone: Comment on above: Expected: 02/27/2025 (Approximate), Expi res: 02/27/2026 Start: 02-27-2025 End: 02-27-2025 Telemedicine consultation with patient 02/27/2025 11:50 AM EDT Telemedicine [facility] [address] [place] [phone] Shikha Rowell MD [address] [place] [address] [facility] Start: 02-13-2025 End: 02-13-2025 Patient encounter procedure 02/13/2025 9:00 AM EDT Office Visit [facility] [address] [place] [phone] Esther Matos, COKEMAN-ELEVATOR WORKER [address] [place] [address] [facility] Start: 02-12-2025 End: 02-12-2025 Patient encounter procedure [facility] Comment on above: Arrived Start: 01-03-2025 End: 01-03-2025 Patient encounter procedure [facility] Comment on above: Arrived Start: 12-20-2024 End: 12-20-2024 Patient encounter procedure 12/20/2024 2:00 PM EDT Appointment [facility] [address] [place] [address] Emiliano Alaniz MD [address] [place] [phone] [facility] Start: 12-19-2024 End: 12-19-2024 Admission to same day surgery center 12/19/2024 8:00 AM EDT - 12/19/2024 8:30 AM EDT Surgery [facility] [address] [place] [phone] Ishaan Zaman MD [address] [place] [phone] COLONOSCOPY DIAGNOSTIC / SCREENING [95594 (CPT )] [facility] Comment on above: COLONOSCOPY DIAGNOSTIC / SCREENING [4537 8 (CPT )] Start: 12-19-2024 End: 12-19-2024 Colonoscopy flx dx w/collj spec when pfrmd COLONOSCOPY DIAGNOSTIC / SCREENING rectal bleeding, history of colon polyps 12/19/2024 8:00 AM EDT [facility] Start: 12-19-2024 Subsequent hospital visit by physician 12/19/2024 8:00 AM EDT Hospital Encounter [facility] [address] [place] [phone] Ishaan Zaman MD [address] [place] [phone] [facility] - Surgery Start: 12-12-2024 End: 12-12-2024 ambulatory 12/12/2024 2:00 PM EDT Support Visit [facility] - Pre Admit [address] [place] [address] [facility] - Pre Admit Start: 12-05-2024 End: 12-05-2024 Patient encounter procedure 12/05/2024 9:00 AM EDT Office Visit [facility] [place] [address] [place] [phone] [facility] [place] Start: 11-30-2024 End: 11-30-2024 Patient encounter procedure 11/30/2024 10:20 AM EDT Office Visit [facility] [address] [place] [address] Mariela Rashid MD [address] [facility], [place] [phone] Arrived [facility] Comment on above: Arrived Start: 11-26-2024 End: 11-26-2024 Patient encounter procedure 11/26/2024 12:30 PM EDT Office Visit [facility] [place] [phone] [facility] [place] Start: 11-21-2024 End: 11-21-2025 Hepatic function 2000 panel - Serum or Plasma Hepatic function panel Lab Routine Hyperthyroidism (CMS/HCC) Expected: 11/21/2024 (Approximate), Expires: 11/21/2025 [facility] Comment on above: Expected: 11/21/2024 (Approximate), Expi res: 11/21/2025 Start: 11-21-2024 End: 11-21-2025 Thyrotropin [Units/volume] in Serum or Plasma TSH Lab Routine Hyperthyroidism (CMS/HCC) Expected: 11/21/2024 (Approximate), Expires: 11/21/2025 [facility] Comment on above: Expected: 11/21/2024 (Approximate), Expi res: 11/21/2025 Start: 11-21-2024 End: 11-21-2025 Thyroxine (T4) free [Mass/volume] in Serum or Plasma T4, free Lab Routine Hyperthyroidism (CMS/HCC) Expected: 11/21/2024 (Approximate), Expires: 11/21/2025 [facility] Comment on above: Expected: 11/21/2024 (Approximate), Expi res: 11/21/2025 Start: 11-21-2024 End: 11-21-2025 Triiodothyronine (T3) Free [Mass/volume] in Serum or Plasma T3, free Lab Routine Hyperthyroidism (CMS/HCC) Expected: 11/21/2024 (Approximate), Expires: 11/21/2025 [facility] Work Phone: Comment on above: Expected: 11/21/2024 (Approximate), Expi res: 11/21/2025 Start: 11-21-2024 End: 11-21-2024 Patient encounter procedure 11/21/2024 11:30 AM EDT Office Visit [facility] [address] [place] [phone] Shikha Rowell MD [address] [place] [address] [facility] Start: 11-21-2024 End: 11-21-2024 Telemedicine consultation with patient 11/21/2024 11:30 AM EDT Telemedicine [facility] [address] [place] [address] Shikha Rowell MD [address] [place] [address] [facility] Start: 11-15-2024 Adult BMI Screening Adult BMI Screening [facility] Start: 11-15-2024 Tobacco Screening Tobacco Screening [facility] Start: 11-07-2024 End: 11-07-2024 Patient encounter procedure 11/07/2024 9:45 AM EDT Office Visit [facility] [address] [facility] [address] [place] [address] Emiliano Alaniz MD [address] [place] [address] [facility] Start: 10-22-2024 End: 10-22-2024 Patient encounter procedure 10/22/2024 2:00 PM EDT Office Visit [facility] [place] [address] [facility] [address] [place] [phone] Cornelio Issa, PhD [address] [place], [place] [phone] [facility] [place] Start: 10-19-2024 End: 10-19-2024 Patient encounter procedure 10/19/2024 9:45 AM EDT Office Visit [facility] [address] [place] [phone] Odell Rojas, DO [address] [place] [address], [address] [place] [address] [facility] Start: 10-13-2024 Adult BMI Screening Adult BMI Screening [facility] Start: 10-13-2024 Screening for malignant neoplasm of colon Colonoscopy [facility] Start: 10-09-2024 End: 10-09-2024 Patient encounter procedure 10/09/2024 10:00 AM EST Office Visit [facility] [place] [address] [facility] [address] [place] [phone] Cornelio Issa, PhD [address] [place], [place] [phone] [facility] [place] Start: 10-05-2024 Adult BMI Screening Adult BMI Screening [facility] Start: 10-05-2024 Tobacco Screening Tobacco Screening [facility] Start: 10-01-2024 End: 10-01-2024 Patient encounter procedure [facility] Comment on above: Memory changes Start: 09-18-2024 End: 09-18-2025 Thyrotropin [Units/volume] in Serum or Plasma TSH Lab Routine Hyperthyroidism (CMS/HCC) Expected: 09/18/2024 (Approximate), Expires: 09/18/2025 [facility] Comment on above: Expected: 09/18/2024 (Approximate), Expi res: 09/18/2025 Start: 09-18-2024 End: 09-18-2025 Thyroxine (T4) free [Mass/volume] in Serum or Plasma T4, free Lab Routine Hyperthyroidism (CMS/HCC) Expected: 09/18/2024 (Approximate), Expires: 09/18/2025 [facility] Comment on above: Expected: 09/18/2024 (Approximate), Expi res: 09/18/2025 Start: 09-18-2024 End: 09-18-2025 Triiodothyronine (T3) Free [Mass/volume] in Serum or Plasma T3, free Lab Routine Hyperthyroidism (CMS/HCC) Expected: 09/18/2024 (Approximate), Expires: 09/18/2025 [facility] Work Phone: Comment on above: Expected: 09/18/2024 (Approximate), Expi res: 09/18/2025 Start: 09-18-2024 End: 09-18-2024 Patient encounter procedure [facility] Comment on above: Arrived Start: 09-06-2024 Adult BMI Screening Adult BMI Screening [facility] Start: 09-06-2024 End: 09-06-2025 Thyroglobulin Antibody Thyroglobulin Antibody Lab Routine Hyperthyroidism (CMS/HCC) Expected: 09/06/2024 (Approximate), Expires: 09/06/2025 [facility] Work Phone: Comment on above: Expected: 09/06/2024 (Approximate), Expi res: 09/06/2025 Start: 09-06-2024 End: 09-06-2025 Thyroid peroxidase antibody Thyroid peroxidase antibody Lab Routine Hyperthyroidism (CMS/HCC) Expected: 09/06/2024 (Approximate), Expires: 09/06/2025 [facility] Comment on above: Expected: 09/06/2024 (Approximate), Expi res: 09/06/2025 Start: 09-06-2024 End: 09-06-2025 Thyrotropin [Units/volume] in Serum or Plasma TSH Lab Routine Hyperthyroidism (CMS/HCC) Expected: 09/06/2024 (Approximate), Expires: 09/06/2025 [facility] Comment on above: Expected: 09/06/2024 (Approximate), Expi res: 09/06/2025 Start: 09-06-2024 End: 09-06-2025 Thyrotropin receptor antibody Thyrotropin receptor antibody Lab Routine Hyperthyroidism (CMS/HCC) Expected: 09/06/2024 (Approximate), Expires: 09/06/2025 [facility] Comment on above: Expected: 09/06/2024 (Approximate), Expi res: 09/06/2025 Start: 09-06-2024 End: 09-06-2025 Thyroxine (T4) free [Mass/volume] in Serum or Plasma T4, free Lab Routine Hyperthyroidism (CMS/HCC) Expected: 09/06/2024 (Approximate), Expires: 09/06/2025 [facility] Comment on above: Expected: 09/06/2024 (Approximate), Expi res: 09/06/2025 Start: 09-06-2024 Tobacco Screening Tobacco Screening [facility] Start: 09-06-2024 End: 09-06-2025 Triiodothyronine (T3) Free [Mass/volume] in Serum or Plasma T3, free Lab Routine Hyperthyroidism (CMS/HCC) Expected: 09/06/2024 (Approximate), Expires: 09/06/2025 [facility] Comment on above: Expected: 09/06/2024 (Approximate), Expi res: 09/06/2025 Start: 09-06-2024 End: 09-06-2024 Patient encounter procedure 09/06/2024 9:20 AM EST Office Visit [facility] [address] [place] [address] Shikha Rowell MD [address] [place] [address] Hyperthyroidism (CMS/HCC) [facility] Comment on above: Hyperthyroidism (CMS/HCC) Start: 08-19-2024 End: 08-19-2025 US Thyroid gland US thyroid Imaging Routine Hyperthyroidism (CMS/HCC) Expected: 08/19/2024, Expires: 08/19/2025 [facility] Work Phone: Comment on above: Expected: 08/19/2024, Expires: Start: 08-17-2024 End: 08-17-2025 CBC W Auto Differential panel - Blood CBC and differential Lab Routine Mixed hyperlipidemia (CMS/HCC) Expected: 08/17/2024 (Approximate), Expires: 08/17/2025 [facility] Comment on above: Expected: 08/17/2024 (Approximate), Expi res: 08/17/2025 Start: 08-17-2024 End: 08-17-2025 Cobalamin (Vitamin B12) [Mass/volume] in Serum or Plasma Vitamin B12 Lab Routine Memory changes Expected: 08/17/2024 (Approximate), Expires: 08/17/2025 [facility] Comment on above: Expected: 08/17/2024 (Approximate), Expi res: 08/17/2025 Start: 08-17-2024 End: 08-17-2025 Comprehensive metabolic 2000 panel - Serum or Plasma Comprehensive metabolic panel Lab Routine Mixed hyperlipidemia (CMS/HCC) Expected: 08/17/2024, Expires: 08/17/2025 [facility] Work Phone: Comment on above: Expected: 08/17/2024, Expires: Start: 08-17-2024 End: 08-17-2025 Lipid 1996 panel - Serum or Plasma Lipid panel Lab Routine Mixed hyperlipidemia (CMS/HCC) Expected: 08/17/2024 (Approximate), Expires: 08/17/2025 [facility] Comment on above: Expected: 08/17/2024 (Approximate), Expi res: 08/17/2025 Start: 08-17-2024 End: 08-17-2025 Prostate specific Ag [Mass/volume] in Serum or Plasma PSA Lab Routine Benign prostatic hyperplasia, unspecified whether lower urinary tract symptoms present Expected: 08/17/2024 (Approximate), Expires: 08/17/2025 [facility] Comment on above: Expected: 08/17/2024 (Approximate), Expi res: 08/17/2025 Start: 08-17-2024 End: 08-17-2025 TSH W/REFLEX TO FT4 TSH W/REFLEX TO FT4 Lab Routine Memory changes Expected: 08/17/2024 (Approximate), Expires: 08/17/2025 [facility] Comment on above: Expected: 08/17/2024 (Approximate), Expi res: 08/17/2025 Start: 08-17-2024 End: 08-17-2024 Patient encounter procedure [facility] Comment on above: Arrived Start: 08-16-2024 Medicare Annual Wellness (AWV) Medicare Annual Wellness (AWV) [facility] Start: 04-08-2024 COVID-19 Vaccine () COVID-19 Vaccine () [facility] Start: 04-08-2024 Influenza vaccination [facility] Start: 11-18-2023 Adult BMI Screening Adult BMI Screening [facility] Start: 11-18-2023 Tobacco Screening Tobacco Screening [facility] Start: 11-16-2023 End: 11-16-2023 Patient encounter procedure 11/16/2023 8:45 AM EDT Office Visit [facility] [address] [place] [address] Emiliano Alaniz MD [address] [place] [address] [facility] Start: 10-14-2023 End: 10-14-2023 Admission to same day surgery center 10/14/2023 10:00 AM EST - 10/14/2023 10:40 AM EST Surgery [facility] [address] [place] [address] Ishaan Zaman MD [address] [place] [address] COLONOSCOPY DIAGNOSTIC / SCREENING [66454 (CPT )] [facility] Comment on above: COLONOSCOPY DIAGNOSTIC / SCREENING [4537 8 (CPT )] Start: 10-14-2023 End: 10-14-2023 Colonoscopy flx dx w/collj spec when pfrmd COLONOSCOPY DIAGNOSTIC / SCREENING history of colon polyps 10/14/2023 10:00 AM EST [facility] Start: 10-14-2023 Subsequent hospital visit by physician 10/14/2023 10:00 AM EST Hospital Encounter [facility] [address] [place] [address] Ishaan Zaman MD [address] [place] [phone] [facility] Start: 10-06-2023 End: 10-06-2023 ambulatory 10/06/2023 3:30 PM EST Support Visit [facility] - Pre Admit [address] [facility] [address] [facility] - Pre Admit Start: 09-06-2023 End: 09-06-2023 Patient encounter procedure 09/06/2023 9:30 AM EST Office Visit [facility] [address] [place] [phone] Janle Chao, COKEMAN-ELEVATOR WORKER [address] [place], [place] [phone] [facility] Start: 04-08-2023 COVID-19 Vaccine ( season) COVID-19 Vaccine ( season) [facility] Start: 08-31-2022 Screening for malignant neoplasm of colon Colonoscopy [facility] Start: 05-11-2020 DTaP,Tdap and Td Vaccines (4 - Td or Tdap) DTaP,Tdap and Td Vaccines (4 - Td or Tdap) [facility] Start: 2010 Abdominal aortic aneurysm screening Abdominal Aortic Aneurysm (AAA) Screen [facility] Start: 2010 Fall Risk [facility]ening [facility] Start: 1963 Adult BMI Follow Up Plan Adult BMI Follow Up Plan [facility] Start: 1957 [facility] Start: 1945 Medicare Annual Wellness Visit Medicare [facility] Well[facility] End: 09-05-2024 Colonoscopy Colonoscopy GI Routine History of colon polyps Family history of malignant neoplasm of colon 1 Occurrences starting 09/06/2023 until 09/05/2024 [employer] Work Phone: Comment on above: 1 Occurrences starting 09/06/2023 until 09/05/2024 End: 12-06-2025 Colonoscopy Colonoscopy GI Routine Rectal bleeding Encounter for colonoscopy due to history of colonic polyp 1 Occurrences starting 12/06/2024 until 12/06/2025 [employer] Phone: Comment on above: 1 Occurrences starting 12/06/2024 until 12/06/2025 Dermatopathology exam Dermatopat hology exam Pathology and Cytology Timed Neoplasm of unspecified behavior of bone, soft tissue, and skin Release Upon Ordering for 1 Occurrences starting 03/12/2025 [employer] Work Phone: Comment on above: Release Upon Ordering for 1 Occurrences starting 03/12/2025 Dermatopathology exam Dermatopat hology exam Pathology and Cytology Timed Epidermal inclusion cyst Release Upon Ordering for 1 Occurrences starting 04/18/2025 [employer] Work Phone: Comment on above: Release Upon Ordering for 1 Occurrences starting 04/18/2025 Oxygen Therapy - Maintain SpO2: 90% or greater; *SLAUGHTERER RELIGIOUS RITUAL Guidelines for O2: Yes; Document: \[email or web address]\epi c\EPIC_Reference\Orders\ Respiratory Care Guidelines\CPG Oxygen 2022.pdf Oxygen Therapy - Maintain SpO2: 90% or greater; *SLAUGHTERER RELIGIOUS RITUAL Guidelines for O2: Yes; Document: \[email or web address]\epi c\EPIC_Reference\Orders\ Respiratory Care Guidelines\CPG Oxygen 2022.pdf Respiratory Care Routine Every 12 hour check until discontinued starting 05/02/2025 [employer] Work Phone: Comment on above: Every 12 hour check until discontinued s tarting 05/02/2025 POCT EKG POCT EKG ECG Blossom ivey Longstanding persistent atrial fibrillation ([facility]-HCC) Ordered: 11/27/2024 [facility] Work Phone: Comment on above: Ordered: 11/27/2024 Immunizations Immunization Date Immunization Notes Care Provider Micah laureano 06-15-2024 influenza virus vacc ine, unspecified formulation Medina BUTLER [facility] 06-15-2024 influenza, high dose seasonal, preservative-free Mariela Rashid MD Work Phone: [facility] 05-05-2023 Influenza, High-dose Seasonal, Quadrivalent, Preservative Free Mariela Rashid MD Work Phone: [facility] 05-05-2023 influenza virus vacc ine, unspecified formulation Emiliano Alaniz MD Work Phone: [facility] 04-04-2023 zoster vaccine recombinant Mariela Rashid MD Work Phone: [facility] 02-01-2023 zoster vaccine recombinant Mariela Rashid MD Work Phone: [facility] Work Phone: 05-17-2022 influenza virus vacc ine, unspecified formulation Medina BUTLER [facility] 05-17-2022 Influenza, High-dose Seasonal, Quadrivalent, Preservative Free Mariela Rashid MD Work Phone: [facility] 08-12-2021 SARS-CoV-2 (COVID-19 ) [id number] vaccine Medina BUTLER [facility] 06-23-2021 influenza virus vacc ine, unspecified formulation Medina BUTLER [facility] 06-23-2021 Influenza, High-dose Seasonal, Quadrivalent, Preservative Free Mariela Rashid MD Work Phone: [facility] 10-09-2020 COVID-19, mRNA, LNP- S, PF, 100mcg/0.5mL Dose Janel Chao [employer] WORKER Work Phone: [facility] Comment on above: Result Comment: 2024: [id number] 09-11-2020 COVID-19, mRNA, LNP- S, PF, 100mcg/0.5mL Dose Janel Chao [employer]KEM[employer]ELEVATOR WORKER Work Phone: [facility] Comment on above: Result Comment: 2024: [id number] 06-17-2020 influenza virus vacc ine, unspecified formulation Medina BUTLER [facility] 06-17-2020 influenza, high dose seasonal, preservative-free Mariela Rashdi MD Work Phone: [facility] 06-17-2020 Influenza, High-dose Seasonal, Quadrivalent, Preservative Free Mariela Rashid MD Work Phone: [facility] 06-14-2019 influenza virus vacc ine, unspecified formulation Medina BUTLER [facility] 06-14-2019 influenza, high dose seasonal, preservative-free Mariela Rashid MD Work Phone: [facility] 06-14-2019 Influenza, High-dose Seasonal, Quadrivalent, Preservative Free Mariela Rashid MD Work Phone: [facility] 05-15-2018 influenza virus vacc ine, unspecified formulation Medina BUTLER [facility] 05-15-2018 influenza, high dose seasonal, preservative-free Mariela Rashid MD Work Phone: [facility] 05-15-2018 influenza, injectabl e, quadrivalent, preservative free Mariela Rashid MD Work Phone: [facility] 04-27-2017 influenza virus vacc ine, unspecified formulation Medina BUTLER [facility] 04-27-2017 influenza, high dose seasonal, preservative-free Mariela Rashid MD Work Phone: [facility] 04-27-2017 Influenza, High-dose Seasonal, Quadrivalent, Preservative Free Mariela Rashid MD Work Phone: [facility] 04-22-2016 influenza virus vacc ine, unspecified formulation Medina CARRIE [facility] 04-22-2016 influenza, high dose seasonal, preservative-free Mariela Rashid MD Work Phone: [facility] 04-21-2015 influenza virus vacc ine, unspecified formulation Medina BUTLER [facility] 04-21-2015 influenza, high dose seasonal, preservative-free Mariela Rashid MD Work Phone: [facility] 04-21-2015 influenza, seasonal, injectable, preservative free Mariela Rashid MD Work Phone: [facility] 04-21-2015 pneumococcal conjuga te vaccine, 13 valent Mariela Rashid MD Work Phone: [facility] 05-03-2014 influenza, high dose seasonal, preservative-free Mariela Rashid MD Work Phone: [facility] 03-04-2014 pneumococcal polysaccharide vaccine, 23 valent Mariela Rashid MD Work Phone: [facility] 04-30-2013 influenza virus vacc ine, unspecified formulation Medina BUTLER [facility] 04-30-2013 influenza, high dose seasonal, preservative-free Mariela Rashid MD Work Phone: [facility] 11-25-2012 varicella virus vaccine Mariela Rashid MD Work Phone: [facility] 09-08-2012 zoster vaccine, live Mariela oswald MD Work Phone: [facility] 05-03-2012 influenza virus vacc ine, unspecified formulation Medina BUTLER [facility] 05-03-2012 influenza, seasonal, injectable, preservative free Mariela Rashid MD Work Phone: [facility] 05-03-2012 seasonal influenza, intradermal, preservative free Mariela Rashid MD Work Phone: [facility] 05-27-2011 influenza virus vacc ine, unspecified formulation Medina BUTLER [facility] 05-27-2011 influenza, seasonal, injectable, preservative free Mariela Rashid MD Work Phone: [facility] 05-11-2010 diphtheria, tetanus toxoids and pertussis vaccine Mariela Rashid MD Work Phone: [facility] 05-11-2010 pneumococcal vaccine , unspecified formulation Mariela Rashid MD Work Phone: [facility] 05-11-2010 tetanus and diphther ia toxoids, adsorbed, preservative free, for adult use (5 Lf of tetanus toxoid and 2 Lf of diphtheria toxoid) Mariela Rashid MD Work Phone: [facility] 05-11-2010 tetanus toxoid, redu brisa diphtheria toxoid, and acellular pertussis vaccine, adsorbed Mariela Rashid MD Work Phone: [facility] 05-04-2010 influenza virus vacc ine, whole virus Mariela Rashid MD Work Phone: [facility] 05-04-2010 influenza, whole Medina RUIZ [facility] Payers Date Payer Category Payer Private Health Insurance [id number] 2016 [facility] [id number] 2016 [employer] Blue Shie ld Indemnity ANTHEM [id number] 2016 Unknown [id number] 2016 Unknown [id number] 2010 Medicare [id number] 2010 Medicare [id number] 1945 Unknown [id number] [id number]. 2.1285 1945 Unknown [id number] 2.840.1.032500.3.579. 2.1285 1945 Unknown [id number] 2.840.1.070718.3.579. 2.1285 1945 Unknown [id number] 2.840.1.817109.3.579. 2.1285 1945 Unknown [id number] 2.840.1.736685.3.579. 2.1286 1945 Unknown [id number] 2.16.840.1.200886.3.579. 2.1286 1945 Unknown [id number] 2.16.840.1.000274.3.579. 2.1286 1945 Unknown [id number] 2.16.840.1.983333.3.579. 2.128 1945 Unknown [id number] 2.16.840.1.502461.3.579. 2.128 1945 Unknown [id number] 2.16.840.1.374603.3.579. 2.128 1945 Unknown [id number] 2.16.840.1.732974.3.579. 2.128 1945 Unknown [id number] 2.16.840.1.346001.3.579. 2.128 1945 Unknown [id number] 2.16.840.1.204504.3.579. 2.128 1945 Unknown [id number] 2.16.840.1.000691.3.579. 2.1258 1945 Unknown [id number] 2.16.840.1.143341.3.579. 2.9 1945 Unknown [id number] 2.16.840.1.257254.3.579. 2.1259 1945 Unknown [id number] 2.16.840.1.664075.3.579. 2.1259 1945 Unknown [id number] 2.16.840.1.482287.3.579. 2.1259 1945 Unknown [id number] 2.16.840.1.324182.3.579. 2.1259 1945 Unknown [id number] 2.16.840.1.550997.3.579. 2.1259 1945 Unknown [id number] 2.16.840.1.697638.3.579. 2.125 1945 Unknown [id number] 2.16.840.1.866219.3.579. 2.1258 1945 Unknown [id number] 2.16.840.1.702028.3.579. 2.125 1945 Unknown [id number] 2.16.840.1.668565.3.579. 2.125 1945 Unknown [id number] 2..840.1.400524.3.579. 2.1258 1945 Unknown [id number] 2..840.1.131590.3.579. 2.1258 1945 Unknown [id number] 2.840.1.496938.3.579. 2.1258 1945 Unknown [id number] 2.840.1.979981.3.579. 2.125 1945 Unknown [id number] 2..840.1.141667.3.579. 2.1258 1945 Unknown [id number] 2.840.1.730815.3.579. 2.1258 1945 Unknown [id number] 2.840.1.855298.3.579. 2.125 1945 Unknown [id number] 2..840.1.239186.3.579. 2.72 1945 Unknown [id number] 2.16.840.1.291007.3.579. 2.72 1945 Unknown [id number] 2.16.840.1.588216.3.579. 2.72 1945 Unknown [id number] 2.840.1.801285.3.579. 2.72 1945 Unknown [id number] 2.16.840.1.094338.3.579. 2.727 1945 Unknown [id number] 2.16.840.1.757967.3.579. 2.727 1945 Unknown [id number] 2.16.840.1.716537.3.579. 2.727 1945 Unknown [id number] 2.16.840.1.475063.3.579. 2.727 1945 Unknown [id number] 2.16.840.1.090060.3.579. 2.727 1945 Unknown [id number] 2.16.840.1.135678.3.579. 2.727 1945 Unknown [id number] 2.16.840.1.855373.3.579. 2.1286 1945 Unknown [id number] 2.16.840.1.591058.3.579. 2.1286 Social History Date Type Detail Facility Start: 01-25-2023 End: 11-30-2024 Tobacco smoking status [facility] Ex-smoker [facility] Start: 08-08-1964 End: 08-08-1998 History of tobacco use Current smoker [facility] Start: 08-08-1964 End: 08-08-1998 History of tobacco use Cigarette Smoker [facility] Start: 01-25-2023 End: 11-30-2024 Tobacco use and exposure Smokeless tobacco non-user [facility] Start: 08-16-2023 End: 04-26-2025 Alcoholic beverage intake Ex-drinker (finding) [facility] Start: 01-25-2023 End: 02-08-2025 History of Social function [facility] Start: 01-25-2023 End: 02-08-2025 Humiliation, Afraid, Rape, and Kick questionnaire [HARK] [...] drinks on 1 occasion? Never [facility] Start: 10-20-2022 How hard is it for you to pay for the very basics like [...] Healthcare Start: 1945 Sex assigned at Male [facility] Start: 07-07-2021 Gender identity Identifies as male gender (finding) [facility] Start: 07-07-2021 Sexual orientation Heterosexual (finding) [facility] Start: 09-10-2024 End: 09-11-2024 Tobacco smoking status Heavy tobacco smoker (finding) [facility] Start: 11-16-2023 End: 05-03-2025 Alcoholic beverage intake Current drinker of alcohol (finding) [facility] Start: 04-25-2018 Alcohol Comment not very often [facility] Start: 03-13-2015 Sex Male (finding) [facility] How often do you nee d to have someone help you when you read instructions, pamphlets, or other written material from your doctor or pharmacy [SILS] Sometimes [facility] Do you belong to any clubs or organizations such as nondenominational groups, unions, fraternal or athletic groups, or school groups? Yes [facility] Do you feel stress - tense, restless, nervous, or anxious, or unable to sleep at night because your mind is troubled all the time - these days [OSQ] Only a little [facility] Sexual Orientation [facility] Start: 05-02-2025 Alcohol Comment not very often - rare [facility] Medical Equipment Procedure Code Equipment Code Equipment Origin al Text Equipment Identifier Dates Lens Iol Ultrase rt 18.5d - [id number] - [id number] Start: 04-25-2018 Lens Iol Ultrase rt 19.0d - [id number] - [id number] Start: 05-09-2018 Watchman Flx Pro Aby Clsr 27mm Us - [id number] , [id number] FDA Start: 05-02-2025 Watchman Flx Pro Prd Device - [id number] Start: 05-02-2025 Goals Date Patient Goal Desired Activity /State Personal health goal Functional Status Date Assessment Result Facility 09-11-2024 Functional Status N/A [facility] 09-10-2024 Functional Status N/A [facility] Clinical Notes 08-18-2023 to 05-10-2025 Nay Sorenson LPN - 05/10/2025 10:00 AM EDTPerioperative Nursing Note - Tawnya Burnett RN - 05/02/2025 6:45 PM EDTDischarkhoa Alaniz MD - 05/02/2025 3:24 PM EDT [...] morph after 06/16. [facility] Miscellaneous Notes Patient ambulated in hallway without issue. Denies chest pain or shortness of breath. Upon return to room, right femoral site checked. Dressing clean, dry, and intact. Discharge instructions reviewed including medications, activity restrictions, and follow ups. Patient stated understanding with no further questions. documented in this encounter [facility] 05-02-2025 Nurse Note Patient ambulated in hallway without issue. Denies chest pain or shortness of breath. Upon return to room, right femoral site checked. Dressing clean, dry, and intact. Discharge instructions reviewed including medications, activity restrictions, and follow ups. Patient stated understanding with no further questions. [facility] 05-02-2025 Hospital Discharge instructions Tawnya Burnett RN - 05/02/2025 6:08 PM EDT Post WATCHMAN Discharge Instructions 1 week from day of discharge, you will need a follow up visit with the Nurse Practitioner. The truck crane operator helper can facilitate arranging these appointments. After a [...] medication changes need to be made. The truck crane operator helper will facilitate arranging these appointments. 6 months post implant you will need to see the implanting physician for a routine follow up and potentially EKG, and lab work. Our echocardiography tech will facilitate with setting up these appointments. Prior to any dental work or surgery notify your dentist or surgeon about your Watchman implant and the medications you are on. Maintain regular follow up visits with your piping drafter Keep all bloodwork appointments. FEMORAL ACCESS: RIGHT GROIN Call your LINE PERSON if you have any of the following [...] ASPIRIN (and/or PLAVIX) WITHOUT SPEAKING WITH YOUR LINE PERSON FIRST! Take your medications as ordered at [...] any questions, please contact our office at [phone]. Sedation Instructions: You were given medicine today [...] further assistance with quitting, you can contact [facility] at [phone] ( ), or consult your physician. *Discharge instructions were reviewed with patient and/or family and they verbalize understanding, including: follow-ups, medications, activity restrictions, and what to do for emergency. Opportunity has been given for patient and/or family to voice any questions or concerns. documented in this encounter [facility] 05-02-2025 Hospital course Narrative Images from the original note were not included. [facility] [address] [place] [address] DISCHARGE SUMMARY Singh Bowman Primary Vendor Management Specialist: Dr. Emiliano Alaniz PCP: Mariela Rashid MD Admission Date: 05/02/2025 Discharge Date: Reason for Admission: Principal Problem: Longstanding persistent atrial fibrillation ([facility]) Active Problems: Rectal bleeding HOSPITAL SUMMARY Briefly, Singh Bowman is a 80 y.o. year old male with PMH dementia, hyperthyroidism, Meniere s disease, HTN, long-standing persistent AF w/ [id number] 3 on apixaban 5 mg BID, s/p [...] normal, atraumatic, no cyanosis or edema PROCEDURES [facility] Course: ECHO: No results found. STRESS: No results found. HOLTER: No results found. CARDIAC CATH: Left atrial appendage closure Result Date: 05/02/2025 Successful implantation of a 27 mm Watchman FLX Pro device for left atrial appendage closure. CAROTID: Vas carotid duplex bilateral Result Date: 08/23/2023 EXAM: [facility] US CAROTID ARTERY DUPLEX BILATERAL DATE:08/23/2023 2:28 PM CLINICAL HISTORY: Facial numbness. COMPARISON: 05/19/2022. TECHNIQUE: Grayscale, color and waveform Doppler analysis of the cervical carotid and vertebral arteries was performed. Optimization of duplex velocity criteria for diagnosis of internal carotid artery (ICA) stenosis: A report of the Intersocietal Accreditation Commission (IAC) Vascular Testing Division Carotid Diagnostic Criteria Committee. Vascular Medicine 2020; https://journals.sagepub.com/doi/ full/10.1177/4607245Y342204911 FINDINGS: No significant plaques are identified at [...] and return visit with me 07/26/25 at [facility] - He will be scheduled for CT cardiac morphology in 6 weeks [facility]YSICIANS Consulting Providers: Consulting Providers Not on file This note was completed using a voice caddymaster system. Every effort was made to ensure accuracy. However, inadvertent computerized caddymaster errors may be present. [facility] Procedure note Images from the original [...] s disease, HTN, long-standing persistent AF w/ [id number] 3 on apixaban 5 mg BID, s/p [...] and return visit with me 07/26/25 at [facility]. Emiliano Alaniz MD/[facility] Cardiac Electrophysiology [facility] [email or web address] [facility] 05-02-2025 Procedure note Images from the original [...] s disease, HTN, long-standing persistent AF w/ [id number] 3 on apixaban 5 mg BID, s/p cryoballoon PVI and RF ablation of the RSPV with pr 08/11/22 who presents for Watchman implantation. He [...] and return visit with me 07/26/25 at [facility]. Emliiano Alaniz MD/[facility] Cardiac Electrophysiology documented in this encounter [facility] [employer] 05-02-2025 History and physical note EP Pre-Procedural H&P HPI: Singh Bowman is a 80 y.o. year old male with PMH dementia, hyperthyroidism, Meniere s disease, HTN, long-standing persistent AF w/ [id number] 3 on apixaban 5 mg BID, s/p cryoballoon PVI and RF ablation of the RSPV with pr 08/11/22 who presents for Watchman implantation. He [...] and return visit with me 07/26/25 at [facility]. He will be scheduled for CT cardiac morphology in 6 weeks. Emiliano Alaniz MD/[facility] Cardiac Electrophysiology [facility] [email or web address] [facility] 05-02-2025 History and physical note EP Pre-Procedural H&P HPI: Singh Bowman is a 80 y.o. year old male with PMH dementia, hyperthyroidism, Meniere s disease, HTN, long-standing persistent AF w/ [id number] 3 on apixaban 5 mg BID, s/p cryoballoon PVI and RF ablation of the RSPV with pr 08/11/22 who presents for Watchman implantation. He [...] and return visit with me 07/26/25 at [facility]. He will be scheduled for CT cardiac morphology in 6 weeks. Emiliano Alaniz MD/[facility] Cardiac Electrophysiology [facility]25 Miscellaneous Notes Surgeon: Dr Butler Type of surgery: rt thulium laser stone surgery Date of surgery: 05/21/25 Surgery location: [facility] Type of anesthesia: general On a [...] note faxed back. documented in this encounter [facility] 05-01-2025 Telephone encounter Note Surgeon: Dr Butler Type of surgery: rt thulium laser stone surgery Date of surgery: 05/21/25 Surgery location: [facility] Type of anesthesia: general On a [...] pt needs pre-op clearance also thx slm [facility] 05-01-2025 Telephone encounter Note Moderate cardiac preoperative risk, non prohibitive, can proceed, Eliquis can be held 2-3 days periprocedurally [facility] 05-01-2025 Telephone encounter Note Clearance note faxed back. [facility] 04-26-2025 History of Present illness Narrative Images from the original note were not included. Suture Removal Patient here for suture removal: No complaints of redness, drainage or swelling at site, compliant with wound care. Location: left judaism Procedure Performed: Excision Date of Procedure: 04/18/2025 Medications: none All pertinent medical history, medications, and allergies were reviewed. General Exam: alert, oriented to person, place, and time, normal affect, well appearing Unaccompanied A focused exam completed based on patient reported problems, see below: Skin Exam 1. ENCOUNTER FOR REMOVAL OF SUTURES Left Taoist Sutures are intact, Skin edges are well-approximated, [...] Visit: as scheduled documented in this encounter [facility] 04-25-2025 Miscellaneous Notes No answer, no voicemail [...] Date: 05/02 at 1:30 PM Location - [facility] Entrance C Arrive @ Noon Fasting - NPO after MN Medications to hold - Hold Eliquis night before/morning of New SGLT2/GLP1 - denies Continue A/C for CDVN - n/a LABS - reminded to go Pre op test - n/a Vendor confirmed - yes Anesthesia added to case - yes PARTH added to case - n/a, ICE Vendor invited See note to JDEBBIE above [x] Pt v/u of all discussed. [...] back number. tkm [facility] Telephone encounter Note No answer, no voicemail for reminder call. Will try again later. tkm [employer] 04-25-2025 Telephone encounter Note BRIDGET: during reminder call for Watchman, mentioned pt [...] op reminder call (pt was driving) Procedure: Sandra Date: 05/02 at 1:30 PM Location - [facility] Entrance C Arrive @ Noon Fasting - NPO after MN Medications to hold - Hold Eliquis night before/morning of New SGLT2/GLP1 - denies Continue A/C for CDVN - n/a LABS - reminded to go Pre op test - n/a Vendor confirmed - yes Anesthesia added to case - yes PARTH added to case - n/a, ICE Vendor invited See note to BRIDGET above [x] Pt v/u of all discussed. Questions answered, denied further and v/u of all. Advised to call back if any further questions. [] Left message with details and reviewed instructions above - Advised pt to review instructions and call with any new meds, questions or to review pre op instructions [] Unable to leave message [facility] 04-25-2025 Telephone encounter Note No changes, proceed to procedure [facility] 04-25-2025 Telephone encounter Note Called pt back with JZL response below and LM on VM. Advised to call back if any questions, provided call back number. tkm T [facility] 04-22-2025 History of Present illness Narrative Images from the original note were not included. Subjective Patient ID: Singh Bowman is a 80 y.o. male who presents for Toe Pain (Singh Bowman 80yo New Patient relates he dropped wheel augustine on his Left great toe. DOI 03/16/2025,Patient [...] Hypertension Memory loss 2023 Meniere disease Numbness 2010 Peptic ulceration 1986 Peripheral angiopathy Peripheral neuropathy 2010 Sensorineural hearing loss of both ears Varicella [...] 1985 CARDIAC ELECTROPHYSIOLOGY STUDY AND ABLATION 08/11/2022 CARDIAC SURGERY 2020 CARDIOVERSION 2021 CATARACT EXTRACTION, BILATERAL 2018 CHOLECYSTECTOMY 2013 COLONOSCOPY 12/19/2024 COLONOSCOPY W/ POLYPECTOMY 2012 CYST REMOVAL Left 04/2025 Taoist area EYE SURGERY 2021 HEMORRHOIDECTOMY 05/2019 SPINE SURGERY 1986 TONSILLECTOMY 1951 Family History Family History Problem Relation Name [...] utilizing a nail nipper and electric bur cutlery grinder without incident. I was able to [...] Zeb Decker DPM documented in this encounter [facility] 04-19-2025 Hospital Discharge instructions Patient Education 04/19/2025 10:11:55 Intravenous Pyelogram, Qhpp-kt-Nwir Intravenous Pyelogram An intravenous pyelogram is a [...] include vitamins, herbs, eye drops, creams, and hasv-ykv-krbhhmz medicines. Any problems you or family members [...] ?Your normal medicines. ?Vitamins, herbs, and supplements. ?Frba-pfa-zerbvgt medicines. You may need to remove glasses, [...] go away in a short time. A metal wire technician will take X-rays. To make the X-rays clearer, the metal wire technician: ?May press on your belly (abdomen). [...] out the dye in your body. Take fgir-ooz-ulmpcdv and prescription medicines only as told by [...] provider. Document Revised: 05/03/2023 Document Reviewed: 05/03/2023 [employer] Patient Education 2023 [employer]. 04/19/2025 09:53:49 Dietary Guidelines to Help Prevent [...] include: ?8 oz (237 mL) of milk, dorsfqk-jhlpkvfkifzd-qdfdk milk, and calcium-fortifiedfruit juice. Calcium-fortified means that [...] ?Spinach (cooked), rhubarb, beets, sweet potatoes, and Beninese chard. ?Peanuts. ?Potato chips, armenian fries, and baked potatoes with skin on. ?Nuts and nut products. ?Chocolate. If you regularly take a diuretic medicine, make sure to eat at least 1 or 2 servings of fruits or vegetables that are high in potassium each day. These include: ?Avocado. ?Banana. ?[place], prune, carrot, or tomato juice. ?Baked potato. [...] magnesium, fish oil, or vitamin B6. Take peie-pdo-jtlzzzq and prescription medicines only as told by [...] Casseroles. Pizza. Lasagna. Frozen meals. Potato chips. English fries. The items listed above may not [...] provider. Document Revised: 11/04/2022 Document Reviewed: 11/04/2022 [employer] Patient Education 2023 [employer]. Follow Up Care 04/01/2025 10:12:36 With:CARRIE PALMA, Medina Vazquez, URL Address: [address] [place], [place] [id number]- When: Unknown [facility] [place] 04-19-2025 Note Patient Education Nephrology Dietary Guidelines [...] ? 8 oz (237 mL) of milk, hgfvcoj-vbdilcripssy-cwpes milk, and calcium-fortifiedfruit juice. Calcium-fortified means that [...] Spinach (cooked), rhubarb, beets, sweet potatoes, and Beninese chard. ? Peanuts. ? Potato chips, armenian fries, and baked potatoes with skin on. ? Nuts and nut products. ? Chocolate. ??? If you regularly take a diuretic medicine, make sure to eat at least 1 or 2 servings of fruits or vegetables that are high in potassium each day. These include: ? Avocado. ? Banana. ? Arivaca, prune, carrot, or tomato juice. ? Baked [...] fish oil, or vitamin B6. ??? Take mong-rzs-nysaysi and prescription medicines only as told by your health (more content not included)... [facility] 04-18-2025 History of Present illness Narrative Images from the original note were not included. Subjective Singh Bowman is a 80 y.o. male who presents for the following: Excision. Location: Left judaism Date of biopsy: 03/12/25 Diagnosis: Epidermal inclusion [...] Skin Exam 1. EPIDERMAL INCLUSION CYST Left Taoist 2.0 x 1.6 cm erythematous, subcutaneous nodule Skin excision - Left Taoist Excision method: elliptical Lesion length (cm): 2 [...] with no complications Skin repair - Left Taoist Complexity: Intermediate Final length (cm): 2.6 Subcutaneous layers (deep stitches): Suture size: 5-0 Suture type: Monocryl (poliglecaprone 25) Stitches: Running subcuticular Fine/surface layer approximation (top stitches): Suture size: 5-0 Suture type comment: Surgipro Stitches: simple running Suture removal (days): 7 Post-procedure details: sterile dressing applied and wound care instructions given Dressing type: pressure dressing and petrolatum mupirocin (Bactroban) 2 % ointment - Left Taoist Apply to affected area 3x daily for [...] days for s/r documented in this encounter [facility] 04-10-2025 History of Present illness Narrative Associated Problem(s): Longstanding persistent atrial fibrillation (HCC) Managed by cardiol mara watchman Images from the original note were not included. Subjective ?Quick Links Last Note in Specialty Snapshot Edit RFV/CC Edit Screenings Current Meds Patient ID: Singh Bowman is a 80 y.o. male who presents for Hospital Follow-up. HPI Flowsheet Row Patient Outreach from 04/03/[address] [facility] with Brooks Jeffery LPN Hospital Information ED, Hospital or Chcf Facility Discharge? ED Patient has been contacted within 2 days of being seen in the ED Yes Diagnosis Right ureteral stone (Primary Dx). Discharge Date 03/29/25 Discharged To: Home Setting Discharge Hospital [facility] Engagement Admission Date 03/29/25 Medications Discharge medications [...] patient have a primary care provider? Yes [Rachid Felix Pod.] Nursing Interventions Educated patient on importance [...] significant pain, which was initially managed with [place]. However, this medication seemed to exacerbate his [...] (Flomax) 0.4 MG 24 hr capsule HYDROcodone-acetaminophen ([place]) 5-325 MG tablet ondansetron ODT (Zofran-ODT) 4 [...] any complications arise. documented in this encounter [facility] 03-18-2025 History of Present illness Narrative Singh Bowman Date of visit: 03/18/2025 Date of : [...] Date Angina pectoris Arthritis 2009 Atrial fibrillation ([facility]) Back pain Benign prostatic hyperplasia Cataracts, bilateral Colon polyps GERD (gastroesophageal reflux disease) Hemorrhoids HL (hearing loss) 2021 Hyperlipidemia Hypertension 2018 Meniere disease 06/2022 Neuromuscular disorder ([facility]) 2010 Peptic ulceration 1979 Peripheral angiopathy in diseases classified elsewhere Peripheral neuropathy Varicella 1953 Visual impairment 1965 No data recorded No data recorded No data recorded Past Surgical History: Procedure Laterality Date Afib Ablation with PARTH-NEL, CRYO, ICE N/A 08/11/2022 Performed by Emiliano Alaniz MD at [facility] (EP) APPENDECTOMY 1967 BACK SURGERY 1986 CARDIAC SURGERY 08/11/2022 Ablation for Afib CHOLECYSTECTOMY 09/26/2013 COLONOSCOPY 08/14/2010 COLONOSCOPY 10/16/2012 COLONOSCOPY 10/20/2015 COLONOSCOPY N/A 08/31/2019 Performed by Jed Worthington MD at [facility] COLONOSCOPY DIAGNOSTIC / SCREENING N/A 12/19/2024 Performed by Ishaan Zaman MD at [facility] COLONOSCOPY DIAGNOSTIC / SCREENING N/A 10/14/2023 Performed by Ishaan Zaman MD at [facility] EYE SURGERY 2018 PHACO KELMAN I IMPLANT INTRAOCULAR LENS Right 05/09/2018 Performed by Aracelis Auguste MD at [facility] PHACO KELMAN I IMPLANT INTRAOCULAR LENS Left 04/25/2018 Performed by Aracelis Auguste MD at [facility] SKIN BIOPSY 2007 SPINE SURGERY 1985 TONSILLECTOMY 1952 Family History [...] Resource Strain: Low Risk (02/08/2025) Received from [facility] Overall Financial Resource Strain (CARDIA) Difficulty of Paying Living Expenses: Not hard at all Food Insecurity: No Food Insecurity (03/18/2025) Hunger Screening Food Insecurity - Worry: Never True Food Insecurity - Inability: Never True Transportation Needs: No Transportation Needs (02/08/2025) Received from [facility] PRAPARE - Transportation Lack of Transportation (Medical): No Lack of Transportation (Non-Medical): No Physical Activity: Inactive (02/08/2025) Received from [facility] Exercise Vital Sign Days of Exercise per Week: 0 days Minutes of Exercise per Session: 0 min Stress: No Stress Concern Present (02/08/2025) Received from [facility] [place] [facility] - Occupational Stress Questionnaire Feeling of Stress : Only a little Social Connections: Socially Integrated (02/08/2025) Received from [facility] Social Connection and Isolation Panel [NHANES] Frequency of Communication with Friends and Family: Once a week Frequency of Social Gatherings with Friends and Family: Twice a week Attends Druze Services: More than 4 times per year Active Member of Clubs or Organizations: Yes Attends Club or Organization Meetings: More than 4 times per year Marital Status: Interpersonal Safety: Not At Risk (02/08/2025) Received from [facility] Humiliation, Afraid, Rape, and Kick questionnaire Fear of Current or Ex-Partner: No Emotionally Abused: No Physically Abused: No Sexually Abused: No Housing Instability: Low Risk (02/08/2025) Received from [facility] Housing Stability Vital Sign Unable to Pay [...] Rashid MD Referring Physician: Mariela Rashid MD [address] [place] [address] documented in this encounter [employer] 03-12-2025 History of Present illness Narrative Skin [...] SKIN (3) Left Upper Arm - Anterior [place] papule Lesion biopsy Type of biopsy: tangential [...] limited to risks of scarring, darker or immigration law specialist pigmentary changes, recurrence, incomplete removal and infection. [...] reasons. 7. EIC (EPIDERMAL INCLUSION CYST) Left Taoist 2.0 x 1.6 cm erythematous, subcutaneous nodule [...] Visit: 6 months documented in this encounter [facility] 02-27-2025 History of Present illness Narrative Singh [...] CATARACT EXTRACTION, BILATERAL 2018 CHOLECYSTECTOMY 2013 COLONOSCOPY 12/19/2024 COLONOSCOPY W/ POLYPECTOMY 2013 HEMORRHOIDECTOMY [...] atrial fibrillation (HCC) To follow with his piping drafter he is on [facility] Follow up in about 3 months (around 05/30/2025). documented in this encounter [facility] 02-25-2025 Hospital Discharge instructions Patient Education 02/25/2025 [...] urethra. Follow these instructions at home: Take igpi-twp-okajara and prescription medicines only as told by [...] provider. Document Revised: 02/10/2022 Document Reviewed: 02/10/2022 [employer] Patient Education 2023 [employer]. Follow Up Care 11/16/2024 11:42:01 With:CARRIE PAMLA, Medina Vazquez, URL Address: [facility] [address] , [place] [address]- When: Unknown [facility] 02-25-2025 Note Patient Education Urology Benign Prostatic [...] Follow these instructions at home: ??? Take mdni-jcy-uijdokk and prescription medicines only as told by [...] do not get (more content not included)... [facility] 02-18-2025 Miscellaneous Notes Images from the original note were not included. [facility] Physicians Cardiology: Watchman Procedures YOUR PROCEDURE: Watchman YOUR DOCTOR: Dr. Emiliano Alaniz DATE/TIME OF YOUR PROCEDURE: 05/02 @ 1:30 pm - ARRIVE AT 12 pm DATES/TIMES ARE SUBJECT TO CHANGE, PLEASE SEE BELOW LOCATION OF YOUR PROCEDURE: [address] [place] [address] Arrive to Entrance C, check in at [...] on or after 04/25 at any [facility] Lab, no paper orders are required, [...] this appointment with a physician. Please call [phone] and ask for scheduling If you need to reschedule your appointment please call [phone] and ask for scheduling IMPORTANT INFORMATION PLEASE BE ADVISED! Dates and times of procedures are subject to change, at times due to emergencies with the hospital or physician. You will be notified as soon as possible if/when these changes may occur by the nurse at the office The automated [employer] messages about your procedure can be incorrect. Please do NOT follow any automated MyChart messages as these can provide incorrect information about your procedure time, arrival time or pre op instructions. Please follow the instructions provided by the nurse in the office at the time of your visit, in the mail or through a separate Article[employer]ley[employer] message labeled pre-op instructions . If you are unsure, please call the Surgery office [phone] WHAT TO BRING WITH YOU TO THE [...] during your stay. You MUST have a driver engineer take you home after your procedure. You MAY NOT use a driving service (Taxi, Uber, Lyft, etc) and must be driven home by a family member or friend. You may have up to TWO visitors for your procedure CALL THE SURGERY OFFICE AT [phone] IMMEDIATELY IF: You have any illness, infection [...] AFTER YOUR PROCEDURE: You MUST have a driver engineer to drive you home after your procedure, even if you stay overnight You will have an incision(s), follow the instructions provided by the hospital at your discharge on how to properly care for your incision and when to remove your dressing. If you are unsure or were not instructed, ask the post op staff at the hospital or call the [facility] Cardiology office at [phone], option 7, Nurses Inspect your incisions every day. Call immediately if you have any swelling, redness, bumps, drainage, your skin around your incision feels warm/hot or if you have a fever. Call your doctor if you have any signs of illness (fever 100 degrees or higher, chills, shivering, nausea, vomiting, discharge from your incision. If you have any symptoms of immediate concern, call 541, go the nearest emergency room or call [...] call the office at any time at [phone]. 45 DAY POST OP PARTH/CT: You will [...] up appointments have NOT been scheduled, call [phone] and select the option for EP scheduling documented in this encounter [facility] 02-18-2025 Telephone encounter Note Images from the original note were not included. [facility] Physicians Cardiology: Watchman Procedures YOUR PROCEDURE: Watchman YOUR DOCTOR: Dr. Emiliano Alaniz DATE/TIME OF YOUR PROCEDURE: 05/02 @ 1:30 pm - ARRIVE AT 12 pm DATES/TIMES ARE SUBJECT TO CHANGE, PLEASE SEE BELOW LOCATION OF YOUR PROCEDURE: [address] [place] [address] Arrive to Entrance C, check in at [...] labs on or after 04/25 at any [facility], no paper orders are required, your [...] this appointment with a physician. Please call [phone] and ask for scheduling If you need to reschedule your appointment please call [phone] and ask for scheduling IMPORTANT INFORMATION PLEASE BE ADVISED! Dates and times of procedures are subject to change, at times due to emergencies with the hospital or physician. You will be notified as soon as possible if/when these changes may occur by the nurse at the office The automated [employer] messages about your procedure can be incorrect. Please do NOT follow any automated ArticleAlleyhart messages as these can provide incorrect information about your procedure time, arrival time or pre op instructions. Please follow the instructions provided by the nurse in the office at the time of your visit, in the mail or through a separate ArticleAlleyhart message labeled pre-op instructions . If you are unsure, please call the EP Surgery office [phone] WHAT TO BRING WITH YOU TO THE [...] during your stay. You MUST have a driver engineer take you home after your procedure. You MAY NOT use a driving service (Taxi, Uber, Lyft, etc) and must be driven home by a family member or friend. You may have up to TWO visitors for your procedure CALL THE EP SURGERY OFFICE AT [phone] IMMEDIATELY IF: You have any illness, infection [...] AFTER YOUR PROCEDURE: You MUST have a driver engineer to drive you home after your procedure, even if you stay overnight You will have an incision(s), follow the instructions provided by the hospital at your discharge on how to properly care for your incision and when to remove your dressing. If you are unsure or were not instructed, ask the post op staff at the hospital or call the [facility] Cardiology office at [phone], option 7, Nurses Inspect your incisions every [...] call the office at any time at [phone]. 45 DAY POST OP PARTH/CT: You will [...] up appointments have NOT been scheduled, call [phone] and select the option for EP scheduling [facility] 02-13-2025 Miscellaneous Notes EP surgery schedulers, please arrange Watchman implantation w/ me next available. MAC sedation, NPO after MN, clears 6h prior, routine preop labs. Hold apixaban 2 doses, no other medications held. No need for PARTH/CT (CT previously done in 2021). Will need SDM from non-implanting physician. Would you like an drop crew laborer or ICE ICE only, thanks! documented in this encounter [facility] 02-13-2025 Telephone encounter Note EP surgery schedulers, please arrange Watchman implantation w/ me next available. MAC sedation, NPO after MN, clears 6h prior, routine preop labs. Hold apixaban 2 doses, no other medications held. No need for PARTH/CT (CT previously done in 2021). Will need SDM from non-implanting physician. [facility] 02-13-2025 Telephone encounter Note Would you like an drop crew laborer or ICE [facility] 02-13-2025 Telephone encounter Note ICE only, thanks! [facility] 02-13-2025 History of Present illness Narrative Singh Bowman Date of visit: 02/13/2025 Date of [...] of 2024. History of Present Illness Singh Bowman is a 80-year-old with history of dementia, [...] Date Angina pectoris Arthritis 2010 Atrial fibrillation ([facility]) Back pain Benign prostatic hyperplasia Cataracts, bilateral Colon polyps GERD (gastroesophageal reflux disease) Hemorrhoids HL (hearing loss) 2021 Hyperlipidemia Hypertension 2018 Meniere disease 06/2022 Neuromuscular disorder ([facility]) 2010 Peptic ulceration 1979 Peripheral angiopathy in diseases classified elsewhere Peripheral neuropathy Varicella 3 Visual impairment 1965 No data recorded No data recorded No data recorded Past Surgical History: Procedure Laterality Date Afib Ablation with PARTH-NEL, CRYO, ICE N/A 08/11/2022 Performed by Emiliano Alaniz MD at [facility] () APPENDECTOMY 1967 BACK SURGERY 1986 CARDIAC SURGERY 08/11/2022 Ablation for Afib CHOLECYSTECTOMY 09/26/2013 COLONOSCOPY 08/14/2010 COLONOSCOPY 10/16/2012 COLONOSCOPY 10/20/2015 COLONOSCOPY N/A 08/31/2019 Performed by Jed Worthington MD at [facility] COLONOSCOPY DIAGNOSTIC / SCREENING N/A 12/19/2024 Performed by Ishaan Zaman MD at [facility] COLONOSCOPY DIAGNOSTIC / SCREENING N/A 10/14/2023 Performed by Ishaan Zaman MD at [facility] EYE SURGERY 2018 PHACO KELMAN I IMPLANT INTRAOCULAR LENS Right 05/09/2018 Performed by Aracelis Auguste MD at [facility] PHACO KELMAN I IMPLANT INTRAOCULAR LENS Left 04/25/2018 Performed by Aracelis Auguste MD at [facility] SKIN BIOPSY 2008 SPINE SURGERY 1985 TONSILLECTOMY [...] Resource Strain: Low Risk (02/08/2025) Received from [facility] Overall Financial Resource Strain (CARDIA) Difficulty of Paying Living Expenses: Not hard at all Food Insecurity: No Food Insecurity (02/08/2025) Received from [facility] Hunger Vital Sign Worried About Running Out of Food in the Last Year: Never true Ran Out of Food in the Last Year: Never true Transportation Needs: No Transportation Needs (02/08/2025) Received from [facility] PRAPARE - Transportation Lack of Transportation (Medical): No Lack of Transportation (Non-Medical): No Physical Activity: Inactive (02/08/2025) Received from [facility] Exercise Vital Sign Days of Exercise per Week: 0 days Minutes of Exercise per Session: 0 min Stress: No Stress Concern Present (02/08/2025) Received from [facility] [place] [facility] Occup[facility] - Occupational Stress Questionnaire Feeling of Stress : Only a little Social Connections: Socially Integrated (02/08/2025) Received from [facility] Social Connection and Isolation Panel [NHANES] Frequency of Communication with Friends and Family: Once a week Frequency of Social Gatherings with Friends and Family: Twice a week Attends Druze Services: More than 4 times per year Active Member of Clubs or Organizations: Yes Attends Club or Organization Meetings: More than 4 times per year Marital Status: Interpersonal Safety: Not At Risk (02/08/2025) Received from [facility] Humiliation, Afraid, Rape, and Kick questionnaire Fear of Current or Ex-Partner: No Emotionally Abused: No Physically Abused: No Sexually Abused: No Housing Instability: Low Risk (02/08/2025) Received from [facility] Housing Stability Vital Sign Unable to Pay [...] cryo PVI and RFA of the are RSPV 2022 Brief recurrence of arrhythmia in the [...] Rashid MD Referring Physician: Mariela Rashid MD [address] [place] [address] PEDRO Mccoy 02/13/25 5999 [facility] History of Present illness Narrative Associated [...] He has a follow-up appointment with his piping drafter tomorrow for his atrial fibrillation, which has [...] size over the years. - Referral to retail account specialist for further evaluation and management. - History of basal cell carcinoma; retail account specialist to assess current lesions. 4. Sleep apnea. [...] except for thyroid. documented in this encounter [facility] 01-03-2025 History of Present illness Narrative Images [...] Father Eulogio Cancer Sister Rebecca Cancer Sister Erbecca Social History Tobacco Use Smoking status: Former [...] wrist extensors , wrist flexor , and stock clerk strength 5/5. LUE strength deltoid , biceps , triceps , wrist extensors , wrist flexor , and stock clerk strength 5/5. RLE strength iliopsoas, quadriceps, tibialis [...] reflex 0. LLE knee reflex 0. Coordination: Nelhwe-yj-ipio testing normal. Rapid alternating movements are normal. Gait: Mildly reduced stride. Steady. Review and summary of old records: Neuropsychological evaluation at [facility] on 12/05/2024: Current neuropsychological evaluation demonstrates variable struggles with memory as well as reduced verbal fluency and visual scanning/complex divided attention. Minimal psychiatric contribution. Overall findings and history are most consistent with mild cognitive impairment (MCI) exacerbated by likely untreated TC. Wero cognitive assessment at [facility] on 10/01/2024: 16/30. MRI of the [...] for serial observation of cognitive function Hyperthyroidism (CMS/HCC) History of hyperthyroidism. Follows with endocrinology. PLAN: - I advised the patient to follow up closely with endocrinology for management of his hyperthyroidism. We discussed that thyroid dysfunction can contribute to cognitive impairment if not optimally managed Greater than 40 minutes on zifk-ih-fooz interaction discussing diagnosis, prognosis and treatment options with greater than 50% on counseling and education. Diagnosis and treatment options discussed in detail. All questions answered. The patient and his verbalize understanding and are agreeable to the plan. Discussion in layman's terms. Follow up in the office within 6 months; sooner if needed for new or worsening symptoms. Cristiane Chao NP [facility] documented in this encounter [facility] 01-01-2025 Miscellaneous Notes Last OV 11/07/24 Last CBC 11/30/24.slm documented in this encounter [facility] 01-01-2025 Telephone encounter Note Last OV 11/07/24 Last CBC 11/30/24.slm [facility] 12-06-2024 History of Present illness Narrative Images [...] Date Angina pectoris Arthritis 2009 Atrial fibrillation ([facility]) Back pain Benign prostatic hyperplasia Cataracts, bilateral Colon polyps GERD (gastroesophageal reflux disease) Hemorrhoids HL (hearing loss) 2021 Hyperlipidemia Hypertension 2018 Meniere disease 06/2022 Neuromuscular disorder ([facility]) 2009 Peptic ulceration 1979 Peripheral angiopathy in diseases classified elsewhere Peripheral neuropathy Varicella 1952 Visual impairment 1965 Past Surgical History: Procedure Laterality Date Afib Ablation with PARTH-NEL, CRYO, ICE N/A 08/11/2022 Performed by Emiliano Alaniz MD at [facility] (EP) APPENDECTOMY 1967 BACK SURGERY 1986 CARDIAC SURGERY 08/11/2022 Ablation for Afib CHOLECYSTECTOMY 09/26/2013 COLONOSCOPY 08/14/2010 COLONOSCOPY 10/16/2012 COLONOSCOPY 10/20/2015 COLONOSCOPY N/A 08/31/2019 Performed by Jed Worthington MD at [facility] COLONOSCOPY DIAGNOSTIC / SCREENING N/A 10/14/2023 Performed by Ishaan Zaman MD at [facility] EYE SURGERY 2018 PHACO KELMAN I IMPLANT INTRAOCULAR LENS Right 05/09/2018 Performed by Aracelis Auguste MD at [facility] PHACO KELMAN I IMPLANT INTRAOCULAR LENS Left 04/25/2018 Performed by Aracelis Auguste MD at [facility] SKIN BIOPSY 2008 SPINE SURGERY 1985 TONSILLECTOMY [...] Resource Strain: Low Risk (11/29/2024) Received from [facility] Overall Financial Resource Strain (CARDIA) Difficulty of Paying Living Expenses: Not hard at all Food Insecurity: No Food Insecurity (12/06/2024) Hunger Screening Food Insecurity - Worry: Never True Food Insecurity - Inability: Never True Transportation Needs: No Transportation Needs (11/29/2024) Received from [facility] PRAPARE - Transportation Lack of Transportation (Medical): No Lack of Transportation (Non-Medical): No Physical Activity: Inactive (11/29/2024) Received from [facility] Exercise Vital Sign Days of Exercise per Week: 0 days Minutes of Exercise per Session: 0 min Stress: No Stress Concern Present (11/29/2024) Received from [facility] [place] of Occupational Health - Occupational Stress Questionnaire Feeling of Stress : Not at all Social Connections: Socially Integrated (11/29/2024) Received from [facility] Social Connection and Isolation Panel [NHANES] Frequency of Communication with Friends and Family: Twice a week Frequency of Social Gatherings with Friends and Family: Twice a week Attends Druze Services: More than 4 times per year Active Member of Clubs or Organizations: Yes Attends Club or Organization Meetings: Never Marital Status: Interpersonal Safety: Not At Risk (11/29/2024) Received from [facility] Humiliation, Afraid, Rape, and Kick questionnaire Fear of Current or Ex-Partner: No Emotionally Abused: No Physically Abused: No Sexually Abused: No Housing Instability: Low Risk (11/29/2024) Received from [facility] Housing Stability Vital Sign Unable to Pay [...] patient/family/caregiver Referring and communicating with other health director career Rectal bleeding [K62.5] PEDRO SULLIVAN [facility] General Surgery Andrew/Novelty This note was created with the assistance of a speech recognition program. While intending to generate a timely document that accurately reflects the content of the visit, no guarantee can be provided that every grammatical or spelling mistake has been or will be identified or corrected. Thank you for your understanding. PEDRO Sullivan 12/06/24 1027 documented in this encounter [facility] 12-05-2024 History of Present illness Narrative Images [...] No history of alcohol/substance abuse. Reformed smoker. [place] language [place]. Completed high school education as well as 2 years of college coursework. 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 Resides with of 25 years. Has 3 [...] design >16th %ile. Motor/Speed of Processing: Right-handed. Winch Operator strength <1st %ile with right-hand, 3rd %ile [...] 7th %ile. Recognition discriminability 7th %ile. Forced-choice 16/16. Immediate recall for prose passages 6th %ile, [...] Please contact me with any questions at [phone]. documented in this encounter [facility] 11-30-2024 History of Present illness Narrative Images [...] fibrillation (A-Fib), managed by Dr. Bedoya, a piping drafter at [facility]. Ablation therapy was performed in 2022, and [...] 2013 COLONOSCOPY W/ POLYPECTOMY 2012 HEMORRHOIDECTOMY 05/2019 FAMILY HISTORY: Family History Problem [...] Addressed This Visit Longstanding persistent atrial fibrillation (CMS/HCC) Overview Stable managed by cardiology Mixed hyperlipidemia ([facility]) Relevant Medications atorvastatin (Lipitor) 20 MG tablet Moderate late onset Alzheimer's dementia ([facility]) Managed by neurology Hyperthyroidism ([facility]) - Primary Managed by endo Other Visit Diagnoses Paroxysmal atrial fibrillation ([facility]) Hematochezia Assessment & Plan 1. Rectal bleeding. [...] Blood work will be drawn at the [facility] to assess blood count stability. 2. Hyperthyroidism. - T3 and T4 levels are normal, but TSH is still low, indicating ongoing hyperthyroidism. - This condition has contributed to weight loss and may have triggered atrial fibrillation. - He will continue to follow up with his facing cutting machine operator for management. - Monitoring of thyroid function tests will continue. 3. Atrial fibrillation. - He has been in normal rhythm for the past 2-3 weeks after a recent episode of atrial fibrillation likely triggered by hyperthyroidism. - Cardioversion was considered but deemed unnecessary as he returned to normal rhythm. - He will continue to follow up with his piping drafter. - Continued monitoring of cardiac rhythm and [...] restart atorvastatin as previously prescribed by his piping drafter. - Review of medication adherence and effectiveness. - Monitoring for any side effects or interactions with other medications. - Coordination with the piping drafter for ongoing lipid management. Follow-up - Follow-up appointment towards the end of next week. documented in this encounter [facility] 11-21-2024 Miscellaneous Notes FYI Pt called states pt had labs T3-T4 was normal. TSH was still low. By pt cardio mobile it shows he is in NSR. states you had ask them to call back with update. Nitax dagmarm Longstanding persistent atrial fibrillation: CHADS2 Vasc 3 [...] past 30 days, point of care labs. Transformer Repairer called patients Taryn to update JZLs response. She will await a p/c from EP surgery schedulers. Called and spoke with Taryn (HIPAA) they are agreeable toe 12/20 for CDVN, pt education to be sent via my chart as discussed. Taryn stated that pt has been in NSR for about [address] [employer] mobile. I told taryn we could schedule [...] Modules accepted: Orders [facility]24 Note Addended by: Mallika SORENSON on: 11/27/2024 11:27 AM Modules accepted: [facility] Telephone encounter Note FYI Pt called [...] Will arrange follow-up visit in 3 months. [place] [facility] [email or web address] [facility] 11-21-2024 Telephone encounter Note EP surgery schedulers: Please schedule cardioversion with me, next available/service week okay. Prefer cardioversion to be done sometime beginning of December. NPO after midnight, clear 6 hours, no medication changes, ensure no missed doses of apixaban over past 30 days, point of care labs. [facility] [email or web address] [facility] 11-21-2024 Telephone encounter Note Transformer Repairer called patients Taryn to update JZLs response. She will await a p/c from EP surgery schedulers. [facility] [email or web address] [facility] 11-21-2024 Telephone encounter Note Called and spoke with Taryn (HIPAA) they are agreeable toe 12/20 for CDVN, pt education to be sent via my chart as discussed. Taryn stated that pt has been in NSR for about 2 weesk per his [employer] mobile. I told taryn we could schedule the cardioversion and have the pt come in for an EKG the day before and if in NSR cancel the CDVN. Taryn is agreeable with this plan [facility] 11-21-2024 Telephone encounter Note Let's just have him send a current Kardia tracing and if NSR, ok to cancel RN visit for EKG and cardioversion. 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 documented in this encounter [facility] 11-16-2024 Note Patient Education Urology Benign Prostatic [...] Follow these instructions at home: ??? Take kmgl-hih-zxrfjod and prescription medicines only as told by [...] do not get (more content not included)... [facility] 11-07-2024 History of Present illness Narrative Singh Barrow Jose Date of visit: 11/07/2024 Date of [...] s disease, HTN, long-standing persistent AF w/ [id number] 3 on apixaban 5 mg BID, s/p cryoballoon PVI and RF ablation of the RSPV with me 08/11/22 who presents to EP clinic at [facility] for follow-up. He was last seen by [...] He has a follow-up appointment with his facing cutting machine operator Dr. Brown on 11/21/24. Past Medical History: [...] 08/11/2022 Performed by Emiliano Alaniz MD at [facility] () APPENDECTOMY 1967 BACK SURGERY 1985 CHOLECYSTECTOMY 09/26/2013 COLONOSCOPY 08/14/2010 COLONOSCOPY 10/16/2012 COLONOSCOPY 10/20/2015 COLONOSCOPY N/A 08/31/2019 Performed by Jed Worthington MD at [facility] COLONOSCOPY DIAGNOSTIC / SCREENING N/A 10/14/2023 Performed by Ishaan Zaman MD at [facility] EYE SURGERY 2017 PHACO KELMAN I IMPLANT INTRAOCULAR LENS Right 05/09/2018 Performed by Aracelis Auguste MD at [facility] PHACO KELMAN I IMPLANT INTRAOCULAR LENS Left 04/25/2018 Performed by Aracelis Auguste MD at [facility] SKIN BIOPSY 2007 TONSILLECTOMY 1952 Family History [...] Resource Strain: Low Risk (01/25/2023) Received from [facility] Overall Financial Resource Strain (CARDIA) Difficulty of Paying Living Expenses: Not hard at all Food Insecurity: No Food Insecurity (11/07/2024) Hunger Screening Food Insecurity - Worry: Never True Food Insecurity - Inability: Never True Transportation Needs: No Transportation Needs (01/25/2023) Received from [facility] PRAPARE - Transportation Lack of Transportation (Medical): No Lack of Transportation (Non-Medical): No Physical Activity: Sufficiently Active (01/25/2023) Received from [facility] Exercise Vital Sign Days of Exercise per Week: 5 days Minutes of Exercise per Session: 60 min Stress: No Stress Concern Present (01/25/2023) Received from [facility] [place] [facility] [place] [facility] - Occupational Stress Questionnaire Feeling of Stress : Not at all Social Connections: Moderately Isolated (01/25/2023) Received from [facility] Social Connection and Isolation Panel [NHANES] Frequency of Communication with Friends and Family: More than three times a week Frequency of Social Gatherings with Friends and Family: More than three times a week Attends Druze Services: Never Active Member of Clubs or Organizations: No Attends Club or Organization Meetings: Never Marital Status: Interpersonal Safety: Not At Risk (01/25/2023) Received from [facility] Humiliation, Afraid, Rape, and Kick questionnaire Fear of Current or Ex-Partner: No Emotionally Abused: No Physically Abused: No Sexually Abused: No Housing Instability: Low Risk (01/25/2023) Received from [facility] Housing Stability Vital Sign Unable to [...] persistent atrial fibrillation (CMS-HCC) - POCT EKG Longstanding [...] Rashid MD Referring Physician: Mariela Rashid MD [address] [place] [address] documented in this encounter [facility] 11-06-2024 Miscellaneous Notes [employer]ora MESSAGE REMINDER SENT TO PT TO REMIND OF PPC APPT. documented in this encounter [facility] 11-06-2024 Telephone encounter Note [employer] MESSAGE REMINDER SENT TO PT TO REMIND OF PPC APPT. [facility] 10-19-2024 History of Present illness Narrative Singh Barrow Jose Date of visit: 10/19/2024 Date of : [...] Patient Atrial Fibrillation Pre-op Exam Cysto/TURP @ [facility] Dr Butler, 11/01/2024 History of Present [...] Past Medical History: Diagnosis Date Angina pectoris ([facility]) Atrial fibrillation (CMS-HCC) Back pain Benign prostatic hyperplasia Cataracts, bilateral Colon polyps GERD (gastroesophageal reflux disease) Hemorrhoids Hyperlipidemia Meniere disease 06/2022 Peripheral angiopathy in diseases classified elsewhere (CMS-HCC) No data recorded No data recorded No data recorded Past Surgical History: Procedure Laterality Date Afib Ablation with PARTH-NEL, CRYO, ICE N/A 08/11/2022 Performed by Emiliano Alaniz MD at [facility] () APPENDECTOMY 1967 BACK SURGERY 1986 CHOLECYSTECTOMY 09/26/2013 COLONOSCOPY 08/14/2010 COLONOSCOPY 10/16/2012 COLONOSCOPY 10/20/2015 COLONOSCOPY N/A 08/31/2019 Performed by Jed Worthington MD at [facility] COLONOSCOPY DIAGNOSTIC / SCREENING N/A 10/14/2023 Performed by Ishaan Zaman MD at [facility] EYE SURGERY 2017 PHACO KELMAN I IMPLANT INTRAOCULAR LENS Right 05/09/2018 Performed by Aracelis Auguste MD at [facility] PHACO KELMAN I IMPLANT INTRAOCULAR LENS Left 04/25/2018 Performed by Aracelis Auguste MD at [facility] SKIN BIOPSY 2008 TONSILLECTOMY 1952 Family History [...] Resource Strain: Low Risk (01/25/2023) Received from [facility] Overall Financial Resource Strain (CARDIA) Difficulty of Paying Living Expenses: Not hard at all Food Insecurity: No Food Insecurity (10/19/2024) Hunger Screening Food Insecurity - Worry: Never True Food Insecurity - Inability: Never True Transportation Needs: No Transportation Needs (01/25/2023) Received from [facility] PRAPARE - Transportation Lack of Transportation (Medical): No Lack of Transportation (Non-Medical): No Physical Activity: Sufficiently Active (01/25/2023) Received from [facility] Exercise Vital Sign Days of Exercise per Week: 5 days Minutes of Exercise per Session: 60 min Stress: No Stress Concern Present (01/25/2023) Received from [facility] [place] [facility] [place] Health - Occupational Stress Questionnaire Feeling of Stress : Not at all Social Connections: Moderately Isolated (01/25/2023) Received from [facility] Social Connection and Isolation Panel [NHANES] Frequency of Communication with Friends and Family: More than three times a week Frequency of Social Gatherings with Friends and Family: More than three times a week Attends Druze Services: Never Active Member of Clubs or Organizations: No Attends Club or Organization Meetings: Never Marital Status: Interpersonal Safety: Not At Risk (01/25/2023) Received from [facility] Humiliation, Afraid, Rape, and Kick questionnaire Fear of Current or Ex-Partner: No Emotionally Abused: No Physically Abused: No Sexually Abused: No Housing Instability: Low Risk (01/25/2023) Received from [facility] Housing Stability Vital Sign Unable to [...] atrial fibrillation (CMS-HCC) 2. Pre-op evaluation Singh we will be at low risk for his [...] He will general cardiology follow-up in the [facility] office in 6 months. TODAYS ORDERS No orders of the defined types were placed in this encounter. FOLLOW UP Return in about 6 months (around 04/21/2025). PCP: Mariela Rashid MD Referring Physician: Mariela Rashid MD [address] [place] [address] documented in this encounter [facility] 10-18-2024 Miscellaneous Notes Called patient to remind them to bring their most current copy of their medication list with them to their appt. Spoke w/spouse verbalizes understanding. documented in this encounter [facility] 10-18-2024 Telephone encounter Note Called patient to remind them to bring their most current copy of their medication list with them to their appt. Spoke w/spouse verbalizes understanding. [facility] 10-09-2024 Miscellaneous Notes Since starting metroprolol, pt [...] control. Please advise. documented in this encounter [facility] 10-09-2024 Telephone encounter Note Since starting metroprolol, [...] until Thyroid is under control. Please advise. [facility] 10-01-2024 History of Present illness Narrative Images [...] , wrist extensors , wrist flexor , stock clerk strength 5/5. LUE Strength deltoid , biceps , triceps , wrist extensors , wrist flexor , stock clerk strength 5/5. RLE Strength illopsoas, quadriceps, tibialis [...] reflex 1+ . Harrison's sign negative. Coordination: Lxckzt-cy-sooy testing and rapid alternating movements are normal Gait: Normal Review and summary of old records: Wero cognitive assessment at [facility] on 10/01/2024: 16/30 MRI of the brain on 09/02/2023: Chronic [...] impression that the patient has memory impairment. [place] cognitive assessment at [facility] on 10/01/2024 was 16/30. MRI of the [...] as the patient has a borderline low Wero cognitive assessment and does have good support through his who is here today. understands and is agreeable. Patient was accompanied by his today who provided additional history and was understanding and agreeable to the plan. Pt has been fully educated on their diagnosis, lab results, treatment options, follow up plan, return instructions, and discussion of mental health issues documented in this encounter [facility] 09-18-2024 History of Present illness Narrative Signh Bowman is a 79 y.o. 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 documented in this encounter [facility] 09-11-2024 Hospital Discharge instructions Patient Education 09/11/2024 [...] Follow these instructions at home: Medicines Take mieh-rnk-hvbhwpu and prescription medicines only as told by [...] to keep your urine pale yellow. Take umre-mec-jzsibbg or prescription medicines. Eat foods that are [...] provider. Document Revised: 04/20/2022 Document Reviewed: 04/20/2022 [employer] Patient Education 2023 [employer]. 09/11/2024 14:07:37 Transurethral Resection of the Prostate [...] including vitamins, herbs, eye drops, creams, and jdox-unk-dcedyyy medicines. Any problems you or family members [...] provider tells you to take them. Taking rofv-nkm-slwcqei medicines, vitamins, herbs, and supplements. Surgery safety [...] provider. Document Revised: 04/20/2022 Document Reviewed: 04/20/2022 [employer] Patient Education 2023 [employer]. Follow Up Care 09/10/2024 11:53:09 With:CARRIE PALMA, Medina Vazquez, URL Address: [facility] [address] [place] [address]- When: Unknown [facility] 09-11-2024 Note Patient Education Urology Transurethral Resection [...] these instructions at home: Medicines ??? Take bfwm-ujk-cpqvvla and prescription medicines only as told by [...] keep your urine pale yellow. ??? Take xgfx-wzf-szumzck or prescription medicines. ??? Eat foods that [...] Revised: 04/20/2022 D (more content not included)... [facility] 09-10-2024 Hospital Discharge instructions Patient Education [...] including vitamins, herbs, eye drops, creams, and loth-skm-rfyjbfw medicines. Any problems you or family members [...] provider tells you to take them. Taking jftw-rrq-vtmmdfd medicines, vitamins, herbs, and supplements. Tests You [...] Follow these instructions at home: Medicines Take ndjp-whq-hssjttv and prescription medicines only as told by [...] provider. Document Revised: 04/07/2022 Document Reviewed: 03/06/2021 [employer] Patient Education 2023 [employer]. 09/10/2024 11:34:26 Benign Prostatic Hyperplasia Benign Prostatic [...] urethra. Follow these instructions at home: Take kcyt-ter-bqmazkc and prescription medicines only as told by [...] provider. Document Revised: 02/10/2022 Document Reviewed: 02/10/2022 [employer] Patient Education 2023 [employer]. Follow Up Care 08/22/2024 16:15:09 With:CARRIE PALMA, Medina Vazquez, URL Address: [facility] [address] [place] [address] [phone] When: Unknown Comments:sched cysto [facility] Note Urology Office/Clini c Note Chief Complaint referral lower urinary tract symptoms HPI Staff 79yr old male pt referred by Mariela Rashid MD for BPH with lower urinary tract symptoms. Has c/o frequent urination both during the day, and at night. *finasteride 5mg qd, Flomax 0.4mg qd IPSS - 26, AANYA - 10 PSA: 08/17/24 - 0.99 Dysuria: [...] [facility] [address], [place] [address]- [phone] Additional Instructions: sched cysto Patient Education Cystoscopy [...] and Father. Immu (more content not included)... [facility] Comment on above: Result Comment: Elec [...] including vitamins, herbs, eye drops, creams, and fszk-vje-ecitjvo medicines. ??? Any problems you or family [...] tells you to take them. ??? Taking kkdp-jad-pmnqjqz medicines, vitamins, herbs, and supplements. Tests You [...] these instructions at home: Medicines ??? Take wvyg-jjm-wfgfpov and prescription medicines only as told by [...] (biopsy) during your (more content not included)... 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 documented in this encounter [facility] 08-17-2024 History of Present illness Narrative Images [...] by direct observation Three Word Registration: Banana, Murdock, Chair Clock Drawing: Normal Clock - 2 [...] has not had a consultation with a postal sorting officer in the past year. He also mentions [...] hips. He does not regularly see an baking assistant but reports no significant vision problems. Supplemental Information He is supposed to call Dr. Bedoya, a piping drafter, on 11/30/2024. SUBJECTIVE: MEDICATIONS: Current Outpatient Medications [...] Overview Added automatically from request for surgery [id number] Meniere's disease of right ear stable Mixed [...] referral to a neurologist, Dr. Byrne in [place], will be made to assess his memory concerns and discuss potential treatment options. 4. Health maintenance. His blood pressure is well-regulated. Blood work will be conducted today. He is advised to continue his current healthy habits. Follow-up The patient will follow up in 6 months, or earlier if any complications arise. PROCEDURE Colonoscopy performed by Dr. Trejo. documented in this encounter [facility] 07-31-2024 Telephone encounter Note Approvals with refills [facility] 07-31-2024 Miscellaneous Notes Approvals with refills 90 day supply documented in this encounter [facility] 07-31-2024 Telephone encounter Note 90 day supply [facility] 04-12-2024 Telephone encounter Note Approvals with refills [facility] 04-12-2024 Miscellaneous Notes Approvals with refills documented in this encounter [facility] 11-16-2023 History of Present illness Narrative Singh Barrow Jose Date of visit: 11/16/2023 Date of : [...] s disease, HTN, long-standing persistent AF w/ [id number] 3 on apixaban 5 mg BID, s/p cryoballoon PVI and RF ablation of the RSPV with me 08/11/22 who presents to EP clinic at [facility] for preoperative evaluation for dental work which he had completed 11/01/23. He was last seen by me 11/17/22 when he remained in NSR off of amiodarone, which was discontinued due to his use of Maxzide for Meniere s disease. Patient presented the appointment by himself today. EKG demonstrates normal sinus rhythm, heart rate 75 beats per minute, MD interval 160 millisecond QRS 90 millisecond QTC 394 millisecond. He has been doing very well since her ablation, no subjective complaints today. Confirmed that he had teeth extracted on 11/01/2023. Past Medical History: Diagnosis Date Angina pectoris ([facility]-H[facility]) Atrial fibrillation ([facility]) Back pain Benign prostatic hyperplasia Cataracts, bilateral Colon polyps GERD (gastroesophageal reflux disease) Hemorrhoids Hyperlipidemia Meniere disease 06/2022 Peripheral angiopathy in diseases classified elsewhere ([facility]-HCC) No data recorded No data recorded No data recorded Past Surgical History: Procedure Laterality Date Afib Ablation with PARTH-NEL, CRYO, ICE N/A 08/11/2022 Performed by Emiliano Alaniz MD at [facility] (EP) APPENDECTOMY 1967 BACK SURGERY 1986 CHOLECYSTECTOMY 09/26/2013 COLONOSCOPY 08/14/2010 COLONOSCOPY 10/16/2012 COLONOSCOPY 10/20/2015 COLONOSCOPY N/A 08/31/2019 Performed by Jed Worthington MD at [facility] COLONOSCOPY DIAGNOSTIC / SCREENING N/A 10/14/2023 Performed by Ishaan Zaman MD at [facility] EYE SURGERY 2018 PHACO KELMAN I IMPLANT INTRAOCULAR LENS Right 05/09/2018 Performed by Aracelis Auguste MD at [facility] PHACO KELMAN I IMPLANT INTRAOCULAR LENS Left 04/25/2018 Performed by Aracelis Auguste MD at [facility] SKIN BIOPSY 2007 TONSILLECTOMY 1952 Family History [...] Resource Strain: Low Risk (01/25/2023) Received from [facility] Overall Financial Resource Strain (CARDIA) Difficulty of Paying Living Expenses: Not hard at all Food Insecurity: No Food Insecurity (11/16/2023) Hunger Screening Food Insecurity - Worry: Never True Food Insecurity - Inability: Never True Transportation Needs: No Transportation Needs (01/25/2023) Received from [facility] PRAPARE - Transportation Lack of Transportation (Medical): No Lack of Transportation (Non-Medical): No Physical Activity: Sufficiently Active (01/25/2023) Received from [facility] Exercise Vital Sign Days of Exercise per Week: 5 days Minutes of Exercise per Session: 60 min Stress: No Stress Concern Present (01/25/2023) Received from [facility] [place] [facility] - Occupational Stress Questionnaire Feeling of Stress : Not at all Social Connections: Moderately Isolated (01/25/2023) Received from [facility], [facility] Social Connection and Isolation Panel [NHANES] Frequency of Communication with Friends and Family: More than three times a week Frequency of Social Gatherings with Friends and Family: More than three times a week Attends Druze Services: Never Active Member of Clubs or Organizations: No Attends Club or Organization Meetings: Never Marital Status: Interpersonal Safety: Not At Risk (01/25/2023) Received from [facility], [facility] Humiliation, Afraid, Rape, and Kick questionnaire Fear of Current or Ex-Partner: No Emotionally Abused: No Physically Abused: No Sexually Abused: No Housing Instability: Low Risk (01/25/2023) Received from [employer] [facility], [facility] Housing Stability Vital Sign Unable to Pay for Housing in the Last Year: No Number of Places Lived in the Last Year: 1 In the last 12 months, was there a time when you did not have a steady place to sleep or slept in a retirement (including now)?: No Review of Systems Review [...] Rashid MD Referring Physician: Mariela Rashid MD [address] [place] [address] documented in this encounter [employer] 10-24-2023 Miscellaneous Notes ----- Message from Ishaan [...] put in chart. [facility] this [facility]23 Telephone encounter Note ----- Message from Ishaan Zaman MD sent at 10/21/2023 1:18 PM EDT ----- Regarding: Pathology Please let patient know polyp removed was benign sessile serrated polyp with low-grade dysplasia, this is precancerous. I recommend repeat colonoscopy in 1 year. Thank you ----- Message ----- From: Interface - Lab Results/Orders In Sent: 10/18/2023 2:19 PM EDT To: Ishaan Zaman MD [facility] [employer] 10-24-2023 Telephone encounter Note Spoke with patient regarding pathology results. Patient verbally understood with no further questions. Recall will be put in chart. [facility]-20[facility]23 Miscellaneous Notes Received fax from [facility] oral surgery- Dr. Grier. Pt having 2 teeth extracted 11/01/23. Would like to hold EliBRAINREPUBLIC x 2 days. Pt last saw Dr. Alaniz. 11/17/22. Next scheduled appt 11/16/23 Transformer Repairer called spoke w/ pt. Verified that only 2 teeth are being pulled. Denies ever having a stroke or any DVT/P.Emboli. Will message Dr. Alaniz for advice Okay to hold apixaban for 2 days prior to procedure. Resume as soon as deemed safe by the proceduralist Note created and faxed Pt. Notified documented in this encounter [facility] [employer] 10-20-2023 Telephone encounter Note Received fax from [facility] oral surgery- Dr. Grier. Pt having 2 teeth extracted 11/01/23. Would like to hold Eliquis x 2 days. Pt last saw Dr. Alaniz. 11/17/22. Next scheduled appt 11/16/23 Transformer Repairer called spoke w/ pt. Verified that only 2 teeth are being pulled. Denies ever having a stroke or any DVT/P.Emboli. Will message Dr. Alaniz for advice [facility] 10-20-2023 Telephone encounter Note Okay to hold apixaban for 2 days prior to procedure. Resume as soon as deemed safe by the proceduralist [facility] Phone: 10-20-2023 Telephone encounter Note Note created and faxed Pt. Notified [facility] 10-06-2023 Nurse Note Preoperative Education Checklist- General Surgery date: 10/14/23 Surgery time: 10a Arrival time: 8a 1. Bring a photo ID and your insurance card with you the day of surgery. You will check in at the main lobby of the [facility]- registration desk is straight ahead as soon as you walk in. Tell them you are here for surgery. 2. If you have a Living Will/Durable Power of Foot Piece Assembler for Health Care that is not on [...] after you have bathed. 5. NO nail cameroonian/acrylic on at least one finger. If you are having a hand, wrist or foot surgery then all nail cameroonian and artificial/acrylic nails must be removed from [...] please call the Preadmission Testing office at [phone], Mon.-Fri. 7 a.m.-3 p.m. Leave a voicemail [...] mg per tablet Take morning of procedure [employer] [facility] 10-06-2023 Miscellaneous Notes Preoperative Education Checklist- General Surgery date: 10/14/23 Surgery time: 10a Arrival time: 8a 1. Bring a photo ID and your insurance card with you the day of surgery. You will check in at the main lobby of the [facility]- registration desk is straight ahead as soon as you walk in. Tell them you are here for surgery. 2. If you have a Living Will/Durable Power of Foot Piece Assembler for Health Care that is not on [...] after you have bathed. 5. NO nail cameroonian/acrylic on at least one finger. If you are having a hand, wrist or foot surgery then all nail cameroonian and artificial/acrylic nails must be removed from [...] please call the [facility] office at [phone], Mon.-Fri. 7 a.m.-3 p.m. Leave a voicemail [...] morning of procedure documented in this encounter [facility] 09-22-2023 Miscellaneous Notes For further refills, pt needs to complete labs as ordered. Letter sent to [facility]. Last ov 11/17/22 Cbc/cmp 06/15/22 documented in this encounter [facility] 09-22-2023 Telephone encounter Note For further refills, pt needs to complete labs as ordered. Letter sent to [facility]. Last ov 11/17/22 Cbc/cmp 06/15/22 [facility] 09-06-2023 History of Present illness Narrative Images [...] 06/2022 Peripheral angiopathy in diseases classified elsewhere ([facility]) Past Surgical History: Procedure Laterality Date Afib Ablation with PARTH-NEL, CRYO, ICE N/A 08/11/2022 Performed by Emiliano Alaniz MD at [facility] (EP) APPENDECTOMY 1967 BACK SURGERY 1986 CHOLECYSTECTOMY 09/26/2013 COLONOSCOPY 08/14/2010 COLONOSCOPY 10/16/2012 COLONOSCOPY 10/20/2015 COLONOSCOPY N/A 08/31/2019 Performed by Jed Worthington MD at [facility] EYE SURGERY 2017 PHACO KELMAN I IMPLANT INTRAOCULAR LENS Right 05/09/2018 Performed by Aracelis Auguste MD at [facility] PHACO KELMAN I IMPLANT INTRAOCULAR LENS Left 04/25/2018 Performed by Aracelis Auguste MD at [facility] SKIN BIOPSY 2008 TONSILLECTOMY 1952 No Known [...] patient/family/caregiver Referring and communicating with other health director career History of colon polyps [Z86.010] JANEL CHAO, COKEMAN-ELEVATOR WORKER [facility] [place] This note was created with the assistance of a speech recognition program. While intending to generate a timely document that accurately reflects the content of the visit, no guarantee can be provided that every grammatical or spelling mistake has been or will be identified or corrected. Thank you for your understanding. PEDRO Sullivan 09/06/23 0940 documented in this encounter [facility] 08-18-2023 Miscellaneous Notes Called Singh regarding the screening colonoscopy referral that our office received from Dr. Rashid, I left a message on his machine to call the office back to schedule an appointment. Singh called the office back and scheduled an appointment in regard to the colonoscopy referral. documented in this encounter [facility] 08-18-2023 Telephone encounter Note Called Singh regarding the screening colonoscopy referral that our office received from Dr. Rashid, I left a message on his machine to call the office back to schedule an appointment. [facility] 08-18-2023 Telephone encounter Note Singh called the office back and scheduled an appointment in regard to the colonoscopy referral. [facility] Evaluation + Plan note Future Appointments Appointment Date:09/11/2024 02:00:00 PM Scheduled Provider:Medina BUTLER MD Location:[facility] Appointment Type:URO Procedure 15 min [facility] Evaluation + Plan note Future Appointments Appointment Date:11/05/2024 09:00:00 AM Scheduled Provider: Location:[facility] Appointment Type:URO Nurse Visit Appointment Date:11/16/2024 10:45:00 AM Scheduled Provider:Medina BUTLER MD Location:[facility] Appointment Type:URO Office Visit [facility] Evaluation + Plan note Future Appointments Appointment Date:02/28/2026 11:00:00 AM Scheduled Provider:Medina BUTLER MD Location:[facility] Appointment Type:URO Office Visit [facility] Evaluation + Plan note Future Appointments Appointment Date:06/14/2025 10:45:00 AM Scheduled Provider:Medina BUTLER MD Location[facility] Appointment Type:URO Office Visit Appointment Date:02/28/2026 11:00:00 AM Scheduled Provider:Medina BUTLER MD Location[facility] Appointment Type:URO Office Visit [facility] Evaluation note Diagnosis Enlarged prostate Hypertrophy of prostate without urinary obstruction and other lower urinary tract symptoms (LUTS) documented in this encounter [facility]* Diagnosis Mixed hyperlipidemia (CMS/HCC) Mixed hyperlipidemia documented in this encounter [facility]* Diagnosis Routine general medical examination [...] (CMS/HCC) Atrial fibrillation documented in this encounter [facility] HealthcareEvaluation note* Diagnosis Hyperthyroidism (CMS/HCC)- Primary Thyrotoxicosis without mention of goiter or other cause, without mention of thyrotoxic crisis or storm Multinodular goiter (CMS/HCC) Nontoxic multinodular goiter Chronic atrial fibrillation (HCC) (CMS/HCC) Atrial fibrillation documented in this encounter [facility] note* Diagnosis History of colon polyps- Primary Family history of malignant neoplasm of colon Hematochezia Blood in stool [facility] Diagnosis Paroxysmal atrial fibrillation (CMS-HCC)- Primary Atrial fibrillation [facility]* Diagnosis Moderate late onset Alzheimer's dementia, unspecified whether behavioral, psychotic, or mood disturbance or anxiety (CMS/HCC)- Primary Memory changes documented in this encounter [facility] note* Diagnosis Longstanding persistent atrial fibrillation (CMS-HCC)- Primary Pre-op evaluation documented [facility]* Diagnosis Longstanding persistent atrial fibrillation (CMS-HCC)- Primary documented [facility]* Diagnosis Hyperthyroidism (CMS/HCC)- Primary Thyrotoxicosis without mention of goiter or other cause, without mention of thyrotoxic crisis or storm Multinodular goiter (CMS/HCC) Nontoxic multinodular goiter Chronic atrial fibrillation (HCC) (CMS/HCC) Atrial fibrillation documented in this encounter [facility]* Diagnosis Longstanding persistent atrial fibrillation (CMS-HCC)- Primary documented [facility]* Diagnosis Hyperthyroidism (CMS/HCC)- Primary Thyrotoxicosis without mention of goiter or other cause, without mention of thyrotoxic crisis or storm Longstanding persistent atrial fibrillation (CMS/HCC) Mixed hyperlipidemia (CMS/HCC) Mixed hyperlipidemia Moderate late onset Alzheimer's dementia without behavioral disturbance, psychotic disturbance, mood disturbance, or anxiety (CMS/HCC) Paroxysmal atrial fibrillation (CMS/HCC) Atrial fibrillation Hematochezia Blood in stool documented in this encounter [facility] note* Diagnosis Mild neurocognitive disorder- Primary Concentration deficit 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, unspecified Family history of dementia Family history of other neurological diseases documented in this encounter [facility] note* Diagnosis Rectal bleeding- Primary Hemorrhage of rectum and anus Encounter for colonoscopy due to history of colonic polyp documented [facility]* Diagnosis Mild neurocognitive disorder- Primary Hyperthyroidism (CMS/HCC) Thyrotoxicosis without mention of goiter or other cause, without mention of thyrotoxic crisis or storm documented in this encounter [facility]* Diagnosis Hyperthyroidism- Primary Thyrotoxicosis without [...] hyperlipidemia Mixed hyperlipidemia documented in this encounter [facility]* Diagnosis Longstanding persistent atrial fibrillation (CMS-HCC)- Primary Paroxysmal atrial fibrillation (CMS-HCC) Atrial fibrillation [facility] Diagnosis Hyperthyroidism- Primary Thyrotoxicosis [...] (HCC) Atrial fibrillation documented in this encounter [facility]* Diagnosis Hyperthyroidism- Primary Thyrotoxicosis without [...] cyst) Sebaceous cyst documented in this encounter [facility]* Diagnosis Longstanding persistent atrial fibrillation (CMS-HCC) Rectal bleeding Hemorrhage of rectum and anus 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 Longstanding persistent atrial fibrillation (CMS-HCC) Rectal bleeding Hemorrhage of rectum and anus documented [facility]* Diagnosis Hyperthyroidism- Primary Thyrotoxicosis [...] atrial fibrillation (HCC) documented in this encounter [facility]* Diagnosis Hyperthyroidism- Primary Thyrotoxicosis without [...] cyst Actinic keratosis documented in this encounter [facility]* Diagnosis Hyperthyroidism- Primary Thyrotoxicosis without [...] in both feet documented in this encounter [facility]* Diagnosis Hyperthyroidism- Primary Thyrotoxicosis without [...] removal of sutures documented in this encounter [facility]* [...] available for this section [facility] InstructionsNot on filedocumented in this encounter [facility] [...] available for this section [facility] reason for visit Narrative* Consultation (Routine) - Closed Specialty Diagnoses / Procedures Referred By Maggie christie Referred To Contact Neurology Diagnoses Memory changes Procedures MD OFFICE/OUTPATIENT NEW HIGH MDM 60 MINUTES Mariela Rashid MD [address] [place] [address] Phone: tel: fax: David Byrne DO [address] [place] [address] Phone: tel: fax: Referral ID Status Reason Start Date Expiration Date V isits Requested Visits Authorized [id number] Closed Consult and Treat 08/17/2024 02/13/2025 1 1 [facility] for visit Narrative* Auth/Cert Specialty Diagnoses / Procedures Referred By Maggie christie Referred To Contact Diagnoses Longstanding persistent atrial fibrillation (CMS-HCC) Rectal bleeding i48.1 k62.5 Procedures MD PERQ CLSR TCAT L ATR APNDGE W/ENDOCARDIAL IMPLNT Watchman Implant with ICE - BSI, ICE EP Invasive Emiliano Alaniz MD [address] [place] [address] Phone: tel: fax: Referral ID Status Reason Start Date Expiration Date Visits Re quested Visits Authorized [id number] 1 1 [facility] Summary Purpose Family History No Family History Records Found Advance Directives Date Activated Date Inactivated Comments 05/02/2025 1:46 PM Date Activated Date Inactivated Comments 05/02/2025 1:46 PM Date Activated Date Inactivated Comments 05/02/2025 1:46 PM 05/02/2025 9:11 PM Additional Source Comments Care Teams (unrecognized sec tion and content) Clinical Assoc Relationship Specialty Start Date End Date Michell France NP [address], [place] [id number] PCP - ACO Reach 12/30/22 Mariela Rashid MD [address] [place] [address] PCP - General Family Medicine 01/25/23 Clinical Assoc Relationship Specialty Start Date End Date Michell France NP PCP - ACO Reach 12/30/22 Mariela Rashid MD [address] [facility] [place] [address] PCP - General Family Medicine 01/25/23 Clinical Assoc Relationship Specialty Start Date End Date Michell France NP PCP - ACO Reach 12/30/22 Mariela Rashid MD [address] [facility] [place] [place] [address] PCP - General Family Medicine 01/25/23 Clinical Assoc Relationship Specialty Start Date End Date Michell France NP PCP - ACO Reach 12/30/22 Mariela Rashid MD [address] [facility] [place] [address] PCP - General Family Medicine 01/25/23 Clinical Assoc Relationship Specialty Start Date End Date Michell France NP PCP - ACO Reach 12/30/22 Mariela Rashid MD [address] [place] [address] [place] [address] PCP - General Family Medicine 01/25/23 Clinical Assoc Relationship Specialty Start Date End Date Michell France NP PCP - ACO Reach 12/30/22 Mariela Rashid MD [address] [facility] [place] [place] [address] PCP - General Family Medicine 01/25/23 Clinical Assoc Relationship Specialty Start Date End Date Michell France NP PCP - ACO Reach 12/30/22 Mariela Rashid MD [address] [place] [address] PCP - General Family Medicine 01/25/23 Brooks Jeffery, [employer] [address] [place] [address], [place] [address] Licensed Practical Nurse Family Medicine 08/22/24 Clinical Assoc Relationship Specialty Start Date End Date Michell France NP PCP - ACO Reach 12/30/22 Mariela Rashid MD [address] [place] [address] PCP - General Family Medicine 01/25/23 Brooks Jeffery, [employer] [address] [place] [address], [place] [address] Licensed Practical Nurse Family Medicine 08/22/24 Clinical Assoc Relationship Specialty Start Date End Date Mariela Rashid MD [address] [place] [address] [place] [address] PCP - General Family Medicine 05/09/17 Clinical Assoc Relationship Specialty Start Date End Date Mariela Rashid MD [address] [place] [address] [place] [address] PCP - General Family Medicine 05/09/17 Clinical Assoc Relationship Specialty Start Date End Date Mariela Rashid MD [address] [place] [address] [place] [address] PCP - General Family Medicine 01/25/23 Mariela Rashid MD [address] [place] [address] PCP - ACO Reach 09/14/24 Brooks Jeffery, [employer] [address] [place] [address], [place] [address] Licensed Practical Nurse Family Medicine 08/22/24 Clinical Assoc Relationship Specialty Start Date End Date Mariela Rashid MD [address] [place] [address] PCP - General Family Medicine 01/25/23 Mariela Rashid MD [address] [place] [address] PCP - ACO Reach 09/14/24 Brooks Jeffery, [facility] [address] [place] [address], [place] [address] Licensed Practical Nurse Family Medicine 08/22/24 Clinical Assoc Relationship Specialty Start Date End Date Mariela Rashid MD [address] [place] [address] PCP - General Family Medicine 05/09/17 Clinical Assoc Relationship Specialty Start Date End Date Mariela Rashid MD [address] [place] [address] PCP - General Family Medicine 05/09/17 Clinical Assoc Relationship Specialty Start Date End Date Mariela Rashid MD [address] [place] [address] PCP - General Family Medicine 05/09/17 Clinical Assoc Relationship Specialty Start Date End Date Mariela Rashid MD [address] [place] [address] PCP - General Family Medicine 01/25/23 Mariela Rashid MD [address] [place] [address] PCP - ACO Reach 09/14/24 Brooks Jeffery, [facility] [address] [place] [address], [place] [address] Licensed Practical Nurse Family Medicine 08/22/24 Clinical Assoc Relationship Specialty Start Date End Date Mariela Rashid MD [address] [place] [address] PCP - General Family Medicine 01/25/23 Mariela Rashid MD [address] [place] [address] [place] [address] PCP - ACO Reach 09/14/24 Brooks Jeffery, [facility] [address] [place] [address], [place] [address] Licensed Practical Nurse Family Medicine 08/22/24 Clinical Assoc Relationship Specialty Start Date End Date Mariela Rashid MD [address] [place] [address] PCP - General Family Medicine 01/25/23 Mariela Rashid MD [address] [place] [address] PCP - ACO Reach 09/14/24 Brooks Jeffery, [facility] [address] [place] [address], [place] [address] Licensed Practical Nurse Family Medicine 08/22/24 Clinical Assoc Relationship Specialty Start Date End Date Mariela Rashid MD [address] [place] [address] PCP - General Family Medicine 01/25/23 Mariela Rashid MD [address] [facility] [place] [address] PCP - ACO Reach 09/14/24 Brooks Jeffery, [employer] [address] [place] [address], [place] [address] Licensed Practical Nurse Family Medicine 08/22/24 Clinical Assoc Relationship Specialty Start Date End Date Mariela Rashid MD PCP - General Family Medicine 05/09/17 Clinical Assoc Relationship Specialty Start Date End Date Mariela Rashid MD PCP - General Family Medicine 05/09/17 Clinical Assoc Relationship Specialty Start Date End Date Mariela Rashid MD [address] [facility] [place] [address] PCP - General Family Medicine 01/25/23 Mariela Rashid MD [address] [facility] [place] [address] PCP - ACO Reach 09/14/24 Brooks Jeffery, [employer] [address] [place] [address], [place] [address] Licensed Practical Nurse Family Medicine 08/22/24 Clinical Assoc Relationship Specialty Start Date End Date Mariela Rashid MD PCP - General Family Medicine 05/09/17 Clinical Assoc Relationship Specialty Start Date End Date Mariela Rashid MD [address] [place] [address] PCP - General Family Medicine 01/25/23 Mariela Rashid MD [address] [place] [address] PCP - ACO Reach 09/14/24 Brooks Jeffery, [employer] [address] [place] [address] Licensed Practical Nurse Family Medicine 08/22/24 Clinical Assoc Relationship Specialty Start Date End Date Mariela Rashid MD [address] [place] [address] PCP - General Family Medicine 01/25/23 Mariela Rashid MD [address] [place] [address] PCP - ACO Reach 09/14/24 Brooks Jeffery, [employer] [address] [place] [address], [place] [address] Licensed Practical Nurse Family Medicine 08/22/24 Clinical Assoc Relationship Specialty Start Date End Date Mariela Rashid MD [address] [place] [address] PCP - General Family Medicine 01/25/23 Mariela Rashid MD [address] [place] [address] PCP - ACO Reach 09/14/24 Brooks Jeffery, [employer] [address] [place] [address], [place] [address] Licensed Practical Nurse Family Medicine 08/22/24 Clinical Assoc Relationship Specialty Start Date End Date Mariela Rashid MD [address] [place] [address] PCP - General Family Medicine 12/06/24 Clinical Assoc Relationship Specialty Start Date End Date Mariela Rashid MD [address] [place] [address] PCP - General Family Medicine 12/06/24 Clinical Assoc Relationship Specialty Start Date End Date Mariela Rashid MD [address] [place] [address] PCP - General Family Medicine 01/25/23 Mariela Rashid MD [address] [place] [address] PCP - ACO Reach 09/14/24 Brooks Jeffery LPN [address] [place] [address], [place] [address] Licensed Practical Nurse Family Medicine 08/22/24 Clinical Assoc Relationship Specialty Start Date End Date Mariela Rashid MD [address] [place] [address] PCP - General Family Medicine 01/25/23 Mariela Rashid MD [address] [place] [address] PCP - ACO Reach 09/14/24 Brooks Jeffery LPN [address] [place] [address], [place] [address] Licensed Practical Nurse Family Medicine 08/22/24 Clinical Assoc Relationship Specialty Start Date End Date Mariela Rashid MD [address] [place] [address] PCP - General Family Medicine 12/06/24 Clinical Assoc Relationship Specialty Start Date End Date Mariela Rashid MD [address] [facility] [address] PCP - General Family Medicine 12/06/24 Clinical Assoc Relationship Specialty Start Date End Date Mariela Rashid MD [address] [facility] [place] [address] PCP - General Family Medicine 01/25/23 Mariela Rashid MD [address] [facility] [place] [address] PCP - ACO Reach 09/14/24 Brooks Jeffery, [employer] [address] [place] [address] Licensed Practical Nurse Family Medicine 08/22/24 Clinical Assoc Relationship Specialty Start Date End Date Mariela Rashid MD [address] [facility] [place] [address] PCP - General Family Medicine 01/25/23 Mariela Rashid MD [address] [facility] [place] [address] PCP - ACO Reach 09/14/24 Brooks Jeffery [employer] [address] [place] [address], [place] [address] Licensed Practical Nurse Family Medicine 08/22/24 Clinical Assoc Relationship Specialty Start Date End Date Mariela Rashid MD [address] [facility] [place] [address] PCP - General Family Medicine 01/25/23 Mariela Rashid MD [address] [place] [address] PCP - ACO Reach 09/14/24 Brooks Jeffery, [employer] [address] [place] [address], [place] [address] Licensed Practical Nurse Family Medicine 08/22/24 Clinical Assoc Relationship Specialty Start Date End Date Mariela Rashid MD [address] [place] [address] PCP - General Family Medicine 01/25/23 Mariela Rashid MD [address] [place] [address] PCP - ACO Reach 09/14/24 Brooks Jeffery, [employer] [address] [place] [address], [place] [address] Licensed Practical Nurse Family Medicine 08/22/24 Clinical Assoc Relationship Specialty Start Date End Date Mareila Rashid MD [address] [place] [address] PCP - General Family Medicine 01/25/23 Mariela Rashid MD [address] [place] [address] PCP - ACO Reach 09/14/24 Brooks Jeffery, [employer] [address] [place] [address], [place] [address] Licensed Practical Nurse Family Medicine 08/22/24 Clinical Assoc Relationship Specialty Start Date End Date Mariela Rashid MD [address] [place] [address] PCP - General Family Medicine 01/25/23 Mariela Rashid MD [address] [place] [address] PCP - ACO Reach 09/14/24 Brooks Jeffery, [employer] [address] [place] [address], [place] [address] Licensed Practical Nurse Family Medicine 08/22/24 Clinical Assoc Relationship Specialty Start Date End Date Mariela Rashid MD [address] [place] [address] PCP - General Family Medicine 01/25/23 Mariela Rashid MD [address] [place] [address] PCP - ACO Reach 09/14/24 Brooks Jeffery, [employer] [address] [place] [address], [place] [address] Licensed Practical Nurse Family Medicine 08/22/24 Clinical Assoc Relationship Specialty Start Date End Date Mariela Rashid MD [address] [place] [address] PCP - General Family Medicine 01/25/23 Mariela Rashid MD [address] [place] [address] PCP - ACO Reach 09/14/24 Brooks Jeffery, [employer] [address] [place] [address], [place] [address] Licensed Practical Nurse Family Medicine 08/22/24 Clinical Assoc Relationship Specialty Start Date End Date Mariela Rashid MD [address] [place] [address] PCP - General Family Medicine 01/25/23 Mariela Rashid MD [address] [place] [address] PCP - ACO Reach 09/14/24 Brooks Jeffery, [employer] [address] [place] [address], [place] [address] Licensed Practical Nurse Family Medicine 08/22/24 Clinical Assoc Relationship Specialty Start Date End Date Mariela Rashid MD [address] [place] [address] PCP - General Family Medicine 12/06/24 Clinical Assoc Relationship Specialty Start Date End Date Mareila Rashid MD [address] [place] [address] PCP - General Family Medicine 12/06/24 Clinical Assoc Relationship Specialty Start Date End Date Mariela Rashid MD [address] [place] [address] PCP - General Family Medicine 01/25/23 Mariela Rashid MD [address] [place] [address] [place] [address] PCP - ACO Reach 09/14/24 Brooks Jeffery, [employer] [address] [place] [address] Licensed Practical Nurse Family Medicine 08/22/24 Clinical Assoc Relationship Specialty Start Date End Date Mariela Rashid MD [address] [place] [address] [place] [address] PCP - General Family Medicine 12/06/24 Clinical Assoc Relationship Specialty Start Date End Date Mariela Rashid MD [address] [place] [address] PCP - General Family Medicine 12/06/24 Clinical Assoc Relationship Specialty Start Date End Date Mariela Rashid MD [address] [place] [address] PCP - General Family Medicine 01/25/23 Mariela Rashid MD [address] [place] [address] PCP - ACO Reach 09/14/24 Brooks Jeffery LPN [id number] [place] [id number] Licensed Practical Nurse Family Medicine 08/22/24 Reason for Visit (unrecogniz ed section and content) Reason Comments Medicare Annual Wellness Visit Subsequen t Reason Comments Thyroid Problem Specialty Diagnoses / Procedures Referred By Contac t Referred To Contact Endocrinology Diagnoses Hyperthyroidism (CMS/HCC) Procedures MD OFFICE/OUTPATIENT [facility] 60 MINUTES Mariela Rashid MD [address] [place] [address] Phone: tel: fax: Shikha Rowell MD [address] [place] [address] Phone: tel: fax: Referral ID Status Reason Start Date Expiration Date V isits Requested Visits Authorized [id number] Closed Specialty Services Required 08/19/2024 02/15/2025 1 [...] Patient Atrial Fibrillation Pre-op Exam Cysto/TURP @ [facility] [address] [place], 11/01/2024 Reason Comments Follow-up EST PT F/U A [facility] ED W/PT Reason Comments Rectal Bleeding Reason Comments Rectal Bleeding Rectal bleeding, H ER 11/30/24, last colon 10/14/23 Specialty Diagnoses / Procedures Referred By Contac t Referred To Contact General Surgery Diagnoses Rectal bleeding Anette Hannon, [employer] [address] [place] [address] Phone: tel: fax: Ishaan Zaman MD [address] [place] [address] Phone: tel: fax: Referral ID Status Reason Start Date Expiration Date V isits Requested Visits Authorized [id number] Closed Specialty Services Required 11/30/2024 11/30/2025 1 [...] discuss watchm an with BRIDGET 05/02 - l.danay BCD - schd w. pt Reason Comments Hospital Follow-up Reason Comments Excision Reason Comments Toe Pain Singh Bowman 80yo New Patient relates he dropped wheel augustine on his Left great toe. DOI 03/16/2025,Patient [...] section and content) DATE CREATED AUTHOR 12/11/2024 [facility] DATE CREATED AUTHOR AUTHOR'S ORGANIZ ATION 04/26/2025 [facility] DATE CREATED AUTHOR AUTHOR'S ORGANIZ ATION 04/27/2025 [facility] DATE CREATED AUTHOR AUTHOR'S ORGANIZ ATION 04/30/2025 [facility] DATE CREATED AUTHOR AUTHOR'S ORGANIZ ATION 05/14/2025 [facility] Scheduled Active and Recently Administ ered [...] BE BASED ON THE PRIMARY CLINICAL RECORDS. [employer] provides no warranty or guarantee of the accuracy or completeness of information in this document.
[2025-05-21] MEDS: CEFAZOLIN SODIUM 2 GM/50 ML D5W PREMIX IV (09:18)
[2025-05-21] MEDS: IOHEXOL 300 MG/ML - 50 ML BTL INJ (09:49)
--- NOTE | 2025-05-21 10:05 | P.URON_ITS ---
Urology Surgery Operative Note Operative Note Procedure Date: 05/21/25 Time Out Performed: yes Pre-op Diagnosis: Obstructing right ureteral calculus and RICARDO Post-op Diagnosis: other (Obstructed right distal ureter from stenosis and no evidence of ureteral stone) Procedures performed: 1. Cystoscopy. 2. Right retrograde pyelogram. 3. Right ureteroscopy. 4. Placement of 6 Jamaican variable length right ureteral stent Anesthesia: CLAUDE Primary Surgeon: Manolo Dotson Complications: None Estimated blood loss (mL): 0 Findings: 1. 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 2. No evidence of right ureteral calculus. 3. Adhered old blood clots to the lining of the distal third of the ureter Specimens: None Drains: 6 Jamaican variable length right ureteral stent Indications for Procedures: This gentleman had a 4 mm right ureteral calculus causing obstruction, hydronephrosis and RICARDO. His pain subsided although he never subjectively passed a stone. Repeat imaging with IVP showed persistence of the stone and the hydronephrosis. He now presents for definitive ureteroscopic stone manipulation and possible right stent placement. He has signed an informed consent after risks were explained. Detailed description of Procedure: The patient was brought to the operating room and placed on the operating room table in the supine position. SCDs were placed on the lower extremities and turned on and functioning during the entire case. Timeout was done by all parties in the room. We all agreed upon the patient's identification and the planned procedures for this patient. Genn. anesthesia was then administered. The patient was then repositioned into the modified dorsal lithotomy position. All pressure points were satisfactorily padded. Genitalia were sterilely prepped and draped in usual fashion. I started by passing a 22 Jamaican Olympus cystoscope per urethra and into the bladder. The anterior urethra was normal. Prostatic urethra was open with some mild regrowth. Panendoscopy in the bladder revealed high-grade trabeculation with open diverticuli diffusely. I then passed a Glidewire through the scope and cannulated the right ureter. Within a few centimeters the wire buckled. I used fluoroscopy and I was unable to appreciate a stone in the region that the wire was buckling. I then passed a semirigid ureteroscope through the urethra into the bladder and into the right ureter. I encountered significant ureteral stenosis. I then did a retrograde pyelogram through the scope. This showed a narrowed distal third of the ureter and then mild proximal dilatation. I then passed a Glidewire through the scope and through the narrowing and was able to get it up into the kidney. I then passed the scope over the wire through the narrowed area and realized that the entire ureteral lining through this narrowed area had old blood clots adhered to it. These were actually indurated. I found no evidence of stone here. I wonder if there was some calcification in this process that tripped the CAT scan and IVP to falsely interpret this as ureteral calculus. I continued ascending up the ureter and arrived at normal ureter in the mid sacral ureteral section. I then scoped all the way up to the UPJ and back. Upon reinspecting this area of narrowing 1 could see sequential rings of narrowing i.e. developing ureteral strictures. Nothing appeared concerning for malignancy. This all seem to be old blood clots, chronic inflammatory changes and stricture formation. The scope was then removed. The cystoscope was then backloaded over the wire and passed into the bladder. I then slid a 6 Jamaican variable length stent over the wire up into the kidney. The wire was removed and there were good curls in the kidney and in the bladder. The bladder was drained of its contents and the scope was then removed. The anesthetic was then reversed. He was then transferred to a rochlocknee bed and wheeled to PACU in stable condition.
== END 2025-05-21 11:35 | disposition home or self-care (01) ==
LOC: SURGOUT 07:59
PROVIDERS: PCP Family Medicine; Visit Provider Urology
PROC: (CPT 52332; principal; 2025-05-21 08:50)
DX: Q62.10 Congenital occlusion of ureter, unspecified (principal); N17.9 Acute kidney failure, unspecified; N32.89 Other specified disorders of bladder; I48.91 Unspecified atrial fibrillation; M19.90 Unspecified osteoarthritis, unspecified site; F03.90 Unspecified dementia, unspecified severity, without behavioral disturbance, psychotic disturbance, mood disturbance, and anxiety; N40.0 Benign prostatic hyperplasia without lower urinary tract symptoms; I10 Essential (primary) hypertension; E78.5 Hyperlipidemia, unspecified; Z90.49 Acquired absence of other specified parts of digestive tract; Z90.79 Acquired absence of other genital organ(s); Z79.01 Long term (current) use of anticoagulants; Z87.891 Personal history of nicotine dependence; E05.90 Thyrotoxicosis, unspecified without thyrotoxic crisis or storm
CPT/HCPCS: 52332; 52351; 36415; 74420; J0131; J0690; J1100; J2405; J2704; J3010; Q9967